=== PATIENT | male | born 1945 | race Caucasian/White ===

== ENCOUNTER 2021-09-01 23:45 | Inpatient (IN) | payer MEDICARE, OTHER ==
--- NOTE | 2021-09-01 23:53 | ED ---
Chest Pain HPI - General Stated Complaint: Chest Pain Time Seen by Provider: 09/01/21 23:47 Source: RN notes reviewed, old records reviewed Mode of arrival: EMS Limitations: no limitations - History of Present Illness Initial Comments: This is a 76-year-old male who is accepted as a transfer patient to hospital. Patient presents to outside facility for shortness of breath chest pain. Patient has no other significant current complaints. Symptoms of chest pain shortness of breath or improving. Patient denying any recent fever cough or congestion without any other new complaints MD Complaint: chest pain -: hour(s) Onset: during rest, during exertion Pain Location: substernal, left chest Pain Radiation: LUE Severity: moderate Severity scale (1-10): 4 Quality: tightness Consistency: intermittent Improves With: nitroglycerin Worsens With: nothing Context: new medications Anginal Symptoms: dyspnea Other Symptoms: palpitations Treatments Prior to Arrival: aspirin, nitroglycerin, oxygen - Related Data Allergies Allergy/AdvReac Type Severity Reaction Status Date / Time No Known Allergies Allergy Verified 09/02/21 00:13 Review of Systems ROS Statement: Those systems with pertinent positive or pertinent negative responses have been documented in the HPI. ROS Other: All systems not noted in ROS Statement are negative. EKG Findings - EKG Comments: EKG Findings:: EKG shows sinus rhythm 80 ID 186 QRS 150 QTC 493 General Exam General appearance: alert, in no apparent distress, anxious Head exam: Present: atraumatic, normocephalic, normal inspection Eye exam: Present: normal appearance, PERRL, EOMI. Absent: scleral icterus, conjunctival injection, periorbital swelling ENT exam: Present: normal exam, mucous membranes moist Neck exam: Present: normal inspection. Absent: tenderness, meningismus, lymphadenopathy Respiratory exam: Present: normal lung sounds bilaterally. Absent: respiratory distress, wheezes, rales, rhonchi, stridor Cardiovascular Exam: Present: regular rate, normal rhythm, normal heart sounds. Absent: systolic murmur, diastolic murmur, rubs, gallop, clicks GI/Abdominal exam: Present: soft, normal bowel sounds. Absent: distended, tenderness, guarding, rebound, rigid Extremities exam: Present: normal inspection, full ROM, normal capillary refill. Absent: tenderness, pedal edema, joint swelling, calf tenderness Back exam: Present: normal inspection Neurological exam: Present: alert, oriented X3, CN II-XII intact Psychiatric exam: Present: normal affect, normal mood Skin exam: Present: warm, dry, intact, normal color. Absent: rash Course Vital Signs 09/01/21 23:48 Pulse Rate 81 Respiratory 18 Rate Blood Pressure 146/83 O2 Sat by Pulse 95 Oximetry - Reevaluation(s) Reevaluation #1: 09/02/21 02:00 Medical record is reviewed Reevaluation #2: 09/02/21 02:00 Transfer paperwork is also been reviewed Reevaluation #3: 09/02/21 02:00 Patient informed results and questions answered Chest Pain MDM - MDM 86 male presenting from outside facility for chest pain with elevated troponin, acute non-ST elevated FL. Patient be admitted for cardiac evaluation and treatment Disposition Clinical Impression: Chest pain, Acute non-ST elevation myocardial infarction (NSTEMI) Disposition: ADMITTED IP TO THIS [facility] Condition: Serious Is patient prescribed a controlled substance at d/c from ED?: No Referrals: Fernando Baker MD [Primary Care Provider] - 1-2 days
[2021-09-02 00:24] LABS: Basophils % (A) 0 %; Eosinophils # (A) 0.1 k/uL (0-0.7); Eosinophils % (A) 0 %; HCT 42.9 % (39.0-53.0); HGB 13.1 gm/dL (13.0-17.5); Lymphocytes % (A) 8 %; MCH 29.7 pg (25.0-35.0); MCHC 30.7 g/dL (31.0-37.0); MCV 96.8 fL (80.0-100.0); Monocytes # (A) 0.3 k/uL (0-1.0); Monocytes % (A) 3 %; Neutrophils # (A) 11.6 k/uL (1.3-7.7); Neutrophils % (A) 89 %; Platelet Count 216 k/uL (150-450); RBC 4.43 m/uL (4.30-5.90); WBC 13.1 k/uL (3.8-10.6)
[2021-09-02 00:41] LABS: INR 1.3 (<1.2); Partial Thromboplastin Time 24.8 sec (22.0-30.0); Prothrombin Time 13.6 sec (9.0-12.0)
--- NOTE | 2021-09-02 00:41 | XR ---
EXAMINATION TYPE: XR chest 2V DATE OF EXAM: 09/02/2021 COMPARISON: NONE HISTORY: Chest pain TECHNIQUE: 2 views FINDINGS: There is some blunting of the left costophrenic angle. Heart size is normal. There are no h ilar masses. There are chest leads. Thoracic aorta is atheromatous. IMPRESSION: There is small left pleural effusion. No heart failure.
[2021-09-02 01:04] LABS: Calcium 9.8 mg/dL (8.4-10.2); Total Bilirubin 1.5 mg/dL (0.2-1.3)
[2021-09-02 01:56] LABS: Magnesium 1.4 mg/dL (1.6-2.3); Potassium 4.7 mmol/L (3.5-5.1)
[2021-09-02 01:57] LABS: Total Protein 6.9 g/dL (6.3-8.2)
[2021-09-02] MEDS ORDERED: HEPARIN SODIUM 1,000 UN/ML (10ML VL) IV ONE (01:58)
[2021-09-02] MEDS ORDERED: MORPHINE SULFATE 4 MG/ML SYRINGE IV PRN (01:58)
[2021-09-02] MEDS ORDERED: NITROGLYCERIN SL TABS 0.4 MG TAB SUBLINGUAL PRN (01:58)
[2021-09-02] MEDS: HEPARIN SOD,PORK IN 0.45% NACL 25,000 UNIT in 0.45% NACL 1 250ML.BAG IV SCH (02:19)
[2021-09-02] MEDS: METOPROLOL TARTRATE 25 MG TAB PO SCH ×2 (08:49→21:43)
--- NOTE | 2021-09-02 09:18 | P.CRDCN ---
History of Present Illness Consult date: 09/02/21 Consult reason: non-Q-wave MO Chief complaint: Chest pain History of present illness: 76-year-old gentleman with history of diabetes coronary artery disease status post prior angioplasty who lives in [facility] and had a kier hand in [place] but had myocardial infarction and angioplasty of either circumflex coronary artery and LAD in November of last year He comes in complaining of chest pain. He describes it as a pressure in the middle of his chest as a burning discomfort moderate to severe intensity at rest unrelated to exertion and not associated with diaphoresis. He had mild shortness of breath associated with it There is no history of leg edema PND or orthopnea There is no history of focal neurological deficits EKG shows sinus rhythm with nonspecific ST-T wave changes 2 sets of troponins are slightly elevated Patient is currently in IV heparin beta blockers and aspirin I advised the patient to undergo cardiac catheterization for further evaluation he had been explained of risk benefits and alternatives understood and accepted I will add a statin to what he is on I will obtain a 2-D echo to evaluate his LV function Review of Systems Constitutional: Denies chills. Denies fever. Eyes: Denies blurred vision. Denies pain. Ears, nose, mouth and throat: Denies headache. Denies sore throat. Cardiovascular: Significant for chest pain and mild shortness of breath Respiratory: Denies cough. Gastrointestinal: Denies abdominal pain. Denies diarrhea. Denies nausea. Denies vomiting. Musculoskeletal: Denies myalgias. Integumentary: Denies pruritus. Denies rash. Neurological: Denies numbness. Denies weakness. Psychiatric: Denies anxiety. Denies depression. Endocrine: Denies fatigue. Denies weight change. Genitourinary: Denies burning, hematuria, frequency of urination. Hematological: No anemia or excess bleeding. Past Medical History Past Medical History: Atrial Fibrillation, Asthma, Coronary Artery Disease (CAD), CVA/TIA, Diabetes Mellitus, Hypertension Additional Past Medical History / Comment(s): type 2 diabetes controlled History of Any Multi-Drug Resistant Organisms: None Reported Past Surgical History: Heart Catheterization With Stent, Orthopedic Surgery Additional Past Surgical History / Comment(s): stent placed november 2020 Past Anesthesia/Blood Transfusion Reactions: No Reported Reaction Date of Last Stent Placement:: 11/2020 Past Psychological History: Anxiety, Depression Smoking Status: Never smoker Past Alcohol Use History: Occasional - Past Family History Mother Family Medical History: Dementia Additional Family Medical History / Comment(s): mother at 58 years old of alzhimar disease Brother(s) Family Medical History: CVA/TIA, Dementia Father Family Medical History: Diabetes Mellitus Additional Family Medical History / Comment(s): of old age at 92 years old Sister(s) Family Medical History: Cancer, Coronary Artery Disease (CAD) Additional Family Medical History / Comment(s): Sister of lung cancer Medications and Allergies Allergies Allergy/AdvReac Type Severity Reaction Status Date / Time No Known Allergies Allergy Verified 09/02/21 09:11 Physical Exam Vitals: Vital Signs Temp Pulse Pulse Resp BP BP Pulse Ox 09/02/21 08:00 98.4 F 69 16 148/79 09/02/21 04:15 97.9 F 73 18 154/84 97 09/02/21 02:16 62 18 130/69 95 09/01/21 23:48 81 18 146/83 95 Intake and Output 09/01/21 09/02/21 09/02/21 22:59 06:59 14:59 Other: # Voids 1 Weight 97.522 kg General: The patient is awake and alert, in no distress, and does not appear acutely ill. Skin: Skin is warm and dry and no rashes or lesions are noted. Eye: Pupils are equal, round and reactive to light, extra-ocular movements are intact; there is normal conjunctiva bilaterally. Ears, nose, mouth and throat: There are moist mucous membranes and no oral lesions. Neck: The neck is supple, there is no tenderness or JVD. Cardiovascular: There is a regular rate and rhythm. No murmur, rub or gallop is appreciated. Respiratory: Lungs show mild bilateral wheezes Gastrointestinal: Soft, non-distended, non-tender abdomen without masses or organomegaly noted. There is no rebound or guarding present. Bowel sounds are unremarkable. Back: There is no tenderness to palpation in the midline. There is no obvious deformity. Musculoskeletal: Normal ROM, no tenderness, There is no pedal edema. There is no calf tenderness or swelling. Extremities: No edema. Vascular: Femoral pulse is normal. Posterior tibial pulses are normal .Dorsalis pedis is palpable. Neurological: CN II-XII intact. There are no obvious motor or sensory deficits. Speech is normal. Psychiatric: Cooperative, appropriate mood & affect, normal judgment. Results 09/02/21 00:09 09/02/21 00:09 Cardiac Enzymes 09/02/21 09/02/21 09/02/21 Range/Units 00:09 00:09 04:46 AST 41 (17-59) U/L Troponin I 0.161 H* 0.203 H* (0.000-0.034) ng/mL Coagulation 09/02/21 Range/Units 00:09 PT 13.6 H (9.0-12.0) sec APTT 24.8 (22.0-30.0) sec CBC 09/02/21 Range/Units 00:09 WBC 13.1 H (3.8-10.6) k/uL RBC 4.43 (4.30-5.90) m/uL Hgb 13.1 (13.0-17.5) gm/dL Hct 42.9 (39.0-53.0) % Plt Count 216 (150-450) k/uL Comprehensive Metabolic Panel 09/02/21 Range/Units 00:09 Sodium 139 (137-145) mmol/L Potassium 4.7 (3.5-5.1) mmol/L Chloride 107 (98-107) mmol/L Carbon Dioxide 21 L (22-30) mmol/L BUN 26 H (9-20) mg/dL Creatinine 1.59 H (0.66-1.25) mg/dL Glucose 125 H (74-99) mg/dL Calcium 9.8 (8.4-10.2) mg/dL AST 41 (17-59) U/L ALT 18 (4-49) U/L Alkaline Phosphatase 69 (38-126) U/L Total Protein 6.9 (6.3-8.2) g/dL Albumin 4.0 (3.5-5.0) g/dL Current Medications Generic Name Dose Route Start Last Admin Trade Name Freq PRN Reason Stop Dose Admin Aspirin 325 mg 09/03/21 09:00 Aspirin 325 Mg Tab PO DAILY ALLYSON Heparin Sodium/Sodium Chloride 250 mls @ 10 mls/hr 09/02/21 02:00 09/02/21 02:19 25,000 unit/ Sodium Chloride IV 10.254 units/kg/hr .Q24H ALLYSON 10 mls/hr Administration Protocol 10.254 UNITS/KG/HR Metoprolol Tartrate 25 mg 09/02/21 09:00 09/02/21 08:49 Metoprolol Tartrate 25 Mg Tab PO 25 mg BID ALLYSON Administration Morphine Sulfate 4 mg 09/02/21 01:58 Morphine Sulfate 4 Mg/Ml Syringe IV Q4HR PRN Chest Pain Nitroglycerin 0.4 mg 09/02/21 01:58 Nitroglycerin Sl Tabs 0.4 Mg Tab SUBLINGUAL Q5M PRN Chest Pain Intake and Output 09/01/21 09/02/21 09/02/21 22:59 06:59 14:59 Other: # Voids 1 Weight 97.522 kg 09/02/21 00:09 09/02/21 00:09 EKG Interpretations (text) Normal sinus rhythm right bundle branch block nonspecific ST-T wave changes Assessment and Plan Assessment: Acute non-ST segment elevation MO Known CAD status post prior angioplasty Acute renal insufficiency Bronchospasm [id number] diabetes Plan: I advised the patient to undergo cardiac catheterization I will hydrate him and possible cath tomorrow I will treat the patient with aspirin nitrates beta blockers intravenous heparin Check an echocardiogram Check lipid profile Start lipid-lowering agents I will start albuterol and Atrovent
[2021-09-02] MEDS ORDERED: ASPIRIN 325 MG TAB PO STA (09:39)
[2021-09-02] MEDS ORDERED: IPRATROPIUM 0.5 MG/2.5 ML NEBU INHALATION PRN (09:40)
[2021-09-02] MEDS: NITROGLYCERIN OINT 1 INCH/GM PACKET TOPICAL SCH ×2 (12:02→17:23)
[2021-09-02] MEDS: ALBUTEROL HFA INHALER INHALATION SCH ×3 (12:04→20:01)
[2021-09-02] MEDS: IPRATROPIUM 0.5 MG/2.5 ML NEBU INHALATION SCH ×3 (12:06→20:01)
[2021-09-02] MEDS ORDERED: ALBUTEROL HFA INHALER INHALATION PRN (13:12)
--- NOTE | 2021-09-02 14:00 | ECHOF ---
Referral Reason:nstemi MEASUREMENTS -------- HEIGHT: 152.4 cm WEIGHT: 97.1 kg BP: RVIDd: 3.6 cm (< 3.3) IVSd: 1.3 cm (0.6 - 1.1) LVIDd: 4.8 cm (3.9 - 5.3) LVPWd: 1.5 cm (0.6 - 1.1) IVSs: 2.0 cm LVIDs: 3.9 cm LVPWs: 1.5 cm LA Diam: 4.9 cm (2.7 - 3.8) LAESV Index (A-L): 52.67 ml/m Ao Diam: 2.5 cm (2.0 - 3.7) AV Cusp: 1.4 cm (1.5 - 2.6) LA Diam: 5.2 cm (2.7 - 3.8) MV EXCURSION: 20.304 mm (> 18.000) MV EF SLOPE: 85 mm/s (70 - 150) EPSS: 1.0 cm MV E Ralph: 0.99 m/s MV DecT: 126 ms MV A Ralph: 0.38 m/s MV E/A Ratio: 2.64 AV maxP.22 mmHg AV meanP.25 mmHg RAP: 5.00 mmHg RVSP: 42.90 mmHg FINDINGS -------- Sinus rhythm. This was a technically adequate study. The left ventricular size is normal. There is mild concentric left ventricular hypertrophy. Overa ll left ventricular systolic function is mildly impaired with, an EF between 45 - 50 %. The right ventricle is normal in size. LA is severely dilated >40 ml/m2 The right atrial size is normal. There is mild aortic regurgitation. There is mild aortic stenosis present. Peak/mean gradient acr oss the Aortic Valve is 19.22mmHg / 12.25mmHg. Can't exclude Bicuspid valve vs fused cusp. Moderate mitral regurgitation is present. No regurgitation noted There is mild pulmonary hypertension. The right ventricular systolic press ure, as measured by Doppler, is 42.90mmHg. Trace/mild (physiologic) pulmonic regurgitation. There is no pericardial effusion. CONCLUSIONS -------- 1. The left ventricular size is normal. 2. There is mild concentric left ventricular hypertrophy. 3. Overall left ventricular systolic function is mildly impaired with, an EF between 45 - 50 %. 4. The right ventricle is normal in size. 5. LA is severely dilated >40 ml/m2 6. The right atrial size is normal. 7. There is mild aortic regurgitation. 8. There is mild aortic stenosis present. 9. Peak/mean gradient across the Aortic Valve is 19.22mmHg / 12.25mmHg. 10. Can't exclude Bicuspid valve vs fused cusp. 11. Moderate mitral regurgitation is present. 12. No regurgitation noted 13. There is mild pulmonary hypertension. 14. The right ventricular systolic pressure, as measured by Doppler, is 42.90mmHg. 15. Trace/mild (physiologic) pulmonic regurgitation. 16. There is no pericardial effusion. CASE PACKER AND SEALER: Clarissa Rashid RDCS
[2021-09-02] MEDS: MAGNESIUM OXIDE 400 MG TAB PO SCH (17:22)
[2021-09-02] MEDS: busPIRone HCl 10 MG TAB PO SCH ×2 (17:22→21:43)
[2021-09-02] MEDS: CITALOPRAM HYDROBROMIDE 20 MG TAB PO SCH (17:22)
[2021-09-02] MEDS: PANTOPRAZOLE 40 MG TABLET PO SCH (17:23)
[2021-09-02] MEDS: TIMOLOL 0.5% OPHTH DROPS 5 ML BTL BOTH EYES SCH ×2 (17:23→21:44)
[2021-09-02] MEDS: CLOPIDOGREL 75 MG TAB PO SCH (17:23)
[2021-09-02] MEDS: FENOFIBRATE 54 MG TAB PO SCH (17:27)
[2021-09-02] MEDS: BRIMONIDINE TARTRATE 0.2% DROPS 5 ML BTL BOTH EYES SCH ×2 (17:27→21:44)
[2021-09-02] MEDS: lisinopriL 20 MG TAB PO SCH ×2 (17:28→21:43)
[2021-09-02] MEDS: ATORVASTATIN 80 MG TAB PO SCH (17:29)
[2021-09-02] MEDS: allopurinoL 100 MG TAB PO SCH (17:29)
[2021-09-02] MEDS ORDERED: NALOXONE 0.4 MG/ML 1 ML VIAL IV PRN (19:07)
[2021-09-02] MEDS ORDERED: ONDANSETRON 4 MG/2 ML VIAL IVP PRN (19:08)
[2021-09-02] MEDS ORDERED: LACTULOSE 20 GM/30 ML CUP PO PRN (19:08)
[2021-09-02] MEDS ORDERED: MELATONIN 3 MG TABLET PO PRN (19:08)
[2021-09-02] MEDS ORDERED: ALPRAZolam 0.25 MG TAB PO PRN (19:08)
[2021-09-02] MEDS ORDERED: CALCIUM CARBONATE 500 MG CHEWABLE PO PRN (19:08)
[2021-09-02] MEDS ORDERED: ACETAMINOPHEN TAB 325 MG TAB PO PRN (19:08)
--- NOTE | 2021-09-02 19:09 | P.HPIM ---
History of Present Illness H&P Date: 09/02/21 Chief Complaint: Chest pressure This is a pleasant 76-year-old patient, follows with Dr. Baker. Chronic stable medical conditions include atrial fibrillation, asthma, diabetes, hypertension, CAD with stent placed in November 2020. 2 days ago patient felt like a heaviness in the chest that started the evening and progressive the whole night. He started feeling like a burning sensation in the chest progressed to go to his throat. Relevant elephants sitting. There was no dizziness or lightheadedness. Patient felt short of breath. No perspiration. Finding decided to come in. Worse with activity. Some relief with rest. No radiation to the throat. Admitted with unstable angina. 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 . Denies any history of smoking or alcohol. Family history: Mother from Alzheimer's disease age of 58. Physical examination: VITAL SIGNS: Afebrile, 81, 18, 1 46 x 83, 95% room air upon presentation GENERAL: BMI 30.8, laying in bed, awake, not in distress. EYES: Pupils equal. Conjunctiva normal. HEENT: External appearance of nose and ears normal, oral cavity grossly normal. NECK: JVD not raised; masses not palpable. HEART: First and second heart sounds are normal; no edema. LUNGS: Respiratory rate normal; clear to auscultation. ABDOMEN: Soft, nontender, liver spleen not palpable, no masses palpable. PSYCH: Alert and oriented x3; mood and affect normal. MUSCULOSKELETAL:No Clubbing/cyanosis;muscles-grossly intact NEUROLOGICAL: Cranial nerves grossly intact; no facial asymmetry, power and sensation grossly intact. LYMPHATICS: No lymph nodes palpable in the axilla and neck INVESTIGATIONS, reviewed in the clinical context: White count 13.1 hemoglobin 13.1 platelets 216 sodium 139 potassium 4.726 creatinine 1.59 Troponin I 0.161, 0.203, 0.215 Lipase 209 Coronavirus [PCR]: Not detected EKG tracing personally reviewed by me-sinus rhythm, right bundle-branch block, ST segment depression in leads V2 through V5 Chest x-ray film personally reviewed by me-cardiomegaly. Some left pleural effusion 2-D echocardiogram: EF 45-50% moderate mitral regurgitation. Assessment and plan: -Acute non-Q wave myocardial infarction. Patient's symptoms are present for over 48 hours. IV heparin. Aspirin. Beta jairo. Nitropaste. 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 Follow renal function. -Intermittent asthma Albuterol HFA 2 puffs every 4 when necessary -Paroxysmal atrial fibrillation currently in sinus rhythm Hold eliquis. Patient on IV heparin -IV heparin monitoring Follow PTT -Hyperlipidemia Lipitor 80 mg a day -Anxiety depression Celexa 20 mg a day -GERD Omeprazole 20 mg a day -Essential hypertension Zestril 20 mg twice a day, Lopressor 25 mg twice a day -Obesity BMI 30.8 Weight loss measures Home medications resumed. Lopressor. Hold atenolol. On eliquis. IV heparin. Hold Glucophage. Accu-Cheks. We do not have a baseline creatinine. Follow BMP. Consult nephrology. Consult cardiology. Care was discussed with the patient. Given the complexity and severity of patient's condition expect the patient to be in the hospital at least for 2 overnights Past Medical History Past Medical History: Atrial Fibrillation, Asthma, Coronary Artery Disease (CAD), CVA/TIA, Diabetes Mellitus, Hypertension Additional Past Medical History / Comment(s): type 2 diabetes controlled History of Any Multi-Drug Resistant Organisms: None Reported Past Surgical History: Heart Catheterization With Stent, Orthopedic Surgery Additional Past Surgical History / Comment(s): stent placed november 2020 Past Anesthesia/Blood Transfusion Reactions: No Reported Reaction Date of Last Stent Placement:: 11/2020 Past Psychological History: Anxiety, Depression Smoking Status: Never smoker Past Alcohol Use History: Occasional - Past Family History Mother Family Medical History: Dementia Additional Family Medical History / Comment(s): mother at 58 years old of alzhimar disease Brother(s) Family Medical History: CVA/TIA, Dementia Father Family Medical History: Diabetes Mellitus Additional Family Medical History / Comment(s): of old age at 92 years old Sister(s) Family Medical History: Cancer, Coronary Artery Disease (CAD) Additional Family Medical History / Comment(s): Sister of lung cancer Medications and Allergies Home Medications Medication Instructions Recorded Confirmed Type Albuterol Sulfate [Albuterol 2 puff INHALATION RT-Q4H PRN 09/02/21 09/02/21 History Sulfate Hfa] Allopurinol [Zyloprim] 100 mg PO DAILY 09/02/21 09/02/21 History Apixaban [Eliquis] 5 mg PO BID 09/02/21 09/02/21 History Atenolol/Chlorthalidone 1 tab PO DAILY 09/02/21 09/02/21 History [Atenolol/Chlorthalidone 50-25] Atorvastatin [Lipitor] 80 mg PO DAILY 09/02/21 09/02/21 History Bimatoprost [Lumigan .01% Ophth 1 drop BOTH EYES HS 09/02/21 09/02/21 History Soln] Brimonidine Tartrate/Timolol 1 drop BOTH EYES BID 09/02/21 09/02/21 History [Combigan 0.2%-0.5% Eye Drops] Citalopram Hydrobromide [CeleXA] 20 mg PO DAILY 09/02/21 09/02/21 History Clopidogrel [Plavix] 75 mg PO DAILY 09/02/21 09/02/21 History Fenofibrate,Micronized 67 mg PO DAILY 09/02/21 09/02/21 History [Fenofibrate] Magnesium Oxide [Mag-Ox] 1,600 mg PO DAILY 09/02/21 09/02/21 History Multivitamins, Thera [Multivitamin 1 tab PO DAILY 09/02/21 09/02/21 History (formulary)] Omeprazole 20 mg PO DAILY 09/02/21 09/02/21 History busPIRone HCL 10 mg PO BID 09/02/21 09/02/21 History lisinopriL [Zestril] 20 mg PO BID 09/02/21 09/02/21 History metFORMIN HCL ER [Glucophage XR] 500 mg PO DAILY 09/02/21 09/02/21 History Allergies Allergy/AdvReac Type Severity Reaction Status Date / Time No Known Allergies Allergy Verified 09/02/21 09:11 Physical Exam Vitals: Vital Signs Temp Pulse Pulse Resp BP BP Pulse Ox 09/02/21 12:00 103 H 16 144/91 94 L 09/02/21 08:00 98.4 F 69 16 148/79 09/02/21 04:15 97.9 F 73 18 154/84 97 09/02/21 02:16 62 18 130/69 95 09/01/21 23:48 81 18 146/83 95 Intake and Output 09/01/21 09/02/21 09/02/21 22:59 06:59 14:59 Intake Total 86.333 Balance 86.333 Intake: Intake, IV Titration 86.333 Amount Heparin Sod,Pork in 0.45% 86.333 NaCl 25,000 unit In 0.45 % NaCl 1 250ml.bag @ 10. 254 UNITS/KG/HR 10 mls/hr IV .Q24H [facility] Rx#: [id number] Other: # Voids 1 Weight 97.522 kg Results CBC & Chem 7: 09/02/21 00:09 09/02/21 00:09 Labs: Abnormal Lab Results - Last 24 Hours (Table) 09/02/21 09/02/21 09/02/21 Range/Units 00:09 00:09 00:09 WBC 13.1 H (3.8-10.6) k/uL MCHC 30.7 L (31.0-37.0) g/dL Neutrophils # 11.6 H (1.3-7.7) k/uL PT 13.6 H (9.0-12.0) sec INR 1.3 H (<1.2) APTT (22.0-30.0) sec Carbon Dioxide 21 L (22-30) mmol/L BUN 26 H (9-20) mg/dL Creatinine 1.59 H (0.66-1.25) mg/dL Glucose 125 H (74-99) mg/dL Magnesium 1.4 L (1.6-2.3) mg/dL Total Bilirubin 1.5 H (0.2-1.3) mg/dL Troponin I (0.000-0.034) ng/mL 09/02/21 09/02/21 09/02/21 Range/Units 00:09 04:46 08:53 WBC (3.8-10.6) k/uL MCHC (31.0-37.0) g/dL Neutrophils # (1.3-7.7) k/uL PT (9.0-12.0) sec INR (<1.2) APTT (22.0-30.0) sec Carbon Dioxide (22-30) mmol/L BUN (9-20) mg/dL Creatinine (0.66-1.25) mg/dL Glucose (74-99) mg/dL Magnesium (1.6-2.3) mg/dL Total Bilirubin (0.2-1.3) mg/dL Troponin I 0.161 H* 0.203 H* 0.215 H* (0.000-0.034) ng/mL 09/02/21 Range/Units 08:53 WBC (3.8-10.6) k/uL MCHC (31.0-37.0) g/dL Neutrophils # (1.3-7.7) k/uL PT (9.0-12.0) sec INR (<1.2) APTT 115.4 H* (22.0-30.0) sec Carbon Dioxide (22-30) mmol/L BUN (9-20) mg/dL Creatinine (0.66-1.25) mg/dL Glucose (74-99) mg/dL Magnesium (1.6-2.3) mg/dL Total Bilirubin (0.2-1.3) mg/dL Troponin I (0.000-0.034) ng/mL Thrombosis Risk Factor Assmnt - Choose All That Apply Each Risk Factor Represents 3 Points: Age 75 years or older Thrombosis Risk Factor Assessment Total Risk Factor Score: 3 Thrombosis Risk Factor Assessment Level: Moderate Risk
[2021-09-02] MEDS ORDERED: ATORVASTATIN 40 MG TAB PO SCH (21:00)
[2021-09-02] MEDS: LATANOPROST 0.005% OPHTH DROPS 2.5 ML BTL BOTH EYES SCH (21:43)
[2021-09-02] MEDS: INSULIN ASPART (NovoLOG) 100 UNIT/ML VIAL SQ SCH (21:43)
[2021-09-02 22:05] LABS: Glucose,Whole Blood 176 mg/dL (75-99)
[2021-09-03] MEDS: NITROGLYCERIN OINT 1 INCH/GM PACKET TOPICAL SCH ×5 (00:21→23:58)
[2021-09-03] MEDS: SODIUM CHLORIDE 0.9% 1,000 ML IV SCH ×3 (03:58→12:01)
[2021-09-03 04:29] LABS: ALT 13 U/L (4-49); AST 23 U/L (17-59); African American GFR (CKD) 44 (>60 ml/min/1.73 sqM); Albumin 2.9 g/dL (3.5-5.0); Alkaline Phosphatase 51 U/L (38-126); Anion Gap 7 mmol/L; Blood Urea Nitrogen 45 mg/dL (9-20); Calcium 8.4 mg/dL (8.4-10.2); Carbon Dioxide 24 mmol/L (22-30); Chloride 106 mmol/L (98-107); Glucose 157 mg/dL (74-99); Non-African American GFR(CKD) 38 (>60 ml/min/1.73 sqM); Potassium 4.1 mmol/L (3.5-5.1); Sodium 137 mmol/L (137-145); Total Bilirubin 0.9 mg/dL (0.2-1.3); Total Protein 5.4 g/dL (6.3-8.2)
[2021-09-03] MEDS: HEPARIN SOD,PORK IN 0.45% NACL 25,000 UNIT in 0.45% NACL 1 250ML.BAG IV SCH (05:59)
[2021-09-03] MEDS: INSULIN ASPART (NovoLOG) 100 UNIT/ML VIAL SQ SCH ×4 (06:14→20:48)
[2021-09-03] MEDS: PANTOPRAZOLE 40 MG TABLET PO SCH (06:15)
[2021-09-03 06:20] LABS: Glucose,Whole Blood 147 mg/dL (75-99)
[2021-09-03] MEDS: MAGNESIUM OXIDE 400 MG TAB PO SCH (08:23)
[2021-09-03] MEDS: CLOPIDOGREL 75 MG TAB PO SCH (08:23)
[2021-09-03] MEDS: METOPROLOL TARTRATE 25 MG TAB PO SCH ×2 (08:24→20:54)
[2021-09-03] MEDS: ATORVASTATIN 80 MG TAB PO SCH (08:24)
[2021-09-03] MEDS: FENOFIBRATE 54 MG TAB PO SCH (08:24)
[2021-09-03] MEDS: CITALOPRAM HYDROBROMIDE 20 MG TAB PO SCH (08:24)
[2021-09-03] MEDS: allopurinoL 100 MG TAB PO SCH (08:24)
[2021-09-03] MEDS: lisinopriL 20 MG TAB PO SCH (08:24)
[2021-09-03] MEDS: busPIRone HCl 10 MG TAB PO SCH ×2 (08:24→20:54)
[2021-09-03] MEDS: TIMOLOL 0.5% OPHTH DROPS 5 ML BTL BOTH EYES SCH ×2 (08:25→20:55)
[2021-09-03] MEDS: BRIMONIDINE TARTRATE 0.2% DROPS 5 ML BTL BOTH EYES SCH ×2 (08:25→20:55)
[2021-09-03] MEDS: IPRATROPIUM 0.5 MG/2.5 ML NEBU INHALATION SCH ×4 (08:48→20:46)
[2021-09-03] MEDS: ALBUTEROL HFA INHALER INHALATION SCH ×4 (08:48→20:46)
[2021-09-03] MEDS ORDERED: ATORVASTATIN 80 MG TAB PO SCH (09:00)
[2021-09-03] MEDS ORDERED: ASPIRIN 325 MG TAB PO SCH (09:00)
--- NOTE | 2021-09-03 09:28 | P.PN ---
Progress Note - Text Patient is chest pain-free this morning hemodynamically stable and in no apparent distress and a fairly uneventful night His BUN/creatinine have worsened since yesterday I'm going to hold off on the cardiac cath today continue to hydrate him obtain input from nephrology and possible cath tomorrow An echocardiogram showed an ejection fraction of 45-50% On exam: Patient is comfortable at rest vital signs are stable there is a jugular venous distention carotid upstroke is normal there is no bruit chest exam reveals diminished air entry at the bases heart exam reveals first and second heart sounds no gallop exam Extremities did not reveal any edema is an ejection systolic murmur in the aortic area Labs show that the creatinine is 1.7 worst and baby were yesterday Assessment and plan: Acute non-ST segment elevation [place] Known CAD status post prior angioplasty Renal insufficiency Continue medical therapy Consult nephrology Cardiac cath once the renal functions are stable
[2021-09-03 11:41] LABS: Chol/HDL Ratio 2.38 Ratio; LDL Cholesterol,Calculated 43.8 mg/dL (0.0-131.0); VLDL Calculation 15.32 mg/dL (5.00-40.00)
--- NOTE | 2021-09-03 14:03 | P.NPCON ---
History of Present Illness - Reason for Consult Consult date: 09/03/21 acute renal failure - Chief Complaint Chest pain - History of Present Illness 76-year-old gentleman coming to the hospital with chest pain. History of diabetes for more than 20 years and CAD requiring multiple coronary stents in the past. As per him he has mild kidney disease, never seen a manager transfer in the past. No previous creatinines to compare. Denies retinopathy, CVA. But does have neuropathy. Home medication includes atenolol/hydrochlorothiazide, metformin and lisinopril. No recent NSAID use or contrast studies. Denies any nausea vomiting or diarrhea. No documented hypotensive episodes. Review of Systems Constitutional: Reports as per HPI Past Medical History Past Medical History: Atrial Fibrillation, Asthma, Coronary Artery Disease (CAD), CVA/TIA, Diabetes Mellitus, Hypertension Additional Past Medical History / Comment(s): type 2 diabetes controlled History of Any Multi-Drug Resistant Organisms: None Reported Past Surgical History: Heart Catheterization With Stent, Orthopedic Surgery Additional Past Surgical History / Comment(s): stent placed november 2020 Past Anesthesia/Blood Transfusion Reactions: No Reported Reaction Date of Last Stent Placement:: 11/2020 Past Psychological History: Anxiety, Depression Smoking Status: Never smoker Past Alcohol Use History: Occasional - Past Family History Mother Family Medical History: Dementia Additional Family Medical History / Comment(s): mother at 58 years old of alzhimar disease Brother(s) Family Medical History: CVA/TIA, Dementia Father Family Medical History: Diabetes Mellitus Additional Family Medical History / Comment(s): of old age at 92 years old Sister(s) Family Medical History: Cancer, Coronary Artery Disease (CAD) Additional Family Medical History / Comment(s): Sister of lung cancer Medications and Allergies Home Medications Medication Instructions Recorded Confirmed Type Albuterol Sulfate [Albuterol 2 puff INHALATION RT-Q4H PRN 09/02/21 09/02/21 History Sulfate Hfa] Allopurinol [Zyloprim] 100 mg PO DAILY 09/02/21 09/02/21 History Apixaban [Eliquis] 5 mg PO BID 09/02/21 09/02/21 History Atenolol/Chlorthalidone 1 tab PO DAILY 09/02/21 09/02/21 History [Atenolol/Chlorthalidone 50-25] Atorvastatin [Lipitor] 80 mg PO DAILY 09/02/21 09/02/21 History Bimatoprost [Lumigan .01% Ophth 1 drop BOTH EYES HS 09/02/21 09/02/21 History Soln] Brimonidine Tartrate/Timolol 1 drop BOTH EYES BID 09/02/21 09/02/21 History [Combigan 0.2%-0.5% Eye Drops] Citalopram Hydrobromide [CeleXA] 20 mg PO DAILY 09/02/21 09/02/21 History Clopidogrel [Plavix] 75 mg PO DAILY 09/02/21 09/02/21 History Fenofibrate,Micronized 67 mg PO DAILY 09/02/21 09/02/21 History [Fenofibrate] Magnesium Oxide [Mag-Ox] 1,600 mg PO DAILY 09/02/21 09/02/21 History Multivitamins, Thera [Multivitamin 1 tab PO DAILY 09/02/21 09/02/21 History (formulary)] Omeprazole 20 mg PO DAILY 09/02/21 09/02/21 History busPIRone HCL 10 mg PO BID 09/02/21 09/02/21 History lisinopriL [Zestril] 20 mg PO BID 09/02/21 09/02/21 History metFORMIN HCL ER [Glucophage XR] 500 mg PO DAILY 09/02/21 09/02/21 History Allergies Allergy/AdvReac Type Severity Reaction Status Date / Time No Known Allergies Allergy Verified 09/02/21 09:11 Physical Exam Vitals: Vital Signs Temp Pulse Resp BP Pulse Ox 09/03/21 12:00 50 L 16 127/65 97 09/03/21 08:00 63 16 130/60 96 09/03/21 04:00 97.1 F L 48 L 16 114/63 95 09/03/21 02:00 57 L 18 09/03/21 00:00 96.6 F L 57 L 18 96 09/02/21 20:00 97.6 F 57 L 18 124/77 96 09/02/21 16:00 62 16 108/57 Intake and Output 09/02/21 09/03/21 09/03/21 22:59 06:59 14:59 Intake Total 74.866 76.261 180 Balance 74.866 76.261 180 Intake: Intake, IV Titration 74.866 76.261 Amount Heparin Sod,Pork in 0.45% 74.866 76.261 NaCl 25,000 unit In 0.45 % NaCl 1 250ml.bag @ 10. 254 UNITS/KG/HR 10 mls/hr IV .Q24H [facility] Rx#: [id number] Oral 180 Other: Voiding Method Toilet Toilet Toilet Urinal Urinal Urinal # Voids 2 No acute distress S1-S2 heard Diminished breath sounds Abdomen soft Trace edema Results - Lab Results Most recent lab results Calcium 8.4 mg/dL (8.4-10.2) 09/03/21 03:32 Magnesium 1.4 mg/dL (1.6-2.3) L 09/02/21 00:09 09/02/21 00:09 09/03/21 03:32 Assessment and Plan Assessment: #1 acute kidney injury suspect hemodynamics. -Baseline creatinine unknown. Admission creatinine 1.5 MG per DL ---> 1.8 today. #2 CAD with multiple coronary stents. #3 diabetes on metformin at home. #4 suspected CKD3 history of diabetes Plan: #1 discussed with the patient, risks and benefits with contrast. Patient agreeable for dialysis if need arises from contrast associated nephropathy. #2 discontinue lisinopril for now can be restarted once renal function stable post cardiac cath. #3 agree with holding chlorthalidone for now. #4 IV fluids normal saline at 100 ML's thorough #5 avoid nephrotoxic agents and hypotensive episodes. #6 repeat labs in the morning
--- NOTE | 2021-09-03 16:14 | US ---
EXAMINATION TYPE: US kidneys/renal and bladder DATE OF EXAM: 09/03/2021 COMPARISON: NONE CLINICAL HISTORY: micky. EXAM MEASUREMENTS: Right Kidney: 10.0 x 5.9 x 5.3 cm Left Kidney: 9.8 x 5.2 x 4.9 cm Right Kidney: No hydronephrosis or masses seen Left Kidney: No hydronephrosis or masses seen Bladder: wnl There is no evidence for hydronephrosis at this point in time. No nephrolithiasis is seen. No marsha s are identified. The urinary bladder is anechoic. IMPRESSION: Negative retroperitoneal sonogram exam. No evidence of renal mass or obstruction.
--- NOTE | 2021-09-03 16:28 | P.PN ---
Progress Note - Text Progress Note Date: 09/03/21 Chief Complaint: Chest pressure This is a pleasant 76-year-old patient, follows with Dr. Baker. Chronic stable medical conditions include atrial fibrillation, asthma, diabetes, hypertension, CAD with stent placed in November 2020. 2 days ago patient felt like a heaviness in the chest that started the evening and progressive the whole night. He started feeling like a burning sensation in the chest progressed to go to his throat. Relevant elephants sitting. There was no dizziness or lightheadedness. Patient felt short of breath. No perspiration. Finding decided to come in. Worse with activity. Some relief with rest. No radiation to the throat. Admitted with unstable angina. IV heparin. September 03:. IV heparin. No chest pain. Cardiac catheterization held for now because of renal function. IV fluids. Review of systems: Was done for constitutional, cardiovascular, GI, pulmonary. relevant finding as above Active Medications Acetaminophen (Acetaminophen Tab 325 Mg Tab) 650 mg PO Q6HR PRN PRN Reason: Mild Pain or Fever > 100.5 Albuterol Sulfate (Albuterol Hfa Inhaler) 2 puff INHALATION RT-QID [facility] Last Admin: 09/03/21 16:14 Dose: 2 puff Documented by: Albuterol Sulfate (Albuterol Hfa Inhaler) 2 puff INHALATION RT-Q4H PRN PRN Reason: Shortness Of Breath Allopurinol (Allopurinol 100 Mg Tab) 100 mg PO DAILY [facility] Last Admin: 09/03/21 08:24 Dose: 100 mg Documented by: Alprazolam (Alprazolam 0.25 Mg Tab) 0.25 mg PO Q6HR PRN PRN Reason: Anxiety Aspirin (Aspirin 325 Mg Tab) 325 mg PO DAILY [facility] Last Admin: 09/03/21 08:24 Dose: 325 mg Documented by: Atorvastatin Calcium (Atorvastatin 80 Mg Tab) 80 mg PO DAILY [facility] Last Admin: 09/03/21 08:24 Dose: 80 mg Documented by: Brimonidine Tartrate (Brimonidine Tartrate 0.2% Drops 5 Ml Btl) 1 drops BOTH EYES BID [facility] Last Admin: 09/03/21 08:25 Dose: 1 drops Documented by: Buspirone HCl (Buspirone Hcl 10 Mg Tab) 10 mg PO BID [facility] Last Admin: 09/03/21 08:24 Dose: 10 mg Documented by: Calcium Carbonate/Glycine (Calcium Carbonate 500 Mg Chewable) 1,000 mg PO Q4HR PRN PRN Reason: Dyspepsia Citalopram Hydrobromide (Citalopram Hydrobromide 20 Mg Tab) 20 mg PO DAILY [facility] Last Admin: 09/03/21 08:24 Dose: 20 mg Documented by: Clopidogrel Bisulfate (Clopidogrel 75 Mg Tab) 75 mg PO DAILY [facility] Last Admin: 09/03/21 08:23 Dose: 75 mg Documented by: Fenofibrate (Fenofibrate 54 Mg Tab) 54 mg PO DAILY [facility] Last Admin: 09/03/21 08:24 Dose: 54 mg Documented by: Heparin Sodium/Sodium Chloride (25,000 unit/ Sodium Chloride) 250 mls @ 10 mls/hr IV .Q24H [facility]; Protocol Last Admin: 09/03/21 05:59 Dose: 9.254 units/kg/hr, 9.025 mls/hr Documented by: Sodium Chloride (Saline 0.9%) 1,000 mls @ 100 mls/hr IV .Q10H [facility] Last Admin: 09/03/21 12:01 Dose: 100 mls/hr Documented by: Insulin Aspart (Insulin Aspart (Novolog) 100 Unit/Ml Vial) 0 unit SQ ACHS [facility]; Protocol Last Admin: 09/03/21 11:57 Dose: Not Given Documented by: Ipratropium Paicines (Ipratropium 0.5 Mg/2.5 Ml Nebu) 0.5 mg INHALATION RT-QID PRN PRN Reason: Shortness Of Breath Or Wheezing Ipratropium Paicines (Ipratropium 0.5 Mg/2.5 Ml Nebu) 0.5 mg INHALATION RT-QID [facility] Last Admin: 09/03/21 16:15 Dose: Not Given Documented by: Lactulose (Lactulose 20 Gm/30 Ml Cup) 20 gm PO DAILY PRN PRN Reason: Constipation Latanoprost (Latanoprost 0.005% Ophth Drops 2.5 Ml Btl) 1 drops BOTH EYES [facility] Last Admin: 09/02/21 21:43 Dose: 1 drops Documented by: Magnesium Oxide (Magnesium Oxide 400 Mg Tab) 1,600 mg PO DAILY [facility] Last Admin: 09/03/21 08:23 Dose: 1,600 mg Documented by: Melatonin (Melatonin 3 Mg Tablet) 3 mg PO HS PRN PRN Reason: Insomnia Metoprolol Tartrate (Metoprolol Tartrate 25 Mg Tab) 25 mg PO BID [facility] Last Admin: 09/03/21 08:24 Dose: 25 mg Documented by: Morphine Sulfate (Morphine Sulfate 4 Mg/Ml Syringe) 4 mg IV Q4HR PRN PRN Reason: Chest Pain Naloxone HCl (Naloxone 0.4 Mg/Ml 1 Ml Vial) 0.2 mg IV Q2M PRN PRN Reason: Opioid Reversal Nitroglycerin (Nitroglycerin Sl Tabs 0.4 Mg Tab) 0.4 mg SUBLINGUAL Q5M PRN PRN Reason: Chest Pain Nitroglycerin (Nitroglycerin Oint 1 Inch/Gm Packet) 1 inch TOPICAL Q6HR [facility] Last Admin: 09/03/21 12:00 Dose: 1 inch Documented by: Ondansetron HCl (Ondansetron 4 Mg/2 Ml Vial) 4 mg IVP Q8HR PRN PRN Reason: Nausea And Vomiting Pantoprazole Sodium (Pantoprazole 40 Mg Tablet) 40 mg PO DAILY@0730 [facility] Last Admin: 09/03/21 06:15 Dose: 40 mg Documented by: Timolol Maleate (Timolol 0.5% Ophth Drops 5 Ml Btl) 1 drops BOTH EYES BID [facility] Last Admin: 09/03/21 08:25 Dose: 1 drops Documented by: Past medical history to include: Atrial fibrillation, asthma, CAD with stent in November 2020, diabetes, hypertension, TIA/stroke, anxiety depression Social history: 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 . Denies any history of smoking or alcohol. Family history: Mother from Alzheimer's disease age of 58. Physical examination: VITAL SIGNS: 50, 16, 127/65, 97% room air GENERAL: laying in bed, awake, comfortable EYES: Pupils equal. Conjunctiva normal. HEENT: External appearance of nose and ears normal, oral cavity grossly normal. NECK: JVD not raised; masses not palpable. HEART: First and second heart sounds are normal; no edema. LUNGS: Respiratory rate normal; clear to auscultation. ABDOMEN: Soft, nontender, liver spleen not palpable, no masses palpable. PSYCH: Alert and oriented x3; mood and affect normal. MUSCULOSKELETAL:No Clubbing/cyanosis;muscles-grossly intact NEUROLOGICAL: Cranial nerves grossly intact; no facial asymmetry, power and sensation grossly intact. INVESTIGATIONS, reviewed in the clinical context: September 03: Potassium 4.1 BUN 45 creatinine 1.73 LDL 43 Renal ultrasound: Unremarkable White count 13.1 hemoglobin 13.1 platelets 216 sodium 139 potassium 4.726 creatinine 1.59 Troponin I 0.161, 0.203, 0.215 Lipase 209 Coronavirus [PCR]: Not detected EKG tracing personally reviewed by me-sinus rhythm, right bundle-branch block, ST segment depression in leads V2 through V5 Chest x-ray film personally reviewed by me-cardiomegaly. Some left pleural effusion 2-D echocardiogram: EF 45-50% moderate mitral regurgitation. Assessment and plan: -Acute non-Q wave myocardial infarction. Patient's symptoms are present for over 48 hours. IV heparin. Aspirin. Beta jairo. Nitropaste. 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 Follow renal function. Follow nephrology -Intermittent asthma Albuterol HFA 2 puffs every 4 when necessary -Paroxysmal atrial fibrillation currently in sinus rhythm Hold eliquis. Patient on IV heparin -IV heparin monitoring Follow PTT -Hyperlipidemia Lipitor 80 mg a day -Anxiety depression Celexa 20 mg a day -GERD Omeprazole 20 mg a day -Essential hypertension Zestril 20 mg twice a day, Lopressor 25 mg twice a day -Obesity BMI 30.8 Weight loss measures Continue hydration. Other medications to continue. Repeat renal function. Fol low with cardiac surgery. Discussed with patient. IV heparin.
[2021-09-03 17:40] LABS: Glucose,Whole Blood 146 mg/dL (75-99)
[2021-09-03] MEDS: LATANOPROST 0.005% OPHTH DROPS 2.5 ML BTL BOTH EYES SCH (20:55)
[2021-09-03 23:15] LABS: Appearance,Urine Clear (Clear); Bilirubin,Urine Negative (Negative); Blood,Urine Negative (Negative); Color,Urine Light Yellow; Glucose,Urine (UA) Negative (Negative); Ketones,Urine Negative (Negative); Leukocyte Esterase,Urine Negative (Negative); Nitrite,Urine Negative (Negative); Protein,Urine Negative (Negative); Specific Gravity,Urine 1.017 (1.001-1.035); Urobilinogen,Urine <2.0 mg/dL (<2.0)
[2021-09-04] MEDS: SODIUM CHLORIDE 0.9% 1,000 ML IV SCH ×2 (03:00→17:45)
[2021-09-04] MEDS: INSULIN ASPART (NovoLOG) 100 UNIT/ML VIAL SQ SCH ×4 (05:39→21:19)
[2021-09-04] MEDS: PANTOPRAZOLE 40 MG TABLET PO SCH (05:42)
[2021-09-04] MEDS: NITROGLYCERIN OINT 1 INCH/GM PACKET TOPICAL SCH ×4 (05:53→23:58)
[2021-09-04 06:13] LABS: Glucose,Whole Blood 152 mg/dL (75-99)
[2021-09-04] MEDS ORDERED: HEPARIN SODIUM,PORCINE 2,500 UNIT in SODIUM CHLORIDE 0.9% 250 ML IRRIGATION PRN (07:00)
[2021-09-04] MEDS ORDERED: HEPARIN SODIUM,PORCINE 10,000 UNIT in SODIUM CHLORIDE 0.9% 1,000 ML IRRIGATION PRN (07:00)
[2021-09-04 07:16] LABS: Albumin 2.9 g/dL (3.5-5.0); Calcium 8.7 mg/dL (8.4-10.2); Magnesium 1.6 mg/dL (1.6-2.3); Potassium 4.4 mmol/L (3.5-5.1); Total Bilirubin 0.6 mg/dL (0.2-1.3); Total Protein 5.6 g/dL (6.3-8.2)
[2021-09-04] MEDS: ALBUTEROL HFA INHALER INHALATION SCH ×4 (08:46→20:25)
[2021-09-04] MEDS: IPRATROPIUM 0.5 MG/2.5 ML NEBU INHALATION SCH ×4 (08:50→20:20)
[2021-09-04] MEDS ORDERED: NITROGLYCERIN SL TABS 0.4 MG TAB SUBLINGUAL PRN (09:17)
[2021-09-04] MEDS ORDERED: ALPRAZolam 0.25 MG TAB PO PRN (09:17)
[2021-09-04] MEDS ORDERED: ALPRAZolam 0.5 MG TAB PO PRN (09:17)
[2021-09-04] MEDS ORDERED: ATORVASTATIN 80 MG TAB PO STA (09:17)
[2021-09-04] MEDS ORDERED: ASPIRIN 325 MG TAB PO STA (09:17)
[2021-09-04] MEDS: HEPARIN SOD,PORK IN 0.45% NACL 25,000 UNIT in 0.45% NACL 1 250ML.BAG IV SCH (09:26)
[2021-09-04] MEDS: allopurinoL 100 MG TAB PO SCH (09:29)
[2021-09-04] MEDS: METOPROLOL TARTRATE 25 MG TAB PO SCH ×2 (09:29→21:19)
[2021-09-04] MEDS: CLOPIDOGREL 75 MG TAB PO SCH (09:29)
[2021-09-04] MEDS: busPIRone HCl 10 MG TAB PO SCH ×2 (09:29→21:19)
[2021-09-04] MEDS: FENOFIBRATE 54 MG TAB PO SCH (09:29)
[2021-09-04] MEDS: MAGNESIUM OXIDE 400 MG TAB PO SCH (09:30)
[2021-09-04] MEDS: CITALOPRAM HYDROBROMIDE 20 MG TAB PO SCH (09:30)
[2021-09-04] MEDS: TIMOLOL 0.5% OPHTH DROPS 5 ML BTL BOTH EYES SCH ×2 (09:31→21:20)
[2021-09-04] MEDS: BRIMONIDINE TARTRATE 0.2% DROPS 5 ML BTL BOTH EYES SCH ×2 (09:31→21:20)
[2021-09-04 09:59] LABS: Urine Creatinine 73.5 mg/dL (39.0-259.0)
--- NOTE | 2021-09-04 11:01 | P.PN ---
Subjective Principal diagnosis: Patient is seen for follow-up for acute kidney injury. Serum creatinine was 1.59 on admission and increased to 1.73 yesterday. Today it is down to 1.5 again. Patient has had good urine output. Blood pressure had been low with systolic around 10 8 mmHg for lowest. Patient was maintained on RADHA inhibitor as prior to admission this is currently on hold. Patient was admitted with chest pain. Currently he is maintained on IV fluids at 100 mL an hour. Objective - Vital Signs Vital signs: Vital Signs Temp 97.8 F 09/04/21 04:00 Pulse 50 L 09/04/21 04:00 Resp 18 09/04/21 04:00 BP 113/64 09/04/21 04:00 Pulse Ox 96 09/04/21 04:00 Intake & Output 09/03/21 09/04/21 09/04/21 18:59 06:59 18:59 Intake Total 180 247.736 Output Total 300 Balance 180 -300 247.736 Intake: Intake, IV Titration 247.736 Amount Heparin Sod,Pork in 0.45% 247.736 NaCl 25,000 unit In 0.45 % NaCl 1 250ml.bag @ 10. 254 UNITS/KG/HR 10 mls/hr IV .Q24H [facility] Rx#: [id number] Oral 180 Output: Urine 300 Other: Voiding Method Toilet Toilet Urinal Urinal # Voids 2 1 - Exam On examination patient is comfortable awake alert oriented 3 not in any acute distress. Examination of the heart S1 and S2 Examination lungs bilateral breath sounds are heard Examination of the abdomen reveals it to be soft nontender Examination of lower extremity shows trace edema bilaterally BUILD[employer]RAF[employer] exam is grossly intact - Labs CBC & Chem 7: 09/02/21 00:09 09/04/21 05:50 Labs: Abnormal Lab Results - Last 24 Hours (Table) 09/03/21 09/04/21 09/04/21 Range/Units 17:36 05:10 05:50 APTT (22.0-30.0) sec Chloride 110 H (98-107) mmol/L BUN 40 H (9-20) mg/dL Creatinine 1.54 H (0.66-1.25) mg/dL Glucose 136 H (74-99) mg/dL POC Glucose (mg/dL) 146 H 152 H (75-99) mg/dL Total Protein 5.6 L (6.3-8.2) g/dL Albumin 2.9 L (3.5-5.0) g/dL 09/04/21 Range/Units 05:50 APTT 51.0 H (22.0-30.0) sec Chloride (98-107) mmol/L BUN (9-20) mg/dL Creatinine (0.66-1.25) mg/dL Glucose (74-99) mg/dL POC Glucose (mg/dL) (75-99) mg/dL Total Protein (6.3-8.2) g/dL Albumin (3.5-5.0) g/dL Assessment and Plan Assessment: 1. Acute kidney injury appears to be mostly prerenal. Continue with IV fluids. UA is completely benign. Ultrasound shows no major abnormalities. No obstruction noted. 2. Coronary artery disease with history of multiple coronary stents, admitted with chest pain being followed by cardiology 3. Type 2 diabetes maintained on metformin at home 4. CK D most likely stage III a. However previous labs not available for comparison. UA shows no evidence of proteinuria Plan: Continue to hold diuretics. Repeat labs in a.m. Continue with IV fluids. Avoid nephrotoxic agents. Patient will need follow-up as outpatient for CK D
[2021-09-04] MEDS ORDERED: IV FLUID CONTINUATION 1,000 ML IV ONE (12:15)
[2021-09-04] MEDS ORDERED: LIDOCAINE 1% INJ 10MG/ML (20 ML MDV) ONE (13:21)
[2021-09-04] MEDS ORDERED: fentaNYL (PF) 50 MCG/ML 2 ML AMP ONE (13:21)
[2021-09-04] MEDS ORDERED: VERAPAMIL 2.5 MG/ML 2 ML AMP ONE (13:21)
[2021-09-04] MEDS ORDERED: HEPARIN SODIUM 1,000 UN/ML (10ML VL) ONE (13:21)
[2021-09-04] MEDS ORDERED: fentaNYL (PF) 50 MCG/ML 2 ML AMP IV ONE (13:30)
[2021-09-04] MEDS ORDERED: MIDAZOLAM 2 MG/2 ML VIAL IV ONE (13:30)
[2021-09-04] MEDS ORDERED: LIDOCAINE 1% INJ 10MG/ML (20 ML MDV) SQ ONE (13:31)
[2021-09-04] MEDS ORDERED: VERAPAMIL SYRINGE (5 MG/10 ML) INTRAARTER ONE (13:35)
[2021-09-04] MEDS ORDERED: HEPARIN SODIUM 1,000 UN/ML (10ML VL) IV ONE (14:00)
[2021-09-04] MEDS ORDERED: IOPAMIDOL-370 125ML BTL INJ ONE (14:18)
[2021-09-04] MEDS ORDERED: ADENOSINE 90 MG in SODIUM CHLORIDE 0.9% 60 ML IVP ONE (14:19)
[2021-09-04] MEDS ORDERED: RX INFO: IV CONTRAST WAS GIVEN 1 EACH MISC MISCELLANE PRN (14:26)
[2021-09-04] MEDS ORDERED: SODIUM CHLORIDE 0.9% 1,000 ML IV SCH (14:30)
--- NOTE | 2021-09-04 14:39 | P.PCN ---
Date of Procedure: 09/04/21 Operative Findings: Fractional flow reserve of the right coronary artery Performing physician Ad Roberts M.D. Procedure Performed: 1. Fractional flow reserve of the right coronary artery was performed and came in to be nonischemic at 0.88 Indication: This is a 76-year-old gentleman was admitted to the hospital with chest discomfort and ruled in for acute coronary event. He underwent a heart catheterization by Dr. Wellington and that revealed intermediate lesion involving the mid right coronary artery. The decision was made toward fractional flow reserve (FFR) Approach: Right radial artery Complications: None Level of Sedation: Moderate with a sedation length of 20 minutes Procedure Discussion: Please refer to diagnosed sick heart catheterization was performed by Dr. Quintana earlier today. Anticoagulation was initiated and completed using heparin with continuous ACT monitoring. Subsequently and after zeroing the Doppler wire and equalizing between the Doppler wire and the guiding catheter I did insert the wire to the right coronary artery and then I did an FFR per her IV adenosine infusion and FFR came in to be 0.88. The procedure was completed without any complications Postprocedure Management: 1. Medical treatment 2. Follow-up with the patient
[2021-09-04 15:05] LABS: Glucose,Whole Blood 101 mg/dL (75-99)
[2021-09-04 16:46] LABS: Glucose,Whole Blood 96 mg/dL (75-99)
--- NOTE | 2021-09-04 18:37 | P.PN ---
Progress Note - Text Progress Note Date: 09/04/21 Chief Complaint: Chest pressure This is a pleasant 76-year-old patient, follows with Dr. Baker. Chronic stable medical conditions include atrial fibrillation, asthma, diabetes, hypertension, CAD with stent placed in November 2020. 2 days ago patient felt like a heaviness in the chest that started the evening and progressive the whole night. He started feeling like a burning sensation in the chest progressed to go to his throat. Winston like a elephants sitting. There was no dizziness or lightheadedness. Patient felt short of breath. No perspiration. Finding decided to come in. Worse with activity. Some relief with rest. No radiation to the throat. Admitted with unstable angina. IV heparin. September 03:. IV heparin. No chest pain. Cardiac catheterization held for now because of renal function. IV fluids. September 04: Patient today went cardiac catheterization by Dr. Quintana. Intermediate lesion involving the mid RCA. FFR came back at 0.88. Plan for medical management. Currently no chest pain or shortness of breath. Review of systems: Was done for constitutional, cardiovascular, GI, pulmonary. relevant finding as above Active Medications Acetaminophen (Acetaminophen Tab 325 Mg Tab) 650 mg PO Q6HR PRN PRN Reason: Mild Pain or Fever > 100.5 Albuterol Sulfate (Albuterol Hfa Inhaler) 2 puff INHALATION RT-QID [facility] Last Admin: 09/04/21 16:55 Dose: 2 puff Documented by: Albuterol Sulfate (Albuterol Hfa Inhaler) 2 puff INHALATION RT-Q4H PRN PRN Reason: Shortness Of Breath Allopurinol (Allopurinol 100 Mg Tab) 100 mg PO DAILY [facility] Last Admin: 09/04/21 09:29 Dose: 100 mg Documented by: Alprazolam (Alprazolam 0.25 Mg Tab) 0.25 mg PO Q6HR PRN PRN Reason: Mild Anxiety Alprazolam (Alprazolam 0.5 Mg Tab) 0.5 mg PO Q6HR PRN PRN Reason: Moderate Anxiety Aspirin (Aspirin 325 Mg Tab) 325 mg PO DAILY [facility] Atorvastatin Calcium (Atorvastatin 80 Mg Tab) 80 mg PO DAILY [facility] Brimonidine Tartrate (Brimonidine Tartrate 0.2% Drops 5 Ml Btl) 1 drops BOTH EYES BID [facility] Last Admin: 09/04/21 09:31 Dose: 1 drops Documented by: Buspirone HCl (Buspirone Hcl 10 Mg Tab) 10 mg PO BID [facility] Last Admin: 09/04/21 09:29 Dose: 10 mg Documented by: Calcium Carbonate/Glycine (Calcium Carbonate 500 Mg Chewable) 1,000 mg PO Q4HR PRN PRN Reason: Dyspepsia Citalopram Hydrobromide (Citalopram Hydrobromide 20 Mg Tab) 20 mg PO DAILY [facility] Last Admin: 09/04/21 09:30 Dose: 20 mg Documented by: Clopidogrel Bisulfate (Clopidogrel 75 Mg Tab) 75 mg PO DAILY [facility] Last Admin: 09/04/21 09:29 Dose: 75 mg Documented by: Fenofibrate (Fenofibrate 54 Mg Tab) 54 mg PO DAILY [facility] Last Admin: 09/04/21 09:29 Dose: 54 mg Documented by: Heparin Sodium/Sodium Chloride (25,000 unit/ Sodium Chloride) 250 mls @ 10 mls/hr IV .Q24H [facility]; Protocol Last Admin: 09/04/21 09:26 Dose: 9.254 units/kg/hr, 9.025 mls/hr Documented by: Sodium Chloride (Saline 0.9%) 1,000 mls @ 100 mls/hr IV .Q10H [facility] Last Admin: 09/04/21 17:45 Dose: Not Given Documented by: Heparin Sodium (Porcine) 10, (000 unit/ Sodium Chloride) 1,001 mls @ 999 mls/hr IRRIGATION ONCE PRN PRN Reason: INTRA-OP Stop: 09/04/21 23:00 Heparin Sodium (Porcine) 2,500 (unit/ Sodium Chloride) 250.5 mls @ 250 mls/hr IRRIGATION ONCE PRN PRN Reason: INTRA-OP Stop: 09/04/21 23:00 Sodium Chloride (Saline 0.9%) 1,000 mls @ 75 mls/hr IV .[id number] [facility] Stop: 09/04/21 19:31 Last Admin: 09/04/21 17:44 Dose: 75 mls/hr Documented by: Insulin Aspart (Insulin Aspart (Novolog) 100 Unit/Ml Vial) 0 unit SQ ACHS [facility]; Protocol Last Admin: 09/04/21 17:45 Dose: Not Given Documented by: Ipratropium [place] (Ipratropium 0.5 Mg/2.5 Ml Nebu) 0.5 mg INHALATION RT-QID PRN PRN Reason: Shortness Of Breath Or Wheezing Ipratropium [place] (Ipratropium 0.5 Mg/2.5 Ml Nebu) 0.5 mg INHALATION RT-QID [facility] Last Admin: 09/04/21 16:55 Dose: 0.5 mg Documented by: Lactulose (Lactulose 20 Gm/30 Ml Cup) 20 gm PO DAILY PRN PRN Reason: Constipation Latanoprost (Latanoprost 0.005% Ophth Drops 2.5 Ml Btl) 1 drops BOTH EYES HS [facility] Last Admin: 09/03/21 20:55 Dose: 1 drops Documented by: Magnesium Oxide (Magnesium Oxide 400 Mg Tab) 1,600 mg PO DAILY [facility] Last Admin: 09/04/21 09:30 Dose: 1,600 mg Documented by: Melatonin (Melatonin 3 Mg Tablet) 3 mg PO HS PRN PRN Reason: Insomnia Metoprolol Tartrate (Metoprolol Tartrate 25 Mg Tab) 25 mg PO BID [facility] Last Admin: 09/04/21 09:29 Dose: 25 mg Documented by: Miscellaneous Information (Rx Info: Iv Contrast Was Given 1 Each Misc) 1 each MISCELLANE DAILY PRN PRN Reason: Per Protocol Stop: 09/06/21 14:26 Morphine Sulfate (Morphine Sulfate 4 Mg/Ml Syringe) 4 mg IV Q4HR PRN PRN Reason: Chest Pain Naloxone HCl (Naloxone 0.4 Mg/Ml 1 Ml Vial) 0.2 mg IV Q2M PRN PRN Reason: Opioid Reversal Nitroglycerin (Nitroglycerin Oint 1 Inch/Gm Packet) 1 inch TOPICAL Q6HR [facility] Last Admin: 09/04/21 17:45 Dose: Not Given Documented by: Nitroglycerin (Nitroglycerin Sl Tabs 0.4 Mg Tab) 0.4 mg SUBLINGUAL Q5M PRN PRN Reason: Chest Pain Ondansetron HCl (Ondansetron 4 Mg/2 Ml Vial) 4 mg IVP Q8HR PRN PRN Reason: Nausea And Vomiting Pantoprazole Sodium (Pantoprazole 40 Mg Tablet) 40 mg PO DAILY@0730 [facility] Last Admin: 09/04/21 05:42 Dose: Not Given Documented by: Timolol Maleate (Timolol 0.5% Ophth Drops 5 Ml Btl) 1 drops BOTH EYES BID [facility] Last Admin: 09/04/21 09:31 Dose: 1 drops Documented by: Past medical history to include: Atrial fibrillation, asthma, CAD with stent in November 2020, diabetes, hy pertension, TIA/stroke, anxiety depression Social history: 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 . Denies any history of smoking or alcohol. Family history: Mother from Alzheimer's disease age of 58. Physical examination: VITAL SIGNS: 97.7, 55, 16, 115/72, 96% on 2 L GENERAL: laying in bed, awake, comfortable EYES: Pupils equal. Conjunctiva normal. HEENT: External appearance of nose and ears normal, oral cavity grossly normal. NECK: JVD not raised; masses not palpable. HEART: First and second heart sounds are normal; no edema. LUNGS: Respiratory rate normal; clear to auscultation. ABDOMEN: Soft, nontender, liver spleen not palpable, no masses palpable. PSYCH: Alert and oriented x3; mood and affect normal. MUSCULOSKELETAL:No Clubbing/cyanosis;muscles-grossly intact NEUROLOGICAL: Cranial nerves grossly intact; no facial asymmetry, power and sensation grossly intact. INVESTIGATIONS, reviewed in the clinical context: September 04: Potassium 4.4 BUN 40 creatinine 1.5 for. Cardiac catheterization: Intermediate lesion mid RCA. For medical management FFR 0.88 September 03: Potassium 4.1 BUN 45 creatinine 1.73 LDL 43 Renal ultrasound: Unremarkable White count 13.1 hemoglobin 13.1 platelets 216 sodium 139 potassium 4.726 creatinine 1.59 Troponin I 0.161, 0.203, 0.215 Lipase 209 Coronavirus [PCR]: Not detected EKG tracing personally reviewed by me-sinus rhythm, right bundle-branch block, ST segment depression in leads V2 through V5 Chest x-ray film personally reviewed by me-cardiomegaly. Some left pleural effusion 2-D echocardiogram: EF 45-50% moderate mitral regurgitation. Assessment and plan: -Acute non-Q wave myocardial infarction. Patient's symptoms are present for over 48 hours. IV heparin. Aspirin. Beta jairo. Nitropaste. -Cardiac catheterization showing a mid RCA lesion intermediate obstruction. FFR 0.88. Cardiology decision to manage medically. 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 Follow renal function. Follow nephrology -Intermittent asthma Albuterol HFA 2 puffs every 4 when necessary -Paroxysmal atrial fibrillation currently in sinus rhythm Hold eliquis. Patient on IV heparin -IV heparin monitoring Follow PTT -Hyperlipidemia Lipitor 80 mg a day -Anxiety depression Celexa 20 mg a day -GERD Omeprazole 20 mg a day -Essential hypertension Zestril 20 mg twice a day, Lopressor 25 mg twice a day -Obesity BMI 30.8 Weight loss measures Intermediate lesion in the RCA. As per FFR decision made by [facility] not for further intervention. IV fluids. Repeat renal function the morning. Increase activity when okay with cardiology. Discussed with patient. For medical management.
[2021-09-04 20:14] LABS: Glucose,Whole Blood 177 mg/dL (75-99)
[2021-09-04] MEDS: LATANOPROST 0.005% OPHTH DROPS 2.5 ML BTL BOTH EYES SCH (21:20)
[2021-09-05] MEDS: HEPARIN SOD,PORK IN 0.45% NACL 25,000 UNIT in 0.45% NACL 1 250ML.BAG IV SCH (03:02)
[2021-09-05 04:32] VITALS: RESP 18; TEMP 97.6
[2021-09-05 06:06] LABS: Glucose,Whole Blood 96 mg/dL (75-99)
[2021-09-05] MEDS: INSULIN ASPART (NovoLOG) 100 UNIT/ML VIAL SQ SCH (06:06)
[2021-09-05] MEDS: PANTOPRAZOLE 40 MG TABLET PO SCH (06:26)
[2021-09-05] MEDS: NITROGLYCERIN OINT 1 INCH/GM PACKET TOPICAL SCH (06:26)
[2021-09-05 07:54] LABS: Basophils % (A) 0 %; Eosinophils # (A) 0.2 k/uL (0-0.7); Eosinophils % (A) 2 %; HCT 41.2 % (39.0-53.0); HGB 12.3 gm/dL (13.0-17.5); Hypochromasia Marked; Lymphocytes # (A) 1.8 k/uL (1.0-4.8); Lymphocytes % (A) 24 %; MCH 30.1 pg (25.0-35.0); MCHC 29.9 g/dL (31.0-37.0); MCV 100.7 fL (80.0-100.0); Macrocytosis Slight; Mean Platelet Volume 7.9; Monocytes # (A) 0.3 k/uL (0-1.0); Monocytes % (A) 4 %; Neutrophils # (A) 5.1 k/uL (1.3-7.7); Neutrophils % (A) 68 %; Platelet Count 202 k/uL (150-450); RBC 4.09 m/uL (4.30-5.90); RDW 13.8 % (11.5-15.5); WBC 7.6 k/uL (3.8-10.6)
[2021-09-05 08:07] LABS: Calcium 9.4 mg/dL (8.4-10.2); Potassium 4.1 mmol/L (3.5-5.1)
[2021-09-05] MEDS: MAGNESIUM OXIDE 400 MG TAB PO SCH (08:14)
[2021-09-05] MEDS: CITALOPRAM HYDROBROMIDE 20 MG TAB PO SCH (08:14)
[2021-09-05] MEDS: allopurinoL 100 MG TAB PO SCH (08:14)
[2021-09-05] MEDS: BRIMONIDINE TARTRATE 0.2% DROPS 5 ML BTL BOTH EYES SCH (08:15)
[2021-09-05] MEDS: METOPROLOL TARTRATE 25 MG TAB PO SCH (08:15)
[2021-09-05] MEDS: CLOPIDOGREL 75 MG TAB PO SCH (08:15)
[2021-09-05] MEDS: FENOFIBRATE 54 MG TAB PO SCH (08:15)
[2021-09-05] MEDS: busPIRone HCl 10 MG TAB PO SCH (08:15)
[2021-09-05] MEDS: TIMOLOL 0.5% OPHTH DROPS 5 ML BTL BOTH EYES SCH (08:16)
[2021-09-05] MEDS ORDERED: ATORVASTATIN 80 MG TAB PO SCH (09:00)
[2021-09-05] MEDS ORDERED: ASPIRIN 325 MG TAB PO SCH ×2 (09:00)
[2021-09-05] MEDS ORDERED: APIXABAN 5 MG TAB PO SCH (09:00)
[2021-09-05] MEDS: IPRATROPIUM 0.5 MG/2.5 ML NEBU INHALATION SCH ×2 (09:05→12:37)
[2021-09-05] MEDS: ALBUTEROL HFA INHALER INHALATION SCH ×2 (09:05→12:38)
[2021-09-05 12:01] LABS: Glucose,Whole Blood 124 mg/dL (75-99)
--- NOTE | 2021-09-05 12:02 | P.PN ---
Subjective Progress Note Date: 09/05/21 HISTORY OF PRESENT ILLNESS: Patient is s/p cardiac cath with Dr. Wellington. Patient underwent fractional flow reserve with Dr. Roberts of the RCA which was found to be nonischemic. Patient e xamined this morning at the bedside. He denies chest pain or pressure. Denies SOB. Vital signs are stable. PHYSICAL EXAM: VITAL SIGNS: Reviewed. GENERAL: Well-developed in no acute distress. NECK: Supple. No JVD or thyromegaly LUNGS: Respirations even and unlabored. Lungs essentially clear to auscultation bilaterally. HEART: Regular rate and rhythm. S1 and S2 heard. EXTREMITIES: Normal range of motion. No clubbing or cyanosis. Peripheral pulses intact. No lower extremity edema ASSESSMENT: Non-STEMI Coronary artery disease with previous PCI History of DVT Chronic kidney disease PLAN: Discontinue aspirin Continue Plavix Resume Eliquis Continue additional cardiac medications Patient is currently stable from a cardiac standpoint Nurse practitioner note has been reviewed by physician. Signing provider agrees with the documented findings, assessment, and plan of care. Objective - Vital Signs Vital signs: Vital Signs Temp 97.6 F 09/05/21 08:19 Pulse 64 09/05/21 08:19 Resp 18 09/05/21 08:19 BP 149/75 09/05/21 08:19 Pulse Ox 95 09/05/21 08:19 Intake & Output 09/04/21 09/05/21 09/05/21 18:59 06:59 18:59 Intake Total 577.736 180 Output Total 0 Balance 577.736 180 Weight 101.9 kg Intake: IV 210 Intake, IV Titration 247.736 Amount Heparin Sod,Pork in 0.45% 247.736 NaCl 25,000 unit In 0.45 % NaCl 1 250ml.bag @ 10. 254 UNITS/KG/HR 10 mls/hr IV .Q24H [facility] Rx#: [id number] Oral 120 180 Output: Urine 0 Other: Voiding Method Toilet Toilet Toilet Urinal Urinal Urinal # Voids 2 - Labs CBC & Chem 7: 09/05/21 07:10 09/05/21 07:10 Labs: Abnormal Lab Results - Last 24 Hours (Table) 09/04/21 09/04/21 09/05/21 Range/Units 15:04 20:12 07:10 RBC 4.09 L (4.30-5.90) m/uL Hgb 12.3 L (13.0-17.5) gm/dL MCV 100.7 H (80.0-100.0) fL MCHC 29.9 L (31.0-37.0) g/dL Chloride (98-107) mmol/L BUN (9-20) mg/dL Creatinine (0.66-1.25) mg/dL POC Glucose (mg/dL) 101 H 177 H (75-99) mg/dL 09/05/21 Range/Units 07:10 RBC (4.30-5.90) m/uL Hgb (13.0-17.5) gm/dL MCV (80.0-100.0) fL MCHC (31.0-37.0) g/dL Chloride 110 H (98-107) mmol/L BUN 28 H (9-20) mg/dL Creatinine 1.42 H (0.66-1.25) mg/dL POC Glucose (mg/dL) (75-99) mg/dL
[2021-09-05 12:24] VITALS: BP 158/87; PULSE 59
--- NOTE | 2021-09-05 17:56 | P.PN ---
Subjective Principal diagnosis: Patient is seen for follow-up for acute kidney injury. Serum creatinine was 1.59 on admission and increased to 1.73 yesterday. Today it is down to 1.5 again. Patient has had good urine output. Blood pressure had been low with systolic around 10 8 mmHg for lowest. Patient was maintained on RADHA inhibitor as prior to admission this is currently on hold. Patient was admitted with chest pain. Currently he is maintained on IV fluids , doing well ,for possible discharge today Objective - Vital Signs Vital signs: Vital Signs Temp 97.6 F 09/05/21 08:19 Pulse 59 L 09/05/21 12:00 Resp 18 09/05/21 12:00 BP 158/87 09/05/21 12:00 Pulse Ox 97 09/05/21 12:00 Intake & Output 09/04/21 09/05/21 09/05/21 18:59 06:59 18:59 Intake Total 577.736 180 Output Total 0 Balance 577.736 180 Weight 101.9 kg Intake: IV 210 Intake, IV Titration 247.736 Amount Heparin Sod,Pork in 0.45% 247.736 NaCl 25,000 unit In 0.45 % NaCl 1 250ml.bag @ 10. 254 UNITS/KG/HR 10 mls/hr IV .Q24H [facility] Rx#: [id number] Oral 120 180 Output: Urine 0 Other: Voiding Method Toilet Toilet Toilet Urinal Urinal Urinal # Voids 2 - Exam On examination patient is comfortable awake alert oriented 3 not in any acute distress. Examination of the heart S1 and S2 Examination lungs bilateral breath sounds are heard Examination of the abdomen reveals it to be soft nontender Examination of lower extremity shows trace edema bilaterally [employer]OR OF PHYSICAL THER[employer] exam is grossly intact - Labs CBC & Chem 7: 09/05/21 07:10 09/05/21 07:10 Labs: Abnormal Lab Results - Last 24 Hours (Table) 09/04/21 09/05/21 09/05/21 Range/Units 20:12 07:10 07:10 RBC 4.09 L (4.30-5.90) m/uL Hgb 12.3 L (13.0-17.5) gm/dL MCV 100.7 H (80.0-100.0) fL MCHC 29.9 L (31.0-37.0) g/dL Chloride 110 H (98-107) mmol/L BUN 28 H (9-20) mg/dL Creatinine 1.42 H (0.66-1.25) mg/dL POC Glucose (mg/dL) 177 H (75-99) mg/dL 09/05/21 Range/Units 12:00 RBC (4.30-5.90) m/uL Hgb (13.0-17.5) gm/dL MCV (80.0-100.0) fL MCHC (31.0-37.0) g/dL Chloride (98-107) mmol/L BUN (9-20) mg/dL Creatinine (0.66-1.25) mg/dL POC Glucose (mg/dL) 124 H (75-99) mg/dL Assessment and Plan Assessment: 1. Acute kidney injury appears to be mostly prerenal. Continue with IV fluids. UA is completely benign. Ultrasound shows no major abnormalities. No obstruct ion noted. 2. Coronary artery disease with history of multiple coronary stents, admitted with chest pain being followed by cardiology 3. Type 2 diabetes maintained on metformin at home 4. CK D most likely stage III a. However previous labs not available for comparison. UA shows no evidence of proteinuria Plan: Continue to hold diuretics. Avoid nephrotoxic agents. Patient will need follow-up as outpatient for CK D
--- NOTE | 2021-09-05 18:56 | P.DS ---
Providers Date of admission: 09/02/21 01:58 Expected date of discharge: 09/05/21 Attending physician: Vidal Dominguez Consults: 09/02/21 01:58 Consult Physician Urgent Consulting Provider: Reilly Ochoa Consult Reason/Comments: NSTEMI Do you want consulting provider notified?: Yes 09/02/21 19:06 Consult Physician Routine Consulting Provider: Fred De La Vega Consult Reason/Comments: CK D. Possible cardiac catheterization Do you want consulting provider notified?: Yes Primary care physician: [facility] Course: Chief Complaint: Chest pressure This is a pleasant 76-year-old patient, follows with Dr. Baker. Chronic stable medical conditions include atrial fibrillation, asthma, diabetes, hypertension, CAD with stent placed in November 2020. 2 days ago patient felt like a heaviness in the chest that started the evening and progressive the whole night. He started feeling like a burning sensation in the chest progressed to go to his throat. Horace like a elephants sitting. There was no dizziness or lightheadedness. Patient felt short of breath. No perspiration. Finding decided to come in. Worse with activity. Some relief with rest. No radiation to the throat. Admitted with unstable angina. IV heparin. cardiac catheterization by Dr. Quintana. Intermediate lesion involving the mid RCA. FFR came back at 0.88. Plan for medical management. September 05. Up and about. No cardiac symptoms. Cleared by cardiology.Imdur 15 mg daily-added. Discussed with patient. Patient will follow-up with cardiology and nephrology. . Consultation: Dr. 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 . Denies any history of smoking or alcohol. Family history: Mother from Alzheimer's disease age of 58. Physical examination: VITAL SIGNS: 97.6, 64, 18, 149/75, 95% room air GENERAL: Sitting up, comfortable EYES: Pupils equal. Conjunctiva normal. HEENT: External appearance of nose and ears normal, oral cavity grossly normal. NECK: JVD not raised; masses not palpable. HEART: First and second heart sounds are normal; no edema. LUNGS: Respiratory rate normal; clear to auscultation. ABDOMEN: Soft, nontender, liver spleen not palpable, no masses palpable. PSYCH: Alert and oriented x3; mood and affect normal. INVESTIGATIONS, reviewed in the clinical context: September 05: White count 7.6 platelets 202 potassium 4.1 BUN 28 creatinine 1.4 to September 04: Potassium 4.4 BUN 40 creatinine 1.5 for. Cardiac catheterization: Intermediate lesion mid RCA. For medical management FFR 0.88 September 03: Potassium 4.1 BUN 45 creatinine 1.73 LDL 43 Renal ultrasound: Unremarkable White count 13.1 hemoglobin 13.1 platelets 216 sodium 139 potassium 4.726 creatinine 1.59 Troponin I 0.161, 0.203, 0.215 Lipase 209 Coronavirus [PCR]: Not detected EKG tracing personally reviewed by me-sinus rhythm, right bundle-branch block, ST segment depression in leads V2 through V5 Chest x-ray film personally reviewed by me-cardiomegaly. Some left pleural effusion 2-D echocardiogram: EF 45-50% moderate mitral regurgitation. Assessment and plan: -Acute non-Q wave myocardial infarction. IV heparin. Aspirin. Beta jairo. Nitropaste. -Cardiac catheterization showing a mid RCA lesion intermediate obstruction. FFR 0.88. Cardiology decision to manage medically. -CAD with a prior history of stent in November 2020 -Chronic kidney disease stage III from diabetic nephropathy and hypertensive nephrosclerosis Follow nephrology -Intermittent asthma Albuterol HFA 2 puffs every 4 when necessary -Moderate mitral regurgitation Follow clinically -Paroxysmal atrial fibrillation currently in sinus rhythm Resume eliquis -IV heparin monitoring: Discontinued Follow PTT -Hyperlipidemia Lipitor 80 mg a day -Anxiety depression Celexa 20 mg a day -GERD Omeprazole 20 mg a day -Essential hypertension Zestril 20 mg a day, Lopressor 25 mg twice a day -Obesity BMI 30.8 Weight loss measures Disposition: Home Plan - Discharge Summary New Discharge Prescriptions: New Isosorbide Mononitrate ER [Imdur] 15 mg PO DAILY #30 tab Metoprolol Tartrate [Lopressor] 25 mg PO BID #60 tab Nitroglycerin Sl Tabs [Nitrostat] 0.4 mg SUBLINGUAL Q5M PRN #30 tab PRN Reason: Chest Pain Continue Multivitamins, Thera [Multivitamin (formulary)] 1 tab PO DAILY Magnesium Oxide [Mag-Ox] 1,600 mg PO DAILY Allopurinol [Zyloprim] 100 mg PO DAILY metFORMIN HCL ER [Glucophage XR] 500 mg PO DAILY Bimatoprost [Lumigan .01% Ophth Soln] 1 drop BOTH EYES HS Fenofibrate,Micronized [Fenofibrate] 67 mg PO DAILY Brimonidine Tartrate/Timolol [Combigan 0.2%-0.5% Eye Drops] 1 drop BOTH EYES BID Apixaban [Eliquis] 5 mg PO BID busPIRone HCL 10 mg PO BID Clopidogrel [Plavix] 75 mg PO DAILY Citalopram Hydrobromide [CeleXA] 20 mg PO DAILY Atorvastatin [Lipitor] 80 mg PO DAILY Albuterol Sulfate [Albuterol Sulfate Hfa] 2 puff INHALATION RT-Q4H PRN PRN Reason: Shortness Of Breath Omeprazole 20 mg PO DAILY Changed lisinopriL [Zestril] 20 mg PO HS #0 Discontinued Atenolol/Chlorthalidone [Atenolol/Chlorthalidone 50-25] 1 tab PO DAILY Discharge Medication List Albuterol Sulfate [Albuterol Sulfate Hfa] 2 puff INHALATION RT-Q4H PRN 09/02/21 [History] Allopurinol [Zyloprim] 100 mg PO DAILY 09/02/21 [History] Apixaban [Eliquis] 5 mg PO BID 09/02/21 [History] Atorvastatin [Lipitor] 80 mg PO DAILY 09/02/21 [History] Bimatoprost [Lumigan .01% Ophth Soln] 1 drop BOTH EYES HS 09/02/21 [History] Brimonidine Tartrate/Timolol [Combigan 0.2%-0.5% Eye Drops] 1 drop BOTH EYES BID 09/02/21 [History] Citalopram Hydrobromide [CeleXA] 20 mg PO DAILY 09/02/21 [History] Clopidogrel [Plavix] 75 mg PO DAILY 09/02/21 [History] Fenofibrate,Micronized [Fenofibrate] 67 mg PO DAILY 09/02/21 [History] Magnesium Oxide [Mag-Ox] 1,600 mg PO DAILY 09/02/21 [History] Multivitamins, Thera [Multivitamin (formulary)] 1 tab PO DAILY 09/02/21 [History] Omeprazole 20 mg PO DAILY 09/02/21 [History] busPIRone HCL 10 mg PO BID 09/02/21 [History] metFORMIN HCL ER [Glucophage XR] 500 mg PO DAILY 09/02/21 [History] Isosorbide Mononitrate ER [Imdur] 15 mg PO DAILY #30 tab 09/05/21 [Rx] Metoprolol Tartrate [Lopressor] 25 mg PO BID #60 tab 09/05/21 [Rx] Nitroglycerin Sl Tabs [Nitrostat] 0.4 mg SUBLINGUAL Q5M PRN #30 tab 09/05/21 [Rx] lisinopriL [Zestril] 20 mg PO HS #0 09/05/21 [Rx] Follow up Appointment(s)/Referral(s): Fernando Baker MD [Primary Care Provider] - 09/06/21 5:15 pm Andrey Wellington MD [STAFF PHYSICIAN] - 1 Week (Office staff will call you to make this appointment in the [place] office) Patient Instructions/Handouts: Heart Attack (DC) Discharge Disposition: HOME SELF-CARE
== END 2021-09-05 14:30 | disposition home or self-care (01) | DRG 281 ==
LOC: EC 23:45 → 3SCARD 09-02 01:58
PROVIDERS: ADMIT Hospitalist; ATTEND Hospitalist
PROC: B2111ZZ Fluoroscopy of Multiple Coronary Arteries using Low Osmolar Contrast (ICD-10-PCS; 2021-09-04)
PROC: 4A033BC Measurement of Arterial Pressure, Coronary, Percutaneous Approach (ICD-10-PCS; principal; 2021-09-04 18:15)
PROC: 4A023N7 Measurement of Cardiac Sampling and Pressure, Left Heart, Percutaneous Approach (ICD-10-PCS; 2021-09-04 18:15)
DX: I21.4 Non-ST elevation (NSTEMI) myocardial infarction (principal); N17.9 Acute kidney failure, unspecified; N18.30 Chronic kidney disease, stage 3 unspecified; E11.22 Type 2 diabetes mellitus with diabetic chronic kidney disease; E66.9 Obesity, unspecified; Z68.30 Body mass index [BMI] 30.0-30.9, adult; E78.5 Hyperlipidemia, unspecified; F41.8 Other specified anxiety disorders; G62.9 Polyneuropathy, unspecified; I12.9 Hypertensive chronic kidney disease with stage 1 through stage 4 chronic kidney disease, or unspecified chronic kidney disease; I25.110 Atherosclerotic heart disease of native coronary artery with unstable angina pectoris; I25.2 Old myocardial infarction; I34.0 Nonrheumatic mitral (valve) insufficiency; I48.0 Paroxysmal atrial fibrillation; J45.20 Mild intermittent asthma, uncomplicated; K21.9 Gastro-esophageal reflux disease without esophagitis; Z79.01 Long term (current) use of anticoagulants; Z79.02 Long term (current) use of antithrombotics/antiplatelets; Z79.84 Long term (current) use of oral hypoglycemic drugs; Z79.899 Other long term (current) drug therapy; Z80.1 Family history of malignant neoplasm of trachea, bronchus and lung; Z20.822 Contact with and (suspected) exposure to COVID-19; Z82.0 Family history of epilepsy and other diseases of the nervous system; Z82.3 Family history of stroke; Z82.49 Family history of ischemic heart disease and other diseases of the circulatory system; Z83.3 Family history of diabetes mellitus; Z86.718 Personal history of other venous thrombosis and embolism; Z86.73 Personal history of transient ischemic attack (TIA), and cerebral infarction without residual deficits; Z95.5 Presence of coronary angioplasty implant and graft
CPT/HCPCS: 36415; 71046; 76770; 80048; 80053; 80061; 81003; 82043; 82570; 83690; 83735; 83880; 84484; 85025; 85379; 85610; 85730; 87635; 93005; 93306; 93458; 93571; 94640; 96365; 96366; 99285

== ENCOUNTER 2021-10-02 10:59 | Observation (INO) | payer MEDICARE ==
--- NOTE | 2021-10-02 11:59 | XR ---
EXAMINATION TYPE: XR chest 2V DATE OF EXAM: 10/02/2021 COMPARISON: 09/02/2021 TECHNIQUE: PA and lateral views submitted. HISTORY: Shortness of breath FINDINGS: Atherosclerotic change aorta. Arthropathy of the shoulders. There is left lower lobe infiltrate and s mall effusion. No overt failure or pneumothorax. Hypertrophic and degenerative change of the spine. IMPRESSION: 1. Left lower lobe infiltrate and small effusion stable.
[2021-10-02 12:25] LABS: INR 1.1 (<1.2); Partial Thromboplastin Time 24.7 sec (22.0-30.0); Prothrombin Time 11.9 sec (9.0-12.0)
[2021-10-02 12:32] LABS: Albumin 3.8 g/dL (3.5-5.0); Basophils % (A) 0 %; Calcium 9.8 mg/dL (8.4-10.2); Eosinophils # (A) 0.3 k/uL (0-0.7); Eosinophils % (A) 3 %; HCT 43.8 % (39.0-53.0); HGB 13.9 gm/dL (13.0-17.5); Lymphocytes # (A) 2.1 k/uL (1.0-4.8); Lymphocytes % (A) 21 %; MCH 29.9 pg (25.0-35.0); MCHC 31.7 g/dL (31.0-37.0); MCV 94.2 fL (80.0-100.0); Magnesium 1.2 mg/dL (1.6-2.3); Mean Platelet Volume 7.7; Monocytes # (A) 0.4 k/uL (0-1.0); Monocytes % (A) 4 %; Neutrophils # (A) 6.7 k/uL (1.3-7.7); Neutrophils % (A) 70 %; Platelet Count 266 k/uL (150-450); Potassium 4.3 mmol/L (3.5-5.1); RBC 4.65 m/uL (4.30-5.90); RDW 13.7 % (11.5-15.5); Total Bilirubin 0.8 mg/dL (0.2-1.3); Total Protein 6.8 g/dL (6.3-8.2); WBC 9.6 k/uL (3.8-10.6)
[2021-10-02] MEDS ORDERED: NITROGLYCERIN SL TABS 0.4 MG TAB SUBLINGUAL PRN ×2 (13:53→18:10)
--- NOTE | 2021-10-02 13:53 | ED ---
Arrhythmia/Palpitations HPI - General Chief Complaint: Arrhythmia/Palpitations Stated Complaint: Afib, Chest Pain, DR referral Time Seen by Provider: 10/02/21 11:22 Source: patient, RN notes reviewed Mode of arrival: ambulatory Limitations: no limitations - History of Present Illness Initial Comments: 76-year-old male presents emergency Department chief complaint chest pain, states he was last month and states that he had a heart attack. Patient states started having worsening chest pain, increasing shortness breath and problems with his A. fib. Patient states that his A. fib as worsening symptoms and palpitations. Patient states he does not feel well. Patient did follow-up with cardiology. Patient is currently anticoagulated. - Related Data Home Medications Medication Instructions Recorded Confirmed Albuterol Sulfate [Albuterol 2 puff INHALATION RT-Q4H PRN 09/02/21 09/02/21 Sulfate Hfa] Allopurinol [Zyloprim] 100 mg PO DAILY 09/02/21 09/02/21 Apixaban [Eliquis] 5 mg PO BID 09/02/21 09/02/21 Atorvastatin [Lipitor] 80 mg PO DAILY 09/02/21 09/02/21 Bimatoprost [Lumigan .01% Ophth 1 drop BOTH EYES HS 09/02/21 09/02/21 Soln] Brimonidine Tartrate/Timolol 1 drop BOTH EYES BID 09/02/21 09/02/21 [Combigan 0.2%-0.5% Eye Drops] Citalopram Hydrobromide [CeleXA] 20 mg PO DAILY 09/02/21 09/02/21 Clopidogrel [Plavix] 75 mg PO DAILY 09/02/21 09/02/21 Fenofibrate,Micronized 67 mg PO DAILY 09/02/21 09/02/21 Magnesium Oxide [Mag-Ox] 1,600 mg PO DAILY 09/02/21 09/02/21 Multivitamins, Thera [Multivitamin 1 tab PO DAILY 09/02/21 09/02/21 (formulary)] Omeprazole 20 mg PO DAILY 09/02/21 09/02/21 busPIRone HCL 10 mg PO BID 09/02/21 09/02/21 metFORMIN HCL ER [Glucophage XR] 500 mg PO DAILY 09/02/21 09/02/21 Previous Rx's Medication Instructions Recorded Isosorbide Mononitrate ER [Imdur] 15 mg PO DAILY #30 tab 09/05/21 Metoprolol Tartrate [Lopressor] 25 mg PO BID #60 tab 09/05/21 Nitroglycerin Sl Tabs [Nitrostat] 0.4 mg SUBLINGUAL Q5M PRN #30 tab 09/05/21 lisinopriL [Zestril] 20 mg PO HS #0 09/05/21 Allergies Allergy/AdvReac Type Severity Reaction Status Date / Time No Known Allergies Allergy Verified 10/02/21 11:06 Review of Systems ROS Statement: Those systems with pertinent positive or pertinent negative responses have been documented in the HPI. ROS Other: All systems not noted in ROS Statement are negative. Past Medical History Past Medical History: Atrial Fibrillation, Asthma, Coronary Artery Disease (CAD), CVA/TIA, Diabetes Mellitus, Hypertension Additional Past Medical History / Comment(s): type 2 diabetes controlled History of Any Multi-Drug Resistant Organisms: None Reported Past Surgical History: Heart Catheterization With Stent, Orthopedic Surgery Additional Past Surgical History / Comment(s): stent placed november 2020 Past Anesthesia/Blood Transfusion Reactions: No Reported Reaction Date of Last Stent Placement:: 11/2020 Past Psychological History: Anxiety, Depression Smoking Status: Never smoker Past Alcohol Use History: Occasional Past Drug Use History: None Reported - Past Family History Mother Family Medical History: Dementia Additional Family Medical History / Comment(s): mother at 58 years old of alzhimar disease Brother(s) Family Medical History: CVA/TIA, Dementia Father Family Medical History: Diabetes Mellitus Additional Family Medical History / Comment(s): of old age at 92 years old Sister(s) Family Medical History: Cancer, Coronary Artery Disease (CAD) Additional Family Medical History / Comment(s): Sister of lung cancer General Exam Limitations: no limitations General appearance: alert, in no apparent distress Head exam: Present: atraumatic, normocephalic, normal inspection Neck exam: Present: normal inspection, full ROM. Absent: tenderness, meningismus, lymphadenopathy Respiratory exam: Present: normal lung sounds bilaterally. Absent: respiratory distress, wheezes, rales, rhonchi, stridor Cardiovascular Exam: Present: tachycardia, irregular rhythm, normal heart sounds. Absent: regular rate, normal rhythm, systolic murmur, diastolic murmur, rubs, gallop, clicks GI/Abdominal exam: Present: soft, normal bowel sounds. Absent: distended, tenderness, guarding, rebound, rigid Course Vital Signs 10/02/21 10/02/21 11:02 11:36 Temperature 98.5 F Pulse Rate 87 Pulse Rate [ 78 Chemical Librarian ] Respiratory 22 Rate Blood Pressure 163/99 O2 Sat by Pulse 96 Oximetry Medical Decision Making - Medical Decision Making Patient's been having persistent issues with his A. fib, worsening chest pain. Patient's cardiac enzymes are elevated 0.1. Patient will be admitted with from radiology evaluation. - Lab Data Result diagrams: 10/02/21 11:10 10/02/21 11:10 Lab Results 10/02/21 10/02/21 10/02/21 Range/Units 11:10 11:10 11:10 WBC 9.6 (3.8-10.6) k/uL RBC 4.65 (4.30-5.90) m/uL Hgb 13.9 (13.0-17.5) gm/dL Hct 43.8 (39.0-53.0) % MCV 94.2 D (80.0-100.0) fL MCH 29.9 (25.0-35.0) pg MCHC 31.7 (31.0-37.0) g/dL RDW 13.7 (11.5-15.5) % Plt Count 266 (150-450) k/uL MPV 7.7 Neutrophils % 70 % Lymphocytes % 21 % Monocytes % 4 % Eosinophils % 3 % Basophils % 0 % Neutrophils # 6.7 (1.3-7.7) k/uL Lymphocytes # 2.1 (1.0-4.8) k/uL Monocytes # 0.4 (0-1.0) k/uL Eosinophils # 0.3 (0-0.7) k/uL Basophils # 0.0 (0-0.2) k/uL PT 11.9 (9.0-12.0) sec INR 1.1 (<1.2) APTT 24.7 (22.0-30.0) sec Sodium 139 (137-145) mmol/L Potassium 4.3 (3.5-5.1) mmol/L Chloride 108 H (98-107) mmol/L Carbon Dioxide 24 (22-30) mmol/L Anion Gap 7 mmol/L BUN 32 H (9-20) mg/dL Creatinine 1.59 H (0.66-1.25) mg/dL Est GFR (CKD-EPI)AfAm 49 (>60 ml/min/1.73 sqM) Est GFR (CKD-EPI)NonAf 42 (>60 ml/min/1.73 sqM) Glucose 169 H (74-99) mg/dL Calcium 9.8 (8.4-10.2) mg/dL Magnesium 1.2 L (1.6-2.3) mg/dL Total Bilirubin 0.8 (0.2-1.3) mg/dL AST 30 (17-59) U/L ALT 18 (4-49) U/L Alkaline Phosphatase 82 (38-126) U/L Troponin I (0.000-0.034) ng/mL NT-Pro-B Natriuret Pep pg/mL Total Protein 6.8 (6.3-8.2) g/dL Albumin 3.8 (3.5-5.0) g/dL 10/02/21 10/02/21 Range/Units 11:10 11:10 WBC (3.8-10.6) k/uL RBC (4.30-5.90) m/uL Hgb (13.0-17.5) gm/dL Hct (39.0-53.0) % MCV (80.0-100.0) fL MCH (25.0-35.0) pg MCHC (31.0-37.0) g/dL RDW (11.5-15.5) % Plt Count (150-450) k/uL MPV Neutrophils % % Lymphocytes % % Monocytes % % Eosinophils % % Basophils % % Neutrophils # (1.3-7.7) k/uL Lymphocytes # (1.0-4.8) k/uL Monocytes # (0-1.0) k/uL Eosinophils # (0-0.7) k/uL Basophils # (0-0.2) k/uL PT (9.0-12.0) sec INR (<1.2) APTT (22.0-30.0) sec Sodium (137-145) mmol/L Potassium (3.5-5.1) mmol/L Chloride (98-107) mmol/L Carbon Dioxide (22-30) mmol/L Anion Gap mmol/L BUN (9-20) mg/dL Creatinine (0.66-1.25) mg/dL Est GFR (CKD-EPI)AfAm (>60 ml/min/1.73 sqM) Est GFR (CKD-EPI)NonAf (>60 ml/min/1.73 sqM) Glucose (74-99) mg/dL Calcium (8.4-10.2) mg/dL Magnesium (1.6-2.3) mg/dL Total Bilirubin (0.2-1.3) mg/dL AST (17-59) U/L ALT (4-49) U/L Alkaline Phosphatase (38-126) U/L Troponin I 0.110 H* (0.000-0.034) ng/mL NT-Pro-B Natriuret Pep 4700 pg/mL Total Protein (6.3-8.2) g/dL Albumin (3.5-5.0) g/dL Disposition Clinical Impression: Chest pain, Atrial fibrillation Disposition: ADMITTED IP TO THIS HOSP Condition: Fair Referrals: Fernando Baker MD [Primary Care Provider] - 1-2 days
--- NOTE | 2021-10-02 18:40 | HP ---
HISTORY AND PHYSICAL DATE OF SERVICE: 10/02/2021 CHIEF COMPLAINTS: Chest pain and palpitations. HISTORY OF PRESENT ILLNESS: This 76-year-old gentleman with a past medical history atrial fibrillation, history of myocardial infarction and history of stents about 2 years ago was having chest pain in the anterior part of the chest and severe palpitations. Patient came to [facility]. Troponin was found to be 0.110 and he was in atrial fibrillation. The patient was admitted for further evaluation and treatment. There is no history of any fever, rigors or chills. No history of headache, loss of consciousness, seizures at this time. COVID-19 is negative. PAST MEDICAL HISTORY: Atrial fibrillation, myocardial infarction, stents. MEDICATIONS: Home medications are reviewed and include Glucophage, Zestril, Nitrostat. Doses and other medications are reviewed. ALLERGIES: NONE. FAMILY HISTORY: History of dementia. SOCIAL HISTORY: No history of smoking. Occasional alcohol intake. REVIEW OF SYSTEMS: Fourteen-point review of systems negative except as mentioned above. PHYSICAL EXAMINATION: Pulse is 97, blood pressure 150/105, respiration 18. NECK: No jugular venous distention. CARDIOVASCULAR: S1, S2 muffled. RESPIRATION: Breath sounds diminished at the bases. A few scattered rhonchi. No crackles. ABDOMEN: Soft, nontender. LEGS: No edema. No swelling. NERVOUS SYSTEM: Higher functions as mentioned earlier. No focal deficit. LYMPHATICS: No lymph node palpable in neck, axillae or groin. SKIN: No ulcer, rash, bleeding. JOINTS: No active deforming arthropathy. LABS: CBC within normal limits. Creatinine 1.59. Troponin noted. ASSESSMENT: 1. Chest pain; possible acute [id number]-elevation myocardial infarction. Troponin 0.110. 2. Atrial fibrillation with fast ventricular rate. 3. Elevated creatinine, chronic kidney disease, stage 3. 4. Hypomagnesemia. 5. History of myocardial infarction and stents. RECOMMENDATIONS AND DISCUSSION: In this 76-year-old gentleman who presented with multiple complex medical issues, we will monitor the patient closely, continue the current medications, continue with symptomatic treatment. Resume the home medications. Cardiology consultation. Possible cardiac catheterization. Otherwise, we will continue to monitor. Monitor blood sugars closely. See orders for further details. MMODL / IJN: [id number] /
[2021-10-02 20:51] LABS: Glucose,Whole Blood 152 mg/dL (75-99)
[2021-10-02] MEDS: INSULIN ASPART (NovoLOG) 100 UNIT/ML VIAL SQ SCH (20:51)
[2021-10-02] MEDS: lisinopriL 20 MG TAB PO SCH (22:15)
[2021-10-02] MEDS: METOPROLOL TARTRATE 25 MG TAB PO SCH (22:16)
[2021-10-02] MEDS: APIXABAN 5 MG TAB PO SCH (22:16)
[2021-10-02] MEDS: busPIRone HCl 10 MG TAB PO SCH (22:16)
[2021-10-02] MEDS: TIMOLOL 0.5% OPHTH DROPS 5 ML BTL BOTH EYES SCH (22:18)
[2021-10-02] MEDS: BRIMONIDINE TARTRATE 0.2% DROPS 5 ML BTL BOTH EYES SCH (22:18)
[2021-10-02] MEDS: LATANOPROST 0.005% OPHTH DROPS 2.5 ML BTL BOTH EYES SCH (22:18)
[2021-10-03 06:20] LABS: Glucose,Whole Blood 107 mg/dL (75-99)
[2021-10-03] MEDS: INSULIN ASPART (NovoLOG) 100 UNIT/ML VIAL SQ SCH ×4 (06:28→20:22)
[2021-10-03] MEDS: PANTOPRAZOLE 40 MG TABLET PO SCH (06:28)
[2021-10-03] MEDS ORDERED: metFORMIN 500 MG TAB PO SCH (07:30)
[2021-10-03 08:10] LABS: Basophils # (A) 0.1 k/uL (0-0.2); Basophils % (A) 1 %; Eosinophils # (A) 0.3 k/uL (0-0.7); Eosinophils % (A) 3 %; HCT 42.3 % (39.0-53.0); HGB 13.6 gm/dL (13.0-17.5); Hypochromasia Slight; Lymphocytes # (A) 2.2 k/uL (1.0-4.8); Lymphocytes % (A) 24 %; MCH 30.6 pg (25.0-35.0); MCHC 32.1 g/dL (31.0-37.0); MCV 95.4 fL (80.0-100.0); Mean Platelet Volume 7.8; Monocytes # (A) 0.5 k/uL (0-1.0); Monocytes % (A) 5 %; Neutrophils # (A) 5.9 k/uL (1.3-7.7); Neutrophils % (A) 66 %; Platelet Count 230 k/uL (150-450); RBC 4.44 m/uL (4.30-5.90); RDW 13.2 % (11.5-15.5)
[2021-10-03 08:16] LABS: African American GFR (CKD) 53 (>60 ml/min/1.73 sqM); Anion Gap 6 mmol/L; Blood Urea Nitrogen 27 mg/dL (9-20); Calcium 9.5 mg/dL (8.4-10.2); Carbon Dioxide 28 mmol/L (22-30); Chloride 106 mmol/L (98-107); Glucose 104 mg/dL (74-99); Non-African American GFR(CKD) 46 (>60 ml/min/1.73 sqM); Potassium 4.3 mmol/L (3.5-5.1); Sodium 140 mmol/L (137-145)
[2021-10-03] MEDS: MULTIVITAMINS, THERA 1 EACH TAB PO SCH (08:52)
[2021-10-03] MEDS: MAGNESIUM OXIDE 400 MG TAB PO SCH (08:52)
[2021-10-03] MEDS: busPIRone HCl 10 MG TAB PO SCH ×2 (08:52→20:26)
[2021-10-03] MEDS: FENOFIBRATE 54 MG TAB PO SCH (08:52)
[2021-10-03] MEDS: CLOPIDOGREL 75 MG TAB PO SCH (08:52)
[2021-10-03] MEDS: ISOSORBIDE MONONITRATE ER 15 MG TAB PO SCH (08:52)
[2021-10-03] MEDS: TIMOLOL 0.5% OPHTH DROPS 5 ML BTL BOTH EYES SCH ×2 (08:53→20:28)
[2021-10-03] MEDS: allopurinoL 100 MG TAB PO SCH (08:53)
[2021-10-03] MEDS: ATORVASTATIN 80 MG TAB PO SCH (08:53)
[2021-10-03] MEDS: CITALOPRAM HYDROBROMIDE 20 MG TAB PO SCH (08:53)
[2021-10-03] MEDS: APIXABAN 5 MG TAB PO SCH ×2 (08:53→20:26)
[2021-10-03] MEDS: METOPROLOL TARTRATE 25 MG TAB PO SCH (08:53)
[2021-10-03] MEDS: BRIMONIDINE TARTRATE 0.2% DROPS 5 ML BTL BOTH EYES SCH ×2 (08:53→20:28)
[2021-10-03] MEDS ORDERED: ASPIRIN 325 MG TAB PO SCH (09:00)
[2021-10-03] MEDS ORDERED: METOPROLOL TARTRATE 25 MG TAB PO STA (09:06)
--- NOTE | 2021-10-03 11:12 | P.CRDCN ---
History of Present Illness Consult date: 10/03/21 History of present illness: HISTORY OF PRESENT ILLNESS: This is a 76-year-old male with a past medical history significant for paroxysmal atrial fibrillation, coronary artery disease with previous angioplasty, hypertension, hyperlipidemia, diabetes, and TIA. Patient follows in the office with Dr. Wellington. We have been asked to see the patient in consultation for chest pain. Patient examined at the bedside. Patient presented to the hospital with a chief complaint of nausea, back pain, and shortness of breath. He denied having any chest pain. The patient states he has been "having issues with atrial fibrillation". He states he can tell when he goes into atrial fibrillation. He monitors his heart rate at home and states with minimal activ ity such as walking from the chair to the bathroom his heart rate will go into the 130s to 140s. He is currently taking metoprolol 25 mg twice a day at home. The patient just saw Dr. Quintana an office on 09/18/2021. No changes are made to his medications at that time. The patient states he has not been evaluated previously by an pouch maker for possible ablation. * EKG reveals atrial flutter with heart rate of 101 * Chest xray left lower lobe infiltrate and small effusion stable. * Laboratory data: WBC 9.0. Hemoglobin 13.6. Platelet count 230. Sodium 140. Potassium 4.3. BUN 27. Creatinine 1.47. Troponin 0.110. 0.138. 0.158. * Current home cardiac medications include lisinopril 20 mg at night, metoprolol tartrate 25 mg twice a day, Imdur 15 mg daily, Plavix 75 mg daily, atorv astatin 80 mg daily, Eliquis 5 mg twice a day * Most recent echocardiogram obtained in August 2021 revealed ejection fraction 45-50%, severely dilated LA, mild aortic regurgitation, mild aortic stenosis, cannot exclude bicuspid valve, moderate mitral regurgitation, mild pulmonary hypertension * Cardiac catheterization history: August 2021 revealing intermediate lesion of the mid RCA. FFR was performed and came back at 0.8. Medical management was recommended. REVIEW OF SYSTEMS: At the time of my exam: CONSTITUTIONAL: Denies fever or chills. HEENT: Denies blurred vision, vision changes, or eye pain. Denies hemoptysis CARDIOVASCULAR: Denies chest pain. Denies orthopnea. Denies PND. Denies palpitations RESPIRATORY: Denies shortness of breath. GASTROINTESTINAL: Denies abdominal pain. Denies nausea or vomiting. HEMATOLOGIC: Denies bleeding disorders. GENITOURINARY: Denies any blood in urine. SKIN: Denies pruitis. Denies rash. PHYSICAL EXAM: VITAL SIGNS: Reviewed. GENERAL: Well-developed in no acute distress. HEENT: Head is normocephalic. Pupils are equal, round. Sclerae anicteric. Mucous membranes of the mouth are moist. Neck supple. No JVD or thyromegaly LUNGS: Respirations even and unlabored. Lungs essentially clear to auscultation bilaterally. HEART: Irregular rate and rhythm. S1 and S2 heard. Systolic murmur noted. ABDOMEN: Soft. Nondistended. Nontender. EXTREMITIES: Normal range of motion. No clubbing or cyanosis. Peripheral pulses intact. No lower extremity edema NEUROLOGIC: Awake and alert. Oriented x 3. ASSESSMENT: Chest pain, ruled out, patient denied having chest pain Paroxysmal atrial fibrillation/typical atrial flutter, symptomatic with suspected RVR at home Abnormal troponins, flat, no evidence of ACS Coronary artery disease Chronic kidney disease Hypertension Hyperlipidemia Diabetes History of TIA PLAN: Resume home cardiac medications Increase metoprolol to 50mg BID Consult Dr. Vizcarra for EP evaluation for possible ablation Further recommendations pending patient course Nurse practitioner note has been reviewed by physician. Signing provider agrees with the documented findings, assessment, and plan of care. Past Medical History Past Medical History: Atrial Fibrillation, Asthma, Coronary Artery Disease (CAD), CVA/TIA, Diabetes Mellitus, Hypertension, Myocardial Infarction ([place]) Additional Past Medical History / Comment(s): type 2 diabetes controlled, [place] 09/02, Stroke Last Myocardial Infarction Date:: 09/02 History of Any Multi-Drug Resistant Organisms: None Reported Past Surgical History: Heart Catheterization With Stent, Orthopedic Surgery Additional Past Surgical History / Comment(s): stent placed november 2020, left knee TKA, Right should shoulder, Bilateral cataract sx Past Anesthesia/Blood Transfusion Reactions: No Reported Reaction Date of Last Stent Placement:: 11/2020 Past Psychological History: Anxiety, Depression Smoking Status: Never smoker Past Alcohol Use History: Occasional Past Drug Use History: None Reported - Past Family History Mother Family Medical History: Dementia Additional Family Medical History / Comment(s): mother at 58 years old of alzhimar disease Brother(s) Family Medical History: CVA/TIA, Dementia Father Family Medical History: Diabetes Mellitus Additional Family Medical History / Comment(s): of old age at 92 years old Sister(s) Family Medical History: Cancer, Coronary Artery Disease (CAD) Additional Family Medical History / Comment(s): Sister of lung cancer Medications and Allergies Home Medications Medication Instructions Recorded Confirmed Type Albuterol Sulfate [Albuterol 2 puff INHALATION RT-Q4H PRN 09/02/21 10/02/21 History Sulfate Hfa] Allopurinol [Zyloprim] 100 mg PO DAILY 09/02/21 10/02/21 History Apixaban [Eliquis] 5 mg PO BID 09/02/21 10/02/21 History Atorvastatin [Lipitor] 80 mg PO DAILY 09/02/21 10/02/21 History Bimatoprost [Lumigan .01% Ophth 1 drop BOTH EYES HS 09/02/21 10/02/21 History Soln] Brimonidine Tartrate/Timolol 1 drop BOTH EYES BID 09/02/21 10/02/21 History [Combigan 0.2%-0.5% Eye Drops] Citalopram Hydrobromide [CeleXA] 20 mg PO DAILY 09/02/21 10/02/21 History Clopidogrel [Plavix] 75 mg PO DAILY 09/02/21 10/02/21 History Fenofibrate,Micronized 67 mg PO DAILY 09/02/21 10/02/21 History Magnesium Oxide [Mag-Ox] 1,600 mg PO DAILY 09/02/21 10/02/21 History Multivitamins, Thera [Multivitamin 1 tab PO DAILY 09/02/21 10/02/21 History (formulary)] Omeprazole 20 mg PO DAILY 09/02/21 10/02/21 History busPIRone HCL 10 mg PO BID 09/02/21 10/02/21 History metFORMIN HCL ER [Glucophage XR] 500 mg PO HS 09/02/21 10/02/21 History Isosorbide Mononitrate ER [Imdur] 15 mg PO DAILY #30 tab 09/05/21 10/02/21 Rx Metoprolol Tartrate [Lopressor] 25 mg PO BID #60 tab 09/05/21 10/02/21 Rx Nitroglycerin Sl Tabs [Nitrostat] 0.4 mg SUBLINGUAL Q5M PRN #30 tab 09/05/21 10/02/21 Rx lisinopriL [Zestril] 20 mg PO HS #0 09/05/21 10/02/21 Rx Allergies Allergy/AdvReac Type Severity Reaction Status Date / Time No Known Allergies Allergy Verified 10/02/21 14:09 Physical Exam Vitals: Vital Signs Temp Pulse Pulse Resp BP BP Pulse Ox 10/03/21 08:00 60 16 141/82 95 10/03/21 04:00 63 20 138/78 96 10/03/21 02:00 74 18 10/03/21 00:00 74 18 124/78 98 10/02/21 20:57 98.2 F 65 18 129/86 97 10/02/21 14:48 97 18 155/105 98 10/02/21 11:36 78 Intake and Output 10/02/21 10/03/21 10/03/21 22:59 06:59 14:59 Output Total 400 Balance -400 Output: Urine 400 Results 10/03/21 07:21 10/03/21 07:21 Cardiac Enzymes 10/02/21 10/02/21 10/02/21 Range/Units 11:10 11:10 15:21 AST 30 (17-59) U/L Troponin I 0.110 H* 0.138 H* (0.000-0.034) ng/mL 10/02/21 Range/Units 18:05 AST (17-59) U/L Troponin I 0.158 H* (0.000-0.034) ng/mL Coagulation 10/02/21 Range/Units 11:10 PT 11.9 (9.0-12.0) sec APTT 24.7 (22.0-30.0) sec CBC 10/02/21 10/03/21 Range/Units 11:10 07:21 WBC 9.6 9.0 (3.8-10.6) k/uL RBC 4.65 4.44 (4.30-5.90) m/uL Hgb 13.9 13.6 (13.0-17.5) gm/dL Hct 43.8 42.3 (39.0-53.0) % Plt Count 266 230 (150-450) k/uL Comprehensive Metabolic Panel 10/02/21 10/03/21 Range/Units 11:10 07:21 Sodium 139 140 (137-145) mmol/L Potassium 4.3 4.3 (3.5-5.1) mmol/L Chloride 108 H 106 (98-107) mmol/L Carbon Dioxide 24 28 (22-30) mmol/L BUN 32 H 27 H (9-20) mg/dL Creatinine 1.59 H 1.47 H (0.66-1.25) mg/dL Glucose 169 H 104 H (74-99) mg/dL Calcium 9.8 9.5 (8.4-10.2) mg/dL AST 30 (17-59) U/L ALT 18 (4-49) U/L Alkaline Phosphatase 82 (38-126) U/L Total Protein 6.8 (6.3-8.2) g/dL Albumin 3.8 (3.5-5.0) g/dL Current Medications Generic Name Dose Route Start Last Admin Trade Name Freq PRN Reason Stop Dose Admin Albuterol Sulfate 2 puff 10/02/21 18:10 Albuterol Hfa Inhaler INHALATION RT-Q4H PRN Shortness Of Breath Allopurinol 100 mg 10/03/21 09:00 10/03/21 08:53 Allopurinol 100 Mg Tab PO 100 mg DAILY [facility] Administration Apixaban 5 mg 10/02/21 21:00 10/03/21 08:53 Apixaban 5 Mg Tab PO 5 mg BID [facility] Administration Protocol Atorvastatin Calcium 80 mg 10/03/21 09:00 10/03/21 08:53 Atorvastatin 80 Mg Tab PO 80 mg DAILY [facility] Administration Brimonidine Tartrate 1 drops 10/02/21 21:00 10/03/21 08:53 Brimonidine Tartrate 0.2% Drops 5 Ml Btl BOTH EYES 1 drops BID [facility] Administration Buspirone HCl 10 mg 10/02/21 21:00 10/03/21 08:52 Buspirone Hcl 10 Mg Tab PO 10 mg BID [facility] Administration Citalopram Hydrobromide 20 mg 10/03/21 09:00 10/03/21 08:53 Citalopram Hydrobromide 20 Mg Tab PO 20 mg DAILY [facility] Administration Clopidogrel Bisulfate 75 mg 10/03/21 09:00 10/03/21 08:52 Clopidogrel 75 Mg Tab PO 75 mg DAILY [facility] Administration Fenofibrate 54 mg 10/03/21 09:00 10/03/21 08:52 Fenofibrate 54 Mg Tab PO 54 mg DAILY [facility] Administration Insulin Aspart 0 unit 10/02/21 21:00 10/03/21 06:28 Insulin Aspart (Novolog) 100 Unit/Ml Vial SQ Not Given ACHS [facility] Protocol Isosorbide Mononitrate 15 mg 10/03/21 09:00 10/03/21 08:52 Isosorbide Mononitrate Er 15 Mg Tab PO 15 mg DAILY [facility] Administration Latanoprost 1 drops 10/02/21 21:00 10/02/21 22:18 Latanoprost 0.005% Ophth Drops 2.5 Ml Btl BOTH EYES 1 drops HS [facility] Administration Lisinopril 20 mg 10/02/21 21:00 10/02/21 22:15 Lisinopril 20 Mg Tab PO 20 mg HS [facility] Administration Magnesium Oxide 1,600 mg 10/03/21 09:00 10/03/21 08:52 Magnesium Oxide 400 Mg Tab PO 1,600 mg DAILY [facility] Administration Metoprolol Tartrate 50 mg 10/03/21 21:00 Metoprolol Tartrate 50 Mg Tab PO BID [facility] Multivitamins 1 each 10/03/21 09:00 10/03/21 08:52 Multivitamins, Thera 1 Each Tab PO 1 each DAILY [facility] Administration Nitroglycerin 0.4 mg 10/02/21 18:10 Nitroglycerin Sl Tabs 0.4 Mg Tab SUBLINGUAL Q5M PRN Chest Pain Pantoprazole Sodium 40 mg 10/03/21 07:30 10/03/21 06:28 Pantoprazole 40 Mg Tablet PO Not Given AC-[id number] [facility] Timolol Maleate 1 drops 10/02/21 21:00 10/03/21 08:53 Timolol 0.5% Ophth Drops 5 Ml Btl BOTH EYES 1 drops BID [facility] Administration Intake and Output 10/02/21 10/03/21 10/03/21 22:59 06:59 14:59 Output Total 400 Balance -400 Output: Urine 400 10/03/21 07:21 10/03/21 07:21
[2021-10-03 12:02] LABS: Glucose,Whole Blood 140 mg/dL (75-99)
[2021-10-03 13:00] LABS: LDL Cholesterol,Calculated 59.7 mg/dL (0.0-131.0)
[2021-10-03 16:36] LABS: Glucose,Whole Blood 175 mg/dL (75-99)
[2021-10-03 20:22] LABS: Glucose,Whole Blood 132 mg/dL (75-99)
[2021-10-03] MEDS: lisinopriL 20 MG TAB PO SCH (20:26)
[2021-10-03] MEDS: METOPROLOL TARTRATE 50 MG TAB PO SCH (20:26)
[2021-10-03] MEDS: LATANOPROST 0.005% OPHTH DROPS 2.5 ML BTL BOTH EYES SCH (20:28)
--- NOTE | 2021-10-04 00:16 | P.PN ---
Subjective Progress Note Date: 10/03/21 This is a pleasant 76year old male who was admitted with severe chest pain and palpitations. Patient was found to be in atrial fibrillation with RVR. Patient has been followed by cardiology and recommending evaluation by Dr. Vizcarra for possible ablation. Consult pending. Patient denies chest pain currently as he states the pain is usually with exertion. Denies shortness of breath, Patient is afebrile. Currently rate controlled. Review of systems: Constitutional: No reports of fatigue, fever, or chills Cardiovascular: No reports of chest pain or palpitations Respiratory: No reports of shortness of breath or cough GI: No reports of nausea, no reports of of vomiting : No reports of dysuria or retention Neurovascular: No reports of generalized weakness All medications have been reviewed Active Medications Albuterol Sulfate (Albuterol Hfa Inhaler) 2 puff INHALATION RT-Q4H PRN PRN Reason: Shortness Of Breath Allopurinol (Allopurinol 100 Mg Tab) 100 mg PO DAILY [facility] Last Admin: 10/03/21 08:53 Dose: 100 mg Documented by: Apixaban (Apixaban 5 Mg Tab) 5 mg PO BID [facility]; Protocol Last Admin: 10/03/21 20:26 Dose: 5 mg Documented by: Atorvastatin Calcium (Atorvastatin 80 Mg Tab) 80 mg PO DAILY [facility] Last Admin: 10/03/21 08:53 Dose: 80 mg Documented by: Brimonidine Tartrate (Brimonidine Tartrate 0.2% Drops 5 Ml Btl) 1 drops BOTH EYES BID [facility] Last Admin: 10/03/21 20:28 Dose: 1 drops Documented by: Buspirone HCl (Buspirone Hcl 10 Mg Tab) 10 mg PO BID [facility] Last Admin: 10/03/21 20:26 Dose: 10 mg Documented by: Citalopram Hydrobromide (Citalopram Hydrobromide 20 Mg Tab) 20 mg PO DAILY [facility] Last Admin: 10/03/21 08:53 Dose: 20 mg Documented by: Clopidogrel Bisulfate (Clopidogrel 75 Mg Tab) 75 mg PO DAILY [facility] Last Admin: 10/03/21 08:52 Dose: 75 mg Documented by: Fenofibrate (Fenofibrate 54 Mg Tab) 54 mg PO DAILY [facility] Last Admin: 10/03/21 08:52 Dose: 54 mg Documented by: Insulin Aspart (Insulin Aspart (Novolog) 100 Unit/Ml Vial) 0 unit SQ ACHS [facility]; Protocol Last Admin: 10/03/21 20:22 Dose: Not Given Documented by: Isosorbide Mononitrate (Isosorbide Mononitrate Er 15 Mg Tab) 15 mg PO DAILY [facility] Last Admin: 10/03/21 08:52 Dose: 15 mg Documented by: Latanoprost (Latanoprost 0.005% Ophth Drops 2.5 Ml Btl) 1 drops BOTH EYES [facility] Last Admin: 10/03/21 20:28 Dose: 1 drops Documented by: Lisinopril (Lisinopril 20 Mg Tab) 20 mg PO HS [facility] Last Admin: 10/03/21 20:26 Dose: 20 mg Documented by: Magnesium Oxide (Magnesium Oxide 400 Mg Tab) 1,600 mg PO DAILY [facility] Last Admin: 10/03/21 08:52 Dose: 1,600 mg Documented by: Metoprolol Tartrate (Metoprolol Tartrate 50 Mg Tab) 50 mg PO BID [facility] Last Admin: 10/03/21 20:26 Dose: 50 mg Documented by: Multivitamins (Multivitamins, Thera 1 Each Tab) 1 each PO DAILY [facility] Last Admin: 10/03/21 08:52 Dose: 1 each Documented by: Nitroglycerin (Nitroglycerin Sl Tabs 0.4 Mg Tab) 0.4 mg SUBLINGUAL Q5M PRN PRN Reason: Chest Pain Pantoprazole Sodium (Pantoprazole 40 Mg Tablet) 40 mg PO AC-BRKFST [facility] Last Admin: 10/03/21 06:28 Dose: Not Given Documented by: Timolol Maleate (Timolol 0.5% Ophth Drops 5 Ml Btl) 1 drops BOTH EYES BID [facility] Last Admin: 10/03/21 20:28 Dose: 1 drops Documented by: PHYSICAL EXAMINATION: GENERAL: The patient is alert and oriented x4, Well developed, well nourished. HEENT: Pupils are round and equally reacting to light. EOMI. does have scleral icterus. No conjunctival pallor. Normocephalic, atraumatic. No pharyngeal erythema. No thyromegaly. CARDIOVASCULAR: S1 and S2 muffled PULMONARY: diminished breath sounds bilaterally with no wheezing or rhonchi noted. ABDOMEN: soft. Nontender on exam. non-distended, normoactive bowel sounds. No palpable organomegaly. MUSCULOSKELETAL: No joint swelling or deformity. EXTREMITIES: No cyanosis, clubbing, or pedal edema. NEUROLOGICAL: Gross neurological examination did not reveal any focal deficits. SKIN: No rashes. Assessment: Chest pain, possible acute NSTEMI, troponin 0.110 Atrial fibrillation with RVR Elevated creatinine, chronic kidney disease stage 3 Hypomagnesemia History of ND with stents GI prophylaxis DVT prophylaxis Full code Plan: Recommend to continue with current medications and managements. Cardiology has evaluated the patient and recommending maximizing medical management and evaluation by Dr. Vizcarra for possible ablation. Creatinine mildly elevated and recommend outpatient follow up labs in the next few days. Patient will likely follow up with Dr. Vizcarra in the outpatient setting. Prognosis is guarded. Possible discharge 24 hours. The impression and plan of care has been dictated by nurse michael Chong as directed. MD Parker I have performed a history and examination and MDM of this patient, discussed the same with the dictator, and agree with the dictator's assessment and plan as written ,documented as a scribe. Based on total visit time, I have performed more than 50% of the visit. Any additional findings or plans will be noted. Objective - Vital Signs Vital signs: Vital Signs Temp 98.2 F 10/02/21 20:57 Pulse 64 10/03/21 16:00 Resp 16 10/03/21 16:00 BP 115/62 10/03/21 16:00 Pulse Ox 97 10/03/21 16:00 Intake & Output 10/03/21 10/03/21 10/04/21 06:59 18:59 06:59 Intake Total 240 Output Total 400 550 Balance -400 -310 Intake: Oral 240 Output: Urine 400 550 Uretheral (Lindo) 550 Stool 0 Urine/Stool Mix 0 Other: # Voids 0 # Bowel Movements 0 - Labs CBC & Chem 7: 10/03/21 07:21 10/03/21 07:21 Labs: Abnormal Lab Results - Last 24 Hours (Table) 10/03/21 10/03/21 10/03/21 Range/Units 06:13 07:21 11:51 BUN 27 H (9-20) mg/dL Creatinine 1.47 H (0.66-1.25) mg/dL Glucose 104 H (74-99) mg/dL POC Glucose (mg/dL) 107 H 140 H (75-99) mg/dL Triglycerides 150.00 H (0.00-149.00) mg/dL HDL Cholesterol 37.30 L (40.00-60.00) mg/dL 10/03/21 10/03/21 Range/Units 16:34 20:13 BUN (9-20) mg/dL Creatinine (0.66-1.25) mg/dL Glucose (74-99) mg/dL POC Glucose (mg/dL) 175 H 132 H (75-99) mg/dL Triglycerides (0.00-149.00) mg/dL HDL Cholesterol (40.00-60.00) mg/dL
[2021-10-04 06:13] LABS: Glucose,Whole Blood 104 mg/dL (75-99)
[2021-10-04] MEDS: INSULIN ASPART (NovoLOG) 100 UNIT/ML VIAL SQ SCH ×2 (06:25→12:37)
[2021-10-04] MEDS: PANTOPRAZOLE 40 MG TABLET PO SCH (06:25)
[2021-10-04] MEDS: ALBUTEROL HFA INHALER INHALATION PRN ×2 (08:10→12:02)
[2021-10-04 09:37] VITALS: RESP 17
[2021-10-04] MEDS: APIXABAN 5 MG TAB PO SCH (09:38)
[2021-10-04] MEDS: CITALOPRAM HYDROBROMIDE 20 MG TAB PO SCH (09:38)
[2021-10-04] MEDS: allopurinoL 100 MG TAB PO SCH (09:38)
[2021-10-04] MEDS: ATORVASTATIN 80 MG TAB PO SCH (09:38)
[2021-10-04] MEDS: busPIRone HCl 10 MG TAB PO SCH (09:38)
[2021-10-04] MEDS: MAGNESIUM OXIDE 400 MG TAB PO SCH (09:39)
[2021-10-04] MEDS: MULTIVITAMINS, THERA 1 EACH TAB PO SCH (09:39)
[2021-10-04] MEDS: CLOPIDOGREL 75 MG TAB PO SCH (09:39)
[2021-10-04] MEDS: METOPROLOL TARTRATE 50 MG TAB PO SCH (09:39)
[2021-10-04] MEDS: TIMOLOL 0.5% OPHTH DROPS 5 ML BTL BOTH EYES SCH (09:40)
[2021-10-04] MEDS: BRIMONIDINE TARTRATE 0.2% DROPS 5 ML BTL BOTH EYES SCH (09:40)
[2021-10-04] MEDS: ISOSORBIDE MONONITRATE ER 15 MG TAB PO SCH (09:40)
[2021-10-04] MEDS: FENOFIBRATE 54 MG TAB PO SCH (09:41)
[2021-10-04 11:58] LABS: Glucose,Whole Blood 141 mg/dL (75-99)
[2021-10-04 12:02] VITALS: BP 124/76; PULSE 60; TEMP 98.1
--- NOTE | 2021-10-04 12:03 | P.PN ---
Subjective Progress Note Date: 10/04/21 HISTORY OF PRESENT ILLNESS: This is a 76-year-old male with a past medical history significant for paroxysmal atrial fibrillation, coronary artery disease with previous angioplasty, hypertension, hyperlipidemia, diabetes, and TIA. Patient follows in the office with Dr. Wellington. We have been asked to see the patient in consultation for chest pain. Patient examined at the bedside. Patient presented to the hospital with a chief complaint of nausea, back pain, and shortness of breath. He denied having any chest pain. The patient states he has been "having issues with atrial fibrillation". He states he can tell when he goes into atrial fibrillation. He monitors his heart rate at home and states with minimal activity such as walking from the chair to the bathroom his heart rate will go into the 130s to 140s. He is currently taking metoprolol 25 mg twice a day at home. The patient just saw Dr. Quintana an office on 09/18/2021. No changes are made to his medications at that time. The patient states he has not been evaluated previously by an gm for possible ablation. * EKG reveals atrial flutter with heart rate of 101 * Chest xray left lower lobe infiltrate and small effusion stable. * Laboratory data: WBC 9.0. Hemoglobin 13.6. Platelet count 230. Sodium 140. Potassium 4.3. BUN 27. Creatinine 1.47. Troponin 0.110. 0.138. 0.158. * Current home cardiac medications include lisinopril 20 mg at night, metoprolol tartrate 25 mg twice a day, Imdur 15 mg daily, Plavix 75 mg daily, atorvastatin 80 mg daily, Eliquis 5 mg twice a day * Most recent echocardiogram obtained in August 2021 revealed ejection fraction 45-50%, severely dilated LA, mild aortic regurgitation, mild aortic stenosis, cannot exclude bicuspid valve, moderate mitral regurgitation, mild pulmonary hypertension * Cardiac catheterization history: August 2021 revealing intermediate lesion of the mid RCA. FFR was performed and came back at 0.8. Medical management was recommended. 10/04/2021 Patient examined this morning at the bedside. Patient denies chest pain or pressure. Denies shortness of breath. Telemetry reveals atrial fibrillation with controlled ventricular rate. Patient denies having any palpitations. Vital signs are stable. PHYSICAL EXAM: VITAL SIGNS: Reviewed. GENERAL: Well-developed in no acute distress. HEENT: Head is normocephalic. Pupils are equal, round. Sclerae anicteric. Mucous membranes of the mouth are moist. Neck supple. No JVD or thyromegaly LUNGS: Respirations even and unlabored. Lungs essentially clear to auscultation bilaterally. HEART: Irregular rate and rhythm. S1 and S2 heard. Systolic murmur noted. ABDOMEN: Soft. Nondistended. Nontender. EXTREMITIES: Normal range of motion. No clubbing or cyanosis. Peripheral pulses intact. No lower extremity edema NEUROLOGIC: Awake and alert. Oriented x 3. ASSESSMENT: Chest pain, ruled out, patient denied having chest pain Paroxysmal atrial fibrillation/typical atrial flutter, symptomatic with suspected RVR at home Abnormal troponins, flat, no evidence of ACS Coronary artery disease Chronic kidney disease Hypertension Hyperlipidemia Diabetes History of TIA PLAN: Continue current cardiac medications Patient was supposed to be evaluated yesterday by Dr. Vizcarra. However, Dr. Vizcarra has not see the patient yet He is stable for discharge home today We will make the patient an appointment in the office to see Dr. Wellington and also Dr. Vizcarra Nurse practitioner note has been reviewed by physician. Signing provider agrees with the documented findings, assessment, and plan of care. Objective - Vital Signs Vital signs: Vital Signs Temp 97.5 F L 10/04/21 08:00 Pulse 66 10/04/21 08:00 Resp 17 10/04/21 08:00 BP 135/63 10/04/21 08:00 Pulse Ox 96 10/04/21 08:10 Intake & Output 10/03/21 10/04/21 10/04/21 18:59 06:59 18:59 Intake Total 240 480 Output Total 550 200 0 Balance -310 280 0 Intake: Oral 240 480 Output: Urine 550 200 Uretheral (Lindo) 550 Stool 0 0 0 Urine/Stool Mix 0 Other: Voiding Method Toilet # Voids 0 # Bowel Movements 0 - Labs CBC & Chem 7: 10/03/21 07:21 10/03/21 07:21 Labs: Abnormal Lab Results - Last 24 Hours (Table) 10/03/21 10/03/21 10/03/21 Range/Units 07:21 11:51 16:34 POC Glucose (mg/dL) 140 H 175 H (75-99) mg/dL Triglycerides 150.00 H (0.00-149.00) mg/dL HDL Cholesterol 37.30 L (40.00-60.00) mg/dL 10/03/21 10/04/21 10/04/21 Range/Units 20:13 06:09 11:56 POC Glucose (mg/dL) 132 H 104 H 141 H (75-99) mg/dL Triglycerides (0.00-149.00) mg/dL HDL Cholesterol (40.00-60.00) mg/dL
--- NOTE | 2021-10-05 17:35 | P.DS ---
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 Maninder Quintana. Chronic stable medical conditions include atrial fibrillation, asthma, diabetes, hypertension, CAD with stent placed in November 2020. One month ago, Admitted with unstable angina. cardiac catheterization by Dr. Quinatna. Intermediate lesion involving the mid RCA. FFR came back at 0.88. Plan for medical management. Patient on this occasion presented with chest pressure and shortness of breath with walking short distances. Also feeling his heart rate going up. Up to 130s to 140s. Patient's Lopressor was increased to 50 mg twice a day. Cleared by cardiology to be discharged. Patient will see Dr. Eduar Vizcarra as outpatient. Symptoms much better. 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 . Denies any history of smoking or alcohol. Family history: Mother from Alzheimer's disease age of 58. Physical examination: VITAL SIGNS: 98.1, 60, 17, 124/76, 99% room air GENERAL: He planning in bed,, comfortable EYES: Pupils equal. Conjunctiva normal. HEENT: External appearance of nose and ears normal, oral cavity grossly normal. NECK: JVD not raised; masses not palpable. HEART: Heart sounds irregular; no edema. LUNGS: Respiratory rate normal; clear to auscultation. ABDOMEN: Soft, nontender, liver spleen not palpable, no masses palpable. PSYCH: Alert and oriented x3; mood and affect normal. INVESTIGATIONS, reviewed in the clinical context: White count 9 hemoglobin 13.6 platelets 2:30 potassium 4.3. 27 creatinine 1.47 Troponin I 0.138, 0.158 Assessment and plan: -Paroxysmal atrial fibrillation with rapid ventricular rate Lopressor increased to 50 mg twice a day. Follow with Dr. Eduar Vizcarar outpatient. Eliquis -Nonobstructive CAD with recent Cardiac catheterization showing a mid RCA lesion intermediate obstruction. FFR 0.88. Medical management -CAD with a prior history of stent in November 2020 -Chronic kidney disease stage III from diabetic nephropathy and hypertensive nephrosclerosis Follow nephrology -Intermittent asthma Albuterol HFA 2 puffs every 4 when necessary -Moderate mitral regurgitation Follow clinically -IV heparin monitoring: Discontinued Follow PTT -Hyperlipidemia Lipitor 80 mg a day -Anxiety depression Celexa 20 mg a day -GERD Omeprazole 20 mg a day -Essential hypertension Zestril 20 mg a day, Lopressor 50 mg twice a day -Obesity BMI 30.8 Weight loss measures Disposition: Home Plan - Discharge Summary New Discharge Prescriptions: New Metoprolol Tartrate [Lopressor] 50 mg PO BID 30 Days #60 tab Continue Multivitamins, Thera [Multivitamin (formulary)] 1 tab PO DAILY Magnesium Oxide [Mag-Ox] 1,600 mg PO DAILY Allopurinol [Zyloprim] 100 mg PO DAILY Isosorbide Mononitrate ER [Imdur] 15 mg PO DAILY #30 tab Nitroglycerin Sl Tabs [Nitrostat] 0.4 mg SUBLINGUAL Q5M PRN #30 tab PRN Reason: Chest Pain lisinopriL [Zestril] 20 mg PO HS #0 metFORMIN HCL ER [Glucophage XR] 500 mg PO HS Bimatoprost [Lumigan .01% Ophth Soln] 1 drop BOTH EYES HS Fenofibrate,Micronized 67 mg PO DAILY Brimonidine Tartrate/Timolol [Combigan 0.2%-0.5% Eye Drops] 1 drop BOTH EYES BID Apixaban [Eliquis] 5 mg PO BID busPIRone HCL 10 mg PO BID Clopidogrel [Plavix] 75 mg PO DAILY Citalopram Hydrobromide [CeleXA] 20 mg PO DAILY Atorvastatin [Lipitor] 80 mg PO DAILY Albuterol Sulfate [Albuterol Sulfate Hfa] 2 puff INHALATION RT-Q4H PRN PRN Reason: Shortness Of Breath Omeprazole 20 mg PO DAILY Discontinued Metoprolol Tartrate [Lopressor] 25 mg PO BID #60 tab Discharge Medication List Albuterol Sulfate [Albuterol Sulfate Hfa] 2 puff INHALATION RT-Q4H PRN 09/02/21 [History] Allopurinol [Zyloprim] 100 mg PO DAILY 09/02/21 [History] Apixaban [Eliquis] 5 mg PO BID 09/02/21 [History] Atorvastatin [Lipitor] 80 mg PO DAILY 09/02/21 [History] Bimatoprost [Lumigan .01% Ophth Soln] 1 drop BOTH EYES HS 09/02/21 [History] Brimonidine Tartrate/Timolol [Combigan 0.2%-0.5% Eye Drops] 1 drop BOTH EYES BID 09/02/21 [History] Citalopram Hydrobromide [CeleXA] 20 mg PO DAILY 09/02/21 [History] Clopidogrel [Plavix] 75 mg PO DAILY 09/02/21 [History] Fenofibrate,Micronized 67 mg PO DAILY 09/02/21 [History] Magnesium Oxide [Mag-Ox] 1,600 mg PO DAILY 09/02/21 [History] Multivitamins, Thera [Multivitamin (formulary)] 1 tab PO DAILY 09/02/21 [History] Omeprazole 20 mg PO DAILY 09/02/21 [History] busPIRone HCL 10 mg PO BID 09/02/21 [History] metFORMIN HCL ER [Glucophage XR] 500 mg PO HS 09/02/21 [History] Isosorbide Mononitrate ER [Imdur] 15 mg PO DAILY #30 tab 09/05/21 [Rx] Nitroglycerin Sl Tabs [Nitrostat] 0.4 mg SUBLINGUAL Q5M PRN #30 tab 09/05/21 [Rx] lisinopriL [Zestril] 20 mg PO HS #0 09/05/21 [Rx] Metoprolol Tartrate [Lopressor] 50 mg PO BID 30 Days #60 tab 10/03/21 [Rx] Follow up Appointment(s)/Referral(s): Ponce Vizcarra MD [STAFF PHYSICIAN] - 1 Week (office will call you with appt. time) Fernando Baker MD [Primary Care Provider] - 1-2 days (SATURDAY, October 2:00) Andrey Wellington MD [STAFF PHYSICIAN] - 1 Week (October 9:45) Ambulatory/Diagnostic Orders: Basic Metabolic Panel [LAB.AMB] Time Frame: 3 Days, Location: None Selected Patient Instructions/Handouts: Chest Pain (DC), Ablacin cardaca (PRE) Activity/Diet/Wound Care/Special Instructions: Activity Limited until follow-up Follow-up with cardiology as discussed Follow-up with outpatient Recommend repeat labs in 2-3 days follow up with primary care provider on discharge Continue heart healthy diabetic diet Discharge Disposition: HOME SELF-CARE
== END 2021-10-04 15:24 | disposition home or self-care (01) ==
LOC: EC 10:59 → 3SCARD 13:52
PROVIDERS: ADMIT Hospitalist; ATTEND Hospitalist
DX: R07.89 Other chest pain (principal); I48.0 Paroxysmal atrial fibrillation; I25.10 Atherosclerotic heart disease of native coronary artery without angina pectoris; E11.22 Type 2 diabetes mellitus with diabetic chronic kidney disease; I12.9 Hypertensive chronic kidney disease with stage 1 through stage 4 chronic kidney disease, or unspecified chronic kidney disease; N18.30 Chronic kidney disease, stage 3 unspecified; J45.20 Mild intermittent asthma, uncomplicated; I48.92 Unspecified atrial flutter; R91.8 Other nonspecific abnormal finding of lung field; E83.42 Hypomagnesemia; R79.89 Other specified abnormal findings of blood chemistry; I08.3 Combined rheumatic disorders of mitral, aortic and tricuspid valves; I27.20 Pulmonary hypertension, unspecified; K21.9 Gastro-esophageal reflux disease without esophagitis; E78.5 Hyperlipidemia, unspecified; R11.0 Nausea; M54.9 Dorsalgia, unspecified; E66.9 Obesity, unspecified; Z68.30 Body mass index [BMI] 30.0-30.9, adult; I25.2 Old myocardial infarction; F32.A Depression, unspecified; F41.9 Anxiety disorder, unspecified; Z20.822 Contact with and (suspected) exposure to COVID-19; Z79.01 Long term (current) use of anticoagulants; Z79.02 Long term (current) use of antithrombotics/antiplatelets; Z79.84 Long term (current) use of oral hypoglycemic drugs; Z79.899 Other long term (current) drug therapy; Z95.5 Presence of coronary angioplasty implant and graft; Z98.890 Other specified postprocedural states; Z86.73 Personal history of transient ischemic attack (TIA), and cerebral infarction without residual deficits; Z98.42 Cataract extraction status, left eye; Z98.41 Cataract extraction status, right eye; Z96.652 Presence of left artificial knee joint; Z82.49 Family history of ischemic heart disease and other diseases of the circulatory system; Z83.3 Family history of diabetes mellitus; Z82.3 Family history of stroke; Z80.1 Family history of malignant neoplasm of trachea, bronchus and lung; Z82.0 Family history of epilepsy and other diseases of the nervous system; Z71.3 Dietary counseling and surveillance
CPT/HCPCS: 99285; 36415; 94640 ×2; 94760; 93005; 83880; 80061; 80053; 80048; 83735; 84484; 85025 ×2; 85610; 85730; 87635; 71046; G0378 ×3

== ENCOUNTER 2021-10-19 09:23 | Day surgery (SDC) | payer MEDICARE ==
[2021-10-18 09:10] VITALS: BMI 30.8
[~2021-10-19 09:23] MED LIST: SODIUM CHLORIDE 0.9% 1,000 ML IV SCH
[2021-10-19] MEDS ORDERED: SODIUM CHLORIDE 0.9% 500 ML 500 ML IV ONE (09:35)
[2021-10-19 10:03] LABS: Glucose,Whole Blood 133 mg/dL (75-99)
[2021-10-19] MEDS ORDERED: PROPOFOL 10 MG/ML 20 ML VIAL IV ONE (10:15)
[2021-10-19] MEDS ORDERED: ePHEDrine 50 MG/ML 1 ML VIAL ONE (10:15)
[2021-10-19] MEDS ORDERED: BENZOCAINE SPRAY 1 CAN MUCOUS MEM ONE (10:30)
[2021-10-19 11:15] VITALS: TEMP 97
[2021-10-19] MEDS ORDERED: SODIUM CHLORIDE 0.9% 1,000 ML IV SCH (11:15)
--- NOTE | 2021-10-19 11:47 | ECHOT ---
TRANSESOPHAGEAL ECHOCARDIOGRAM INDICATION: Persistent atrial fibrillation to rule out intracardiac thrombus prior to cardioversion. PROCEDURE NOTE: After obtaining informed consent, transesophageal echocardiogram is performed in left lateral position using an Omni plane probe. Local and IV sedation were obtained by the operation shift supervisor. The patient tolerated the procedure well without any obvious immediate complications. 2D, M-mode, color Doppler and spectral analysis has been performed. FINDINGS: 1. There is no intracardiac thrombus within the left atrial appendage, left atrium, right atrium, right ventricle or left ventricle. 2. Left atrium appears enlarged. 3. Right atrium, right ventricle appears within normal limits. 4. Left ventricle has normal size shows mild LV systolic dysfunction with an ejection fraction of 45-50 percent. Mitral valve is anatomically normal. There is moderate central mitral regurgitation noted. 5. Aortic valve is a 3-leaflet valve. There is mild aortic regurgitation noted. There is no evidence of [id number]-[id number] shunt by color-flow Doppler or shnft-bu-pmro shunt by agitated saline contrast study across the interatrial septum. Aortic root measures within normal limits. There is [id number]-ib-[id number] atherosclerotic block noted. CONCLUSIONS: 1. No intracardiac thrombus. 2. Mild LV systolic dysfunction. 3. Moderate mitral regurgitation. PLAN: The patient will undergo cardioversion. MMODL / IJN: [id number] /
[2021-10-19 12:16] VITALS: RESP 16
--- NOTE | 2021-10-19 12:26 | PCN ---
PROCEDURE NOTE CARDIOVERSION: INDICATION: Persistent atrial fibrillation. After obtaining informed consent, patient underwent electrical cardioversion using 150 joules of synchronized DC current. It showed the patient does not have intracardiac thrombus on transesophageal echo and is adequately anticoagulated with Eliquis. The patient converted to normal sinus rhythm after a second shock and stayed in sinus rhythm. He will be discharged home on Eliquis 5 b.i.d. and decrease his Lopressor to 25 b.i.d. on discharge. He will be followed up in my office in a week's time. MARLEY / VIVIANN: [id number] /
[2021-10-19 12:59] VITALS: BP 136/82; PULSE 72
== END 2021-10-19 13:23 | disposition home or self-care (01) ==
LOC: CATHCVL 09:23
PROVIDERS: ATTEND Internal Medicine Cardiovascular Disease
DX: I48.19 Other persistent atrial fibrillation (principal); I34.0 Nonrheumatic mitral (valve) insufficiency; I25.2 Old myocardial infarction; I25.10 Atherosclerotic heart disease of native coronary artery without angina pectoris; E11.9 Type 2 diabetes mellitus without complications; J45.909 Unspecified asthma, uncomplicated; I12.9 Hypertensive chronic kidney disease with stage 1 through stage 4 chronic kidney disease, or unspecified chronic kidney disease; N18.9 Chronic kidney disease, unspecified; Z86.73 Personal history of transient ischemic attack (TIA), and cerebral infarction without residual deficits; F41.9 Anxiety disorder, unspecified; F32.A Depression, unspecified
CPT/HCPCS: 93312; 93320; 93325; 92960; J2704

== ENCOUNTER 2022-06-19 07:01 | Day surgery (SDC) | payer MEDICARE ==
[2022-06-13 10:26] VITALS: BMI 31.5
[~2022-06-19 07:01] MED LIST changes: +ACETAMINOPHEN TAB 500 MG TAB PO PRN; +GABAPENTIN 300 MG CAP PO PRN; +MELOXICAM 7.5 MG TAB PO PRN; -SODIUM CHLORIDE 0.9% 1,000 ML IV SCH; +TRANEXAMIC ACID IN NACL,ISO-OS 1,000 MG in SALINE 1 100ML.BAG IVPB PRN
[2022-06-19] MEDS ORDERED: LACTATED RINGERS 1,000 ML IV SCH (07:25)
[2022-06-19] MEDS ORDERED: LIDOCAINE 1% (10MG/ML) FOR IV START INTRADERMA PRN (07:25)
[2022-06-19] MEDS ORDERED: HYDROmorphone 0.5 MG/0.5 ML SYRINGE IVP PRN ×4 (07:25→09:11)
[2022-06-19] MEDS ORDERED: ONDANSETRON 4 MG/2 ML VIAL IVP ONE ×2 (07:25→08:29)
[2022-06-19] MEDS ORDERED: LACTATED RINGERS 1,000 ML IV ONE ×2 (07:30→10:30)
[2022-06-19 08:14] LABS: Glucose,Whole Blood 132 mg/dL (70-110)
[2022-06-19] MEDS ORDERED: DEXAMETHASONE SOD PHOSPHATE 4 MG/ML 1 ML VIAL IVP ONE (08:29)
[2022-06-19] MEDS ORDERED: MIDAZOLAM 2 MG/2 ML VIAL IVP ONE (08:33)
[2022-06-19] MEDS ORDERED: ONDANSETRON 4 MG/2 ML VIAL IVP PRN (09:11)
[2022-06-19] MEDS ORDERED: NALOXONE 0.4 MG/ML 1 ML VIAL IV PRN (09:11)
[2022-06-19] MEDS ORDERED: HYDROcodone/APAP 7.5-325MG 1 EACH TAB PO PRN ×2 (09:12)
[2022-06-19] MEDS ORDERED: SODIUM CHLORIDE 0.9% 1,000 ML IV SCH (09:15)
[2022-06-19] MEDS ORDERED: ROPIVACAINE 0.2%-NS ON-Q PUMP 1,090 MG, EMPTY PAIN BALL 1 EACH MISCELLANE PRN (09:16)
--- NOTE | 2022-06-19 09:16 | P.ANPRN ---
Procedure Note - Anesthesia - Nerve Block Performed Left Adductor Canal Infusion Time Out Performed: Yes ([id number]) Date of Procedure: 06/19/22 Procedure Start Time: :32 Procedure Stop Time: : Location of Patient: PreOp Indication: Acute Post-Operative Pain, Dx/Pain Location (Left knee), Requested by Surgeon Specifically requested for management of pain by : Simón Serna Sedation Type: Sedate with meaningful contact maintained Preparation: Sterile Prep, Sterile Dressing Position: Supine Catheter: Indwelling Needle Types: Pajunk Needle Gauge: 18 Ultrasound used to visualize needle placement: Yes Ultrasound used to observe medication spread: Yes Injectate: 0.5% Ropivacaine (see comment for volume) (20 cc) Blood Aspirated: No Pain Paresthesia on Injection Noted: No Resistance on Injection: Normal Image Stored and Saved: Yes Events: Uneventful and Well Tolerated Left iPack Infusion Time Out Performed: Yes Date of Procedure: 06/19/22 Location of Patient: PreOp Indication: Acute Post-Operative Pain, Dx/Pain Location (left knee) Specifically requested for management of pain by Dr.: Simón Serna Sedation Type: Sedate with meaningful contact maintained Preparation: Sterile Prep Position: Right Lateral Catheter: None Needle Gauge: 21 Ultrasound used to visualize needle placement: Yes Ultrasound used to observe medication spread: Yes Injectate: 0.5% Ropivacaine (see comment for volume) (20 cc) Blood Aspirated: No Pain Paresthesia on Injection Noted: No Resistance on Injection: Normal Image Stored and Saved: Yes Events: Uneventful and Well Tolerated
[2022-06-19] MEDS ORDERED: SUCCINYLCHOLINE CHLORIDE 200 MG/10 ML VIAL IV ONE (09:22)
[2022-06-19] MEDS ORDERED: fentaNYL (PF) 50 MCG/ML 2 ML AMP ONE (09:22)
[2022-06-19] MEDS ORDERED: ROCURONIUM 10 MG/ML (5 ML VIAL) IV ONE (09:22)
[2022-06-19] MEDS ORDERED: GLYCOPYRROLATE 0.2 MG/ML 2 ML VIAL ONE (09:22)
[2022-06-19] MEDS ORDERED: LIDOCAINE 2% INJ 20 MG/ML (2 ML VIAL) ONE (09:22)
[2022-06-19] MEDS ORDERED: ROPIVACAINE 5 MG/ML 30 ML VIAL ONE (09:22)
[2022-06-19] MEDS ORDERED: TRANEXAMIC ACID IN NACL,ISO-OS 1,000 MG/100 ML BAG ONE (09:22)
[2022-06-19] MEDS ORDERED: NEOSTIGMINE 1 MG/ML 10 ML VIAL ONE (09:22)
[2022-06-19] MEDS ORDERED: HYDROmorphone (PF) 1 MG/ML ONE (09:22)
[2022-06-19] MEDS ORDERED: PROPOFOL 10 MG/ML 20 ML VIAL IV ONE (09:22)
[2022-06-19] MEDS ORDERED: ePHEDrine 50 MG/ML 1 ML VIAL ONE (09:22)
[2022-06-19] MEDS ORDERED: ceFAZolin 1,000 MG in SODIUM CHLORIDE 0.9% 1,000 ML IRRIGATION ONE (09:26)
--- NOTE | 2022-06-19 10:41 | P.OP ---
Date of Procedure: 06/19/22 Preoperative Diagnosis: Severe osteoarthritis left knee Postoperative Diagnosis: Severe osteoarthritis left knee Procedure(s) Performed: Left total knee arthroplasty Implants: [employer] Journey II CR Oxinium cruciate retaining femoral component size 7, left [employer] nonporous tibial baseplate size 5, left [employer] II, XLPE Deep Dished articular insert, size 9 mm, Size 5- 6, left [employer] Beba II resurfacing patellar component, oval, 35 mm All components were cemented using Palacos R bone cement The articulation is Oxinium on polyethylene Anesthesia: RASHAD Surgeon: Simón Serna Editor Index #1: Diane Jalloh Estimated Blood Loss (ml): 50 Pathology: other (Bone and cartilage) Condition: stable Disposition: PACU Indications for Procedure: After failure of conservative treatment we discussed the surgical and nonsurgical treatment options at length. Patient wishes to proceed with a total knee arthroplasty. Complications specific to this procedure were discussed at length, including but not limited to infection, bleeding, stiffness, and nerve injury. Covid-19 was also discussed at length with the patient, and they are aware of the current policies and procedures. The patient was given the option of delaying surgery, but they elect to proceed knowing these risks. Patient is aware of all these complications and informed consent was obtained Operative Findings: The operative findings are consistent with severe osteoarthritis of the left knee Description of Procedure: Patient was seen in the preoperative area and the consent was reviewed and the operative site was marked with a skin marker. The patient verified the procedure and the operative site. An adductor canal pain catheter and an iPACK block was placed by anesthesia in the preoperative area. The patient was then brought to the operating room and given preoperative antibiotics intravenously. A gram of transexamic acid was given intravenously. A general anesthetic was administered by the anesthesia department. A tourniquet was placed on the upper thigh and the lower extremity was prepped with chlorhexidine and draped in usual sterile fashion. A universal timeout was then performed which confirmed the patient's name, surgical site, ALLERGIES, and consent. The lower extremity was then exsanguinated and tourniquet was inflated to 250 mmHg. A standard anterior midline approach to the knee was performed. The skin and subcutaneous tissue were sharply dissected down to the patellar tendon. A medial parapatellar arthrotomy was then performed. The knee was then extended, the patellar was everted, and the knee was again flexed. The infra-patellar fat pad was removed in order to enhance exposure. The anterior horns of both menisci were excised, and a release was performed to the posterior medial aspect of the knee. On gross visual inspection, there was complete loss of articular cartilage in the medial and patellofemoral joint spaces. There was also significant cartilage damage in the lateral compartment. There were multiple periarticular osteophytes globally about the knee which were then removed with a Ronguer. The femoral canal was then opened with the 9.5 mm intramedullary drill. The 8 mm intramedullary mike was then inserted into the femoral canal with the distal femoral cutting guide set for 5 of valgus. The distal femoral cutting block was then pinned in place. The intramedullary mike was then removed, and the distal femur was then cut. The cutting block was then removed and the cut was checked for symmetry. The resected bone was then measured to confirm the appropriate distal femoral resection. Next, the sizing guide was then placed and set for 3 external rotation based off of the epicondylar axis and Whitesides line. Pins were then placed and the drill holes, and the femur was sized with the sizing stylus. The pins were then removed, and the sizing guide was then removed. The spikes of the femoral block was then placed into the predrilled holes, and malleted into place. Two 45 mm pins were then placed into the fixation holes on the cutting block. An tri wing was then used to ensure there would be no notching with the anterior cut. The anterior condyles were cut without notching. The anterior chord cut was then performed, followed by the posterior cut, posterior chamfer cut, and the anterior chamfer cut. The collateral ligaments were protected during the entire process. The cutting block was then removed. Any remaining bone and osteophytes were removed from the femur with a Ronguer. The femoral canal was plugged with autologous bone. Attention was then directed to the tibia. The remaining ACL was removed with a Ronguer, and the tibia was then gently subluxed forward with a large bent knee retractor. Any remaining menisci were excised. The posterior lateral corner was cauterized in order to coagulate the lateral geniculate artery. The extra medullary tibial cutting guide was then placed, set for the appropriate rotation, slope, and depth of resection. The proximal tibia cutting guide was then pinned in place. Proximal tibia was then cut and sized. The femoral trial was placed. A narrow saw blade was then used to remove the anterior intracondylar femoral bone. The CR notch trial was then placed. The tibial trial was placed with the appropriate-sized insert. The knee was able to fully extend and flex to 130 and was stable throughout all range of motion. The knee was then extended and the patella was everted. Patella was then measured, and then using an osteotomy guide, the patella was cut at the appropriate level. The patella was then measured and drilled and the patella trial was then placed. The knee was then taken through range of motion with the patella trial and the patella tracked normally using the no thumbs technique. The knee was then extended patella trial was then removed and the patella was everted. Knee was then flexed and lug holes were drilled through the femoral trial and the femoral trial was then removed. The tibial was then re-exposed, and the tibial broach guide was then pinned in place after it was set for the appropriate rotation to allow for the most coverage without overhang. The tibia was then reamed and broached. The cut surfaces of bone were then irrigated with pulsatile lavage. The knee was also irrigated with Irrisept solution. The components were then opened, the cement was mixed, and the components were then cemented in place. The cement was allowed to harden with the knee in full extension. After the cemented hardened, the tourniquet was released and hemostasis was obtained. A second gram of transexamic acid was given intravenously. The knee was again irrigated. The knee was again taken through range of motion and found to be stable throughout all range of motion of 0-130, and the patella tracked normally. The fascia was then closed with 0 Vicryl followed by #2 strata fix suture. The subcutaneous tissue was closed with 3-0 Vicryl and 3-0 strata fix. Exofin glue was used for the skin and placed with the knee in flexion. After the glue had dried, and Optafoam silver impregnated dressing was applied. The patient was then transferred to recovery room in stable condition. The project assistant TIM Puri was required due the complexity surgery and the need for a skilled rn medical surgical. She assisted in positioning, draping, retraction, and closure of the wound.
[2022-06-19 11:21] VITALS: TEMP 97
[2022-06-19] MEDS ORDERED: ALBUTEROL NEBULIZED 2.5 MG/3 ML INHALATION ONE (11:31)
--- NOTE | 2022-06-19 12:02 | XR ---
EXAMINATION TYPE: XR knee limited LT DATE OF EXAM: 06/19/2022 COMPARISON: NONE TECHNIQUE: Two views submitted HISTORY: Post op FINDINGS: There is a prosthetic knee in near anatomic alignment. There is soft tissue edema and emphysema. IMPRESSION: 1. Postoperative change. Appears in near-anatomic alignment
[2022-06-19 12:43] LABS: Glucose,Whole Blood 205 mg/dL (70-110)
[2022-06-19 13:27] VITALS: RESP 16
[2022-06-19 15:38] VITALS: BP 145/66; PULSE 74
== END 2022-06-19 15:40 | disposition home health service (06) ==
LOC: OR 07:01
PROVIDERS: ATTEND Orthopaedic Surgery
DX: M17.12 Unilateral primary osteoarthritis, left knee (principal); G89.18 Other acute postprocedural pain; E78.5 Hyperlipidemia, unspecified; I10 Essential (primary) hypertension; E11.9 Type 2 diabetes mellitus without complications; H91.90 Unspecified hearing loss, unspecified ear; R00.2 Palpitations; F10.90 Alcohol use, unspecified, uncomplicated; I25.2 Old myocardial infarction; I25.10 Atherosclerotic heart disease of native coronary artery without angina pectoris; J45.909 Unspecified asthma, uncomplicated; F41.8 Other specified anxiety disorders; N28.9 Disorder of kidney and ureter, unspecified; Z86.718 Personal history of other venous thrombosis and embolism; Z86.73 Personal history of transient ischemic attack (TIA), and cerebral infarction without residual deficits; Z79.82 Long term (current) use of aspirin; Z79.01 Long term (current) use of anticoagulants; Z79.899 Other long term (current) drug therapy; Z79.51 Long term (current) use of inhaled steroids; Z79.1 Long term (current) use of non-steroidal anti-inflammatories (NSAID); Z98.890 Other specified postprocedural states
CPT/HCPCS: 97110; 97161; 64999; 64448; 76942; 73560; 27447; C1713; C1776; C1751; J2250; J0330; J1100; J2710; J0690 ×2; J2405; J3010; J1170; J2795 ×2; J2704; J2001; 88300

== ENCOUNTER → 2023-05-23 | Outpatient (CLI) | payer MEDICARE ==
[2023-05-23 16:56] LABS: ALT 26 U/L (10-49); AST 31 U/L (14-35); Albumin 4.1 d/dL (3.8-4.9); Albumin/Globulin Ratio 1.78 Ratio (1.60-3.17); Alkaline Phosphatase 94 U/L (41-126); BUN/Creat Ratio 17.61 Ratio (12.00-20.00); Blood Urea Nitrogen 40.5 mg/dL (9.0-27.0); Calcium 10.2 mg/dL (8.7-10.3); Carbon Dioxide 27.7 mmol/L (21.6-31.8); Chloride 104 mmol/L (96-109); Globulin 2.3 d/dL (1.6-3.3); Glucose 164 mg/dL (70-110); Immunoglobulin M 79.7 mg/dL (40.0-280.0); Potassium 4.5 mmol/L (3.5-5.5); Sodium 144 mmol/L (135-145); Total Bilirubin 0.5 mg/dL (0.3-1.2); Total Protein 6.4 d/dL (6.2-8.2)
[2023-05-23 17:01] LABS: Hepatitis A Antibody IgM Nonreactive; Hepatitis B Core IgM Nonreactive; Hepatitis B Surface Antigen Nonreactive; Hepatitis C IgG Antibody Nonreactive
[2023-05-23 19:56] LABS: Anti-DNA, DS unit <1.0 IU/mL; DNA Double-Stranded Negative (Negative)
[2023-05-23 19:57] LABS: HIV 2 AB Non-Reactive (Non-Reactive); HIV AB P24 Non-Reactive (Non-Reactive); HIV P24 AG Non-Reactive (Non-Reactive)
[2023-05-24 13:46] LABS: C-ANCA <1:20 Titer (<1:20)
[2023-05-24 15:02] LABS: Anti-Glomerular Basement Memb <1.5 U/mL (<7.0)
== END | disposition home or self-care (01) ==
LOC: LABWHC1 11:55
PROVIDERS: ATTEND Internal Medicine Nephrology
DX: N18.32 Chronic kidney disease, stage 3b (principal); R53.83 Other fatigue
CPT/HCPCS: 36415; 80053; 80074; 83516; 83883; 86038; 86160; 86162; 86225; 86255; 86334; 87390

== ENCOUNTER 2023-06-16 11:59 | Observation (INO) | payer MEDICARE, OTHER ==
[2023-06-16] MEDS: LIDOCAINE 5% PATCH TOPICAL SCH (12:32)
[2023-06-16 12:53] LABS: Basophils % (A) 0 %; Eosinophils # (A) 0.1 k/uL (0-0.7); Eosinophils % (A) 1 %; HCT 38.6 % (39.0-53.0); Lymphocytes # (A) 1.3 k/uL (1.0-4.8); Lymphocytes % (A) 12 %; MCH 30.5 pg (25.0-35.0); MCHC 33.8 g/dL (31.0-37.0); MCV 90.4 fL (80.0-100.0); Mean Platelet Volume 8.3; Monocytes # (A) 0.5 k/uL (0-1.0); Monocytes % (A) 5 %; Neutrophils # (A) 8.7 k/uL (1.3-7.7); Neutrophils % (A) 81 %; Platelet Count 233 k/uL (150-450); RBC 4.27 m/uL (4.30-5.90); RDW 14.6 % (11.5-15.5); WBC 10.8 k/uL (3.8-10.6)
--- NOTE | 2023-06-16 13:10 | CT ---
EXAMINATION TYPE: CT thor lumbar spine wo con CT DLP: 1532.5 mGycm, Automated exposure control for dose reduction was used. DATE OF EXAM: 06/16/2023 12:57 PM COMPARISON: None. CLINICAL INDICATION:Male, 77 years old with history of pain; PHH, fall, right sided back pain TECHNIQUE: Axial images of the thoracolumbar spine were obtained without contrast. Coronal and sagitt al reformats were performed. FINDINGS: No spondylolisthesis. Acute mildly displaced fracture involving the superior and anterior endplates with extension to the inferior endplate of the T12 vertebral body. No vertebral body height loss at this time. No retropulsion. Surrounding paraspinal edema. Age-indeterminate central compress ion deformity of the L1 vertebral body . Approximately 10% height loss centrally. No retropulsion. Mu ltilevel disc space narrowing with endplate sclerosis and anterior osteophytosis. Posterior disc oste ophyte complex at T11-T12 without significant central canal stenosis. Broad-based disc bulge at L1-L2 with mild canal stenosis. Broad-based disc bulge at L3-L4 with mild central canal stenosis obvious d isc bulge at L4-L5 and L5-S1 with mild central canal stenosis. Bilateral facet arthropathy extending from L1 through S1 with bilateral mild neural foraminal stenosis at these levels. Degenerative changes of the right SI joint. Atherosclerotic calcification of the aorta and its branch es. Calcified granulomas within the lungs. IMPRESSION: 1. Acute mildly displaced fracture of the T12 vertebral body involving the superior, anterior, and i nferior endplates. No vertebral body height loss at this time. No retropulsion. 2. Age-indeterminate central compression deformity the L1 vertebral body with approximately 10% heig ht loss and no retropulsion. Lack of paraspinal edema suggests more remote process. 3. Mild multilevel degenerative disease and facet arthropathy as described above.
--- NOTE | 2023-06-16 13:12 | XR ---
EXAMINATION TYPE: XR Hip RT and AP Pelvis DATE OF EXAM: 06/16/2023 1:01 PM INDICATION: Patient age:Male; 77 years old; Reason for study: pain; PHH. COMPARISON: None. TECHNIQUE: The right hip was examined in the frontal and lateral projections and a AP pelvis. FINDINGS: No evidence of any acute osseous pathology, joint dislocation, or soft tissue swelling. Mil d osteoarthritic changes of both hips with medial joint space narrowing and acetabular sclerosis with marginal osteophytosis. Degenerative changes of the visualized lumbar spine IMPRESSION: 1. No acute osseous pathology. 2. Mild osteoarthritic changes of both hips.
--- NOTE | 2023-06-16 13:18 | ED ---
General Adult HPI - General Chief complaint: Fall Stated complaint: back pain Time Seen by Provider: 06/16/23 12:18 Source: patient, EMS, RN notes reviewed, old records reviewed Mode of arrival: EMS Limitations: no limitations - History of Present Illness Initial comments: Patient is a 77-year-old male with past medical history remarkable for prior blood clots on anticoagulation, atrial fibrillation, asthma, CAD, chronic bilateral knee pain, presents to the Emergency department 3 days after a fall at home. His is disabled and is helping her get the shower on Saturday morning. He stepped backwards when his bad knee gave out on him and he fell down hitting his right lower back on the toilet handlebar. He has been having pain since with decreased movement because of the pain. He is still able to ambulate with his walker however. Denies any urinary or bowel incontinence. Denies any lower extremity paralysis. Denies any saddle anesthesias. Presents for further evaluation at this time. States he doesn't have a history of a lumbar com pression fracture in the past. Pain is primarily in the mid distal thoracic spine and proximal lumbar spine with some radiation to the paraspinal muscles on the right.Patient is on blood thinners but denies hitting his head or loss of consciousness at the time of the fall. - Related Data Home Medications Medication Instructions Recorded Confirmed Albuterol Sulfate [Albuterol 2 puff INHALATION RT-Q4H PRN 09/02/21 06/16/23 Sulfate Hfa] Apixaban [Eliquis] 5 mg PO BID 09/02/21 06/16/23 Atorvastatin [Lipitor] 80 mg PO DAILY 09/02/21 06/16/23 Citalopram Hydrobromide [CeleXA] 20 mg PO HS 09/02/21 06/16/23 Fenofibrate,Micronized 67 mg PO DAILY 09/02/21 06/16/23 [Fenofibrate] Magnesium Oxide [Mag-Ox] 800 mg PO BID 09/02/21 06/16/23 Multivitamins, Thera [Multivitamin 1 tab PO HS 09/02/21 06/16/23 (formulary)] Omeprazole 20 mg PO DAILY 09/02/21 06/16/23 allopurinoL [Zyloprim] 100 mg PO DAILY 09/02/21 06/16/23 busPIRone HCL 10 mg PO BID 09/02/21 06/16/23 metFORMIN HCL ER [Glucophage XR] 500 mg PO HS 09/02/21 06/16/23 Aspirin [Children's Aspirin] 81 mg PO HS 06/13/22 06/16/23 ALPRAZolam [Xanax] 0.25 mg PO BID PRN 06/16/23 06/16/23 Dulaglutide [Trulicity] 0.75 mg SQ BANEGAS 06/16/23 06/16/23 Furosemide [Lasix] 40 mg PO DAILY 06/16/23 06/16/23 Isosorbide Mononitrate ER [Imdur] 30 mg PO DAILY 06/16/23 06/16/23 Prednisolone Acetate/Pf 1 drop BOTH EYES DAILY PRN 06/16/23 06/16/23 [Prednisolone Acet 1% Eye Drop] Previous Rx's Medication Instructions Recorded Nitroglycerin Sl Tabs [Nitrostat] 0.4 mg SUBLINGUAL Q5M PRN #30 tab 09/05/21 lisinopriL [Zestril] 20 mg PO HS #0 09/05/21 Metoprolol Tartrate [Lopressor] 25 mg PO BID 30 Days #60 tablet 10/19/21 Allergies Allergy/AdvReac Type Severity Reaction Status Date / Time No Known Allergies Allergy Verified 06/16/23 14:24 Review of Systems ROS Statement: Those systems with pertinent positive or pertinent negative responses have been documented in the HPI. Review of Systems: CONST: Denies fever EYES: Denies blurry vision ENT: Denies nasal congestion C/V: Denies Chest pain RESP: Denies shortness of breath GI: Denies abdominal pain : Denies dysuria SKIN: Denies rash. MSK: Endorses back pain NEURO: Denies headache ROS Other: All systems not noted in ROS Statement are negative. Past Medical History Past Medical History: Atrial Fibrillation, Asthma, Coronary Artery Disease (CAD), Chest Pain / Angina, CVA/TIA, Diabetes Mellitus, Deep Vein Thrombosis (DVT), GERD/Reflux, Hyperlipidemia, Hypertension, Myocardial Infarction (NC), Osteoarthritis (OA), Renal Disease, Skin Disorder Additional Past Medical History / Comment(s): Hx CVA 11/30, had stent placed. Some trouble remembering things since. Hx left DVT. 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 Current vision problems and headaches. Psorasis. Gout. Last Myocardial Infarction Date:: 09/02 History of Any Multi-Drug Resistant Organisms: None Reported Past Surgical History: Heart Catheterization With Stent, Orthopedic Surgery Additional Past Surgical History / Comment(s): Left knee surgery, right shoulder surgery, bilateral cataract surgery. Past Anesthesia/Blood Transfusion Reactions: No Reported Reaction, Motion Sickness Date of Last Stent Placement:: 11/2020 Past Psychological History: Anxiety, Depression Smoking Status: Never smoker Past Alcohol Use History: Occasional Past Drug Use History: None Reported - Past Family History Mother Family Medical History: Dementia Additional Family Medical History / Comment(s): at 58 years old of Al zheimer disease. Brother(s) Family Medical History: CVA/TIA, Dementia Father Family Medical History: Diabetes Mellitus Additional Family Medical History / Comment(s): of old age at 92 years old. Sister(s) Family Medical History: Cancer, Coronary Artery Disease (CAD) Additional Family Medical History / Comment(s): of lung cancer. General Exam - General Exam Comments Initial Comments: General: Appears in mild distress. HEAD: Normal with no signs of head trauma. EYES: PERRLA, EOMI, conjunctiva normal, no discharge. Pupils are 3 mm and equal bilaterally. ENT: Hearing grossly intact, normal oropharynx. RESPIRATORY: Clear breath sounds bilaterally. No wheezes, rales, or rhonchi. C/V: Regular rate and rhythm. S1 and S2 auscultated, peripheral pulses 2+ and intact throughout ABD: Abd is soft, nontender, nondistended EXT: Normal range of motion, no obvious deformity. Midline distal thoracic and proximal lumbar spine tenderness to palpation without any step-offs or deformities. Radiation to the paraspinal muscles on the right. No cervical spine tenderness to palpation. SKIN: No rashes or lesions observed on exposed skin. NEURO: Alert and oriented x 4. Cranial nerves II-XII intact. No focal acute sensory or strength deficits. No saddle anesthesias. Limitations: no limitations Course Vital Signs 06/16/23 06/16/23 06/16/23 12:04 14:31 15:18 Temperature 97.6 F 97.9 F Pulse Rate 64 73 Pulse Rate [ 76 Pulse Oximetery ] Respiratory 18 18 18 Rate Blood Pressure 113/59 137/75 Blood Pressure 138/76 [Left Arm] O2 Sat by Pulse 95 96 94 L Oximetry Medical Decision Making - Medical Decision Making Was pt. sent in by a medical professional or institution (, TIM, ADMINISTRATIVE ASSISTANT RECEPTIONIST, urgent care, hospital, or detention...) When possible be specific @ -No Did you speak to anyone other than the patient for history (EMS, parent, family, police, friend...)? What history was obtained from this source @ -No Did you review nursing and triage notes (agree or disagree)? Why? @ -I reviewed and agree with nursing and triage notes Were old charts reviewed (outside hosp., previous admission, EMS record, old EKG, old radiological studies, urgent care reports/EKG's, detention records)? Report findings @ -Old charts reviewed Differential Diagnosis (chest pain, altered mental status, abdominal pain women, abdominal pain men, vaginal bleeding, weakness, fever, dyspnea, syncope, headache, dizziness, GI bleed, back pain, seizure, CVA, palpatations, mental health, musculoskeletal)? @ -Differential Musculoskeletal Muscular strain, contusion, ligament sprain, fracture, arthritis, septic arthritis, bursitis, cellulitis, muscle spasm, nerve compression, DVT, arterial occlusion, herpes zoster, electrolyte abnormality, tumor.... This is not meant to be in all inclusive listDifferential Back Pain: Strain, zoster, cauda equina syndrome, epidural abscess, vertebral osteomyelitis, discitis, fracture, subluxation, disc herniation, DJD, spinal stenosis, dissection, AAA, pancreatitis, peptic ulcer disease, pyelonephritis, kidney stone, this is not meant to be an all-inclusive list. EKG interpreted by me (3pts min.). @ -None done X-rays interpreted by me (1pt min.). @ -Hip and pelvis x-ray negative for any obvious traumatic injury. CT interpreted by me (1pt min.). @ -CT reveals T12 mildly displaced fracture of the vertebral body. Chronic lumbar compression deformity present at L1. U/S interpreted by me (1pt. min.). @ -None done What testing was considered but not performed or refused? (CT, X-rays, U/S, labs)? Why? @ -None What meds were considered but not given or refused? Why? @ -None Did you discuss the management of the patient with other professionals (professionals i.e. Dr., PA, ADMINISTRATIVE ASSISTANT RECEPTIONIST, lab, RT, psych nurse, psychiatric social worker, customer advisor, teacher, technology officer, case checker)? Give summary @ -Discussed the case with Dr. Zapata who accepted the patient onto her service. I also discussed the case of Dr. Meléndez who accepted the consult. Was smoking cessation discussed for >3mins.? @ -No Was critical care preformed (if so, how long)? @ -No Were there social determinants of health that impacted care today? How? (Homelessness, low income, unemployed, alcoholism, drug addiction, transportation, low edu. Level, literacy, decrease access to med. care, long-term, rehab)? @ -No Was there de-escalation of care discussed even if they declined (Discuss DNR or withdrawal of care, Hospice)? DNR status @ -No What co-morbidities impacted this encounter? (DM, HTN, Smoking, COPD, CAD, Cancer, CVA, ARF, Chemo, Hep., AIDS, mental health diagnosis, sleep apnea, mo rbid obesity)? @ -None Was patient admitted / discharged? Hospital course, mention meds given and route, prescriptions, significant lab abnormalities, going to OR and other pertinent info. @ -Based on the patient's presentation and physical exam, I'm concerned for musculoskeletal injury secondary to fall. Patient received fentanyl the way here and states his pain is somewhat improved. He'll be given a lidocaine patch. We will obtain CT imaging of the thoracic and lumbar spines as well as basic labs. He was in agreement with this plan. Vital signs are within acceptable limits. Rhythm localized pain, no significant findings on exam secondary to the patient's fall. Patient's laboratory studies are within acceptable limits. Patient is a history of CK D and is at his baseline. Patient's imaging remarkable for an acute T12 fracture as well as the chronic L1 compression fracture. I discussed results with the patient. As he is somewhat debilitated, has been unable to adequately move around at home, I did recommend admission and he was in agreement this plan. I spoke with orthopedic on-call Dr. Dominguez who accepted the admission. Medicine consulted for medical management, and I spoke with Dr. Meléndez who accepted consult. Undiagnosed new problem with uncertain prognosis? @ -No Drug Therapy requiring intensive monitoring for toxicity (Heparin, Nitro, Insulin, Cardizem)? @ -No Were any procedures done? @ -No Diagnosis/symptom? @ -Fall, T12 vertebral body fracture Acute, or Chronic, or Acute on Chronic? @ -Acute Uncomplicated (without systemic symptoms) or Complicated (systemic symptoms)? @ -Complicated Side effects of treatment? @ -none Exacerbation, Progression, or Severe Exacerbation] @ -no Poses a threat to life or bodily function? @ -no - Lab Data Result diagrams: 06/16/23 12:28 06/16/23 12:28 Lab Results 06/16/23 06/16/23 06/16/23 Range/Units 12:28 12:28 12:28 WBC 10.8 H (3.8-10.6) k/uL RBC 4.27 L (4.30-5.90) m/uL Hgb 13.0 (13.0-17.5) gm/dL Hct 38.6 L (39.0-53.0) % MCV 90.4 (80.0-100.0) fL MCH 30.5 (25.0-35.0) pg MCHC 33.8 (31.0-37.0) g/dL RDW 14.6 (11.5-15.5) % Plt Count 233 (150-450) k/uL MPV 8.3 Neutrophils % 81 % Lymphocytes % 12 % Monocytes % 5 % Eosinophils % 1 % Basophils % 0 % Neutrophils # 8.7 H (1.3-7.7) k/uL Lymphocytes # 1.3 (1.0-4.8) k/uL Monocytes # 0.5 (0-1.0) k/uL Eosinophils # 0.1 (0-0.7) k/uL Basophils # 0.0 (0-0.2) k/uL Sodium 141 (137-145) mmol/L Potassium 3.8 (3.5-5.1) mmol/L Chloride 105 (98-107) mmol/L Carbon Dioxide 25 (22-30) mmol/L Anion Gap 11 mmol/L BUN 44 H (9-20) mg/dL Creatinine 1.84 H (0.66-1.25) mg/dL Est GFR (CKD-EPI)AfAm 40 (>60 ml/min/1.73 sqM) Est GFR (CKD-EPI)NonAf 35 (>60 ml/min/1.73 sqM) Glucose 149 H (74-99) mg/dL Calcium 9.9 (8.4-10.2) mg/dL Urine Color Colorless Urine Appearance Clear (Clear) Urine pH 7.0 (5.0-8.0) Ur Specific Mobile 1.010 (1.001-1.035) Urine Protein Negative (Negative) Urine Glucose (UA) Negative (Negative) Urine Ketones Negative (Negative) Urine Blood Negative (Negative) Urine Nitrite Negative (Negative) Urine Bilirubin Negative (Negative) Urine Urobilinogen <2.0 (<2.0) mg/dL Ur Leukocyte Esterase Negative (Negative) Disposition Clinical Impression: T12 vertebral fracture Disposition: ADMITTED IP TO THIS HOSP Condition: Stable Time of Disposition: 14:00
[2023-06-16 13:29] LABS: Appearance,Urine Clear (Clear); Bilirubin,Urine Negative (Negative); Blood,Urine Negative (Negative); Color,Urine Colorless; Glucose,Urine (UA) Negative (Negative); Ketones,Urine Negative (Negative); Leukocyte Esterase,Urine Negative (Negative); Nitrite,Urine Negative (Negative); Protein,Urine Negative (Negative); Urobilinogen,Urine <2.0 mg/dL (<2.0)
[2023-06-16 13:30] LABS: African American GFR (CKD) 40 (>60 ml/min/1.73 sqM); Anion Gap 11 mmol/L; Blood Urea Nitrogen 44 mg/dL (9-20); Calcium 9.9 mg/dL (8.4-10.2); Carbon Dioxide 25 mmol/L (22-30); Chloride 105 mmol/L (98-107); Glucose 149 mg/dL (74-99); Non-African American GFR(CKD) 35 (>60 ml/min/1.73 sqM); Potassium 3.8 mmol/L (3.5-5.1); Sodium 141 mmol/L (137-145)
[2023-06-16] MEDS ORDERED: IBUPROFEN 400 MG TAB PO PRN (14:11)
[2023-06-16] MEDS ORDERED: NALOXONE 0.4 MG/ML 1 ML VIAL IV PRN (14:11)
[2023-06-16] MEDS: MORPHINE SULFATE 4 MG/ML SYRINGE IV PRN ×2 (18:14→22:54)
[2023-06-16 20:19] LABS: Glucose,Whole Blood 176 mg/dL (70-110)
[2023-06-16] MEDS ORDERED: ALBUTEROL NEBULIZED 2.5 MG/3 ML INHALATION PRN (20:55)
[2023-06-16] MEDS ORDERED: prednisoLONE ACETATE 1% OPHTH DROPS 5 ML BTL BOTH EYES PRN (20:55)
[2023-06-16] MEDS ORDERED: ALPRAZolam 0.25 MG TAB PO PRN (20:55)
[2023-06-16] MEDS ORDERED: DEXTROSE 50% SYRINGE 50 ML IVP PRN ×2 (20:56)
[2023-06-16] MEDS: lisinopriL 20 MG TAB PO SCH (22:48)
[2023-06-16] MEDS: CITALOPRAM HYDROBROMIDE 20 MG TAB PO SCH (22:48)
[2023-06-16] MEDS: busPIRone HCl 10 MG TAB PO SCH (22:48)
[2023-06-16] MEDS: INSULIN ASPART (NovoLOG) 100 UNIT/ML VIAL SQ SCH (22:48)
--- NOTE | 2023-06-17 00:57 | P.CONS ---
History of Present Illness - Reason for Consult Consult date: 06/16/23 Medical management - Chief Complaint status post fall - History of Present Illness Patient is a 77-year-old male with a past medical history of atrial fibrillation on anticoagulation with Eliquis, coronary disease stent replacement, hypertension, hyperlipidemia, diabetes type 2 [id number], CKD and prior history of CVAstatus post stent trouble remembering things and prior history of left lower extremity DVT, anxiety/depression presents to ER s/p fall. Patient fell at home about 3 days ago. Patient states that his is disabled due to her recent fall and is helping her to get into the bathtub. While he was putting her in the bathtub is bad knee gave way and fell on his back hitting the top of the tub. Denies any hitting her head. Ever since he has been having lower back pain. Was able to walk with a walker. Denies any tingling sensation numbness down the legs. No bladder or bowel incontinence. Denies any saddle anesthesia. Patient is currently on Eliquis for atrial fibrillation. No complaints of chest pain or shortness of breath. No dizziness or lightheadedness. On admission CT thoracic and lumbar spine was done showed acute mildly displaced fracture of the T12 vertebral body involving the superior, anterior and inferior endplates. No vertebral body height loss at this time. No retropulsion. Age-indeterminate central compression deformity of the L1 vertebral body with approximately 10% height loss and no retropulsion. Lack of paraspinal edema suggest more remote process. Mild multilevel degenerative disease and facet arthropathy. Hip/pelvic x-ray showed no acute osseous pathology. Mild osteoarthritic changes of both hips. Laboratory data showed WBC 10.8 hemoglobin 13.0 and platelets 233 BUN 44 and creatinine 88 and GFR 35. Review of Systems Constitutional: Patient denies any fever or chills . Generalized weakness. Abdomen: Patient denied any nausea or vomiting or abd. pain Cardiovascular: Patient denies any chest pain or short of breath no palpitations. Respiratory: patient denied any cough . no sputum production. No shortness of breath Neurologic: Patient denied any numbness or tingling or headache. Musculoskeletal: Patient denies any complaints of joint swelling or deformity. Mid back pain. Skin: Negative Psychiatric: Negative Endocrine: No heat or cold intolerance. No recent weight gain. Genitourinary: No dysuria or hematuria. All other 14 point ROS negative except the above Past Medical History Past Medical History: Atrial Fibrillation, Asthma, Coronary Artery Disease (CAD), Chest Pain / Angina, CVA/TIA, Diabetes Mellitus, Deep Vein Thrombosis (DV T), GERD/Reflux, Hyperlipidemia, Hypertension, Myocardial Infarction (ME), Osteoarthritis (OA), Renal Disease, Skin Disorder Additional Past Medical History / Comment(s): Hx CVA 11/30, had stent placed. Some trouble remembering things since. Hx left DVT. 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 Current vision problems and headaches. Psorasis. Gout. Last Myocardial Infarction Date:: 09/02 History of Any Multi-Drug Resistant Organisms: None Reported Past Surgical History: Heart Catheterization With Stent, Orthopedic Surgery Additional Past Surgical History / Comment(s): Left knee surgery, right shoulder surgery, bilateral cataract surgery. Past Anesthesia/Blood Transfusion Reactions: No Reported Reaction, Motion Sickness Date of Last Stent Placement:: 11/2020 Past Psychological History: Anxiety, Depression Smoking Status: Never smoker Past Alcohol Use History: Occasional Past Drug Use History: None Reported - Past Family History Mother Family Medical History: Dementia Additional Family Medical History / Comment(s): at 58 years old of Alzhe den disease. Brother(s) Family Medical History: CVA/TIA, Dementia Father Family Medical History: Diabetes Mellitus Additional Family Medical History / Comment(s): of old age at 92 years old. Sister(s) Family Medical History: Cancer, Coronary Artery Disease (CAD) Additional Family Medical History / Comment(s): of lung cancer. Medications and Allergies Home Medications Medication Instructions Recorded Confirmed Type Albuterol Sulfate [Albuterol 2 puff INHALATION RT-Q4H PRN 09/02/21 06/16/23 H istory Sulfate Hfa] Apixaban [Eliquis] 5 mg PO BID 09/02/21 06/16/23 History Atorvastatin [Lipitor] 80 mg PO DAILY 09/02/21 06/16/23 History Citalopram Hydrobromide [CeleXA] 20 mg PO HS 09/02/21 06/16/23 History Fenofibrate,Micronized 67 mg PO DAILY 09/02/21 06/16/23 History [Fenofibrate] Magnesium Oxide [Mag-Ox] 800 mg PO BID 09/02/21 06/16/23 History Multivitamins, Thera [Multivitamin 1 tab PO HS 09/02/21 06/16/23 History (formulary)] Omeprazole 20 mg PO DAILY 09/02/21 06/16/23 History allopurinoL [Zyloprim] 100 mg PO DAILY 09/02/21 06/16/23 History busPIRone HCL 10 mg PO BID 09/02/21 06/16/23 History metFORMIN HCL ER [Glucophage XR] 500 mg PO HS 09/02/21 06/16/23 History Nitroglycerin Sl Tabs [Nitrostat] 0.4 mg SUBLINGUAL Q5M PRN #30 tab 09/05/2101/01 Rx lisinopriL [Zestril] 20 mg PO HS #0 09/05/21 06/16/23 Rx Metoprolol Tartrate [Lopressor] 25 mg PO BID 30 Days #60 tablet 10/19/21 06/16/23 Rx Aspirin [Children's Aspirin] 81 mg PO HS 06/13/22 06/16/23 History ALPRAZolam [Xanax] 0.25 mg PO BID PRN 06/16/23 06/16/23 History Dulaglutide [Trulicity] 0.75 mg SQ BANEGAS 06/16/23 06/16/23 History Furosemide [Lasix] 40 mg PO DAILY 06/16/23 06/16/23 History Isosorbide Mononitrate ER [Imdur] 30 mg PO DAILY 06/16/23 06/16/23 History Prednisolone Acetate/Pf 1 drop BOTH EYES DAILY PRN 06/16/23 06/16/23 History [Prednisolone Acet 1% Eye Drop] Allergies Allergy/AdvReac Type Severity Reaction Status Date / Time No Known Allergies Allergy Verified 06/16/23 14:24 Physical Exam Vitals: Vital Signs Temp Pulse Pulse Resp BP BP Pulse Ox 06/16/23 19:48 98.0 F 65 18 118/62 92 L 06/16/23 15:18 97.9 F 76 18 138/76 94 L 06/16/23 14:31 73 18 137/75 96 06/16/23 12:04 97.6 F 64 18 113/59 95 Intake and Output 06/16/23 06/16/23 06/16/23 06:59 14:59 22:59 Intake Total 118 Balance 118 Intake: Oral 118 Other: Weight 97.522 kg 97.522 kg PHYSICAL EXAMINATION: Patient is lying in the bed comfortably, no acute distress, awake alert and oriented.. HEENT: Normocephalic. Neck is supple. Pupils reactive. Nostrils clear. Oral cavity is moist. Neck reveals no JVD, carotid bruits, or thyromegaly. CHEST EXAMINATION: Trachea is central. Symmetrical expansion. Lung cornejo clear to auscultation and percussion. CARDIAC: Normal S1, S2 with no gallops. No murmurs ABDOMEN: Soft. Bowel sounds present. Nontender. No organomegaly. No abdominal bruits. Extremities: reveal no edema. No clubbing or cyanosis Neurologically awake, alert, oriented x3 with well-coordinated movements. No focal deficits noted Skin: No rash or skin lesions. Psychiatric: Coperative. Nonsuicidal, Musculoskeletal: No joint swelling or deformity. Mid distal thoracic spine tenderness with paraspinal muscle spasm. Results CBC & Chem 7: 06/16/23 12:28 06/16/23 12:28 Labs: Abnormal Lab Results - Last 24 Hours (Table) 06/16/23 06/16/23 06/16/23 Range/Units 12:28 12:28 20:18 WBC 10.8 H (3.8-10.6) k/uL RBC 4.27 L (4.30-5.90) m/uL Hct 38.6 L (39.0-53.0) % Neutrophils # 8.7 H (1.3-7.7) k/uL BUN 44 H (9-20) mg/dL Creatinine 1.84 H (0.66-1.25) mg/dL Glucose 149 H (74-99) mg/dL POC Glucose (mg/dL) 176 H (70-110) mg/dL Assessment and Plan Assessment: Acute mildly displaced fracture of T12 vertebral body. Status post fall 3 days prior to admission. Currently disease stage III baseline creatinine level around 1.8. Paroxysmal atrial fibrillation/atrial flutter on anticoagulation with Eliquis. Coronary artery history of stent placement History of CVA/TIA with mild memory loss Hypertension Diabetes type 2 [id number] Hyperlipidemia DVT prophylaxis with SCDs currently. Plan: Patient will be continued on pain management with morphine, Motrin and lidocaine patches. Orthopedic surgery evaluation of the T12 vertebral body fractures. Eliquis and aspirin is on hold for possible surgical intervention. Continue with home blood pressure medications including metoprolol. We will continue to follow and further recommendations based on clinical course. Thank you kindly for your consult..
[2023-06-17 05:45] LABS: Glucose,Whole Blood 134 mg/dL (70-110)
[2023-06-17] MEDS: INSULIN ASPART (NovoLOG) 100 UNIT/ML VIAL SQ SCH ×4 (05:46→20:41)
[2023-06-17] MEDS: PANTOPRAZOLE 40 MG TABLET PO SCH (05:50)
[2023-06-17 08:22] LABS: Basophils # (A) 0.02 X 10*3/uL (0.00-0.10); Basophils % (A) 0.2 %; Eosinophils # (A) 0.09 X 10*3/uL (0.04-0.35); Eosinophils % (A) 1.1 %; HCT 38.4 % (39.6-50.0); HGB 12.1 d/dL (13.0-17.0); Lymphocytes # (A) 1.46 X 10*3/uL (0.90-5.00); Lymphocytes % (A) 17.5 %; MCH 29.3 pg (27.0-32.0); MCHC 31.5 d/dL (32.0-37.0); Mean Platelet Volume 10.9 FL (9.5-12.2); Monocytes # (A) 0.72 X 10*3/uL (0.20-1.00); Monocytes % (A) 8.7 %; NRBC Per 100 WBC 0 X 10*3/uL (0.00-0.01); Neutrophils # (A) 6.01 X 10*3/uL (1.80-7.70); Neutrophils % (A) 72.3 %; Platelet Count 211 X 10*3/uL (140-440); RBC 4.13 X 10*6/uL (4.40-5.60); RDW 14.4 % (11.5-14.5); WBC 8.32 X 10*3/uL (4.50-10.00)
[2023-06-17 08:44] LABS: BUN/Creat Ratio 21.84 Ratio (12.00-20.00); Blood Urea Nitrogen 41.5 mg/dL (9.0-27.0); Calcium 9.6 mg/dL (8.7-10.3); Carbon Dioxide 28.7 mmol/L (21.6-31.8); Chloride 103 mmol/L (96-109); Glucose 125 mg/dL (70-110); Potassium 3.9 mmol/L (3.5-5.5); Sodium 142 mmol/L (135-145)
[2023-06-17] MEDS: LIDOCAINE 5% PATCH TOPICAL SCH (09:26)
[2023-06-17] MEDS: FENOFIBRATE 54 MG TAB PO SCH (09:27)
[2023-06-17] MEDS: ISOSORBIDE MONONITRATE ER 30 MG TAB.ER.24H PO SCH (09:27)
[2023-06-17] MEDS: FUROSEMIDE 40 MG TAB PO SCH (09:27)
[2023-06-17] MEDS: ATORVASTATIN 80 MG TAB PO SCH (09:27)
[2023-06-17] MEDS: allopurinoL 100 MG TAB PO SCH (09:27)
[2023-06-17] MEDS: busPIRone HCl 10 MG TAB PO SCH ×2 (09:27→20:16)
[2023-06-17] MEDS: METOPROLOL TARTRATE 25 MG TAB PO SCH ×2 (09:27→20:16)
[2023-06-17] MEDS ORDERED: BACLOFEN 10 MG TAB PO PRN (09:38)
--- NOTE | 2023-06-17 09:42 | P.HPOR ---
History of Present Illness H&P Date: 06/17/23 Chief Complaint: Lower thoracic pain status post fall Patient is a very pleasant 77-year-old male who is seen and examined the bedside for further evaluation of his thoracic and lumbar spines. A fall in his bathroom 5 days ago when he stepped backwards in his right knee gave out on him. He fell hitting his back onto the toilet. He has a significant bruise across the midline at his thoracolumbar junction. He states he was able to mobilize at home for a couple days but his pain became persistent difficult to manage. He presented to [facility] for further evaluation. His pain is better controlled while lying at rest. He does have difficulty with rolling over in bed. His pain is most significant along the midline. He states he has a history of previous L1 compression fracture deformity status post injury years ago. That healed without significant difficulty. He does not have a known T12 compression fracture deformity. He is not having left total knee arthroplasty with benefit. He states he was playing to proceed forward with scheduling a right total knee arthroplasty with Dr. Simón Serna. He has had difficulty with his right knee and has osteoarthritis. His schedule plan was for 06/26/2023. He states he fell due to his knee. He does have a significant medical history which includes history of blood clots with coronary artery disease and atrial fibrillation. He is on anticoagulation with Eliquis and ASA. Denies any other injuries at the time of the fall. He is admitted to our service. He has been seen and examined by medicine for his other medical diagnoses including atrial fibrillation, coronary artery disease, diabetes mellitus, history of DVT, history of CVA/TIA, hyperlipidemia, hypertension, renal disease, and history of myocardial infarction. Past Medical History Past Medical History: Atrial Fibrillation, Asthma, Coronary Artery Disease (C AD), Chest Pain / Angina, CVA/TIA, Diabetes Mellitus, Deep Vein Thrombosis (DVT), GERD/Reflux, Hyperlipidemia, Hypertension, Myocardial Infarction ([place]), Osteoarthritis (OA), Renal Disease, Skin Disorder Additional Past Medical History / Comment(s): Hx CVA 11/30, had stent placed. Some trouble remembering things since. Hx left DVT. 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 Current vision problems and headaches. Psorasis. Gout. Last Myocardial Infarction Date:: 09/02 History of Any Multi-Drug Resistant Organisms: None Reported Past Surgical History: Heart Catheterization With Stent, Orthopedic Surgery Additional Past Surgical History / Comment(s): Left knee surgery, right shoulder surgery, bilateral cataract surgery. Past Anesthesia/Blood Transfusion Reactions: No Reported Reaction, Motion Sickness Date of Last Stent Placement:: 11/2020 Past Psychological History: Anxiety, Depression Smoking Status: Never smoker Past Alcohol Use History: Occasional Past Drug Use History: None Reported - Past Family History Mother Family Medical History: Dementia Additional Family Medical History / Comment(s): at 58 years old of Alzheimer disease. Brother(s) Family Medical History: CVA/TIA, Dementia Father Family Medical History: Diabetes Mellitus Additional Family Medical History / Comment(s): of old age at 92 years old. Sister(s) Family Medical History: Cancer, Coronary Artery Disease (CAD) Additional Family Medical History / Comment(s): of lung cancer. Medications and Allergies Home Medications Medication Instructions Recorded Confirmed Type Albuterol Sulfate [Albuterol 2 puff INHALATION RT-Q4H PRN 09/02/21 06/16/23 History Sulfate Hfa] Apixaban [Eliquis] 5 mg PO BID 09/02/21 06/16/23 History Atorvastatin [Lipitor] 80 mg PO DAILY 09/02/21 06/16/23 History Citalopram Hydrobromide [CeleXA] 20 mg PO HS 09/02/21 06/16/23 History Fenofibrate,Micronized 67 mg PO DAILY 09/02/21 06/16/23 History [Fenofibrate] Magnesium Oxide [Mag-Ox] 800 mg PO BID 09/02/21 06/16/23 History Multivitamins, Thera [Multivitamin 1 tab PO HS 09/02/21 06/16/23 History (formulary)] Omeprazole 20 mg PO DAILY 09/02/21 06/16/23 History allopurinoL [Zyloprim] 100 mg PO DAILY 09/02/21 06/16/23 History busPIRone HCL 10 mg PO BID 09/02/21 06/16/23 History metFORMIN HCL ER [Glucophage XR] 500 mg PO HS 09/02/21 06/16/23 History Nitroglycerin Sl Tabs [Nitrostat] 0.4 mg SUBLINGUAL Q5M PRN #30 tab 09/05/21 06/16/23 Rx lisinopriL [Zestril] 20 mg PO HS #0 09/05/21 06/16/23 Rx Metoprolol Tartrate [Lopressor] 25 mg PO BID 30 Days #60 tablet 10/19/21 06/16/23 Rx Aspirin [Children's Aspirin] 81 mg PO HS 06/13/22 06/16/23 History ALPRAZolam [Xanax] 0.25 mg PO BID PRN 06/16/23 06/16/23 History Dulaglutide [Trulicity] 0.75 mg SQ BANEGAS 06/16/23 06/16/23 History Furosemide [Lasix] 40 mg PO DAILY 06/16/23 06/16/23 History Isosorbide Mononitrate ER [Imdur] 30 mg PO DAILY 06/16/23 06/16/23 History Prednisolone Acetate/Pf 1 drop BOTH EYES DAILY PRN 06/16/23 06/16/23 History [Prednisolone Acet 1% Eye Drop] Allergies Allergy/AdvReac Type Severity Reaction Status Date / Time No Known Allergies Allergy Verified 06/16/23 14:24 Physical Examination Physical exam: Patient is awake, alert, and oriented 3 Vital signs stable Good chest excursion with deep inspiration and expiration Abdomen soft nontender Examination of her acid and lumbar spine reveals skin is intact with no abrasions or lacerations; no erythema, purulence or signs of infection Evidence of of a large bruise extending across the midline over the paraspinals bilaterally at the thoracolumbar junction Significant pain with palpation along the thoracolumbar junction Dorsiflexion, plantarflexion, and extensor hallucis longus positive sustained bilaterally Patient is able to perform hip flexion and knee extension bilaterally independently Some slowness with active range of motion of his right knee No signs or symptoms of DVT; no calf pain No pain with internal and external rotation of the hips bilaterally Neurovascularly intact Results Pertinent studies: CT of the thoracic and lumbar spine taken on 06/16/2023: Evidence of acute T12 compression fracture with mild displacement at the superiorly and anteriorly extending to the inferior endplate without significant height loss without evidence of retropulsion; L1 compression fracture deformity of approximately 10% height loss age-indeterminate with no retropulsion; L2-3, L3-4, L4-5, and L5-S1 mild central canal stenosis; facet arthropathy throughout the lumbar spine with neural foraminal stenosis at these levels X-rays of the right hip and pelvis taken on 12/12/2022: Mild osteoarthritis of bilateral hip joint spacing; no fracture dislocation within the pelvis - Labs Labs: Abnormal Lab Results - Last 24 Hours (Table) 06/16/23 06/16/23 06/16/23 Range/Units 12:28 12:28 20:18 WBC 10.8 H (3.8-10.6) k/uL RBC 4.27 L (4.30-5.90) m/uL Hgb (13.0-17.0) d/dL Hct 38.6 L (39.0-53.0) % MCHC (32.0-37.0) d/dL Neutrophils # 8.7 H (1.3-7.7) k/uL BUN 44 H (9-20) mg/dL Creatinine 1.84 H (0.66-1.25) mg/dL Est GFR (CKD-EPI) (>=60) BUN/Creatinine Ratio (12.00-20.00) Ratio Glucose 149 H (74-99) mg/dL POC Glucose (mg/dL) 176 H (70-110) mg/dL Hemoglobin A1c (<=6.0) % 06/17/23 06/17/23 06/17/23 Range/Units 05:41 05:41 05:41 WBC (3.8-10.6) k/uL RBC 4.13 L (4.30-5.90) m/uL Hgb 12.1 L (13.0-17.0) d/dL Hct 38.4 L (39.0-53.0) % MCHC 31.5 L (32.0-37.0) d/dL Neutrophils # (1.3-7.7) k/uL BUN 41.5 H (9-20) mg/dL Creatinine 1.9 H (0.66-1.25) mg/dL Est GFR (CKD-EPI) 36 L (>=60) BUN/Creatinine Ratio 21.84 H (12.00-20.00) Ratio Glucose 125 H (74-99) mg/dL POC Glucose (mg/dL) (70-110) mg/dL Hemoglobin A1c 7.8 H (<=6.0) % 06/17/23 Range/Units 05:44 WBC (3.8-10.6) k/uL RBC (4.30-5.90) m/uL Hgb (13.0-17.0) d/dL Hct (39.0-53.0) % MCHC (32.0-37.0) d/dL Neutrophils # (1.3-7.7) k/uL BUN (9-20) mg/dL Creatinine (0.66-1.25) mg/dL Est GFR (CKD-EPI) (>=60) BUN/Creatinine Ratio (12.00-20.00) Ratio Glucose (74-99) mg/dL POC Glucose (mg/dL) 134 H (70-110) mg/dL Hemoglobin A1c (<=6.0) % H & H 06/16/23 06/17/23 Range/Units 12:28 05:41 Hgb 13.0 12.1 L (13.0-17.5) gm/dL Hct 38.6 L 38.4 L (39.0-53.0) % Result Diagrams: 06/17/23 05:41 06/17/23 05:41 Assessment and Plan Assessment: Assessment: Acute lower thoracic pain status post fall Acute traumatic T12 compression fracture 4 weeks status post fall Chronic L1 compression fracture deformity L2-3, L3-4, L4-5, and L5-S1 mild central canal stenosis Lumbar facet arthropathy Lumbar foraminal stenosis Osteoarthritis of the right knee Right knee lower extremity pain, chronic History left total knee arthroplasty Atrial fibrillation Coronary artery disease Diabetes mellitus History DVT History CVA/TIA Hypertension Hyperlipidemia Renal disease History myocardial infarction (1) Compression fracture of L1 lumbar vertebra Current Visit: Yes Status: Acute Code(s): S32.010A - [place]GE COMPRESSION FRACTURE OF FIRST LUMBAR VERTEBRA, INIT SNOMED Code(s): 292510045 (2) Status post fall Current Visit: Yes Status: Acute Code(s): Z91.81 - HISTORY OF FALLING SNOMED Code(s): 170960790 (3) Acute thoracic back pain Current Visit: Yes Status: Acute Code(s): M54.6 - PAIN IN THORACIC SPINE SNOMED Code(s): 246352249 (4) Lumbar spinal stenosis Current Visit: Yes Status: Acute Code(s): M48.061 - SPINAL STENOSIS, LUMBAR REGION WITHOUT NEUROGENIC BRE SNOMED Code(s): 21393725 (5) Neural foraminal stenosis of lumbar spine Current Visit: Yes Status: Acute Code(s): M48.061 - SPINAL STENOSIS, LUMBAR REGION WITHOUT NEUROGENIC BRE SNOMED Code(s): 453514273 (6) Lumbar facet arthropathy Current Visit: Yes Status: Acute Code(s): M47.816 - SPONDYLOSIS W/O MYELOPATHY OR RADICULOPATHY, LUMBAR REGION SNOMED Code(s): 172607437 (7) Osteoarthritis of right knee Current Visit: Yes Status: Acute Code(s): M17.11 - UNILATERAL PRIMARY OSTEOARTHRITIS, RIGHT KNEE SNOMED Code(s): 172986889088377 (8) History of compression fracture of spine Current Visit: Yes Status: Acute Code(s): Z87.81 - PERSONAL HISTORY OF (HEALED) TRAUMATIC FRACTURE SNOMED Code(s): 921381665 (9) History of total left knee replacement Current Visit: Yes Status: Acute Code(s): Z96.652 - PRESENCE OF LEFT ARTIFICIAL KNEE JOINT SNOMED Code(s): 7824651475278 (10) Coronary artery disease Current Visit: Yes Status: Acute Code(s): I25.10 - ATHSCL HEART DISEASE OF [place] CORONARY ARTERY W/O ANG PCTRS SNOMED Code(s): 01378724 (11) Diabetes mellitus Current Visit: Yes Status: Acute Code(s): E11.9 - TYPE 2 DIABETES MELLITUS WITHOUT COMPLICATIONS SNOMED Code(s): 57522556 (12) History of DVT (deep vein thrombosis) Current Visit: Yes Status: Acute Code(s): Z86.718 - PERSONAL HISTORY OF OTHER VENOUS THROMBOSIS AND EMBOLISM SNOMED Code(s): 394841544 (13) Hypertension Current Visit: Yes Status: Acute Code(s): I10 - ESSENTIAL (PRIMARY) HYPERTENSION SNOMED Code(s): 94856299 (14) Hyperlipidemia Current Visit: Yes Status: Acute Code(s): E78.5 - HYPERLIPIDEMIA, UNSPECIFIED SNOMED Code(s): 67687152 (15) Renal disease Current Visit: Yes Status: Acute Code(s): N28.9 - DISORDER OF KIDNEY AND URETER, UNSPECIFIED SNOMED Code(s): 70932586 (16) History of myocardial infarction Current Visit: Yes Status: Acute Code(s): I25.2 - OLD MYOCARDIAL INFARCTION SNOMED Code(s): 463372930 (17) History of TIA (transient ischemic attack) Current Visit: Yes Status: Acute Code(s): Z86.73 - PRSNL HX OF TIA (TIA), AND CEREB INFRC W/O RESID DEFICITS SNOMED Code(s): 506511401 (18) T12 vertebral fracture Current Visit: Yes Status: Acute Code(s): S22.089A - UNSP FRACTURE OF T11-T12 VERTEBRA, INIT FOR CLOS FX SNOMED Code(s): 833757038 (19) Atrial fibrillation Current Visit: No Status: Acute Code(s): I48.91 - UNSPECIFIED ATRIAL FIBRILLATION SNOMED Code(s): 77046402 Plan: Plan: 1. Patient sustained a fall 5 days ago resulting in increased lower thoracic pain. He's had increased difficulty mobilization at home and presented to the emergency department for further evaluation. Imaging showed evidence of T12 and L1 compression fracture deformities. He has a history of chronic L1 compression fracture deformity status post injury years ago. After reviewing of imaging, p hysical examination the patient, and further discussion with the patient, will currently planned to continue with conservative treatment at this time. At this time we'll plan for bracing. A prescription has been written and provided to case management for a [place] TLSO brace. Once this brace is d elivered and fitted appropriately, patient should wear this brace while sitting upright at greater than 45, during increase activities, during ambulation. Brace does not have to or while lying in bed or while bathing. We will plan for patient to work through treatment with physical therapy once brace has been delivered and fitted appropriately. He should not work with physical therapy until his brace is delivered and fitted properly. He may ambulate to the restroom but should avoid any excessive activities with his thoracolumbar spine. No bending, twisting, or lifting activities. No lifting greater than 10 pounds. Brace is delivered and fitted appropriately, he is able to work with physical therapy to increase his mobility and ambulation, and his pain is better controlled, we will plan for discharge home tomorrow. Following discharge, patient may follow-up with Reymundo Hope PA-C or Dr. Tor Zapata at [facility] in 2-3 weeks following discharge. We will also plan to add baclofen 10 mg, 1, 3 times a day, as needed for muscle spasm and hydrocodone 5 mg/325 mg, 1 tab every 6 hours as needed for acute pain. Patient may take his medication as prescribed as needed for pain control. 2. Patient will continue be seen examined by medicine for his multiple her medical diagnoses. Time with Patient: Greater than 30 (Including obtaining history, physical examination, reviewing of imaging, and dictation.)
[2023-06-17] MEDS: HYDROcodone/APAP 5-325MG 1 EACH TAB PO PRN (11:02)
[2023-06-17 12:16] LABS: Glucose,Whole Blood 179 mg/dL (70-110)
[2023-06-17 17:51] LABS: Glucose,Whole Blood 135 mg/dL (70-110)
[2023-06-17] MEDS: APIXABAN 5 MG TAB PO SCH (20:16)
[2023-06-17] MEDS: lisinopriL 20 MG TAB PO SCH (20:16)
[2023-06-17] MEDS: CITALOPRAM HYDROBROMIDE 20 MG TAB PO SCH (20:16)
[2023-06-17 20:21] LABS: Glucose,Whole Blood 222 mg/dL (70-110)
--- NOTE | 2023-06-18 00:28 | P.PN ---
Subjective Progress Note Date: 06/17/23 Patient is a 77-year-old male with a past medical history of atrial fibrillation on anticoagulation with Eliquis, coronary disease stent replacement, hypertension, hyperlipidemia, diabetes type 2 [id number], CKD and prior history of CVAstatus post stent trouble remembering things and prior hist ory of left lower extremity DVT, anxiety/depression presents to ER s/p fall. Patient fell at home about 3 days ago. Patient states that his is disabled due to her recent fall and is helping her to get into the bathtub. While he was putting her in the bathtub is bad knee gave way and fell on his back hitting the top of the tub. Denies any hitting her head. Ever since he has been having low er back pain. Was able to walk with a walker. Denies any tingling sensation numbness down the legs. No bladder or bowel incontinence. Denies any saddle anesthesia. Patient is currently on Eliquis for atrial fibrillation. No complaints of chest pain or shortness of breath. No dizziness or lighthe adedness. On admission CT thoracic and lumbar spine was done showed acute mildly displaced fracture of the T12 vertebral body involving the superior, anterior and inferior endplates. No vertebral body height loss at this time. No retropulsion. Age-indeterminate central compression deformity of the L1 vertebral body with approximately 10% height loss and no retropulsion. Lack of paraspinal edema suggest more remote process. Mild multilevel degenerative disease and facet arthropathy. Hip/pelvic x-ray showed no acute osseous pathology. Mild osteoarthritic changes of both hips. Laboratory data showed WBC 10.8 hemoglobin 13.0 and platelets 233 BUN 44 and creatinine 88 and GFR 35. 06/17/2023 Patient is currently resting in bed. Awake alert and oriented x3. No complaints of chest pain or shortness of breath. Lower back pain is better. Currently on pain management with [place] 5 and ibuprofen. Patient was seen by orthopedic surgery and is recommending back brace.. Also started on baclofen TLSO brace and PT OT after brace has been delivered and fitted appropriately. Patient denies any complaints of chest pain or shortness of breath. No headache or dizziness or lightheadedness. No cough or sputum production. Laboratory data showed BUN 40.1 and creatinine 1.9, WBC 8.3 hemoglobin 12.1 and platelets 211. Patient is tolerating oral diet. Current medications reviewed. Objective - Vital Signs Vital signs: Vital Signs Temp 98.2 F 06/17/23 15:00 Pulse 83 06/17/23 15:00 Resp 17 06/17/23 15:00 BP 94/54 06/17/23 15:00 Pulse Ox 84 L 06/17/23 15:00 FiO2 Intake & Output 06/17/23 06/17/23 06/18/23 06:59 18:59 06:59 Intake Total 118 Output Total 300 300 Balance -300 -182 Intake: Oral 118 Output: Urine 300 300 Other: Voiding Method Toilet # Voids 1 1 # Bowel Movements 1 - Exam PHYSICAL EXAMINATION: Patient is lying in the bed comfortably, no acute distress, awake alert and oriented.. HEENT: Normocephalic. Neck is supple. Pupils reactive. Nostrils clear. Oral cavity is moist. Neck reveals no JVD, carotid bruits, or thyromegaly. CHEST EXAMINATION: Trachea is central. Symmetrical expansion. Lung cornejo clear to auscultation and percussion. CARDIAC: Normal S1, S2 with no gallops. No murmurs ABDOMEN: Soft. Bowel sounds present. Nontender. No organomegaly. No abdominal bruits. Extremities: reveal no edema. No clubbing or cyanosis Neurologically awake, alert, oriented x3 with well-coordinated movements. No focal deficits noted Skin: No rash or skin lesions. Psychiatric: Coperative. Nonsuicidal, Musculoskeletal: No joint swelling or deformity. Mid distal thoracic spine tenderness with paraspinal muscle spasm. - Labs CBC & Chem 7: 06/17/23 05:41 06/17/23 05:41 Labs: Abnormal Lab Results - Last 24 Hours (Table) 06/16/23 06/17/23 06/17/23 Range/Units 20:18 05:41 05:41 RBC 4.13 L (4.40-5.60) X 10*6/uL Hgb 12.1 L (13.0-17.0) d/dL Hct 38.4 L (39.6-50.0) % MCHC 31.5 L (32.0-37.0) d/dL BUN (9.0-27.0) mg/dL Creatinine (0.6-1.5) mg/dL Est GFR (CKD-EPI) (>=60) BUN/Creatinine Ratio (12.00-20.00) Ratio Glucose (70-110) mg/dL POC Glucose (mg/dL) 176 H (70-110) mg/dL Hemoglobin A1c 7.8 H (<=6.0) % 06/17/23 06/17/23 06/17/23 Range/Units 05:41 05:44 12:15 RBC (4.40-5.60) X 10*6/uL Hgb (13.0-17.0) d/dL Hct (39.6-50.0) % MCHC (32.0-37.0) d/dL BUN 41.5 H (9.0-27.0) mg/dL Creatinine 1.9 H (0.6-1.5) mg/dL Est GFR (CKD-EPI) 36 L (>=60) BUN/Creatinine Ratio 21.84 H (12.00-20.00) Ratio Glucose 125 H (70-110) mg/dL POC Glucose (mg/dL) 134 H 179 H (70-110) mg/dL Hemoglobin A1c (<=6.0) % 06/17/23 Range/Units 17:49 RBC (4.40-5.60) X 10*6/uL Hgb (13.0-17.0) d/dL Hct (39.6-50.0) % MCHC (32.0-37.0) d/dL BUN (9.0-27.0) mg/dL Creatinine (0.6-1.5) mg/dL Est GFR (CKD-EPI) (>=60) BUN/Creatinine Ratio (12.00-20.00) Ratio Glucose (70-110) mg/dL POC Glucose (mg/dL) 135 H (70-110) mg/dL Hemoglobin A1c (<=6.0) % Assessment and Plan Assessment: Acute mildly displaced fracture of T12 vertebral body. Status post fall 3 days prior to admission. Currently disease stage III baseline creatinine level around 1.8. Paroxysmal atrial fibrillation/atrial flutter on anticoagulation with Eliquis. Coronary artery history of stent placement History of CVA/TIA with mild memory loss Hypertension Diabetes type 2 [id number] Hyperlipidemia DVT prophylaxis with SCDs currently. Plan: Patient will be continued on pain management with norco, Motrin and lidocaine patches. added baclofen Orthopedic surgery evaluation of the T12 vertebral body fractures.Ordered aspenA LSO brace.No surgical torsion at this time. Start back on home dose of Eliquis and aspirin. Continue with home blood pressure medications including metoprolol. We will continue to follow and further recommendations based on clinical course.
[2023-06-18 06:21] LABS: Glucose,Whole Blood 99 mg/dL (70-110)
[2023-06-18] MEDS: INSULIN ASPART (NovoLOG) 100 UNIT/ML VIAL SQ SCH (06:22)
[2023-06-18] MEDS: PANTOPRAZOLE 40 MG TABLET PO SCH (06:30)
[2023-06-18 07:22] VITALS: BP 106/70; PULSE 55; RESP 17; TEMP 98
--- NOTE | 2023-06-18 08:59 | P.DS ---
Providers Date of admission: 06/16/23 14:13 Expected date of discharge: 06/18/23 Attending physician: Genoveva Zapata Consults: 06/16/23 14:11 Consult Physician Routine Consulting Provider: Vidal Dominguez Consult Reason/Comments: medical management Do you want consulting provider notified?: Yes Primary care physician: Fernando Baker - Discharge Diagnosis(es) (1) Compression fracture of L1 lumbar vertebra Current Visit: Yes Status: Acute (2) Status post fall Current Visit: Yes Status: Acute (3) Acute thoracic back pain Current Visit: Yes Status: Acute (4) Lumbar spinal stenosis Current Visit: Yes Status: Acute (5) Neural foraminal stenosis of lumbar spine Current Visit: Yes Status: Acute (6) Lumbar facet arthropathy Current Visit: Yes Status: Acute (7) Osteoarthritis of right knee Current Visit: Yes Status: Acute (8) History of compression fracture of spine Current Visit: Yes Status: Acute (9) History of total left knee replacement Current Visit: Yes Status: Acute (10) Coronary artery disease Current Visit: Yes Status: Acute (11) Diabetes mellitus Current Visit: Yes Status: Acute (12) History of DVT (deep vein thrombosis) Current Visit: Yes Status: Acute (13) Hypertension Current Visit: Yes Status: Acute (14) Hyperlipidemia Current Visit: Yes Status: Acute (15) Renal disease Current Visit: Yes Status: Acute (16) History of myocardial infarction Current Visit: Yes Status: Acute (17) History of TIA (transient ischemic attack) Current Visit: Yes Status: Acute (18) T12 vertebral fracture Current Visit: Yes Status: Acute (19) Atrial fibrillation Current Visit: No Status: Acute Hospital Course: This is a pleasant 77-year-old male who presented with acute T12 compression fracture deformity with chronic L1 compression fracture deformity status post fall with acute thoracic back pain who is having difficulty with pain control an outpatient setting. He was admitted for further evaluation and treatment. He underwent further imaging modalities which showed evidence of acute T12 compression fracture deformity. A prescription was written prescribed provided to case management to obtain a TLSO brace. This was delivered and fitted appropriately yesterday. I was able to help the patient stand at the bedside and fit his TLSO brace appropriate. He is standing upright with better support of his thoracic spine. He feels the brace is already beneficial in this helped control his pain better. He is able to ambulate to the restroom. Physical therapy is planned to work with the patient today prior to discharge home. Patient feels his pain is adequate controlled with medication and bracing would would like to be discharged home today. Patient does have a walker at home and does not need a walker at discharge. He has been seen by case management who is planning for discharge with home health services. Patient is being discharged home. Patient currently denies any nausea, vomiting, fever, or chills. Patient is eating and voiding freely without difficulty. Patient should wear this TLSO brace brace while sitting upright at greater than 45, during increase activities, during ambulation. Brace does not have to or while lying in bed or while bathing. Patient should avoid excessive bending, lifting, and twisting; no lifting greater than 10 pounds. MAPS has been reviewed today, 06/18/2023, with an Overall Overdose Risk Score of 90. An "Opiod Start Talking" Form has been signed and placed in the patient's chart. A prescription has been written for hydrocodone 5 mg/325 mg, 1 tab, every 6 hours as needed for acute pain, dispensed #28. Prescription was also written for baclofen 10 mg, 1 tab 3 times a day, as needed for muscle spasm, dispensed #90. Medications are sent to the [facility] pharmacy located within the [facility] per request of the patient. Patient's other medical diagnoses includeatrial fibrillation, coronary artery disease, diabetes mellitus, history of DVT, history of CVA/TIA, hyperlipidemia, hypertension, renal disease, and history of myocardial infarction. He will need clearance by medicine prior to discharge home. Physical exam: Patient is awake, alert, and oriented 3 Vital signs stable Good chest excursion with deep inspiration and expiration Examination of the thoracic and lumbar spine reveals skin is intact with no abrasions or lacerations; no erythema, purulence or signs of infection Evidence of of a large bruise extending across the midline over the paraspinals bilaterally at the thoracolumbar junction Significant pain with palpation along the thoracolumbar junction Dorsiflexion, plantarflexion, and extensor hallucis longus positive sustained bilaterally Patient is able to perform hip flexion and knee extension bilaterally independently Some slowness with active range of motion of his right knee No signs or symptoms of DVT; no calf pain No pain with internal and external rotation of the hips bilaterally Patient is able to stand at the bedside TLSO brace is fitted at the bedside Neurovascularly intact Patient Condition at Discharge: Stable Plan - Discharge Summary Discharge Rx Participant: No New Discharge Prescriptions: New HYDROcodone/APAP 5-325MG [[place] 5] 1 each PO Q6HR PRN #28 tab PRN Reason: Pain Baclofen 10 mg PO TID PRN #90 tab PRN Reason: Spasms No Action Multivitamins, Thera [Multivitamin (formulary)] 1 tab PO HS Magnesium Oxide [Mag-Ox] 800 mg PO BID allopurinoL [Zyloprim] 100 mg PO DAILY Nitroglycerin Sl Tabs [Nitrostat] 0.4 mg SUBLINGUAL Q5M PRN #30 tab PRN Reason: Chest Pain lisinopriL [Zestril] 20 mg PO HS #0 Metoprolol Tartrate [Lopressor] 25 mg PO BID 30 Days #60 tablet Prednisolone Acetate/Pf [Prednisolone Acet 1% Eye Drop] 1 drop BOTH EYES DAILY PRN PRN Reason: Inflammation Isosorbide Mononitrate ER [Imdur] 30 mg PO DAILY Furosemide [Lasix] 40 mg PO DAILY metFORMIN HCL ER [Glucophage XR] 500 mg PO HS Fenofibrate,Micronized [Fenofibrate] 67 mg PO DAILY Apixaban [Eliquis] 5 mg PO BID busPIRone HCL 10 mg PO BID Citalopram Hydrobromide [CeleXA] 20 mg PO HS Atorvastatin [Lipitor] 80 mg PO DAILY Albuterol Sulfate [Albuterol Sulfate Hfa] 2 puff INHALATION RT-Q4H PRN PRN Reason: Shortness Of Breath Omeprazole 20 mg PO DAILY Aspirin [Children's Aspirin] 81 mg PO HS ALPRAZolam [Xanax] 0.25 mg PO BID PRN PRN Reason: Anxiety Dulaglutide [Trulicity] 0.75 mg SQ BANEGAS Discharge Medication List Albuterol Sulfate [Albuterol Sulfate Hfa] 2 puff INHALATION RT-Q4H PRN 09/02/21 [History] Apixaban [Eliquis] 5 mg PO BID 09/02/21 [History] Atorvastatin [Lipitor] 80 mg PO DAILY 09/02/21 [History] Citalopram Hydrobromide [CeleXA] 20 mg PO HS 09/02/21 [History] Fenofibrate,Micronized [Fenofibrate] 67 mg PO DAILY 09/02/21 [History] Magnesium Oxide [Mag-Ox] 800 mg PO BID 09/02/21 [History] Multivitamins, Thera [Multivitamin (formulary)] 1 tab PO HS 09/02/21 [History] Omeprazole 20 mg PO DAILY 09/02/21 [History] allopurinoL [Zyloprim] 100 mg PO DAILY 09/02/21 [History] busPIRone HCL 10 mg PO BID 09/02/21 [History] metFORMIN HCL ER [Glucophage XR] 500 mg PO HS 09/02/21 [History] Nitroglycerin Sl Tabs [Nitrostat] 0.4 mg SUBLINGUAL Q5M PRN #30 tab 09/05/21 [Rx] lisinopriL [Zestril] 20 mg PO HS #0 09/05/21 [Rx] Metoprolol Tartrate [Lopressor] 25 mg PO BID 30 Days #60 tablet 10/19/21 [Rx] Aspirin [Children's Aspirin] 81 mg PO HS 06/13/22 [History] ALPRAZolam [Xanax] 0.25 mg PO BID PRN 06/16/23 [History] Dulaglutide [Trulicity] 0.75 mg SQ BANEGAS 06/16/23 [History] Furosemide [Lasix] 40 mg PO DAILY 06/16/23 [History] Isosorbide Mononitrate ER [Imdur] 30 mg PO DAILY 06/16/23 [History] Prednisolone Acetate/Pf [Prednisolone Acet 1% Eye Drop] 1 drop BOTH EYES DAILY PRN 06/16/23 [History] Baclofen 10 mg PO TID PRN #90 tab 06/18/23 [Rx] HYDROcodone/APAP 5-325MG [[place] 5] 1 each PO Q6HR PRN #28 tab 06/18/23 [Rx] Follow up Appointment(s)/Referral(s): Reymundo Hope PAC [PHYSICIAN COMMERCIAL CREDIT OFFICER] - 2 Weeks (Patient may follow-up with Reymundo Hope PA-C or Dr. Tor Zapata at [facility] in 2-3 weeks following discharge. ) Fernando Baker MD [Primary Care Provider] - 1-2 days [facility], [NON-STAFF] - As Needed Jania Woodard [NON-STAFF] - As Needed (TLSO brace) Activity/Diet/Wound Care/Special Instructions: 1. Patient may wear TLSO brace for comfort and support while sitting upright at greater than 45, while working with therapy, and while ambulating 2. Brace does not have to wear the brace while lying in bed or bathing 3. Patient should avoid excessive bending, twisting, and lifting; no lifting greater than 10 pounds Discharge Disposition: HOME WITH HOME HEALTH SERVICES
[2023-06-18] MEDS: FUROSEMIDE 40 MG TAB PO SCH (09:12)
[2023-06-18] MEDS: ATORVASTATIN 80 MG TAB PO SCH (09:12)
[2023-06-18] MEDS: allopurinoL 100 MG TAB PO SCH (09:12)
[2023-06-18] MEDS: LIDOCAINE 5% PATCH TOPICAL SCH (09:12)
[2023-06-18] MEDS: METOPROLOL TARTRATE 25 MG TAB PO SCH (09:12)
[2023-06-18] MEDS: APIXABAN 5 MG TAB PO SCH (09:12)
[2023-06-18] MEDS: busPIRone HCl 10 MG TAB PO SCH (09:13)
[2023-06-18] MEDS: ISOSORBIDE MONONITRATE ER 30 MG TAB.ER.24H PO SCH (09:13)
[2023-06-18] MEDS: FENOFIBRATE 54 MG TAB PO SCH (09:13)
[2023-06-18] MEDS: HYDROcodone/APAP 5-325MG 1 EACH TAB PO PRN (09:47)
[2023-06-18 11:31] LABS: BUN/Creat Ratio 23.67 Ratio (12.00-20.00); Blood Urea Nitrogen 49.7 mg/dL (9.0-27.0); Calcium 9.4 mg/dL (8.7-10.3); Carbon Dioxide 28.1 mmol/L (21.6-31.8); Chloride 103 mmol/L (96-109); Glucose 102 mg/dL (70-110); Potassium 3.7 mmol/L (3.5-5.5); Sodium 143 mmol/L (135-145)
[2023-06-18 11:57] LABS: Glucose,Whole Blood 156 mg/dL (70-110)
--- NOTE | 2023-06-18 21:56 | P.PN ---
Progress Note - Text Progress Note Date: 06/18/23 Patient is a 77-year-old male with a past medical history of atrial fibrillation on anticoagulation with Eliquis, coronary disease stent replacement, hypertension, hyperlipidemia, diabetes type 2 [id number], CKD and prior history of CVAstatus post stent trouble remembering things and prior history of left lower extremity DVT, anxiety/depression presents to ER s/p fall. Patient fell at home about 3 days ago. Patient states that his is disabled due to her recent fall and is helping her to get into the bathtub. While he was putting her in the bathtub is bad knee gave way and fell on his back hitting the top of the tub. Denies any hitting her head. Ever since he has been having lower back pain. Was able to walk with a walker. Denies any tingling sensation numbness down the legs. No bladder or bowel incontinence. Denies any saddle anesthesia. Patient is currently on Eliquis for atrial fibrillation. No complaints of chest pain or shortness of breath. No dizziness or lightheadedness. On admission CT thoracic and lumbar spine was done showed acute mildly displaced fracture of the T12 vertebral body involving the superior, anterior and inferior endplates. No vertebral body height loss at this time. No retropulsion. Age-indeterminate central compression deformity of the L1 vertebral body with approximately 10% height loss and no retropulsion. Lack of paraspinal edema suggest more remote process. Mild multilevel degenerative disease and facet arthropathy. Hip/pelvic x-ray showed no acute osseous pathology. Mild osteoarthritic changes of both hips. Laboratory data showed WBC 10.8 hemoglobin 13.0 and platelets 233 BUN 44 and creatinine 88 and GFR 35. 06/17/2023 Patient is currently resting in bed. Awake alert and oriented x3. No complaints of chest pain or shortness of breath. Lower back pain is better. Currently on pain management with [place] 5 and ibuprofen. Patient was seen by orthopedic surgery and is recommending back brace.. Also started on baclofen TLSO brace and PT OT after brace has been delivered and fitted appropriately. Patient denies any complaints of chest pain or shortness of breath. No headache or dizziness or lightheadedness. No cough or sputum production. Laboratory data showed BUN 40.1 and creatinine 1.9, WBC 8.3 hemoglobin 12.1 and platelets 211. Patient is tolerating oral diet. June 18: Patient feeling well. Pain in the lower back and reported to position. Discussed. Questions answered. Patient being discharged by orthopedics. Patient to follow with PCP. Current medications reviewed. On examination: VITAL SIGNS: [98, 55, 17, 106/70, 94% room air] GENERAL APPEARANCE: Laying in bed, comfortable HEENT: Normal external appearance of nose and ear. Oral cavity normal EYES: Pupils equal. Conjunctiva normal. NECK: JVD not raised. Mass not palpable. RESPIRATORY: Respiratory effort normal. Lungs clear to auscultation. CARDIOVASCULAR: First and second sounds normal. No edema. ABDOMEN: Soft. Liver and spleen not palpable. No tenderness. No mass palpable. PSYCHIATRY: Alert and oriented x3. Mood and affect normal. - Labs CBC & Chem 7: 06/17/23 05:41 06/17/23 05:41 Labs: Abnormal Lab Results - Last 24 Hours (Table) 06/16/23 06/17/23 06/17/23 Range/Units 20:18 05:41 05:41 RBC 4.13 L (4.40-5.60) X 10*6/uL Hgb 12.1 L (13.0-17.0) d/dL Hct 38.4 L (39.6-50.0) % MCHC 31.5 L (32.0-37.0) d/dL BUN (9.0-27.0) mg/dL Creatinine (0.6-1.5) mg/dL Est GFR (CKD-EPI) (>=60) BUN/Creatinine Ratio (12.00-20.00) Ratio Glucose (70-110) mg/dL POC Glucose (mg/dL) 176 H (70-110) mg/dL Hemoglobin A1c 7.8 H (<=6.0) % 06/17/23 06/17/23 06/17/23 Range/Units 05:41 05:44 12:15 RBC (4.40-5.60) X 10*6/uL Hgb (13.0-17.0) d/dL Hct (39.6-50.0) % MCHC (32.0-37.0) d/dL BUN 41.5 H (9.0-27.0) mg/dL Creatinine 1.9 H (0.6-1.5) mg/dL Est GFR (CKD-EPI) 36 L (>=60) BUN/Creatinine Ratio 21.84 H (12.00-20.00) Ratio Glucose 125 H (70-110) mg/dL POC Glucose (mg/dL) 134 H 179 H (70-110) mg/dL Hemoglobin A1c (<=6.0) % 06/17/23 Range/Units 17:49 RBC (4.40-5.60) X 10*6/uL Hgb (13.0-17.0) d/dL Hct (39.6-50.0) % MCHC (32.0-37.0) d/dL BUN (9.0-27.0) mg/dL Creatinine (0.6-1.5) mg/dL Est GFR (CKD-EPI) (>=60) BUN/Creatinine Ratio (12.00-20.00) Ratio Glucose (70-110) mg/dL POC Glucose (mg/dL) 135 H (70-110) mg/dL Hemoglobin A1c (<=6.0) % Assessment and Plan Assessment: Acute mildly displaced fracture of T12 vertebral body. Status post fall 3 days prior to admission. Chronic kidney disease stage III baseline creatinine level around 1.8. Paroxysmal atrial fibrillation/atrial flutter on anticoagulation with Eliquis. Coronary artery history of stent placement History of CVA/TIA with mild memory loss Hypertension Diabetes type 2 [id number] Hyperlipidemia DVT prophylaxis with SCDs currently. Discussed patient. Questions answered. Follow-up with PCP. Thank you
== END 2023-06-18 12:28 | disposition home health service (06) ==
LOC: EC 11:59 → 6NMEDSUR 14:13
PROVIDERS: ADMIT Orthopaedic Surgery Orthopaedic Surgery of the Spine; ATTEND Orthopaedic Surgery Orthopaedic Surgery of the Spine
DX: S32.010A Wedge compression fracture of first lumbar vertebra, initial encounter for closed fracture (principal); S22.089A Unspecified fracture of T11-T12 vertebra, initial encounter for closed fracture; W19.XXXA Unspecified fall, initial encounter; M48.061 Spinal stenosis, lumbar region without neurogenic claudication; I48.0 Paroxysmal atrial fibrillation; J45.909 Unspecified asthma, uncomplicated; I25.10 Atherosclerotic heart disease of native coronary artery without angina pectoris; M25.561 Pain in right knee; M25.562 Pain in left knee; G89.29 Other chronic pain; K21.9 Gastro-esophageal reflux disease without esophagitis; E78.5 Hyperlipidemia, unspecified; F32.A Depression, unspecified; F41.9 Anxiety disorder, unspecified; E11.22 Type 2 diabetes mellitus with diabetic chronic kidney disease; I12.9 Hypertensive chronic kidney disease with stage 1 through stage 4 chronic kidney disease, or unspecified chronic kidney disease; N18.30 Chronic kidney disease, stage 3 unspecified; E11.41 Type 2 diabetes mellitus with diabetic mononeuropathy; I25.2 Old myocardial infarction; M17.11 Unilateral primary osteoarthritis, right knee; Z96.653 Presence of artificial knee joint, bilateral; Z86.73 Personal history of transient ischemic attack (TIA), and cerebral infarction without residual deficits; Z86.718 Personal history of other venous thrombosis and embolism; Z95.5 Presence of coronary angioplasty implant and graft; Z79.01 Long term (current) use of anticoagulants; Z79.899 Other long term (current) drug therapy; Z79.84 Long term (current) use of oral hypoglycemic drugs; Z79.82 Long term (current) use of aspirin
CPT/HCPCS: 96376; 96372 ×2; 96374; 99285; 36415; 97162; 80048 ×3; 85025 ×2; 81003; 83036; 73502; 72128; 72131; G0378 ×3; J2270

== ENCOUNTER 2023-12-04 19:46 | Observation (INO) | payer MEDICARE, OTHER ==
[2023-12-04 20:21] LABS: Basophils # (A) 0.1 k/uL (0-0.2); Basophils % (A) 1 %; Eosinophils # (A) 0.2 k/uL (0-0.7); Eosinophils % (A) 2 %; HCT 48.2 % (39.0-53.0); HGB 14.9 gm/dL (13.0-17.5); Lymphocytes # (A) 1.7 k/uL (1.0-4.8); Lymphocytes % (A) 18 %; MCH 28.5 pg (25.0-35.0); Mean Platelet Volume 8.4; Monocytes # (A) 0.5 k/uL (0-1.0); Monocytes % (A) 5 %; Neutrophils % (A) 73 %; Platelet Count 239 k/uL (150-450); RBC 5.23 m/uL (4.30-5.90); RDW 14.8 % (11.5-15.5); WBC 9.5 k/uL (3.8-10.6)
--- NOTE | 2023-12-04 20:27 | ED ---
SOB HPI - General Source: patient, RN notes reviewed Mode of arrival: wheelchair Limitations: no limitations <Ángela Hirsch - Last Filed: 12/04/23 20:28> <Osito Tovar - Last Filed: 12/16/23 07:02> - General Chief Complaint: Shortness of Breath Stated Complaint: chest pain low heart rate Time Seen by Provider: 12/04/23 20:06 - History of Present Illness Initial Comments: Quick [id number] male presenting with shortness of breath for 1 day. Admits chest discomfort when taking a deep breath. Also noted heart rate was in the 40s today. (Ángela Hirsch) - Related Data Home Medications Medication Instructions Recorded Confirmed Albuterol Sulfate [Albuterol 2 puff INHALATION RT-Q4H PRN 09/02/21 12/05/23 Sulfate Hfa] Apixaban [Eliquis] 5 mg PO BID 09/02/21 12/05/23 Atorvastatin [Lipitor] 80 mg PO DAILY 09/02/21 12/05/23 Citalopram Hydrobromide [CeleXA] 20 mg PO HS 09/02/21 12/05/23 Fenofibrate,Micronized 67 mg PO DAILY 09/02/21 12/05/23 [Fenofibrate] Multivitamins, Thera [Multivitamin 1 tab PO HS 09/02/21 12/05/23 (formulary)] Omeprazole 20 mg PO W/SUPPER 09/02/21 12/05/23 allopurinoL [Zyloprim] 100 mg PO DAILY 09/02/21 12/05/23 busPIRone HCL 10 mg PO BID 09/02/21 12/05/23 metFORMIN HCL ER [Glucophage XR] 500 mg PO HS 09/02/21 12/05/23 Aspirin [Children's Aspirin] 81 mg PO HS 06/13/22 12/05/23 Isosorbide Mononitrate ER [Imdur] 30 mg PO DAILY 06/16/23 12/05/23 Dapagliflozin Propanediol [Farxiga] 5 mg PO DAILY 12/05/23 12/05/23 Previous Rx's Medication Instructions Recorded Nitroglycerin Sl Tabs [Nitrostat] 0.4 mg SUBLINGUAL Q5M PRN #30 tab 09/05/21 amLODIPine [Norvasc] 5 mg PO DAILY #30 tab 12/06/23 lisinopriL [Zestril] 10 mg PO HS #30 tab 12/06/23 Allergies Allergy/AdvReac Type Severity Reaction Status Date / Time No Known Allergies Allergy Verified 12/05/23 07:49 Review of Systems ROS Other: All systems not noted in ROS Statement are negative. <Ángela Hirsch - Last Filed: 12/04/23 20:28> ROS Other: All systems not noted in ROS Statement are negative. <Osito Tovar - Last Filed: 12/16/23 07:02> ROS Statement: Those systems with pertinent positive or pertinent negative responses have been documented in the HPI. Past Medical History Past Medical History: Atrial Fibrillation, Asthma, Coronary Artery Disease (CAD), Chest Pain / Angina, CVA/TIA, Diabetes Mellitus, Deep Vein Thrombosis (DVT), GERD/Reflux, Hyperlipidemia, Hypertension, Myocardial Infarction (VT), Osteoarthritis (OA), Renal Disease, Skin Disorder Additional Past Medical History / Comment(s): Hx CVA 11/30, had stent placed. Some trouble remembering things since. Hx left DVT. 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 Current vision problems and headaches. Psorasis. Gout. Last Myocardial Infarction Date:: 09/02 History of Any Multi-Drug Resistant Organisms: None Reported Past Surgical History: Heart Catheterization With Stent, Orthopedic Surgery Additional Past Surgical History / Comment(s): Left knee surgery, right shoulder surgery, bilateral cataract surgery. eye inplants Past Anesthesia/Blood Transfusion Reactions: No Reported Reaction, Motion Sickness Date of Last Stent Placement:: 11/2020 Past Psychological History: Anxiety, Depression Smoking Status: Never smoker Past Alcohol Use History: Occasional Past Drug Use History: None Reported - Past Family History Mother Family Medical History: Dementia Additional Family Medical History / Comment(s): at 58 years old of Alzheimer disease. Brother(s) Family Medical History: CVA/TIA, Dementia Father Family Medical History: Diabetes Mellitus Additional Family Medical History / Comment(s): of old age at 92 years old. Sister(s) Family Medical History: Cancer, Coronary Artery Disease (CAD) Additional Family Medical History / Comment(s): of lung cancer. <Ángela Hirsch - Last Filed: 12/04/23 20:28> General Exam Limitations: no limitations <Ángela Hirsch - Last Filed: 12/04/23 20:28> Limitations: no limitations General appearance: alert, in no apparent distress Head exam: Present: atraumatic, normocephalic Eye exam: Present: normal appearance. Absent: scleral icterus, conjunctival injection ENT exam: Present: mucous membranes dry Neck exam: Present: normal inspection Respiratory exam: Present: normal lung sounds bilaterally. Absent: respiratory distress, wheezes, rales, rhonchi, stridor, accessory muscle use Cardiovascular Exam: Present: regular rate, normal rhythm, normal heart sounds. Absent: systolic murmur, diastolic murmur, rubs, gallop GI/Abdominal exam: Present: soft. Absent: distended, tenderness, guarding, rebound, rigid, mass Extremities exam: Present: normal inspection, normal capillary refill. Absent: pedal edema, calf tenderness Back exam: Present: normal inspection. Absent: CVA tenderness (R), CVA tenderness (L) Neurological exam: Present: alert Skin exam: Present: warm, dry, intact, normal color. Absent: rash <Osito Tovar - Last Filed: 12/16/23 07:02> - General Exam Comments Initial Comments: Visual Physical Exam Vital signs reviewed General: Well-appearing, nontoxic, no acute distress. Head: Normocephalic, atraumatic Eyes: PERRLA, EOMI ENT: Airway patent Chest: Nonlabored breathing Skin: No visual rash, normal skin tone Neuro: Alert and oriented 3 Musculoskeletal: No gross abnormalities (Ángela Hirsch) Course Vital Signs 12/04/23 12/04/23 12/04/23 19:52 21:04 21:26 Temperature 98.0 F 97.9 F Pulse Rate 80 69 Pulse Rate [ 71 Attendance Secretary ] Pulse Rate [ Sitting] Pulse Rate [ Standing] Respiratory 20 22 Rate Blood Pressure 132/74 132/79 Blood Pressure [Right Arm Sitting] Blood Pressure [Right Arm Standing] Blood Pressure [Right Arm Supine] O2 Sat by Pulse 97 95 Oximetry 12/04/23 12/05/23 12/05/23 23:15 02:00 06:00 Temperature Pulse Rate 60 51 L 57 L Pulse Rate [ Attendance Secretary ] Pulse Rate [ Sitting] Pulse Rate [ Standing] Respiratory 18 18 18 Rate Blood Pressure 132/77 138/73 125/75 Blood Pressure [Right Arm Sitting] Blood Pressure [Right Arm Standing] Blood Pressure [Right Arm Supine] O2 Sat by Pulse 94 L 96 95 Oximetry 12/05/23 12/05/23 12/05/23 07:43 09:59 10:00 Temperature Pulse Rate 60 66 Pulse Rate [ 66 Attendance Secretary ] Pulse Rate [ 68 Sitting] Pulse Rate [ 72 Standing] Respiratory 16 16 16 Rate Blood Pressure 107/60 146/83 Blood Pressure 141/76 [Right Arm Sitting] Blood Pressure 148/76 [Right Arm Standing] Blood Pressure 146/83 [Right Arm Supine] O2 Sat by Pulse 95 98 Oximetry 12/05/23 12/05/23 14:27 16:12 Temperature Pulse Rate 63 90 Pulse Rate [ Attendance Secretary ] Pulse Rate [ Sitting] Pulse Rate [ Standing] Respiratory 18 18 Rate Blood Pressure 123/68 141/79 Blood Pressure [Right Arm Sitting] Blood Pressure [Right Arm Standing] Blood Pressure [Right Arm Supine] O2 Sat by Pulse 96 96 Oximetry Medical Decision Making - Lab Data Result diagrams: 12/04/23 20:13 <Ángela Hirsch - Last Filed: 12/04/23 20:28> - Lab Data Result diagrams: 12/04/23 20:13 12/04/23 20:13 - EKG Data EKG shows normal: sinus rhythm, intervals (Prolonged QRS duration at 182 ms.), QRS complexes (Intraventricular conduction delay) Rate: normal (Rate 74 bpm) <Osito Tovar - Last Filed: 12/16/23 07:02> - Medical Decision Making I completed the quick note portion of this chart signed Ángela Hirsch PA-C (Ángela Hirsch) The patient had chest x-ray that I interpreted as negative for acute infiltrate, pneumothorax, congestive heart failure Patient is 78-year-old man here with chest pain whose initial workup is negative, will admit for serial cardiac enzymes, telemetry monitoring. Was pt. sent in by a medical professional or institution (, PA, UPHOLSTERY MECHANIC, urgent care, hospital, or halfway...) When possible be specific @ -[No] Did you speak to anyone other than the patient for history (EMS, parent, family, police, friend...)? What history was obtained from this source @ -[No] Did you review nursing and triage notes (agree or disagree)? Why? @ -[I reviewed and agree with nursing and triage notes] Were old charts reviewed (outside hosp., previous admission, EMS record, old EKG, old radiological studies, urgent care reports/EKG's, halfway records)? Report findings @ -[Yes, old charts were reviewed] Differential Diagnosis (chest pain, altered mental status, abdominal pain women, abdominal pain men, vaginal bleeding, weakness, fever, dyspnea, syncope, headache, dizziness, GI bleed, back pain, seizure, CVA, palpatations, mental he alth, musculoskeletal)? @ -[Differential Chest Pain: Stable Angina, Unstable Angina, STEMI, NSTEMI Aortic Dissection, Pneumothorax, Musculoskeletal, Esophageal Spasm GERD, Cholecystitis, Pancreatitis, Zoster, this is not meant to be an all-inclusive list. EKG interpreted by me (3pts min.). @ -[I interpreted as above] X-rays interpreted by me (1pt min.). @ -[I interpreted as above CT interpreted by me (1pt min.). @ -[None done] U/S interpreted by me (1pt. min.). @ -[None done] What testing was considered but not performed or refused? (CT, X-rays, U/S, labs)? Why? @ -[None] What meds were considered but not given or refused? Why? @ -[None] Did you discuss the management of the patient with other professionals (professionals i.e. , PA, UPHOLSTERY MECHANIC, lab, RT, psych nurse, psychiatric social worker, dining room attendant cafeteria, teacher, general service officer, dependency case manager)? Give summary @ -[Case discussed with admitting physician and treatment recommendations incorporated Was smoking cessation discussed for >3mins.? @ -[No] Was critical care preformed (if so, how long)? @ -[No] Were there social determinants of health that impacted care today? How? (Homelessness, low income, unemployed, alcoholism, drug addiction, trans portation, low edu. Level, literacy, decrease access to med. care, fci, rehab)? @ -[No] Was there de-escalation of care discussed even if they declined (Discuss DNR or withdrawal of care, Hospice)? DNR status @ -[No] What co-morbidities impacted this encounter? (DM, HTN, Smoking, COPD, CAD, Cance r, CVA, ARF, Chemo, Hep., AIDS, mental health diagnosis, sleep apnea, morbid obesity)? @ -[Diabetes, hypertension, chronic kidney disease, history of atrial fibrillation Was patient admitted / discharged? Hospital course, mention meds given and route, prescriptions, significant lab abnormalities, going to OR and other pertinent info. @ -[As above Undiagnosed new problem with uncertain prognosis? @ -[No] Drug Therapy requiring intensive monitoring for toxicity (Heparin, Nitro, Insulin, Cardizem)? @ -[No] Were any procedures done? @ -[No] Diagnosis/symptom? @ -[Chest pain, acute Elevated troponin, chronic Acute, or Chronic, or Acute on Chronic? @ -[Acute Uncomplicated (without systemic symptoms) or Complicated (systemic symptoms)? @ -[Uncomplicated Side effects of treatment? @ -[No] Exacerbation, Progression, or Severe Exacerbation? @ -[No] Poses a threat to life or bodily function? How? (Chest pain, USA, VT, pneumonia, PE, COPD, DKA, ARF, appy, cholecystitis, CVA, Diverticulitis, Homicidal, Suicidal, threat to staff... and all critical care pts) @ -[Requires further evaluation (Osito Tovar) - Lab Data Lab Results 12/04/23 12/04/23 12/04/23 Range/Units 20:13 20:13 20:13 WBC 9.5 (3.8-10.6) k/uL RBC 5.23 (4.30-5.90) m/uL Hgb 14.9 (13.0-17.5) gm/dL Hct 48.2 (39.0-53.0) % MCV 92.0 (80.0-100.0) fL MCH 28.5 (25.0-35.0) pg MCHC 31.0 (31.0-37.0) g/dL RDW 14.8 (11.5-15.5) % Plt Count 239 (150-450) k/uL MPV 8.4 Neutrophils % 73 % Lymphocytes % 18 % Monocytes % 5 % Eosinophils % 2 % Basophils % 1 % Neutrophils # 7.0 (1.3-7.7) k/uL Lymphocytes # 1.7 (1.0-4.8) k/uL Monocytes # 0.5 (0-1.0) k/uL Eosinophils # 0.2 (0-0.7) k/uL Basophils # 0.1 (0-0.2) k/uL PT 12.0 (10.0-12.5) sec INR 1.1 (<1.2) APTT 25.4 (22.0-30.0) sec Sodium 139 (137-145) mmol/L Potassium 4.4 (3.5-5.1) mmol/L Chloride 103 (98-107) mmol/L Carbon Dioxide 25 (22-30) mmol/L Anion Gap 11 mmol/L BUN 34 H (9-20) mg/dL Creatinine 1.89 H (0.66-1.25) mg/dL Est GFR (CKD-EPI)AfAm 39 (>60 ml/min/1.73 sqM) Est GFR (CKD-EPI)NonAf 33 (>60 ml/min/1.73 sqM) Glucose 261 H (74-99) mg/dL Calcium 9.6 (8.4-10.2) mg/dL Total Bilirubin 0.8 (0.2-1.3) mg/dL AST 26 (17-59) U/L ALT 19 (4-49) U/L Alkaline Phosphatase 88 (38-126) U/L Troponin I (0.000-0.034) ng/mL Total Protein 6.6 (6.3-8.2) g/dL Albumin 3.9 (3.5-5.0) g/dL Influenza Type A (PCR) (Not Detectd) Influenza Type B (PCR) (Not Detectd) RSV (PCR) (Not Detectd) SARS-CoV-2 (PCR) (Not Detectd) 12/04/23 12/04/23 Range/Units 20:13 21:28 WBC (3.8-10.6) k/uL RBC (4.30-5.90) m/uL Hgb (13.0-17.5) gm/dL Hct (39.0-53.0) % MCV (80.0-100.0) fL MCH (25.0-35.0) pg MCHC (31.0-37.0) g/dL RDW (11.5-15.5) % Plt Count (150-450) k/uL MPV Neutrophils % % Lymphocytes % % Monocytes % % Eosinophils % % Basophils % % Neutrophils # (1.3-7.7) k/uL Lymphocytes # (1.0-4.8) k/uL Monocytes # (0-1.0) k/uL Eosinophils # (0-0.7) k/uL Basophils # (0-0.2) k/uL PT (10.0-12.5) sec INR (<1.2) APTT (22.0-30.0) sec Sodium (137-145) mmol/L Potassium (3.5-5.1) mmol/L Chloride (98-107) mmol/L Carbon Dioxide (22-30) mmol/L Anion Gap mmol/L BUN (9-20) mg/dL Creatinine (0.66-1.25) mg/dL Est GFR (CKD-EPI)AfAm (>60 ml/min/1.73 sqM) Est GFR (CKD-EPI)NonAf (>60 ml/min/1.73 sqM) Glucose (74-99) mg/dL Calcium (8.4-10.2) mg/dL Total Bilirubin (0.2-1.3) mg/dL AST (17-59) U/L ALT (4-49) U/L Alkaline Phosphatase (38-126) U/L Troponin I 0.134 H* (0.000-0.034) ng/mL Total Protein (6.3-8.2) g/dL Albumin (3.5-5.0) g/dL Influenza Type A (PCR) Not Detected (Not Detectd) Influenza Type B (PCR) Not Detected (Not Detectd) RSV (PCR) Not Detected (Not Detectd) SARS-CoV-2 (PCR) Not Detected (Not Detectd) Disposition <Ángela Hirsch - Last Filed: 12/04/23 20:28> Is patient prescribed a controlled substance at d/c from ED?: No <Osito Tovar - Last Filed: 12/16/23 07:02> Clinical Impression: Chest pain Disposition: ADMITTED IP TO THIS HOSP Condition: Good
[2023-12-04 20:30] LABS: ALT 19 U/L (4-49); AST 26 U/L (17-59); African American GFR (CKD) 39 (>60 ml/min/1.73 sqM); Albumin 3.9 g/dL (3.5-5.0); Alkaline Phosphatase 88 U/L (38-126); Anion Gap 11 mmol/L; Blood Urea Nitrogen 34 mg/dL (9-20); Calcium 9.6 mg/dL (8.4-10.2); Carbon Dioxide 25 mmol/L (22-30); Chloride 103 mmol/L (98-107); Glucose 261 mg/dL (74-99); Non-African American GFR(CKD) 33 (>60 ml/min/1.73 sqM); Potassium 4.4 mmol/L (3.5-5.1); Sodium 139 mmol/L (137-145); Total Bilirubin 0.8 mg/dL (0.2-1.3); Total Protein 6.6 g/dL (6.3-8.2)
[2023-12-04 20:40] LABS: INR 1.1 (<1.2); Partial Thromboplastin Time 25.4 sec (22.0-30.0)
[2023-12-04] MEDS ORDERED: NITROGLYCERIN SL TABS 0.4 MG TAB SUBLINGUAL PRN (23:03)
[2023-12-04] MEDS ORDERED: ALPRAZolam 0.25 MG TAB PO PRN (23:06)
[2023-12-04] MEDS ORDERED: ALBUTEROL NEBULIZED 2.5 MG/3 ML INHALATION PRN (23:06)
[2023-12-04] MEDS ORDERED: DEXTROSE 50% SYRINGE 50 ML IVP PRN ×2 (23:10)
[2023-12-04] MEDS: SODIUM CHLORIDE 0.9% 1,000 ML IV SCH (23:10)
[2023-12-04 23:24] LABS: Glucose,Whole Blood 122 mg/dL (70-110)
--- NOTE | 2023-12-05 00:21 | XR ---
EXAMINATION TYPE: XR chest 2V DATE OF EXAM: 12/04/2023 9:09 PM CLINICAL INDICATION:Male, 78 years old with history of difficulty breathing; [facility] COMPARISON: Chest x-ray 10/02/2021 TECHNIQUE: XR chest 2V. Frontal and lateral views of the chest.. FINDINGS: Lines/Tubes/Devices: EKG leads overlie the chest. No indwelling lines are seen. Heart/mediastinum: Heart appears mildly enlarged, likely also exaggerated by the low lung volumes. M ediastinum appears stable. Aortic atherosclerotic calcifications. Pulmonary vascularity: Not increased, Lungs/Pleura: Lung volumes are low with crowding of the lung markings and minor bibasilar opacities l ikely on the basis of atelectasis. Mildly blunted appearance of the left costophrenic angle is simila r to before, may reflect pleural reactive changes versus small effusion, and adjacent atelectasis, sc arring, or infiltrate. Otherwise no evidence of lung consolidation or pneumothorax. Small calcified nodular densities suggesting sequela of granulomatous disease. Musculoskeletal: No acute osseous abnormality demonstrated in the limits of the exam. Degenerative c hanges of the spine and shoulders. Other findings: None. IMPRESSION: 1. Stable small left basilar pleural/parenchymal opacity since 09/2021. 2. Low lung volumes, with no acute cardiopulmonary abnormality.
[2023-12-05] MEDS: INSULIN ASPART (NovoLOG) 100 UNIT/ML VIAL SQ SCH (08:04)
[2023-12-05 08:05] LABS: Glucose,Whole Blood 91 mg/dL (70-110)
[2023-12-05] MEDS: FENOFIBRATE 54 MG TAB PO SCH (08:14)
[2023-12-05] MEDS: ISOSORBIDE MONONITRATE ER 30 MG TAB.ER.24H PO SCH (08:14)
[2023-12-05] MEDS: ASPIRIN 325 MG TAB PO SCH (08:15)
[2023-12-05] MEDS: APIXABAN 5 MG TAB PO SCH (08:15)
[2023-12-05] MEDS: allopurinoL 100 MG TAB PO SCH (08:15)
[2023-12-05] MEDS ORDERED: FUROSEMIDE 40 MG TAB PO SCH (09:00)
[2023-12-05 09:10] LABS: Chol/HDL Ratio 3.26 Ratio; LDL Cholesterol,Calculated 62.2 mg/dL (0.0-131.0)
[2023-12-05] MEDS: METOPROLOL TARTRATE 25 MG TAB PO SCH (09:46)
--- NOTE | 2023-12-05 09:52 | P.CRDCN ---
History of Present Illness History of present illness: HISTORY OF PRESENTING ILLNESS Patient is pleasant 78-year-old male with history of paroxysmal atrial fibrillation, asthma, coronary artery disease with 50% RCA disease, FFR normal from 2021 as well as prior history of stenting even before that from 2019, diabetes mellitus type 2, DVT, chronic kidney disease, chronically elevated troponins who presents secondary to lightheaded episodes. Patient follows with Dr. Wellington. He has had a number of issues over the last 2 months including some syncopal episodes. He has been having episodes where he will be standing just looking out a window and then suddenly lost consciousness and therefore underwent workup in the office within echo, stress test and monitor. Apparently this was unrevealing. He did have more significant episode yesterday where he was feeling off, feeling somewhat lightheaded and didn't have any energy. He does have episodes where he will feel like he cannot walk across the room without becoming short of breath and lightheaded. He does have a home monitor and when he checks the monitor that showed heart rates in the 40s and appeared to be atrial fibrillation without obvious P waves however somewhat unclear with home monitoring device. He is taking metoprolol 25 mg twice a day. His blood pressures have been borderline in the 100-120 range. He denies any actual typical chest pain however does have some chest tightness which is not associated with any exertion. By the time he gets the ER he was feeling mildly improved and does have sinus rhythm with right bundle branch block and nonspecific ST changes. His prior echoes have been in the 40-50% range and does have mild aortic stenosis by prior echo from 2021. Most recent workup from office not currently available. Blood work rhythm white blood cell count 9.5, hemoglobin 14.9, creatinine 1.8, troponin 0.13, 0.12, 0.13. REVIEW OF SYSTEMS At the time of my exam: CONSTITUTIONAL: Denies fever or chills. CARDIOVASCULAR: Denies chest pain, +shortness of breath, no orthopnea, PND or palpitations. RESPIRATORY: Denies cough. GASTROINTESTINAL: Denies abdominal pain, diarrhea, constipation, nausea or vomiting. MUSCULOSKELETAL: Denies myalgias. NEUROLOGIC: Denies numbness, tingling or weakness. ENDOCRINE: Denies fatigue, weight change, polydipsia or polyurina. GENITOURINARY: Denies burning, hematuria or urgency with micturation. HEMATOLOGIC: Denies history of anemia or bleeding. PHYSICAL EXAMINATION Vital signs reviewed. CONSTITUTIONAL: No apparent distress. HEENT: Head is normocephalic. Pupils are equal, round. Sclerae anicteric. Mucous membranes of the mouth are moist. No JVD. No carotid bruit. CHEST EXAMINATION: Lungs are clear to auscultation. No chest wall tenderness is noted on palpation or with deep breathing. HEART EXAMINATION: Regular rate and rhythm. S1, S2 heard. No murmurs, gallops or rub. ABDOMEN: Soft, nontender. Positive bowel sounds. EXTREMITIES: 2+ peripheral pulses, no lower extremity edema and no calf tendern ess. NEUROLOGIC EXAMINATION: Patient is awake, alert and oriented x3. ASSESSMENT Lightheaded episodes with bradycardia heart rate in the 40s noted on home monitoring device, likely symptomatic bradycardia exacerbated by metoprolol Recent episodes of syncope Paroxysmal atrial fibrillation, may be symptomatic with intermittent episodes of dyspnea and fatigue and on home monitor appears to have A. fib with slow ventricular rate. currently sinus rhythm Right bundle branch block Atypical chest pain Chronically elevated troponins Chronic kidney disease Coronary artery disease with remote stenting as well as most recent catheterization 2021 with moderate RCA disease, FFR normal Diabetes mellitus type 2 Hypertension, borderline PLAN patient reports has been having more lightheaded episodes and most of his presentation concerning for lightheaded episodes. Most likely symptomatic bradycardia with home monitor showing lower heart rates in the 40s and appears to be A. fib during these episodes. Therefore we will discontinue his metoprolol and if he continues to be symptomatic with bradycardia patient would warrant a permanent pacemaker. Obtain results from most recent workup including echo, stress test and monitor. If no indications for a permanent pacemaker, likely a loop recorder would be recommended. monitor for 24 hours and if no further significant episodes off of metoprolol likely loop recorder tomorrow and discharge tomorrow. Past Medical History Past Medical History: Atrial Fibrillation, Asthma, Coronary Artery Disease (CAD), Chest Pain / Angina, CVA/TIA, Diabetes Mellitus, Deep Vein Thrombosis (DVT), GERD/Reflux, Hyperlipidemia, Hypertension, Myocardial Infarction ([place]), Osteoarthritis (OA), Renal Disease, Skin Disorder Additional Past Medical History / Comment(s): Hx CVA 11/30, had stent placed. Some trouble remembering things since. Hx left DVT. 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 Current vision problems and headaches. Psorasis. Gout. Last Myocardial Infarction Date:: 09/02 History of Any Multi-Drug Resistant Organisms: None Reported Past Surgical History: Heart Catheterization With Stent, Orthopedic Surgery Additional Past Surgical History / Comment(s): Left knee surgery, right shoulder surgery, bilateral cataract surgery. eye inplants Past Anesthesia/Blood Transfusion Reactions: No Reported Reaction, Motion Sickness Date of Last Stent Placement:: 11/2020 Past Psychological History: Anxiety, Depression Smoking Status: Never smoker Past Alcohol Use History: Occasional Past Drug Use History: None Reported - Past Family History Mother Family Medical History: Dementia Additional Family Medical History / Comment(s): at 58 years old of Alzheimer disease. Brother(s) Family Medical History: CVA/TIA, Dementia Father Family Medical History: Diabetes Mellitus Additional Family Medical History / Comment(s): of old age at 92 years old. Sister(s) Family Medical History: Cancer, Coronary Artery Disease (CAD) Additional Family Medical History / Comment(s): of lung cancer. Medications and Allergies Home Medications Medication Instructions Recorded Confirmed Type Albuterol Sulfate [Albuterol 2 puff INHALATION RT-Q4H PRN 09/02/21 12/05/23 History Sulfate Hfa] Apixaban [Eliquis] 5 mg PO BID 09/02/21 12/05/23 History Atorvastatin [Lipitor] 80 mg PO DAILY 09/02/21 12/05/23 History Citalopram Hydrobromide [CeleXA] 20 mg PO HS 09/02/21 12/05/23 History Fenofibrate,Micronized 67 mg PO DAILY 09/02/21 12/05/23 History [Fenofibrate] Multivitamins, Thera [Multivitamin 1 tab PO HS 09/02/21 12/05/23 History (formulary)] Omeprazole 20 mg PO W/SUPPER 09/02/21 12/05/23 History allopurinoL [Zyloprim] 100 mg PO DAILY 09/02/21 12/05/23 History busPIRone HCL 10 mg PO BID 09/02/21 12/05/23 History metFORMIN HCL ER [Glucophage XR] 500 mg PO HS 09/02/21 12/05/23 History Nitroglycerin Sl Tabs [Nitrostat] 0.4 mg SUBLINGUAL Q5M PRN #30 tab 09/05/21 12/05/23 Rx Metoprolol Tartrate [Lopressor] 25 mg PO BID 30 Days #60 tablet 10/19/21 12/05/23 Rx Aspirin [Children's Aspirin] 81 mg PO HS 06/13/22 12/05/23 History Isosorbide Mononitrate ER [Imdur] 30 mg PO DAILY 06/16/23 12/05/23 History Dapagliflozin Propanediol [Farxiga] 5 mg PO DAILY 12/05/23 12/05/23 History lisinopriL [Zestril] 5 mg PO HS 12/05/23 12/05/23 History Allergies Allergy/AdvReac Type Severity Reaction Status Date / Time No Known Allergies Allergy Verified 12/05/23 07:49 Physical Exam Vitals: Vital Signs Temp Pulse Pulse Resp BP Pulse Ox 12/05/23 07:43 60 16 107/60 95 12/05/23 06:00 57 L 18 125/75 95 12/05/23 02:00 51 L 18 138/73 96 12/04/23 23:15 60 18 132/77 94 L 12/04/23 21:26 71 12/04/23 21:04 97.9 F 69 22 132/79 95 12/04/23 19:52 98.0 F 80 20 132/74 97 Intake and Output 12/04/23 12/05/23 12/05/23 22:59 06:59 14:59 Other: Weight 95.254 kg Results 12/04/23 20:13 12/04/23 20:13 Cardiac Enzymes 12/04/23 12/04/23 12/04/23 Range/Units 20:13 20:13 20:13 WBC 9.5 (3.8-10.6) k/uL RBC 5.23 (4.30-5.90) m/uL Hgb 14.9 (13.0-17.5) gm/dL Hct 48.2 (39.0-53.0) % MCV 92.0 (80.0-100.0) fL MCH 28.5 (25.0-35.0) pg MCHC 31.0 (31.0-37.0) g/dL RDW 14.8 (11.5-15.5) % Plt Count 239 (150-450) k/uL MPV 8.4 Neutrophils % 73 % Lymphocytes % 18 % Monocytes % 5 % Eosinophils % 2 % Basophils % 1 % Neutrophils # 7.0 (1.3-7.7) k/uL Lymphocytes # 1.7 (1.0-4.8) k/uL Monocytes # 0.5 (0-1.0) k/uL Eosinophils # 0.2 (0-0.7) k/uL Basophils # 0.1 (0-0.2) k/uL PT 12.0 (10.0-12.5) sec INR 1.1 (<1.2) APTT 25.4 (22.0-30.0) sec Sodium 139 (137-145) mmol/L Potassium 4.4 (3.5-5.1) mmol/L Chloride 103 (98-107) mmol/L Carbon Dioxide 25 (22-30) mmol/L Anion Gap 11 mmol/L BUN 34 H (9-20) mg/dL Creatinine 1.89 H (0.66-1.25) mg/dL Est GFR (CKD-EPI)AfAm 39 (>60 ml/min/1.73 sqM) Est GFR (CKD-EPI)NonAf 33 (>60 ml/min/1.73 sqM) Glucose 261 H (74-99) mg/dL POC Glucose (mg/dL) (70-110) mg/dL POC Glu Emergency Medical Tech ID Estimated Ave Glu mg/dL mg/dL Hemoglobin A1c (<=6.0) % Calcium 9.6 (8.4-10.2) mg/dL Total Bilirubin 0.8 (0.2-1.3) mg/dL AST 26 (17-59) U/L ALT 19 (4-49) U/L Alkaline Phosphatase 88 (38-126) U/L Troponin I (0.000-0.034) ng/mL Total Protein 6.6 (6.3-8.2) g/dL Albumin 3.9 (3.5-5.0) g/dL Triglycerides (0.00-149.00) mg/dL Cholesterol (0.00-200.00) mg/dL LDL Cholesterol, Calc (0.0-131.0) mg/dL VLDL Cholesterol, Calc (5.00-40.00) mg/dL HDL Cholesterol (40.00-60.00) mg/dL Cholesterol/HDL Ratio Ratio Influenza Type A (PCR) (Not Detectd) Influenza Type B (PCR) (Not Detectd) RSV (PCR) (Not Detectd) SARS-CoV-2 (PCR) (Not Detectd) 12/04/23 12/04/23 12/04/23 Range/Units 20:13 21:28 23:15 WBC (3.8-10.6) k/uL RBC (4.30-5.90) m/uL Hgb (13.0-17.5) gm/dL Hct (39.0-53.0) % MCV (80.0-100.0) fL MCH (25.0-35.0) pg MCHC (31.0-37.0) g/dL RDW (11.5-15.5) % Plt Count (150-450) k/uL MPV Neutrophils % % Lymphocytes % % Monocytes % % Eosinophils % % Basophils % % Neutrophils # (1.3-7.7) k/uL Lymphocytes # (1.0-4.8) k/uL Monocytes # (0-1.0) k/uL Eosinophils # (0-0.7) k/uL Basophils # (0-0.2) k/uL PT (10.0-12.5) sec INR (<1.2) APTT (22.0-30.0) sec Sodium (137-145) mmol/L Potassium (3.5-5.1) mmol/L Chloride (98-107) mmol/L Carbon Dioxide (22-30) mmol/L Anion Gap mmol/L BUN (9-20) mg/dL Creatinine (0.66-1.25) mg/dL Est GFR (CKD-EPI)AfAm (>60 ml/min/1.73 sqM) Est GFR (CKD-EPI)NonAf (>60 ml/min/1.73 sqM) Glucose (74-99) mg/dL POC Glucose (mg/dL) (70-110) mg/dL POC Glu Emergency Medical Tech ID Estimated Ave Glu mg/dL mg/dL Hemoglobin A1c (<=6.0) % Calcium (8.4-10.2) mg/dL Total Bilirubin (0.2-1.3) mg/dL AST (17-59) U/L ALT (4-49) U/L Alkaline Phosphatase (38-126) U/L Troponin I 0.134 H* 0.125 H* (0.000-0.034) ng/mL Total Protein (6.3-8.2) g/dL Albumin (3.5-5.0) g/dL Triglycerides (0.00-149.00) mg/dL Cholesterol (0.00-200.00) mg/dL LDL Cholesterol, Calc (0.0-131.0) mg/dL VLDL Cholesterol, Calc (5.00-40.00) mg/dL HDL Cholesterol (40.00-60.00) mg/dL Cholesterol/HDL Ratio Ratio Influenza Type A (PCR) Not Detected (Not Detectd) Influenza Type B (PCR) Not Detected (Not Detectd) RSV (PCR) Not Detected (Not Detectd) SARS-CoV-2 (PCR) Not Detected (Not Detectd) 12/04/23 12/05/23 12/05/23 Range/Units 23:22 03:33 03:33 WBC (3.8-10.6) k/uL RBC (4.30-5.90) m/uL Hgb (13.0-17.5) gm/dL Hct (39.0-53.0) % MCV (80.0-100.0) fL MCH (25.0-35.0) pg MCHC (31.0-37.0) g/dL RDW (11.5-15.5) % Plt Count (150-450) k/uL MPV Neutrophils % % Lymphocytes % % Monocytes % % Eosinophils % % Basophils % % Neutrophils # (1.3-7.7) k/uL Lymphocytes # (1.0-4.8) k/uL Monocytes # (0-1.0) k/uL Eosinophils # (0-0.7) k/uL Basophils # (0-0.2) k/uL PT (10.0-12.5) sec INR (<1.2) APTT (22.0-30.0) sec Sodium (137-145) mmol/L Potassium (3.5-5.1) mmol/L Chloride (98-107) mmol/L Carbon Dioxide (22-30) mmol/L Anion Gap mmol/L BUN (9-20) mg/dL Creatinine (0.66-1.25) mg/dL Est GFR (CKD-EPI)AfAm (>60 ml/min/1.73 sqM) Est GFR (CKD-EPI)NonAf (>60 ml/min/1.73 sqM) Glucose (74-99) mg/dL POC Glucose (mg/dL) 122 H (70-110) mg/dL POC Glu Emergency Medical Tech ID [place] [address] Glu mg/dL mg/dL Hemoglobin A1c (<=6.0) % Calcium (8.4-10.2) mg/dL Total Bilirubin (0.2-1.3) mg/dL AST (17-59) U/L ALT (4-49) U/L Alkaline Phosphatase (38-126) U/L Troponin I 0.138 H* (0.000-0.034) ng/mL Total Protein (6.3-8.2) g/dL Albumin (3.5-5.0) g/dL Triglycerides 119.00 (0.00-149.00) mg/dL Cholesterol 124.00 (0.00-200.00) mg/dL LDL Cholesterol, Calc 62.2 (0.0-131.0) mg/dL VLDL Cholesterol, Calc 23.80 (5.00-40.00) mg/dL HDL Cholesterol 38.00 L (40.00-60.00) mg/dL Cholesterol/HDL Ratio 3.26 Ratio Influenza Type A (PCR) (Not Detectd) Influenza Type B (PCR) (Not Detectd) RSV (PCR) (Not Detectd) SARS-CoV-2 (PCR) (Not Detectd) 12/05/23 12/05/23 Range/Units 03:33 08:03 WBC (3.8-10.6) k/uL RBC (4.30-5.90) m/uL Hgb (13.0-17.5) gm/dL Hct (39.0-53.0) % MCV (80.0-100.0) fL MCH (25.0-35.0) pg MCHC (31.0-37.0) g/dL RDW (11.5-15.5) % Plt Count (150-450) k/uL MPV Neutrophils % % Lymphocytes % % Monocytes % % Eosinophils % % Basophils % % Neutrophils # (1.3-7.7) k/uL Lymphocytes # (1.0-4.8) k/uL Monocytes # (0-1.0) k/uL Eosinophils # (0-0.7) k/uL Basophils # (0-0.2) k/uL PT (10.0-12.5) sec INR (<1.2) APTT (22.0-30.0) sec Sodium (137-145) mmol/L Potassium (3.5-5.1) mmol/L Chloride (98-107) mmol/L Carbon Dioxide (22-30) mmol/L Anion Gap mmol/L BUN (9-20) mg/dL Creatinine (0.66-1.25) mg/dL Est GFR (CKD-EPI)AfAm (>60 ml/min/1.73 sqM) Est GFR (CKD-EPI)NonAf (>60 ml/min/1.73 sqM) Glucose (74-99) mg/dL POC Glucose (mg/dL) 91 (70-110) mg/dL POC Glu Emergency Medical Tech Ra Hernandez [address]imated [address] Glu mg/dL 174 mg/dL Hemoglobin A1c 7.7 H (<=6.0) % Calcium (8.4-10.2) mg/dL Total Bilirubin (0.2-1.3) mg/dL AST (17-59) U/L ALT (4-49) U/L Alkaline Phosphatase (38-126) U/L Troponin I (0.000-0.034) ng/mL Total Protein (6.3-8.2) g/dL Albumin (3.5-5.0) g/dL Triglycerides (0.00-149.00) mg/dL Cholesterol (0.00-200.00) mg/dL LDL Cholesterol, Calc (0.0-131.0) mg/dL VLDL Cholesterol, Calc (5.00-40.00) mg/dL HDL Cholesterol (40.00-60.00) mg/dL Cholesterol/HDL Ratio Ratio Influenza Type A (PCR) (Not Detectd) Influenza Type B (PCR) (Not Detectd) RSV (PCR) (Not Detectd) SARS-CoV-2 (PCR) (Not Detectd) Coagulation 12/04/23 Range/Units 20:13 PT 12.0 (10.0-12.5) sec APTT 25.4 (22.0-30.0) sec Lipids 12/05/23 Range/Units 03:33 Triglycerides 119.00 (0.00-149.00) mg/dL Cholesterol 124.00 (0.00-200.00) mg/dL HDL Cholesterol 38.00 L (40.00-60.00) mg/dL Cholesterol/HDL Ratio 3.26 Ratio CBC 12/04/23 Range/Units 20:13 WBC 9.5 (3.8-10.6) k/uL RBC 5.23 (4.30-5.90) m/uL Hgb 14.9 (13.0-17.5) gm/dL Hct 48.2 (39.0-53.0) % Plt Count 239 (150-450) k/uL Comprehensive Metabolic Panel 12/04/23 Range/Units 20:13 Sodium 139 (137-145) mmol/L Potassium 4.4 (3.5-5.1) mmol/L Chloride 103 (98-107) mmol/L Carbon Dioxide 25 (22-30) mmol/L BUN 34 H (9-20) mg/dL Creatinine 1.89 H (0.66-1.25) mg/dL Glucose 261 H (74-99) mg/dL Calcium 9.6 (8.4-10.2) mg/dL AST 26 (17-59) U/L ALT 19 (4-49) U/L Alkaline Phosphatase 88 (38-126) U/L Total Protein 6.6 (6.3-8.2) g/dL Albumin 3.9 (3.5-5.0) g/dL Current Medications Generic Name Dose Route Start Last Admin Trade Name Freq PRN Reason Stop Dose Admin Albuterol Sulfate 2.5 mg 12/04/23 23:06 Albuterol Nebulized 2.5 Mg/3 Ml INHALATION RT-Q4H PRN Shortness Of Breath Allopurinol 100 mg 12/05/23 09:00 12/05/23 08:15 Allopurinol 100 Mg Tab PO 100 mg DAILY [facility] Administration Apixaban 5 mg 12/05/23 09:00 12/05/23 08:15 Apixaban 5 Mg Tab PO 5 mg BID [facility] Administration Protocol Aspirin 325 mg 12/05/23 09:00 12/05/23 08:15 Aspirin 325 Mg Tab PO 325 mg DAILY [facility] Administration Dextrose/Water 25 ml 12/04/23 23:10 Dextrose 50% Syringe 50 Ml IVP PER PROTOCOL PRN Hypoglycemia Protocol Dextrose/Water 50 ml 12/04/23 23:10 Dextrose 50% Syringe 50 Ml IVP PER PROTOCOL PRN Hypoglycemia Protocol Fenofibrate 54 mg 12/05/23 09:00 12/05/23 08:14 Fenofibrate 54 Mg Tab PO 54 mg DAILY [facility] Administration Sodium Chloride 1,000 mls @ 20 mls/hr 12/04/23 23:15 12/04/23 23:10 Saline 0.9% IV 20 mls/hr .Q24H [facility] Administration Insulin Aspart 0 unit 12/05/23 07:30 12/05/23 08:04 Insulin Aspart (Novolog) 100 Unit/Ml Vial SQ Not Given ACHS [facility] Protocol Isosorbide Mononitrate 30 mg 12/05/23 09:00 12/05/23 08:14 Isosorbide Mononitrate Er 30 Mg Tab.Er.24h PO 30 mg DAILY [facility] Administration Lisinopril 5 mg 12/05/23 21:00 Lisinopril 5 Mg Tab PO HS [facility] Metformin HCl 500 mg 12/05/23 21:00 Metformin 500 Mg Tab PO HS [facility] Metoprolol Tartrate 25 mg 12/05/23 09:00 12/05/23 09:46 Metoprolol Tartrate 25 Mg Tab PO Not Given BID [facility] Nitroglycerin 0.4 mg 12/04/23 23:03 Nitroglycerin Sl Tabs 0.4 Mg Tab SUBLINGUAL Q5M PRN Chest Pain Pantoprazole Sodium 40 mg 12/05/23 17:30 Pantoprazole 40 Mg Tablet PO W/SUPPER [facility] Intake and Output 12/04/23 12/05/23 12/05/23 22:59 06:59 14:59 Other: Weight 95.254 kg 12/04/23 20:13 12/04/23 20:13
[2023-12-05 11:45] LABS: Glucose,Whole Blood 87 mg/dL (70-110)
--- NOTE | 2023-12-05 14:26 | P.HPIM ---
History of Present Illness H&P Date: 12/05/23 Chief Complaint: Tired Patient is a 78-year-old male, follows with PCP Dr. Baker with a past medical history of atrial fibrillation on anticoagulation with Eliquis, coronary disease stent replacement, hypertension, hyperlipidemia, diabetes type 2 [id number], CKD and prior history of CVAstatus post stent trouble remembering things and prior history of left lower extremity DVT, anxiety/depression Patient presents with 2 days of feeling lethargic. Tired. Weak in the legs. Some shortness of breath. No fever or chills. No cough. No chest pain. Home heart monitor showing heart rate in the 40s. 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 . Denies any history of smoking or alcohol. Physical examination: VITAL SIGNS: 97.9, 51, 18, 138 x 73, 94% room air GENERAL: Reclining in bed awake a bit tired appearing. EYES: Pupils equal. Conjunctiva normal. HEENT: External appearance of nose and ears normal, oral cavity grossly normal. NECK: JVD not raised; masses not palpable. HEART: First and second heart sounds are normal; no edema. LUNGS: Respiratory rate normal; clear to auscultation. ABDOMEN: Soft, nontender, liver spleen not palpable, no masses palpable. PSYCH: Alert and oriented x3; mood and affect normal. MUSCULOSKELETAL:No Clubbing/cyanosis;muscles-grossly intact NEUROLOGICAL: Cranial nerves grossly intact; no facial asymmetry, power and sensation grossly intact. LYMPHATICS: No lymph nodes palpable in the axilla and neck INVESTIGATIONS, reviewed in the clinical context: December 04, 2023: White count 9.5 hemoglobin 14.9 platelets 239 sodium 139 potassium 4.4 BUN 34 creatinine 1.89 Troponin I 0.134, 0.125, 0.138 LDL 62.2 EKG tracing personally reviewed by me-possible atrial fibrillation. Intraventricular block. Chest x-ray film personally reviewed by me-cardiomegaly. Mild venous prominence Previous labs: Creatinine 2.1 in June 2023 Assessment and plan: -Symptomatic bradycardia from Lopressor. Lopressor has been held. Telemetry. May need a pacemaker. Cardiology consulted -Troponin leak from underlying chronic kidney disease. No ACS -Chronic kidney disease stage IIIb likely nephrosclerosis -Persistent atrial fibrillation Lopressor held. Eliquis. -CAD with prior history of stent in November 2020 Aspirin. -Intermittent asthma Albuterol as needed -Depression Celexa 20 mg nightly BuSpar 10 mg twice daily -Essential hypertension Lisinopril. Lopressor held. Hyperlipidemia Lipitor 80 mg -Full code Past Medical History Past Medical History: Atrial Fibrillation, Asthma, Coronary Artery Disease (CAD), Chest Pain / Angina, CVA/TIA, Diabetes Mellitus, Deep Vein Thrombosis (DVT), GERD/Reflux, Hyperlipidemia, Hypertension, Myocardial Infarction ([place]), Osteoarthritis (OA), Renal Disease, Skin Disorder Additional Past Medical History / Comment(s): Hx CVA 11/30, had stent placed. Some trouble remembering things since. Hx left DVT. 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 Current vision problems and headaches. Psorasis. Gout. Last Myocardial Infarction Date:: 09/02 History of Any Multi-Drug Resistant Organisms: None Reported Past Surgical History: Heart Catheterization With Stent, Orthopedic Surgery Additional Past Surgical History / Comment(s): Left knee surgery, right shoulder surgery, bilateral cataract surgery. eye inplants Past Anesthesia/Blood Transfusion Reactions: No Reported Reaction, Motion Sic kness Date of Last Stent Placement:: 11/2020 Past Psychological History: Anxiety, Depression Smoking Status: Never smoker Past Alcohol Use History: Occasional Past Drug Use History: None Reported - Past Family History Mother Family Medical History: Dementia Additional Family Medical History / Comment(s): at 58 years old of Alzheimer disease. Brother(s) Family Medical History: CVA/TIA, Dementia Father Family Medical History: Diabetes Mellitus Additional Family Medical History / Comment(s): of old age at 92 years old. Sister(s) Family Medical History: Cancer, Coronary Artery Disease (CAD) Additional Family Medical History / Comment(s): of lung cancer. Medications and Allergies Home Medications Medication Instructions Recorded Confirmed Type Albuterol Sulfate [Albuterol 2 puff INHALATION RT-Q4H PRN 09/02/21 12/05/23 History Sulfate Hfa] Apixaban [Eliquis] 5 mg PO BID 09/02/21 12/05/23 History Atorvastatin [Lipitor] 80 mg PO DAILY 09/02/21 12/05/23 History Citalopram Hydrobromide [CeleXA] 20 mg PO HS 09/02/21 12/05/23 History Fenofibrate,Micronized 67 mg PO DAILY 09/02/21 12/05/23 History [Fenofibrate] Multivitamins, Thera [Multivitamin 1 tab PO HS 09/02/21 12/05/23 History (formulary)] Omeprazole 20 mg PO W/SUPPER 09/02/21 12/05/23 History allopurinoL [Zyloprim] 100 mg PO DAILY 09/02/21 12/05/23 History busPIRone HCL 10 mg PO BID 09/02/21 12/05/23 History metFORMIN HCL ER [Glucophage XR] 500 mg PO HS 09/02/21 12/05/23 History Nitroglycerin Sl Tabs [Nitrostat] 0.4 mg SUBLINGUAL Q5M PRN #30 tab 09/05/21 12/05/23 Rx Metoprolol Tartrate [Lopressor] 25 mg PO BID 30 Days #60 tablet 10/19/21 12/05/23 Rx Aspirin [Children's Aspirin] 81 mg PO HS 06/13/22 12/05/23 History Isosorbide Mononitrate ER [Imdur] 30 mg PO DAILY 06/16/23 12/05/23 History Dapagliflozin Propanediol [Farxiga] 5 mg PO DAILY 12/05/23 12/05/23 History lisinopriL [Zestril] 5 mg PO HS 12/05/23 12/05/23 History Allergies Allergy/AdvReac Type Severity Reaction Status Date / Time No Known Allergies Allergy Verified 12/05/23 07:49 Physical Exam Vitals: Vital Signs Temp Pulse Pulse Pulse Pulse Resp BP 12/05/23 10:00 66 16 146/83 12/05/23 09:59 66 68 72 16 12/05/23 07:43 60 16 107/60 12/05/23 06:00 57 L 18 125/75 12/05/23 02:00 51 L 18 138/73 12/04/23 23:15 60 18 132/77 12/04/23 21:26 71 12/04/23 21:04 97.9 F 69 22 132/79 12/04/23 19:52 98.0 F 80 20 132/74 BP BP BP Pulse Ox 12/05/23 10:00 98 12/05/23 09:59 141/76 148/76 146/83 12/05/23 07:43 95 12/05/23 06:00 95 12/05/23 02:00 96 12/04/23 23:15 94 L 12/04/23 21:26 12/04/23 21:04 95 12/04/23 19:52 97 Intake and Output 12/04/23 12/05/23 12/05/23 22:59 06:59 14:59 Other: Weight 95.254 kg Results CBC & Chem 7: 12/04/23 20:13 12/04/23 20:13 Labs: Abnormal Lab Results - Last 24 Hours (Table) 12/04/23 12/04/23 12/04/23 Range/Units 20:13 20:13 23:15 BUN 34 H (9-20) mg/dL Creatinine 1.89 H (0.66-1.25) mg/dL Glucose 261 H (74-99) mg/dL POC Glucose (mg/dL) (70-110) mg/dL Hemoglobin A1c (<=6.0) % Troponin I 0.134 H* 0.125 H* (0.000-0.034) ng/mL HDL Cholesterol (40.00-60.00) mg/dL 12/04/23 12/05/23 12/05/23 Range/Units 23:22 03:33 03:33 BUN (9-20) mg/dL Creatinine (0.66-1.25) mg/dL Glucose (74-99) mg/dL POC Glucose (mg/dL) 122 H (70-110) mg/dL Hemoglobin A1c (<=6.0) % Troponin I 0.138 H* (0.000-0.034) ng/mL HDL Cholesterol 38.00 L (40.00-60.00) mg/dL 12/05/23 Range/Units 03:33 BUN (9-20) mg/dL Creatinine (0.66-1.25) mg/dL Glucose (74-99) mg/dL POC Glucose (mg/dL) (70-110) mg/dL Hemoglobin A1c 7.7 H (<=6.0) % Troponin I (0.000-0.034) ng/mL HDL Cholesterol (40.00-60.00) mg/dL
[2023-12-05 16:43] LABS: Glucose,Whole Blood 113 mg/dL (70-110)
[2023-12-05] MEDS: PANTOPRAZOLE 40 MG TABLET PO SCH (17:10)
[2023-12-05 20:12] LABS: Glucose,Whole Blood 208 mg/dL (70-110)
[2023-12-05] MEDS ORDERED: lisinopriL 20 MG TAB PO SCH (21:00)
[2023-12-05] MEDS: lisinopriL 5 MG TAB PO SCH (21:31)
[2023-12-05] MEDS: metFORMIN 500 MG TAB PO SCH (21:31)
[2023-12-06 06:29] LABS: Glucose,Whole Blood 116 mg/dL (70-110)
[2023-12-06] MEDS: amLODIPine 5 MG TAB PO SCH (09:49)
[2023-12-06 11:22] LABS: Glucose,Whole Blood 151 mg/dL (70-110)
[2023-12-06 13:29] VITALS: BP 133/62; PULSE 84; RESP 14; TEMP 98.4
[2023-12-06] MEDS ORDERED: lisinopriL 10 MG TAB PO SCH (21:00)
--- NOTE | 2023-12-06 21:26 | P.DS ---
Providers Date of admission: 12/04/23 23:04 Expected date of discharge: 12/06/23 Attending physician: Vidal Dominguez Consults: 12/04/23 23:04 Consult Physician Routine Consulting Provider: Ad Roberts Consult Reason/Comments: chest pain Do you want consulting provider notified?: Yes Primary care physician: Fernando Baker Procedures: Chief Complaint: Tired Patient is a 78-year-old male, follows with PCP Dr. Baker with a past medical history of atrial fibrillation on anticoagulation with Eliquis, coronary disease stent replacement, hypertension, hyperlipidemia, diabetes type 2 [id number], CKD and prior history of CVAstatus post stent trouble remembering things and prior history of left lower extremity DVT, anxiety/depression Patient presents with 2 days of feeling lethargic. Tired. Weak in the legs. Some shortness of breath. No fever or chills. No cough. No chest pain. Home heart monitor showing heart rate in the 40s. December 06, 2023: Bradycardia resolved. Blood pressure running high this morning. Amlodipine 5 mg was added and Zestril increased to 10 mg nightly. Manual blood pressure was better. Patient to follow-up with Dr. Maninder Wellington outpatient. 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 . Denies any history of smoking or alcohol. Physical examination: VITAL SIGNS: 98.4, 84, 14, 135/62, 95% room air GENERAL: Sitting up comfortable EYES: Pupils equal. Conjunctiva normal. HEENT: External appearance of nose and ears normal, oral cavity grossly normal. NECK: JVD not raised; masses not palpable. HEART: First and second heart sounds are normal; no edema. LUNGS: Respiratory rate normal; clear to auscultation. ABDOMEN: Soft, nontender, liver spleen not palpable, no masses palpable. PSYCH: Alert and oriented x3; mood and affect normal. MUSCULOSKELETAL:No Clubbing/cyanosis;muscles-grossly intact INVESTIGATIONS, reviewed in the clinical context: December 04, 2023: White count 9.5 hemoglobin 14.9 platelets 239 sodium 139 potassium 4.4 BUN 34 creatinine 1.89 Troponin I 0.134, 0.125, 0.138 LDL 62.2 EKG tracing personally reviewed by me-possible atrial fibrillation. Intraventricular block. Chest x-ray film personally reviewed by me-cardiomegaly. Mild venous prominence Previous labs: Creatinine 2.1 in June 2023 Assessment and plan: -Symptomatic bradycardia from Lopressor. Lopressor discontinued. Cardiology saw the patient -Troponin leak from underlying chronic kidney disease. No ACS -Chronic kidney disease stage IIIb likely nephrosclerosis -Persistent atrial fibrillation Lopressor stopped. Eliquis. -CAD with prior history of stent in November 2020 Aspirin. -Intermittent asthma Albuterol as needed -Depression Celexa 20 mg nightly BuSpar 10 mg twice daily -Essential hypertension Increased to 10 mg nightly. Amlodipine 5 mg restarted. . Lopressor discontinued Hyperlipidemia Lipitor 80 mg -Full code Disposition: Home Past Medical History Past Medical History: Atrial Fibrillation, Asthma, Coronary Artery Disease (CAD), Chest Pain / Angina, CVA/TIA, Diabetes Mellitus, Deep Vein Thrombosis (DVT), GERD/Reflux, Hyperlipidemia, Hypertension, Myocardial Infarction (NM), Osteoarthritis (OA), Renal Disease, Skin Disorder Additional Past Medical History / Comment(s): Hx CVA 11/30, had stent placed. Some trouble remembering things since. Hx left DVT. 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 Current vision problems and headaches. Psorasis. Gout. Last Myocardial Infarction Date:: 09/02 History of Any Multi-Drug Resistant Organisms: None Reported Past Surgical History: Heart Catheterization With Stent, Orthopedic Surgery Additional Past Surgical History / Comment(s): Left knee surgery, right shoulder surgery, bilateral cataract surgery. eye inplants Past Anesthesia/Blood Transfusion Reactions: No Reported Reaction, Motion Sick ness Date of Last Stent Placement:: 11/2020 Past Psychological History: Anxiety, Depression Smoking Status: Never smoker Past Alcohol Use History: Occasional Past Drug Use History: None Reported Patient Condition at Discharge: Good Plan - Discharge Summary Discharge Rx Participant: Yes New Discharge Prescriptions: New amLODIPine [Norvasc] 5 mg PO DAILY #30 tab lisinopriL [Zestril] 10 mg PO HS #30 tab Continue Multivitamins, Thera [Multivitamin (formulary)] 1 tab PO HS allopurinoL [Zyloprim] 100 mg PO DAILY Nitroglycerin Sl Tabs [Nitrostat] 0.4 mg SUBLINGUAL Q5M PRN #30 tab PRN Reason: Chest Pain Isosorbide Mononitrate ER [Imdur] 30 mg PO DAILY metFORMIN HCL ER [Glucophage XR] 500 mg PO HS Fenofibrate,Micronized [Fenofibrate] 67 mg PO DAILY Apixaban [Eliquis] 5 mg PO BID busPIRone HCL 10 mg PO BID Citalopram Hydrobromide [CeleXA] 20 mg PO HS Atorvastatin [Lipitor] 80 mg PO DAILY Albuterol Sulfate [Albuterol Sulfate Hfa] 2 puff INHALATION RT-Q4H PRN PRN Reason: Shortness Of Breath Omeprazole 20 mg PO W/SUPPER Aspirin [Children's Aspirin] 81 mg PO HS Dapagliflozin Propanediol [Farxiga] 5 mg PO DAILY Discontinued Metoprolol Tartrate [Lopressor] 25 mg PO BID 30 Days #60 tablet lisinopriL [Zestril] 5 mg PO HS Discharge Medication List Albuterol Sulfate [Albuterol Sulfate Hfa] 2 puff INHALATION RT-Q4H PRN 09/02/21 [History] Apixaban [Eliquis] 5 mg PO BID 09/02/21 [History] Atorvastatin [Lipitor] 80 mg PO DAILY 09/02/21 [History] Citalopram Hydrobromide [CeleXA] 20 mg PO HS 09/02/21 [History] Fenofibrate,Micronized [Fenofibrate] 67 mg PO DAILY 09/02/21 [History] Multivitamins, Thera [Multivitamin (formulary)] 1 tab PO HS 09/02/21 [History] Omeprazole 20 mg PO W/SUPPER 09/02/21 [History] allopurinoL [Zyloprim] 100 mg PO DAILY 09/02/21 [History] busPIRone HCL 10 mg PO BID 09/02/21 [History] metFORMIN HCL ER [Glucophage XR] 500 mg PO HS 09/02/21 [History] Nitroglycerin Sl Tabs [Nitrostat] 0.4 mg SUBLINGUAL Q5M PRN #30 tab 09/05/21 [Rx] Aspirin [Children's Aspirin] 81 mg PO HS 06/13/22 [History] Isosorbide Mononitrate ER [Imdur] 30 mg PO DAILY 06/16/23 [History] Dapagliflozin Propanediol [Farxiga] 5 mg PO DAILY 12/05/23 [History] amLODIPine [Norvasc] 5 mg PO DAILY #30 tab 12/06/23 [Rx] lisinopriL [Zestril] 10 mg PO HS #30 tab 12/06/23 [Rx] Follow up Appointment(s)/Referral(s): Fernando Baker MD [Primary Care Provider] - 1-2 days Andrey Wellington MD [STAFF PHYSICIAN] - 6 Weeks Patient Instructions/Handouts: Angina (DC), Syncope (DC) Discharge Disposition: HOME SELF-CARE
--- NOTE | 2023-12-06 21:49 | PN ---
PROGRESS NOTE SUBJECTIVE: Zacarias is a 78-year-old gentleman with history of paroxysmal atrial fibrillation who is admitted to hospital with symptomatic bradycardia. He was evaluated by my associate, Dr. Gore. He has known CAD and prior stenting. Also has history of renal insufficiency. His echocardiogram revealed an ejection fraction of 45% to 50% with mild aortic stenosis. Since being admitted, he is doing well. He had bradycardia, however, his heart rate had improved after stopping the beta-jairo that he was on. This morning his blood pressure is poorly controlled and I am adding amlodipine and increasing the dose of lisinopril. He is also on Eliquis b.i.d. and Imdur along with insulin and Lofibra. PHYSICAL EXAMINATION: VITAL SIGNS: Heart rate is 70 beats per minute, blood pressure is 160/74, respiratory rate is 18, O2 saturation is 96% on room air. NECK: There is no jugular venous distention. CHEST: Reveals good air entry bilaterally. HEART: Reveals first and second heart sounds, an ejection systolic murmur in the aortic area. ABDOMEN: Soft. EXTREMITIES: Did not reveal any edema. Peripheral pulses are felt. ASSESSMENT AND PLAN: 1. Symptomatic bradycardia probably secondary to the beta blockers that the patient is on. 2. Paroxysmal atrial fibrillation. 3. Coronary artery disease, status post angioplasty. PLAN: I am going to hold off on beta blockers. Discharge the patient home with 4 weeks of event monitor and follow up with me in 6 weeks. If the patient has symptomatic bradycardia or if he behaves like tachy-suzanne syndrome in the absence of beta blockers, he will need and would benefit from a permanent pacemaker. MMODL / IJN: [id number] /
== END 2023-12-06 14:07 | disposition home or self-care (01) ==
LOC: EC 19:46 → OBSVTOIN 23:04 → INTOOBSV 23:04 → 3SCARD 23:04 → UNDODISIN 12-06 14:07
PROVIDERS: ADMIT Hospitalist; ATTEND Hospitalist
DX: R00.1 Bradycardia, unspecified (principal); I48.19 Other persistent atrial fibrillation; R07.89 Other chest pain; R79.89 Other specified abnormal findings of blood chemistry; I45.10 Unspecified right bundle-branch block; J45.20 Mild intermittent asthma, uncomplicated; I25.10 Atherosclerotic heart disease of native coronary artery without angina pectoris; K21.9 Gastro-esophageal reflux disease without esophagitis; E78.5 Hyperlipidemia, unspecified; F41.9 Anxiety disorder, unspecified; F32.A Depression, unspecified; I12.9 Hypertensive chronic kidney disease with stage 1 through stage 4 chronic kidney disease, or unspecified chronic kidney disease; N18.32 Chronic kidney disease, stage 3b; E11.22 Type 2 diabetes mellitus with diabetic chronic kidney disease; I25.2 Old myocardial infarction; Z86.718 Personal history of other venous thrombosis and embolism; Z86.73 Personal history of transient ischemic attack (TIA), and cerebral infarction without residual deficits; Z95.5 Presence of coronary angioplasty implant and graft; Z79.01 Long term (current) use of anticoagulants; Z79.899 Other long term (current) drug therapy; Z79.84 Long term (current) use of oral hypoglycemic drugs; Z79.82 Long term (current) use of aspirin
CPT/HCPCS: 99285; 36415; 93005 ×2; 93270; 80061; 80053; 84484 ×2; 85025; 85610; 85730; 83036; 87636; 71046; G0378 ×3

== ENCOUNTER 2024-06-03 17:42 | Inpatient (IN) | payer MEDICARE, OTHER ==
--- NOTE | 2024-06-03 17:47 | ED ---
Chest Pain HPI - General Stated Complaint: chest pain Time Seen by Provider: 06/03/24 17:47 Source: RN notes reviewed, old records reviewed Mode of arrival: ambulatory Limitations: no limitations - History of Present Illness Initial Comments: This is a 78-year-old male to the ER for evaluation today. Patient [facility] evaluation of chest pain chest pain shortness of breath chest tightness history of asthma. Persistent chest pain here in the emergency room and especially to take a deep breath patient is a long and complicated medical history with significant heart history MD Complaint: chest pain -: hour(s) Onset: during rest, during exertion Pain Location: substernal, left chest Pain Radiation: none Severity: moderate Severity scale (1-10): 4 Quality: tightness, sharp Consistency: constant Improves With: nothing Worsens With: nothing Other Symptoms: palpitations Treatments Prior to Arrival: none - Related Data Home Medications Medication Instructions Recorded Confirmed Albuterol Sulfate [Albuterol 2 puff INHALATION RT-Q4H PRN 09/02/21 06/03/24 Sulfate Hfa] Apixaban [Eliquis] 5 mg PO BID 09/02/21 06/03/24 Atorvastatin [Lipitor] 80 mg PO DAILY 09/02/21 06/03/24 Citalopram Hydrobromide [CeleXA] 20 mg PO HS 09/02/21 06/03/24 Fenofibrate,Micronized 67 mg PO DAILY 09/02/21 06/03/24 [Fenofibrate] Omeprazole 20 mg PO HS 09/02/21 06/03/24 allopurinoL [Zyloprim] 100 mg PO DAILY 09/02/21 06/03/24 busPIRone HCL 10 mg PO BID 09/02/21 06/03/24 metFORMIN HCL ER [Glucophage XR] 500 mg PO HS 09/02/21 06/03/24 Aspirin [Children's Aspirin] 81 mg PO HS 06/13/22 06/03/24 Isosorbide Mononitrate ER [Imdur] 30 mg PO DAILY 06/16/23 06/03/24 Dapagliflozin Propanediol [Farxiga] 5 mg PO DAILY 12/05/23 06/03/24 Amiodarone [Cordarone] 200 mg PO BID 06/03/24 06/03/24 Clotrimazole Cream [Lotrimin Cream] 1 applic TOPICAL BID PRN 06/03/24 06/03/24 Furosemide [Lasix] 20 mg PO DAILY 06/03/24 06/03/24 Magnesium Oxide [Mag-Ox] 800 mg PO BID 06/03/24 06/03/24 Previous Rx's Medication Instructions Recorded amLODIPine [Norvasc] 5 mg PO DAILY #30 tab 12/06/23 lisinopriL [Zestril] 10 mg PO HS #30 tab 12/06/23 Allergies Allergy/AdvReac Type Severity Reaction Status Date / Time No Known Allergies Allergy Verified 06/03/24 20:51 Review of Systems ROS Statement: Those systems with pertinent positive or pertinent negative responses have been documented in the HPI. ROS Other: All systems not noted in ROS Statement are negative. EKG Findings - EKG Comments: EKG Findings:: EKG is A-fib 90 QRS 184 QTc 474 - EKG Results: EKG: interpreted by [facility]ON[facility] Past Medical History Past Medical History: Atrial Fibrillation, Asthma, Coronary Artery Disease (CAD), Chest Pain / Angina, CVA/TIA, Diabetes Mellitus, Deep Vein Thrombosis (DVT), GERD/Reflux, Hyperlipidemia, Hypertension, Myocardial Infarction (RI), Osteoarthritis (OA), Renal Disease, Skin Disorder Additional Past Medical History / Comment(s): Hx CVA 11/30, had stent placed. Some trouble remembering things since. Hx left DVT. 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 Current vision problems and headaches. Psorasis. Gout. Last Myocardial Infarction Date:: 09/02 History of Any Multi-Drug Resistant Organisms: None Reported Past Surgical History: Heart Catheterization With Stent, Orthopedic Surgery Additional Past Surgical History / Comment(s): Left knee surgery, right shoulder surgery, bilateral cataract surgery. eye inplants Past Anesthesia/Blood Transfusion Reactions: No Reported Reaction, Motion Sickness Date of Last Stent Placement:: 11/2020 Past Psychological History: Anxiety, Depression Smoking Status: Never smoker Past Alcohol Use History: None Reported Past Drug Use History: None Reported - Past Family History Mother Family Medical History: Dementia Additional Family Medical History / Comment(s): at 58 years old of Alzheimer disease. Brother(s) Family Medical History: CVA/TIA, Dementia Father Family Medical History: Diabetes Mellitus Additional Family Medical History / Comment(s): of old age at 92 years old. Sister(s) Family Medical History: Cancer, Coronary Artery Disease (CAD) Additional Family Medical History / Comment(s): of lung cancer. General Exam General appearance: alert, in no apparent distress, anxious Head exam: Present: atraumatic, normocephalic, normal inspection Eye exam: Present: normal appearance, PERRL, EOMI. Absent: scleral icterus, conjunctival injection, periorbital swelling ENT exam: Present: normal exam, mucous membranes moist Neck exam: Present: normal inspection. Absent: tenderness, meningismus, lymphadenopathy Respiratory exam: Present: normal lung sounds bilaterally. Absent: respiratory distress, wheezes, rales, rhonchi, stridor Cardiovascular Exam: Present: normal rhythm, tachycardia, normal heart sounds. Absent: systolic murmur, diastolic murmur, rubs, gallop, clicks GI/Abdominal exam: Present: soft, normal bowel sounds. Absent: distended, tenderness, guarding, rebound, rigid Extremities exam: Present: normal inspection, full ROM, normal capillary refill. Absent: tenderness, pedal edema, joint swelling, calf tenderness Back exam: Present: normal inspection Neurological exam: Present: alert, oriented X3, CN II-XII intact Psychiatric exam: Present: normal affect, normal mood Skin exam: Present: warm, dry, intact, normal color. Absent: rash Course Vital Signs 06/03/24 06/03/24 06/03/24 17:50 18:55 21:02 Temperature 98.3 F Pulse Rate 114 H 86 89 Respiratory 20 21 18 Rate Blood Pressure 103/70 100/72 97/72 O2 Sat by Pulse 96 96 96 Oximetry 06/03/24 06/03/24 06/03/24 21:33 21:39 23:47 Temperature Pulse Rate 78 80 79 Respiratory 20 Rate Blood Pressure 109/67 O2 Sat by Pulse 94 L Oximetry 06/04/24 06/04/24 06/04/24 03:51 06:31 07:30 Temperature 97.4 F L Pulse Rate 88 86 Respiratory 18 20 Rate Blood Pressure 91/71 96/61 O2 Sat by Pulse 96 96 Oximetry 06/04/24 06/04/24 06/04/24 08:25 08:27 08:34 Temperature Pulse Rate 92 90 Respiratory Rate Blood Pressure O2 Sat by Pulse 97 Oximetry 06/04/24 06/04/24 06/04/24 09:13 12:01 12:11 Temperature Pulse Rate 98 82 90 Respiratory 20 Rate Blood Pressure 107/74 O2 Sat by Pulse 96 Oximetry 06/04/24 06/04/24 06/04/24 13:28 15:37 18:12 Temperature Pulse Rate 82 75 86 Respiratory 20 18 16 Rate Blood Pressure 95/65 87/71 91/60 O2 Sat by Pulse 92 L 95 97 Oximetry 06/04/24 06/04/24 06/05/24 20:00 22:07 00:10 Temperature Pulse Rate 77 71 76 Respiratory 20 18 18 Rate Blood Pressure 88/64 88/73 90/64 O2 Sat by Pulse 97 94 L Oximetry 06/05/24 06/05/24 06/05/24 02:08 06:59 08:00 Temperature Pulse Rate 103 H 101 H 112 H Respiratory 18 18 18 Rate Blood Pressure 101/78 113/75 109/81 O2 Sat by Pulse 95 98 Oximetry 06/05/24 06/05/24 06/05/24 09:49 10:00 12:00 Temperature Pulse Rate 94 98 98 Respiratory 18 Rate Blood Pressure 106/86 O2 Sat by Pulse 97 Oximetry - Reevaluation(s) Reevaluation #1: 06/03/24 20:40 Medical records reviewed Reevaluation #2: 06/03/24 20:40 Patient symptoms unchanged Reevaluation #3: 06/03/24 20:40 Patient informed of results and questions answered Reevaluation #4: Was pt. sent in by a medical professional or institution (, PA, CREDIT ADMINISTRATION SPECIALIST, urgent care, hospital, or skilled nursing...) When possible be specific @ -no Did you speak to anyone other than the patient for history (EMS, parent, family, police, friend...)? What history was obtained from this source @ -no Did you review nursing and triage notes (agree or disagree)? Why? @ -agree Are old charts reviewed (outside hosp., previous admission, EMS record, old EKG, old radiological studies, urgent care reports/EKG's, skilled nursing records)? Report findings @ -yes Differential Diagnosis (chest pain, altered mental status, abdominal pain women, abdominal pain men, vaginal bleeding, weakness, fever, dyspnea, syncope, headache, dizziness, GI bleed, back pain, seizure, CVA, palpatations, mental health, musculoskeletal)? @ -prior EKG interpreted by me (3pts min.). @ -yes X-rays interpreted by me (1pt min.). @ -yes negative for acute disease CT interpreted by me (1pt min.). @ -no U/S interpreted by me (1pt. min.). @ -no What testing was considered but not performed or refused? (CT, X-rays, U/S, labs)? Why? @ -none What meds were considered but not given or refused? Why? @ -none Did you discuss the management of the patient with other professionals (professionals i.e. , PA, CREDIT ADMINISTRATION SPECIALIST, lab, RT, psych nurse, criminal justice social worker, extrusion press adjuster, teacher, chief human resources officer, caser up)? Give summary @ -no Was smoking cessation discussed for >3mins.? @ -no Was critical care preformed (if so, how long)? @ -yes31 Were there social determinants of health that impacted care today? How? (Homelessness, low income, unemployed, alcoholism, drug addiction, transportation, low edu. Level, literacy, decrease access to med. care, long-term, rehab)? @ -none Was there de-escalation of care discussed even if they declined (Discuss DNR or withdrawal of care, Hospice)? DNR status @ -no What co-morbidities impacted this encounter? (DM, HTN, Smoking, COPD, CAD, Cancer, CVA, ARF, Chemo, Hep., AIDS, mental health diagnosis, sleep apnea, morbid obesity)? @ -none Was patient admitted / discharged? Hospital course, mention meds given and route, prescriptions, significant lab abnormalities, going to OR and other pertinent info. @ - 78 male to the ER for evaluation patient presents to the ER today for evaluation of chest pain patient has significant chest pain here in the ER as well as shortness of breath patient will be admitted for further evaluation management Admitted Undiagnosed new problem with uncertain prognosis? @ -no Drug Therapy requiring intensive monitoring for toxicity (Heparin, Nitro, Insulin, Cardizem)? @ -no Were any procedures done? @ -no Diagnosis/symptom? @ -Chest pain with ACS Acute, or Chronic, or Acute on Chronic? @ -Acute Uncomplicated (without systemic symptoms) or Complicated (systemic symptoms)? @ -Complicated Side effects of treatment? @ -no Exacerbation, Progression, or Severe Exacerbation? @ -exacerbation Poses a threat to life or bodily function? How? (Chest pain, [place], RI, pneumonia, PE, COPD, DKA, ARF, appy, cholecystitis, CVA, Diverticulitis, Homicidal, Suicidal, threat to staff... and all critical care pts) @ -yes with chest pain Reevaluation #5: Differential Chest Pain: Stable Angina, Unstable Angina, STEMI, NSTEMI Aortic Dissection, Pneumothorax, Musculoskeletal, Esophageal Spasm GERD, Cholecystitis, Pancreatitis, Zoster, this is not meant to be an all-inclusive list. - Consultations Consultation #1: Spoke with admitting physicians who agreed to admit this patient Chest Pain MDM - MDM 78 male to the ER for evaluation patient presents to the ER today for evaluation of chest pain patient has significant chest pain here in the ER as well as shortness of breath patient will be admitted for further evaluation management Critical Care Time Critical Care Time: Yes Total Critical Care Time: 31 Disposition Clinical Impression: Chest pain, Coronary artery disease, History of myocardial infarction, Acute non-ST elevation myocardial infarction (NSTEMI), Renal disease Disposition: ADMITTED IP TO THIS HOSP Condition: Serious Is patient prescribed a controlled substance at d/c from ED?: No Time of Disposition: 20:40
[2024-06-03 18:29] LABS: Anisocytosis Slight; Basophils % (A) 0 %; Eosinophils # (A) 0.1 k/uL (0-0.7); Eosinophils % (A) 1 %; HCT 42.8 % (39.0-53.0); HGB 13.5 gm/dL (13.0-17.5); Lymphocytes # (A) 1.8 k/uL (1.0-4.8); Lymphocytes % (A) 18 %; MCH 27.9 pg (25.0-35.0); MCHC 31.7 g/dL (31.0-37.0); MCV 88.1 fL (80.0-100.0); Mean Platelet Volume 8.7; Monocytes # (A) 0.5 k/uL (0-1.0); Monocytes % (A) 5 %; Neutrophils # (A) 7.4 k/uL (1.3-7.7); Neutrophils % (A) 74 %; Platelet Count 219 k/uL (150-450); RBC 4.86 m/uL (4.30-5.90); RDW 16.6 % (11.5-15.5)
[2024-06-03 18:35] LABS: ALT 32 U/L (4-49); AST 39 U/L (17-59); African American GFR (CKD) 27 (>60 ml/min/1.73 sqM); Albumin 3.8 g/dL (3.5-5.0); Alkaline Phosphatase 119 U/L (38-126); Anion Gap 11 mmol/L; Blood Urea Nitrogen 62 mg/dL (9-20); Calcium 9.6 mg/dL (8.4-10.2); Carbon Dioxide 23 mmol/L (22-30); Chloride 102 mmol/L (98-107); Glucose 196 mg/dL (74-99); Lipase 543 U/L (23-300); Magnesium 1.8 mg/dL (1.6-2.3); Non-African American GFR(CKD) 23 (>60 ml/min/1.73 sqM); Potassium 4.6 mmol/L (3.5-5.1); Sodium 136 mmol/L (137-145); Total Protein 6.3 g/dL (6.3-8.2)
[2024-06-03 18:37] LABS: INR 1.4 (<1.2); Partial Thromboplastin Time 27.2 sec (22.0-30.0); Prothrombin Time 14.3 sec (10.0-12.5)
[2024-06-03 18:42] LABS: NT-Pro-B-Type Natriuretic Pept 5500 pg/mL
--- NOTE | 2024-06-03 19:14 | XR ---
EXAMINATION TYPE: XR chest 2V DATE OF EXAM: 06/03/2024 6:46 PM CLINICAL INDICATION: Male, 78 years old with history of Chest Pain; H COMPARISON: Chest radiographs from 12/04/2023 TECHNIQUE: XR chest 2V Frontal and lateral views of the chest. FINDINGS: Lungs/Pleura: No evidence of focal consolidation or pneumothorax. Blunting of the costophrenic angles is present. Pulmonary vascularity: Unremarkable. Heart/mediastinum: Cardiomediastinal silhouette is unremarkable. Musculoskeletal: No acute osseous pathology. IMPRESSION: Bilateral pleural effusions with cardiomegaly correlate with serum may be due to [facility], , 06/03/2024 7:12 PM
[2024-06-03] MEDS ORDERED: NALOXONE 0.4 MG/ML 1 ML VIAL IV PRN (20:37)
[2024-06-03] MEDS ORDERED: HYDROmorphone 1 MG/ML 1 ML SYRINGE IVP PRN (20:37)
[2024-06-03] MEDS: SODIUM CHLORIDE 0.9% 1,000 ML IV SCH (21:27)
[2024-06-03] MEDS: IPRATROPIUM-ALBUTEROL 3 ML NEB INHALATION STA (21:32)
[2024-06-04] MEDS: busPIRone HCl 10 MG TAB PO SCH (08:19)
[2024-06-04] MEDS: PANTOPRAZOLE 40 MG/10 ML VIAL IV SCH (08:19)
[2024-06-04] MEDS: FENOFIBRATE 54 MG TAB PO SCH (08:19)
[2024-06-04] MEDS: DAPAGLIFLOZIN PROPANEDIOL 5 MG TABLET PO SCH (08:19)
[2024-06-04] MEDS: ISOSORBIDE MONONITRATE ER 30 MG TAB.ER.24H PO SCH (08:19)
[2024-06-04] MEDS: APIXABAN 5 MG TAB PO SCH (08:19)
[2024-06-04] MEDS: ATORVASTATIN 80 MG TAB PO SCH (08:19)
[2024-06-04] MEDS: MAGNESIUM OXIDE 400 MG TAB PO SCH (08:19)
[2024-06-04] MEDS: IPRATROPIUM-ALBUTEROL 3 ML NEB INHALATION SCH (08:25)
[2024-06-04 10:03] LABS: Anisocytosis Slight; Basophils % (A) 0 %; Eosinophils # (A) 0.2 k/uL (0-0.7); Eosinophils % (A) 2 %; HCT 41.9 % (39.0-53.0); HGB 12.9 gm/dL (13.0-17.5); Hypochromasia Slight; Lymphocytes # (A) 1.8 k/uL (1.0-4.8); Lymphocytes % (A) 22 %; MCH 27.9 pg (25.0-35.0); MCHC 30.8 g/dL (31.0-37.0); MCV 90.5 fL (80.0-100.0); Mean Platelet Volume 8.6; Monocytes # (A) 0.4 k/uL (0-1.0); Monocytes % (A) 5 %; Neutrophils # (A) 5.8 k/uL (1.3-7.7); Neutrophils % (A) 69 %; Platelet Count 180 k/uL (150-450); RBC 4.64 m/uL (4.30-5.90); RDW 16.4 % (11.5-15.5); WBC 8.4 k/uL (3.8-10.6)
[2024-06-04] MEDS: METOPROLOL TARTRATE 25 MG TAB PO SCH (10:17)
[2024-06-04 10:53] LABS: ALT 28 U/L (4-49); AST 34 U/L (17-59); African American GFR (CKD) 29 (>60 ml/min/1.73 sqM); Albumin 3.4 g/dL (3.5-5.0); Alkaline Phosphatase 115 U/L (38-126); Anion Gap 9 mmol/L; Blood Urea Nitrogen 56 mg/dL (9-20); Calcium 9.3 mg/dL (8.4-10.2); Carbon Dioxide 23 mmol/L (22-30); Chloride 106 mmol/L (98-107); Glucose 117 mg/dL (74-99); Magnesium 1.8 mg/dL (1.6-2.3); Non-African American GFR(CKD) 25 (>60 ml/min/1.73 sqM); Potassium 4.3 mmol/L (3.5-5.1); Sodium 138 mmol/L (137-145); Total Bilirubin 1.1 mg/dL (0.2-1.3); Total Protein 5.9 g/dL (6.3-8.2)
[2024-06-04 11:50] LABS: Glucose,Whole Blood 133 mg/dL (70-110)
[2024-06-04] MEDS: INSULIN ASPART (NovoLOG) 100 UNIT/ML VIAL SQ SCH (11:50)
--- NOTE | 2024-06-04 12:00 | P.CRDCN ---
History of Present Illness Consult date: 06/04/24 Consult reason: chest pain History of present illness: This is a 78-year-old male patient of Dr. Juan Wellington with past medical history of paroxysmal atrial fibrillation, coronary artery disease on medical therapy, hypertension, hyperlipidemia, diabetes mellitus type 2, family history of premature coronary artery disease. Patient had a cardioversion done October 2021 and patient states that he has been maintained in a sinus rhythm until recently. Patient had an office visit on 05/19/2024 as he was complaining at that time of intermittent episodes of palpitations for a few days. He was found to be in atrial fibrillation with a right bundle branch block with a controlled ventricular rate at that time. It was recommended the patient's start iron amiodarone which he states he has been taking for the past 2 to 3 weeks. He states that he was very concerned regarding the side effects of amiodarone. Patient states he developed difficulty breathing, feet were swelling and he knew he was in atrial fibrillation. He presented to the hospital with A-fib with controlled ventricular rate. Patient has a history of sinus bradycardia when he is out of atrial fibrillation. Blood pressure 107/74, heart rate 98, pulse ox 96% on 2 L nasal cannula. EKG: Atrial fibrillation with right bundle branch block Chest x-ray: Bilateral pleural effusions with cardiomegaly. Laboratory studies: WBC 8.4, hemoglobin 12.9. Sodium 138, potassium 4.3, BUN 56 and creatinine 2.38. Troponin 0.212, 0.199, 0.207. proBNP 5500. Lipase 543. Home cardiac medications: Amiodarone 200 mg twice daily, amlodipine 5 mg daily, Eliquis 5 mg twice daily, aspirin 81 mg daily, atorvastatin 80 mg daily, Farxiga 5 mg daily, Lasix 20 mg daily, Imdur 30 mg daily, lisinopril 10 mg at bedtime, magnesium oxide 800 mg twice daily. Lexiscan Cardiolite stress test performed 10/04/2023 in the office revealed negative stress test by EKG criteria. Abnormal nuclear scan showing evidence of inferior lateral myocardial infarction with LV systolic dysfunction and EF 40% without evidence of ischemia. Cardiac catheterization performed 09/02/2021 revealed moderate stenosis involving the right coronary artery. Echocardiogram performed in the office on 09/16/2023 revealed EF 45%. Mild aortic regurgitation and moderate aortic stenosis, mild to moderate mitral regurgitation, mild tricuspid regurgitation. PASP 43 mmHg. Review Of Systems: At the time of my exam: CONSTITUTIONAL: Denies fever or chills. HEENT: Denies blurred vision, vision changes, or eye pain. Denies hemoptysis CARDIOVASCULAR: Denies chest pain. Denies orthopnea. Denies PND. Denies palpitations RESPIRATORY: Denies shortness of breath. GASTROINTESTINAL: Denies abdominal pain. Denies nausea or vomiting. HEMATOLOGIC: Denies bleeding disorders. GENITOURINARY: Denies any blood in urine. SKIN: Denies puritis. Denies rash. Physical examination: Gen: This is a 78-year-old male in no acute distress VS: reviewed HEENT: Head is atraumatic, normocephalic. Pupils equal, round. Sclerae is anicteric. NECK: Supple. No JVD. LUNGS: Clear to auscultation. No wheezes or rhonchi. No intercostal retractions. HEART: Irregular rate and rhythm. No murmur. ABDOMEN: Soft No tenderness. EXTREMITIES: No pedal edema. No calf tenderness. NEUROLOGICAL: Patient is awake, alert and oriented x3. Assessment: Permanent atrial fibrillation Coronary artery disease on medical therapy Hypertension Hyperlipidemia Diabetes mellitus type 2 Family history of premature coronary artery disease Plan: Resume patient's home cardiac medications with the following changes Discontinue amiodarone Hold lisinopril Start patient on metoprolol tartrate 25 mg twice daily and keep at a low dose due to bradycardia in sinus rhythm Obtain 2-D echocardiogram and Doppler study to assess cardiac structure and function Further recommendations to follow based upon clinical course Thank you kindly for this consultation. Nurse practitioner note has been reviewed, I agree with documented findings and plan of care. Patient was seen and examined. Past Medical History Past Medical History: Atrial Fibrillation, Asthma, Coronary Artery Disease (CAD), Chest Pain / Angina, CVA/TIA, Diabetes Mellitus, Deep Vein Thrombosis (DVT), GERD/Reflux, Hyperlipidemia, Hypertension, Myocardial Infarction (HI), Osteoarthritis (OA), Renal Disease, Skin Disorder Additional Past Medical History / Comment(s): Hx CVA 11/30, had stent placed. Some trouble remembering things since. Hx left DVT. 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 Current vision problems and headaches. Psorasis. Gout. Last Myocardial Infarction Date:: 09/02 History of Any Multi-Drug Resistant Organisms: None Reported Past Surgical History: Heart Catheterization With Stent, Orthopedic Surgery Additional Past Surgical History / Comment(s): Left knee surgery, right shoulder surgery, bilateral cataract surgery. eye inplants Past Anesthesia/Blood Transfusion Reactions: No Reported Reaction, Karen Chen ss Date of Last Stent Placement:: 11/2020 Past Psychological History: Anxiety, Depression Smoking Status: Never smoker Past Alcohol Use History: None Reported Past Drug Use History: None Reported - Past Family History Mother Family Medical History: Dementia Additional Family Medical History / Comment(s): at 58 years old of Alzheimer disease. Brother(s) Family Medical History: CVA/TIA, Dementia Father Family Medical History: Diabetes Mellitus Additional Family Medical History / Comment(s): of old age at 92 years old. Sister(s) Family Medical History: Cancer, Coronary Artery Disease (CAD) Additional Family Medical History / Comment(s): of lung cancer. Medications and Allergies Home Medications Medication Instructions Recorded Confirmed Type Albuterol Sulfate [Albuterol 2 puff INHALATION RT-Q4H PRN 09/02/21 06/03/24 History Sulfate Hfa] Apixaban [Eliquis] 5 mg PO BID 09/02/21 06/03/24 History Atorvastatin [Lipitor] 80 mg PO DAILY 09/02/21 06/03/24 History Citalopram Hydrobromide [CeleXA] 20 mg PO HS 09/02/21 06/03/24 History Fenofibrate,Micronized 67 mg PO DAILY 09/02/21 06/03/24 History [Fenofibrate] Omeprazole 20 mg PO HS 09/02/21 06/03/24 History allopurinoL [Zyloprim] 100 mg PO DAILY 09/02/21 06/03/24 History busPIRone HCL 10 mg PO BID 09/02/21 06/03/24 History metFORMIN HCL ER [Glucophage XR] 500 mg PO HS 09/02/21 06/03/24 History Aspirin [Children's Aspirin] 81 mg PO HS 06/13/22 06/03/24 History Isosorbide Mononitrate ER [Imdur] 30 mg PO DAILY 06/16/23 06/03/24 History Dapagliflozin Propanediol [Farxiga] 5 mg PO DAILY 12/05/23 06/03/24 History amLODIPine [Norvasc] 5 mg PO DAILY #30 tab 12/06/23 06/03/24 Rx lisinopriL [Zestril] 10 mg PO HS #30 tab 12/06/23 06/03/24 Rx Amiodarone [Cordarone] 200 mg PO BID 06/03/24 06/03/24 History Clotrimazole Cream [Lotrimin Cream] 1 applic TOPICAL BID PRN 06/03/24 06/03/24 History Furosemide [Lasix] 20 mg PO DAILY 06/03/24 06/03/24 History Magnesium Oxide [Mag-Ox] 800 mg PO BID 06/03/24 06/03/24 History Allergies Allergy/AdvReac Type Severity Reaction Status Date / Time No Known Allergies Allergy Verified 06/03/24 20:51 Physical Exam Vitals: Vital Signs Temp Pulse Resp BP Pulse Ox 06/04/24 09:13 98 20 107/74 96 06/04/24 08:34 90 06/04/24 08:27 97 06/04/24 08:25 92 06/04/24 07:30 97.4 F L 06/04/24 06:31 86 20 96/61 96 06/04/24 03:51 88 18 91/71 96 06/03/24 23:47 79 20 109/67 94 L 06/03/24 21:39 80 06/03/24 21:33 78 06/03/24 21:02 89 18 97/72 96 06/03/24 18:55 86 21 100/72 96 06/03/24 17:50 98.3 F 114 H 20 103/70 96 Intake and Output 06/03/24 06/04/24 06/04/24 22:59 06:59 14:59 Other: Weight 92.986 kg Results 06/04/24 09:01 06/04/24 09:01 Cardiac Enzymes 06/03/24 06/03/24 06/03/24 Range/Units 18:10 18:10 21:24 AST 39 (17-59) U/L Troponin I 0.212 H* 0.199 H* (0.000-0.034) ng/mL 06/04/24 Range/Units 00:16 AST (17-59) U/L Troponin I 0.207 H* (0.000-0.034) ng/mL Coagulation 06/03/24 Range/Units 18:10 PT 14.3 H (10.0-12.5) sec APTT 27.2 (22.0-30.0) sec CBC 06/03/24 Range/Units 18:10 WBC 10.0 (3.8-10.6) k/uL RBC 4.86 (4.30-5.90) m/uL Hgb 13.5 (13.0-17.5) gm/dL Hct 42.8 (39.0-53.0) % Plt Count 219 (150-450) k/uL Comprehensive Metabolic Panel 06/03/24 Range/Units 18:10 Sodium 136 L (137-145) mmol/L Potassium 4.6 (3.5-5.1) mmol/L Chloride 102 (98-107) mmol/L Carbon Dioxide 23 (22-30) mmol/L BUN 62 H (9-20) mg/dL Creatinine 2.57 H (0.66-1.25) mg/dL Glucose 196 H (74-99) mg/dL Calcium 9.6 (8.4-10.2) mg/dL AST 39 (17-59) U/L ALT 32 (4-49) U/L Alkaline Phosphatase 119 (38-126) U/L Total Protein 6.3 (6.3-8.2) g/dL Albumin 3.8 (3.5-5.0) g/dL Current Medications Generic Name Dose Route Start Last Admin Trade Name Freq PRN Reason Stop Dose Admin Albuterol/Ipratropium 3 ml 06/04/24 08:00 06/04/24 08:25 Ipratropium-Albuterol 3 Ml Neb INHALATION 3 ml RT-TID [facility] Administration Apixaban 5 mg 06/04/24 09:00 06/04/24 08:19 Apixaban 5 Mg Tab PO 5 mg BID [facility] Administration Protocol Aspirin 81 mg 06/04/24 21:00 Aspirin 81 Mg PO HS [facility] Atorvastatin Calcium 80 mg 06/04/24 09:00 06/04/24 08:19 Atorvastatin 80 Mg Tab PO 80 mg DAILY [facility] Administration Buspirone HCl 10 mg 06/04/24 09:00 06/04/24 08:19 Buspirone Hcl 10 Mg Tab PO 10 mg BID [facility] Administration Citalopram Hydrobromide 20 mg 06/04/24 21:00 Citalopram Hydrobromide 20 Mg Tab PO HS [facility] Dapagliflozin 5 mg 06/04/24 09:00 06/04/24 08:19 Dapagliflozin Propanediol 5 Mg Tablet PO 5 mg DAILY [facility] Administration Fenofibrate 54 mg 06/04/24 09:00 06/04/24 08:19 Fenofibrate 54 Mg Tab PO 54 mg DAILY [facility] Administration Hydromorphone HCl 1 mg 06/03/24 20:37 Hydromorphone 1 Mg/Ml 1 Ml Syringe IVP Q3HR PRN Severe Pain (Scale 7 to 10) Sodium Chloride 1,000 mls @ 75 mls/hr 06/03/24 20:45 06/04/24 09:12 Saline 0.9% IV 75 mls/hr .[id number] [facility] Administration Insulin Aspart 0 unit 06/04/24 12:30 Insulin Aspart (Novolog) 100 Unit/Ml Vial SQ ACHS [facility] Protocol Isosorbide Mononitrate 30 mg 06/04/24 09:00 06/04/24 08:19 Isosorbide Mononitrate Er 30 Mg Tab.Er.24h PO 30 mg DAILY [facility] Administration Lisinopril 10 mg 06/04/24 21:00 Lisinopril 10 Mg Tab PO HS [facility] Magnesium Oxide 800 mg 06/04/24 09:00 06/04/24 08:19 Magnesium Oxide 400 Mg Tab PO 800 mg BID [facility] Administration Naloxone HCl 0.2 mg 06/03/24 20:37 Naloxone 0.4 Mg/Ml 1 Ml Vial IV Q2M PRN Opioid Reversal Pantoprazole Sodium 40 mg 06/04/24 09:00 06/04/24 08:19 Pantoprazole 40 Mg/10 Ml Vial IV 40 mg DAILY [facility] Administration Intake and Output 06/03/24 06/04/24 06/04/24 22:59 06:59 14:59 Other: Weight 92.986 kg 06/03/24 18:10 06/03/24 18:10
[2024-06-04] MEDS ORDERED: HYDROmorphone 2 MG/ML 1 ML SYRINGE IVP PRN (12:20)
--- NOTE | 2024-06-04 15:30 | P.HPIM ---
History of Present Illness History of present illness; 78-year-old male with a past medical history of A- fib (on Eliquis at home), asthma, CAD, diabetes mellitus, history of DVT, history of CVA/TIA, GERD, hyperlipidemia, hypertension, history of OH, OA presents with complaints of chest pain and shortness of breath. Patient characterizes the chest pain as tightness and sharpness, occurring during rest and on exertion, located in the left substernal chest with no radiation, moderate severity (4 out of 10), and constant. Patient also admits to palpitations. Patient reports 2 weeks ago he started taking amiodarone for his atrial fibrillation, and reports he is very concerned with the effects that he had from the amiodarone. Patient reports has had increased shortness of breath and headaches since starting this new medication. Patient reports once the shortness of breath became so severe he decided come to the emergency department to be checked out. Patient also admits to swelling of the lower extremities. Initial lab work from the ER was significant for WBC 10, hemoglobin 13.5, MCV 88.1, sodium 136, creatinine 2.57, glucose 196, troponin 0.199--> 0.207, and lipase 543 EKG done in the ER showed heart rate of 90 bpm, no ST segment elevation or depression seen, no T-wave inversions seen. Atrial fibrillation, interventricular conduction delay, QTc 474. ER CXR: Bilateral pleural effusions cardiomegaly Patient admitted to internal medicine service REVIEW OF SYSTEMS: CONSTITUTIONAL: No fever, no malaise, no fatigue. HEENT: No recent visual problems or hearing problems. Denied any sore throat. CARDIOVASCULAR: Admits to chest pain and palpitations, no syncope. PULMONARY: Admits to shortness of breath, no cough, no hemoptysis. GASTROINTESTINAL: No diarrhea, no nausea, no vomiting, no abdominal pain. NEUROLOGICAL: No headaches, no weakness, no numbness. HEMATOLOGICAL: Denies any bleeding or petechiae. GENITOURINARY: Denies any burning micturition, frequency, or urgency. MUSCULOSKELETAL/RHEUMATOLOGICAL: Denies any joint pain, swelling, or any muscle pain. ENDOCRINE: Denies any polyuria or polydipsia. The rest of the 14-point review of systems is negative. PHYSICAL EXAMINATION: GENERAL: The patient is alert and oriented x3, not in any acute distress. Well developed, well nourished. HEENT: Pupils are round and equally reacting to light. EOMI. No scleral icterus. No conjunctival pallor. Normocephalic, atraumatic. No pharyngeal erythema. No thyromegaly. CARDIOVASCULAR: Irregularly irregular heart rate auscultated PULMONARY: Chest is clear to auscultation b/l, no wheezing or crackles. ABDOMEN: Soft, nontender, nondistended, normoactive bowel sounds. No palpable organomegaly. MUSCULOSKELETAL: No joint swelling or deformity. EXTREMITIES: No cyanosis, clubbing, edema noted from the mid calf down NEUROLOGICAL: Gross neurological examination did not reveal any focal deficits. SKIN: No rashes. Assessment & Plan: Acute: #Atypical chest pain/rule out ACS: Troponin elevation potentially secondary to CKD Cardiology on consult, appreciate further recommendations Continued home Imdur and lisinopril #CKD stage IIIb: Likely nephrosclerosis Baseline creatinine 1.84-2.1, 2.57 on admission Continue IV fluids Continue to monitor #Persistent atrial fibrillation: Continue home Eliquis Discontinue home amiodarone and start metoprolol tartrate 25 mg twice daily, will be kept at a low dose due to patient previously having bradycardia while on metoprolol Echocardiogram and Doppler study ordered to assess cardiac structure and function Continue to monitor Chronic: #CAD with prior history of stent in November 2020: Continue home aspirin #Intermittent asthma: Continue albuterol as needed #Depression: Continue Celexa 20 mg nightly and BuSpar 10 mg twice daily #Essential hypertension: Continue home medications #Hyperlipidemia: Continue home Lipitor 80 mg and fenofibrate 54 mg p.o. daily #Asthma: Changed breathing treatments to as needed F: 75 cc/h E: None N: Heart healthy diet A: Normally ambulates unassisted at home DVT ppx: Eliquis 5 mg p.o. twice daily GI ppx: Protonix 40 mg IV daily CODE STATUS: Full code Dispo: Pending clinical course Burton Abrams MD PGY-1 FM Dictation was produced using [employer] dictation software. please excuse any grammatical, word or spelling errors. Past Medical History Past Medical History: Atrial Fibrillation, Asthma, Coronary Artery Disease (CAD), Chest Pain / Angina, CVA/TIA, Diabetes Mellitus, Deep Vein Thrombosis (DVT), GERD/Reflux, Hyperlipidemia, Hypertension, Myocardial Infarction (OH), Osteoarthritis (OA), Renal Disease, Skin Disorder Additional Past Medical History / Comment(s): Hx CVA 11/30, had stent placed. Some trouble remembering things since. Hx left DVT. 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 Current vision problems and headaches. Psorasis. Gout. Last Myocardial Infarction Date:: 09/02 History of Any Multi-Drug Resistant Organisms: None Reported Past Surgical History: Heart Catheterization With Stent, Orthopedic Surgery Additional Past Surgical History / Comment(s): Left knee surgery, right shoulder surgery, bilateral cataract surgery. eye inplants Past Anesthesia/Blood Transfusion Reactions: No Reported Reaction, Motion Sickness Date of Last Stent Placement:: 11/2020 Past Psychological History: Anxiety, Depression Smoking Status: Never smoker Past Alcohol Use History: None Reported Past Drug Use History: None Reported - Past Family History Mother Family Medical History: Dementia Additional Family Medical History / Comment(s): at 58 years old of Alzheimer disease. Brother(s) Family Medical History: CVA/TIA, Dementia Father Family Medical History: Diabetes Mellitus Additional Family Medical History / Comment(s): of old age at 92 years old. Sister(s) Family Medical History: Cancer, Coronary Artery Disease (CAD) Additional Family Medical History / Comment(s): of lung cancer. Medications and Allergies Home Medications Medication Instructions Recorded Confirmed Type Albuterol Sulfate [Albuterol 2 puff INHALATION RT-Q4H PRN 09/02/21 06/03/24 History Sulfate Hfa] Apixaban [Eliquis] 5 mg PO BID 09/02/21 06/03/24 History Atorvastatin [Lipitor] 80 mg PO DAILY 09/02/21 06/03/24 History Citalopram Hydrobromide [CeleXA] 20 mg PO HS 09/02/21 06/03/24 History Fenofibrate,Micronized 67 mg PO DAILY 09/02/21 06/03/24 History [Fenofibrate] Omeprazole 20 mg PO HS 09/02/21 06/03/24 History allopurinoL [Zyloprim] 100 mg PO DAILY 09/02/21 06/03/24 History busPIRone HCL 10 mg PO BID 09/02/21 06/03/24 History metFORMIN HCL ER [Glucophage XR] 500 mg PO HS 09/02/21 06/03/24 History Aspirin [Children's Aspirin] 81 mg PO HS 06/13/22 06/03/24 History Isosorbide Mononitrate ER [Imdur] 30 mg PO DAILY 06/16/23 06/03/24 History Dapagliflozin Propanediol [Farxiga] 5 mg PO DAILY 12/05/23 06/03/24 History amLODIPine [Norvasc] 5 mg PO DAILY #30 tab 12/06/23 06/03/24 Rx lisinopriL [Zestril] 10 mg PO HS #30 tab 12/06/23 06/03/24 Rx Amiodarone [Cordarone] 200 mg PO BID 06/03/24 06/03/24 History Clotrimazole Cream [Lotrimin Cream] 1 applic TOPICAL BID PRN 06/03/24 06/03/24 History Furosemide [Lasix] 20 mg PO DAILY 06/03/24 06/03/24 History Magnesium Oxide [Mag-Ox] 800 mg PO BID 06/03/24 06/03/24 History Allergies Allergy/AdvReac Type Severity Reaction Status Date / Time No Known Allergies Allergy Verified 06/03/24 20:51 Physical Exam Vitals: Vital Signs Temp Pulse Resp BP Pulse Ox 06/04/24 08:34 90 06/04/24 08:27 97 06/04/24 08:25 92 06/04/24 07:30 97.4 F L 06/04/24 06:31 86 20 96/61 96 06/04/24 03:51 88 18 91/71 96 06/03/24 23:47 79 20 109/67 94 L 06/03/24 21:39 80 06/03/24 21:33 78 06/03/24 21:02 89 18 97/72 96 06/03/24 18:55 86 21 100/72 96 06/03/24 17:50 98.3 F 114 H 20 103/70 96 Intake and Output 06/03/24 06/04/24 06/04/24 22:59 06:59 14:59 Other: Weight 92.986 kg Results CBC & Chem 7: 06/04/24 09:01 06/04/24 09:01 Labs: Abnormal Lab Results - Last 24 Hours (Table) 06/03/24 06/03/24 06/03/24 Range/Units 18:10 18:10 18:10 RDW 16.6 H (11.5-15.5) % PT 14.3 H (10.0-12.5) sec INR 1.4 H (<1.2) Sodium 136 L (137-145) mmol/L BUN 62 H (9-20) mg/dL Creatinine 2.57 H (0.66-1.25) mg/dL Glucose 196 H (74-99) mg/dL Troponin I (0.000-0.034) ng/mL Lipase 543 H (23-300) U/L 06/03/24 06/03/24 06/04/24 Range/Units 18:10 21:24 00:16 RDW (11.5-15.5) % PT (10.0-12.5) sec INR (<1.2) Sodium (137-145) mmol/L BUN (9-20) mg/dL Creatinine (0.66-1.25) mg/dL Glucose (74-99) mg/dL Troponin I 0.212 H* 0.199 H* 0.207 H* (0.000-0.034) ng/mL Lipase (23-300) U/L
[2024-06-04 17:07] LABS: Glucose,Whole Blood 186 mg/dL (70-110)
[2024-06-04] MEDS: ASPIRIN 81 MG PO SCH (20:12)
[2024-06-04] MEDS: CITALOPRAM HYDROBROMIDE 20 MG TAB PO SCH (20:13)
[2024-06-04 20:21] LABS: Glucose,Whole Blood 243 mg/dL (70-110)
[2024-06-04] MEDS ORDERED: metFORMIN 500 MG TAB PO SCH (21:00)
[2024-06-04] MEDS ORDERED: lisinopriL 10 MG TAB PO SCH (21:00)
[2024-06-04] MEDS ORDERED: NON FORMULARY DRUG (Omeprazole [Omeprazole] 20 MG Capsule) PO SCH (21:00)
[2024-06-05 07:47] LABS: Anisocytosis Slight; HCT 39.2 % (39.0-53.0); HGB 12.9 gm/dL (13.0-17.5); MCH 29.3 pg (25.0-35.0); MCHC 32.9 g/dL (31.0-37.0); Mean Platelet Volume 8.5; Platelet Count 205 k/uL (150-450); RDW 16.4 % (11.5-15.5); WBC 9.2 k/uL (3.8-10.6)
[2024-06-05 08:29] LABS: African American GFR (CKD) 29 (>60 ml/min/1.73 sqM); Anion Gap 9 mmol/L; Blood Urea Nitrogen 52 mg/dL (9-20); Calcium 9.1 mg/dL (8.4-10.2); Carbon Dioxide 23 mmol/L (22-30); Chloride 105 mmol/L (98-107); Glucose 103 mg/dL (74-99); Non-African American GFR(CKD) 25 (>60 ml/min/1.73 sqM); Potassium 4.5 mmol/L (3.5-5.1); Sodium 137 mmol/L (137-145)
[2024-06-05] MEDS: PANTOPRAZOLE 40 MG TABLET PO SCH (08:37)
[2024-06-05 08:40] LABS: Glucose,Whole Blood 100 mg/dL (70-110)
--- NOTE | 2024-06-05 09:48 | CA ---
Transthoracic Echo Report Name: Zacarias Nogueira Age: 78 Gender: M : 1945 Exam Date: 06/04/2024 15:57 Exam Location: [facility] Ht (in): 70 Wt (lb): 205 Ordering Physician: Jeanne Roberts Attending/Referring Phys: [id number], Alejandra Customer Contact Representative Mami Edmondson RDCS Procedure CPT: Indications: LVF Cardiac Hx: Technical Quality: Technically difficult study Contrast 1: Definity Total Dose (mL): 2 Contrast 2: Total Dose (mL): MEASUREMENTS (Male / Female) Normal Values 2D ECHO LV Diastolic Diameter PLAX 6.2 cm 4.2 - 5.9 / 3.9 - 5.3 cm LV Systolic Diameter PLAX 5.6 cm IVS Diastolic Thickness 0.9 cm 0.6 - 1.0 / 0.6 - 0.9 cm LVPW Diastolic Thickness 1.1 cm 0.6 - 1.0 / 0.6 - 0.9 cm LV Relative Wall Thickness 0.3 LVOT Diameter 2.0 cm LV Diastolic Volume MOD BP 192.8 cm??? 67 - 155 / 56 - 104 cm??? LV Systolic Volume MOD BP 151.6 cm??? 22 - 58 / 19 - 49 cm??? LV Ejection Fraction MOD BP 21.4 % >= 55 % LV Cardiac Index MOD BP 1312.3 cm???/min???m??? LV Diastolic Volume MOD 4C 198.4 cm??? LV Systolic Volume MOD 4C 172.5 cm??? LV Ejection Fraction MOD 4C 13.1 % LV Cardiac Index MOD 4C 825.5 cm???/min???m??? LV Diastolic Length 4C 9.0 cm LV Systolic Length 4C 8.6 cm LV Diastolic Volume MOD 2C 187.3 cm??? LV Systolic Volume MOD 2C 115.7 cm??? LV Ejection Fraction MOD 2C 38.2 % LV Cardiac Index MOD 2C 2283.1 cm???/min???m??? LV Diastolic Length 2C 9.0 cm LV Systolic Length 2C 7.4 cm LA Volume 162.8 cm??? 18 - 58 / 22 - 52 cm??? LA Volume Index 75.2 cm???/m??? 16 - 28 cm???/m??? Ascending Aorta Diameter 2.9 cm DOPPLER AV Peak Velocity 154.3 cm/s AV Peak Gradient 9.5 mmHg AV Mean Velocity 113.1 cm/s AV Mean Gradient 5.8 mmHg AV Velocity Time Integral 29.3 cm LVOT Peak Velocity 75.1 cm/s LVOT Peak Gradient 2.3 mmHg LVOT Velocity Time Integral 12.7 cm LVOT Stroke Volume 40.6 cm??? LVOT Stroke Volume Index 19.2 ml/m??? LVOT Cardiac Index 1293.5 cm???/min???m??? AV Area Cont Eq vti 1.4 cm??? AV Area Cont Eq pk 1.6 cm??? MR Peak Velocity 384.9 cm/s MR Peak Gradient 59.3 mmHg TR Peak Velocity 247.9 cm/s TR Peak Gradient 24.6 mmHg Right Atrial Pressure 15.0 mmHg Pulmonary Artery Systolic Pressu 39.6 mmHg Right Ventricular Systolic Press 39.6 mmHg PV Peak Velocity 43.5 cm/s PV Peak Gradient 0.8 mmHg FINDINGS Left Ventricle Left ventricular ejection fraction is estimated at 20 %. Mildly increased left ventricular diastolic diameter. Moderately increased left ventricular diastolic volume. Severely increased left ventricular systolic volume. Severely decreased left ventricular ejection fraction. Right Ventricle Severe right ventricular dilatation with severely reduced function. Mild pulmonary hypertension. Right Atrium Severe right atrial dilatation. Left Atrium Severely increased left atrial volume. Moderately increased left atrial area. Mitral Valve Structurally normal mitral valve. No evidence for mitral valve prolapse. No mitral stenosis. Mild mitral regurgitation. Aortic Valve Trileaflet aortic valve. Focal thickening of the aortic valve cusps. No aortic stenosis. Trace aortic regurgitation. Tricuspid Valve Structurally normal tricuspid valve. No tricuspid stenosis. [id number] tricuspid regurgitation. Pulmonic Valve Pulmonic valve not well visualized. No pulmonic stenosis. Trace pulmonic regurgitation. Pericardium No pericardial effusion. Prominent epicardial fat. Aorta Normal size aortic root and proximal ascending aorta. CONCLUSIONS Enlarged left ventricle with the global decrease in contractility and estimated ejection fraction of less than 25%. It is actually four-chamber enlargement. Structurally normal-appearing mitral valve with mild regurgitation. Mild to moderate tricuspid regurgitation. Right-sided pressures are mildly elevated. No pericardial effusion. Aortic valve sclerosis and mitral valve calcification noted. No significant gradient across aortic Previewed by: Dr. Keely Richter MD (Electronically Signed) Final Date: 05 June 2024 09:47
[2024-06-05] MEDS: IPRATROPIUM-ALBUTEROL 3 ML NEB INHALATION PRN (09:49)
--- NOTE | 2024-06-05 10:35 | P.PN ---
Subjective Progress Note Date: 06/05/24 Consult reason: chest pain History of present illness: This is a 78-year-old male patient of Dr. Juan Wellington with past medical history of paroxysmal atrial fibrillation, coronary artery disease on medical therapy, hypertension, hyperlipidemia, diabetes mellitus type 2, family history of premature coronary artery disease. Patient had a cardioversion done October 2021 and patient states that he has been maintained in a sinus rhythm until recently. Patient had an office visit on 05/19/2024 as he was complaining at that time of intermittent episodes of palpitations for a few days. He was found to be in atrial fibrillation with a right bundle branch block with a controlled ventricular rate at that time. It was recommended the patient's start iron amio darone which he states he has been taking for the past 2 to 3 weeks. He states that he was very concerned regarding the side effects of amiodarone. Patient states he developed difficulty breathing, feet were swelling and he knew he was in atrial fibrillation. He presented to the hospital with A-fib with controlled ventricular rate. Patient has a history of sinus bradycardia when he is out of atrial fibrillation. Blood pressure 107/74, heart rate 98, pulse ox 96% on 2 L nasal cannula. EKG: Atrial fibrillation with right bundle branch block Chest x-ray: Bilateral pleural effusions with cardiomegaly. Laboratory studies: WBC 8.4, hemoglobin 12.9. Sodium 138, potassium 4.3, BUN 56 and creatinine 2.38. Troponin 0.212, 0.199, 0.207. proBNP 5500. Lipase 543. Home cardiac medications: Amiodarone 200 mg twice daily, amlodipine 5 mg daily, Eliquis 5 mg twice daily, aspirin 81 mg daily, atorvastatin 80 mg daily, Farxiga 5 mg daily, Lasix 20 mg daily, Imdur 30 mg daily, lisinopril 10 mg at bedtime, magnesium oxide 800 mg twice daily. Lexiscan Cardiolite stress test performed 10/04/2023 in the office revealed negative stress test by EKG criteria. Abnormal nuclear scan showing evidence of inferior lateral myocardial infarction with LV systolic dysfunction and EF 40% without evidence of ischemia. Cardiac catheterization performed 09/02/2021 revealed moderate stenosis involving the right coronary artery. Echocardiogram performed in the office on 09/16/2023 revealed EF 45%. Mild aortic regurgitation and moderate aortic stenosis, mild to moderate mitral regurgitation, mild tricuspid regurgitation. PASP 43 mmHg. 06/05 Patient is seen and examined in the emergency center waiting for a bed on the cardiac stepdown unit. Yesterday, amiodarone was discontinued and lisinopril placed on hold. This morning blood pressure 113/75, heart rate is in the 100, pulse ox 95% on room air. Telemetry is atrial fibrillation. Patient is complaining of wheezing today. No chest pain no palpitations. Echocardiogram reveals EF of less than 25%. Four-chamber enlargement. Mild mild atrial regurgitation. Mild to moderate tricuspid regurgitation, right- sided pressures are mildly elevated. No pericardial effusion. Aortic valve sclerosis with mitral valve calcification. No significant gradient across the aorta. Physical examination: Gen: This is a 78-year-old male in no acute distress VS: reviewed HEENT: Head is atraumatic, normocephalic. Pupils equal, round. Sclerae is anicteric. NECK: Supple. No JVD. LUNGS: Bilateral rhonchi. No intercostal retractions. HEART: Irregular rhythm ABDOMEN: Soft No tenderness. EXTREMITIES: No pedal edema. No calf tenderness. NEUROLOGICAL: Patient is awake, alert and oriented x3. Assessment: Permanent atrial fibrillation, rate controlled therapy Flat troponin elevation most likely secondary to hypoperfusion Cardiomyopathy Coronary artery disease on medical therapy Hypertension Hyperlipidemia Diabetes mellitus type 2 Family history of premature coronary artery disease Plan: Continue current cardiac medications: Aspirin 81 mg daily, Eliquis 5 mg twice daily, atorvastatin 80 mg at bedtime, fenofibrate Discontinue amiodarone--discontinue at discharge Hold lisinopril and Imdur--discontinue at discharge Discontinue IV fluids Transition metoprolol tartrate to metoprolol succinate 25 mg daily Further recommendations to follow based upon clinical course Nurse practitioner note has been reviewed, I agree with documented findings and plan of care. Patient was seen and examined. Objective - Vital Signs Vital signs: Vital Signs Temp 97.4 F L 06/04/24 07:30 Pulse 101 H 06/05/24 06:59 Resp 18 06/05/24 06:59 BP 113/75 06/05/24 06:59 Pulse Ox 95 06/05/24 02:08 FiO2 - Labs CBC & Chem 7: 06/05/24 07:35 06/05/24 07:35 Labs: Abnormal Lab Results - Last 24 Hours (Table) 06/04/24 06/04/24 06/04/24 Range/Units 09:01 09:01 11:49 Hgb 12.9 L (13.0-17.5) gm/dL MCHC 30.8 L (31.0-37.0) g/dL RDW 16.4 H (11.5-15.5) % BUN 56 H (9-20) mg/dL Creatinine 2.38 H (0.66-1.25) mg/dL Glucose 117 H (74-99) mg/dL POC Glucose (mg/dL) 133 H (70-110) mg/dL Total Protein 5.9 L (6.3-8.2) g/dL Albumin 3.4 L (3.5-5.0) g/dL 06/04/24 06/04/24 Range/Units 17:06 20:19 Hgb (13.0-17.5) gm/dL MCHC (31.0-37.0) g/dL RDW (11.5-15.5) % BUN (9-20) mg/dL Creatinine (0.66-1.25) mg/dL Glucose (74-99) mg/dL POC Glucose (mg/dL) 186 H 243 H (70-110) mg/dL Total Protein (6.3-8.2) g/dL Albumin (3.5-5.0) g/dL
[2024-06-05 12:02] LABS: Glucose,Whole Blood 163 mg/dL (70-110)
--- NOTE | 2024-06-05 14:38 | P.PN ---
Subjective History of present illness; 78-year-old male with a past medical history of A- fib (on Eliquis at home), asthma, CAD, diabetes mellitus, history of DVT, history of CVA/TIA, GERD, hyperlipidemia, hypertension, history of OK, OA presents with complaints of chest pain and shortness of breath. Patient characterizes the chest pain as tightness and sharpness, occurring during rest and on exertion, located in the left substernal chest with no radiation, moderate severity (4 out of 10), and constant. Patient also admits to palpitations. Patient reports 2 weeks ago he started taking amiodarone for his atrial fibrillation, and reports he is very concerned with the effects that he had from the amiodarone. Patient reports has had increased shortness of breath and headaches since starting this new medication. Patient reports once the shortness of breath became so severe he decided come to the emergency department to be checked out. Patient also admits to swelling of the lower extremities. Initial lab work from the ER was significant for WBC 10, hemoglobin 13.5, MCV 88.1, sodium 136, creatinine 2.57, glucose 196, troponin 0.199--> 0.207, and lipase 543 EKG done in the ER showed heart rate of 90 bpm, no ST segment elevation or depre ssion seen, no T-wave inversions seen. Atrial fibrillation, interventricular conduction delay, QTc 474. ER CXR: Bilateral pleural effusions cardiomegaly Subjective: 06/05/2024: Patient seen at bedside. No significant overnight events. Patient reports he is breathing slightly better, no longer having chest pain, and no other complaints at this time. Pertinent positives and negatives discussed above, a complete review of systems was preformed and all the other sytems were negative. Vitals Signs Reveiwed. GENERAL: The patient is alert and oriented x3, not in any acute distress. Well developed, well nourished. HEENT: Pupils are round and equally reacting to light. EOMI. No scleral icterus. No conjunctival pallor. Normocephalic, atraumatic. No pharyngeal erythema. No thyromegaly. CARDIOVASCULAR: Irregularly irregular heart rate auscultated PULMONARY: Chest is clear to auscultation b/l, no wheezing or crackles. ABDOMEN: Soft, nontender, nondistended, normoactive bowel sounds. No palpable organomegaly. MUSCULOSKELETAL: No joint swelling or deformity. EXTREMITIES: No cyanosis, clubbing, edema noted from the mid calf down NEUROLOGICAL: Gross neurological examination did not reveal any focal deficits. SKIN: No rashes. Data Reveiwed Today: Patient Labs: WBC 9.2, hemoglobin 12.9, MCV 89, sodium 137, potassium 4.5, bicarb 23, creatinine 2.42, glucose 103, and TSH 2.81. Imaging: Echo showed EF of 25%, enlarged left ventricle with the global decrease in contractility. Four-chamber enlargement. Structurally normal-appearing mitral valve with mitral regurgitation. Mild to moderate tricuspid regurgitation. Right-sided pressures are mildly elevated. #Atypical chest pain/rule out ACS: Troponin elevation potentially secondary to CKD Cardiology on consult, appreciate further recommendations Discontinue amiodarone, lisinopril, and Imdur. Discontinue IV fluids Will transition with Toprol tartrate to metoprolol succinate 25 mg daily #CKD stage IIIb: Likely nephrosclerosis Baseline creatinine 1.84-2.1, 2.57 on admission Continue IV fluids Continue to monitor #Persistent atrial fibrillation: Continue home Eliquis Discontinue home amiodarone and start metoprolol tartrate 25 mg twice daily which will be transition to metoprolol succinate 25 mg daily Echo showed EF of 25% with global decrease in contractility Continue to monitor Chronic: #CAD with prior history of stent in November 2020: Continue home aspirin #Intermittent asthma: Change DuoNeb from as needed to scheduled 3 times daily #Depression: Continue Celexa 20 mg nightly and BuSpar 10 mg twice daily #Essential hypertension: Continue home medications #Hyperlipidemia: Continue home Lipitor 80 mg and fenofibrate 54 mg p.o. daily #Asthma: Changed breathing treatments to as needed F: 75 cc/h E: None N: Heart healthy diet A: Normally ambulates unassisted at home DVT ppx: Eliquis 5 mg p.o. twice daily GI ppx: Protonix 40 mg IV daily CODE STATUS: Full code Dispo: Pending clinical course Burton Abrams MD PGY-1 FM Objective - Vital Signs Vital signs: Vital Signs Temp 97.4 F L 06/04/24 07:30 Pulse 98 06/05/24 12:00 Resp 18 06/05/24 12:00 BP 106/86 06/05/24 12:00 Pulse Ox 97 06/05/24 12:00 FiO2 - Labs CBC & Chem 7: 06/05/24 07:35 06/05/24 07:35 Labs: Abnormal Lab Results - Last 24 Hours (Table) 06/04/24 06/04/24 06/05/24 Range/Units 17:06 20:19 07:35 Hgb 12.9 L (13.0-17.5) gm/dL RDW 16.4 H (11.5-15.5) % BUN (9-20) mg/dL Creatinine (0.66-1.25) mg/dL Glucose (74-99) mg/dL POC Glucose (mg/dL) 186 H 243 H (70-110) mg/dL 06/05/24 06/05/24 Range/Units 07:35 12:00 Hgb (13.0-17.5) gm/dL RDW (11.5-15.5) % BUN 52 H (9-20) mg/dL Creatinine 2.42 H (0.66-1.25) mg/dL Glucose 103 H (74-99) mg/dL POC Glucose (mg/dL) 163 H (70-110) mg/dL
[2024-06-05] MEDS: IPRATROPIUM-ALBUTEROL 3 ML NEB INHALATION SCH (15:38)
[2024-06-05 16:32] LABS: Glucose,Whole Blood 207 mg/dL (70-110)
[2024-06-05 19:54] LABS: Glucose,Whole Blood 188 mg/dL (70-110)
[2024-06-06 05:42] LABS: Glucose,Whole Blood 110 mg/dL (70-110)
[2024-06-06 06:56] LABS: African American GFR (CKD) 27 (>60 ml/min/1.73 sqM); Anion Gap 6 mmol/L; Blood Urea Nitrogen 60 mg/dL (9-20); Calcium 9.1 mg/dL (8.4-10.2); Carbon Dioxide 22 mmol/L (22-30); Chloride 105 mmol/L (98-107); Glucose 105 mg/dL (74-99); Non-African American GFR(CKD) 23 (>60 ml/min/1.73 sqM); Sodium 133 mmol/L (137-145)
[2024-06-06] MEDS: METOPROLOL SUCCINATE (ER) 25 MG TAB.ER.24H PO SCH (09:11)
--- NOTE | 2024-06-06 10:19 | P.PN ---
Subjective Progress Note Date: 06/06/24 This is Brennan Silva NP, I'm dictating on behalf of Dr. Vizcarra's H&P and A&P. Patient was interviewed and examined. Patient is a pleasant 78-year-old male who presented to the hospital with chest pain and breathing issues likely secondary to amiodarone therapy. Patient reports that he is feeling a little bit better today. He still complaining of issues after walking to the bathroom. He states after standing up from the toilet he gets lightheaded, and has to take his time before coming back to the bed. He also reports that he gets short of breath and his respirations increased. Patient is in permanent atrial fibrillation, however his rate is currently controlled on the metoprolol succinate that was changed yesterday. Patient does appreciate a modicum of anxiety that is likely contributing to his symptoms. 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 This morning the patient is denying chest pain, dizziness, lightheadedness, near syncope. He does still appreciate some palpitations and shortness of breath with exertion. GENERAL: Well-appearing, well-nourished and in no acute distress. NECK: Supple without JVD or thyromegaly. LUNGS: Breath sounds clear to auscultation bilaterally. Respiration equal and unlabored. No wheezes, rales or rhonchi. HEART: Regular rate and rhythm without murmurs, rubs or gallops. S1 and S2 heard. EXTREMITIES: Normal range of motion, no edema. No clubbing or cyanosis. Peripheral pulses intact and strong. VITALS: Temp 97.8, pulse 98, respirations 20, blood pressure 113/81, O2 saturation 97% on 2 L TELEMETRY: Atrial fibrillation with controlled ventricular response LABS: Sodium 133, potassium 5, chloride 105, BUN 60, creatinine 2.56, calcium 9.1 IMPRESSION: 1. Persistent atrial fibrillation, currently rate controlled 2. Flat troponin elevation secondary to hypoperfusion 3. Cardiomyopathy 4. Coronary artery disease on medical therapy 5. Hypertension 6. Hyperlipidemia 7. Diabetes mellitus type 2 PLAN: Increase metoprolol succinate to 50 mg daily. Give an extra 25 mg of metoprolol succinate today. Continue to monitor heart rate and blood pressure. Further recommendations based on patient's clinical course. Objective - Vital Signs Vital signs: Vital Signs Temp 97.8 F 06/06/24 03:55 Pulse 60 06/06/24 08:09 Resp 20 06/06/24 03:55 BP 113/81 06/06/24 03:55 Pulse Ox 97 06/06/24 03:55 FiO2 Intake & Output 06/05/24 06/06/24 06/06/24 18:59 06:59 18:59 Intake Total 118 0 118 Balance 118 0 118 Weight 92.986 kg 102.5 kg Intake: Oral 118 0 118 Other: Voiding Method Urinal Urinal # Voids 2 - Labs CBC & Chem 7: 06/05/24 07:35 06/06/24 06:04 Labs: Abnormal Lab Results - Last 24 Hours (Table) 06/05/24 06/05/24 06/05/24 Range/Units 12:00 16:30 19:52 Sodium (137-145) mmol/L BUN (9-20) mg/dL Creatinine (0.66-1.25) mg/dL Glucose (74-99) mg/dL POC Glucose (mg/dL) 163 H 207 H 188 H (70-110) mg/dL 06/06/24 Range/Units 06:04 Sodium 133 L (137-145) mmol/L BUN 60 H (9-20) mg/dL Creatinine 2.56 H (0.66-1.25) mg/dL Glucose 105 H (74-99) mg/dL POC Glucose (mg/dL) (70-110) mg/dL
[2024-06-06 12:53] LABS: Glucose,Whole Blood 180 mg/dL (70-110)
[2024-06-06] MEDS: METOPROLOL SUCCINATE (ER) 25 MG TAB.ER.24H PO STA (12:58)
[2024-06-06 16:07] LABS: Glucose,Whole Blood 145 mg/dL (70-110)
[2024-06-06 17:23] LABS: Glucose,Whole Blood 165 mg/dL (70-110)
[2024-06-06 20:15] LABS: Glucose,Whole Blood 147 mg/dL (70-110)
[2024-06-07 06:39] LABS: Glucose,Whole Blood 130 mg/dL (70-110)
[2024-06-07] MEDS: METOPROLOL SUCCINATE (ER) 50 MG TAB.ER.24H PO SCH (09:07)
--- NOTE | 2024-06-07 11:16 | P.PN ---
Subjective Progress Note Date: 06/07/24 This is Brennan Silva NP, I'm dictating on behalf of Dr. Vizcarra's H&P and A&P. Patient was interviewed and examined. Patient is a pleasant 78-year-old male who presented to the hospital with chest pain and breathing issues likely COPD related. Patient reports that he is still experiencing lightheadedness with standing, but is otherwise denying chest pain, heart palpitations. He still experiencing some shortness of breath and wheezing. Patient's heart rate is better today, and his blood pressure is good. We increased the patient's metoprolol yesterday, and he appears to be tolerating this well. We asked nursing staff to complete orthostatic vital signs, these came back negative, so the etiology of the patient's lightheadedness is not cardiac in nature. GENERAL: Well-appearing, well-nourished and in no acute distress. NECK: Supple without JVD or thyromegaly. LUNGS: Breath sounds demonstrate expiratory wheezing bilaterally. Respiration equal and unlabored. No rales or rhonchi. HEART: Regular rate and irregular rhythm without murmurs, rubs or gallops. S1 and S2 heard. EXTREMITIES: Normal range of motion, no edema. No clubbing or cyanosis. Peripheral pulses intact and strong. VITALS: Temp 97.6, heart rate 75, respirations 18, blood pressure 134/83, O2 saturation 97% on 3 L TELEMETRY: Atrial fibrillation with controlled ventricular response LABS: Sodium 133, potassium 5, BUN 60, creatinine 2.56, calcium 9.1 IMPRESSION: 1. Persistent atrial fibrillation, currently rate controlled 2. Flat troponin elevation secondary to hypoperfusion 3. Cardiomyopathy 4. Coronary artery disease on medical therapy 5. Hypertension 6. Hyperlipidemia 7. Diabetes mellitus type 2 PLAN: Continue metoprolol succinate 50 mg daily. Orthostatic vital signs negative, lightheadedness does not appear to be cardiac related. No further recommendations from a cardiology standpoint. Thank you for allowing us to participate in the care of this patient. Objective - Vital Signs Vital signs: Vital Signs Temp 97.6 F 06/07/24 03:30 Pulse 75 06/07/24 08:08 Resp 18 06/07/24 03:30 BP 134/83 06/07/24 03:30 Pulse Ox 97 10/27/24 03:30 FiO2 Intake & Output 06/06/24 06/07/24 06/07/24 18:59 06:59 18:59 Intake Total 236 0 Balance 236 0 Weight 102.6 kg Intake: Oral 236 0 Other: Voiding Method Urinal Urinal # Voids 2 1 # Bowel Movements 1 - Labs CBC & Chem 7: 06/05/24 07:35 06/06/24 06:04 Labs: Abnormal Lab Results - Last 24 Hours (Table) 06/06/24 06/06/24 06/06/24 Range/Units 12:52 16:05 17:21 POC Glucose (mg/dL) 180 H 145 H 165 H (70-110) mg/dL 06/06/24 06/07/24 Range/Units 20:13 06:38 POC Glucose (mg/dL) 147 H 130 H (70-110) mg/dL
[2024-06-07 11:30] LABS: Glucose,Whole Blood 188 mg/dL (70-110)
[2024-06-07] MEDS: FUROSEMIDE 10 MG/ML 2 ML VIAL IV ONE (11:51)
[2024-06-07 12:45] LABS: Anisocytosis Slight; Basophils # (A) 0.1 k/uL (0-0.2); Basophils % (A) 1 %; Eosinophils # (A) 0.1 k/uL (0-0.7); Eosinophils % (A) 1 %; HCT 44.7 % (39.0-53.0); HGB 14.1 gm/dL (13.0-17.5); Hypochromasia Slight; Lymphocytes # (A) 1.7 k/uL (1.0-4.8); Lymphocytes % (A) 17 %; MCH 28.6 pg (25.0-35.0); MCHC 31.6 g/dL (31.0-37.0); MCV 90.6 fL (80.0-100.0); Mean Platelet Volume 8.1; Monocytes # (A) 0.6 k/uL (0-1.0); Monocytes % (A) 6 %; Neutrophils # (A) 7.2 k/uL (1.3-7.7); Neutrophils % (A) 73 %; Platelet Count 238 k/uL (150-450); RBC 4.94 m/uL (4.30-5.90); WBC 9.8 k/uL (3.8-10.6)
[2024-06-07 13:00] LABS: African American GFR (CKD) 25 (>60 ml/min/1.73 sqM); Anion Gap 7 mmol/L; Blood Urea Nitrogen 66 mg/dL (9-20); Calcium 9.4 mg/dL (8.4-10.2); Carbon Dioxide 22 mmol/L (22-30); Chloride 104 mmol/L (98-107); Glucose 177 mg/dL (74-99); Non-African American GFR(CKD) 22 (>60 ml/min/1.73 sqM); Potassium 4.9 mmol/L (3.5-5.1); Sodium 133 mmol/L (137-145)
[2024-06-07 13:06] LABS: NT-Pro-B-Type Natriuretic Pept 7680 pg/mL
--- NOTE | 2024-06-07 14:54 | P.PN ---
Subjective Progress Note Date: 06/06/24 78-year-old male, past medical history of paroxysmal atrial fibrillation, coronary artery disease on medical therapy, hypertension, hyperlipidemia, diabetes mellitus type 2, family history of premature coronary artery disease. Patient had a cardioversion done October 2021 and patient states that he has been maintained in a sinus rhythm until recently. Patient had an office visit on 05/19/2024 as he was complaining at that time of intermittent episodes of palpitations for a few days. He was found to be in atrial fibrillation with a right bundle branch block with a controlled ventricular rate at that time. It was recommended the patient's start iron amiodarone which he states he has been taking for the past 2 to 3 weeks. He states that he was very concerned regarding the side effects of amiodarone. Patient states he developed difficulty breathing, feet were swelling and he knew he was in atrial fibrillation. He presented to the hospital with A-fib with controlled ventricular rate. Patient has a history of sinus bradycardia when he is out of atrial fibrillation. Blood pressure 107/74, heart rate 98, pulse ox 96% on 2 L nasal cannula. Objective - Vital Signs Vital signs: Vital Signs Temp 97.8 F 06/06/24 03:55 Pulse 60 06/06/24 08:09 Resp 20 06/06/24 03:55 BP 113/81 06/06/24 03:55 Pulse Ox 97 06/06/24 03:55 FiO2 Intake & Output 06/05/24 06/06/24 06/06/24 18:59 06:59 18:59 Intake Total 118 0 118 Balance 118 0 118 Weight 92.986 kg 102.5 kg Intake: Oral 118 0 118 Other: Voiding Method Urinal Urinal # Voids 2 - Exam Gen: This is a 78-year-old male in no acute distress VS: reviewed HEENT: Head is atraumatic, normocephalic. Pupils equal, round. Sclerae is anicteric. NECK: Supple. No JVD. LUNGS: Bilateral rhonchi. No intercostal retractions. HEART: Irregular rhythm ABDOMEN: Soft No tenderness. EXTREMITIES: No pedal edema. No calf tenderness. NEUROLOGICAL: Patient is awake, alert and oriented x3. - Labs CBC & Chem 7: 06/07/24 12:17 06/07/24 12:17 Labs: Abnormal Lab Results - Last 24 Hours (Table) 06/05/24 06/05/24 06/05/24 Range/Units 12:00 16:30 19:52 Sodium (137-145) mmol/L BUN (9-20) mg/dL Creatinine (0.66-1.25) mg/dL Glucose (74-99) mg/dL POC Glucose (mg/dL) 163 H 207 H 188 H (70-110) mg/dL 06/06/24 Range/Units 06:04 Sodium 133 L (137-145) mmol/L BUN 60 H (9-20) mg/dL Creatinine 2.56 H (0.66-1.25) mg/dL Glucose 105 H (74-99) mg/dL POC Glucose (mg/dL) (70-110) mg/dL Assessment and Plan Assessment: #Atypical chest pain/rule out ACS: Troponin elevation potentially secondary to CKD Cardiology on consult, appreciate further recommendations Discontinue amiodarone, lisinopril, and Imdur. Discontinue IV fluids Will transition with Toprol tartrate to metoprolol succinate 25 mg daily #CKD stage IIIb: Likely nephrosclerosis Baseline creatinine 1.84-2.1, 2.57 on admission Continue IV fluids Continue to monitor #Persistent atrial fibrillation: Continue home Eliquis Discontinue home amiodarone and start metoprolol tartrate 25 mg twice daily which will be transition to metoprolol succinate 25 mg daily Echo showed EF of 25% with global decrease in contractility Continue to monitor Chronic: #CAD with prior history of stent in November 2020: Continue home aspirin #Intermittent asthma: Change DuoNeb from as needed to scheduled 3 times daily #Depression: Continue Celexa 20 mg nightly and BuSpar 10 mg twice daily #Essential hypertension: Continue home medications #Hyperlipidemia: Continue home Lipitor 80 mg and fenofibrate 54 mg p.o. daily #Asthma: Changed breathing treatments to as needed
--- NOTE | 2024-06-07 14:57 | P.PN ---
Subjective Progress Note Date: 06/07/24 78-year-old male, past medical history of paroxysmal atrial fibrillation, coronary artery disease on medical therapy, hypertension, hyperlipidemia, diabetes mellitus type 2, family history of premature coronary artery disease. Patient had a cardioversion done October 2021 and patient states that he has been maintained in a sinus rhythm until recently. Patient had an office visit on 05/19/2024 as he was complaining at that time of intermittent episodes of palpitations for a few days. He was found to be in atrial fibrillation with a right bundle branch block with a controlled ventricular rate at that time. It was recommended the patient's start iron amiodarone which he states he has been taking for the past 2 to 3 weeks. He states that he was very concerned regarding the side effects of amiodarone. Patient states he developed difficulty breathing, feet were swelling and he knew he was in atrial fibrillation. He presented to the hospital with A-fib with controlled ventricular rate. Patient has a history of sinus bradycardia when he is out of atrial fibrillation. Blood pressure 107/74, heart rate 98, pulse ox 96% on 2 L nasal cannula. 06/07/2024 Patient is seen and evaluated in room at bedside; reports some lightheadedness when gets up from bed and with ambulation; remains weak and reporting difficulty ambulating due to weakness Vital signs are reviewed temperature 97.6, pulse 75, respiration 18 and blood pressure 134/83 with O2 saturation 97% on 3 L; orthostatic vital signs are added Patient remains on metoprolol succinate 50 mg daily for atrial fibrillation; cardiology recommending to continue with current medications at this time --PT/OT consulted for evaluation and recommendations for discharge planning Objective - Vital Signs Vital signs: Vital Signs Temp 97.6 F 06/07/24 03:30 Pulse 75 06/07/24 08:08 Resp 18 06/07/24 03:30 BP 134/83 06/07/24 03:30 Pulse Ox 97 06/07/24 03:30 FiO2 Intake & Output 06/06/24 06/07/24 06/07/24 18:59 06:59 18:59 Intake Total 236 0 Balance 236 0 Weight 102.6 kg Intake: Oral 236 0 Other: Voiding Method Urinal Urinal # Voids 2 1 # Bowel Movements 1 - Exam Gen: This is a 78-year-old male in no acute distress VS: reviewed HEENT: Head is atraumatic, normocephalic. Pupils equal, round. Sclerae is anicteric. NECK: Supple. No JVD. LUNGS: Bilateral rhonchi. No intercostal retractions. HEART: Irregular rhythm ABDOMEN: Soft No tenderness. EXTREMITIES: No pedal edema. No calf tenderness. NEUROLOGICAL: Patient is awake, alert and oriented x3. - Labs CBC & Chem 7: 06/07/24 12:17 06/07/24 12:17 Labs: Abnormal Lab Results - Last 24 Hours (Table) 06/06/24 06/06/24 06/06/24 Range/Units 12:52 16:05 17:21 POC Glucose (mg/dL) 180 H 145 H 165 H (70-110) mg/dL 06/06/24 06/07/24 Range/Units 20:13 06:38 POC Glucose (mg/dL) 147 H 130 H (70-110) mg/dL Assessment and Plan Assessment: #Atypical chest pain/rule out ACS: Troponin elevation potentially secondary to CKD Cardiology on consult, appreciate further recommendations Discontinue amiodarone, lisinopril, and Imdur. Discontinue IV fluids Will transition with Toprol tartrate to metoprolol succinate 25 mg daily #CKD stage IIIb: Likely nephrosclerosis Baseline creatinine 1.84-2.1, 2.57 on admission Continue IV fluids Continue to monitor #Persistent atrial fibrillation: Continue home Eliquis Discontinue home amiodarone and start metoprolol tartrate 25 mg twice daily which will be transition to metoprolol succinate 25 mg daily Echo showed EF of 25% with global decrease in contractility Continue to monitor Chronic: #CAD with prior history of stent in November 2020: Continue home aspirin #Intermittent asthma: Change DuoNeb from as needed to scheduled 3 times daily #Depression: Continue Celexa 20 mg nightly and BuSpar 10 mg twice daily #Essential hypertension: Continue home medications #Hyperlipidemia: Continue home Lipitor 80 mg and fenofibrate 54 mg p.o. daily #Asthma: Changed breathing treatments to as needed
[2024-06-07 16:27] LABS: Glucose,Whole Blood 128 mg/dL (70-110)
[2024-06-07 20:16] LABS: Glucose,Whole Blood 252 mg/dL (70-110)
[2024-06-08 06:24] LABS: Glucose,Whole Blood 101 mg/dL (70-110)
[2024-06-08 08:41] LABS: African American GFR (CKD) 27 (>60 ml/min/1.73 sqM); Anion Gap 10 mmol/L; Blood Urea Nitrogen 67 mg/dL (9-20); Calcium 9.3 mg/dL (8.4-10.2); Carbon Dioxide 23 mmol/L (22-30); Chloride 101 mmol/L (98-107); Glucose 142 mg/dL (74-99); Non-African American GFR(CKD) 23 (>60 ml/min/1.73 sqM); Potassium 4.4 mmol/L (3.5-5.1); Sodium 134 mmol/L (137-145)
--- NOTE | 2024-06-08 11:20 | XR ---
EXAMINATION TYPE: XR chest 1V DATE OF EXAM: 06/08/2024 10:25 AM COMPARISON: None CLINICAL INDICATION: Male, 78 years old with history of CHF; TECHNIQUE: XR chest 1V Frontal view of the chest. FINDINGS: Lungs/Pleura: No evidence of focal consolidation or pneumothorax. Blunting of the costophrenic angles is present. Pulmonary vascularity: Unremarkable. Heart/mediastinum: Cardiomediastinal silhouette is unremarkable. Musculoskeletal: No acute osseous pathology. Other findings: None IMPRESSION: Cardiomegaly, pulmonary vascular congestion and bilateral pleural effusions. Correlate with BNP for c ongestive heart failure. [facility], , 06/08/2024 11:17 AM
[2024-06-08 11:42] LABS: Glucose,Whole Blood 164 mg/dL (70-110)
[2024-06-08] MEDS: methylPREDNISolone SOD SUCCI 40 MG/ML 1 ML VIAL IV STA (12:37)
--- NOTE | 2024-06-08 14:46 | P.PN ---
Subjective 78-year-old male, past medical history of paroxysmal atrial fibrillation, coronary artery disease on medical therapy, hypertension, hyperlipidemia, d iabetes mellitus type 2, family history of premature coronary artery disease. Patient had a cardioversion done October 2021 and patient states that he has been maintained in a sinus rhythm until recently. Patient had an office visit on 05/19/2024 as he was complaining at that time of intermittent episodes of palpitations for a few days. He was found to be in atrial fibrillation with a right bundle branch block with a controlled ventricular rate at that time. It was recommended the patient's start iron amiodarone which he states he has been taking for the past 2 to 3 weeks. He states that he was very concerned regarding the side effects of amiodarone. Patient states he developed difficulty breathing, feet were swelling and he knew he was in atrial fibrillation. He presented to the hospital with A-fib with controlled ventricular rate. Patient has a history of sinus bradycardia when he is out of atrial fibrillation. Blood pressure 107/74, heart rate 98, pulse ox 96% on 2 L nasal cannula. 06/07/2024 Patient is seen and evaluated in room at bedside; reports some lightheadedness when gets up from bed and with ambulation; remains weak and reporting difficulty ambulating due to weakness Vital signs are reviewed temperature 97.6, pulse 75, respiration 18 and blood pressure 134/83 with O2 saturation 97% on 3 L; orthostatic vital signs are added Patient remains on metoprolol succinate 50 mg daily for atrial fibrillation; cardiology recommending to continue with current medications at this time --PT/OT consulted for evaluation and recommendations for discharge planning 06/08/2024 Patient is seen at bedside, no significant overnight events. Patient reports his difficulty breathing remains significant especially when he tries to walk around his room. Vital signs are reviewed temperature 97.4, pulse 69, respiration 20, blood pressure 104/67, and O2 saturation 97% on 2 L Patient was given one-time dose of Solu-Medrol 40 mg IV once and will start prednisone 40 mg p.o. daily tomorrow for continued shortness of breath and con tinued need for oxygen which the patient normally does not need at home. Patient has also been having dark urine with what appears to be sediment within so a urinalysis was ordered. Gen: This is a 78-year-old male in no acute distress VS: reviewed HEENT: Head is atraumatic, normocephalic. Pupils equal, round. Sclerae is anicteric. NECK: Supple. No JVD. LUNGS: Bilateral rhonchi. No intercostal retractions. HEART: Irregular rhythm ABDOMEN: Soft No tenderness. EXTREMITIES: No pedal edema. No calf tenderness. NEUROLOGICAL: Patient is awake, alert and oriented x3. New imaging: Chest x-ray showed cardiomegaly, pulmonary vascular congestion and bilateral pleural effusion. Assessment: #Atypical chest pain/rule out ACS: Troponin elevation potentially secondary to CKD Cardiology on consult, appreciate further recommendations Discontinue amiodarone, lisinopril, and Imdur. Discontinue IV fluids Will transition with Toprol tartrate to metoprolol succinate 25 mg daily Ordered stat chest x-ray #CKD stage IIIb: Likely nephrosclerosis Baseline creatinine 1.84-2.1, 2.57 on admission Continue IV fluids Continue to monitor #Persistent atrial fibrillation: Continue home Eliquis Continue metoprolol succinate 50 mg daily Echo showed EF of 25% with global decrease in contractility Continue to monitor Chronic: #CAD with prior history of stent in November 2020: Continue home aspirin #Intermittent asthma: Change DuoNeb from as needed to scheduled 3 times daily #Depression: Continue Celexa 20 mg nightly and BuSpar 10 mg twice daily #Essential hypertension: Continue home medications #Hyperlipidemia: Continue home Lipitor 80 mg and fenofibrate 54 mg p.o. daily #Asthma: One-time dose of IV Solu-Medrol 40 mg Started on prednisone 40 mg daily tomorrow Objective - Vital Signs Vital signs: Vital Signs Temp 97.4 F L 06/08/24 08:00 Pulse 76 06/08/24 08:05 Resp 20 06/08/24 08:00 BP 105/71 06/08/24 08:00 Pulse Ox 98 06/08/24 08:00 FiO2 Intake & Output 06/07/24 06/08/24 06/08/24 18:59 06:59 18:59 Intake Total 480 20 118 Output Total 300 635 75 Balance 180 -615 43 Weight 101.4 kg Intake: IV 20 Invasive Line 2 20 Oral 480 118 Output: Urine 300 635 75 Other: Voiding Method Urinal Urinal Urinal # Voids 2 # Bowel Movements 2 1 - Labs CBC & Chem 7: 06/07/24 12:17 06/08/24 08:03 Labs: Abnormal Lab Results - Last 24 Hours (Table) 06/07/24 06/07/24 06/07/24 Range/Units 12:17 12:17 16:26 RDW 16.0 H (11.5-15.5) % Sodium 133 L (137-145) mmol/L BUN 66 H (9-20) mg/dL Creatinine 2.68 H (0.66-1.25) mg/dL Glucose 177 H (74-99) mg/dL POC Glucose (mg/dL) 128 H (70-110) mg/dL 06/07/24 06/08/24 06/08/24 Range/Units 20:15 08:03 11:40 RDW (11.5-15.5) % Sodium 134 L (137-145) mmol/L BUN 67 H (9-20) mg/dL Creatinine 2.58 H (0.66-1.25) mg/dL Glucose 142 H (74-99) mg/dL POC Glucose (mg/dL) 252 H 164 H (70-110) mg/dL
[2024-06-08 15:18] LABS: Appearance,Urine Cloudy (Clear); Bilirubin,Urine Negative (Negative); Blood,Urine Large (Negative); Color,Urine Light Yellow; Glucose,Urine (UA) 4+ (Negative); Ketones,Urine Negative (Negative); Leukocyte Esterase,Urine Negative (Negative); Mucus,Urine Few /hpf; Nitrite,Urine Negative (Negative); Protein,Urine Negative (Negative); RBC,Urine 83 /hpf (0-5); Specific Gravity,Urine 1.015 (1.001-1.035); Urobilinogen,Urine <2.0 mg/dL (<2.0); WBC,Urine 2 /hpf (0-5)
[2024-06-08 16:09] LABS: Creatinine,Urine Random 92.3 mg/dL
--- NOTE | 2024-06-08 16:31 | US ---
EXAMINATION TYPE: US kidneys/renal and bladder DATE OF EXAM: 06/08/2024 COMPARISON: US 09/03/2021 CLINICAL INDICATION: Male, 78 years old with history of Lauren; LAUREN TECHNIQUE: Grayscale and color Doppler imaging of the bilateral kidneys and urinary bladder: FINDINGS: EXAM MEASUREMENTS: Right Kidney: 10.2 x 6.0 x 5.5 cm Left Kidney: 9.8 x 5.1 x 5.0 cm Right Kidney: No hydronephrosis or masses seen Left Kidney: No hydronephrosis or masses seen Bladder: Appears anechoic, slightly limited evaluation- not fully distended. Bilateral Jets seen: Yes IMPRESSION: No evidence for obstructive uropathy or renal calculus. [facility], , 06/08/2024 4:29 PM
[2024-06-08 16:59] LABS: Glucose,Whole Blood 237 mg/dL (70-110)
[2024-06-08 20:16] LABS: Glucose,Whole Blood 280 mg/dL (70-110)
[2024-06-09 06:13] LABS: Glucose,Whole Blood 218 mg/dL (70-110)
[2024-06-09 07:49] LABS: ALT 81 U/L (4-49); AST 70 U/L (17-59); African American GFR (CKD) 29 (>60 ml/min/1.73 sqM); Albumin 3.5 g/dL (3.5-5.0); Alkaline Phosphatase 130 U/L (38-126); Anion Gap 9 mmol/L; Blood Urea Nitrogen 64 mg/dL (9-20); Calcium 9.3 mg/dL (8.4-10.2); Carbon Dioxide 22 mmol/L (22-30); Chloride 104 mmol/L (98-107); Glucose 183 mg/dL (74-99); Non-African American GFR(CKD) 25 (>60 ml/min/1.73 sqM); Potassium 4.8 mmol/L (3.5-5.1); Sodium 135 mmol/L (137-145)
[2024-06-09] MEDS: predniSONE 20 MG TAB PO SCH (08:55)
--- NOTE | 2024-06-09 09:02 | CDI ---
Documentation Clarification Form Date: 06/09/2024 From: Kaye Alexis RN CCDS Phone: [phone] Admit Date: 06/03/2024 08:39:00 PM Patient Name: Zacarias Nogueira Visit Number: [id number] Discharge Date: ATTENTION: The Clinical Documentation Specialists (CDI) and [facility] Coding Staff appreciate your assistance in clarifying documentation. Please respond to the clarification below the line at the bottom and electronically sign. The CDI & [facility] Coding staff will review the response and follow-up if needed. Please note: Queries are made part of the Legal Health Record. If you have any questions, please contact the author of this message via ITS. Doctor/Provider: Ponce Vizcarra MD: There is documentation of NSTEMI in the ED note 06/03. Additional clarification is requested. History/Risk Factors: 78-year-old male with a history of AFib, asthma, CVA, DM2, DVT and CKD3b who presents with chest pain and SOB Clinical Indicators: 06/03 Triage VS: 103/70, 98.3, 114, 20, 96% 2liters nasal cannula 06/03 ED note, Clinical Impression: "Chest pain, Coronary artery disease, history of myocardial infarction, Acute non-ST elevation myocardial infarction (NSTEMI), Renal disease" 06/04 H&P, Assessment and Plan: " #Atypical chest pain/rule out ACS: Troponin elevation potentially secondary to CKD" 06/06 Cardiology PN, Impression: "2. Flat troponin elevation secondary to hypoperfusion." 06/03x2, 06/04 Troponin: 0.212, 0.199, 0.207 06/03, 06/07 Pro-BNP: 5500, 7680 Treatment: Monitor troponin and Pro-BNP Eliquis 5mg oral BID start 06/04 Lipitor 80mg oral daily start 06/04 Aspirin 81mg oral at HS start 06/04 Toprol XL 25mg oral daily start 06/06 then 50mg oral daily start 06/07 Can you please clarify the NSTEMI? [ ] NSTEMI type 2 CA [ ] Non-ischemic with acute myocardial injury [ xx ] Elevated troponins clinically insignificant [ ] Other, please specify [ ] Unable to determine MTDD
[2024-06-09 11:04] LABS: Glucose,Whole Blood 204 mg/dL (70-110)
--- NOTE | 2024-06-09 12:28 | P.NPCON ---
History of Present Illness - Reason for Consult acute renal failure - History of Present Illness Patient is a 78-year-old male with history of chronic kidney disease NKF stage IIIB with baseline creatinine about 1.8-1.9 mg/dL.underlying history of hypertension, coronary artery disease, A. fib and CVA and type 2 diabetes. Patient is admitted to the hospital with complaints of chest pain and shortness of breath. He also noticed worsening lower extremity swelling. Patient was last seen at our office about a year ago. Serum creatinine was 2.5 on admission and is currently at 2.43. Status post IV Lasix 20 mg yesterday. Blood pressure has been on the lower side with systolic in the 90s. No history of fever chills nausea vomiting abdominal pain or diarrhea. Patient has been voiding and 24 hour urine output documented at 1.4 L. Patient also has underlying COPD and is being treated for acute exacerbation of COPD. Review of Systems as per HPI Past Medical History Past Medical History: Atrial Fibrillation, Asthma, Coronary Artery Disease (CAD), Chest Pain / Angina, CVA/TIA, Diabetes Mellitus, Deep Vein Thrombosis (DVT), GERD/Reflux, Hyperlipidemia, Hypertension, Myocardial Infarction (TN), Osteoarthritis (OA), Renal Disease, Skin Disorder Additional Past Medical History / Comment(s): Hx CVA 11/30, had stent placed. Some trouble remembering things since. Hx left DVT. 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 Current vision problems and headaches. Psorasis. Gout. Last Myocardial Infarction Date:: 09/02 History of Any Multi-Drug Resistant Organisms: None Reported Past Surgical History: Heart Catheterization With Stent, Orthopedic Surgery Additional Past Surgical History / Comment(s): Left knee surgery, right shoulder surgery, bilateral cataract surgery. eye inplants, broken back Past Anesthesia/Blood Transfusion Reactions: No Reported Reaction, Motion Sickness Date of Last Stent Placement:: 11/2020 Past Psychological History: Anxiety, Depression Smoking Status: Never smoker Past Alcohol Use History: None Reported Past Drug Use History: None Reported - Past Family History Mother Family Medical History: Dementia Additional Family Medical History / Comment(s): at 58 years old of Alzheimer disease. Brother(s) Family Medical History: CVA/TIA, Dementia Father Family Medical History: Diabetes Mellitus Additional Family Medical History / Comment(s): of old age at 92 years old. Sister(s) Family Medical History: Cancer, Coronary Artery Disease (CAD) Additional Family Medical History / Comment(s): of lung cancer. Medications and Allergies Home Medications Medication Instructions Recorded Confirmed Type Albuterol Sulfate [Albuterol 2 puff INHALATION RT-Q4H PRN 09/02/21 06/03/24 History Sulfate Hfa] Apixaban [Eliquis] 5 mg PO BID 09/02/21 06/03/24 History Atorvastatin [Lipitor] 80 mg PO DAILY 09/02/21 06/03/24 History Citalopram Hydrobromide [CeleXA] 20 mg PO HS 09/02/21 06/03/24 History Fenofibrate,Micronized 67 mg PO DAILY 09/02/21 06/03/24 History [Fenofibrate] Omeprazole 20 mg PO HS 09/02/21 06/03/24 History allopurinoL [Zyloprim] 100 mg PO DAILY 09/02/21 06/03/24 History busPIRone HCL 10 mg PO BID 09/02/21 06/03/24 History metFORMIN HCL ER [Glucophage XR] 500 mg PO HS 09/02/21 06/03/24 History Aspirin [Children's Aspirin] 81 mg PO HS 06/13/22 06/03/24 History Isosorbide Mononitrate ER [Imdur] 30 mg PO DAILY 06/16/23 06/03/24 History Dapagliflozin Propanediol [Farxiga] 5 mg PO DAILY 12/05/23 06/03/24 History amLODIPine [Norvasc] 5 mg PO DAILY #30 tab 12/06/23 06/03/24 Rx lisinopriL [Zestril] 10 mg PO HS #30 tab 12/06/23 06/03/24 Rx Amiodarone [Cordarone] 200 mg PO BID 06/03/24 06/03/24 History Clotrimazole Cream [Lotrimin Cream] 1 applic TOPICAL BID PRN 06/03/24 06/03/24 History Furosemide [Lasix] 20 mg PO DAILY 06/03/24 06/03/24 History Magnesium Oxide [Mag-Ox] 800 mg PO BID 06/03/24 06/03/24 History Allergies Allergy/AdvReac Type Severity Reaction Status Date / Time No Known Allergies Allergy Verified 06/03/24 20:51 Physical Exam Vitals: Vital Signs Temp Pulse Pulse Pulse Resp BP BP 06/09/24 11:55 57 L 06/09/24 11:45 60 06/09/24 10:53 97.5 F L 61 100/80 06/09/24 08:48 70 06/09/24 08:39 06/09/24 08:36 68 06/09/24 07:48 97.5 F L 69 100/57 06/09/24 04:00 97.9 F 67 20 123/88 06/09/24 02:00 73 20 06/09/24 00:00 97.7 F 78 20 108/83 06/08/24 21:06 70 06/08/24 20:56 68 06/08/24 20:00 97.6 F 58 L 58 L 20 131/71 06/08/24 16:00 55 L 103/65 06/08/24 15:46 72 06/08/24 15:41 69 06/08/24 14:00 60 69 20 Pulse Ox 06/09/24 11:55 06/09/24 11:45 06/09/24 10:53 97 06/09/24 08:48 06/09/24 08:39 96 06/09/24 08:36 06/09/24 07:48 96 06/09/24 04:00 97 06/09/24 02:00 06/09/24 00:00 98 06/08/24 21:06 06/08/24 20:56 06/08/24 20:00 97 06/08/24 16:00 96 06/08/24 15:46 06/08/24 15:41 06/08/24 14:00 Intake and Output 06/08/24 06/09/24 06/09/24 22:59 06:59 14:59 Intake Total 128 10 118 Output Total 250 500 Balance -122 -490 118 Intake: IV 10 10 Invasive Line 2 10 10 Oral 118 118 Output: Urine 250 500 Other: Voiding Method Urinal # Bowel Movements 1 Weight 102.2 kg patient is awake, comfortable, no acute distress, mildly short of breath Alert oriented 3 Examination of the heart S1 and S2 Examination of the lungs bilateral breath sounds are heard Abdomen is soft nontender obese Examination of lower extremities shows edema 2+ bilaterally [employer]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 Acute kidney injury ATN secondary to hypotension and cardiorenal syndrome. No evidence of obstructive uropathy on ultrasound of the kidneys. UA shows no protein and large blood and WBCs 2. 2. Chronic kidney disease stage IIIB with baseline creatinine 1.8-2 mg/dL secondary to nephrosclerosis. 3. Acute CHF with decreased ejection fraction of 20% 4. Coronary artery disease with history of coronary stents 5. Chronic A. fib 6. History of asthma/COPD being treated for acute exacerbation 7. Volume overload Plan: add diuretics Continue with farxiga. Consider decreasing dose of metoprolol as blood pressure is low and heart rate is in the 50s. Repeat labs in a.m. Accurate I's and O's Thank you for the consultation. We will continue to follow the patient with you during his hospitalization.
[2024-06-09] MEDS: ZINC OXIDE PASTE (Z-GUARD) 1 APPLIC TOPICAL PRN (13:05)
--- NOTE | 2024-06-09 16:38 | P.PN ---
Progress Note - Text Progress Note Date: 06/09/24 Subjective 78-year-old male, past medical history of paroxysmal atrial fibrillation, coronary artery disease on medical therapy, hypertension, hyperlipidemia, diabetes mellitus type 2, family history of premature coronary artery disease. Patient had a cardioversion done October 2021 and patient states that he has been maintained in a sinus rhythm until recently. Patient had an office visit on 05/19/2024 as he was complaining at that time of intermittent episodes of p alpitations for a few days. He was found to be in atrial fibrillation with a right bundle branch block with a controlled ventricular rate at that time. It was recommended the patient's start iron amiodarone which he states he has been taking for the past 2 to 3 weeks. He states that he was very concerned regarding the side effects of amiodarone. Patient states he developed difficulty breathing, feet were swelling and he knew he was in atrial fibrillation. He presented to the hospital with A-fib with controlled ventricular rate. Patient has a history of sinus bradycardia when he is out of atrial fibrillation. Blood pressure 107/74, heart rate 98, pulse ox 96% on 2 L nasal cannula. 06/07/2024 Patient is seen and evaluated in room at bedside; reports some lightheadedness when gets up from bed and with ambulation; remains weak and reporting difficulty ambulating due to weakness Vital signs are reviewed temperature 97.6, pulse 75, respiration 18 and blood pressure 134/83 with O2 saturation 97% on 3 L; orthostatic vital signs are added Patient remains on metoprolol succinate 50 mg daily for atrial fibrillation; cardiology recommending to continue with current medications at this time --PT/OT consulted for evaluation and recommendations for discharge planning 06/08/2024 Patient is seen at bedside, no significant overnight events. Patient reports his difficulty breathing remains significant especially when he tries to walk around his room. Vital signs are reviewed temperature 97.4, pulse 69, respiration 20, blood pressure 104/67, and O2 saturation 97% on 2 L Patient was given one-time dose of Solu-Medrol 40 mg IV once and will start prednisone 40 mg p.o. daily tomorrow for continued shortness of breath and continued need for oxygen which the patient normally does not need at home. Patient has also been having dark urine with what appears to be sediment within so a urinalysis was ordered. June 09, 2024: 78-year-old male, follows with PCP Dr. Baker with a past medical history of atrial fibrillation on anticoagulation with Eliquis, coronary disease stent replacement, hypertension, hyperlipidemia, diabetes type 2 aal-eyuidug-ikisrhoqu, CKD and prior history of CVAstatus post stent trouble remembering things and prior history of left lower extremity DVT, anxiety/depression Sitting at the edge of the bed. Has a cough. Some shortness of breath. Bringing up some yellow sputum. Eating fair. Patient has chronic back pain is requested family to bring in the brace. DuoNeb. 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 . Denies any history of smoking or alcohol. Physical examination: VITAL SIGNS: 97.5, 60, 20, 100/80, 97% room air GENERAL: Sitting at the edge of the bed, some coughing EYES: Pupils equal. Conjunctiva normal. HEENT: External appearance of nose and ears normal, oral cavity grossly normal. NECK: JVD not raised; masses not palpable. HEART: First and second heart sounds are normal; edema present LUNGS: Respiratory rate increased, decreased breath sounds Tory wheezing. ABDOMEN: Soft, nontender, liver spleen not palpable, no masses palpable. PSYCH: Alert and oriented x3; mood and affect normal. MUSCULOSKELETAL:No Clubbing/cyanosis;muscles-grossly intact Investigation: June 09: Sodium 135 BUN 64 creatinine 2.43 AST 70, ALT 81 Renal ultrasound: No evidence of obstructive uropathy or renal calculi Chest x-ray: Some vascular congestion bilateral pleural effusion cardiomegaly. 2D echocardiogram: EF 20%Mild to moderate TR. Troponin I 0.207 Assessment and plan: -Acute on chronic congestive heart failure from systolic dysfunction EF 20%. Ischemic cardiomyopathy: Slow to respond IV Lasix 40 mg every 12. Add fluid restriction 1500 cc a day. Emery wrap lower extremity Chest x-ray in the morning # Acute kidney injury ATN secondary to hypotension and cardiorenal syndrome. No obstructive uropathy. Troponinemia is likely secondary to chronic kidney disease. No ACS #CKD stage IIIb:Likely nephrosclerosis, baseline creatinine 1.8-2 mg/dL. Follow creatinine #Persistent atrial fibrillation: Eliquis, metoprolol Cardiology following #CAD with prior history of stent in November 2020: Beta-jairo, aspirin #Intermittent asthma: Slow to respond DuoNeb. Add nebulized Pulmicort #Depression: Celexa 20 mg nightly and BuSpar 10 mg twice daily #Essential hypertension: Beta-jairo #Hyperlipidemia: e Lipitor 80 mg and fenofibrate 54 mg p.o. daily # Intermittent asthma: Prednisone.
[2024-06-09 16:47] LABS: Glucose,Whole Blood 179 mg/dL (70-110)
[2024-06-09 20:02] LABS: Glucose,Whole Blood 192 mg/dL (70-110)
[2024-06-09] MEDS: FUROSEMIDE 10 MG/ML 4 ML VIAL IV SCH (21:19)
[2024-06-09] MEDS: BUDESONIDE 1 MG/2 ML NEBU INHALATION SCH (22:05)
[2024-06-10 06:05] LABS: Glucose,Whole Blood 142 mg/dL (70-110)
[2024-06-10 07:46] LABS: African American GFR (CKD) 27 (>60 ml/min/1.73 sqM); Anion Gap 10 mmol/L; Blood Urea Nitrogen 73 mg/dL (9-20); Calcium 9.4 mg/dL (8.4-10.2); Carbon Dioxide 26 mmol/L (22-30); Chloride 99 mmol/L (98-107); Glucose 132 mg/dL (74-99); Non-African American GFR(CKD) 24 (>60 ml/min/1.73 sqM); Potassium 4.6 mmol/L (3.5-5.1); Sodium 135 mmol/L (137-145)
--- NOTE | 2024-06-10 08:20 | XR ---
EXAMINATION TYPE: XR chest 2V DATE OF EXAM: 06/10/2024 6:21 AM COMPARISON: 05/31/2024 CLINICAL INDICATION: Male, 78 years old with history of Follow-up CHF; [facility] TECHNIQUE: XR chest 2V Frontal and lateral views of the chest. FINDINGS: Lungs/Pleura: Small bilateral pleural effusions. No evidence of focal consolidation or pneumothorax. Blunting of the costophrenic angles is present. Pulmonary vascularity: Unremarkable. Heart/mediastinum: Cardiomediastinal silhouette is enlarged and stable. Musculoskeletal: No acute osseous pathology. Other findings: None IMPRESSION: 1. No acute cardiopulmonary disease/process. 2. Small bilateral pleural effusion. [facility], , 06/10/2024 8:18 AM
[2024-06-10 08:50] VITALS: BMI 32.5
[2024-06-10 11:06] LABS: Glucose,Whole Blood 228 mg/dL (70-110)
--- NOTE | 2024-06-10 12:07 | P.PN ---
Subjective patient is seen for follow-up for acute kidney injury and chronic kidney disease. Overall feels better. Shortness of breath has improved. Serum creatinine at 2.5 today Objective - Vital Signs Vital signs: Vital Signs Temp 96.7 F L 06/10/24 10:54 Pulse 60 06/10/24 12:02 Resp 19 06/10/24 08:00 BP 143/82 06/10/24 10:54 Pulse Ox 97 06/10/24 10:54 FiO2 Intake & Output 06/09/24 06/10/24 06/10/24 18:59 06:59 18:59 Intake Total 598 560 180 Output Total 640 Balance 598 -80 180 Weight 102.7 kg 102.7 kg Intake: IV 20 Invasive Line 3 20 Oral 598 540 180 Output: Urine 640 Other: Voiding Method Urinal Urinal Urinal # Voids 1 # Bowel Movements 1 - Exam patient is awake, comfortable, no acute distress, mildly short of breath Alert oriented 3 Examination of lower extremities shows edema 2+ bilaterally ACID CORRECTION HAND exam grossly intact - Labs CBC & Chem 7: 06/07/24 12:17 06/10/24 06:44 Labs: Abnormal Lab Results - Last 24 Hours (Table) 06/09/24 06/09/24 06/10/24 Range/Units 16:39 20:00 06:03 Sodium (137-145) mmol/L BUN (9-20) mg/dL Creatinine (0.66-1.25) mg/dL Glucose (74-99) mg/dL POC Glucose (mg/dL) 179 H 192 H 142 H (70-110) mg/dL 06/10/24 06/10/24 Range/Units 06:44 10:59 Sodium 135 L (137-145) mmol/L BUN 73 H (9-20) mg/dL Creatinine 2.53 H (0.66-1.25) mg/dL Glucose 132 H (74-99) mg/dL POC Glucose (mg/dL) 228 H (70-110) mg/dL Assessment and Plan Assessment: 1. Acute kidney injury ATN secondary to hypotension and cardiorenal syndrome. No evidence of obstructive uropathy on ultrasound of the kidneys. UA shows no protein and large blood and WBCs 2. 2. Chronic kidney disease stage IIIB with baseline creatinine 1.8-2 mg/dL secondary to nephrosclerosis. 3. Acute CHF with decreased ejection fraction of 20% 4. Coronary artery disease with history of coronary stents 5. Chronic A. fib 6. History of asthma/COPD being treated for acute exacerbation 7. Volume overload Plan: continue with IV Lasix Continue with farxiga. Repeat labs in a.m. Accurate I's and O's
--- NOTE | 2024-06-10 16:01 | P.PN ---
Progress Note - Text Progress Note Date: 06/10/24 Subjective 78-year-old male, past medical history of paroxysmal atrial fibrillation, coronary artery disease on medical therapy, hypertension, hyperlipidemia, diabetes mellitus type 2, family history of premature coronary artery disease. Patient had a cardioversion done October 2021 and patient states that he has been maintained in a sinus rhythm until recently. Patient had an office visit on 05/19/2024 as he was complaining at that time of intermittent episodes of p alpitations for a few days. He was found to be in atrial fibrillation with a right bundle branch block with a controlled ventricular rate at that time. It was recommended the patient's start iron amiodarone which he states he has been taking for the past 2 to 3 weeks. He states that he was very concerned regarding the side effects of amiodarone. Patient states he developed difficulty breathing, feet were swelling and he knew he was in atrial fibrillation. He presented to the hospital with A-fib with controlled ventricular rate. Patient has a history of sinus bradycardia when he is out of atrial fibrillation. Blood pressure 107/74, heart rate 98, pulse ox 96% on 2 L nasal cannula. 06/07/2024 Patient is seen and evaluated in room at bedside; reports some lightheadedness when gets up from bed and with ambulation; remains weak and reporting difficulty ambulating due to weakness Vital signs are reviewed temperature 97.6, pulse 75, respiration 18 and blood pressure 134/83 with O2 saturation 97% on 3 L; orthostatic vital signs are added Patient remains on metoprolol succinate 50 mg daily for atrial fibrillation; cardiology recommending to continue with current medications at this time --PT/OT consulted for evaluation and recommendations for discharge planning 06/08/2024 Patient is seen at bedside, no significant overnight events. Patient reports his difficulty breathing remains significant especially when he tries to walk around his room. Vital signs are reviewed temperature 97.4, pulse 69, respiration 20, blood pressure 104/67, and O2 saturation 97% on 2 L Patient was given one-time dose of Solu-Medrol 40 mg IV once and will start prednisone 40 mg p.o. daily tomorrow for continued shortness of breath and continued need for oxygen which the patient normally does not need at home. Patient has also been having dark urine with what appears to be sediment within so a urinalysis was ordered. June 09, 2024: 78-year-old male, follows with PCP Dr. Baker with a past medical history of atrial fibrillation on anticoagulation with Eliquis, coronary disease stent replacement, hypertension, hyperlipidemia, diabetes type 2 [id number], CKD and prior history of CVAstatus post stent trouble remembering things and prior history of left lower extremity DVT, anxiety/depression Sitting at the edge of the bed. Has a cough. Some shortness of breath. Bringing up some yellow sputum. Eating fair. Patient has chronic back pain is requested family to bring in the brace. DuoNeb. June 10, 2024: Sitting at the edge of the bed. Having a lot of bronchospasm and coughing. Lower extremity edema. He has tried. Remains on IV Lasix. Fluid restriction. Active Medications Albuterol/Ipratropium (Ipratropium-Albuterol 3 Ml Neb) 3 ml INHALATION RT-TID [facility] Last Admin: 06/10/24 11:52 Dose: 3 ml Apixaban (Apixaban 5 Mg Tab) 5 mg PO BID [facility]; Protocol Last Admin: 06/10/24 09:27 Dose: 5 mg Aspirin (Aspirin 81 Mg) 81 mg PO HS [facility] Last Admin: 06/09/24 21:19 Dose: 81 mg Atorvastatin Calcium (Atorvastatin 80 Mg Tab) 80 mg PO DAILY [facility] Last Admin: 06/10/24 09:27 Dose: 80 mg Budesonide (Budesonide 1 Mg/2 Ml Nebu) 1 mg INHALATION RT-BID [facility] Last Admin: 06/10/24 08:31 Dose: 1 mg Buspirone HCl (Buspirone Hcl 10 Mg Tab) 10 mg PO BID [facility] Last Admin: 06/10/24 09:27 Dose: 10 mg Citalopram Hydrobromide (Citalopram Hydrobromide 20 Mg Tab) 20 mg PO HS [facility] Last Admin: 06/09/24 21:19 Dose: 20 mg Dapagliflozin (Dapagliflozin Propanediol 5 Mg Tablet) 5 mg PO DAILY [facility] Last Admin: 06/10/24 09:27 Dose: 5 mg Fenofibrate (Fenofibrate 54 Mg Tab) 54 mg PO DAILY [facility] Last Admin: 06/10/24 09:27 Dose: 54 mg Furosemide (Furosemide 10 Mg/Ml 4 Ml Vial) 40 mg IV Q12HR [facility] Last Admin: 06/10/24 09:27 Dose: 40 mg Hydromorphone HCl (Hydromorphone 2 Mg/Ml 1 Ml Syringe) 1 mg IVP Q3HR PRN PRN Reason: Severe Pain (Scale 7 to 10) Insulin Aspart (Insulin Aspart (Novolog) 100 Unit/Ml Vial) 0 unit SQ ACHS [facility]; Protocol Last Admin: 06/10/24 13:31 Dose: 4 unit Magnesium Oxide (Magnesium Oxide 400 Mg Tab) 800 mg PO BID [facility] Last Admin: 06/10/24 09:27 Dose: 800 mg Metoprolol Succinate (Metoprolol Succinate (Er) 50 Mg Tab.Er.24h) 50 mg PO DAILY [facility] Last Admin: 06/10/24 09:27 Dose: 50 mg Naloxone HCl (Naloxone 0.4 Mg/Ml 1 Ml Vial) 0.2 mg IV Q2M PRN PRN Reason: Opioid Reversal Pantoprazole Sodium (Pantoprazole 40 Mg Tablet) 40 mg PO AC-BRKFST [facility] Last Admin: 06/10/24 06:35 Dose: 40 mg Petrolatum (Zinc Oxide Paste (Z-Guard) 1 Applic) 1 applic TOPICAL BID PRN; Protocol PRN Reason: Wound Healing Last Admin: 06/09/24 13:05 Dose: 1 applic Prednisone (Prednisone 20 Mg Tab) 40 mg PO DAILY [facility] Last Admin: 06/10/24 09:27 Dose: 40 mg Social history: 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 . Denies any history of smoking or alcohol. Physical examination: VITAL SIGNS: 96.7, 56, 18, 107 x 83, 98% on 2 L GENERAL: Sitting at the edge of the bed, some coughing EYES: Pupils equal. Conjunctiva normal. HEENT: External appearance of nose and ears normal, oral cavity grossly normal. NECK: JVD not raised; masses not palpable. HEART: First and second heart sounds are normal; edema present LUNGS: Respiratory rate increased, decreased breath sounds, some wheezing. ABDOMEN: Soft, nontender, liver spleen not palpable, no masses palpable. PSYCH: Alert and oriented x3; mood and affect normal. MUSCULOSKELETAL:No Clubbing/cyanosis;muscles-grossly intact Investigation: June 10: Sodium 135 potassium 4.6 BUN 73 creatinine 2.53 June 09: Sodium 135 BUN 64 creatinine 2.43 AST 70, ALT 81 Renal ultrasound: No evidence of obstructive uropathy or renal calculi Chest x-ray: Some vascular congestion bilateral pleural effusion cardiomegaly. 2D echocardiogram: EF 20%Mild to moderate TR. Troponin I 0.207 Assessment and plan: -Acute on chronic congestive heart failure from systolic dysfunction EF 20%. Ischemic cardiomyopathy: Slow to respond IV Lasix 40 mg every 12. fluid restriction 1500 cc a day. Emery wrap lower extremity # Acute kidney injury ATN secondary to hypotension and cardiorenal syndrome. No obstructive uropathy. Troponinemia is likely secondary to chronic kidney disease. No ACS #CKD stage IIIb:Likely nephrosclerosis, baseline creatinine 1.8-2 mg/dL. Follow creatinine #Persistent atrial fibrillation: Eliquis, metoprolol Cardiology following #CAD with prior history of stent in November 2020: Beta-jairo, aspirin #Intermittent asthma: DuoNeb. nebulized Pulmicort, prednisone #Depression: Celexa 20 mg nightly and BuSpar 10 mg twice daily #Essential hypertension: Beta-jairo #Hyperlipidemia: e Lipitor 80 mg and fenofibrate 54 mg p.o. daily Discussed with patient. Continue IV Lasix today. Repeat labs tomorrow.
[2024-06-10 16:37] LABS: Glucose,Whole Blood 230 mg/dL (70-110)
[2024-06-10 20:01] LABS: Glucose,Whole Blood 212 mg/dL (70-110)
[2024-06-11 06:08] LABS: Glucose,Whole Blood 243 mg/dL (70-110)
[2024-06-11 06:25] LABS: Anion Gap 12 mmol/L; Blood Urea Nitrogen 81 mg/dL (9-20); Carbon Dioxide 29 mmol/L (22-30); Chloride 96 mmol/L (98-107); Glucose 167 mg/dL (74-99); Potassium 4.2 mmol/L (3.5-5.1); Sodium 137 mmol/L (137-145)
[2024-06-11 06:26] LABS: African American GFR (CKD) 27 (>60 ml/min/1.73 sqM); Calcium 9.4 mg/dL (8.4-10.2); Non-African American GFR(CKD) 24 (>60 ml/min/1.73 sqM)
[2024-06-11 11:44] LABS: Glucose,Whole Blood 214 mg/dL (70-110)
--- NOTE | 2024-06-11 11:53 | P.PN ---
Subjective Patient is seen for follow-up for acute kidney injury and chronic kidney disease. Overall feels better. Shortness of breath has improved. Serum creatinine staying at 2.5 Maintained on IV Lasix Weight is down Objective - Vital Signs Vital signs: Vital Signs Temp 96.3 F L 06/11/24 10:57 Pulse 72 06/11/24 11:15 Resp 19 06/11/24 10:57 BP 127/74 06/11/24 10:57 Pulse Ox 97 06/11/24 07:53 FiO2 21 06/11/24 07:53 Intake & Output 06/10/24 06/11/24 06/11/24 18:59 06:59 18:59 Intake Total 540 540 Balance 540 540 Weight 102.7 kg 101.1 kg Intake: Oral 540 540 Other: Voiding Method Urinal Urinal Urinal - Exam patient is awake, comfortable, no acute distress, mildly short of breath Alert oriented 3 Examination of the heart S1 and S2 Examination of the lungs bilateral breath sounds are heard Abdomen is soft obese nontender Examination of lower extremities shows edema 2+ bilaterally, legs are wrapped [employer] exam grossly intact - Labs CBC & Chem 7: 06/07/24 12:17 06/11/24 05:46 Labs: Abnormal Lab Results - Last 24 Hours (Table) 06/10/24 06/10/24 06/11/24 Range/Units 16:35 20:00 05:46 Chloride 96 L (98-107) mmol/L BUN 81 H (9-20) mg/dL Creatinine 2.52 H (0.66-1.25) mg/dL Glucose 167 H (74-99) mg/dL POC Glucose (mg/dL) 230 H 212 H (70-110) mg/dL 06/11/24 06/11/24 Range/Units 06:07 11:43 Chloride (98-107) mmol/L BUN (9-20) mg/dL Creatinine (0.66-1.25) mg/dL Glucose (74-99) mg/dL POC Glucose (mg/dL) 243 H 214 H (70-110) mg/dL Assessment and Plan Assessment: 1. Acute kidney injury ATN secondary to hypotension and cardiorenal syndrome. No evidence of obstructive uropathy on ultrasound of the kidneys. UA shows no protein and large blood and WBCs 2. 2. Chronic kidney disease stage IIIB with baseline creatinine 1.8-2 mg/dL secondary to nephrosclerosis. 3. Acute CHF with decreased ejection fraction of 20% 4. Coronary artery disease with history of coronary stents 5. Chronic A. fib 6. History of asthma/COPD being treated for acute exacerbation 7. Volume overload, slowly improving Plan: continue with IV Lasix Continue with farxiga. Repeat labs in a.m. Accurate I's and O's
--- NOTE | 2024-06-11 15:22 | P.PN ---
Progress Note - Text Progress Note Date: 06/11/24 Subjective 78-year-old male, past medical history of paroxysmal atrial fibrillation, coronary artery disease on medical therapy, hypertension, hyperlipidemia, diabetes mellitus type 2, family history of premature coronary artery disease. Patient had a cardioversion done October 2021 and patient states that he has been maintained in a sinus rhythm until recently. Patient had an office visit on 05/19/2024 as he was complaining at that time of intermittent episodes of p alpitations for a few days. He was found to be in atrial fibrillation with a right bundle branch block with a controlled ventricular rate at that time. It was recommended the patient's start iron amiodarone which he states he has been taking for the past 2 to 3 weeks. He states that he was very concerned regarding the side effects of amiodarone. Patient states he developed difficulty breathing, feet were swelling and he knew he was in atrial fibrillation. He presented to the hospital with A-fib with controlled ventricular rate. Patient has a history of sinus bradycardia when he is out of atrial fibrillation. Blood pressure 107/74, heart rate 98, pulse ox 96% on 2 L nasal cannula. 06/07/2024 Patient is seen and evaluated in room at bedside; reports some lightheadedness when gets up from bed and with ambulation; remains weak and reporting difficulty ambulating due to weakness Vital signs are reviewed temperature 97.6, pulse 75, respiration 18 and blood pressure 134/83 with O2 saturation 97% on 3 L; orthostatic vital signs are added Patient remains on metoprolol succinate 50 mg daily for atrial fibrillation; cardiology recommending to continue with current medications at this time --PT/OT consulted for evaluation and recommendations for discharge planning 06/08/2024 Patient is seen at bedside, no significant overnight events. Patient reports his difficulty breathing remains significant especially when he tries to walk around his room. Vital signs are reviewed temperature 97.4, pulse 69, respiration 20, blood pressure 104/67, and O2 saturation 97% on 2 L Patient was given one-time dose of Solu-Medrol 40 mg IV once and will start prednisone 40 mg p.o. daily tomorrow for continued shortness of breath and continued need for oxygen which the patient normally does not need at home. Patient has also been having dark urine with what appears to be sediment within so a urinalysis was ordered. June 09, 2024: 78-year-old male, follows with PCP Dr. Baker with a past medical history of atrial fibrillation on anticoagulation with Eliquis, coronary disease stent replacement, hypertension, hyperlipidemia, diabetes type 2 [id number], CKD and prior history of CVAstatus post stent trouble remembering things and prior history of left lower extremity DVT, anxiety/depression Sitting at the edge of the bed. Has a cough. Some shortness of breath. Bringing up some yellow sputum. Eating fair. Patient has chronic back pain is requested family to bring in the brace. DuoNeb. June 10, 2024: Sitting at the edge of the bed. Having a lot of bronchospasm and coughing. Lower extremity edema. He has tried. Remains on IV Lasix. Fluid restriction. June 11, 2024: Up in a recliner. Some wheezing present but better. Some improvement lower extremity edema. Oral intake good. Remains on IV Lasix. Increase activity. Hold prednisone and nebulized Pulmicort. Active Medications Albuterol/Ipratropium (Ipratropium-Albuterol 3 Ml Neb) 3 ml INHALATION RT-TID [facility] Last Admin: 06/11/24 11:04 Dose: 3 ml Apixaban (Apixaban 5 Mg Tab) 5 mg PO BID [facility]; Protocol Last Admin: 06/11/24 09:23 Dose: 5 mg Aspirin (Aspirin 81 Mg) 81 mg PO HS [facility] Last Admin: 06/10/24 20:52 Dose: 81 mg Atorvastatin Calcium (Atorvastatin 80 Mg Tab) 80 mg PO DAILY [facility] Last Admin: 06/11/24 09:23 Dose: 80 mg Budesonide (Budesonide 1 Mg/2 Ml Nebu) 1 mg INHALATION RT-BID [facility] Last Admin: 06/11/24 07:50 Dose: 1 mg Buspirone HCl (Buspirone Hcl 10 Mg Tab) 10 mg PO BID [facility] Last Admin: 06/11/24 09:24 Dose: 10 mg Citalopram Hydrobromide (Citalopram Hydrobromide 20 Mg Tab) 20 mg PO HS [facility] Last Admin: 06/10/24 20:52 Dose: 20 mg Dapagliflozin (Dapagliflozin Propanediol 5 Mg Tablet) 5 mg PO DAILY [facility] Last Admin: 06/11/24 09:24 Dose: 5 mg Fenofibrate (Fenofibrate 54 Mg Tab) 54 mg PO DAILY [facility] Last Admin: 06/11/24 09:36 Dose: 54 mg Furosemide (Furosemide 10 Mg/Ml 4 Ml Vial) 40 mg IV Q12HR [facility] Last Admin: 06/11/24 09:24 Dose: 40 mg Hydromorphone HCl (Hydromorphone 2 Mg/Ml 1 Ml Syringe) 1 mg IVP Q3HR PRN PRN Reason: Severe Pain (Scale 7 to 10) Insulin Aspart (Insulin Aspart (Novolog) 100 Unit/Ml Vial) 0 unit SQ ACHS [facility]; Protocol Last Admin: 06/11/24 11:47 Dose: 4 unit Magnesium Oxide (Magnesium Oxide 400 Mg Tab) 800 mg PO BID [facility] Last Admin: 06/11/24 09:23 Dose: 800 mg Metoprolol Succinate (Metoprolol Succinate (Er) 50 Mg Tab.Er.24h) 50 mg PO DAILY [facility] Last Admin: 06/11/24 09:24 Dose: 50 mg Naloxone HCl (Naloxone 0.4 Mg/Ml 1 Ml Vial) 0.2 mg IV Q2M PRN PRN Reason: Opioid Reversal Pantoprazole Sodium (Pantoprazole 40 Mg Tablet) 40 mg PO AC-BRKFST [facility] Last Admin: 06/11/24 06:45 Dose: 40 mg Petrolatum (Zinc Oxide Paste (Z-Guard) 1 Applic) 1 applic TOPICAL BID PRN; Protocol PRN Reason: Wound Healing Last Admin: 06/09/24 13:05 Dose: 1 applic Prednisone (Prednisone 20 Mg Tab) 40 mg PO DAILY [facility] Last Admin: 06/11/24 09:23 Dose: 40 mg Social history: 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 . Denies any history of smoking or alcohol. Physical examination: VITAL SIGNS: 97.5, 67, 24, 100 1785, 94% room air GENERAL: Up in recliner, breathing better g EYES: Pupils equal. Conjunctiva normal. HEENT: External appearance of nose and ears normal, oral cavity grossly normal. NECK: JVD not raised; masses not palpable. HEART: First and second heart sounds are normal; edema present LUNGS: Respiratory rate increased, decreased breath sounds, some wheezing. ABDOMEN: Soft, nontender, liver spleen not palpable, no masses palpable. PSYCH: Alert and oriented x3; mood and affect normal. MUSCULOSKELETAL:No Clubbing/cyanosis;muscles-grossly intact Investigation: June 11: Potassium 4.2 BUN 81 creatinine 2.52 June 10: Sodium 135 potassium 4.6 BUN 73 creatinine 2.53 June 09: Sodium 135 BUN 64 creatinine 2.43 AST 70, ALT 81 Renal ultrasound: No evidence of obstructive uropathy or renal calculi Chest x-ray: Some vascular congestion bilateral pleural effusion cardiomegaly. 2D echocardiogram: EF 20%Mild to moderate TR. Troponin I 0.207 Assessment and plan: -Acute on chronic congestive heart failure from systolic dysfunction EF 20%. Ischemic cardiomyopathy: Improving IV Lasix 40 mg every 12. fluid restriction 1500 cc a day. Emery wrap lower extremity # Acute kidney injury ATN secondary to hypotension and cardiorenal syndrome. No obstructive uropathy. Troponinemia is likely secondary to chronic kidney disease. No ACS #CKD stage IIIb:Likely nephrosclerosis, baseline creatinine 1.8-2 mg/dL. Follow creatinine #Persistent atrial fibrillation: Eliquis, metoprolol Cardiology following #CAD with prior history of stent in November 2020: Beta-jairo, aspirin #Intermittent asthma: DuoNeb. nebulized Pulmicort, prednisone #Depression: Celexa 20 mg nightly and BuSpar 10 mg twice daily #Essential hypertension: Beta-jairo #Hyperlipidemia: e Lipitor 80 mg and fenofibrate 54 mg p.o. daily Increase activity. Continue with IV Lasix. Clinically improving
[2024-06-11 17:01] LABS: Glucose,Whole Blood 195 mg/dL (70-110)
[2024-06-11] MEDS: INSULIN ASPART (NovoLOG) 100 UNIT/ML VIAL SQ SCH (17:02)
[2024-06-11 20:06] LABS: Glucose,Whole Blood 190 mg/dL (70-110)
[2024-06-11 20:32] VITALS: RESP 18
[2024-06-12 04:57] VITALS: BP 109/73
[2024-06-12 06:06] LABS: Glucose,Whole Blood 177 mg/dL (70-110)
[2024-06-12 08:37] LABS: African American GFR (CKD) 30 (>60 ml/min/1.73 sqM); Anion Gap 11 mmol/L; Blood Urea Nitrogen 85 mg/dL (9-20); Calcium 9.3 mg/dL (8.4-10.2); Carbon Dioxide 30 mmol/L (22-30); Chloride 93 mmol/L (98-107); Glucose 238 mg/dL (74-99); Non-African American GFR(CKD) 26 (>60 ml/min/1.73 sqM); Potassium 4.2 mmol/L (3.5-5.1); Sodium 134 mmol/L (137-145)
--- NOTE | 2024-06-12 11:10 | P.PN ---
Subjective Patient is seen for follow-up for acute kidney injury and chronic kidney disease. Overall feels better. Shortness of breath has improved. Serum creatinine at 2.36 today Maintained on IV Lasix Weight is down Objective - Vital Signs Vital signs: Vital Signs Temp 98.0 F 06/12/24 04:00 Pulse 76 06/12/24 08:45 Resp 18 06/12/24 04:00 BP 109/73 06/12/24 04:00 Pulse Ox 97 06/12/24 04:00 FiO2 21 06/11/24 07:53 Intake & Output 06/11/24 06/12/24 06/12/24 18:59 06:59 18:59 Intake Total 918 Balance 918 Weight 101.2 kg Intake: Oral 918 Other: Voiding Method Urinal Urinal - Exam patient is awake, comfortable, no acute distress, mildly short of breath Alert oriented 3 Examination of the heart S1 and S2 Examination of the lungs bilateral breath sounds are heard Abdomen is soft obese nontender Examination of lower extremities shows edema trace bilaterally, improved [employer]MENT [employer] exam grossly intact - Labs CBC & Chem 7: 06/07/24 12:17 06/12/24 07:49 Labs: Abnormal Lab Results - Last 24 Hours (Table) 06/11/24 06/11/24 06/11/24 Range/Units 11:43 17:00 20:05 Sodium (137-145) mmol/L Chloride (98-107) mmol/L BUN (9-20) mg/dL Creatinine (0.66-1.25) mg/dL Glucose (74-99) mg/dL POC Glucose (mg/dL) 214 H 195 H 190 H (70-110) mg/dL 06/12/24 06/12/24 Range/Units 06:05 07:49 Sodium 134 L (137-145) mmol/L Chloride 93 L (98-107) mmol/L BUN 85 H (9-20) mg/dL Creatinine 2.36 H (0.66-1.25) mg/dL Glucose 238 H (74-99) mg/dL POC Glucose (mg/dL) 177 H (70-110) mg/dL Assessment and Plan Assessment: 1. Acute kidney injury ATN secondary to hypotension and cardiorenal syndrome. No evidence of obstructive uropathy on ultrasound of the kidneys. UA shows no protein and large blood and WBCs 2. 2. Chronic kidney disease stage IIIB with baseline creatinine 1.8-2 mg/dL secondary to nephrosclerosis. 3. Acute CHF with decreased ejection fraction of 20% 4. Coronary artery disease with history of coronary stents 5. Chronic A. fib 6. History of asthma/COPD being treated for acute exacerbation 7. Volume overload, improved Plan: okay to discharge patient on oral Lasix 40 mg twice a day Continue with farxiga. follow-up in the office in 1-2 weeks
[2024-06-12 12:02] LABS: Glucose,Whole Blood 251 mg/dL (70-110)
[2024-06-12] MEDS: LACTULOSE 20 GM/30 ML CUP PO ONE (12:18)
[2024-06-12 12:58] VITALS: PULSE 52
[2024-06-12 13:00] VITALS: TEMP 97.8
--- NOTE | 2024-06-12 15:22 | P.DS ---
Providers Date of admission: 06/03/24 20:39 Expected date of discharge: 06/12/24 Attending physician: Vidal Dominguez Consults: 06/08/24 15:37 Consult Physician Routine Consulting Provider: Eileen Crespo Consult Reason/Comments: REMI GREENE Do you want consulting provider notified?: Yes Primary care physician: [facility] Course: 78-year-old male, past medical history of paroxysmal atrial fibrillation, coronary artery disease on medical therapy, hypertension, hyperlipidemia, diabetes mellitus type 2, family history of premature coronary artery disease. Patient had a cardioversion done October 2021 and patient states that he has been maintained in a sinus rhythm until recently. Patient had an office visit on 05/19/2024 as he was complaining at that time of intermittent episodes of palpitations for a few days. He was found to be in atrial fibrillation with a right bundle branch block with a controlled ventricular rate at that time. It was recommended the patient's start iron amiodarone which he states he has been taking for the past 2 to 3 weeks. He states that he was very concerned regarding the side effects of amiodarone. Patient states he developed diffi culty breathing, feet were swelling and he knew he was in atrial fibrillation. He presented to the hospital with A-fib with controlled ventricular rate. Patient has a history of sinus bradycardia when he is out of atrial fibrillation. Blood pressure 107/74, heart rate 98, pulse ox 96% on 2 L nasal cannula. 06/07/2024 Patient is seen and evaluated in room at bedside; reports some lightheadedness when gets up from bed and with ambulation; remains weak and reporting difficulty ambulating due to weakness Vital signs are reviewed temperature 97.6, pulse 75, respiration 18 and blood pressure 134/83 with O2 saturation 97% on 3 L; orthostatic vital signs are added Patient remains on metoprolol succinate 50 mg daily for atrial fibrillation; cardiology recommending to continue with current medications at this time --PT/OT consulted for evaluation and recommendations for discharge planning 06/08/2024 Patient is seen at bedside, no significant overnight events. Patient reports his difficulty breathing remains significant especially when he tries to walk around his room. Vital signs are reviewed temperature 97.4, pulse 69, respiration 20, blood pressure 104/67, and O2 saturation 97% on 2 L Patient was given one-time dose of Solu-Medrol 40 mg IV once and will start prednisone 40 mg p.o. daily tomorrow for continued shortness of breath and continued need for oxygen which the patient normally does not need at home. Patient has also been having dark urine with what appears to be sediment within so a urinalysis was ordered. June 09, 2024: 78-year-old male, follows with PCP Dr. Baker with a past medical history of atrial fibrillation on anticoagulation with Eliquis, coronary disease stent replacement, hypertension, hyperlipidemia, diabetes type 2 [id number], CKD and prior history of CVAstatus post stent trouble remembering things and prior history of left lower extremity DVT, anxiety/depression Sitting at the edge of the bed. Has a cough. Some shortness of breath. Bringing up some yellow sputum. Eating fair. Patient has chronic back pain is requested family to bring in the brace. DuoNeb. June 10, 2024: Sitting at the edge of the bed. Having a lot of bronchospasm and coughing. Lower extremity edema. He has tried. Remains on IV Lasix. Fluid restriction. June 11, 2024: Up in a recliner. Some wheezing present but better. Some improvement lower extremity edema. Oral intake good. Remains on IV Lasix. Increase activity. Hold prednisone and nebulized Pulmicort. June 12, 2024: Doing much better. Edema better. Will be discharged on nebulizer, Symbicort, prednisone taper. Discussed. 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 . Denies any history of smoking or alcohol. Physical examination: VITAL SIGNS: 97.8, 52, 18, 109 x 73, 99% room air GENERAL: Sitting up, breathing much improved EYES: Pupils equal. Conjunctiva normal. HEENT: External appearance of nose and ears normal, oral cavity grossly normal. NECK: JVD not raised; masses not palpable. HEART: First and second heart sounds are normal; edema present LUNGS: Respiratory rate normal, decreased breath sounds, ABDOMEN: Soft, nontender, liver spleen not palpable, no masses palpable. PSYCH: Alert and oriented x3; mood and affect normal. MUSCULOSKELETAL:No Clubbing/cyanosis;muscles-grossly intact Investigation: June 12: Potassium 4.2 BUN 85 creatinine 2.36 June 11: Potassium 4.2 BUN 81 creatinine 2.52 June 10: Sodium 135 potassium 4.6 BUN 73 creatinine 2.53 June 09: Sodium 135 BUN 64 creatinine 2.43 AST 70, ALT 81 Renal ultrasound: No evidence of obstructive uropathy or renal calculi Chest x-ray: Some vascular congestion bilateral pleural effusion cardiomegaly. 2D echocardiogram: EF 20%Mild to moderate TR. Troponin I 0.207 Assessment and plan: -Acute on chronic congestive heart failure from systolic dysfunction EF 20%. Ischemic cardiomyopathy: Much improved IV Lasix now switched over to oral Lasix 40 mg twice daily.. fluid restriction 2000 cc a day. Emery wrap lower extremity # Acute kidney injury ATN secondary to hypotension and cardiorenal syndrome. No obstructive uropathy. Troponinemia is likely secondary to chronic kidney disease. No ACS #CKD stage IIIb:Likely nephrosclerosis, baseline creatinine 1.8-2 mg/dL. Follow creatinine #Persistent atrial fibrillation: Eliquis, metoprolol Cardiology following #CAD with prior history of stent in November 2020: Beta-jairo, aspirin #Intermittent asthma: DuoNeb. Prednisone taper #Depression: Celexa 20 mg nightly and BuSpar 10 mg twice daily #Essential hypertension: Beta-jairo #Hyperlipidemia: e Lipitor 80 mg and fenofibrate 54 mg p.o. daily Disposition: Home Plan - Discharge Summary Discharge Rx Participant: No New Discharge Prescriptions: New Ipratropium-Albuterol Nebulize [Duoneb 0.5 mg-3 mg/3 ml Soln] 3 ml INHALATION RT-TID #90 each predniSONE 10 mg PO DAILY #30 tab Budesonide/Formoterol Fumarate [Symbicort 160-4.5 Mcg Inhaler] 1 puff INHALATION BID #10.2 gm Metoprolol Succinate (ER) [Toprol XL] 50 mg PO DAILY #30 tab Continue allopurinoL [Zyloprim] 100 mg PO DAILY Isosorbide Mononitrate ER [Imdur] 30 mg PO DAILY Clotrimazole Cream [Lotrimin Cream] 1 applic TOPICAL BID PRN PRN Reason: Skin Irritation metFORMIN HCL ER [Glucophage XR] 500 mg PO HS Fenofibrate,Micronized [Fenofibrate] 67 mg PO DAILY Apixaban [Eliquis] 5 mg PO BID busPIRone HCL 10 mg PO BID Citalopram Hydrobromide [CeleXA] 20 mg PO HS Atorvastatin [Lipitor] 80 mg PO DAILY Albuterol Sulfate [Albuterol Sulfate Hfa] 2 puff INHALATION RT-Q4H PRN PRN Reason: Shortness Of Breath Omeprazole 20 mg PO HS Aspirin [Children's Aspirin] 81 mg PO HS Dapagliflozin Propanediol [Farxiga] 5 mg PO DAILY Changed Furosemide [Lasix] 40 mg PO BID #60 Magnesium Oxide [Mag-Ox] 400 mg PO BID #0 Discontinued Amiodarone [Cordarone] 200 mg PO BID amLODIPine [Norvasc] 5 mg PO DAILY #30 tab lisinopriL [Zestril] 10 mg PO HS #30 tab Discharge Medication List Albuterol Sulfate [Albuterol Sulfate Hfa] 2 puff INHALATION RT-Q4H PRN 09/02/21 [History] Apixaban [Eliquis] 5 mg PO BID 09/02/21 [History] Atorvastatin [Lipitor] 80 mg PO DAILY 09/02/21 [History] Citalopram Hydrobromide [CeleXA] 20 mg PO HS 09/02/21 [History] Fenofibrate,Micronized [Fenofibrate] 67 mg PO DAILY 09/02/21 [History] Omeprazole 20 mg PO HS 09/02/21 [History] allopurinoL [Zyloprim] 100 mg PO DAILY 09/02/21 [History] busPIRone HCL 10 mg PO BID 09/02/21 [History] metFORMIN HCL ER [Glucophage XR] 500 mg PO HS 09/02/21 [History] Aspirin [Children's Aspirin] 81 mg PO HS 06/13/22 [History] Isosorbide Mononitrate ER [Imdur] 30 mg PO DAILY 06/16/23 [History] Dapagliflozin Propanediol [Farxiga] 5 mg PO DAILY 12/05/23 [History] Clotrimazole Cream [Lotrimin Cream] 1 applic TOPICAL BID PRN 06/03/24 [History] Budesonide/Formoterol Fumarate [Symbicort 160-4.5 Mcg Inhaler] 1 puff INHALATION BID #10.2 gm 06/12/24 [Rx] Furosemide [Lasix] 40 mg PO BID #60 06/12/24 [Rx] Ipratropium-Albuterol Nebulize [Duoneb 0.5 mg-3 mg/3 ml Soln] 3 ml INHALATION RT-TID #90 each 06/12/24 [Rx] Magnesium Oxide [Mag-Ox] 400 mg PO BID #0 06/12/24 [Rx] Metoprolol Succinate (ER) [Toprol XL] 50 mg PO DAILY #30 tab 06/12/24 [Rx] predniSONE 10 mg PO DAILY #30 tab 06/12/24 [Rx] Follow up Appointment(s)/Referral(s): Eileen Crespo MD [STAFF PHYSICIAN] - 2 Weeks (Office will call you with appointment date and time ) Fernando Baker MD [Primary Care Provider] - 1-2 days (Office closed please call on Saturday and set up appointment to be seen ) Rosemary [facility], [NON-STAFF] - (Homecare will reach out and set up appointment time to come out to your home) Andrey Wellington MD [STAFF PHYSICIAN] - 06/19/24 4:15 pm Patient Instructions/Handouts: Heart Failure (DC), COPD (Chronic Obstructive Pulmonary Disease) (DC) Activity/Diet/Wound Care/Special Instructions: fluid restrict - 2000 cc/day
== END 2024-06-12 16:06 | disposition home or self-care (01) | DRG 308 ==
LOC: EC 17:42 → 3SCARD 20:38 → OBSVTOIN 20:39 → 3SCARD 06-04 08:28
PROVIDERS: ADMIT Hospitalist; ATTEND Hospitalist
DX: I48.21 Permanent atrial fibrillation (principal); I50.23 Acute on chronic systolic (congestive) heart failure; N17.0 Acute kidney failure with tubular necrosis; J44.1 Chronic obstructive pulmonary disease with (acute) exacerbation; I13.0 Hypertensive heart and chronic kidney disease with heart failure and stage 1 through stage 4 chronic kidney disease, or unspecified chronic kidney disease; N18.32 Chronic kidney disease, stage 3b; E11.22 Type 2 diabetes mellitus with diabetic chronic kidney disease; I08.1 Rheumatic disorders of both mitral and tricuspid valves; J45.20 Mild intermittent asthma, uncomplicated; F32.A Depression, unspecified; I25.5 Ischemic cardiomyopathy; I25.10 Atherosclerotic heart disease of native coronary artery without angina pectoris; E78.5 Hyperlipidemia, unspecified; I45.10 Unspecified right bundle-branch block; F41.9 Anxiety disorder, unspecified; G89.29 Other chronic pain; I95.9 Hypotension, unspecified; Z79.01 Long term (current) use of anticoagulants; T46.2X5A Adverse effect of other antidysrhythmic drugs, initial encounter; Z79.84 Long term (current) use of oral hypoglycemic drugs; Z79.82 Long term (current) use of aspirin; Z79.899 Other long term (current) drug therapy; I25.2 Old myocardial infarction; Z95.5 Presence of coronary angioplasty implant and graft; Z86.718 Personal history of other venous thrombosis and embolism; Z86.73 Personal history of transient ischemic attack (TIA), and cerebral infarction without residual deficits; M54.9 Dorsalgia, unspecified
CPT/HCPCS: 36415; 71045; 71046; 76770; 80048; 80053; 81001; 82570; 83690; 83735; 83880; 83935; 84100; 84300; 84443; 84484; 84540; 85025; 85027; 85610; 85730; 93005; 93306; 94640; 94760; 96361; 96374; 99291

== ENCOUNTER 2024-06-18 12:34 | Inpatient (IN) | payer MEDICARE, OTHER ==
[2024-06-18 12:43] LABS: Glucose,Whole Blood 451 mg/dL (70-110)
--- NOTE | 2024-06-18 12:52 | ED ---
General Adult HPI - General Chief complaint: Weakness Stated complaint: thrush/weakness/hyperglycemia Time Seen by Provider: 06/18/24 12:35 Source: patient, EMS, RN notes reviewed, old records reviewed Mode of arrival: EMS - History of Present Illness Initial comments: This 78-year-old male who presents to the emergency department with a past medical history significant for excessive heart failure. Patient states he comes in today because he had difficulty breathing weakness in his legs and swelling is increased in his legs. Patient denies any chest pain or palpitations. Patient has a headache patient has numbness weakness. Patient has abdominal pain patient has any nausea vomiting diarrhea. Patient states he was recently in the hospital. - Related Data Home Medications Medication Instructions Recorded Confirmed Albuterol Sulfate [Albuterol 2 puff INHALATION RT-Q4H PRN 09/02/21 06/03/24 Sulfate Hfa] Apixaban [Eliquis] 5 mg PO BID 09/02/21 06/03/24 Atorvastatin [Lipitor] 80 mg PO DAILY 09/02/21 06/03/24 Citalopram Hydrobromide [CeleXA] 20 mg PO HS 09/02/21 06/03/24 Fenofibrate,Micronized 67 mg PO DAILY 09/02/21 06/03/24 [Fenofibrate] Omeprazole 20 mg PO HS 09/02/21 06/03/24 allopurinoL [Zyloprim] 100 mg PO DAILY 09/02/21 06/03/24 busPIRone HCL 10 mg PO BID 09/02/21 06/03/24 metFORMIN HCL ER [Glucophage XR] 500 mg PO HS 09/02/21 06/03/24 Aspirin [Children's Aspirin] 81 mg PO HS 06/13/22 06/03/24 Isosorbide Mononitrate ER [Imdur] 30 mg PO DAILY 06/16/23 06/03/24 Dapagliflozin Propanediol [Farxiga] 5 mg PO DAILY 12/05/23 06/03/24 Clotrimazole Cream [Lotrimin Cream] 1 applic TOPICAL BID PRN 06/03/24 06/03/24 Previous Rx's Medication Instructions Recorded Budesonide/Formoterol Fumarate 1 puff INHALATION BID #10.2 gm 06/12/24 [Symbicort 160-4.5 Mcg Inhaler] Furosemide [Lasix] 40 mg PO BID #60 06/12/24 Ipratropium-Albuterol Nebulize 3 ml INHALATION RT-TID #90 each 06/12/24 [Duoneb 0.5 mg-3 mg/3 ml Soln] Magnesium Oxide [Mag-Ox] 400 mg PO BID #0 06/12/24 Metoprolol Succinate (ER) [Toprol 50 mg PO DAILY #30 tab 06/12/24 XL] predniSONE 10 mg PO DAILY #30 tab 06/12/24 Allergies Allergy/AdvReac Type Severity Reaction Status Date / Time No Known Allergies Allergy Verified 06/03/24 20:51 Review of Systems ROS Statement: Those systems with pertinent positive or pertinent negative responses have been documented in the HPI. ROS Other: All systems not noted in ROS Statement are negative. Past Medical History Past Medical History: Atrial Fibrillation, Asthma, Coronary Artery Disease (CAD), Chest Pain / Angina, CVA/TIA, Diabetes Mellitus, Deep Vein Thrombosis (DVT), GERD/Reflux, Hyperlipidemia, Hypertension, Myocardial Infarction ([place]), Osteoarthritis (OA), Renal Disease, Skin Disorder Additional Past Medical History / Comment(s): Hx CVA 11/30, had stent placed. Some trouble remembering things since. Hx left DVT. 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 Current vision problems and headaches. Psorasis. Gout. Last Myocardial Infarction Date:: 09/02 History of Any Multi-Drug Resistant Organisms: None Reported Past Surgical History: Heart Catheterization With Stent, Orthopedic Surgery Additional Past Surgical History / Comment(s): Left knee surgery, right shoulder surgery, bilateral cataract surgery. eye inplants Past Anesthesia/Blood Transfusion Reactions: No Reported Reaction, Motion Sickness Date of Last Stent Placement:: 11/2020 Past Psychological History: Anxiety, Depression Smoking Status: Never smoker Past Alcohol Use History: None Reported Past Drug Use History: None Reported - Past Family History Mother Family Medical History: Dementia Additional Family Medical History / Comment(s): at 58 years old of Alzhe den disease. Brother(s) Family Medical History: CVA/TIA, Dementia Father Family Medical History: Diabetes Mellitus Additional Family Medical History / Comment(s): of old age at 92 years old. Sister(s) Family Medical History: Cancer, Coronary Artery Disease (CAD) Additional Family Medical History / Comment(s): of lung cancer. General Exam - General Exam Comments Initial Comments: GENERAL: Patient is well-developed and well-nourished. Patient is nontoxic and well- hydrated and is in mild distress. ENT: Neck is soft and supple. No significant lymphadenopathy is noted. Oropharynx is clear. Moist mucous membranes. Neck has full range of motion without eliciting any pain. EYES: The sclera were anicteric and conjunctiva were pink and moist. Extraocular movements were intact and pupils were equal round and reactive to light. Eyelids were unremarkable. PULMONARY: Unlabored respirations. Good breath sounds bilaterally. No audible rales rhonchi or wheezing was noted. CARDIOVASCULAR: There is a regular rate and rhythm without any murmurs gallops or rubs. ABDOMEN: Soft and nontender with normal bowel sounds. SKIN: Skin is clear with no lesions or rashes and otherwise unremarkable. NEUROLOGIC: Patient is alert and oriented x3. Cranial nerves II through XII are grossly intact. Motor and sensory are also intact. Normal speech, volume and content. Symmetrical smile. MUSCULOSKELETAL: Normal extremities with adequate strength and full range of motion. 2+ edema bilaterally LYMPHATICS: No significant lymphadenopathy is noted PSYCHIATRIC: Normal psychiatric evaluation. Course Vital Signs 06/18/24 06/18/24 06/18/24 12:35 13:27 14:03 Temperature 97.7 F Pulse Rate 81 Respiratory 20 Rate Blood Pressure 112/79 O2 Sat by Pulse 97 97 93 L Oximetry 06/18/24 14:32 Temperature Pulse Rate 72 Respiratory 16 Rate Blood Pressure 114/71 O2 Sat by Pulse 97 Oximetry Medical Decision Making - Medical Decision Making EKG is interpreted by myself EKG shows atrial fibrillation at 67 bpm QRS is 196 QT interval is 496 QTc is 511. Patient's EKG shows a right bundle branch block. Was pt. sent in by a medical professional or institution (, PA, DENITRATOR, urgent care, hospital, or custodial...) When possible be specific @ -No Did you speak to anyone other than the patient for history (EMS, parent, last week while you are down there just checking out med make make sure everything is okay, police, friend...)? What history was obtained from this source @ -No Did you review nursing and triage notes (agree or disagree)? Why? @ -I reviewed and agree with nursing and triage notes Were old charts reviewed (outside hosp., previous admission, EMS record, old EKG, old radiological studies, urgent care reports/EKG's, custodial records)? Report findings @ -No old charts were reviewed Differential Diagnosis? @ -Differential dyspnea EKG interpreted by me (3pts min.). @ -As above X-rays interpreted by me (1pt min.). @ -Chest x-ray shows pleural effusions CT interpreted by me (1pt min.). @ -None done U/S interpreted by me (1pt. min.). @ -None done What testing was considered but not performed or refused? (CT, X-rays, U/S, labs)? Why? @ -None What meds were considered but not given or refused? Why? @ -None Did you discuss the management of the patient with other professionals (professionals i.e. , PA, DENITRATOR, lab, RT, psych nurse, social media campaign manager, copper plater, teacher, police liaison officer, shoe parts caser)? Give summary @ -I spoke with Dr. Dominguez and he agreed to admit the patient Was smoking cessation discussed for >3mins.? @ -No Was critical care preformed (if so, how long)? @ -No Were there social determinants of health that impacted care today? How? (Homelessness, low income, unemployed, alcoholism, drug addiction, transportation, low edu. Level, literacy, decrease access to med. care, senior living, rehab)? @ -No Was there de-escalation of care discussed even if they declined (Discuss DNR or withdrawal of care, Hospice)? DNR status @ -No What co-morbidities impacted this encounter? (DM, HTN, Smoking, COPD, CAD, Cancer, CVA, ARF, Chemo, Hep., AIDS, mental health diagnosis, sleep apnea, morbid obesity)? @ -None Was patient admitted / discharged? Hospital course, mention meds given and route, prescriptions, significant lab abnormalities, going to OR and other pertinent info. @ -Patient's troponin was elevated and it was slightly more elevated than it has been on his previous visits. Patient also had a significantly elevated BUN again higher than his previous visits. Patient has an elevated white count with elevated lactic acid. Patient's liver enzymes are also diffusely elevated. Dr. Dominguez with the patient Undiagnosed new problem with uncertain prognosis? @ -No Drug Therapy requiring intensive monitoring for toxicity (Heparin, Nitro, Insulin, Cardizem)? @ -No Were any procedures done? @ -No Diagnosis/symptom? @ -Dyspnea Acute, or Chronic, or Acute on Chronic? @ -Acute on chronic Uncomplicated (without systemic symptoms) or Complicated (systemic symptoms)? @ -Complicated Side effects of treatment? @ -No Exacerbation, Progression, or Severe Exacerbation? @ -No Poses a threat to life or bodily function? How? (Chest pain, [place], [place], pneumonia, PE, COPD, DKA, ARF, appy, cholecystitis, CVA, Diverticulitis, Homicidal, Suicidal, threat to staff... and all critical care pts) @ -Yes this can lead to hypoxia and endorgan dysfunction Diagnosis/symptom? @ -Liver enzymes elevation Acute, or Chronic, or Acute on Chronic? @ -Acute Uncomplicated (without systemic symptoms) or Complicated (systemic symptoms)? @ -Complicated Side effects of treatment? @ -None Exacerbation, Progression, or Severe Exacerbation] @ -No Poses a threat to life or bodily function? @ -No Diagnosis/symptom? @ -NSTEMI Acute, or Chronic, or Acute on Chronic? @ -Acute Uncomplicated (without systemic symptoms) or Complicated (systemic symptoms)? @ -Complicated Side effects of treatment? @ -None Exacerbation, Progression, or Severe Exacerbation] @ -No Poses a threat to life or bodily function? @ -Yes this could lead to endorgan dysfunction - Lab Data Result diagrams: 06/18/24 12:58 06/18/24 12:58 Lab Results 06/18/24 06/18/24 06/18/24 Range/Units 12:42 12:58 12:58 WBC 17.0 H (3.8-10.6) k/uL RBC 5.42 (4.30-5.90) m/uL Hgb 15.1 (13.0-17.5) gm/dL Hct 48.5 (39.0-53.0) % MCV 89.5 (80.0-100.0) fL MCH 27.8 (25.0-35.0) pg MCHC 31.1 (31.0-37.0) g/dL RDW 15.7 H (11.5-15.5) % Plt Count 197 (150-450) k/uL MPV 8.7 Neutrophils % 90 % Lymphocytes % 4 % Monocytes % 4 % Eosinophils % 1 % Basophils % 0 % Neutrophils # 15.3 H (1.3-7.7) k/uL Lymphocytes # 0.7 L (1.0-4.8) k/uL Monocytes # 0.8 (0-1.0) k/uL Eosinophils # 0.1 (0-0.7) k/uL Basophils # 0.0 (0-0.2) k/uL Hypochromasia Slight PT 15.7 H (10.0-12.5) sec INR 1.5 H (<1.2) APTT 24.5 (22.0-30.0) sec Sodium (137-145) mmol/L Potassium (3.5-5.1) mmol/L Chloride (98-107) mmol/L Carbon Dioxide (22-30) mmol/L Anion Gap mmol/L BUN (9-20) mg/dL Creatinine (0.66-1.25) mg/dL Est GFR (CKD-EPI)AfAm (>60 ml/min/1.73 sqM) Est GFR (CKD-EPI)NonAf (>60 ml/min/1.73 sqM) Glucose (74-99) mg/dL POC Glucose (mg/dL) 451 H (70-110) mg/dL POC Glu Mock Up Maker ID [place] Plasma Lactic Acid Ron (0.7-2.0) mmol/L Calcium (8.4-10.2) mg/dL Magnesium (1.6-2.3) mg/dL Total Bilirubin (0.2-1.3) mg/dL AST (17-59) U/L ALT (4-49) U/L Alkaline Phosphatase (38-126) U/L Troponin I (0.000-0.034) ng/mL NT-Pro-B Natriuret Pep pg/mL Total Protein (6.3-8.2) g/dL Albumin (3.5-5.0) g/dL Urine Color Urine Appearance (Clear) Urine pH (5.0-8.0) Ur Specific [place] (1.001-1.035) Urine Protein (Negative) Urine Glucose (UA) (Negative) Urine Ketones (Negative) Urine Blood (Negative) Urine Nitrite (Negative) Urine Bilirubin (Negative) Urine Urobilinogen (<2.0) mg/dL Ur Leukocyte Esterase (Negative) Urine RBC (0-5) /hpf Urine WBC (0-5) /hpf Urine WBC Clumps (None) /hpf Hyaline Casts (0-2) /lpf Urine Mucus (None) /hpf 06/18/24 06/18/24 06/18/24 Range/Units 12:58 12:58 12:58 WBC (3.8-10.6) k/uL RBC (4.30-5.90) m/uL Hgb (13.0-17.5) gm/dL Hct (39.0-53.0) % MCV (80.0-100.0) fL MCH (25.0-35.0) pg MCHC (31.0-37.0) g/dL RDW (11.5-15.5) % Plt Count (150-450) k/uL MPV Neutrophils % % Lymphocytes % % Monocytes % % Eosinophils % % Basophils % % Neutrophils # (1.3-7.7) k/uL Lymphocytes # (1.0-4.8) k/uL Monocytes # (0-1.0) k/uL Eosinophils # (0-0.7) k/uL Basophils # (0-0.2) k/uL Hypochromasia PT (10.0-12.5) sec INR (<1.2) APTT (22.0-30.0) sec Sodium 132 L (137-145) mmol/L Potassium 4.3 (3.5-5.1) mmol/L Chloride 97 L (98-107) mmol/L Carbon Dioxide 30 (22-30) mmol/L Anion Gap 5 mmol/L BUN 102 H* (9-20) mg/dL Creatinine 2.30 H (0.66-1.25) mg/dL Est GFR (CKD-EPI)AfAm 31 (>60 ml/min/1.73 sqM) Est GFR (CKD-EPI)NonAf 26 (>60 ml/min/1.73 sqM) Glucose 348 H (74-99) mg/dL POC Glucose (mg/dL) (70-110) mg/dL POC Glu Mock Up Maker ID Plasma Lactic Acid Ron 2.9 H* (0.7-2.0) mmol/L Calcium 8.5 (8.4-10.2) mg/dL Magnesium 2.6 H (1.6-2.3) mg/dL Total Bilirubin 2.7 H (0.2-1.3) mg/dL AST 149 H (17-59) U/L ALT 187 H (4-49) U/L Alkaline Phosphatase 297 H (38-126) U/L Troponin I 0.470 H* (0.000-0.034) ng/mL NT-Pro-B Natriuret Pep 78849 pg/mL Total Protein 5.7 L (6.3-8.2) g/dL Albumin 3.4 L (3.5-5.0) g/dL Urine Color Urine Appearance (Clear) Urine pH (5.0-8.0) Ur Specific [place] (1.001-1.035) Urine Protein (Negative) Urine Glucose (UA) (Negative) Urine Ketones (Negative) Urine Blood (Negative) Urine Nitrite (Negative) Urine Bilirubin (Negative) Urine Urobilinogen (<2.0) mg/dL Ur Leukocyte Esterase (Negative) Urine RBC (0-5) /hpf Urine WBC (0-5) /hpf Urine WBC Clumps (None) /hpf Hyaline Casts (0-2) /lpf Urine Mucus (None) /hpf 06/18/24 Range/Units 13:19 WBC (3.8-10.6) k/uL RBC (4.30-5.90) m/uL Hgb (13.0-17.5) gm/dL Hct (39.0-53.0) % MCV (80.0-100.0) fL MCH (25.0-35.0) pg MCHC (31.0-37.0) g/dL RDW (11.5-15.5) % Plt Count (150-450) k/uL MPV Neutrophils % % Lymphocytes % % Monocytes % % Eosinophils % % Basophils % % Neutrophils # (1.3-7.7) k/uL Lymphocytes # (1.0-4.8) k/uL Monocytes # (0-1.0) k/uL Eosinophils # (0-0.7) k/uL Basophils # (0-0.2) k/uL Hypochromasia PT (10.0-12.5) sec INR (<1.2) APTT (22.0-30.0) sec Sodium (137-145) mmol/L Potassium (3.5-5.1) mmol/L Chloride (98-107) mmol/L Carbon Dioxide (22-30) mmol/L Anion Gap mmol/L BUN (9-20) mg/dL Creatinine (0.66-1.25) mg/dL Est GFR (CKD-EPI)AfAm (>60 ml/min/1.73 sqM) Est GFR (CKD-EPI)NonAf (>60 ml/min/1.73 sqM) Glucose (74-99) mg/dL POC Glucose (mg/dL) (70-110) mg/dL POC Glu Mock Up Maker ID Plasma Lactic Acid Ron (0.7-2.0) mmol/L Calcium (8.4-10.2) mg/dL Magnesium (1.6-2.3) mg/dL Total Bilirubin (0.2-1.3) mg/dL AST (17-59) U/L ALT (4-49) U/L Alkaline Phosphatase (38-126) U/L Troponin I (0.000-0.034) ng/mL NT-Pro-B Natriuret Pep pg/mL Total Protein (6.3-8.2) g/dL Albumin (3.5-5.0) g/dL Urine Color Colorless Urine Appearance Clear (Clear) Urine pH 5.5 (5.0-8.0) Ur Specific [place] 1.014 (1.001-1.035) Urine Protein Negative (Negative) Urine Glucose (UA) 4+ H (Negative) Urine Ketones Negative (Negative) Urine Blood Large H (Negative) Urine Nitrite Negative (Negative) Urine Bilirubin Negative (Negative) Urine Urobilinogen <2.0 (<2.0) mg/dL Ur Leukocyte Esterase Negative (Negative) Urine RBC 115 H (0-5) /hpf Urine WBC 1 (0-5) /hpf Urine WBC Clumps Rare H (None) /hpf Hyaline Casts 1 (0-2) /lpf Urine Mucus Rare H (None) /hpf Disposition Clinical Impression: NSTEMI (non-ST elevated myocardial infarction), Elevated liver enzymes, Uremia Disposition: ADMITTED IP TO THIS HOSP Referrals: Fernando Baker MD [Primary Care Provider] - 1-2 days Time of Disposition: 15:46
[2024-06-18 13:32] LABS: Basophils % (A) 0 %; Eosinophils # (A) 0.1 k/uL (0-0.7); Eosinophils % (A) 1 %; HCT 48.5 % (39.0-53.0); HGB 15.1 gm/dL (13.0-17.5); Hypochromasia Slight; Lymphocytes # (A) 0.7 k/uL (1.0-4.8); Lymphocytes % (A) 4 %; MCH 27.8 pg (25.0-35.0); MCHC 31.1 g/dL (31.0-37.0); MCV 89.5 fL (80.0-100.0); Mean Platelet Volume 8.7; Monocytes # (A) 0.8 k/uL (0-1.0); Monocytes % (A) 4 %; Neutrophils # (A) 15.3 k/uL (1.3-7.7); Neutrophils % (A) 90 %; Platelet Count 197 k/uL (150-450); RBC 5.42 m/uL (4.30-5.90); RDW 15.7 % (11.5-15.5)
[2024-06-18 13:40] LABS: Appearance,Urine Clear (Clear); Bilirubin,Urine Negative (Negative); Blood,Urine Large (Negative); Color,Urine Colorless; Glucose,Urine (UA) 4+ (Negative); Hyaline Casts,Urine 1 /lpf (0-2); Ketones,Urine Negative (Negative); Leukocyte Esterase,Urine Negative (Negative); Mucus,Urine Rare /hpf; Nitrite,Urine Negative (Negative); PH, Urine 5.5 (5.0-8.0); Protein,Urine Negative (Negative); RBC,Urine 115 /hpf (0-5); Specific Gravity,Urine 1.014 (1.001-1.035); Urobilinogen,Urine <2.0 mg/dL (<2.0); WBC,Urine 1 /hpf (0-5)
[2024-06-18 13:43] LABS: INR 1.5 (<1.2); Partial Thromboplastin Time 24.5 sec (22.0-30.0); Prothrombin Time 15.7 sec (10.0-12.5)
[2024-06-18 14:04] LABS: ALT 187 U/L (4-49); AST 149 U/L (17-59); African American GFR (CKD) 31 (>60 ml/min/1.73 sqM); Albumin 3.4 g/dL (3.5-5.0); Alkaline Phosphatase 297 U/L (38-126); Anion Gap 5 mmol/L; Calcium 8.5 mg/dL (8.4-10.2); Carbon Dioxide 30 mmol/L (22-30); Chloride 97 mmol/L (98-107); Glucose 348 mg/dL (74-99); Magnesium 2.6 mg/dL (1.6-2.3); Non-African American GFR(CKD) 26 (>60 ml/min/1.73 sqM); Potassium 4.3 mmol/L (3.5-5.1); Sodium 132 mmol/L (137-145); Total Bilirubin 2.7 mg/dL (0.2-1.3); Total Protein 5.7 g/dL (6.3-8.2)
[2024-06-18 14:06] LABS: NT-Pro-B-Type Natriuretic Pept 16700 pg/mL
[2024-06-18 14:13] LABS: Blood Urea Nitrogen 102 mg/dL (9-20)
--- NOTE | 2024-06-18 14:36 | XR ---
EXAMINATION TYPE: XR chest 2V DATE OF EXAM: 06/18/2024 COMPARISON: NONE CLINICAL INDICATION: Male, 78 years old with history of Weakness; , TECHNIQUE: XR chest 2V views of the chest. FINDINGS: Bilateral consolidation and small effusion. Heart is enlarged. There is no pneumothorax. Arthropathy of the shoulders and degenerative change of the spine. IMPRESSION: 1. Stable bilateral lower lobe infiltrate and small pleural effusion.. [facility], , 06/18/2024 2:34 PM
[2024-06-18] MEDS ORDERED: NITROGLYCERIN SL TABS 0.4 MG TAB SUBLINGUAL PRN (15:50)
[2024-06-18] MEDS: NITROGLYCERIN OINT 1 INCH/GM PACKET TOPICAL SCH (17:15)
--- NOTE | 2024-06-18 19:39 | P.HPIM ---
History of Present Illness H&P Date: 06/18/24 Chief Complaint: Increased swelling, decreased activity 78-year-old male, follows with PCP Dr. Baker with a past medical history of atrial fibrillation on anticoagulation with Eliquis, coronary disease stent replacement, hypertension, hyperlipidemia, diabetes type 2 non-insulin- dependent, CKD and prior history of CVAstatus post stent trouble remembering things and prior history of left lower extremity DVT, anxiety/depression. Chronic back pain does use a brace Patient presents with increasing swelling of the legs. Finding it difficult to walk. Decreased appetite. Recently diagnosed with UTI was given antibiotic. Does use a walker. Just weak and tired. Also short of breath. Some orthopnea. Review of systems: GEN.: Decreased appetite tired EYES: None HEENT: None NECK: None RESPIRATORY: Short of breath. 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 . Denies any history of smoking or alcohol. Physical examination: VITAL SIGNS: 87.7, 72, 16, 114/71, 97% room air GENERAL: BMI 32, reclining bed awake tired EYES: Pupils equal. Conjunctiva normal. HEENT: External appearance of nose and ears normal, oral cavity grossly normal. NECK: JVD not raised; masses not palpable. HEART: First and second heart sounds are normal; significant edema LUNGS: Respiratory rate increased, decreased breath sounds, ABDOMEN: Soft, nontender, liver spleen not palpable, no masses palpable. PSYCH: Alert and oriented x3; mood and affect with anxious MUSCULOSKELETAL:No Clubbing/cyanosis;muscles-grossly intact Investigation: June 18: White count 17 hemoglobin 15.1 platelets 197 sodium 132 potassium 4.3 BUN 102 creatinine 2.3 AST 149 ALT 187 Troponin I 0.4, 0.4 proBNP 69900 EKG tracing personally reviewed by me-atrial fibrillation. Right bundle dannielle block pattern. ST-T wave changes. Chest x-ray film personally reviewed by me-cardiomegaly. Pulm edema. Pleural effusion Recent labs June 12: Potassium 4.2 BUN 85 creatinine 2.36 Renal ultrasound: No evidence of obstructive uropathy or renal calculi 2D echocardiogram: EF 20%: Mild to moderate TR. Assessment and plan: -Acute on chronic congestive heart failure from systolic dysfunction EF 20%. Ischemic cardiomyopathy: Lasix drip 10 mg an hour. Strict I's and O's. Fluid restriction. Follow labs closely # Acute kidney injury ATN secondary to hypotension and cardiorenal syndrome. No obstructive uropathy. Troponinemia is likely secondary to chronic kidney disease. No ACS #CKD stage IIIb:Likely nephrosclerosis, baseline creatinine 1.8-2 mg/dL. Follow creatinine #Persistent atrial fibrillation: Eliquis, metoprolol Cardiology following -Hepatitis picture with intrahepatic cholestasis. Possibly with from CHF Hold Lipitor -Chronic kidney disease stage III nephrosclerosis -Type II lactic acidosis. No evidence of infection #CAD with prior history of stent in November 2020: Beta-jairo, aspirin #Intermittent asthma: DuoNeb. Prednisone taper #Depression: Celexa 20 mg nightly and BuSpar 10 mg twice daily #Essential hypertension: Beta-jairo #Hyperlipidemia: e Lipitor 80 mg and fenofibrate 54 mg p.o. daily -Full code Care was discussed with the patient daughter at the bedside. Hold Lipitor. Follow labs closely. Past Medical History Past Medical History: Atrial Fibrillation, Asthma, Coronary Artery Disease (CAD), Chest Pain / Angina, CVA/TIA, Diabetes Mellitus, Deep Vein Thrombosis (DVT), GERD/Reflux, Hyperlipidemia, Hypertension, Myocardial Infarction ([place]), Osteoarthritis (OA), Renal Disease, Skin Disorder Additional Past Medical History / Comment(s): Hx CVA 11/30, had stent placed. Some trouble remembering things since. Hx left DVT. 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 Current vision problems and headaches. Psorasis. Gout. Last Myocardial Infarction Date:: 09/02 History of Any Multi-Drug Resistant Organisms: None Reported Past Surgical History: Heart Catheterization With Stent, Orthopedic Surgery Additional Past Surgical History / Comment(s): Left knee surgery, right shoulder surgery, bilateral cataract surgery. eye inplants Past Anesthesia/Blood Transfusion Reactions: No Reported Reaction, Motion Sickness Date of Last Stent Placement:: 11/2020 Past Psychological History: Anxiety, Depression Smoking Status: Never smoker Past Alcohol Use History: None Reported Past Drug Use History: None Reported - Past Family History Mother Family Medical History: Dementia Additional Family Medical History / Comment(s): at 58 years old of Alzheimer disease. Brother(s) Family Medical History: CVA/TIA, Dementia Father Family Medical History: Diabetes Mellitus Additional Family Medical History / Comment(s): of old age at 92 years old. Sister(s) Family Medical History: Cancer, Coronary Artery Disease (CAD) Additional Family Medical History / Comment(s): of lung cancer. Medications and Allergies Home Medications Medication Instructions Recorded Confirmed Type Albuterol Sulfate [Albuterol 2 puff INHALATION RT-Q4H PRN 09/02/21 06/18/24 History Sulfate Hfa] Apixaban [Eliquis] 5 mg PO BID 09/02/21 06/18/24 History Atorvastatin [Lipitor] 80 mg PO DAILY 09/02/21 06/18/24 History Citalopram Hydrobromide [CeleXA] 20 mg PO HS 09/02/21 06/18/24 History Fenofibrate,Micronized 67 mg PO DAILY 09/02/21 06/18/24 History [Fenofibrate] Omeprazole 20 mg PO HS 09/02/21 06/18/24 History allopurinoL [Zyloprim] 100 mg PO DAILY 09/02/21 06/18/24 History busPIRone HCL 10 mg PO BID 09/02/21 06/18/24 History metFORMIN HCL ER [Glucophage XR] 500 mg PO HS 09/02/21 06/18/24 History Aspirin [Children's Aspirin] 81 mg PO HS 06/13/22 06/18/24 History Isosorbide Mononitrate ER [Imdur] 30 mg PO DAILY 06/16/23 06/18/24 History Dapagliflozin Propanediol [Farxiga] 5 mg PO DAILY 12/05/23 06/18/24 History Clotrimazole Cream [Lotrimin Cream] 1 applic TOPICAL BID PRN 06/03/24 06/18/24 History Furosemide [Lasix] 40 mg PO BID #60 06/12/24 06/18/24 Rx Ipratropium-Albuterol Nebulize 3 ml INHALATION RT-TID #90 each 06/12/24 06/18/24 Rx [Duoneb 0.5 mg-3 mg/3 ml Soln] Magnesium Oxide [Mag-Ox] 400 mg PO BID #0 06/12/24 06/18/24 Rx Metoprolol Succinate (ER) [Toprol 50 mg PO DAILY #30 tab 06/12/24 06/18/24 Rx XL] Budesonide/Formoterol Fumarate 1 puff INHALATION RT-BID 06/18/24 06/18/24 History [Symbicort 160-4.5 Mcg Inhaler] predniSONE See Taper PO DIRECTED 06/18/24 06/18/24 History Allergies Allergy/AdvReac Type Severity Reaction Status Date / Time No Known Allergies Allergy Verified 06/18/24 16:30 Physical Exam Vitals: Vital Signs Temp Pulse Resp BP Pulse Ox 06/18/24 17:14 62 18 117/76 95 06/18/24 14:32 72 16 114/71 97 06/18/24 14:03 93 L 06/18/24 13:27 97 06/18/24 12:35 97.7 F 81 20 112/79 97 Intake and Output 06/18/24 06/18/24 06/18/24 06:59 14:59 22:59 Other: Weight 101.151 kg Results CBC & Chem 7: 06/18/24 12:58 06/18/24 12:58 Labs: Abnormal Lab Results - Last 24 Hours (Table) 06/18/24 06/18/24 06/18/24 Range/Units 12:42 12:58 12:58 WBC 17.0 H (3.8-10.6) k/uL RDW 15.7 H (11.5-15.5) % Neutrophils # 15.3 H (1.3-7.7) k/uL Lymphocytes # 0.7 L (1.0-4.8) k/uL PT 15.7 H (10.0-12.5) sec INR 1.5 H (<1.2) Sodium (137-145) mmol/L Chloride (98-107) mmol/L BUN (9-20) mg/dL Creatinine (0.66-1.25) mg/dL Glucose (74-99) mg/dL POC Glucose (mg/dL) 451 H (70-110) mg/dL Plasma Lactic Acid Ron (0.7-2.0) mmol/L Magnesium (1.6-2.3) mg/dL Total Bilirubin (0.2-1.3) mg/dL AST (17-59) U/L ALT (4-49) U/L Alkaline Phosphatase (38-126) U/L Troponin I (0.000-0.034) ng/mL Total Protein (6.3-8.2) g/dL Albumin (3.5-5.0) g/dL Urine Glucose (UA) (Negative) Urine Blood (Negative) Urine RBC (0-5) /hpf Urine WBC Clumps (None) /hpf Urine Mucus (None) /hpf 06/18/24 06/18/24 06/18/24 Range/Units 12:58 12:58 12:58 WBC (3.8-10.6) k/uL RDW (11.5-15.5) % Neutrophils # (1.3-7.7) k/uL Lymphocytes # (1.0-4.8) k/uL PT (10.0-12.5) sec INR (<1.2) Sodium 132 L (137-145) mmol/L Chloride 97 L (98-107) mmol/L BUN 102 H* (9-20) mg/dL Creatinine 2.30 H (0.66-1.25) mg/dL Glucose 348 H (74-99) mg/dL POC Glucose (mg/dL) (70-110) mg/dL Plasma Lactic Acid Ron 2.9 H* (0.7-2.0) mmol/L Magnesium 2.6 H (1.6-2.3) mg/dL Total Bilirubin 2.7 H (0.2-1.3) mg/dL AST 149 H (17-59) U/L ALT 187 H (4-49) U/L Alkaline Phosphatase 297 H (38-126) U/L Troponin I 0.470 H* (0.000-0.034) ng/mL Total Protein 5.7 L (6.3-8.2) g/dL Albumin 3.4 L (3.5-5.0) g/dL Urine Glucose (UA) (Negative) Urine Blood (Negative) Urine RBC (0-5) /hpf Urine WBC Clumps (None) /hpf Urine Mucus (None) /hpf 06/18/24 06/18/24 06/18/24 Range/Units 13:19 16:13 16:25 WBC (3.8-10.6) k/uL RDW (11.5-15.5) % Neutrophils # (1.3-7.7) k/uL Lymphocytes # (1.0-4.8) k/uL PT (10.0-12.5) sec INR (<1.2) Sodium (137-145) mmol/L Chloride (98-107) mmol/L BUN (9-20) mg/dL Creatinine (0.66-1.25) mg/dL Glucose (74-99) mg/dL POC Glucose (mg/dL) (70-110) mg/dL Plasma Lactic Acid Ron 2.2 H* (0.7-2.0) mmol/L Magnesium (1.6-2.3) mg/dL Total Bilirubin (0.2-1.3) mg/dL AST (17-59) U/L ALT (4-49) U/L Alkaline Phosphatase (38-126) U/L Troponin I 0.473 H* (0.000-0.034) ng/mL Total Protein (6.3-8.2) g/dL Albumin (3.5-5.0) g/dL Urine Glucose (UA) 4+ H (Negative) Urine Blood Large H (Negative) Urine RBC 115 H (0-5) /hpf Urine WBC Clumps Rare H (None) /hpf Urine Mucus Rare H (None) /hpf
[2024-06-18] MEDS: ASPIRIN 81 MG PO SCH (20:54)
[2024-06-18] MEDS: CITALOPRAM HYDROBROMIDE 20 MG TAB PO SCH (20:54)
[2024-06-18] MEDS: metFORMIN 500 MG TAB PO SCH (20:55)
[2024-06-18] MEDS: PANTOPRAZOLE 40 MG TABLET PO SCH (20:55)
[2024-06-18] MEDS: APIXABAN 2.5 MG TABLET PO SCH (20:55)
[2024-06-18] MEDS: busPIRone HCl 10 MG TAB PO SCH (20:56)
[2024-06-18] MEDS: MAGNESIUM OXIDE 400 MG TAB PO SCH (20:56)
[2024-06-18] MEDS: IPRATROPIUM-ALBUTEROL 3 ML NEB INHALATION SCH (21:11)
[2024-06-18] MEDS: SYMBICORT 160-4.5 MCG INHALER INHALATION SCH (21:11)
[2024-06-18] MEDS: FUROSEMIDE 100 MG in SODIUM CHLORIDE 0.9% 90 ML IV SCH (21:38)
[2024-06-19] MEDS: ALBUTEROL NEBULIZED 2.5 MG/3 ML INHALATION PRN (02:01)
[2024-06-19 04:05] LABS: African American GFR (CKD) 32 (>60 ml/min/1.73 sqM); Anion Gap 6 mmol/L; Calcium 8.9 mg/dL (8.4-10.2); Carbon Dioxide 33 mmol/L (22-30); Chloride 92 mmol/L (98-107); Glucose 325 mg/dL (74-99); Non-African American GFR(CKD) 28 (>60 ml/min/1.73 sqM); Potassium 3.9 mmol/L (3.5-5.1); Sodium 131 mmol/L (137-145)
[2024-06-19 04:14] LABS: Blood Urea Nitrogen 102 mg/dL (9-20)
[2024-06-19] MEDS ORDERED: ASPIRIN 325 MG TAB PO SCH (09:00)
[2024-06-19] MEDS: allopurinoL 100 MG TAB PO SCH (09:14)
[2024-06-19] MEDS: METOPROLOL SUCCINATE (ER) 50 MG TAB.ER.24H PO SCH (09:14)
[2024-06-19] MEDS: FENOFIBRATE 54 MG TAB PO SCH (09:14)
[2024-06-19] MEDS: ISOSORBIDE MONONITRATE ER 30 MG TAB.ER.24H PO SCH (09:14)
[2024-06-19] MEDS: DAPAGLIFLOZIN PROPANEDIOL 5 MG TABLET PO SCH (09:30)
--- NOTE | 2024-06-19 10:03 | P.NPCON ---
History of Present Illness - Reason for Consult chronic renal failure - History of Present Illness Reason for consultation: Chronic kidney disease History of present illness: Patient is a 78-year-old male seen in renal consultation for chronic kidney disease. Patient has chronic kidney disease stage IIIb with baseline creatinine in the range of 2-2.3 secondary to diabetic kidney disease. Patient came to the hospital due to worsening shortness of breath over the last 1 week. Patient states he was taking oral diuretics at home but still noticed worsening swelling. He denies chest pain. Recent ultrasound showed no hydronephrosis. Patient does have history of coronary disease with cardiac stenting. Also has longstanding history of diabetes. Recent echocardiogram showed ejection fraction of 20% and mild to moderate tricuspid regurgitation. He is currently maintained on Lasix drip and is also on Farxiga. Urine output documented as 750 cc overnight. He has an external catheter. No vomiting or diarrhea. No fever. Hemodynamically stable. Vital signs are stable. General: No acute distress. HEENT: Head exam is unremarkable. On nasal cannula. LUNGS: Scattered rhonchi. HEART: Rate and Rhythm are regular. ABDOMEN: Nontender. EXTREMITITES: 2+ edema. Past Medical History Past Medical History: Atrial Fibrillation, Asthma, Coronary Artery Disease (CAD), Chest Pain / Angina, CVA/TIA, Diabetes Mellitus, Deep Vein Thrombosis (DVT), GERD/Reflux, Hyperlipidemia, Hypertension, Myocardial Infarction ([place]), Osteoarthritis (OA), Renal Disease, Skin Disorder Additional Past Medical History / Comment(s): Hx CVA 11/30, had stent placed. Some trouble remembering things since. Hx left DVT. 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 Current vision problems and headaches. Psorasis. Gout. Last Myocardial Infarction Date:: 09/02 History of Any Multi-Drug Resistant Organisms: None Reported Past Surgical History: Heart Catheterization With Stent, Orthopedic Surgery Additional Past Surgical History / Comment(s): Left knee surgery, right shoulder surgery, bilateral cataract surgery. eye inplants Past Anesthesia/Blood Transfusion Reactions: No Reported Reaction, Motion Sickness Date of Last Stent Placement:: 11/2020 Past Psychological History: Anxiety, Depression Smoking Status: Never smoker Past Alcohol Use History: None Reported Past Drug Use History: None Reported - Past Family History Mother Family Medical History: Dementia Additional Family Medical History / Comment(s): at 58 years old of Alzheim er disease. Brother(s) Family Medical History: CVA/TIA, Dementia Father Family Medical History: Diabetes Mellitus Additional Family Medical History / Comment(s): of old age at 92 years old. Sister(s) Family Medical History: Cancer, Coronary Artery Disease (CAD) Additional Family Medical History / Comment(s): of lung cancer. Medications and Allergies Home Medications Medication Instructions Recorded Confirmed Type Albuterol Sulfate [Albuterol 2 puff INHALATION RT-Q4H PRN 09/02/21 06/18/24 His tory Sulfate Hfa] Apixaban [Eliquis] 5 mg PO BID 09/02/21 06/18/24 History Atorvastatin [Lipitor] 80 mg PO DAILY 09/02/21 06/18/24 History Citalopram Hydrobromide [CeleXA] 20 mg PO HS 09/02/21 06/18/24 History Fenofibrate,Micronized 67 mg PO DAILY 09/02/21 06/18/24 History [Fenofibrate] Omeprazole 20 mg PO HS 09/02/21 06/18/24 History allopurinoL [Zyloprim] 100 mg PO DAILY 09/02/21 06/18/24 History busPIRone HCL 10 mg PO BID 09/02/21 06/18/24 History metFORMIN HCL ER [Glucophage XR] 500 mg PO HS 09/02/21 06/18/24 History Aspirin [Children's Aspirin] 81 mg PO HS 06/13/22 06/18/24 History Isosorbide Mononitrate ER [Imdur] 30 mg PO DAILY 06/16/23 06/18/24 History Dapagliflozin Propanediol [Farxiga] 5 mg PO DAILY 12/05/23 06/18/24 History Clotrimazole Cream [Lotrimin Cream] 1 applic TOPICAL BID PRN 06/03/24 06/18/24 History Furosemide [Lasix] 40 mg PO BID #60 06/12/24 06/18/24 Rx Ipratropium-Albuterol Nebulize 3 ml INHALATION RT-TID #90 each 06/12/24 06/18/24 Rx [Duoneb 0.5 mg-3 mg/3 ml Soln] Magnesium Oxide [Mag-Ox] 400 mg PO BID #0 06/12/24 06/18/24 Rx Metoprolol Succinate (ER) [Toprol 50 mg PO DAILY #30 tab 06/12/24 06/18/24 Rx XL] Budesonide/Formoterol Fumarate 1 puff INHALATION RT-BID 06/18/24 06/18/24 History [Symbicort 160-4.5 Mcg Inhaler] predniSONE See Taper PO DIRECTED 06/18/24 06/18/24 History Allergies Allergy/AdvReac Type Severity Reaction Status Date / Time No Known Allergies Allergy Verified 06/18/24 16:30 Physical Exam Vitals: Vital Signs Temp Pulse Resp BP Pulse Ox 06/19/24 09:05 87 19 117/67 97 06/19/24 08:55 72 06/19/24 08:30 70 06/19/24 08:09 97.7 F 70 18 134/74 99 06/19/24 06:00 66 12 112/51 06/19/24 02:07 77 20 06/19/24 02:01 70 20 06/19/24 02:00 68 13 97/55 99 06/19/24 00:00 67 10 L 110/84 100 06/18/24 22:00 63 11 L 125/70 97 06/18/24 21:18 70 18 06/18/24 21:12 73 18 06/18/24 21:00 66 12 105/70 98 06/18/24 19:10 70 12 115/92 96 06/18/24 17:14 62 18 117/76 95 06/18/24 14:32 72 16 114/71 97 06/18/24 14:03 93 L 06/18/24 13:27 97 06/18/24 12:35 97.7 F 81 20 112/79 97 Intake and Output 06/18/24 06/19/24 06/19/24 22:59 06:59 14:59 Intake Total 236 320.5 Output Total 750 Balance 236 -429.5 Intake: Intake, IV Titration 84.5 Amount Furosemide 100 mg In 84.5 Sodium Chloride 0.9% 90 ml @ 10 MG/HR 10 mls/hr IV .Q10H [facility] Rx#: [id number] Oral 236 236 Output: Urine 750 Results - Lab Results Most recent lab results Calcium 8.9 mg/dL (8.4-10.2) 06/19/24 03:39 Magnesium 2.6 mg/dL (1.6-2.3) H 06/18/24 12:58 06/18/24 12:58 06/19/24 03:39 Assessment and Plan Plan: Assessment: 1. Chronic kidney disease stage IIIb secondary to diabetic kidney disease and cardiorenal syndrome. Baseline creatinine 2-2.3. GFR near baseline. Recent UA showed no proteinuria. Ultrasound from last month showed no hydronephrosis. 2. Acute on chronic systolic CHF ejection fraction of 20% with mild to moderate tricuspid regurgitation. 3. Volume overload. 4. Coronary artery disease. 5. Diabetes mellitus. 6. Hypervolemic hyponatremia. Also component of hypertonicity from hyperglycemia. 7. Hypertension with chronic kidney disease. Stable. Plan: Maintain Lasix drip. Maintain Farxiga. Metolazone 5 mg once daily. Strict I's and O's. Low-salt diet and 1500 cc fluid restriction. Blood glucose control. Continue to monitor renal function and urine output. Thank you for the consultation. I will continue to follow the patient with you during his hospital stay.
[2024-06-19 10:26] LABS: Chol/HDL Ratio 2.18 Ratio; LDL Cholesterol,Calculated 15.5 mg/dL (0.0-131.0)
--- NOTE | 2024-06-19 10:58 | P.CRDCN ---
History of Present Illness Consult date: 06/19/24 Reason for Consult (text): NSTEMI History of present illness: This is a 78-year-old male patient of Dr. Juan Wellington with past medical history of paroxysmal atrial fibrillation, coronary artery disease on medical therapy, hypertension, hyperlipidemia, diabetes mellitus type 2, chronic kidney disease stage IIIb, family history of premature coronary artery disease. We have been asked to evaluate the patient for NSTEMI. Patient had a recent hospitalization 06/03 - 06/12 at which time he was seen by cardiology for persistent atrial fibrillation flat troponin secondary to hypoperfusion. Patient presented to the emergency center due to shortness of breath along with leg swelling. Symptoms have been going on for the past week. He has been taking his medications as directed at home. Blood pressure 107/74, heart rate 98, pulse ox 96% on 2 L nasal cannula. Patient has been started on Lasix drip and he is followed by nephrology. EKG: Atrial fibrillation with right bundle branch block Chest x-ray: Stable bilateral lower lobe infiltrate and small pleural effusion. Laboratory studies: WBC 17, hemoglobin 15.1. INR 1.5. Sodium 131, CO2 33, BUN 102, creatinine 2.21. Lactic acid 2.7. Troponin 0.47, 0.473, 0.468. proBNP 16,700. Home cardiac medications: Eliquis 5 mg twice daily, aspirin 81 mg daily, atorvastatin 80 mg daily, Farxiga 5 mg daily, fenofibrate 67 mg daily, Lasix 40 mg twice daily, Imdur 30 mg daily, lisinopril 10 mg at bedtime, magnesium oxide 800 mg twice daily, metoprolol succinate 50 mg daily. Lexiscan Cardiolite stress test performed 10/04/2023 in the office revealed negative stress test by EKG criteria. Abnormal nuclear scan showing evidence of inferior lateral myocardial infarction with LV systolic dysfunction and EF 40% without evidence of ischemia. Cardiac catheterization performed 09/02/2021 revealed moderate stenosis involving the right coronary artery. Echocardiogram performed 06/04/2024 revealed EF 25 %. Four-chamber enlargement. Mild mitral regurgitation. Mild to moderate tricuspid regurgitation, aortic valve sclerosis with calcification Review Of Systems: At the time of my exam: CONSTITUTIONAL: Denies fever or chills. HEENT: Denies blurred vision, vision changes, or eye pain. Denies hemoptysis CARDIOVASCULAR: Denies chest pain. Denies orthopnea. Denies PND. Denies palpitations RESPIRATORY: Denies shortness of breath. GASTROINTESTINAL: Denies abdominal pain. Denies nausea or vomiting. HEMATOLOGIC: Denies bleeding disorders. GENITOURINARY: Denies any blood in urine. SKIN: Denies puritis. Denies rash. Physical examination: Gen: This is a 78-year-old male in no acute distress VS: reviewed HEENT: Head is atraumatic, normocephalic. Pupils equal, round. Sclerae is anicteric. NECK: Supple. No JVD. LUNGS: Diminished breath sounds. No intercostal retractions. HEART: Irregular rate and rhythm. No murmur. ABDOMEN: Soft No tenderness. EXTREMITIES: 2+ lower extremity edema. No calf tenderness. NEUROLOGICAL: Patient is awake, alert and oriented x3. Assessment: Chronically elevated troponin due to poor renal clearance, less likely ACS Acute on chronic systolic heart failure Cardiomyopathy with EF of 25% Permanent atrial fibrillation Coronary artery disease on medical therapy Hypertension Hyperlipidemia Diabetes mellitus type 2 Family history of premature coronary artery disease Plan: Resume patient's home cardiac medications Continue Lasix drip No medication changes made No need to repeat echocardiogram as it was completed in May Further recommendations to follow based upon clinical course Thank you kindly for this consultation. Nurse practitioner note has been reviewed, I agree with documented findings and plan of care. Patient was seen and examined. Past Medical History Past Medical History: Atrial Fibrillation, Asthma, Coronary Artery Disease (CAD), Chest Pain / Angina, CVA/TIA, Diabetes Mellitus, Deep Vein Thrombosis (DVT), GERD/Reflux, Hyperlipidemia, Hypertension, Myocardial Infarction ([place]), Osteoarthritis (OA), Renal Disease, Skin Disorder Additional Past Medical History / Comment(s): Hx CVA 11/30, had stent placed. Some trouble remembering things since. Hx left DVT. 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 Current vision problems and headaches. Psorasis. Gout. Last Myocardial Infarction Date:: 09/02 History of Any Multi-Drug Resistant Organisms: None Reported Past Surgical History: Heart Catheterization With Stent, Orthopedic Surgery Additional Past Surgical History / Comment(s): Left knee surgery, right shoulder surgery, bilateral cataract surgery. eye inplants Past Anesthesia/Blood Transfusion Reactions: No Reported Reaction, Motion Sickness Date of Last Stent Placement:: 11/2020 Past Psychological History: Anxiety, Depression Smoking Status: Never smoker Past Alcohol Use History: None Reported Past Drug Use History: None Reported - Past Family History Mother Family Medical History: Dementia Additional Family Medical History / Comment(s): at 58 years old of Alzheimer disease. Brother(s) Family Medical History: CVA/TIA, Dementia Father Family Medical History: Diabetes Mellitus Additional Family Medical History / Comment(s): of old age at 92 years old. Sister(s) Family Medical History: Cancer, Coronary Artery Disease (CAD) Additional Family Medical History / Comment(s): of lung cancer. Medications and Allergies Home Medications Medication Instructions Recorded Confirmed Type Albuterol Sulfate [Albuterol 2 puff INHALATION RT-Q4H PRN 09/02/21 06/18/24 History Sulfate Hfa] Apixaban [Eliquis] 5 mg PO BID 09/02/21 06/18/24 History Atorvastatin [Lipitor] 80 mg PO DAILY 09/02/21 06/18/24 History Citalopram Hydrobromide [CeleXA] 20 mg PO HS 09/02/21 06/18/24 History Fenofibrate,Micronized 67 mg PO DAILY 09/02/21 06/18/24 History [Fenofibrate] Omeprazole 20 mg PO HS 09/02/21 06/18/24 History allopurinoL [Zyloprim] 100 mg PO DAILY 09/02/21 06/18/24 History busPIRone HCL 10 mg PO BID 09/02/21 06/18/24 History metFORMIN HCL ER [Glucophage XR] 500 mg PO HS 09/02/21 06/18/24 History Aspirin [Children's Aspirin] 81 mg PO HS 06/13/22 06/18/24 History Isosorbide Mononitrate ER [Imdur] 30 mg PO DAILY 06/16/23 06/18/24 History Dapagliflozin Propanediol [Farxiga] 5 mg PO DAILY 12/05/23 06/18/24 History Clotrimazole Cream [Lotrimin Cream] 1 applic TOPICAL BID PRN 06/03/24 06/18/24 History Furosemide [Lasix] 40 mg PO BID #60 06/12/24 06/18/24 Rx Ipratropium-Albuterol Nebulize 3 ml INHALATION RT-TID #90 each 06/12/24 06/18/24 Rx [Duoneb 0.5 mg-3 mg/3 ml Soln] Magnesium Oxide [Mag-Ox] 400 mg PO BID #0 06/12/24 06/18/24 Rx Metoprolol Succinate (ER) [Toprol 50 mg PO DAILY #30 tab 06/12/24 06/18/24 Rx XL] Budesonide/Formoterol Fumarate 1 puff INHALATION RT-BID 06/18/24 06/18/24 History [Symbicort 160-4.5 Mcg Inhaler] predniSONE See Taper PO DIRECTED 06/18/24 06/18/24 History Allergies Allergy/AdvReac Type Severity Reaction Status Date / Time No Known Allergies Allergy Verified 06/18/24 16:30 Physical Exam Vitals: Vital Signs Temp Pulse Resp BP Pulse Ox 06/19/24 06:00 66 12 112/51 06/19/24 02:07 77 20 06/19/24 02:01 70 20 06/19/24 02:00 68 13 97/55 99 06/19/24 00:00 67 10 L 110/84 100 06/18/24 22:00 63 11 L 125/70 97 06/18/24 21:18 70 18 06/18/24 21:12 73 18 06/18/24 21:00 66 12 105/70 98 06/18/24 19:10 70 12 115/92 96 06/18/24 17:14 62 18 117/76 95 06/18/24 14:32 72 16 114/71 97 06/18/24 14:03 93 L 06/18/24 13:27 97 06/18/24 12:35 97.7 F 81 20 112/79 97 Intake and Output 06/18/24 06/19/24 06/19/24 22:59 06:59 14:59 Intake Total 236 320.5 Output Total 750 Balance 236 -429.5 Intake: Intake, IV Titration 84.5 Amount Furosemide 100 mg In 84.5 Sodium Chloride 0.9% 90 ml @ 10 MG/HR 10 mls/hr IV .Q10H [facility] Rx#: [id number] Oral 236 236 Output: Urine 750 Results 06/18/24 12:58 06/19/24 03:39 Cardiac Enzymes 06/18/24 06/18/24 06/18/24 Range/Units 12:58 12:58 16:13 AST 149 H (17-59) U/L Troponin I 0.470 H* 0.473 H* (0.000-0.034) ng/mL 06/18/24 Range/Units 19:23 AST (17-59) U/L Troponin I 0.468 H* (0.000-0.034) ng/mL Coagulation 06/18/24 Range/Units 12:58 PT 15.7 H (10.0-12.5) sec APTT 24.5 (22.0-30.0) sec CBC 06/18/24 Range/Units 12:58 WBC 17.0 H (3.8-10.6) k/uL RBC 5.42 (4.30-5.90) m/uL Hgb 15.1 (13.0-17.5) gm/dL Hct 48.5 (39.0-53.0) % Plt Count 197 (150-450) k/uL Comprehensive Metabolic Panel 06/18/24 06/19/24 Range/Units 12:58 03:39 Sodium 132 L 131 L (137-145) mmol/L Potassium 4.3 3.9 (3.5-5.1) mmol/L Chloride 97 L 92 L (98-107) mmol/L Carbon Dioxide 30 33 H (22-30) mmol/L BUN 102 H* 102 H* (9-20) mg/dL Creatinine 2.30 H 2.21 H (0.66-1.25) mg/dL Glucose 348 H 325 H (74-99) mg/dL Calcium 8.5 8.9 (8.4-10.2) mg/dL AST 149 H (17-59) U/L ALT 187 H (4-49) U/L Alkaline Phosphatase 297 H (38-126) U/L Total Protein 5.7 L (6.3-8.2) g/dL Albumin 3.4 L (3.5-5.0) g/dL Current Medications Generic Name Dose Route Start Last Admin Trade Name Freq PRN Reason Stop Dose Admin Albuterol Sulfate 2.5 mg 06/18/24 19:35 06/19/24 02:01 Albuterol Nebulized 2.5 Mg/3 Ml INHALATION 2.5 mg RT-Q4H PRN Administration Shortness Of Breath Albuterol/Ipratropium 3 ml 06/18/24 20:00 06/18/24 21:11 Ipratropium-Albuterol 3 Ml Neb INHALATION 3 ml RT-TID [facility] Administration Allopurinol 100 mg 06/19/24 09:00 Allopurinol 100 Mg Tab PO DAILY [facility] Apixaban 2.5 mg 06/18/24 21:00 06/18/24 20:55 Apixaban 2.5 Mg Tablet PO 2.5 mg BID [facility] Administration Protocol Aspirin 81 mg 06/18/24 21:00 06/18/24 20:54 Aspirin 81 Mg PO 81 mg HS [facility] Administration Budesonide/Formoterol Fumarate 1 puff 06/18/24 20:00 06/18/24 21:11 Symbicort 160-4.5 Mcg Inhaler INHALATION 1 puff RT-BID [facility] Administration Buspirone HCl 10 mg 06/18/24 21:00 06/18/24 20:56 Buspirone Hcl 10 Mg Tab PO 10 mg BID [facility] Administration Citalopram Hydrobromide 20 mg 06/18/24 21:00 06/18/24 20:54 Citalopram Hydrobromide 20 Mg Tab PO 20 mg HS [facility] Administration Clotrimazole 1 applic 06/18/24 19:35 Clotrimazole 1% Cream 30 Gm Tube TOPICAL BID PRN Skin Irritation Protocol Dapagliflozin 5 mg 06/19/24 09:00 Dapagliflozin Propanediol 5 Mg Tablet PO DAILY [facility] Fenofibrate 54 mg 06/19/24 09:00 Fenofibrate 54 Mg Tab PO DAILY [facility] Furosemide 100 mg/ Sodium 100 mls @ 10 mls/hr 06/18/24 20:00 06/19/24 06:05 Chloride IV 10 mg/hr .Q10H [facility] 10 mls/hr Administration 10 MG/HR Isosorbide Mononitrate 30 mg 06/19/24 09:00 Isosorbide Mononitrate Er 30 Mg Tab.Er.24h PO DAILY [facility] Magnesium Oxide 400 mg 06/18/24 21:00 06/18/24 20:56 Magnesium Oxide 400 Mg Tab PO 400 mg BID [facility] Administration Metformin HCl 500 mg 06/18/24 21:00 06/18/24 20:55 Metformin 500 Mg Tab PO 500 mg HS [facility] Administration Metoprolol Succinate 50 mg 06/19/24 09:00 Metoprolol Succinate (Er) 50 Mg Tab.Er.24h PO DAILY [facility] Nitroglycerin 0.4 mg 06/18/24 15:50 Nitroglycerin Sl Tabs 0.4 Mg Tab SUBLINGUAL Q5M PRN Chest Pain Pantoprazole Sodium 40 mg 06/18/24 21:00 06/18/24 20:55 Pantoprazole 40 Mg Tablet PO 40 mg HS [facility] Administration Intake and Output 06/18/24 06/19/24 06/19/24 22:59 06:59 14:59 Intake Total 236 320.5 Output Total 750 Balance 236 -429.5 Intake: Intake, IV Titration 84.5 Amount Furosemide 100 mg In 84.5 Sodium Chloride 0.9% 90 ml @ 10 MG/HR 10 mls/hr IV .Q10H [facility] Rx#: [id number] Oral 236 236 Output: Urine 750 06/18/24 12:58 06/19/24 03:39
[2024-06-19] MEDS: metOLazone 5 MG TAB PO SCH (12:48)
[2024-06-19] MEDS ORDERED: DEXTROSE 50% SYRINGE 50 ML IVP PRN (16:56)
[2024-06-19 16:57] LABS: Glucose,Whole Blood 381 mg/dL (70-110)
[2024-06-19] MEDS: INSULIN ASPART (NovoLOG) 100 UNIT/ML VIAL SQ SCH (17:26)
[2024-06-19] MEDS: FLUCONAZOLE 100 MG TAB PO SCH (17:36)
--- NOTE | 2024-06-19 18:24 | P.PN ---
Progress Note - Text Progress Note Date: 06/19/24 Chief Complaint: Increased swelling, decreased activity 78-year-old male, follows with PCP Dr. Baker with a past medical history of atrial fibrillation on anticoagulation with Eliquis, coronary disease stent replacement, hypertension, hyperlipidemia, diabetes type 2 non -insulin-dependent, CKD and prior history of CVAstatus post stent trouble remembering things and prior history of left lower extremity DVT, anxiety/depression. Chronic back pain does use a brace Patient presents with increasing swelling of the legs. Finding it difficult to walk. Decreased appetite. Recently diagnosed with UTI was given antibiotic. Does use a walker. Just weak and tired. Also short of breath. Some orthopnea. June 19: Patient seen this afternoon overflowing the ER. Remains on IV Lasix drip 10 mg an hour. Making good urine output. Some improvement in breathing. Eating some. Active Medications Albuterol Sulfate (Albuterol Nebulized 2.5 Mg/3 Ml) 2.5 mg INHALATION RT-Q4H PRN PRN Reason: Shortness Of Breath Last Admin: 06/19/24 02:01 Dose: 2.5 mg Albuterol/Ipratropium (Ipratropium-Albuterol 3 Ml Neb) 3 ml INHALATION RT-TID [facility] Last Admin: 06/19/24 13:11 Dose: 3 ml Allopurinol (Allopurinol 100 Mg Tab) 100 mg PO DAILY [facility] Last Admin: 06/19/24 09:14 Dose: 100 mg Apixaban (Apixaban 2.5 Mg Tablet) 2.5 mg PO BID [facility]; Protocol Last Admin: 06/19/24 09:13 Dose: 2.5 mg Aspirin (Aspirin 81 Mg) 81 mg PO [facility] Last Admin: 06/18/24 20:54 Dose: 81 mg Budesonide/Formoterol Fumarate (Symbicort 160-4.5 Mcg Inhaler) 1 puff INHALATION RT-BID [facility] Last Admin: 06/19/24 08:29 Dose: 1 puff Buspirone HCl (Buspirone Hcl 10 Mg Tab) 10 mg PO BID [facility] Last Admin: 06/19/24 09:14 Dose: 10 mg Citalopram Hydrobromide (Citalopram Hydrobromide 20 Mg Tab) 20 mg PO [facility] Last Admin: 06/18/24 20:54 Dose: 20 mg Clotrimazole (Clotrimazole 1% Cream 30 Gm Tube) 1 applic TOPICAL BID PRN; Protocol PRN Reason: Skin Irritation Dapagliflozin (Dapagliflozin Propanediol 5 Mg Tablet) 5 mg PO DAILY [facility] Last Admin: 06/19/24 09:30 Dose: 5 mg Dextrose/Water (Dextrose 50% Syringe 50 Ml) 25 ml IVP PER PROTOCOL PRN; Protocol PRN Reason: Hypoglycemia Dextrose/Water (Dextrose 50% Syringe 50 Ml) 50 ml IVP PER PROTOCOL PRN; Protocol PRN Reason: Hypoglycemia Fenofibrate (Fenofibrate 54 Mg Tab) 54 mg PO DAILY [facility] Last Admin: 06/19/24 09:14 Dose: 54 mg Fluconazole (Fluconazole 100 Mg Tab) 100 mg PO DAILY [facility]; Protocol Last Admin: 06/19/24 17:36 Dose: 100 mg Furosemide 100 mg/ Sodium (Chloride) 100 mls @ 10 mls/hr IV .Q10H [facility] Last Admin: 06/19/24 15:33 Dose: 10 mg/hr, 10 mls/hr Insulin Aspart (Insulin Aspart (Novolog) 100 Unit/Ml Vial) 0 unit SQ ACHS [facility]; Protocol Last Admin: 06/19/24 17:26 Dose: 5 unit Isosorbide Mononitrate (Isosorbide Mononitrate Er 30 Mg Tab.Er.24h) 30 mg PO DAILY [facility] Last Admin: 06/19/24 09:14 Dose: 30 mg Magnesium Oxide (Magnesium Oxide 400 Mg Tab) 400 mg PO BID [facility] Last Admin: 06/19/24 09:14 Dose: 400 mg Metformin HCl (Metformin 500 Mg Tab) 500 mg PO HS [facility] Last Admin: 06/18/24 20:55 Dose: 500 mg Metolazone (Metolazone 5 Mg Tab) 5 mg PO DAILY [facility] Last Admin: 06/19/24 12:48 Dose: 5 mg Metoprolol Succinate (Metoprolol Succinate (Er) 50 Mg Tab.Er.24h) 50 mg PO DAILY [facility] Last Admin: 06/19/24 09:14 Dose: 50 mg Nitroglycerin (Nitroglycerin Sl Tabs 0.4 Mg Tab) 0.4 mg SUBLINGUAL Q5M PRN PRN Reason: Chest Pain Pantoprazole Sodium (Pantoprazole 40 Mg Tablet) 40 mg PO [facility] Last Admin: 06/18/24 20:55 Dose: 40 mg 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 . Denies any history of smoking or alcohol. Physical examination: VITAL SIGNS: 97.7, 70, 18, 134 x 74, 99% on 2 L GENERAL: BMI 32, reclining bed awake tired EYES: Pupils equal. Conjunctiva normal. HEENT: External appearance of nose and ears normal, oral cavity grossly normal. NECK: JVD not raised; masses not palpable. HEART: First and second heart sounds are normal; significant edema LUNGS: Respiratory rate increased, decreased breath sounds, ABDOMEN: Soft, nontender, liver spleen not palpable, no masses palpable. PSYCH: Alert and oriented x3; mood and affect with anxious MUSCULOSKELETAL:No Clubbing/cyanosis;muscles-grossly intact Investigation: June 18: White count 17 hemoglobin 15.1 platelets 197 sodium 132 potassium 4.3 BUN 102 creatinine 2.3 AST 149 ALT 187 Troponin I 0.4, 0.4 proBNP 75209 EKG tracing personally reviewed by me-atrial fibrillation. Right bundle dannielle block pattern. ST-T wave changes. Chest x-ray film personally reviewed by me-cardiomegaly. Pulm edema. Pleural effusion Recent labs June 12: Potassium 4.2 BUN 85 creatinine 2.36 Renal ultrasound: No evidence of obstructive uropathy or renal calculi 2D echocardiogram: EF 20%: Mild to moderate TR. Assessment and plan: -Acute on chronic congestive heart failure from systolic dysfunction EF 20%. Ischemic cardiomyopathy: Slow to respond Lasix drip 10 mg an hour. Strict I's and O's. Fluid restriction. Follow labs closely Cardiology following # Acute kidney injury ATN secondary to hypotension-cardiorenal syndrome. No obstructive uropathy. Nephrology following -Troponinemia is likely secondary to chronic kidney disease. No ACS #CKD stage IIIb:Likely nephrosclerosis, baseline creatinine 1.8-2 mg/dL. Follow creatinine #Persistent atrial fibrillation: Eliquis, Toprol-XL 50 mg a day Cardiology following -Hepatitis picture with intrahepatic cholestasis. Possibly with from CHF Hold Lipitor -Type II lactic acidosis. No evidence of infection -Troponinemia: From underlying CKD. No ACS #CAD with prior stent in November 2020: Beta-jairo, aspirin #Intermittent asthma: DuoNeb. #Depression: Celexa 20 mg nightly and BuSpar 10 mg twice daily #Essential hypertension: Beta-jairo #Hyperlipidemia: Lipitor 80 mg and fenofibrate 54 mg p.o. daily-held currently because of elevated liver enzymes -Full code Discussed with patient. Follow-up with nephrology cardiology Past Medical History Past Medical History: Atrial Fibrillation, Asthma, Coronary Artery Disease (CAD), Chest Pain / Angina, CVA/TIA, Diabetes Mellitus, Deep Vein Thrombosis (DVT), GERD/Reflux, Hyperlipidemia, Hypertension, Myocardial Infarction ([place]), Osteoarthritis (OA), Renal Disease, Skin Disorder Additional Past Medical History / Comment(s): Hx CVA 11/30, had stent placed. Some trouble remembering things since. Hx left DVT. 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 Current vision problems and headaches. Psorasis. Gout. Last Myocardial Infarction Date:: 09/02 History of Any Multi-Drug Resistant Organisms: None Reported Past Surgical History: Heart Catheterization With Stent, Orthopedic Surgery Additional Past Surgical History / Comment(s): Left knee surgery, right shoulder surgery, bilateral cataract surgery. eye inplants Past Anesthesia/Blood Transfusion Reactions: No Reported Reaction, Motion Sickness Date of Last Stent Placement:: 11/2020 Past Psychological History: Anxiety, Depression Smoking Status: Never smoker Past Alcohol Use History: None Reported Past Drug Use History: None Reported
[2024-06-19 20:21] LABS: Glucose,Whole Blood 477 mg/dL (70-110)
[2024-06-20 05:33] LABS: Glucose,Whole Blood 177 mg/dL (70-110)
[2024-06-20 08:01] LABS: African American GFR (CKD) 32 (>60 ml/min/1.73 sqM); Blood Urea Nitrogen 100 mg/dL (9-20); Calcium 9.4 mg/dL (8.4-10.2); Chloride 84 mmol/L (98-107); Glucose 204 mg/dL (74-99); Magnesium 2.4 mg/dL (1.6-2.3); Non-African American GFR(CKD) 28 (>60 ml/min/1.73 sqM); Potassium 3.3 mmol/L (3.5-5.1); Sodium 135 mmol/L (137-145)
[2024-06-20 08:07] LABS: Anion Gap 12 mmol/L
[2024-06-20 08:09] LABS: Carbon Dioxide 39 mmol/L (22-30)
--- NOTE | 2024-06-20 08:58 | P.PN ---
Subjective Patient is seen in follow-up for chronic kidney disease. Renal function stable. Nonoliguric. Edema improved. Currently on room air. Vital signs are stable. General: No acute distress. HEENT: Head exam is unremarkable. LUNGS: Scattered rhonchi. HEART: Rate and Rhythm are regular. ABDOMEN: Nontender. EXTREMITITES: 2+ edema. Objective - Vital Signs Vital signs: Vital Signs Temp 97.1 F L 06/20/24 08:11 Pulse 84 06/20/24 08:11 Resp 18 06/20/24 08:11 BP 111/61 06/20/24 08:11 Pulse Ox 95 06/20/24 08:11 FiO2 Intake & Output 06/19/24 06/20/24 06/20/24 18:59 06:59 18:59 Intake Total 404.667 148.167 600 Output Total 3300 Balance 404.667 -3151.833 600 Weight 95.254 kg Intake: IV 10 Invasive Line 1 10 Intake, IV Titration 94.667 148.167 Amount Furosemide 100 mg In 94.667 148.167 Sodium Chloride 0.9% 90 ml @ 10 MG/HR 10 mls/hr IV .Q10H [facility] Rx#: [id number] Oral 300 600 Output: Urine 3300 Other: Voiding Method External Catheter External Catheter External Catheter - Labs CBC & Chem 7: 06/18/24 12:58 06/20/24 07:17 Labs: Abnormal Lab Results - Last 24 Hours (Table) 06/19/24 06/19/24 06/19/24 Range/Units 03:39 09:51 13:11 Sodium (137-145) mmol/L Potassium (3.5-5.1) mmol/L Chloride (98-107) mmol/L Carbon Dioxide (22-30) mmol/L BUN (9-20) mg/dL Creatinine (0.66-1.25) mg/dL Glucose (74-99) mg/dL POC Glucose (mg/dL) (70-110) mg/dL Plasma Lactic Acid Ron 3.8 H* 3.3 H* (0.7-2.0) mmol/L Magnesium (1.6-2.3) mg/dL Triglycerides 174.00 H (0.00-149.00) mg/dL 06/19/24 06/19/24 06/19/24 Range/Units 15:56 16:56 20:00 Sodium (137-145) mmol/L Potassium (3.5-5.1) mmol/L Chloride (98-107) mmol/L Carbon Dioxide (22-30) mmol/L BUN (9-20) mg/dL Creatinine (0.66-1.25) mg/dL Glucose (74-99) mg/dL POC Glucose (mg/dL) 381 H 477 H (70-110) mg/dL Plasma Lactic Acid Ron 3.0 H* (0.7-2.0) mmol/L Magnesium (1.6-2.3) mg/dL Triglycerides (0.00-149.00) mg/dL 06/20/24 06/20/24 Range/Units 05:22 07:17 Sodium 135 L (137-145) mmol/L Potassium 3.3 L (3.5-5.1) mmol/L Chloride 84 L (98-107) mmol/L Carbon Dioxide 39 H (22-30) mmol/L BUN 100 H (9-20) mg/dL Creatinine 2.21 H (0.66-1.25) mg/dL Glucose 204 H (74-99) mg/dL POC Glucose (mg/dL) 177 H (70-110) mg/dL Plasma Lactic Acid Ron (0.7-2.0) mmol/L Magnesium 2.4 H (1.6-2.3) mg/dL Triglycerides (0.00-149.00) mg/dL Assessment and Plan Plan: Assessment: 1. Chronic kidney disease stage IIIb secondary to diabetic kidney disease and cardiorenal syndrome. Baseline creatinine 2-2.3. GFR near baseline. Recent UA showed no proteinuria. Ultrasound from last month showed no hydronephrosis. 2. Acute on chronic systolic CHF ejection fraction of 20% with mild to moderate tricuspid regurgitation. 3. Volume overload. Improving with diuresis. 4. Coronary artery disease. 5. Diabetes mellitus. 6. Hypervolemic hyponatremia. Also component of hypertonicity from hyperglycemia. Improved. 7. Hypertension with chronic kidney disease. Stable. 8. Hypokalemia from diuresis. Magnesium normal. Plan: Maintain Lasix drip. Maintain Farxiga. Metolazone 5 mg once daily. Strict I's and O's. Low-salt diet and 1500 cc fluid restriction. Blood glucose control. Continue to monitor renal function and urine output. Replace potassium.
[2024-06-20] MEDS: POTASSIUM CHLORIDE ER 20 MEQ TAB.ER PO ONE ×2 (09:50→18:12)
[2024-06-20 11:29] LABS: Glucose,Whole Blood 316 mg/dL (70-110)
--- NOTE | 2024-06-20 11:53 | P.PN ---
Progress Note - Text Progress Note Date: 06/20/24 Chief Complaint: Increased swelling, decreased activity 78-year-old male, follows with PCP Dr. Baker with a past medical history of atrial fibrillation on anticoagulation with Eliquis, coronary disease stent replacement, hypertension, hyperlipidemia, diabetes type 2 non -insulin-dependent, CKD and prior history of CVAstatus post stent trouble remembering things and prior history of left lower extremity DVT, anxiety/depression. Chronic back pain does use a brace Patient presents with increasing swelling of the legs. Finding it difficult to walk. Decreased appetite. Recently diagnosed with UTI was given antibiotic. Does use a walker. Just weak and tired. Also short of breath. Some orthopnea. June 19: Patient seen this afternoon overflowing the ER. Remains on IV Lasix drip 10 mg an hour. Making good urine output. Some improvement in breathing. Eating some. June 20: Patient remains on IV Lasix drip. Urine output. Swelling and breathing better. Did tolerate some diet. Active Medications Albuterol Sulfate (Albuterol Nebulized 2.5 Mg/3 Ml) 2.5 mg INHALATION RT-Q4H PRN PRN Reason: Shortness Of Breath Last Admin: 06/19/24 02:01 Dose: 2.5 mg Albuterol/Ipratropium (Ipratropium-Albuterol 3 Ml Neb) 3 ml INHALATION RT-TID [facility] Last Admin: 06/20/24 07:36 Dose: 3 ml Allopurinol (Allopurinol 100 Mg Tab) 100 mg PO DAILY [facility] Last Admin: 06/20/24 08:06 Dose: 100 mg Apixaban (Apixaban 2.5 Mg Tablet) 2.5 mg PO BID [facility]; Protocol Last Admin: 06/20/24 08:06 Dose: 2.5 mg Aspirin (Aspirin 81 Mg) 81 mg PO HS [facility] Last Admin: 06/19/24 20:31 Dose: 81 mg Budesonide/Formoterol Fumarate (Symbicort 160-4.5 Mcg Inhaler) 1 puff INHALATION RT-BID [facility] Last Admin: 06/20/24 07:36 Dose: 1 puff Buspirone HCl (Buspirone Hcl 10 Mg Tab) 10 mg PO BID [facility] Last Admin: 06/20/24 08:06 Dose: 10 mg Citalopram Hydrobromide (Citalopram Hydrobromide 20 Mg Tab) 20 mg PO HS [facility] Last Admin: 06/19/24 20:31 Dose: 20 mg Clotrimazole (Clotrimazole 1% Cream 30 Gm Tube) 1 applic TOPICAL BID PRN; Protocol PRN Reason: Skin Irritation Dapagliflozin (Dapagliflozin Propanediol 5 Mg Tablet) 5 mg PO DAILY [facility] Last Admin: 06/20/24 08:06 Dose: 5 mg Dextrose/Water (Dextrose 50% Syringe 50 Ml) 25 ml IVP PER PROTOCOL PRN; Protocol PRN Reason: Hypoglycemia Dextrose/Water (Dextrose 50% Syringe 50 Ml) 50 ml IVP PER PROTOCOL PRN; Protocol PRN Reason: Hypoglycemia Fenofibrate (Fenofibrate 54 Mg Tab) 54 mg PO DAILY [facility] Last Admin: 06/20/24 08:06 Dose: 54 mg Fluconazole (Fluconazole 100 Mg Tab) 100 mg PO DAILY [facility]; Protocol Last Admin: 06/20/24 08:05 Dose: 100 mg Furosemide 100 mg/ Sodium (Chloride) 100 mls @ 10 mls/hr IV .Q10H [facility] Last Admin: 06/20/24 06:22 Dose: 10 mg/hr, 10 mls/hr Insulin Aspart (Insulin Aspart (Novolog) 100 Unit/Ml Vial) 0 unit SQ ACHS [facility]; Protocol Last Admin: 06/20/24 06:25 Dose: 1 unit Isosorbide Mononitrate (Isosorbide Mononitrate Er 30 Mg Tab.Er.24h) 30 mg PO DAILY [facility] Last Admin: 06/19/24 09:14 Dose: 30 mg Magnesium Oxide (Magnesium Oxide 400 Mg Tab) 400 mg PO BID [facility] Last Admin: 06/20/24 08:06 Dose: 400 mg Metformin HCl (Metformin 500 Mg Tab) 500 mg PO HS [facility] Last Admin: 06/18/24 20:55 Dose: 500 mg Metolazone (Metolazone 5 Mg Tab) 5 mg PO DAILY [facility] Last Admin: 06/19/24 12:48 Dose: 5 mg Metoprolol Succinate (Metoprolol Succinate (Er) 50 Mg Tab.Er.24h) 50 mg PO DAILY [facility] Last Admin: 06/20/24 08:06 Dose: 50 mg Nitroglycerin (Nitroglycerin Sl Tabs 0.4 Mg Tab) 0.4 mg SUBLINGUAL Q5M PRN PRN Reason: Chest Pain Pantoprazole Sodium (Pantoprazole 40 Mg Tablet) 40 mg PO HS [facility] Last Admin: 06/19/24 20:31 Dose: 40 mg 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 . Denies any history of smoking or alcohol. Physical examination: VITAL SIGNS: 97.1, 84, 18, 111/61, 95% room GENERAL: BMI 32, reclining bed awake EYES: Pupils equal. Conjunctiva normal. HEENT: External appearance of nose and ears normal, oral cavity-white spots NECK: JVD not raised; masses not palpable. HEART: First and second heart sounds are normal; some decrease in edema LUNGS: Respiratory rate increased, decreased breath sounds, ABDOMEN: Soft, nontender, liver spleen not palpable, no masses palpable. PSYCH: Alert and oriented x3; mood and affect with anxious MUSCULOSKELETAL:No Clubbing/cyanosis;muscles-grossly intact Investigation: June 20: Potassium 3.3 BUN 100 creatinine 2.21 June 18: White count 17 hemoglobin 15.1 platelets 197 sodium 132 potassium 4.3 BUN 102 creatinine 2.3 AST 149 ALT 187 Troponin I 0.4, 0.4 proBNP [id number] EKG tracing personally reviewed by me-atrial fibrillation. Right bundle dannielle block pattern. ST-T wave changes. Chest x-ray film personally reviewed by me-cardiomegaly. Pulm edema. Pleural effusion Recent labs June 12: Potassium 4.2 BUN 85 creatinine 2.36 Renal ultrasound: No evidence of obstructive uropathy or renal calculi 2D echocardiogram: EF 20%: Mild to moderate TR. Assessment and plan: -Acute on chronic congestive heart failure from systolic dysfunction EF 20%. Ischemic cardiomyopathy: Slow to respond Lasix drip 10 mg an hour. Strict I's and O's. Fluid restriction. Follow labs closely Cardiology following -Oral candidiasis Diflucan # Acute kidney injury ATN secondary to hypotension-cardiorenal syndrome. No obstructive uropathy. Nephrology following -Troponinemia is likely secondary to chronic kidney disease. No ACS #CKD stage IIIb:Likely nephrosclerosis, baseline creatinine 1.8-2 mg/dL. Follow creatinine #Persistent atrial fibrillation: Eliquis, Toprol-XL 50 mg a day Cardiology following -Hepatitis picture with intrahepatic cholestasis. Possibly with from CHF Hold Lipitor -Type II lactic acidosis. No evidence of infection -Troponinemia: From underlying CKD. No ACS #CAD with prior stent in November 2020: Beta-jairo, aspirin #Intermittent asthma: DuoNeb. #Depression: Celexa 20 mg nightly and BuSpar 10 mg twice daily #Essential hypertension: Beta-jairo #Hyperlipidemia: Lipitor 80 mg and fenofibrate 54 mg p.o. daily-held currently because of elevated liver enzymes -Full code Has the patient up in a chair. Continue Lasix drip follow labs. Past Medical History Past Medical History: Atrial Fibrillation, Asthma, Coronary Artery Disease (CAD), Chest Pain / Angina, CVA/TIA, Diabetes Mellitus, Deep Vein Thrombosis (DVT), GERD/Reflux, Hyperlipidemia, Hypertension, Myocardial Infarction (MA), Osteoarthritis (OA), Renal Disease, Skin Disorder Additional Past Medical History / Comment(s): Hx CVA 11/30, had stent placed. Some trouble remembering things since. Hx left DVT. 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 Current vision problems and headaches. Psorasis. Gout. Last Myocardial Infarction Date:: 09/02 History of Any Multi-Drug Resistant Organisms: None Reported Past Surgical History: Heart Catheterization With Stent, Orthopedic Surgery Additional Past Surgical History / Comment(s): Left knee surgery, right shoulder surgery, bilateral cataract surgery. eye inplants Past Anesthesia/Blood Transfusion Reactions: No Reported Reaction, Motion Sickness Date of Last Stent Placement:: 11/2020 Past Psychological History: Anxiety, Depression Smoking Status: Never smoker Past Alcohol Use History: None Reported Past Drug Use History: None Reported
[2024-06-20 16:35] LABS: Glucose,Whole Blood 283 mg/dL (70-110)
[2024-06-20] MEDS: BENZOCAINE/MENTHOL LOZENG 1 EACH LOZENGE MUCOUS MEM PRN (16:40)
[2024-06-20 20:12] LABS: Glucose,Whole Blood 321 mg/dL (70-110)
[2024-06-21] MEDS: CLOTRIMAZOLE 1% CREAM 30 GM TUBE TOPICAL PRN (02:05)
[2024-06-21 06:05] LABS: Glucose,Whole Blood 186 mg/dL (70-110)
[2024-06-21 07:38] LABS: African American GFR (CKD) 31 (>60 ml/min/1.73 sqM); Blood Urea Nitrogen 100 mg/dL (9-20); Calcium 9.8 mg/dL (8.4-10.2); Chloride 82 mmol/L (98-107); Glucose 158 mg/dL (74-99); Magnesium 2.2 mg/dL (1.6-2.3); Non-African American GFR(CKD) 27 (>60 ml/min/1.73 sqM); Potassium 3.9 mmol/L (3.5-5.1); Sodium 133 mmol/L (137-145)
[2024-06-21 07:45] LABS: Anion Gap 10 mmol/L
[2024-06-21 07:52] LABS: Carbon Dioxide 41 mmol/L (22-30)
[2024-06-21 09:16] LABS: ABG HCO3 39 mmol/L (21-25); ABG Oxygen Saturation 90.7 % (94-97); ABG PCO2 49 mmHg (35-45); ABG PH 7.52 (7.35-7.45); ABG PO2 61 mmHg (83-108); ABG TCO2 41 mmol/L (19-24); Allen Test Performed? Yes
--- NOTE | 2024-06-21 09:27 | P.PN ---
Subjective Patient is seen in follow-up for chronic kidney disease. Renal function stable. Nonoliguric. Now on room air. Denies chest pain or shortness of breath. Vital signs are stable. General: No acute distress. HEENT: Head exam is unremarkable. LUNGS: Scattered rhonchi. HEART: Rate and Rhythm are regular. ABDOMEN: Nontender. EXTREMITITES: 1+ edema. Objective - Vital Signs Vital signs: Vital Signs Temp 97.5 F L 06/21/24 08:11 Pulse 97 06/21/24 08:11 Resp 18 06/21/24 08:11 BP 103/55 06/21/24 08:11 Pulse Ox 94 L 06/21/24 08:11 FiO2 Intake & Output 06/20/24 06/21/24 06/21/24 18:59 06:59 18:59 Intake Total 933.167 76.5 311.333 Output Total 2500 2200 Balance -1566.833 -2123.5 311.333 Weight 93.4 kg Intake: Intake, IV Titration 93.167 76.5 89.333 Amount Furosemide 100 mg In 93.167 76.5 89.333 Sodium Chloride 0.9% 90 ml @ 10 MG/HR 10 mls/hr IV .Q10H [facility] Rx#: [id number] Oral 840 222 Output: Urine 2500 2200 Other: Voiding Method External Catheter External Catheter External Catheter - Labs CBC & Chem 7: 06/18/24 12:58 06/21/24 06:48 Labs: Abnormal Lab Results - Last 24 Hours (Table) 06/20/24 06/20/24 06/20/24 Range/Units 07:17 11:28 16:33 ABG pH (7.35-7.45) ABG pCO2 (35-45) mmHg ABG pO2 (83-108) mmHg ABG HCO3 (21-25) mmol/L ABG Total CO2 (19-24) mmol/L ABG O2 Saturation (94-97) % Sodium (137-145) mmol/L Potassium (3.5-5.1) mmol/L Chloride (98-107) mmol/L Carbon Dioxide (22-30) mmol/L BUN (9-20) mg/dL Creatinine (0.66-1.25) mg/dL Glucose (74-99) mg/dL POC Glucose (mg/dL) 316 H 283 H (70-110) mg/dL Hemoglobin A1c 9.5 H (<=6.0) % 06/20/24 06/20/24 06/21/24 Range/Units 17:00 20:08 05:55 ABG pH (7.35-7.45) ABG pCO2 (35-45) mmHg ABG pO2 (83-108) mmHg ABG HCO3 (21-25) mmol/L ABG Total CO2 (19-24) mmol/L ABG O2 Saturation (94-97) % Sodium (137-145) mmol/L Potassium 3.3 L (3.5-5.1) mmol/L Chloride (98-107) mmol/L Carbon Dioxide (22-30) mmol/L BUN (9-20) mg/dL Creatinine (0.66-1.25) mg/dL Glucose (74-99) mg/dL POC Glucose (mg/dL) 321 H 186 H (70-110) mg/dL Hemoglobin A1c (<=6.0) % 06/21/24 06/21/24 Range/Units 06:48 09:13 ABG pH 7.52 H (7.35-7.45) ABG pCO2 49 H (35-45) mmHg ABG pO2 61 L (83-108) mmHg ABG HCO3 39 H (21-25) mmol/L ABG Total CO2 41 H (19-24) mmol/L ABG O2 Saturation 90.7 L (94-97) % Sodium 133 L (137-145) mmol/L Potassium (3.5-5.1) mmol/L Chloride 82 L (98-107) mmol/L Carbon Dioxide 41 H* (22-30) mmol/L BUN 100 H (9-20) mg/dL Creatinine 2.27 H (0.66-1.25) mg/dL Glucose 158 H (74-99) mg/dL POC Glucose (mg/dL) (70-110) mg/dL Hemoglobin A1c (<=6.0) % Assessment and Plan Plan: Assessment: 1. Chronic kidney disease stage IIIb secondary to diabetic kidney disease and cardiorenal syndrome. Baseline creatinine 2-2.3. GFR near baseline. Recent UA showed no proteinuria. Ultrasound from last month showed no hydronephrosis. 2. Acute on chronic systolic CHF ejection fraction of 20% with mild to moderate tricuspid regurgitation. 3. Volume overload. Improving with diuresis. 4. Coronary artery disease. 5. Diabetes mellitus. 6. Hypervolemic hyponatremia. Also component of hypertonicity from hyperglycemia. 7. Hypertension with chronic kidney disease. Stable. 8. Hypokalemia from diuresis. Magnesium normal. Replaced. Improved. 9. Metabolic alkalosis with respiratory compensation. Plan: Stop Lasix drip. Add IV Lasix 40 mg twice daily. Stop metolazone. Add Diamox. Maintain Farxiga. Strict I's and O's. Low-salt diet and 1500 cc fluid restriction. Blood glucose control. Continue to monitor renal function and urine output. Replace potassium.
[2024-06-21] MEDS: FUROSEMIDE 10 MG/ML 4 ML VIAL IV SCH (09:49)
[2024-06-21] MEDS: POTASSIUM CHLORIDE ER 20 MEQ TAB.ER PO STA (10:02)
[2024-06-21 11:38] LABS: Glucose,Whole Blood 390 mg/dL (70-110)
--- NOTE | 2024-06-21 12:17 | P.PN ---
Subjective Progress Note Date: 06/21/24 This is a 78-year-old male patient of Dr. Juan Wellington with past medical history of paroxysmal atrial fibrillation, coronary artery disease on medical therapy, hypertension, hyperlipidemia, diabetes mellitus type 2, chronic kidney disease stage IIIb, family history of premature coronary artery disease. We have been asked to evaluate the patient for NSTEMI. Patient had a recent hospitalization 06/03 - 06/12 at which time he was seen by cardiology for persistent atrial fibrillation flat troponin secondary to hypoperfusion. Patient presented to the emergency center due to shortness of breath along with leg swelling. Symptoms have been going on for the past week. He has been taking his medications as directed at home. Blood pressure 107/74, heart rate 98, pulse ox 96% on 2 L nasal cannula. Patient has been started on Lasix drip and he is followed by nephrology. EKG: Atrial fibrillation with right bundle branch block Chest x-ray: Stable bilateral lower lobe infiltrate and small pleural effusion. Laboratory studies: WBC 17, hemoglobin 15.1. INR 1.5. Sodium 131, CO2 33, BUN 102, creatinine 2.21. Lactic acid 2.7. Troponin 0.47, 0.473, 0.468. proBNP 16,700. Home cardiac medications: Eliquis 5 mg twice daily, aspirin 81 mg daily, atorvastatin 80 mg daily, Farxiga 5 mg daily, fenofibrate 67 mg daily, Lasix 40 mg twice daily, Imdur 30 mg daily, lisinopril 10 mg at bedtime, magnesium oxide 800 mg twice daily, metoprolol succinate 50 mg daily. Lexiscan Cardiolite stress test performed 10/04/2023 in the office revealed negative stress test by EKG criteria. Abnormal nuclear scan showing evidence of inferior lateral myocardial infarction with LV systolic dysfunction and EF 40% without evidence of ischemia. Cardiac catheterization performed 09/02/2021 revealed moderate stenosis involving the right coronary artery. Echocardiogram performed 06/04/2024 revealed EF 25 %. Four-chamber enlargement. Mild mitral regurgitation. Mild to moderate tricuspid regurgitation, aortic valve sclerosis with calcification June 20, 2024 Patient seen and examined at bedside this a.m. Still continues to be on IV Lasix drip with good urine output. Still appears volume overloaded. June 21, 2024 Renal function has been stable. Appropriately urine output. IV Lasix drip. By the nephrology team. Physical examination: Gen: This is a 78-year-old male in no acute distress VS: reviewed HEENT: Head is atraumatic, normocephalic. Pupils equal, round. Sclerae is anicteric. NECK: Supple. No JVD. LUNGS: Diminished breath sounds. No intercostal retractions. HEART: Irregular rate and rhythm. No murmur. ABDOMEN: Soft No tenderness. EXTREMITIES: 2+ lower extremity edema. No calf tenderness. NEUROLOGICAL: Patient is awake, alert and oriented x3. Assessment: Chronically elevated troponin due to poor renal clearance, less likely ACS Acute on chronic systolic heart failure Cardiomyopathy with EF of 25% Permanent atrial fibrillation Coronary artery disease on medical therapy Hypertension Hyperlipidemia Diabetes mellitus type 2 Family history of premature coronary artery disease Plan: Continue home cardiac medications Agree with discontinuing IV Lasix drips and starting IV pushes Stopped metolazone and Diamox. Objective - Vital Signs Vital signs: Vital Signs Temp 97.5 F L 06/21/24 08:11 Pulse 70 06/21/24 11:15 Resp 18 06/21/24 11:15 BP 92/61 06/21/24 11:15 Pulse Ox 97 06/21/24 11:15 FiO2 Intake & Output 06/20/24 06/21/24 06/21/24 18:59 06:59 18:59 Intake Total 933.167 76.5 327.000 Output Total 2500 2200 350 Balance -1566.833 -2123.5 -23.000 Weight 93.4 kg Intake: Intake, IV Titration 93.167 76.5 105.000 Amount Furosemide 100 mg In 93.167 76.5 105.000 Sodium Chloride 0.9% 90 ml @ 10 MG/HR 10 mls/hr IV .Q10H [facility] Rx#: [id number] Oral 840 222 Output: Urine 2500 2200 350 Other: Voiding Method External Catheter External Catheter External Catheter - Labs CBC & Chem 7: 06/18/24 12:58 06/21/24 06:48 Labs: Abnormal Lab Results - Last 24 Hours (Table) 06/20/24 06/20/24 06/20/24 Range/Units 07:17 16:33 17:00 ABG pH (7.35-7.45) ABG pCO2 (35-45) mmHg ABG pO2 (83-108) mmHg ABG HCO3 (21-25) mmol/L ABG Total CO2 (19-24) mmol/L ABG O2 Saturation (94-97) % Sodium (137-145) mmol/L Potassium 3.3 L (3.5-5.1) mmol/L Chloride (98-107) mmol/L Carbon Dioxide (22-30) mmol/L BUN (9-20) mg/dL Creatinine (0.66-1.25) mg/dL Glucose (74-99) mg/dL POC Glucose (mg/dL) 283 H (70-110) mg/dL Hemoglobin A1c 9.5 H (<=6.0) % 06/20/24 06/21/24 06/21/24 Range/Units 20:08 05:55 06:48 ABG pH (7.35-7.45) ABG pCO2 (35-45) mmHg ABG pO2 (83-108) mmHg ABG HCO3 (21-25) mmol/L ABG Total CO2 (19-24) mmol/L ABG O2 Saturation (94-97) % Sodium 133 L (137-145) mmol/L Potassium (3.5-5.1) mmol/L Chloride 82 L (98-107) mmol/L Carbon Dioxide 41 H* (22-30) mmol/L BUN 100 H (9-20) mg/dL Creatinine 2.27 H (0.66-1.25) mg/dL Glucose 158 H (74-99) mg/dL POC Glucose (mg/dL) 321 H 186 H (70-110) mg/dL Hemoglobin A1c (<=6.0) % 06/21/24 06/21/24 Range/Units 09:13 11:36 ABG pH 7.52 H (7.35-7.45) ABG pCO2 49 H (35-45) mmHg ABG pO2 61 L (83-108) mmHg ABG HCO3 39 H (21-25) mmol/L ABG Total CO2 41 H (19-24) mmol/L ABG O2 Saturation 90.7 L (94-97) % Sodium (137-145) mmol/L Potassium (3.5-5.1) mmol/L Chloride (98-107) mmol/L Carbon Dioxide (22-30) mmol/L BUN (9-20) mg/dL Creatinine (0.66-1.25) mg/dL Glucose (74-99) mg/dL POC Glucose (mg/dL) 390 H (70-110) mg/dL Hemoglobin A1c (<=6.0) %
[2024-06-21 16:28] LABS: Glucose,Whole Blood 258 mg/dL (70-110)
--- NOTE | 2024-06-21 19:53 | P.PN ---
Progress Note - Text Progress Note Date: 06/21/24 Chief Complaint: Increased swelling, decreased activity 78-year-old male, follows with PCP Dr. Baker with a past medical history of atrial fibrillation on anticoagulation with Eliquis, coronary disease stent replacement, hypertension, hyperlipidemia, diabetes type 2 non -insulin-dependent, CKD and prior history of CVAstatus post stent trouble remembering things and prior history of left lower extremity DVT, anxiety/depression. Chronic back pain does use a brace Patient presents with increasing swelling of the legs. Finding it difficult to walk. Decreased appetite. Recently diagnosed with UTI was given antibiotic. Does use a walker. Just weak and tired. Also short of breath. Some orthopnea. June 19: Patient seen this afternoon overflowing the ER. Remains on IV Lasix drip 10 mg an hour. Making good urine output. Some improvement in breathing. Eating some. June 20: Patient remains on IV Lasix drip. Urine output. Swelling and breathing better. Did tolerate some diet. June 21: Seen by cardiology earlier today. Switched over to IV bolus Lasix 40 every 12. About 6 L negative fluid balance. Still has significant edema. Up in recliner. Eating about 50%. Active Medications Acetazolamide Sodium (Acetazolamide Sodium 500 Mg Vial) 250 mg IV Q12HR [facility] Last Admin: 06/21/24 09:49 Dose: 250 mg Albuterol Sulfate (Albuterol Nebulized 2.5 Mg/3 Ml) 2.5 mg INHALATION RT-Q4H PRN PRN Reason: Shortness Of Breath Last Admin: 06/19/24 02:01 Dose: 2.5 mg Albuterol/Ipratropium (Ipratropium-Albuterol 3 Ml Neb) 3 ml INHALATION RT-TID [facility] Last Admin: 06/21/24 15:08 Dose: 3 ml Allopurinol (Allopurinol 100 Mg Tab) 100 mg PO DAILY [facility] Last Admin: 06/21/24 08:17 Dose: 100 mg Apixaban (Apixaban 2.5 Mg Tablet) 2.5 mg PO BID [facility]; Protocol Last Admin: 06/21/24 08:17 Dose: 2.5 mg Aspirin (Aspirin 81 Mg) 81 mg PO HS [facility] Last Admin: 06/20/24 20:18 Dose: 81 mg Benzocaine/Menthol (Benzocaine/Menthol Lozeng 1 Each Lozenge) 1 each MUCOUS MEM Q6HR PRN PRN Reason: Sore Throat Last Admin: 06/20/24 16:40 Dose: 1 each Budesonide/Formoterol Fumarate (Symbicort 160-4.5 Mcg Inhaler) 1 puff INHALATION RT-BID [facility] Last Admin: 06/21/24 07:46 Dose: 1 puff Buspirone HCl (Buspirone Hcl 10 Mg Tab) 10 mg PO BID [facility] Last Admin: 06/21/24 08:17 Dose: 10 mg Citalopram Hydrobromide (Citalopram Hydrobromide 20 Mg Tab) 20 mg PO [facility] Last Admin: 06/20/24 20:18 Dose: 20 mg Clotrimazole (Clotrimazole 1% Cream 30 Gm Tube) 1 applic TOPICAL BID PRN; Protocol PRN Reason: Skin Irritation Last Admin: 06/21/24 02:05 Dose: 1 applic Dapagliflozin (Dapagliflozin Propanediol 5 Mg Tablet) 5 mg PO DAILY [facility] Last Admin: 06/21/24 08:17 Dose: 5 mg Dextrose/Water (Dextrose 50% Syringe 50 Ml) 25 ml IVP PER PROTOCOL PRN; Protocol PRN Reason: Hypoglycemia Dextrose/Water (Dextrose 50% Syringe 50 Ml) 50 ml IVP PER PROTOCOL PRN; Protocol PRN Reason: Hypoglycemia Fenofibrate (Fenofibrate 54 Mg Tab) 54 mg PO DAILY [facility] Last Admin: 06/21/24 08:17 Dose: 54 mg Fluconazole (Fluconazole 100 Mg Tab) 100 mg PO DAILY [facility]; Protocol Last Admin: 06/21/24 08:17 Dose: 100 mg Furosemide (Furosemide 10 Mg/Ml 4 Ml Vial) 40 mg IV Q12HR [facility] Last Admin: 06/21/24 09:49 Dose: 40 mg Insulin Aspart (Insulin Aspart (Novolog) 100 Unit/Ml Vial) 0 unit SQ ACHS [facility]; Protocol Last Admin: 06/21/24 16:33 Dose: 3 unit Isosorbide Mononitrate (Isosorbide Mononitrate Er 30 Mg Tab.Er.24h) 30 mg PO DAILY [facility] Last Admin: 06/21/24 11:28 Dose: Not Given Magnesium Oxide (Magnesium Oxide 400 Mg Tab) 400 mg PO BID [facility] Last Admin: 06/21/24 08:17 Dose: 400 mg Metformin HCl (Metformin 500 Mg Tab) 500 mg PO HS [facility] Last Admin: 06/18/24 20:55 Dose: 500 mg Metoprolol Succinate (Metoprolol Succinate (Er) 50 Mg Tab.Er.24h) 50 mg PO DAILY [facility] Last Admin: 06/21/24 08:17 Dose: 50 mg Nitroglycerin (Nitroglycerin Sl Tabs 0.4 Mg Tab) 0.4 mg SUBLINGUAL Q5M PRN PRN Reason: Chest Pain Pantoprazole Sodium (Pantoprazole 40 Mg Tablet) 40 mg PO [facility] Last Admin: 06/20/24 20:18 Dose: 40 mg Senna (Sennosides 8.6 Mg Tab) 8.6 mg PO BID [facility] 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 . Denies any history of smoking or alcohol. Physical examination: VITAL SIGNS: 97, 62, 18, 109 x 62, 39% on 2 L GENERAL: In a recliner EYES: Pupils equal. Conjunctiva normal. HEENT: External appearance of nose and ears normal, oral cavity-white spots NECK: JVD not raised; masses not palpable. HEART: First and second heart sounds are normal; edema present LUNGS: Respiratory rate increased, decreased breath sounds, ABDOMEN: Soft, nontender, liver spleen not palpable, no masses palpable. PSYCH: Alert and oriented x3; mood and affect a bit tired MUSCULOSKELETAL:No Clubbing/cyanosis;muscles-grossly intact Investigation: June 21: Sodium 133 potassium 3.9 bicarb 41 BUN 100 creatinine 2.27 June 20: Potassium 3.3 BUN 100 creatinine 2.21 June 18: White count 17 hemoglobin 15.1 platelets 197 sodium 132 potassium 4.3 BUN 102 creatinine 2.3 AST 149 ALT 187 Troponin I 0.4, 0.4 proBNP [id number] EKG tracing personally reviewed by me-atrial fibrillation. Right bundle dannielle block pattern. ST-T wave changes. Chest x-ray film personally reviewed by me-cardiomegaly. Pulm edema. Pleural effusion Recent labs June 12: Potassium 4.2 BUN 85 creatinine 2.36 Renal ultrasound: No evidence of obstructive uropathy or renal calculi 2D echocardiogram: EF 20%: Mild to moderate TR. Assessment and plan: -Acute on chronic congestive heart failure from systolic dysfunction EF 20%. Ischemic cardiomyopathy: Slow to respond Lasix drip 10 mg an hour.-Switched over to Lasix 40 mg twice daily. Diamox added Strict I's and O's. Fluid restriction. Follow labs closely Cardiology following -Metabolic alkalosis from volume contraction from diuresis Diamox added -Oral candidiasis Diflucan # Acute kidney injury ATN secondary to hypotension-cardiorenal syndrome. No obstructive uropathy. Nephrology following -Troponinemia is likely secondary to chronic kidney disease. No ACS #CKD stage IIIb:Likely nephrosclerosis, baseline creatinine 1.8-2 mg/dL. Follow creatinine #Persistent atrial fibrillation: Eliquis, Toprol-XL 50 mg a day Cardiology following -Hepatitis picture with intrahepatic cholestasis. Possibly with from CHF Hold Lipitor -Type II lactic acidosis. No evidence of infection -Troponinemia: From underlying CKD. No ACS #CAD with prior stent in November 2020: Beta-jairo, aspirin #Intermittent asthma: DuoNeb. #Depression: Celexa 20 mg nightly and BuSpar 10 mg twice daily #Essential hypertension: Beta-jairo #Hyperlipidemia: Lipitor 80 mg and fenofibrate 54 mg p.o. daily-held currently because of elevated liver enzymes -Full code IV Lasix bolus twice daily. Repeat labs tomorrow. Emery wrap's Past Medical History Past Medical History: Atrial Fibrillation, Asthma, Coronary Artery Disease (CAD), Chest Pain / Angina, CVA/TIA, Diabetes Mellitus, Deep Vein Thrombosis (DVT), GERD/Reflux, Hyperlipidemia, Hypertension, Myocardial Infarction ([place]), Osteoarthritis (OA), Renal Disease, Skin Disorder Additional Past Medical History / Comment(s): Hx CVA 11/30, had stent placed. Some trouble remembering things since. Hx left DVT. 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 Current vision problems and headaches. Psorasis. Gout. Last Myocardial Infarction Date:: 09/02 History of Any Multi-Drug Resistant Organisms: None Reported Past Surgical History: Heart Catheterization With Stent, Orthopedic Surgery Additional Past Surgical History / Comment(s): Left knee surgery, right shoulder surgery, bilateral cataract surgery. eye inplants Past Anesthesia/Blood Transfusion Reactions: No Reported Reaction, Motion Sickness Date of Last Stent Placement:: 11/2020 Past Psychological History: Anxiety, Depression Smoking Status: Never smoker Past Alcohol Use History: None Reported Past Drug Use History: None Reported
[2024-06-21 20:09] LABS: Glucose,Whole Blood 345 mg/dL (70-110)
[2024-06-21] MEDS: SENNOSIDES 8.6 MG TAB PO SCH (21:26)
[2024-06-22 06:05] LABS: Glucose,Whole Blood 235 mg/dL (70-110)
[2024-06-22 07:09] LABS: ALT 127 U/L (4-49); AST 86 U/L (17-59); African American GFR (CKD) 27 (>60 ml/min/1.73 sqM); Albumin 3.2 g/dL (3.5-5.0); Alkaline Phosphatase 180 U/L (38-126); Anion Gap 9 mmol/L; Blood Urea Nitrogen 99 mg/dL (9-20); Calcium 9.4 mg/dL (8.4-10.2); Chloride 82 mmol/L (98-107); Glucose 223 mg/dL (74-99); Magnesium 2.2 mg/dL (1.6-2.3); Non-African American GFR(CKD) 23 (>60 ml/min/1.73 sqM); Potassium 3.4 mmol/L (3.5-5.1); Sodium 131 mmol/L (137-145); Total Bilirubin 2.3 mg/dL (0.2-1.3); Total Protein 5.6 g/dL (6.3-8.2)
[2024-06-22 08:08] LABS: Carbon Dioxide 40 mmol/L (22-30)
[2024-06-22 11:33] LABS: Glucose,Whole Blood 393 mg/dL (70-110)
--- NOTE | 2024-06-22 11:40 | P.PN ---
Subjective patient is seen for follow-up for chronic kidney disease. No significant complaints today. Blood pressure was low with systolic in the 90s and high 80s. Currently sitting on a bedside chair. Serum creatinine increase to 2.5 mg/dL today. Lasix drip was discontinued yesterday and metolazone was also held. Objective - Vital Signs Vital signs: Vital Signs Temp 98.1 F 06/22/24 08:23 Pulse 69 06/22/24 08:23 Resp 18 06/22/24 08:24 BP 89/55 06/22/24 08:23 Pulse Ox 99 06/22/24 08:23 FiO2 Intake & Output 06/21/24 06/22/24 06/22/24 18:59 06:59 18:59 Intake Total 457.000 240 190 Output Total 1350 1100 Balance -893.000 -860 190 Weight 65 kg Intake: IV 10 10 Invasive Line 2 10 10 Intake, IV Titration 105.000 Amount Furosemide 100 mg In 105.000 Sodium Chloride 0.9% 90 ml @ 10 MG/HR 10 mls/hr IV .Q10H [facility] Rx#: [id number] Oral 342 240 180 Output: Urine 1350 1100 Other: Voiding Method External Catheter External Catheter External Catheter - Exam patient is awake, comfortable, no acute distress. Examination of the heart S1 and S2 Examination of the lungs bilateral breath sounds are heard. Decreased breath sounds at the bases Abdomen is soft nontender Examination lower extremity shows edema 1+ bilaterally - Labs CBC & Chem 7: 06/18/24 12:58 06/22/24 06:14 Labs: Abnormal Lab Results - Last 24 Hours (Table) 06/21/24 06/21/24 06/21/24 Range/Units 11:36 16:26 20:08 Sodium (137-145) mmol/L Potassium (3.5-5.1) mmol/L Chloride (98-107) mmol/L Carbon Dioxide (22-30) mmol/L BUN (9-20) mg/dL Creatinine (0.66-1.25) mg/dL Glucose (74-99) mg/dL POC Glucose (mg/dL) 390 H 258 H 345 H (70-110) mg/dL Total Bilirubin (0.2-1.3) mg/dL AST (17-59) U/L ALT (4-49) U/L Alkaline Phosphatase (38-126) U/L Total Protein (6.3-8.2) g/dL Albumin (3.5-5.0) g/dL 06/22/24 06/22/24 06/22/24 Range/Units 06:04 06:14 11:32 Sodium 131 L (137-145) mmol/L Potassium 3.4 L (3.5-5.1) mmol/L Chloride 82 L (98-107) mmol/L Carbon Dioxide 40 H (22-30) mmol/L BUN 99 H (9-20) mg/dL Creatinine 2.55 H (0.66-1.25) mg/dL Glucose 223 H (74-99) mg/dL POC Glucose (mg/dL) 235 H 393 H (70-110) mg/dL Total Bilirubin 2.3 H (0.2-1.3) mg/dL AST 86 H (17-59) U/L ALT 127 H (4-49) U/L Alkaline Phosphatase 180 H (38-126) U/L Total Protein 5.6 L (6.3-8.2) g/dL Albumin 3.2 L (3.5-5.0) g/dL Assessment and Plan Assessment: 1. Chronic kidney disease stage IIIb secondary to diabetic kidney disease and cardiorenal syndrome. Baseline creatinine 2-2.3. GFR near baseline. Recent UA showed no proteinuria. Ultrasound from last month showed no hydronephrosis. 2. Acute on chronic systolic CHF ejection fraction of 20% with mild to moderate tricuspid regurgitation. 3. Volume overload. Improving with diuresis. 4. Coronary artery disease. 5. Diabetes mellitus. 6. Hypervolemic hyponatremia. Also component of hypertonicity from hyperglycemia. 7. Hypertension with chronic kidney disease. Stable. 8. Hypokalemia from diuresis. Magnesium normal. Replaced. Improved. 9. Metabolic alkalosis with respiratory compensation. 10. Acute kidney injury, mostly cardiorenal. Diuretics have been decreased. Blood pressure is on the lower side. Metoprolol will be decreased. Plan: decrease metoprolol. Decrease Lasix further Repeat labs in a.m.
[2024-06-22] MEDS: POTASSIUM CHLORIDE ER 20 MEQ TAB.ER PO SCH (11:48)
--- NOTE | 2024-06-22 12:30 | P.PN ---
Progress Note - Text Progress Note Date: 06/22/24 Chief Complaint: Increased swelling, decreased activity 78-year-old male, follows with PCP Dr. Baker with a past medical history of atrial fibrillation on anticoagulation with Eliquis, coronary disease stent replacement, hypertension, hyperlipidemia, diabetes type 2 non -insulin-dependent, CKD and prior history of CVAstatus post stent trouble remembering things and prior history of left lower extremity DVT, anxiety/depression. Chronic back pain does use a brace Patient presents with increasing swelling of the legs. Finding it difficult to walk. Decreased appetite. Recently diagnosed with UTI was given antibiotic. Does use a walker. Just weak and tired. Also short of breath. Some orthopnea. June 19: Patient seen this afternoon overflowing the ER. Remains on IV Lasix drip 10 mg an hour. Making good urine output. Some improvement in breathing. Eating some. June 20: Patient remains on IV Lasix drip. Urine output. Swelling and breathing better. Did tolerate some diet. June 21: Seen by cardiology earlier today. Switched over to IV bolus Lasix 40 every 12. About 6 L negative fluid balance. Still has significant edema. Up in recliner. Eating about 50%. June 22: Patient remains on IV Lasix 40 mg every 12. IV Diamox. Negative fluid balance. Still has significant lower extremity edema. Had BREAKFAST. Up in recliner. Tired. Daily that Active Medications Acetazolamide Sodium (Acetazolamide Sodium 500 Mg Vial) 250 mg IV Q12HR [facility] Last Admin: 06/22/24 12:08 Dose: 250 mg Albuterol Sulfate (Albuterol Nebulized 2.5 Mg/3 Ml) 2.5 mg INHALATION RT-Q4H PRN PRN Reason: Shortness Of Breath Last Admin: 06/19/24 02:01 Dose: 2.5 mg Albuterol/Ipratropium (Ipratropium-Albuterol 3 Ml Neb) 3 ml INHALATION RT-TID [facility] Last Admin: 06/22/24 12:23 Dose: 3 ml Allopurinol (Allopurinol 100 Mg Tab) 100 mg PO DAILY [facility] Last Admin: 06/22/24 08:35 Dose: 100 mg Apixaban (Apixaban 2.5 Mg Tablet) 2.5 mg PO BID [facility]; Protocol Last Admin: 06/22/24 08:34 Dose: 2.5 mg Aspirin (Aspirin 81 Mg) 81 mg PO HS [facility] Last Admin: 06/21/24 21:26 Dose: 81 mg Atorvastatin Calcium (Atorvastatin 40 Mg Tab) 40 mg PO HS [facility] Benzocaine/Menthol (Benzocaine/Menthol Lozeng 1 Each Lozenge) 1 each MUCOUS MEM Q6HR PRN PRN Reason: Sore Throat Last Admin: 06/20/24 16:40 Dose: 1 each Budesonide/Formoterol Fumarate (Symbicort 160-4.5 Mcg Inhaler) 1 puff INHALATION RT-BID [facility] Last Admin: 06/22/24 07:39 Dose: 1 puff Buspirone HCl (Buspirone Hcl 10 Mg Tab) 10 mg PO BID [facility] Last Admin: 06/22/24 08:34 Dose: 10 mg Citalopram Hydrobromide (Citalopram Hydrobromide 20 Mg Tab) 20 mg PO HS [facility] Last Admin: 06/21/24 21:26 Dose: 20 mg Clotrimazole (Clotrimazole 1% Cream 30 Gm Tube) 1 applic TOPICAL BID PRN; Protocol PRN Reason: Skin Irritation Last Admin: 06/21/24 02:05 Dose: 1 applic Dapagliflozin (Dapagliflozin Propanediol 5 Mg Tablet) 5 mg PO DAILY [facility] Last Admin: 06/22/24 08:35 Dose: 5 mg Dextrose/Water (Dextrose 50% Syringe 50 Ml) 25 ml IVP PER PROTOCOL PRN; Protocol PRN Reason: Hypoglycemia Dextrose/Water (Dextrose 50% Syringe 50 Ml) 50 ml IVP PER PROTOCOL PRN; Protocol PRN Reason: Hypoglycemia Fluconazole (Fluconazole 100 Mg Tab) 100 mg PO DAILY [facility]; Protocol Last Admin: 06/22/24 08:34 Dose: 100 mg Furosemide (Furosemide 10 Mg/Ml 4 Ml Vial) 40 mg IV Q12HR [facility] Last Admin: 06/22/24 12:08 Dose: 40 mg Insulin Aspart (Insulin Aspart (Novolog) 100 Unit/Ml Vial) 0 unit SQ ACHS [facility]; Protocol Last Admin: 06/22/24 11:48 Dose: 5 unit Isosorbide Mononitrate (Isosorbide Mononitrate Er 30 Mg Tab.Er.24h) 30 mg PO DAILY [facility] Last Admin: 06/22/24 08:35 Dose: 30 mg Magnesium Oxide (Magnesium Oxide 400 Mg Tab) 400 mg PO BID [facility] Last Admin: 06/22/24 08:35 Dose: 400 mg Metformin HCl (Metformin 500 Mg Tab) 500 mg PO [facility] Last Admin: 06/18/24 20:55 Dose: 500 mg Metoprolol Succinate (Metoprolol Succinate (Er) 25 Mg Tab.Er.24h) 25 mg PO DAILY [facility] Nitroglycerin (Nitroglycerin Sl Tabs 0.4 Mg Tab) 0.4 mg SUBLINGUAL Q5M PRN PRN Reason: Chest Pain Pantoprazole Sodium (Pantoprazole 40 Mg Tablet) 40 mg PO [facility] Last Admin: 06/21/24 21:26 Dose: 40 mg Senna (Sennosides 8.6 Mg Tab) 8.6 mg PO BID [facility] Last Admin: 06/22/24 08:35 Dose: 8.6 mg 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 . Denies any history of smoking or alcohol. Physical examination: VITAL SIGNS: 97.8, 73, 18, 100/63, 97% room air GENERAL: In a recliner, tired EYES: Pupils equal. Conjunctiva normal. HEENT: External appearance of nose and ears normal, oral cavity-white spots NECK: JVD not raised; masses not palpable. HEART: First and second heart sounds are normal; edema present LUNGS: Respiratory rate increased, decreased breath sounds, ABDOMEN: Soft, nontender, liver spleen not palpable, no masses palpable. PSYCH: Alert and oriented x3; mood and affect a bit tired MUSCULOSKELETAL:No Clubbing/cyanosis;muscles-grossly intact Investigation: June 22: Sodium 131 potassium 3.4 BUN 99 creatinine 2.55 bicarb 40 AST 86 ALT 127 June 21: Sodium 133 potassium 3.9 bicarb 41 BUN 100 creatinine 2.27 June 20: Potassium 3.3 BUN 100 creatinine 2.21 June 18: White count 17 hemoglobin 15.1 platelets 197 sodium 132 potassium 4.3 BUN 102 creatinine 2.3 AST 149 ALT 187 Troponin I 0.4, 0.4 proBNP [id number] EKG tracing personally reviewed by me-atrial fibrillation. Right bundle dannielle block pattern. ST-T wave changes. Chest x-ray film personally reviewed by me-cardiomegaly. Pulm edema. Pleural effusion Recent labs June 12: Potassium 4.2 BUN 85 creatinine 2.36 Renal ultrasound: No evidence of obstructive uropathy or renal calculi 2D echocardiogram: EF 20%: Mild to moderate TR. Assessment and plan: -Acute on chronic congestive heart failure from systolic dysfunction EF 20%. Ischemic cardiomyopathy: Slow to respond Initially Lasix drip 10 mg an hour.-Switched over to Lasix 40 mg twice daily. Diamox IV Strict I's and O's. Fluid restriction. Follow labs closely Cardiology following -Metabolic alkalosis from volume contraction from diuresis Diamox IV -Oral candidiasis Diflucan # Acute kidney injury ATN secondary to hypotension-cardiorenal syndrome.: Slow worsening No obstructive uropathy. Nephrology following -Troponinemia is likely secondary to chronic kidney disease. No ACS #CKD stage IIIb:Likely nephrosclerosis, baseline creatinine 1.8-2 mg/dL. Follow creatinine #Persistent atrial fibrillation: Eliquis, Toprol-XL 50 mg a day Cardiology following -Hepatitis picture with intrahepatic cholestasis. Possibly with from CHF Hold Lipitor -Type II lactic acidosis. No evidence of infection -Troponinemia: From underlying CKD. No ACS #CAD with prior stent in November 2020: Beta-jairo, aspirin #Intermittent asthma: DuoNeb. #Depression: Celexa 20 mg nightly and BuSpar 10 mg twice daily #Essential hypertension: Beta-jairo #Hyperlipidemia: Lipitor 80 mg and fenofibrate 54 mg p.o. daily-held currently because of elevated liver enzymes -Full code Continue IV Lasix. IV Diamox. Follow closely Past Medical History Past Medical History: Atrial Fibrillation, Asthma, Coronary Artery Disease (CAD), Chest Pain / Angina, CVA/TIA, Diabetes Mellitus, Deep Vein Thrombosis (DVT), GERD/Reflux, Hyperlipidemia, Hypertension, Myocardial Infarction ([place]), [place] teoarthritis (OA), Renal Disease, Skin Disorder Additional Past Medical History / Comment(s): Hx CVA 11/30, had stent placed. Some trouble remembering things since. Hx left DVT. 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 Current vision problems and headaches. Psorasis. Gout. Last Myocardial Infarction Date:: 09/02 History of Any Multi-Drug Resistant Organisms: None Reported Past Surgical History: Heart Catheterization With Stent, Orthopedic Surgery Additional Past Surgical History / Comment(s): Left knee surgery, right shoulder surgery, bilateral cataract surgery. eye inplants Past Anesthesia/Blood Transfusion Reactions: No Reported Reaction, Motion Sickness Date of Last Stent Placement:: 11/2020 Past Psychological History: Anxiety, Depression Smoking Status: Never smoker Past Alcohol Use History: None Reported Past Drug Use History: None Reported
--- NOTE | 2024-06-22 14:13 | P.PN ---
Subjective HISTORY OF PRESENT ILLNESS: This is a 78-year-old male patient of Dr. Juan Wellington with past medical history of paroxysmal atrial fibrillation, coronary artery disease on medical therapy, hypertension, hyperlipidemia, diabetes mellitus type 2, chronic kidney disease stage IIIb, family history of premature coronary artery disease. We have been asked to evaluate the patient for NSTEMI. Patient had a recent hospitalization 06/03 - 06/12 at which time he was seen by cardiology for persistent atrial fibrillation flat troponin secondary to hypoperfusion. Patient presented to the emergency center due to shortness of breath along with leg swelling. Symptoms have been going on for the past week. He has been taking his medications as directed at home. Blood pressure 107/74, heart rate 98, pulse ox 96% on 2 L nasal cannula. Patient has been started on Lasix drip and he is followed by nephrology. EKG: Atrial fibrillation with right bundle branch block Chest x-ray: Stable bilateral lower lobe infiltrate and small pleural effusion. Laboratory studies: WBC 17, hemoglobin 15.1. INR 1.5. Sodium 131, CO2 33, BUN 102, creatinine 2.21. Lactic acid 2.7. Troponin 0.47, 0.473, 0.468. proBNP 16,700. Home cardiac medications: Eliquis 5 mg twice daily, aspirin 81 mg daily, atorvastatin 80 mg daily, Farxiga 5 mg daily, fenofibrate 67 mg daily, Lasix 40 mg twice daily, Imdur 30 mg daily, lisinopril 10 mg at bedtime, magnesium oxide 800 mg twice daily, metoprolol succinate 50 mg daily. Lexiscan Cardiolite stress test performed 10/04/2023 in the office revealed negative stress test by EKG criteria. Abnormal nuclear scan showing evidence of inferior lateral myocardial infarction with LV systolic dysfunction and EF 40% without evidence of ischemia. Cardiac catheterization performed 09/02/2021 revealed moderate stenosis involving the right coronary artery. Echocardiogram performed 06/04/2024 revealed EF 25 %. Four-chamber enlargement. Mild mitral regurgitation. Mild to moderate tricuspid regurgitation, aortic valve sclerosis with calcification 06/22/2024 Patient examined this morning. Patient is sitting up in the chair. Patient c urrently denies chest pain or pressure. Reports shortness of breath is improving. He remains on IV Lasix and IV Diamox. Creatinine today 2.5. Patient's blood pressures have been low with a systolic in the 80s90s. PHYSICAL EXAM: VITAL SIGNS: Reviewed. GENERAL: Well-developed in no acute distress. NECK: Supple. No JVD or thyromegaly LUNGS: Respirations even and unlabored. Lungs essentially clear to auscultation bilaterally. HEART: Irregular rate and rhythm. S1 and S2 heard. EXTREMITIES: Normal range of motion. No clubbing or cyanosis. Peripheral pulses intact. Bilateral lower extremity edema noted. ASSESSMENT: Chronically elevated troponin due to poor renal clearance, less likely ACS Acute on chronic heart failure with reduced EF Acute on chronic kidney disease Hypotension Ischemic cardiomyopathy, EF 25% Permanent atrial fibrillation Coronary artery disease Hypertension Hyperlipidemia Diabetes mellitus type 2 Family history of premature coronary artery disease PLAN: Continue current cardiac medications Continue diuresis per nephrology. Continue to monitor kidney function Continue to monitor blood pressure Further recommendations pending patient course Nurse practitioner note has been reviewed by physician. Signing provider agrees with the documented findings, assessment, and plan of care documented by FARM TRACTOR OPERATOR as a scribe. Objective - Vital Signs Vital signs: Vital Signs Temp 97.8 F 06/22/24 11:40 Pulse 64 06/22/24 12:35 Resp 18 06/22/24 11:40 BP 100/63 06/22/24 11:40 Pulse Ox 97 06/22/24 11:40 FiO2 Intake & Output 06/21/24 06/22/24 06/22/24 18:59 06:59 18:59 Intake Total 457.000 240 190 Output Total 1350 1100 Balance -893.000 -860 190 Weight 65 kg Intake: IV 10 10 Invasive Line 2 10 10 Intake, IV Titration 105.000 Amount Furosemide 100 mg In 105.000 Sodium Chloride 0.9% 90 ml @ 10 MG/HR 10 mls/hr IV .Q10H [facility] Rx#: [id number] Oral 342 240 180 Output: Urine 1350 1100 Other: Voiding Method External Catheter External Catheter External Catheter - Labs CBC & Chem 7: 06/18/24 12:58 06/22/24 06:14 Labs: Abnormal Lab Results - Last 24 Hours (Table) 06/21/24 06/21/24 06/22/24 Range/Units 16:26 20:08 06:04 Sodium (137-145) mmol/L Potassium (3.5-5.1) mmol/L Chloride (98-107) mmol/L Carbon Dioxide (22-30) mmol/L BUN (9-20) mg/dL Creatinine (0.66-1.25) mg/dL Glucose (74-99) mg/dL POC Glucose (mg/dL) 258 H 345 H 235 H (70-110) mg/dL Total Bilirubin (0.2-1.3) mg/dL AST (17-59) U/L ALT (4-49) U/L Alkaline Phosphatase (38-126) U/L Total Protein (6.3-8.2) g/dL Albumin (3.5-5.0) g/dL 06/22/24 06/22/24 Range/Units 06:14 11:32 Sodium 131 L (137-145) mmol/L Potassium 3.4 L (3.5-5.1) mmol/L Chloride 82 L (98-107) mmol/L Carbon Dioxide 40 H (22-30) mmol/L BUN 99 H (9-20) mg/dL Creatinine 2.55 H (0.66-1.25) mg/dL Glucose 223 H (74-99) mg/dL POC Glucose (mg/dL) 393 H (70-110) mg/dL Total Bilirubin 2.3 H (0.2-1.3) mg/dL AST 86 H (17-59) U/L ALT 127 H (4-49) U/L Alkaline Phosphatase 180 H (38-126) U/L Total Protein 5.6 L (6.3-8.2) g/dL Albumin 3.2 L (3.5-5.0) g/dL
[2024-06-22 16:51] LABS: Glucose,Whole Blood 292 mg/dL (70-110)
[2024-06-22 20:15] LABS: Glucose,Whole Blood 217 mg/dL (70-110)
[2024-06-22] MEDS: ATORVASTATIN 40 MG TAB PO SCH (20:39)
[2024-06-23 05:58] LABS: Glucose,Whole Blood 242 mg/dL (70-110)
[2024-06-23 08:04] LABS: African American GFR (CKD) 23 (>60 ml/min/1.73 sqM); Chloride 81 mmol/L (98-107); Glucose 257 mg/dL (74-99); Non-African American GFR(CKD) 20 (>60 ml/min/1.73 sqM); Potassium 4.1 mmol/L (3.5-5.1); Sodium 134 mmol/L (137-145)
[2024-06-23 08:11] LABS: Anion Gap 12 mmol/L
[2024-06-23 08:53] LABS: Blood Urea Nitrogen 102 mg/dL (9-20)
[2024-06-23 08:54] LABS: Carbon Dioxide 41 mmol/L (22-30)
[2024-06-23] MEDS: METOPROLOL SUCCINATE (ER) 25 MG TAB.ER.24H PO SCH (09:34)
[2024-06-23 11:02] LABS: Glucose,Whole Blood 344 mg/dL (70-110)
[2024-06-23] MEDS: METOPROLOL SUCCINATE (ER) 25 MG TAB.ER.24H PO STA (11:52)
[2024-06-23] MEDS: AMIODARONE 200 MG TAB PO SCH (11:52)
--- NOTE | 2024-06-23 12:15 | P.PN ---
Subjective HISTORY OF PRESENT ILLNESS: This is a 78-year-old male patient of Dr. Juan Wellington with past medical history of paroxysmal atrial fibrillation, coronary artery disease on medical therapy, hypertension, hyperlipidemia, diabetes mellitus type 2, chronic kidney disease stage IIIb, family history of premature coronary artery disease. We have been asked to evaluate the patient for NSTEMI. Patient had a recent hospitalization 06/03 - 06/12 at which time he was seen by cardiology for persistent atrial fibrillation flat troponin secondary to hypoperfusion. Patient presented to the emergency center due to shortness of breath along with leg swelling. Symptoms have been going on for the past week. He has been taking his medications as directed at home. Blood pressure 107/74, heart rate 98, pulse ox 96% on 2 L nasal cannula. Patient has been started on Lasix drip and he is followed by nephrology. EKG: Atrial fibrillation with right bundle branch block Chest x-ray: Stable bilateral lower lobe infiltrate and small pleural effusion. Laboratory studies: WBC 17, hemoglobin 15.1. INR 1.5. Sodium 131, CO2 33, BUN 102, creatinine 2.21. Lactic acid 2.7. Troponin 0.47, 0.473, 0.468. proBNP 16,700. Home cardiac medications: Eliquis 5 mg twice daily, aspirin 81 mg daily, atorvastatin 80 mg daily, Farxiga 5 mg daily, fenofibrate 67 mg daily, Lasix 40 mg twice daily, Imdur 30 mg daily, lisinopril 10 mg at bedtime, magnesium oxide 800 mg twice daily, metoprolol succinate 50 mg daily. Lexiscan Cardiolite stress test performed 10/04/2023 in the office revealed negative stress test by EKG criteria. Abnormal nuclear scan showing evidence of inferior lateral myocardial infarction with LV systolic dysfunction and EF 40% without evidence of ischemia. Cardiac catheterization performed 09/02/2021 revealed moderate stenosis involving the right coronary artery. Echocardiogram performed 06/04/2024 revealed EF 25 %. Four-chamber enlargement. Mild mitral regurgitation. Mild to moderate tricuspid regurgitation, aortic valve sclerosis with calcification 06/22/2024 Patient examined this morning. Patient is sitting up in the chair. Patient c urrently denies chest pain or pressure. Reports shortness of breath is improving. He remains on IV Lasix and IV Diamox. Creatinine today 2.5. Patient's blood pressures have been low with a systolic in the 80s90s. 06/23/2024 Patient examined this morning at the bedside. Patient currently denies chest pain or pressure. He reports mild shortness of breath. He is maintained on IV diuretics per nephrology. Creatinine today 2.85. Patient is having runs of nonsustained ventricular tachycardia. Patient is asymptomatic with these episodes. Blood pressure is stable. Most recent reading 107/72. PHYSICAL EXAM: VITAL SIGNS: Reviewed. GENERAL: Well-developed in no acute distress. NECK: Supple. No JVD or thyromegaly LUNGS: Respirations even and unlabored. Lungs with expiratory wheezing noted throughout HEART: Irregular rate and rhythm. S1 and S2 heard. EXTREMITIES: Normal range of motion. No clubbing or cyanosis. Peripheral pulses intact. Bilateral lower extremity edema noted. ASSESSMENT: Chronically elevated troponin due to poor renal clearance, less likely ACS Acute on chronic heart failure with reduced EF Acute on chronic kidney disease Hypotension, improving Ischemic cardiomyopathy, EF 25% Nonsustained ventricular tachycardia Permanent atrial fibrillation Coronary artery disease Hypertension Hyperlipidemia Diabetes mellitus type 2 Family history of premature coronary artery disease PLAN: Continue current cardiac medications Continue diuresis per nephrology. Continue to monitor kidney function Continue to monitor blood pressure Increase metoprolol succinate to 50 mg daily Add oral amiodarone 400 mg twice a day Check magnesium level Continue telemetry monitoring Recommend eventual AICD implantation Further recommendations pending patient course Nurse practitioner note has been reviewed by physician. Signing provider agrees with the documented findings, assessment, and plan of care documented by CAMPGROUND CARETAKER as a scribe. Objective - Vital Signs Vital signs: Vital Signs Temp 98 F 06/23/24 10:52 Pulse 51 L 06/23/24 10:52 Resp 18 06/23/24 10:31 BP 107/72 06/23/24 10:52 Pulse Ox 98 06/23/24 10:52 FiO2 Intake & Output 06/22/24 06/23/24 06/23/24 18:59 06:59 18:59 Intake Total 678 10 Output Total 1400 1200 Balance -722 -1200 10 Weight 89.3 kg Intake: IV 20 10 Invasive Line 2 20 10 Oral 658 Output: Urine 1400 1200 Other: Voiding Method External Catheter External Catheter External Catheter - Labs CBC & Chem 7: 06/18/24 12:58 06/23/24 07:06 Labs: Abnormal Lab Results - Last 24 Hours (Table) 06/22/24 06/22/24 06/23/24 Range/Units 16:50 20:13 05:57 Sodium (137-145) mmol/L Chloride (98-107) mmol/L Carbon Dioxide (22-30) mmol/L BUN (9-20) mg/dL Creatinine (0.66-1.25) mg/dL Glucose (74-99) mg/dL POC Glucose (mg/dL) 292 H 217 H 242 H (70-110) mg/dL 06/23/24 06/23/24 Range/Units 07:06 10:59 Sodium 134 L (137-145) mmol/L Chloride 81 L (98-107) mmol/L Carbon Dioxide 41 H* (22-30) mmol/L BUN 102 H* (9-20) mg/dL Creatinine 2.85 H (0.66-1.25) mg/dL Glucose 257 H (74-99) mg/dL POC Glucose (mg/dL) 344 H (70-110) mg/dL
--- NOTE | 2024-06-23 12:41 | P.PN ---
Subjective patient is seen for follow-up for chronic kidney disease. No significant complaints today. Serum creatinine increase to 2.8 mg/dL today. BUN at 102. repeat chest x-ray from today is pending. No increase in shortness of breath Objective - Vital Signs Vital signs: Vital Signs Temp 98 F 06/23/24 10:52 Pulse 51 L 06/23/24 10:52 Resp 18 06/23/24 10:31 BP 107/72 06/23/24 10:52 Pulse Ox 98 06/23/24 10:52 FiO2 Intake & Output 06/22/24 06/23/24 06/23/24 18:59 06:59 18:59 Intake Total 678 10 Output Total 1400 1200 500 Balance -722 1200 490 Weight 89.3 kg 89.3 kg Intake: IV 20 10 Invasive Line 2 20 10 Oral 658 Output: Urine 1400 1200 500 Other: Voiding Method External Catheter External Catheter External Catheter - Exam patient is awake, comfortable, no acute distress. Examination of the heart S1 and S2 Examination of the lungs bilateral breath sounds are heard. Decreased breath sounds at the bases Abdomen is soft nontender Examination lower extremity shows edema 1+ bilaterally - Labs CBC & Chem 7: 06/18/24 12:58 06/23/24 07:06 Labs: Abnormal Lab Results - Last 24 Hours (Table) 06/22/24 06/22/24 06/23/24 Range/Units 16:50 20:13 05:57 Sodium (137-145) mmol/L Chloride (98-107) mmol/L Carbon Dioxide (22-30) mmol/L BUN (9-20) mg/dL Creatinine (0.66-1.25) mg/dL Glucose (74-99) mg/dL POC Glucose (mg/dL) 292 H 217 H 242 H (70-110) mg/dL 06/23/24 06/23/24 Range/Units 07:06 10:59 Sodium 134 L (137-145) mmol/L Chloride 81 L (98-107) mmol/L Carbon Dioxide 41 H* (22-30) mmol/L BUN 102 H* (9-20) mg/dL Creatinine 2.85 H (0.66-1.25) mg/dL Glucose 257 H (74-99) mg/dL POC Glucose (mg/dL) 344 H (70-110) mg/dL Assessment and Plan Assessment: 1. Chronic kidney disease stage IIIb secondary to diabetic kidney disease and cardiorenal syndrome. Baseline creatinine 2-2.3. GFR near baseline. Recent UA showed no proteinuria. Ultrasound from last month showed no hydronephrosis. 2. Acute on chronic systolic CHF ejection fraction of 20% with mild to moderate tricuspid regurgitation. 3. Volume overload. Improving with diuresis. 4. Coronary artery disease. 5. Diabetes mellitus. 6. Hypervolemic hyponatremia. Also component of hypertonicity from hyperglycemia. 7. Hypertension with chronic kidney disease. Stable. 8. Hypokalemia from diuresis. Magnesium normal. Replaced. Improved. 9. Metabolic alkalosis with respiratory compensation. 10. Acute kidney injury, mostly cardiorenal. Diuretics have been decreased. Blood pressure is on the lower side. Metoprolol will be decreased. Plan: decreased metoprolol due to low blood pressure and borderline heart rate. Decrease diuretics Repeat labs in a.m.
--- NOTE | 2024-06-23 14:04 | XR ---
EXAMINATION TYPE: XR chest 1V DATE OF EXAM: 06/23/2024 1:01 PM COMPARISON: Chest radiographs from 06/18/2024 CLINICAL INDICATION: Male, 79 years old with history of f/u chf; [facility] TECHNIQUE: XR chest 1V Frontal view of the chest. FINDINGS: Lungs/Pleura: No evidence of focal consolidation or pneumothorax. Blunting of the costophrenic angles is present. Pulmonary vascularity: Unremarkable. Heart/mediastinum: Cardiomediastinal silhouette is prominent in size. Musculoskeletal: No acute osseous pathology. IMPRESSION: Bilateral pleural effusions No evidence for acute heart failure. [facility], , 06/23/2024 2:01 PM
[2024-06-23] MEDS: ACETAMINOPHEN TAB 500 MG TAB PO PRN (14:27)
--- NOTE | 2024-06-23 14:55 | P.PN ---
Progress Note - Text Progress Note Date: 06/23/24 Chief Complaint: Increased swelling, decreased activity 78-year-old male, follows with PCP Dr. Baker with a past medical history of atrial fibrillation on anticoagulation with Eliquis, coronary disease stent replacement, hypertension, hyperlipidemia, diabetes type 2 non -insulin-dependent, CKD and prior history of CVAstatus post stent trouble remembering things and prior history of left lower extremity DVT, anxiety/depression. Chronic back pain does use a brace Patient presents with increasing swelling of the legs. Finding it difficult to walk. Decreased appetite. Recently diagnosed with UTI was given antibiotic. Does use a walker. Just weak and tired. Also short of breath. Some orthopnea. June 19: Patient seen this afternoon overflowing the ER. Remains on IV Lasix drip 10 mg an hour. Making good urine output. Some improvement in breathing. Eating some. June 20: Patient remains on IV Lasix drip. Urine output. Swelling and breathing better. Did tolerate some diet. June 21: Seen by cardiology earlier today. Switched over to IV bolus Lasix 40 every 12. About 6 L negative fluid balance. Still has significant edema. Up in recliner. Eating about 50%. June 22: Patient remains on IV Lasix 40 mg every 12. IV Diamox. Negative fluid balance. Still has significant lower extremity edema. Had BREAKFAST. Up in recliner. Tired. June 23: Up in a recliner. Edema slowly coming down. About 10 L negative fluid balance. IV Lasix discontinued per nephrology. Remains on IV Diamox. Chest x-ray done today shows improved aeration. Emery wrap lower extremity. Oral intake 25 to 50%.. Patient walked about 76 feet with a rolling walker. Active Medications Acetaminophen (Acetaminophen Tab 500 Mg Tab) 500 mg PO Q6HR PRN PRN Reason: Fever and/ or Pain Last Admin: 06/23/24 14:27 Dose: 500 mg Acetazolamide Sodium (Acetazolamide Sodium 500 Mg Vial) 250 mg IV Q12HR [facility] Last Admin: 06/23/24 09:35 Dose: 250 mg Albuterol Sulfate (Albuterol Nebulized 2.5 Mg/3 Ml) 2.5 mg INHALATION RT-Q4H PRN PRN Reason: Shortness Of Breath Last Admin: 06/19/24 02:01 Dose: 2.5 mg Albuterol/Ipratropium (Ipratropium-Albuterol 3 Ml Neb) 3 ml INHALATION RT-TID [facility] Last Admin: 06/23/24 13:02 Dose: Not Given Allopurinol (Allopurinol 100 Mg Tab) 100 mg PO DAILY [facility] Last Admin: 06/23/24 09:34 Dose: 100 mg Apixaban (Apixaban 2.5 Mg Tablet) 2.5 mg PO BID [facility]; Protocol Last Admin: 06/23/24 09:34 Dose: 2.5 mg Aspirin (Aspirin 81 Mg) 81 mg PO HS [facility] Last Admin: 06/22/24 20:39 Dose: 81 mg Atorvastatin Calcium (Atorvastatin 40 Mg Tab) 40 mg PO HS [facility] Last Admin: 06/22/24 20:39 Dose: 40 mg Benzocaine/Menthol (Benzocaine/Menthol Lozeng 1 Each Lozenge) 1 each MUCOUS MEM Q6HR PRN PRN Reason: Sore Throat Last Admin: 06/20/24 16:40 Dose: 1 each Budesonide/Formoterol Fumarate (Symbicort 160-4.5 Mcg Inhaler) 1 puff INHALATION RT-BID [facility] Last Admin: 06/23/24 07:42 Dose: 1 puff Buspirone HCl (Buspirone Hcl 10 Mg Tab) 10 mg PO BID [facility] Last Admin: 06/23/24 09:34 Dose: 10 mg Citalopram Hydrobromide (Citalopram Hydrobromide 20 Mg Tab) 20 mg PO [facility] Last Admin: 06/22/24 20:40 Dose: 20 mg Clotrimazole (Clotrimazole 1% Cream 30 Gm Tube) 1 applic TOPICAL BID PRN; Protocol PRN Reason: Skin Irritation Last Admin: 06/21/24 02:05 Dose: 1 applic Dapagliflozin (Dapagliflozin Propanediol 5 Mg Tablet) 5 mg PO DAILY [facility] Last Admin: 06/23/24 09:34 Dose: 5 mg Dextrose/Water (Dextrose 50% Syringe 50 Ml) 25 ml IVP PER PROTOCOL PRN; Protocol PRN Reason: Hypoglycemia Dextrose/Water (Dextrose 50% Syringe 50 Ml) 50 ml IVP PER PROTOCOL PRN; Protocol PRN Reason: Hypoglycemia Fluconazole (Fluconazole 100 Mg Tab) 100 mg PO DAILY [facility]; Protocol Last Admin: 06/23/24 09:34 Dose: 100 mg Insulin Aspart (Insulin Aspart (Novolog) 100 Unit/Ml Vial) 0 unit SQ ACHS [facility]; Protocol Last Admin: 06/23/24 11:52 Dose: 4 unit Isosorbide Mononitrate (Isosorbide Mononitrate Er 30 Mg Tab.Er.24h) 30 mg PO DAILY [facility] Last Admin: 06/23/24 09:34 Dose: 30 mg Magnesium Oxide (Magnesium Oxide 400 Mg Tab) 400 mg PO BID [facility] Last Admin: 06/23/24 09:33 Dose: 400 mg Metformin HCl (Metformin 500 Mg Tab) 500 mg PO [facility] Last Admin: 06/18/24 20:55 Dose: 500 mg Metoprolol Succinate (Metoprolol Succinate (Er) 50 Mg Tab.Er.24h) 50 mg PO DAILY [facility] Nitroglycerin (Nitroglycerin Sl Tabs 0.4 Mg Tab) 0.4 mg SUBLINGUAL Q5M PRN PRN Reason: Chest Pain Pantoprazole Sodium (Pantoprazole 40 Mg Tablet) 40 mg PO [facility] Last Admin: 06/22/24 20:39 Dose: 40 mg Senna (Sennosides 8.6 Mg Tab) 8.6 mg PO BID [facility] Last Admin: 06/23/24 09:34 Dose: 8.6 mg 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 . Denies any history of smoking or alcohol. Physical examination: VITAL SIGNS: 97.4, 58, 18, 102 x 79, 95% room air GENERAL: In a recliner, resting EYES: Pupils equal. Conjunctiva normal. HEENT: External appearance of nose and ears normal, oral cavity-white spots NECK: JVD not raised; masses not palpable. HEART: First and second heart sounds are normal; edema present LUNGS: Respiratory rate increased, decreased breath sounds, ABDOMEN: Soft, nontender, liver spleen not palpable, no masses palpable. PSYCH: Alert and oriented x3; mood and affect a bit tired MUSCULOSKELETAL:No Clubbing/cyanosis;muscles-grossly intact Investigation: June 23: Sodium 134 potassium 4.1 BUN 102 creatinine 2.85 June 22: Sodium 131 potassium 3.4 BUN 99 creatinine 2.55 bicarb 40 AST 86 ALT 127 June 21: Sodium 133 potassium 3.9 bicarb 41 BUN 100 creatinine 2.27 June 20: Potassium 3.3 BUN 100 creatinine 2.21 June 18: White count 17 hemoglobin 15.1 platelets 197 sodium 132 potassium 4.3 BUN 102 creatinine 2.3 AST 149 ALT 187 Troponin I 0.4, 0.4 proBNP [id number] EKG tracing personally reviewed by me-atrial fibrillation. Right bundle dannielle block pattern. ST-T wave changes. Chest x-ray film personally reviewed by me-cardiomegaly. Pulm edema. Pleural effusion Recent labs June 12: Potassium 4.2 BUN 85 creatinine 2.36 Renal ultrasound: No evidence of obstructive uropathy or renal calculi 2D echocardiogram: EF 20%: Mild to moderate TR. Assessment and plan: -Acute on chronic congestive heart failure from systolic dysfunction EF 20%. Ischemic cardiomyopathy: Improving Initially Lasix drip followed by bolus Lasix, now discontinued. Diamox IV Strict I's and O's. Fluid restriction. About 10 L negative fluid balance Follow labs closely Cardiology following -Metabolic alkalosis from volume contraction from diuresis Diamox IV -Oral candidiasis Diflucan # Acute kidney injury ATN secondary to hypotension-cardiorenal syndrome.: Slow worsening No obstructive uropathy. Nephrology following -Troponinemia is likely secondary to chronic kidney disease. No ACS #CKD stage IIIb:Likely nephrosclerosis, baseline creatinine 1.8-2 mg/dL. Follow creatinine #Persistent atrial fibrillation: Eliquis, Toprol-XL 50 mg a day Cardiology following -Hepatitis picture with intrahepatic cholestasis. Possibly with from CHF Hold Lipitor -Type II lactic acidosis. No evidence of infection -Troponinemia: From underlying CKD. No ACS #CAD with prior stent in November 2020: Beta-jairo, aspirin #Intermittent asthma: DuoNeb. #Depression: Celexa 20 mg nightly and BuSpar 10 mg twice daily #Essential hypertension: Beta-jairo #Hyperlipidemia: Lipitor 80 mg and fenofibrate 54 mg p.o. daily-held currently because of elevated liver enzymes -Full code IV Lasix discontinued. IV Diamox. Other medications to continue. Patient down over 70 feet and walking with walker. See orders in next 24 to 48 hours. Past Medical History Past Medical History: Atrial Fibrillation, Asthma, Coronary Artery Disease (CAD), Chest Pain / Angina, CVA/TIA, Diabetes Mellitus, Deep Vein Thrombosis (DVT), GERD/Reflux, Hyperlipidemia, Hypertension, Myocardial Infarction (CO), Osteoarthritis (OA), Renal Disease, Skin Disorder Additional Past Medical History / Comment(s): Hx CVA 4/21, had stent placed. Some trouble remembering things since. Hx left DVT. 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 Current vision problems and headaches. Psorasis. Gout. Last Myocardial Infarction Date:: 09/02 History of Any Multi-Drug Resistant Organisms: None Reported Past Surgical History: Heart Catheterization With Stent, Orthopedic Surgery Additional Past Surgical History / Comment(s): Left knee surgery, right shoulder surgery, bilateral cataract surgery. eye inplants Past Anesthesia/Blood Transfusion Reactions: No Reported Reaction, Motion Sickness Date of Last Stent Placement:: 11/2020 Past Psychological History: Anxiety, Depression Smoking Status: Never smoker Past Alcohol Use History: None Reported Past Drug Use History: None Reported
[2024-06-23 17:03] LABS: Glucose,Whole Blood 275 mg/dL (70-110)
[2024-06-23 20:21] LABS: Glucose,Whole Blood 328 mg/dL (70-110)
[2024-06-24 06:24] LABS: Glucose,Whole Blood 299 mg/dL (70-110)
[2024-06-24] MEDS: METOPROLOL SUCCINATE (ER) 50 MG TAB.ER.24H PO SCH (09:31)
[2024-06-24 10:55] LABS: African American GFR (CKD) 23 (>60 ml/min/1.73 sqM); Chloride 79 mmol/L (98-107); Glucose 477 mg/dL (74-99); Non-African American GFR(CKD) 20 (>60 ml/min/1.73 sqM); Potassium 3.6 mmol/L (3.5-5.1); Sodium 128 mmol/L (137-145)
[2024-06-24 11:01] LABS: Glucose,Whole Blood 486 mg/dL (70-110)
[2024-06-24 11:01] LABS: Anion Gap 11 mmol/L
[2024-06-24 11:14] LABS: Glucose,Whole Blood 448 mg/dL (70-110)
[2024-06-24 11:22] LABS: Blood Urea Nitrogen 102 mg/dL (9-20); Carbon Dioxide 38 mmol/L (22-30)
--- NOTE | 2024-06-24 11:50 | P.PN ---
Progress Note - Text Progress Note Date: 06/24/24 Chief Complaint: Increased swelling, decreased activity 78-year-old male, follows with PCP Dr. Baker with a past medical history of atrial fibrillation on anticoagulation with Eliquis, coronary disease stent replacement, hypertension, hyperlipidemia, diabetes type 2 non -insulin-dependent, CKD and prior history of CVAstatus post stent trouble remembering things and prior history of left lower extremity DVT, anxiety/depression. Chronic back pain does use a brace Patient presents with increasing swelling of the legs. Finding it difficult to walk. Decreased appetite. Recently diagnosed with UTI was given antibiotic. Does use a walker. Just weak and tired. Also short of breath. Some orthopnea. June 19: Patient seen this afternoon overflowing the ER. Remains on IV Lasix drip 10 mg an hour. Making good urine output. Some improvement in breathing. Eating some. June 20: Patient remains on IV Lasix drip. Urine output. Swelling and breathing better. Did tolerate some diet. June 21: Seen by cardiology earlier today. Switched over to IV bolus Lasix 40 every 12. About 6 L negative fluid balance. Still has significant edema. Up in recliner. Eating about 50%. June 22: Patient remains on IV Lasix 40 mg every 12. IV Diamox. Negative fluid balance. Still has significant lower extremity edema. Had BREAKFAST. Up in recliner. Tired. June 23: Up in a recliner. Edema slowly coming down. About 10 L negative fluid balance. IV Lasix discontinued per nephrology. Remains on IV Diamox. Chest x-ray done today shows improved aeration. Emery wrap lower extremity. Oral intake 25 to 50%.. Patient walked about 76 feet with a rolling walker. June 24: Up in recliner. Appetite much better-eating 100%. Remains in negative fluid balance. On IV Diamox. Accu-Cheks running high. Add Levemir 16 units daily Active Medications Acetaminophen (Acetaminophen Tab 500 Mg Tab) 500 mg PO Q6HR PRN PRN Reason: Fever and/ or Pain Last Admin: 06/23/24 14:27 Dose: 500 mg Acetazolamide Sodium (Acetazolamide Sodium 500 Mg Vial) 250 mg IV Q12HR [place] Last Admin: 06/24/24 09:31 Dose: 250 mg Albuterol Sulfate (Albuterol Nebulized 2.5 Mg/3 Ml) 2.5 mg INHALATION RT-Q4H PRN PRN Reason: Shortness Of Breath Last Admin: 06/24/24 04:58 Dose: 2.5 mg Albuterol/Ipratropium (Ipratropium-Albuterol 3 Ml Neb) 3 ml INHALATION RT-TID [facility] Last Admin: 06/24/24 08:50 Dose: Not Given Allopurinol (Allopurinol 100 Mg Tab) 100 mg PO DAILY [facility] Last Admin: 06/24/24 09:30 Dose: 100 mg Apixaban (Apixaban 2.5 Mg Tablet) 2.5 mg PO BID [facility]; Protocol Last Admin: 06/24/24 09:30 Dose: 2.5 mg Aspirin (Aspirin 81 Mg) 81 mg PO [facility] Last Admin: 06/23/24 20:46 Dose: 81 mg Atorvastatin Calcium (Atorvastatin 40 Mg Tab) 40 mg PO HS [facility] Last Admin: 06/23/24 20:46 Dose: 40 mg Benzocaine/Menthol (Benzocaine/Menthol Lozeng 1 Each Lozenge) 1 each MUCOUS MEM Q6HR PRN PRN Reason: Sore Throat Last Admin: 06/20/24 16:40 Dose: 1 each Budesonide/Formoterol Fumarate (Symbicort 160-4.5 Mcg Inhaler) 1 puff INHALATION RT-BID [facility] Last Admin: 06/24/24 08:50 Dose: Not Given Buspirone HCl (Buspirone Hcl 10 Mg Tab) 10 mg PO BID [facility] Last Admin: 06/24/24 09:30 Dose: 10 mg Citalopram Hydrobromide (Citalopram Hydrobromide 20 Mg Tab) 20 mg PO [facility] Last Admin: 06/23/24 20:46 Dose: 20 mg Clotrimazole (Clotrimazole 1% Cream 30 Gm Tube) 1 applic TOPICAL BID PRN; Protocol PRN Reason: Skin Irritation Last Admin: 06/21/24 02:05 Dose: 1 applic Dapagliflozin (Dapagliflozin Propanediol 5 Mg Tablet) 5 mg PO DAILY [facility] Last Admin: 06/24/24 09:30 Dose: 5 mg Dextrose/Water (Dextrose 50% Syringe 50 Ml) 25 ml IVP PER PROTOCOL PRN; Protocol PRN Reason: Hypoglycemia Dextrose/Water (Dextrose 50% Syringe 50 Ml) 50 ml IVP PER PROTOCOL PRN; Protocol PRN Reason: Hypoglycemia Fluconazole (Fluconazole 100 Mg Tab) 100 mg PO DAILY [facility]; Protocol Last Admin: 06/24/24 09:31 Dose: 100 mg Insulin Aspart (Insulin Aspart (Novolog) 100 Unit/Ml Vial) 0 unit SQ ACHS [facility]; Protocol Last Admin: 06/24/24 06:47 Dose: 3 unit Isosorbide Mononitrate (Isosorbide Mononitrate Er 30 Mg Tab.Er.24h) 30 mg PO DAILY [facility] Last Admin: 06/24/24 09:30 Dose: 30 mg Magnesium Oxide (Magnesium Oxide 400 Mg Tab) 400 mg PO BID [facility] Last Admin: 06/24/24 09:30 Dose: 400 mg Metformin HCl (Metformin 500 Mg Tab) 500 mg PO HS [facility] Last Admin: 06/18/24 20:55 Dose: 500 mg Metoprolol Succinate (Metoprolol Succinate (Er) 50 Mg Tab.Er.24h) 50 mg PO DAILY [facility] Last Admin: 06/24/24 09:31 Dose: 50 mg Nitroglycerin (Nitroglycerin Sl Tabs 0.4 Mg Tab) 0.4 mg SUBLINGUAL Q5M PRN PRN Reason: Chest Pain Pantoprazole Sodium (Pantoprazole 40 Mg Tablet) 40 mg PO [facility] Last Admin: 06/23/24 20:45 Dose: 40 mg Senna (Sennosides 8.6 Mg Tab) 8.6 mg PO BID [facility] Last Admin: 06/24/24 09:30 Dose: 8.6 mg 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 . Denies any history of smoking or alcohol. Physical examination: VITAL SIGNS: 97.6, 55, 18, 95/60, 97% room air GENERAL: In a recliner, resting EYES: Pupils equal. Conjunctiva normal. HEENT: External appearance of nose and ears normal, oral cavity-white spots NECK: JVD not raised; masses not palpable. HEART: First and second heart sounds are normal; edema coming down LUNGS: Respiratory rate normal decreased breath sounds, ABDOMEN: Soft, nontender, liver spleen not palpable, no masses palpable. PSYCH: Alert and oriented x3; mood and affect a bit tired MUSCULOSKELETAL:No Clubbing/cyanosis;muscles-grossly intact Investigation: June 24: Sodium 128 potassium 3.6 bicarb 38 BUN 102 creatinine 2.86 June 23: Sodium 134 potassium 4.1 BUN 102 creatinine 2.85 June 22: Sodium 131 potassium 3.4 BUN 99 creatinine 2.55 bicarb 40 AST 86 ALT 127 June 21: Sodium 133 potassium 3.9 bicarb 41 BUN 100 creatinine 2.27 June 20: Potassium 3.3 BUN 100 creatinine 2.21 June 18: White count 17 hemoglobin 15.1 platelets 197 sodium 132 potassium 4.3 BUN 102 creatinine 2.3 AST 149 ALT 187 Troponin I 0.4, 0.4 proBNP [id number] EKG tracing personally reviewed by me-atrial fibrillation. Right bundle dannielle block pattern. ST-T wave changes. Chest x-ray film personally reviewed by me-cardiomegaly. Pulm edema. Pleural effusion Recent labs June 12: Potassium 4.2 BUN 85 creatinine 2.36 Renal ultrasound: No evidence of obstructive uropathy or renal calculi 2D echocardiogram: EF 20%: Mild to moderate TR. Assessment and plan: -Acute on chronic congestive heart failure from systolic dysfunction EF 20%. Ischemic cardiomyopathy: Improving Initially Lasix drip followed by bolus Lasix, now discontinued. Diamox IV Strict I's and O's. Fluid restriction. About 10 L negative fluid balance Follow labs closely Cardiology following -Metabolic alkalosis from volume contraction from diuresis Diamox IV -Oral candidiasis Diflucan # Acute kidney injury ATN secondary to hypotension-cardiorenal syndrome.: Slow worsening No obstructive uropathy. Nephrology following -Troponinemia is likely secondary to chronic kidney disease. No ACS #CKD stage IIIb:Likely nephrosclerosis, baseline creatinine 1.8-2 mg/dL. Follow creatinine #Persistent atrial fibrillation: Eliquis, Toprol-XL 50 mg a day Cardiology following -Hepatitis picture with intrahepatic cholestasis. Possibly with from CHF Hold Lipitor -Diabetes mellitus type 2, uncontrolled with hyperglycemia On Farxiga. Metformin. Add Levemir 16 units daily. -Type II lactic acidosis. No evidence of infection -Troponinemia: From underlying CKD. No ACS #CAD with prior stent in November 2020: Beta-jairo, aspirin #Intermittent asthma: DuoNeb. #Depression: Celexa 20 mg nightly and BuSpar 10 mg twice daily #Essential hypertension: Beta-jairo #Hyperlipidemia: Lipitor 80 mg and fenofibrate 54 mg p.o. daily-held currently because of elevated liver enzymes -Full code Remains on IV Diamox. Add Levemir 16 units daily. Metformin 500 mg twice daily. Needs further diuresis. Past Medical History Past Medical History: Atrial Fibrillation, Asthma, Coronary Artery Disease (CAD), Chest Pain / Angina, CVA/TIA, Diabetes Mellitus, Deep Vein Thrombosis (DVT), GERD/Reflux, Hyperlipidemia, Hypertension, Myocardial Infarction ([place]), Osteoarthritis (OA), Renal Disease, Skin Disorder Additional Past Medical History / Comment(s): Hx CVA 11/30, had stent placed. Some trouble remembering things since. Hx left DVT. 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 Current vision problems and headaches. Psorasis. Gout. Last Myocardial Infarction Date:: 09/02 History of Any Multi-Drug Resistant Organisms: None Reported Past Surgical History: Heart Catheterization With Stent, Orthopedic Surgery Additional Past Surgical History / Comment(s): Left knee surgery, right shoulder surgery, bilateral cataract surgery. eye inplants Past Anesthesia/Blood Transfusion Reactions: No Reported Reaction, Motion Sickness Date of Last Stent Placement:: 11/2020 Past Psychological History: Anxiety, Depression Smoking Status: Never smoker Past Alcohol Use History: None Reported Past Drug Use History: None Reported
[2024-06-24] MEDS ORDERED: metFORMIN 500 MG TAB PO SCH ×2 (12:00→17:30)
--- NOTE | 2024-06-24 12:23 | P.PN ---
Subjective patient is seen for follow-up for chronic kidney disease. No significant complaints today. Serum creatinine staying at 2.8 mg/dL today. BUN at 102. Diuretics were discontinued yesterday. Urine output 1900 ML for 24 hours. No increase in shortness of breath Objective - Vital Signs Vital signs: Vital Signs Temp 97.6 F 06/24/24 10:55 Pulse 68 06/24/24 11:58 Resp 18 06/24/24 08:00 BP 95/60 06/24/24 10:55 Pulse Ox 97 06/24/24 10:55 FiO2 Intake & Output 06/23/24 06/24/24 06/24/24 18:59 06:59 18:59 Intake Total 1768 540 0 Output Total 1500 400 450 Balance 268 140 -450 Weight 89.3 kg 89.8 kg Intake: IV 20 Invasive Line 2 20 Oral 1748 540 0 Output: Urine 1500 400 450 Other: Voiding Method External Catheter External Catheter External Catheter - Exam patient is awake, comfortable, no acute distress. Examination of the heart S1 and S2 Examination of the lungs bilateral breath sounds are heard. Decreased breath sounds at the bases Abdomen is soft nontender Examination lower extremity shows edema 1+ bilaterally - Labs CBC & Chem 7: 06/18/24 12:58 06/24/24 11:17 Labs: Abnormal Lab Results - Last 24 Hours (Table) 06/23/24 06/23/24 06/24/24 Range/Units 17:02 20:19 06:23 Sodium (137-145) mmol/L Chloride (98-107) mmol/L Carbon Dioxide (22-30) mmol/L BUN (9-20) mg/dL Creatinine (0.66-1.25) mg/dL Glucose (74-99) mg/dL POC Glucose (mg/dL) 275 H 328 H 299 H (70-110) mg/dL 06/24/24 06/24/24 06/24/24 Range/Units 10:25 10:59 11:10 Sodium 128 L (137-145) mmol/L Chloride 79 L (98-107) mmol/L Carbon Dioxide 38 H (22-30) mmol/L BUN 102 H* (9-20) mg/dL Creatinine 2.86 H (0.66-1.25) mg/dL Glucose 477 H (74-99) mg/dL POC Glucose (mg/dL) 486 H 448 H (70-110) mg/dL 06/24/24 Range/Units 11:17 Sodium (137-145) mmol/L Chloride (98-107) mmol/L Carbon Dioxide (22-30) mmol/L BUN (9-20) mg/dL Creatinine (0.66-1.25) mg/dL Glucose 484 H (74-99) mg/dL POC Glucose (mg/dL) (70-110) mg/dL Assessment and Plan Assessment: 1. Chronic kidney disease stage IIIb secondary to diabetic kidney disease and cardiorenal syndrome. Baseline creatinine 2-2.3. GFR near baseline. Recent UA showed no proteinuria. Ultrasound from last month showed no hydronephrosis. 2. Acute on chronic systolic CHF ejection fraction of 20% with mild to moderate tricuspid regurgitation. 3. Volume overload. Improving with diuresis. 4. Coronary artery disease. 5. Diabetes mellitus. 6. Hypervolemic hyponatremia. Also component of hypertonicity from hyperglycemia. 7. Hypertension with chronic kidney disease. Stable. 8. Hypokalemia from diuresis. Magnesium normal. Replaced. Improved. 9. Metabolic alkalosis with respiratory compensation. 10. Acute kidney injury, mostly cardiorenal. Diuretics have been decreased. Blood pressure is on the lower side. Metoprolol will be decreased. Plan: decreased metoprolol due to low blood pressure and borderline heart rate. reevaluate for restarting diuretics in a.m. Repeat labs in a.m.
--- NOTE | 2024-06-24 12:55 | P.PN ---
Subjective HISTORY OF PRESENT ILLNESS: This is a 78-year-old male patient of Dr. Juan Wellington with past medical history of paroxysmal atrial fibrillation, coronary artery disease on medical therapy, hypertension, hyperlipidemia, diabetes mellitus type 2, chronic kidney disease stage IIIb, family history of premature coronary artery disease. We have been asked to evaluate the patient for NSTEMI. Patient had a recent hospitalization 06/03 - 06/12 at which time he was seen by cardiology for persistent atrial fibrillation flat troponin secondary to hypoperfusion. Patient presented to the emergency center due to shortness of breath along with leg swelling. Symptoms have been going on for the past week. He has been taking his medications as directed at home. Blood pressure 107/74, heart rate 98, pulse ox 96% on 2 L nasal cannula. Patient has been started on Lasix drip and he is followed by nephrology. EKG: Atrial fibrillation with right bundle branch block Chest x-ray: Stable bilateral lower lobe infiltrate and small pleural effusion. Laboratory studies: WBC 17, hemoglobin 15.1. INR 1.5. Sodium 131, CO2 33, BUN 102, creatinine 2.21. Lactic acid 2.7. Troponin 0.47, 0.473, 0.468. proBNP 16,700. Home cardiac medications: Eliquis 5 mg twice daily, aspirin 81 mg daily, atorvastatin 80 mg daily, Farxiga 5 mg daily, fenofibrate 67 mg daily, Lasix 40 mg twice daily, Imdur 30 mg daily, lisinopril 10 mg at bedtime, magnesium oxide 800 mg twice daily, metoprolol succinate 50 mg daily. Lexiscan Cardiolite stress test performed 10/04/2023 in the office revealed negative stress test by EKG criteria. Abnormal nuclear scan showing evidence of inferior lateral myocardial infarction with LV systolic dysfunction and EF 40% without evidence of ischemia. Cardiac catheterization performed 09/02/2021 revealed moderate stenosis involving the right coronary artery. Echocardiogram performed 06/04/2024 revealed EF 25 %. Four-chamber enlargement. Mild mitral regurgitation. Mild to moderate tricuspid regurgitation, aortic valve sclerosis with calcification 06/22/2024 Patient examined this morning. Patient is sitting up in the chair. Patient c urrently denies chest pain or pressure. Reports shortness of breath is improving. He remains on IV Lasix and IV Diamox. Creatinine today 2.5. Patient's blood pressures have been low with a systolic in the 80s90s. 06/23/2024 Patient examined this morning at the bedside. Patient currently denies chest pain or pressure. He reports mild shortness of breath. He is maintained on IV diuretics per nephrology. Creatinine today 2.85. Patient is having runs of nonsustained ventricular tachycardia. Patient is asymptomatic with these episodes. Blood pressure is stable. Most recent reading 107/72. Addendum entered and electronically signed by Sobia Yeager NP-C 06/23/24 14:16: Notified by patients nurse that family arrived and stated patient is unable to take amio. Apparently, he was placed on this recently for afib rvr and had multiple adverse effects. However, this was never documented in the EMR as an allergy. Patients nurse states that patient is now lethargic and has a headache. Will DC amio. 06/24/2024 Patient examined this morning the bedside. He is sitting in the chair. Patient currently denies chest pain or pressure. He continues to report shortness of breath. No further episodes of ventricular tachycardia. His beta-jairo was increased yesterday. Blood pressure stable. Most recent reading 95/60. PHYSICAL EXAM: VITAL SIGNS: Reviewed. GENERAL: Well-developed in no acute distress. NECK: Supple. No JVD or thyromegaly LUNGS: Respirations even and unlabored. Lungs diminished bilaterally. HEART: Irregular rate and rhythm. S1 and S2 heard. EXTREMITIES: Normal range of motion. No clubbing or cyanosis. Peripheral pulses intact. Bilateral lower extremity edema noted. ASSESSMENT: Chronically elevated troponin due to poor renal clearance, less likely ACS Acute on chronic heart failure with reduced EF Acute on chronic kidney disease Hypotension, improving Ischemic cardiomyopathy, EF 25% Nonsustained ventricular tachycardia Permanent atrial fibrillation Coronary artery disease Hypertension Hyperlipidemia Diabetes mellitus type 2 Family history of premature coronary artery disease PLAN: Continue current cardiac medications Continue to monitor kidney function Continue telemetry monitoring Continue current dose of metoprolol succinate 50 mg daily. Do not decrease dose due to patient having runs of ventricular tachycardia yesterday. Patient unable to tolerate amiodarone Recommend eventual AICD implantation Further recommendations pending patient course Nurse practitioner note has been reviewed by physician. Signing provider agrees with the documented findings, assessment, and plan of care documented by TEACHER as a scribe. Objective - Vital Signs Vital signs: Vital Signs Temp 97.6 F 06/24/24 10:55 Pulse 68 06/24/24 11:58 Resp 18 06/24/24 08:00 BP 95/60 06/24/24 10:55 Pulse Ox 97 06/24/24 10:55 FiO2 Intake & Output 06/23/24 06/24/24 06/24/24 18:59 06:59 18:59 Intake Total 1768 540 0 Output Total 1500 400 450 Balance 268 140 -450 Weight 89.3 kg 89.8 kg Intake: IV 20 Invasive Line 2 20 Oral 1748 540 0 Output: Urine 1500 400 450 Other: Voiding Method External Catheter External Catheter External Catheter - Labs CBC & Chem 7: 06/18/24 12:58 06/24/24 11:17 Labs: Abnormal Lab Results - Last 24 Hours (Table) 06/23/24 06/23/24 06/24/24 Range/Units 17:02 20:19 06:23 Sodium (137-145) mmol/L Chloride (98-107) mmol/L Carbon Dioxide (22-30) mmol/L BUN (9-20) mg/dL Creatinine (0.66-1.25) mg/dL Glucose (74-99) mg/dL POC Glucose (mg/dL) 275 H 328 H 299 H (70-110) mg/dL 06/24/24 06/24/24 06/24/24 Range/Units 10:25 10:59 11:10 Sodium 128 L (137-145) mmol/L Chloride 79 L (98-107) mmol/L Carbon Dioxide 38 H (22-30) mmol/L BUN 102 H* (9-20) mg/dL Creatinine 2.86 H (0.66-1.25) mg/dL Glucose 477 H (74-99) mg/dL POC Glucose (mg/dL) 486 H 448 H (70-110) mg/dL 06/24/24 Range/Units 11:17 Sodium (137-145) mmol/L Chloride (98-107) mmol/L Carbon Dioxide (22-30) mmol/L BUN (9-20) mg/dL Creatinine (0.66-1.25) mg/dL Glucose 484 H (74-99) mg/dL POC Glucose (mg/dL) (70-110) mg/dL
[2024-06-24] MEDS: glipiZIDE 10 MG TAB PO SCH (13:02)
[2024-06-24] MEDS: INSULIN DETEMIR (LEVEMIR) 100 UNIT/ML SYR SQ SCH (13:11)
[2024-06-24] MEDS: INSULIN ASPART (NovoLOG) 100 UNIT/ML VIAL SQ SCH (13:12)
[2024-06-24] MEDS ORDERED: ARTIFICIAL TEARS-HYPROMELLOSE DROPS 15 ML BTL BOTH EYES PRN (14:17)
[2024-06-24 16:09] LABS: Glucose,Whole Blood 282 mg/dL (70-110)
[2024-06-24 19:57] LABS: Glucose,Whole Blood 105 mg/dL (70-110)
[2024-06-25 06:18] LABS: Glucose,Whole Blood 78 mg/dL (70-110)
[2024-06-25 08:36] LABS: African American GFR (CKD) 21 (>60 ml/min/1.73 sqM); Calcium 9.3 mg/dL (8.4-10.2); Chloride 83 mmol/L (98-107); Glucose 83 mg/dL (74-99); Non-African American GFR(CKD) 18 (>60 ml/min/1.73 sqM); Potassium 3.7 mmol/L (3.5-5.1); Sodium 133 mmol/L (137-145)
[2024-06-25 08:43] LABS: Anion Gap 15 mmol/L; Carbon Dioxide 35 mmol/L (22-30)
[2024-06-25 08:46] LABS: Blood Urea Nitrogen 109 mg/dL (9-20)
--- NOTE | 2024-06-25 09:41 | XR ---
EXAMINATION TYPE: XR abdomen 2V DATE OF EXAM: 06/25/2024 8:58 AM COMPARISON: None CLINICAL INDICATION: Male, 79 years old with history of back/abdominal pain; [facility] TECHNIQUE: Two views of the abdomen were obtained. FINDINGS: Moderate amount stool throughout the colon. The bowel gas pattern is nonspecific without di lated loops of small or large bowel. There is no evidence for organomegaly or pneumoperitoneum. The osseous structures are intact. No abnormal calcifications are present. Fecal material and gas are de monstrated throughout the colon and rectum. IMPRESSION: Nonspecific bowel gas pattern without radiographic evidence for acute process. [facility], , 06/25/2024 9:38 AM
[2024-06-25 11:19] LABS: Basophils % (A) 0 %; Eosinophils # (A) 0.1 k/uL (0-0.7); Eosinophils % (A) 0 %; HCT 51.2 % (39.0-53.0); HGB 15.8 gm/dL (13.0-17.5); Hypochromasia Moderate; Lymphocytes % (A) 6 %; MCH 27.6 pg (25.0-35.0); MCHC 30.9 g/dL (31.0-37.0); MCV 89.3 fL (80.0-100.0); Mean Platelet Volume 8.6; Monocytes # (A) 0.7 k/uL (0-1.0); Monocytes % (A) 4 %; Neutrophils # (A) 14.8 k/uL (1.3-7.7); Neutrophils % (A) 88 %; Platelet Count 180 k/uL (150-450); RBC 5.74 m/uL (4.30-5.90); RDW 15.7 % (11.5-15.5); WBC 16.9 k/uL (3.8-10.6)
--- NOTE | 2024-06-25 11:49 | US ---
EXAMINATION TYPE: US kidneys/renal and bladder DATE OF EXAM: 06/25/2024 COMPARISON: US (06/08/24) CLINICAL INDICATION: Male, 79 years old with history of Back pain, kidney disease; pain TECHNIQUE: Grayscale imaging of the bilateral kidneys and urinary bladder: FINDINGS: EXAM MEASUREMENTS: Right Kidney: 9.9x5.4x5.8 cm Left Kidney: 9.8x5.8x5.5 cm Right Kidney: Dilation of the collecting system with cortical thinning. Left Kidney: Dilation of the collecting system with cortical thinning. Bladder: wnl Bilateral Jets seen: right only IMPRESSION: Mild bilateral hydronephrosis correlate for obstructive uropathy. Apical renal disease. [facility], , 06/25/2024 11:47 AM
[2024-06-25 11:52] LABS: Glucose,Whole Blood 155 mg/dL (70-110)
--- NOTE | 2024-06-25 12:15 | P.PN ---
Subjective patient is seen for follow-up for chronic kidney disease. No significant complaints today. Serum creatinine at 3.1 today. He has been off of diuretics for 2 days. Blood pressure remains on the lower side with occasional systolic in the 80s. Metoprolol was adjusted by cardiology due to runs of V. tach and patient is not able to tolerate amiodarone. Urine output 1250 ML for 24 hours. No increase in shortness of breath Objective - Vital Signs Vital signs: Vital Signs Temp 98.2 F 06/25/24 11:24 Pulse 66 06/25/24 12:07 Resp 18 06/25/24 11:24 BP 98/63 06/25/24 11:24 Pulse Ox 98 06/25/24 07:55 FiO2 Intake & Output 06/24/24 06/25/24 06/25/24 18:59 06:59 18:59 Intake Total 240 260 10 Output Total 950 300 Balance -710 -40 10 Weight 89.1 kg Intake: IV 20 10 Invasive Line 3 20 10 Oral 240 240 Output: Urine 950 300 Other: Voiding Method External Catheter External Catheter External Catheter - Exam patient is awake, comfortable, no acute distress. Examination of the heart S1 and S2 Examination of the lungs bilateral breath sounds are heard. Decreased breath sounds at the bases Abdomen is soft nontender Examination lower extremity shows edema 1+ bilaterally, stable - Labs CBC & Chem 7: 06/25/24 07:30 06/25/24 07:30 Labs: Abnormal Lab Results - Last 24 Hours (Table) 06/24/24 06/25/24 06/25/24 Range/Units 16:08 07:30 07:30 WBC 16.9 H (3.8-10.6) k/uL MCHC 30.9 L (31.0-37.0) g/dL RDW 15.7 H (11.5-15.5) % Neutrophils # 14.8 H (1.3-7.7) k/uL Sodium 133 L (137-145) mmol/L Chloride 83 L (98-107) mmol/L Carbon Dioxide 35 H (22-30) mmol/L BUN 109 H* (9-20) mg/dL Creatinine 3.13 H (0.66-1.25) mg/dL POC Glucose (mg/dL) 282 H (70-110) mg/dL 11/14/24 Range/Units 11:50 WBC (3.8-10.6) k/uL MCHC (31.0-37.0) g/dL RDW (11.5-15.5) % Neutrophils # (1.3-7.7) k/uL Sodium (137-145) mmol/L Chloride (98-107) mmol/L Carbon Dioxide (22-30) mmol/L BUN (9-20) mg/dL Creatinine (0.66-1.25) mg/dL POC Glucose (mg/dL) 155 H (70-110) mg/dL Assessment and Plan Assessment: 1. Chronic kidney disease stage IIIb secondary to diabetic kidney disease and cardiorenal syndrome. Baseline creatinine 2-2.3. GFR near baseline. Recent UA showed no proteinuria. Ultrasound from last month showed no hydronephrosis. 2. Acute on chronic systolic CHF ejection fraction of 20% with mild to moderate tricuspid regurgitation. 3. Volume overload. Improving with diuresis. 4. Coronary artery disease. 5. Diabetes mellitus. 6. Hypervolemic hyponatremia. Also component of hypertonicity from hyperglycemia. 7. Hypertension with chronic kidney disease. Stable. 8. Hypokalemia from diuresis. Magnesium normal. Replaced. Improved. 9. Metabolic alkalosis with respiratory compensation. 10. Acute kidney injury, mostly cardiorenal. Diuretics are on hold. Blood pressure is on the lower side. Plan: continue off of diuretics. Check ultrasound of the kidneys as patient states that he feels like he has a kidney stone Repeat labs in a.m. May need to hold farxiga.
--- NOTE | 2024-06-25 12:51 | P.PN ---
Subjective HISTORY OF PRESENT ILLNESS: This is a 78-year-old male patient of Dr. Juan Wellington with past medical history of paroxysmal atrial fibrillation, coronary artery disease on medical therapy, hypertension, hyperlipidemia, diabetes mellitus type 2, chronic kidney disease stage IIIb, family history of premature coronary artery disease. We have been asked to evaluate the patient for NSTEMI. Patient had a recent hospitalization 06/03 - 06/12 at which time he was seen by cardiology for persistent atrial fibrillation flat troponin secondary to hypoperfusion. Patient presented to the emergency center due to shortness of breath along with leg swelling. Symptoms have been going on for the past week. He has been taking his medications as directed at home. Blood pressure 107/74, heart rate 98, pulse ox 96% on 2 L nasal cannula. Patient has been started on Lasix drip and he is followed by nephrology. EKG: Atrial fibrillation with right bundle branch block Chest x-ray: Stable bilateral lower lobe infiltrate and small pleural effusion. Laboratory studies: WBC 17, hemoglobin 15.1. INR 1.5. Sodium 131, CO2 33, BUN 102, creatinine 2.21. Lactic acid 2.7. Troponin 0.47, 0.473, 0.468. proBNP 16,700. Home cardiac medications: Eliquis 5 mg twice daily, aspirin 81 mg daily, atorvastatin 80 mg daily, Farxiga 5 mg daily, fenofibrate 67 mg daily, Lasix 40 mg twice daily, Imdur 30 mg daily, lisinopril 10 mg at bedtime, magnesium oxide 800 mg twice daily, metoprolol succinate 50 mg daily. Lexiscan Cardiolite stress test performed 10/04/2023 in the office revealed negative stress test by EKG criteria. Abnormal nuclear scan showing evidence of inferior lateral myocardial infarction with LV systolic dysfunction and EF 40% without evidence of ischemia. Cardiac catheterization performed 09/02/2021 revealed moderate stenosis involving the right coronary artery. Echocardiogram performed 06/04/2024 revealed EF 25 %. Four-chamber enlargement. Mild mitral regurgitation. Mild to moderate tricuspid regurgitation, aortic valve sclerosis with calcification 06/22/2024 Patient examined this morning. Patient is sitting up in the chair. Patient c urrently denies chest pain or pressure. Reports shortness of breath is improving. He remains on IV Lasix and IV Diamox. Creatinine today 2.5. Patient's blood pressures have been low with a systolic in the 80s90s. 06/23/2024 Patient examined this morning at the bedside. Patient currently denies chest pain or pressure. He reports mild shortness of breath. He is maintained on IV diuretics per nephrology. Creatinine today 2.85. Patient is having runs of nonsustained ventricular tachycardia. Patient is asymptomatic with these episodes. Blood pressure is stable. Most recent reading 107/72. Addendum entered and electronically signed by Sobia Yeager NP-C 06/23/24 14:16: Notified by patients nurse that family arrived and stated patient is unable to take amio. Apparently, he was placed on this recently for afib rvr and had multiple adverse effects. However, this was never documented in the EMR as an allergy. Patients nurse states that patient is now lethargic and has a headache. Will DC amio. 06/24/2024 Patient examined this morning the bedside. He is sitting in the chair. Patient currently denies chest pain or pressure. He continues to report shortness of breath. No further episodes of ventricular tachycardia. His beta-jairo was increased yesterday. Blood pressure stable. Most recent reading 95/60. 06/25/2024 Patient examined this morning at the bedside. Patient currently denies chest pain or pressure. He reports improvement in his shortness of breath. Creatinine today 3.13. Vital signs are stable. No further episodes of ventricular tachycardia. PHYSICAL EXAM: VITAL SIGNS: Reviewed. GENERAL: Well-developed in no acute distress. NECK: Supple. No JVD or thyromegaly LUNGS: Respirations even and unlabored. Lungs diminished bilaterally. HEART: Irregular rate and rhythm. S1 and S2 heard. EXTREMITIES: Normal range of motion. No clubbing or cyanosis. Peripheral pulses intact. Bilateral lower extremity edema noted. ASSESSMENT: Chronically elevated troponin due to poor renal clearance, less likely ACS Acute on chronic heart failure with reduced EF Acute on chronic kidney disease Hypotension, improving Ischemic cardiomyopathy, EF 25% Nonsustained ventricular tachycardia Permanent atrial fibrillation Coronary artery disease Hypertension Hyperlipidemia Diabetes mellitus type 2 Family history of premature coronary artery disease PLAN: Continue current cardiac medications Continue to monitor kidney function Continue telemetry monitoring Continue current dose of metoprolol succinate 50 mg daily. Do not decrease dose due to patient having runs of ventricular tachycardia yesterday. Patient unable to tolerate amiodarone Recommend eventual AICD implantation Further recommendations pending patient course Nurse practitioner note has been reviewed by physician. Signing provider agrees with the documented findings, assessment, and plan of care documented by [employer] SUPERVISOR as a scribe. Objective - Vital Signs Vital signs: Vital Signs Temp 98.2 F 06/25/24 11:24 Pulse 68 06/25/24 12:18 Resp 18 06/25/24 11:24 BP 98/63 06/25/24 11:24 Pulse Ox 98 06/25/24 07:55 FiO2 Intake & Output 06/24/24 06/25/24 06/25/24 18:59 06:59 18:59 Intake Total 240 260 10 Output Total 950 300 Balance -710 -40 10 Weight 89.1 kg Intake: IV 20 10 Invasive Line 3 20 10 Oral 240 240 Output: Urine 950 300 Other: Voiding Method External Catheter External Catheter External Catheter - Labs CBC & Chem 7: 06/25/24 07:30 06/25/24 07:30 Labs: Abnormal Lab Results - Last 24 Hours (Table) 06/24/24 06/25/24 06/25/24 Range/Units 16:08 07:30 07:30 WBC 16.9 H (3.8-10.6) k/uL MCHC 30.9 L (31.0-37.0) g/dL RDW 15.7 H (11.5-15.5) % Neutrophils # 14.8 H (1.3-7.7) k/uL Sodium 133 L (137-145) mmol/L Chloride 83 L (98-107) mmol/L Carbon Dioxide 35 H (22-30) mmol/L BUN 109 H* (9-20) mg/dL Creatinine 3.13 H (0.66-1.25) mg/dL POC Glucose (mg/dL) 282 H (70-110) mg/dL 06/25/24 Range/Units 11:50 WBC (3.8-10.6) k/uL MCHC (31.0-37.0) g/dL RDW (11.5-15.5) % Neutrophils # (1.3-7.7) k/uL Sodium (137-145) mmol/L Chloride (98-107) mmol/L Carbon Dioxide (22-30) mmol/L BUN (9-20) mg/dL Creatinine (0.66-1.25) mg/dL POC Glucose (mg/dL) 155 H (70-110) mg/dL
[2024-06-25 16:06] LABS: Glucose,Whole Blood 140 mg/dL (70-110)
[2024-06-25] MEDS: TAMSULOSIN 0.4 MG CAP.ER.24H PO SCH (17:32)
--- NOTE | 2024-06-25 17:33 | P.PN ---
Progress Note - Text Progress Note Date: 06/25/24 Chief Complaint: Increased swelling, decreased activity 78-year-old male, follows with PCP Dr. Baker with a past medical history of atrial fibrillation on anticoagulation with Eliquis, coronary disease stent replacement, hypertension, hyperlipidemia, diabetes type 2 non -insulin-dependent, CKD and prior history of CVAstatus post stent trouble remembering things and prior history of left lower extremity DVT, anxiety/depression. Chronic back pain does use a brace Patient presents with increasing swelling of the legs. Finding it difficult to walk. Decreased appetite. Recently diagnosed with UTI was given antibiotic. Does use a walker. Just weak and tired. Also short of breath. Some orthopnea. June 19: Patient seen this afternoon overflowing the ER. Remains on IV Lasix drip 10 mg an hour. Making good urine output. Some improvement in breathing. Eating some. June 20: Patient remains on IV Lasix drip. Urine output. Swelling and breathing better. Did tolerate some diet. June 21: Seen by cardiology earlier today. Switched over to IV bolus Lasix 40 every 12. About 6 L negative fluid balance. Still has significant edema. Up in recliner. Eating about 50%. June 22: Patient remains on IV Lasix 40 mg every 12. IV Diamox. Negative fluid balance. Still has significant lower extremity edema. Had BREAKFAST. Up in recliner. Tired. June 23: Up in a recliner. Edema slowly coming down. About 10 L negative fluid balance. IV Lasix discontinued per nephrology. Remains on IV Diamox. Chest x-ray done today shows improved aeration. Emery wrap lower extremity. Oral intake 25 to 50%.. Patient walked about 76 feet with a rolling walker. June 24: Up in recliner. Appetite much better-eating 100%. Remains in negative fluid balance. On IV Diamox. Accu-Cheks running high. Add Levemir 16 units daily June 25: Patient blood pressure has been running on the lower side. Sometime in the 80s. Off diuretics for couple of days. Had short runs of V. tach. Which was put on Toprol-XL. By cardiology. Received Toprol-XL this afternoon. Decreased appetite. Had some abdominal pain earlier today. Abdominal x-ray unremarkable. Renal ultrasound shows mild bilateral hydronephrosis. Bilateral some shrinkage of the kidney. Further increase in creatinine. Being followed by cardiology and nephrology. Active Medications Acetaminophen (Acetaminophen Tab 500 Mg Tab) 500 mg PO Q6HR PRN PRN Reason: Fever and/ or Pain Last Admin: 06/25/24 08:31 Dose: 500 mg Acetazolamide Sodium (Acetazolamide Sodium 500 Mg Vial) 250 mg IV Q12HR [facility] Last Admin: 06/25/24 17:12 Dose: Not Given Albuterol Sulfate (Albuterol Nebulized 2.5 Mg/3 Ml) 2.5 mg INHALATION RT-Q4H PRN PRN Reason: Shortness Of Breath Last Admin: 06/24/24 04:58 Dose: 2.5 mg Albuterol/Ipratropium (Ipratropium-Albuterol 3 Ml Neb) 3 ml INHALATION RT-TID [facility] Last Admin: 06/25/24 12:05 Dose: 3 ml Allopurinol (Allopurinol 100 Mg Tab) 100 mg PO DAILY [facility] Last Admin: 06/25/24 09:46 Dose: 100 mg Apixaban (Apixaban 2.5 Mg Tablet) 2.5 mg PO BID [facility]; Protocol Last Admin: 06/25/24 09:46 Dose: 2.5 mg Artificial Tears (Artificial Tears-Hypromellose Drops 15 Ml Btl) 2 drops BOTH EYES TID PRN PRN Reason: Dry Eye(s) Aspirin (Aspirin 81 Mg) 81 mg PO [facility] Last Admin: 06/24/24 21:14 Dose: 81 mg Atorvastatin Calcium (Atorvastatin 40 Mg Tab) 40 mg PO [facility] Last Admin: 06/24/24 21:14 Dose: 40 mg Benzocaine/Menthol (Benzocaine/Menthol Lozeng 1 Each Lozenge) 1 each MUCOUS MEM Q6HR PRN PRN Reason: Sore Throat Last Admin: 06/20/24 16:40 Dose: 1 each Budesonide/Formoterol Fumarate (Symbicort 160-4.5 Mcg Inhaler) 1 puff INHALATION RT-BID [facility] Last Admin: 06/25/24 07:52 Dose: 1 puff Buspirone HCl (Buspirone Hcl 10 Mg Tab) 10 mg PO BID [facility] Last Admin: 06/25/24 09:46 Dose: 10 mg Citalopram Hydrobromide (Citalopram Hydrobromide 20 Mg Tab) 20 mg PO [facility] Last Admin: 06/24/24 21:15 Dose: 20 mg Clotrimazole (Clotrimazole 1% Cream 30 Gm Tube) 1 applic TOPICAL BID PRN; Pr otocol PRN Reason: Skin Irritation Last Admin: 06/21/24 02:05 Dose: 1 applic Dapagliflozin (Dapagliflozin Propanediol 5 Mg Tablet) 5 mg PO DAILY [facility] Last Admin: 06/25/24 09:46 Dose: 5 mg Dextrose/Water (Dextrose 50% Syringe 50 Ml) 25 ml IVP PER PROTOCOL PRN; Protocol PRN Reason: Hypoglycemia Dextrose/Water (Dextrose 50% Syringe 50 Ml) 50 ml IVP PER PROTOCOL PRN; Protocol PRN Reason: Hypoglycemia Fluconazole (Fluconazole 100 Mg Tab) 100 mg PO DAILY [facility]; Protocol Last Admin: 06/25/24 09:46 Dose: 100 mg Glipizide (Glipizide 10 Mg Tab) 10 mg PO AC-BID [facility] Last Admin: 06/25/24 06:37 Dose: 10 mg Insulin Aspart (Insulin Aspart (Novolog) 100 Unit/Ml Vial) 0 unit SQ ACHS [facility]; Protocol Last Admin: 06/25/24 17:13 Dose: Not Given Insulin Aspart (Insulin Aspart (Novolog) 100 Unit/Ml Vial) 4 unit SQ AC-TID [facility] Last Admin: 06/25/24 17:13 Dose: Not Given Insulin Detemir (Insulin Detemir (Levemir) 100 Unit/Ml Syr) 16 unit SQ DAILY@0700 [facility] Last Admin: 06/25/24 06:36 Dose: 16 unit Isosorbide Mononitrate (Isosorbide Mononitrate Er 30 Mg Tab.Er.24h) 30 mg PO DAILY [facility] Last Admin: 06/25/24 09:47 Dose: Not Given Magnesium Oxide (Magnesium Oxide 400 Mg Tab) 400 mg PO BID [facility] Last Admin: 06/25/24 09:46 Dose: 400 mg Metoprolol Succinate (Metoprolol Succinate (Er) 50 Mg Tab.Er.24h) 50 mg PO DAILY [facility] Last Admin: 06/25/24 12:22 Dose: 50 mg Nitroglycerin (Nitroglycerin Sl Tabs 0.4 Mg Tab) 0.4 mg SUBLINGUAL Q5M PRN PRN Reason: Chest Pain Pantoprazole Sodium (Pantoprazole 40 Mg Tablet) 40 mg PO [facility] Last Admin: 06/24/24 21:15 Dose: 40 mg Senna (Sennosides 8.6 Mg Tab) 8.6 mg PO BID [facility] Last Admin: 06/25/24 09:47 Dose: 8.6 mg Tamsulosin HCl (Tamsulosin 0.4 Mg Cap.Er.24h) 0.4 mg PO PC-SUPPER [facility] 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 . Denies any history of smoking or alcohol. Physical examination: VITAL SIGNS: 98.3, 63, 17, 102/57, 95% room air GENERAL: In a recliner, a bit tired EYES: Pupils equal. Conjunctiva normal. HEENT: External appearance of nose and ears normal, oral cavity-white spots NECK: JVD not raised; masses not palpable. HEART: First and second heart sounds are normal; edema decreased LUNGS: Respiratory rate normal decreased breath sounds, ABDOMEN: Soft, nontender, liver spleen not palpable, no masses palpable. PSYCH: Alert and oriented x3; mood and affect a bit tired MUSCULOSKELETAL:No Clubbing/cyanosis;muscles-grossly intact Investigation: June 25: Sodium 133 potassium 3.7 bicarb 35 BUN 109 creatinine 3.13 white count 16.9 hemoglobin 15.8 platelets 180 June 24: Sodium 128 potassium 3.6 bicarb 38 BUN 102 creatinine 2.86 June 23: Sodium 134 potassium 4.1 BUN 102 creatinine 2.85 June 22: Sodium 131 potassium 3.4 BUN 99 creatinine 2.55 bicarb 40 AST 86 ALT 127 June 21: Sodium 133 potassium 3.9 bicarb 41 BUN 100 creatinine 2.27 June 20: Potassium 3.3 BUN 100 creatinine 2.21 June 18: White count 17 hemoglobin 15.1 platelets 197 sodium 132 potassium 4.3 BUN 102 creatinine 2.3 AST 149 ALT 187 Troponin I 0.4, 0.4 proBNP 03231 EKG tracing personally reviewed by me-atrial fibrillation. Right bundle dannielle block pattern. ST-T wave changes. Chest x-ray film personally reviewed by me-cardiomegaly. Pulm edema. Pleural effusion Recent labs June 12: Potassium 4.2 BUN 85 creatinine 2.36 Renal ultrasound: No evidence of obstructive uropathy or renal calculi 2D echocardiogram: EF 20%: Mild to moderate TR. Assessment and plan: -Acute on chronic congestive heart failure from systolic dysfunction EF 20%. Ischemic cardiomyopathy: Improving Initially Lasix drip followed by bolus Lasix,-discontinued. Diamox IV Strict I's and O's. Fluid restriction. Over 10 L negative fluid balance Follow labs closely Cardiology following -Metabolic alkalosis from volume contraction from diuresis Diamox IV -Oral candidiasis Diflucan # Acute kidney injury ATN secondary to hypotension-cardiorenal syndrome.: Slow worsening No obstructive uropathy. Nephrology following -Troponinemia is likely secondary to chronic kidney disease. No ACS #CKD stage IIIb:Likely nephrosclerosis, baseline creatinine 1.8-2 mg/dL. Follow creatinine #Persistent atrial fibrillation: Eliquis, Toprol-XL 50 mg a day Cardiology following -Run of V. tach Toprol -Hepatitis picture with intrahepatic cholestasis. Possibly with from CHF Hold Lipitor -Diabetes mellitus type 2, uncontrolled with hyperglycemia On Farxiga. . Add Levemir 16 units daily. -Type II lactic acidosis. No evidence of infection -Troponinemia: From underlying CKD. No ACS #CAD with prior stent in November 2020: Beta-jairo, aspirin #Intermittent asthma: DuoNeb. #Depression: Celexa 20 mg nightly and BuSpar 10 mg twice daily #Essential hypertension: Beta-jairo #Hyperlipidemia: Lipitor 80 mg and fenofibrate 54 mg p.o. daily-held currently because of elevated liver enzymes IV Diamox. Blood pressure running a bit on the lower side. Toprol-XL per cardio. Follow with nephrology. Past Medical History Past Medical History: Atrial Fibrillation, Asthma, Coronary Artery Disease (CAD), Chest Pain / Angina, CVA/TIA, Diabetes Mellitus, Deep Vein Thrombosis (DVT), GERD/Reflux, Hyperlipidemia, Hypertension, Myocardial Infarction (DE), O steoarthritis (OA), Renal Disease, Skin Disorder Additional Past Medical History / Comment(s): Hx CVA 11/30, had stent placed. Some trouble remembering things since. Hx left DVT. 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 Current vision problems and headaches. Psorasis. Gout. Last Myocardial Infarction Date:: 09/02 History of Any Multi-Drug Resistant Organisms: None Reported Past Surgical History: Heart Catheterization With Stent, Orthopedic Surgery Additional Past Surgical History / Comment(s): Left knee surgery, right shoulder surgery, bilateral cataract surgery. eye inplants Past Anesthesia/Blood Transfusion Reactions: No Reported Reaction, Motion Sickness Date of Last Stent Placement:: 11/2020 Past Psychological History: Anxiety, Depression Smoking Status: Never smoker Past Alcohol Use History: None Reported Past Drug Use History: None Reported
[2024-06-25 20:03] LABS: Glucose,Whole Blood 110 mg/dL (70-110)
[2024-06-26 06:17] LABS: Glucose,Whole Blood 61 mg/dL (70-110)
[2024-06-26 06:17] LABS: Glucose,Whole Blood 58 mg/dL (70-110)
[2024-06-26 06:37] LABS: Glucose,Whole Blood 130 mg/dL (70-110)
[2024-06-26 07:28] LABS: Basophils % (A) 0 %; Eosinophils # (A) 0.1 k/uL (0-0.7); Eosinophils % (A) 0 %; HCT 47.6 % (39.0-53.0); HGB 14.9 gm/dL (13.0-17.5); Hypochromasia Slight; Lymphocytes # (A) 0.7 k/uL (1.0-4.8); Lymphocytes % (A) 5 %; MCH 27.4 pg (25.0-35.0); MCHC 31.3 g/dL (31.0-37.0); MCV 87.5 fL (80.0-100.0); Mean Platelet Volume 8.3; Monocytes # (A) 0.6 k/uL (0-1.0); Monocytes % (A) 5 %; Neutrophils # (A) 12.4 k/uL (1.3-7.7); Neutrophils % (A) 89 %; Platelet Count 143 k/uL (150-450); RBC 5.44 m/uL (4.30-5.90); RDW 15.6 % (11.5-15.5)
[2024-06-26 08:28] LABS: ALT 87 U/L (4-49); AST 108 U/L (17-59); African American GFR (CKD) 26 (>60 ml/min/1.73 sqM); Albumin 3.1 g/dL (3.5-5.0); Alkaline Phosphatase 141 U/L (38-126); Anion Gap 4 mmol/L; Blood Urea Nitrogen 100 mg/dL (9-20); Calcium 8.9 mg/dL (8.4-10.2); Carbon Dioxide 38 mmol/L (22-30); Chloride 88 mmol/L (98-107); Glucose 75 mg/dL (74-99); Non-African American GFR(CKD) 23 (>60 ml/min/1.73 sqM); Potassium 3.1 mmol/L (3.5-5.1); Sodium 130 mmol/L (137-145); Total Bilirubin 1.6 mg/dL (0.2-1.3); Total Protein 5.7 g/dL (6.3-8.2)
[2024-06-26] MEDS: POTASSIUM CHLORIDE ER 20 MEQ TAB.ER PO SCH (10:22)
--- NOTE | 2024-06-26 11:01 | P.PN ---
Subjective patient is seen for follow-up for chronic kidney disease. No significant complaints today. Diuretics are on hold as renal function had deteriorated over the last 2 days however ultrasound done yesterday showed mild bilateral hydronephrosis and Lindo catheter was placed. It appears that 1000 mL of urine was obtained over the 8 hour shift. Serum creatinine has improved to 2.59 today. No complaints of chest pain or shortness of breath. Objective - Vital Signs Vital signs: Vital Signs Temp 97.5 F L 06/26/24 07:42 Pulse 60 06/26/24 09:41 Resp 14 06/26/24 07:42 BP 103/58 06/26/24 07:42 Pulse Ox 98 06/26/24 09:24 FiO2 Intake & Output 06/25/24 06/26/24 06/26/24 18:59 06:59 18:59 Intake Total 560 20 Output Total 1800 700 Balance -1240 -680 Weight 89.1 kg 89.5 kg Intake: IV 20 20 Invasive Line 3 20 20 Oral 540 Output: Urine 1800 700 Other: Voiding Method Indwelling Catheter Indwelling Catheter - Exam patient is awake, comfortable, no acute distress. Examination of the heart S1 and S2 Examination of the lungs bilateral breath sounds are heard. Decreased breath sounds at the bases Abdomen is soft nontender Examination lower extremity shows edema trace bilaterally, stable - Labs CBC & Chem 7: 06/26/24 06:45 06/26/24 06:45 Labs: Abnormal Lab Results - Last 24 Hours (Table) 06/25/24 06/25/24 06/25/24 Range/Units 07:30 11:50 16:03 WBC 16.9 H (3.8-10.6) k/uL MCHC 30.9 L (31.0-37.0) g/dL RDW 15.7 H (11.5-15.5) % Plt Count (150-450) k/uL Neutrophils # 14.8 H (1.3-7.7) k/uL Lymphocytes # (1.0-4.8) k/uL Sodium (137-145) mmol/L Potassium (3.5-5.1) mmol/L Chloride (98-107) mmol/L Carbon Dioxide (22-30) mmol/L BUN (9-20) mg/dL Creatinine (0.66-1.25) mg/dL POC Glucose (mg/dL) 155 H 140 H (70-110) mg/dL Magnesium (1.6-2.3) mg/dL Total Bilirubin (0.2-1.3) mg/dL AST (17-59) U/L ALT (4-49) U/L Alkaline Phosphatase (38-126) U/L Total Protein (6.3-8.2) g/dL Albumin (3.5-5.0) g/dL 06/26/24 06/26/24 06/26/24 Range/Units 05:39 05:58 06:13 WBC (3.8-10.6) k/uL MCHC (31.0-37.0) g/dL RDW (11.5-15.5) % Plt Count (150-450) k/uL Neutrophils # (1.3-7.7) k/uL Lymphocytes # (1.0-4.8) k/uL Sodium (137-145) mmol/L Potassium (3.5-5.1) mmol/L Chloride (98-107) mmol/L Carbon Dioxide (22-30) mmol/L BUN (9-20) mg/dL Creatinine (0.66-1.25) mg/dL POC Glucose (mg/dL) 58 L 61 L (70-110) mg/dL Magnesium 2.4 H (1.6-2.3) mg/dL Total Bilirubin (0.2-1.3) mg/dL AST (17-59) U/L ALT (4-49) U/L Alkaline Phosphatase (38-126) U/L Total Protein (6.3-8.2) g/dL Albumin (3.5-5.0) g/dL 06/26/24 06/26/24 06/26/24 Range/Units 06:36 06:45 06:45 WBC 14.0 H (3.8-10.6) k/uL MCHC (31.0-37.0) g/dL RDW 15.6 H (11.5-15.5) % Plt Count 143 L (150-450) k/uL Neutrophils # 12.4 H (1.3-7.7) k/uL Lymphocytes # 0.7 L (1.0-4.8) k/uL Sodium 130 L (137-145) mmol/L Potassium 3.1 L (3.5-5.1) mmol/L Chloride 88 L (98-107) mmol/L Carbon Dioxide 38 H (22-30) mmol/L BUN 100 H (9-20) mg/dL Creatinine 2.59 H (0.66-1.25) mg/dL POC Glucose (mg/dL) 130 H (70-110) mg/dL Magnesium (1.6-2.3) mg/dL Total Bilirubin 1.6 H (0.2-1.3) mg/dL AST 108 H (17-59) U/L ALT 87 H (4-49) U/L Alkaline Phosphatase 141 H (38-126) U/L Total Protein 5.7 L (6.3-8.2) g/dL Albumin 3.1 L (3.5-5.0) g/dL Assessment and Plan Assessment: 1. Chronic kidney disease stage IIIb secondary to diabetic kidney disease and cardiorenal syndrome. Baseline creatinine 2-2.3. GFR near baseline. Recent UA showed no proteinuria. Ultrasound from last month showed no hydronephrosis. 2. Acute on chronic systolic CHF ejection fraction of 20% with mild to moderate tricuspid regurgitation. 3. Volume overload. Improving with diuresis. 4. Coronary artery disease. 5. Diabetes mellitus. 6. Hypervolemic hyponatremia. Also component of hypertonicity from hyperglycem ia. 7. Hypertension with chronic kidney disease. Stable. 8. Hypokalemia from diuresis. Magnesium normal. Replaced. Improved. 9. Metabolic alkalosis with respiratory compensation. 10. Acute kidney injury, mostly cardiorenal and secondary to obstructive uropathy as ultrasound done yesterday showed bilateral mild hydronephrosis. Lindo catheter was placed yesterday and renal function has improved. Plan: continue off of diuretics today. Continue with Lindo catheter and Flomax okay to resume Farxiga as renal function has improved. Replace potassium Reevaluate for restarting diuretics in a.m.
--- NOTE | 2024-06-26 11:22 | P.PN ---
Subjective HISTORY OF PRESENT ILLNESS: This is a 78-year-old male patient of Dr. Juan Wellington with past medical history of paroxysmal atrial fibrillation, coronary artery disease on medical therapy, hypertension, hyperlipidemia, diabetes mellitus type 2, chronic kidney disease stage IIIb, family history of premature coronary artery disease. We have been asked to evaluate the patient for NSTEMI. Patient had a recent hospitalization 06/03 - 06/12 at which time he was seen by cardiology for persistent atrial fibrillation flat troponin secondary to hypoperfusion. Patient presented to the emergency center due to shortness of breath along with leg swelling. Symptoms have been going on for the past week. He has been taking his medications as directed at home. Blood pressure 107/74, heart rate 98, pulse ox 96% on 2 L nasal cannula. Patient has been started on Lasix drip and he is followed by nephrology. EKG: Atrial fibrillation with right bundle branch block Chest x-ray: Stable bilateral lower lobe infiltrate and small pleural effusion. Laboratory studies: WBC 17, hemoglobin 15.1. INR 1.5. Sodium 131, CO2 33, BUN 102, creatinine 2.21. Lactic acid 2.7. Troponin 0.47, 0.473, 0.468. proBNP 16,700. Home cardiac medications: Eliquis 5 mg twice daily, aspirin 81 mg daily, atorvastatin 80 mg daily, Farxiga 5 mg daily, fenofibrate 67 mg daily, Lasix 40 mg twice daily, Imdur 30 mg daily, lisinopril 10 mg at bedtime, magnesium oxide 800 mg twice daily, metoprolol succinate 50 mg daily. Lexiscan Cardiolite stress test performed 10/04/2023 in the office revealed negative stress test by EKG criteria. Abnormal nuclear scan showing evidence of inferior lateral myocardial infarction with LV systolic dysfunction and EF 40% without evidence of ischemia. Cardiac catheterization performed 09/02/2021 revealed moderate stenosis involving the right coronary artery. Echocardiogram performed 06/04/2024 revealed EF 25 %. Four-chamber enlargement. Mild mitral regurgitation. Mild to moderate tricuspid regurgitation, aortic valve sclerosis with calcification 06/22/2024 Patient examined this morning. Patient is sitting up in the chair. Patient c urrently denies chest pain or pressure. Reports shortness of breath is improving. He remains on IV Lasix and IV Diamox. Creatinine today 2.5. Patient's blood pressures have been low with a systolic in the 80s90s. 06/23/2024 Patient examined this morning at the bedside. Patient currently denies chest pain or pressure. He reports mild shortness of breath. He is maintained on IV diuretics per nephrology. Creatinine today 2.85. Patient is having runs of nonsustained ventricular tachycardia. Patient is asymptomatic with these episodes. Blood pressure is stable. Most recent reading 107/72. Addendum entered and electronically signed by Sobia Yeager NP-C 06/23/24 14:16: Notified by patients nurse that family arrived and stated patient is unable to take amio. Apparently, he was placed on this recently for afib rvr and had multiple adverse effects. However, this was never documented in the EMR as an allergy. Patients nurse states that patient is now lethargic and has a headache. Will DC amio. 06/24/2024 Patient examined this morning the bedside. He is sitting in the chair. Patient currently denies chest pain or pressure. He continues to report shortness of breath. No further episodes of ventricular tachycardia. His beta-jairo was increased yesterday. Blood pressure stable. Most recent reading 95/60. 06/25/2024 Patient examined this morning at the bedside. Patient currently denies chest pain or pressure. He reports improvement in his shortness of breath. Creatinine today 3.13. Vital signs are stable. No further episodes of ventricular tachycardia. 06/26/2024 Patient examined this morning at the bedside. Patient denies any chest pain or pressure. He states his shortness of breath is improving. He does continue to report a cough. Nursing reports patient had a 6 and 9 beat run of V. tach this morning. Potassium was 3.1 and is currently being replaced. Magnesium 2.4. Patient remains on metoprolol. Creatinine 2.59. He remains off diuretics. Nephrology is following. PHYSICAL EXAM: VITAL SIGNS: Reviewed. GENERAL: Well-developed in no acute distress. NECK: Supple. No JVD or thyromegaly LUNGS: Respirations even and unlabored. Lungs diminished bilaterally. HEART: Irregular rate and rhythm. S1 and S2 heard. EXTREMITIES: Normal range of motion. No clubbing or cyanosis. Peripheral pulses intact. Bilateral lower extremity edema noted. ASSESSMENT: Chronically elevated troponin due to poor renal clearance, less likely ACS Acute on chronic heart failure with reduced EF Acute on chronic kidney disease Hypotension, improving Ischemic cardiomyopathy, EF 25% Nonsustained ventricular tachycardia Permanent atrial fibrillation Coronary artery disease Hypertension Hyperlipidemia Diabetes mellitus type 2 Family history of premature coronary artery disease Obstructive uropathy with bilateral mild hydronephrosis PLAN: Continue current cardiac medications Replace potassium. Continue to monitor kidney function Continue telemetry monitoring Continue current dose of metoprolol succinate 50 mg daily. Do not decrease dose due to patient having runs of ventricular tachycardia. Patient unable to tolerate amiodarone Recommend eventual AICD implantation Further recommendations pending patient course Nurse practitioner note has been reviewed by physician. Signing provider agrees with the documented findings, assessment, and plan of care documented by STAGE ELECTRICIAN HELPER as a scribe. Objective - Vital Signs Vital signs: Vital Signs Temp 97.5 F L 06/26/24 07:42 Pulse 60 06/26/24 09:41 Resp 14 06/26/24 07:42 BP 103/58 06/26/24 07:42 Pulse Ox 98 06/26/24 09:24 FiO2 Intake & Output 06/25/24 06/26/24 06/26/24 18:59 06:59 18:59 Intake Total 560 20 Output Total 1800 700 Balance -1240 -680 Weight 89.1 kg 89.5 kg Intake: IV 20 20 Invasive Line 3 20 20 Oral 540 Output: Urine 1800 700 Other: Voiding Method Indwelling Catheter Indwelling Catheter - Labs CBC & Chem 7: 06/26/24 06:45 06/26/24 06:45 Labs: Abnormal Lab Results - Last 24 Hours (Table) 06/25/24 06/25/24 06/25/24 Range/Units 07:30 11:50 16:03 WBC 16.9 H (3.8-10.6) k/uL MCHC 30.9 L (31.0-37.0) g/dL RDW 15.7 H (11.5-15.5) % Plt Count (150-450) k/uL Neutrophils # 14.8 H (1.3-7.7) k/uL Lymphocytes # (1.0-4.8) k/uL Sodium (137-145) mmol/L Potassium (3.5-5.1) mmol/L Chloride (98-107) mmol/L Carbon Dioxide (22-30) mmol/L BUN (9-20) mg/dL Creatinine (0.66-1.25) mg/dL POC Glucose (mg/dL) 155 H 140 H (70-110) mg/dL Magnesium (1.6-2.3) mg/dL Total Bilirubin (0.2-1.3) mg/dL AST (17-59) U/L ALT (4-49) U/L Alkaline Phosphatase (38-126) U/L Total Protein (6.3-8.2) g/dL Albumin (3.5-5.0) g/dL 06/26/24 06/26/24 06/26/24 Range/Units 05:39 05:58 06:13 WBC (3.8-10.6) k/uL MCHC (31.0-37.0) g/dL RDW (11.5-15.5) % Plt Count (150-450) k/uL Neutrophils # (1.3-7.7) k/uL Lymphocytes # (1.0-4.8) k/uL Sodium (137-145) mmol/L Potassium (3.5-5.1) mmol/L Chloride (98-107) mmol/L Carbon Dioxide (22-30) mmol/L BUN (9-20) mg/dL Creatinine (0.66-1.25) mg/dL POC Glucose (mg/dL) 58 L 61 L (70-110) mg/dL Magnesium 2.4 H (1.6-2.3) mg/dL Total Bilirubin (0.2-1.3) mg/dL AST (17-59) U/L ALT (4-49) U/L Alkaline Phosphatase (38-126) U/L Total Protein (6.3-8.2) g/dL Albumin (3.5-5.0) g/dL 06/26/24 06/26/24 06/26/24 Range/Units 06:36 06:45 06:45 WBC 14.0 H (3.8-10.6) k/uL MCHC (31.0-37.0) g/dL RDW 15.6 H (11.5-15.5) % Plt Count 143 L (150-450) k/uL Neutrophils # 12.4 H (1.3-7.7) k/uL Lymphocytes # 0.7 L (1.0-4.8) k/uL Sodium 130 L (137-145) mmol/L Potassium 3.1 L (3.5-5.1) mmol/L Chloride 88 L (98-107) mmol/L Carbon Dioxide 38 H (22-30) mmol/L BUN 100 H (9-20) mg/dL Creatinine 2.59 H (0.66-1.25) mg/dL POC Glucose (mg/dL) 130 H (70-110) mg/dL Magnesium (1.6-2.3) mg/dL Total Bilirubin 1.6 H (0.2-1.3) mg/dL AST 108 H (17-59) U/L ALT 87 H (4-49) U/L Alkaline Phosphatase 141 H (38-126) U/L Total Protein 5.7 L (6.3-8.2) g/dL Albumin 3.1 L (3.5-5.0) g/dL
[2024-06-26 11:31] LABS: Glucose,Whole Blood 227 mg/dL (70-110)
[2024-06-26] MEDS ORDERED: Potassium Replacement Protocol 1 EACH MISC MISCELLANE PRN (13:10)
--- NOTE | 2024-06-26 13:15 | P.PN ---
Subjective Progress Note Date: 06/26/24 Interval History: 78-year-old male, follows with PCP Dr. Baker with a past medical history of atrial fibrillation on anticoagulation with Eliquis, coronary disease stent replacement, hypertension, hyperlipidemia, diabetes type 2 [id number], CKD and prior history of CVAstatus post stent trouble remembering things and prior history of left lower extremity DVT, anxiety/depression. Chronic back pain does use a brace Patient presents with increasing swelling of the legs. Finding it difficult to walk. Decreased appetite. Recently diagnosed with UTI was given antibiotic. Does use a walker. Just weak and tired. Also short of breath. Some orthopnea. June 19: Patient seen this afternoon overflowing the ER. Remains on IV Lasix drip 10 mg an hour. Making good urine output. Some improvement in breathing. Eating some. June 20: Patient remains on IV Lasix drip. Urine output. Swelling and breathing better. Did tolerate some diet. June 21: Seen by cardiology earlier today. Switched over to IV bolus Lasix 40 every 12. About 6 L negative fluid balance. Still has significant edema. Up in recliner. Eating about 50%. June 22: Patient remains on IV Lasix 40 mg every 12. IV Diamox. Negative fluid balance. Still has significant lower extremity edema. Had BREAKFAST. Up in recliner. Tired. June 23: Up in a recliner. Edema slowly coming down. About 10 L negative fluid balance. IV Lasix discontinued per nephrology. Remains on IV Diamox. Chest x-ray done today shows improved aeration. Emery wrap lower extremity. Oral intake 25 to 50%.. Patient walked about 76 feet with a rolling walker. June 24: Up in recliner. Appetite much better-eating 100%. Remains in negative fluid balance. On IV Diamox. Accu-Cheks running high. Add Levemir 16 units daily June 25: Patient blood pressure has been running on the lower side. Sometime in the 80s. Off diuretics for couple of days. Had short runs of V. tach. Which was put on Toprol-XL. By cardiology. Received Toprol-XL this afternoon. Decreased appetite. Had some abdominal pain earlier today. Abdominal x-ray unremarkable. Renal ultrasound shows mild bilateral hydronephrosis. Bilateral some shrinkage of the kidney. Further increase in creatinine. Being followed by cardiology and nephrology. 06/26/2024 Patient was seen and examined today. Patient complained of lethargic. Patient complaining of shortness of breath and congestion. Nephrology and cardiology following. Currently on IV acetazolamide for contraction alkalosis. Afebrile, heart rate 54, respiratory rate 14, blood pressure soft 92/57, saturating 97% on room air. WBCs 14.0, hemoglobin 14.9, platelet 143. Sodium 130, potassium 3.1, CO2 38, BUN 100, creatinine 2.59. AST 108 ALT 87. Assessment and plan: Acute on chronic congestive heart failure from systolic dysfunction EF 20%. Ischemic cardiomyopathy: Improving Initially Lasix drip followed by bolus Lasix,-discontinued. Diamox IV Strict I's and O's. Fluid restriction. Over 10 L negative fluid balance Follow labs closely Cardiology following -Metabolic alkalosis from volume contraction from diuresis Diamox IV -Oral candidiasis Diflucan # Acute kidney injury ATN secondary to hypotension-cardiorenal syndrome.: Slow worsening No obstructive uropathy. Nephrology following -Troponinemia is likely secondary to chronic kidney disease. No ACS #CKD stage IIIb:Likely nephrosclerosis, baseline creatinine 1.8-2 mg/dL. Follow creatinine #Persistent atrial fibrillation: Eliquis, Toprol-XL 50 mg a day Cardiology following -Run of V. tach Toprol -Hepatitis picture with intrahepatic cholestasis. Possibly with from CHF Hold Lipitor -Diabetes mellitus type 2, uncontrolled with hyperglycemia On Farxiga-- Add Levemir 16 units daily. -Type II lactic acidosis. No evidence of infection -Troponin: From underlying CKD. No ACS #CAD with prior stent in November 2020: Beta-jairo, aspirin #Intermittent asthma: DuoNeb. #Depression: Celexa 20 mg nightly and BuSpar 10 mg twice daily #Essential hypertension: Beta-jairo #Hyperlipidemia: Lipitor 80 mg and fenofibrate 54 mg p.o. daily-held currently because of elevated liver enzymes IV Diamox. Blood pressure running a bit on the lower side. Toprol-XL per cardio. Follow with nephrology. DVT prophylaxis: On Eliquis Monitor vital signs and labs Labs and medication were reviewed. Continue same treatment. Further recommendations as per clinical course of the patient PHYSICAL EXAMINATION: GENERAL: The patient is A&O x3, lethargic. HEENT: EOMI, Sclerae anicteric, Moist Mucous membranes Neck: Supple, Non tender, No JVD PULMONARY: Equal breath souds B/L, No wheezing, lateral crackles. CARDIOVASCULAR: S1, S2 present. No murmurs, rubs, or gallops. ABDOMEN: Soft, nontender, nondistended, normoactive bowel sounds. No guarding or rebound tenderness. MUSCULOSKELETAL: +edema, No cyanosis. No clubbing. Normal ROM. Intact peripheral pulses. NEUROLOGICAL: CN 2-12 grossly intact. No FND Skin: No Rash REVIEW OF SYSTEMS: CONSTITUTIONAL: No fever or chills. Complained of fatigue and weakness. CARDIOVASCULAR: No chest pain, palpitations or syncope. PULMONARY: Complains of shortness of breath, complains of more congestion today. GASTROINTESTINAL: No nausea, vomiting, diarrhea, abdominal pain. : No Dysuria, urgency, frequency. NEUROLOGICAL: No headaches, no weakness, or numbness Dictation was produced using [email or web address] dictation software. please excuse any grammatical, word or spelling errors. Objective - Vital Signs Vital signs: Vital Signs Temp 97.5 F L 06/26/24 12:01 Pulse 54 L 06/26/24 12:01 Resp 14 06/26/24 12:01 BP 92/57 06/26/24 12:01 Pulse Ox 97 06/26/24 12:01 FiO2 Intake & Output 06/25/24 06/26/24 06/26/24 18:59 06:59 18:59 Intake Total 560 20 Output Total 2045 550 3636 Balance -1240 -680 -1200 Weight 89.1 kg 89.5 kg Intake: IV 20 20 Invasive Line 3 20 20 Oral 540 Output: Urine 2216 091 7076 Other: Voiding Method Indwelling Catheter Indwelling Catheter - Labs CBC & Chem 7: 06/26/24 06:45 06/26/24 06:45 Labs: Abnormal Lab Results - Last 24 Hours (Table) 06/25/24 06/26/24 06/26/24 Range/Units 16:03 05:39 05:58 WBC (3.8-10.6) k/uL RDW (11.5-15.5) % Plt Count (150-450) k/uL Neutrophils # (1.3-7.7) k/uL Lymphocytes # (1.0-4.8) k/uL Sodium (137-145) mmol/L Potassium (3.5-5.1) mmol/L Chloride (98-107) mmol/L Carbon Dioxide (22-30) mmol/L BUN (9-20) mg/dL Creatinine (0.66-1.25) mg/dL POC Glucose (mg/dL) 140 H 58 L (70-110) mg/dL Magnesium 2.4 H (1.6-2.3) mg/dL Total Bilirubin (0.2-1.3) mg/dL AST (17-59) U/L ALT (4-49) U/L Alkaline Phosphatase (38-126) U/L Total Protein (6.3-8.2) g/dL Albumin (3.5-5.0) g/dL 06/26/24 06/26/24 06/26/24 Range/Units 06:13 06:36 06:45 WBC 14.0 H (3.8-10.6) k/uL RDW 15.6 H (11.5-15.5) % Plt Count 143 L (150-450) k/uL Neutrophils # 12.4 H (1.3-7.7) k/uL Lymphocytes # 0.7 L (1.0-4.8) k/uL Sodium (137-145) mmol/L Potassium (3.5-5.1) mmol/L Chloride (98-107) mmol/L Carbon Dioxide (22-30) mmol/L BUN (9-20) mg/dL Creatinine (0.66-1.25) mg/dL POC Glucose (mg/dL) 61 L 130 H (70-110) mg/dL Magnesium (1.6-2.3) mg/dL Total Bilirubin (0.2-1.3) mg/dL AST (17-59) U/L ALT (4-49) U/L Alkaline Phosphatase (38-126) U/L Total Protein (6.3-8.2) g/dL Albumin (3.5-5.0) g/dL 06/26/24 06/26/24 Range/Units 06:45 11:29 WBC (3.8-10.6) k/uL RDW (11.5-15.5) % Plt Count (150-450) k/uL Neutrophils # (1.3-7.7) k/uL Lymphocytes # (1.0-4.8) k/uL Sodium 130 L (137-145) mmol/L Potassium 3.1 L (3.5-5.1) mmol/L Chloride 88 L (98-107) mmol/L Carbon Dioxide 38 H (22-30) mmol/L BUN 100 H (9-20) mg/dL Creatinine 2.59 H (0.66-1.25) mg/dL POC Glucose (mg/dL) 227 H (70-110) mg/dL Magnesium (1.6-2.3) mg/dL Total Bilirubin 1.6 H (0.2-1.3) mg/dL AST 108 H (17-59) U/L ALT 87 H (4-49) U/L Alkaline Phosphatase 141 H (38-126) U/L Total Protein 5.7 L (6.3-8.2) g/dL Albumin 3.1 L (3.5-5.0) g/dL
[2024-06-26 16:27] LABS: Glucose,Whole Blood 188 mg/dL (70-110)
[2024-06-26 19:54] LABS: Glucose,Whole Blood 234 mg/dL (70-110)
[2024-06-26] MEDS: HYDROcodone/APAP 5-325MG 1 EACH TAB PO PRN (20:04)
[2024-06-26 20:31] LABS: African American GFR (CKD) 30 (>60 ml/min/1.73 sqM); Anion Gap 6 mmol/L; Blood Urea Nitrogen 91 mg/dL (9-20); Calcium 8.6 mg/dL (8.4-10.2); Carbon Dioxide 32 mmol/L (22-30); Chloride 92 mmol/L (98-107); Glucose 209 mg/dL (74-99); Non-African American GFR(CKD) 26 (>60 ml/min/1.73 sqM); Potassium 3.7 mmol/L (3.5-5.1); Sodium 130 mmol/L (137-145)
[2024-06-27 02:02] LABS: Glucose,Whole Blood 134 mg/dL (70-110)
[2024-06-27 05:56] LABS: Glucose,Whole Blood 96 mg/dL (70-110)
[2024-06-27 08:14] LABS: Basophils % (A) 0 %; Eosinophils # (A) 0.1 k/uL (0-0.7); Eosinophils % (A) 1 %; HCT 45.2 % (39.0-53.0); HGB 13.7 gm/dL (13.0-17.5); Hypochromasia Slight; Lymphocytes # (A) 0.9 k/uL (1.0-4.8); Lymphocytes % (A) 8 %; MCH 26.9 pg (25.0-35.0); MCHC 30.4 g/dL (31.0-37.0); MCV 88.6 fL (80.0-100.0); Mean Platelet Volume 8.5; Monocytes # (A) 0.4 k/uL (0-1.0); Monocytes % (A) 4 %; Neutrophils # (A) 8.7 k/uL (1.3-7.7); Neutrophils % (A) 85 %; Platelet Count 150 k/uL (150-450); RDW 15.9 % (11.5-15.5); WBC 10.2 k/uL (3.8-10.6)
[2024-06-27 09:06] LABS: ALT 73 U/L (4-49); AST 71 U/L (17-59); African American GFR (CKD) 32 (>60 ml/min/1.73 sqM); Albumin 2.9 g/dL (3.5-5.0); Alkaline Phosphatase 126 U/L (38-126); Anion Gap 8 mmol/L; Blood Urea Nitrogen 83 mg/dL (9-20); Carbon Dioxide 31 mmol/L (22-30); Chloride 94 mmol/L (98-107); Glucose 107 mg/dL (74-99); Non-African American GFR(CKD) 28 (>60 ml/min/1.73 sqM); Potassium 3.7 mmol/L (3.5-5.1); Sodium 133 mmol/L (137-145); Total Bilirubin 1.3 mg/dL (0.2-1.3); Total Protein 5.4 g/dL (6.3-8.2)
[2024-06-27 09:08] LABS: Calcium 8.6 mg/dL (8.4-10.2)
--- NOTE | 2024-06-27 10:09 | P.PN ---
Subjective 78-year-old male, follows with PCP Dr. Baker with a past medical history of atrial fibrillation on anticoagulation with Eliquis, coronary disease stent replacement, hypertension, hyperlipidemia, diabetes type 2 [id number], CKD and prior history of CVAstatus post stent trouble remembering things and prior history of left lower extremity DVT, anxiety/depression. Chronic back pain does use a brace Patient presents with increasing swelling of the legs. Finding it difficult to walk. Decreased appetite. Recently diagnosed with UTI was given antibiotic. Does use a walker. Just weak and tired. Also short of breath. Some orthopnea. June 19: Patient seen this afternoon overflowing the ER. Remains on IV Lasix drip 10 mg an hour. Making good urine output. Some improvement in breathing. Eating some. June 20: Patient remains on IV Lasix drip. Urine output. Swelling and breathing better. Did tolerate some diet. June 21: Seen by cardiology earlier today. Switched over to IV bolus Lasix 40 every 12. About 6 L negative fluid balance. Still has significant edema. Up in recliner. Eating about 50%. June 22: Patient remains on IV Lasix 40 mg every 12. IV Diamox. Negative fluid balance. Still has significant lower extremity edema. Had BREAKFAST. Up in recliner. Tired. June 23: Up in a recliner. Edema slowly coming down. About 10 L negative fluid balance. IV Lasix discontinued per nephrology. Remains on IV Diamox. Chest x-ray done today shows improved aeration. Emery wrap lower extremity. Oral intake 25 to 50%.. Patient walked about 76 feet with a rolling walker. June 24: Up in recliner. Appetite much better-eating 100%. Remains in negative fluid balance. On IV Diamox. Accu-Cheks running high. Add Levemir 16 units daily June 25: Patient blood pressure has been running on the lower side. Sometime in the 80s. Off diuretics for couple of days. Had short runs of V. tach. Which was put on Toprol-XL. By cardiology. Received Toprol-XL this afternoon. Decreased appetite. Had some abdominal pain earlier today. Abdominal x-ray unremarkable. Renal ultrasound shows mild bilateral hydronephrosis. Bilateral some shrinkage of the kidney. Further increase in creatinine. Being followed by cardiology and nephrology. 06/26/2024 Patient was seen and examined today. Patient complained of lethargic. Patient complaining of shortness of breath and congestion. Nephrology and cardiology following. Currently on IV acetazolamide for contraction alkalosis. Afebrile, heart rate 54, respiratory rate 14, blood pressure soft 92/57, saturating 97% on room air. WBCs 14.0, hemoglobin 14.9, platelet 143. Sodium 130, potassium 3.1, CO2 38, BUN 100, creatinine 2.59. AST 108 ALT 87. 06/27 Patient with no dyspnea No leg edema Patient complains from right side chest pain about 8/10 with no significant tenderness most likely musculoskeletal No other new complaint Lindo catheter is in place His back pain feels better today, it was hurting him last night Labs reviewed and all his numbers are improving. WBC back to normal at 10.4, sodium up to 133. Creatinine was at baseline and still improving down to 2.1. Liver enzymes trending down with AST 71 and ALT 73 Patient currently on Diflucan, Eliquis and aspirin Patient continued with metoprolol with fulfillment mail clerk recommended AICD upon discharge Objective - Vital Signs Vital signs: Vital Signs Temp 98.5 F 06/27/24 03:22 Pulse 70 06/27/24 08:05 Resp 16 06/27/24 08:05 BP 93/52 06/27/24 03:22 Pulse Ox 93 L 06/27/24 03:22 FiO2 Intake & Output 06/26/24 06/27/24 06/27/24 18:59 06:59 18:59 Intake Total 360 Output Total 1675 900 Balance -1315 -900 Weight 85.5 kg Intake: Oral 360 Output: Urine 1675 900 Other: Voiding Method Indwelling Catheter Indwelling Catheter # Bowel Movements 1 - Exam GENERAL: The patient is alert and oriented x3, not in any acute distress. Well developed, well nourished. HEENT: Pupils are round and equally reacting to light. EOMI. No scleral icterus. No conjunctival pallor. Normocephalic, atraumatic. No pharyngeal erythema. No thyromegaly. CARDIOVASCULAR: S1 and S2 present. No murmurs, rubs, or gallops. PULMONARY: Chest is clear to auscultation, no wheezing , no crackles. ABDOMEN: Soft, nontender, nondistended, normoactive bowel sounds. No palpable organomegaly. MUSCULOSKELETAL: No joint swelling or deformity. EXTREMITIES: No cyanosis, clubbing, or pedal edema. NEUROLOGICAL: Gross neurological examination did not reveal any focal deficits. SKIN: No rashes. no petechiae. - Labs CBC & Chem 7: 06/27/24 07:52 06/27/24 07:52 Labs: Abnormal Lab Results - Last 24 Hours (Table) 06/26/24 06/26/24 06/26/24 Range/Units 05:39 11:29 16:26 MCHC (31.0-37.0) g/dL RDW (11.5-15.5) % Neutrophils # (1.3-7.7) k/uL Lymphocytes # (1.0-4.8) k/uL Sodium (137-145) mmol/L Chloride (98-107) mmol/L Carbon Dioxide (22-30) mmol/L BUN (9-20) mg/dL Creatinine (0.66-1.25) mg/dL Glucose (74-99) mg/dL POC Glucose (mg/dL) 227 H 188 H (70-110) mg/dL Magnesium 2.4 H (1.6-2.3) mg/dL AST (17-59) U/L ALT (4-49) U/L Total Protein (6.3-8.2) g/dL Albumin (3.5-5.0) g/dL 06/26/24 06/26/24 06/27/24 Range/Units 19:53 20:02 02:00 MCHC (31.0-37.0) g/dL RDW (11.5-15.5) % Neutrophils # (1.3-7.7) k/uL Lymphocytes # (1.0-4.8) k/uL Sodium 130 L (137-145) mmol/L Chloride 92 L (98-107) mmol/L Carbon Dioxide 32 H (22-30) mmol/L BUN 91 H (9-20) mg/dL Creatinine 2.30 H (0.66-1.25) mg/dL Glucose 209 H (74-99) mg/dL POC Glucose (mg/dL) 234 H 134 H (70-110) mg/dL Magnesium (1.6-2.3) mg/dL AST (17-59) U/L ALT (4-49) U/L Total Protein (6.3-8.2) g/dL Albumin (3.5-5.0) g/dL 06/27/24 06/27/24 Range/Units 07:52 07:52 MCHC 30.4 L (31.0-37.0) g/dL RDW 15.9 H (11.5-15.5) % Neutrophils # 8.7 H (1.3-7.7) k/uL Lymphocytes # 0.9 L (1.0-4.8) k/uL Sodium 133 L (137-145) mmol/L Chloride 94 L (98-107) mmol/L Carbon Dioxide 31 H (22-30) mmol/L BUN 83 H (9-20) mg/dL Creatinine 2.19 H (0.66-1.25) mg/dL Glucose 107 H (74-99) mg/dL POC Glucose (mg/dL) (70-110) mg/dL Magnesium (1.6-2.3) mg/dL AST 71 H (17-59) U/L ALT 73 H (4-49) U/L Total Protein 5.4 L (6.3-8.2) g/dL Albumin 2.9 L (3.5-5.0) g/dL Assessment and Plan Assessment: Assessment and plan: Acute on chronic congestive heart failure from systolic dysfunction EF 20%. Ischemic cardiomyopathy: Improving Initially Lasix drip followed by bolus Lasix,-discontinued. Diamox IV Strict I's and O's. Fluid restriction. Over 10 L negative fluid balance Follow labs closely Cardiology following -Metabolic alkalosis from volume contraction from diuresis Diamox IV -Oral candidiasis Diflucan # Acute kidney injury ATN secondary to hypotension-cardiorenal syndrome.: Slow worsening No obstructive uropathy. Nephrology following -Troponinemia is likely secondary to chronic kidney disease. No ACS #CKD stage IIIb:Likely nephrosclerosis, baseline creatinine 1.8-2 mg/dL. Follow creatinine #Persistent atrial fibrillation: Eliquis, Toprol-XL 50 mg a day Cardiology following -Run of V. tach Toprol -Hepatitis picture with intrahepatic cholestasis. Possibly with from CHF Hold Lipitor -Diabetes mellitus type 2, uncontrolled with hyperglycemia On Farxiga-- Add Levemir 16 units daily. -Type II lactic acidosis. No evidence of infection -Troponin: From underlying CKD. No ACS #CAD with prior stent in November 2020: Beta-jairo, aspirin #Intermittent asthma: DuoNeb. #Depression: Celexa 20 mg nightly and BuSpar 10 mg twice daily #Essential hypertension: Beta-jairo #Hyperlipidemia: Lipitor 80 mg and fenofibrate 54 mg p.o. daily-held currently because of elevated liver enzymes IV Diamox. Blood pressure running a bit on the lower side. Toprol-XL per cardio. Follow with nephrology. DVT prophylaxis: On Eliquis
[2024-06-27] MEDS: DAPAGLIFLOZIN PROPANEDIOL 5 MG TABLET PO SCH (11:20)
[2024-06-27] MEDS: POTASSIUM CHLORIDE ER 20 MEQ TAB.ER PO STA (11:21)
[2024-06-27 11:47] LABS: Glucose,Whole Blood 276 mg/dL (70-110)
--- NOTE | 2024-06-27 12:31 | P.PN ---
Subjective HISTORY OF PRESENT ILLNESS: This is a 78-year-old male patient of Dr. Juan Wellington with past medical history of paroxysmal atrial fibrillation, coronary artery disease on medical therapy, hypertension, hyperlipidemia, diabetes mellitus type 2, chronic kidney disease stage IIIb, family history of premature coronary artery disease. We have been asked to evaluate the patient for NSTEMI. Patient had a recent hospitalization 06/03 - 06/12 at which time he was seen by cardiology for persistent atrial fibrillation flat troponin secondary to hypoperfusion. Patient presented to the emergency center due to shortness of breath along with leg swelling. Symptoms have been going on for the past week. He has been taking his medications as directed at home. Blood pressure 107/74, heart rate 98, pulse ox 96% on 2 L nasal cannula. Patient has been started on Lasix drip and he is followed by nephrology. EKG: Atrial fibrillation with right bundle branch block Chest x-ray: Stable bilateral lower lobe infiltrate and small pleural effusion. Laboratory studies: WBC 17, hemoglobin 15.1. INR 1.5. Sodium 131, CO2 33, BUN 102, creatinine 2.21. Lactic acid 2.7. Troponin 0.47, 0.473, 0.468. proBNP 16,700. Home cardiac medications: Eliquis 5 mg twice daily, aspirin 81 mg daily, atorvastatin 80 mg daily, Farxiga 5 mg daily, fenofibrate 67 mg daily, Lasix 40 mg twice daily, Imdur 30 mg daily, lisinopril 10 mg at bedtime, magnesium oxide 800 mg twice daily, metoprolol succinate 50 mg daily. Lexiscan Cardiolite stress test performed 10/04/2023 in the office revealed negative stress test by EKG criteria. Abnormal nuclear scan showing evidence of inferior lateral myocardial infarction with LV systolic dysfunction and EF 40% without evidence of ischemia. Cardiac catheterization performed 09/02/2021 revealed moderate stenosis involving the right coronary artery. Echocardiogram performed 06/04/2024 revealed EF 25 %. Four-chamber enlargement. Mild mitral regurgitation. Mild to moderate tricuspid regurgitation, aortic valve sclerosis with calcification 06/22/2024 Patient examined this morning. Patient is sitting up in the chair. Patient c urrently denies chest pain or pressure. Reports shortness of breath is improving. He remains on IV Lasix and IV Diamox. Creatinine today 2.5. Patient's blood pressures have been low with a systolic in the 80s90s. 06/23/2024 Patient examined this morning at the bedside. Patient currently denies chest pain or pressure. He reports mild shortness of breath. He is maintained on IV diuretics per nephrology. Creatinine today 2.85. Patient is having runs of nonsustained ventricular tachycardia. Patient is asymptomatic with these episodes. Blood pressure is stable. Most recent reading 107/72. Addendum entered and electronically signed by Sobia Yeager NP-C 06/23/24 14:16: Notified by patients nurse that family arrived and stated patient is unable to take amio. Apparently, he was placed on this recently for afib rvr and had multiple adverse effects. However, this was never documented in the EMR as an allergy. Patients nurse states that patient is now lethargic and has a headache. Will DC amio. 06/24/2024 Patient examined this morning the bedside. He is sitting in the chair. Patient currently denies chest pain or pressure. He continues to report shortness of breath. No further episodes of ventricular tachycardia. His beta-jairo was increased yesterday. Blood pressure stable. Most recent reading 95/60. 06/25/2024 Patient examined this morning at the bedside. Patient currently denies chest pain or pressure. He reports improvement in his shortness of breath. Creatinine today 3.13. Vital signs are stable. No further episodes of ventricular tachycardia. 06/26/2024 Patient examined this morning at the bedside. Patient denies any chest pain or pressure. He states his shortness of breath is improving. He does continue to report a cough. Nursing reports patient had a 6 and 9 beat run of V. tach this morning. Potassium was 3.1 and is currently being replaced. Magnesium 2.4. Patient remains on metoprolol. Creatinine 2.59. He remains off diuretics. Nephrology is following. 06/27/2024 Patient examined this morning at the bedside. Patient currently denies chest pain or pressure. Patient states he feels like his shortness of breath is getting worse compared to yesterday. Creatinine today is 2.19. He remains off diuretics. Potassium today 3.7. PHYSICAL EXAM: VITAL SIGNS: Reviewed. GENERAL: Well-developed in no acute distress. NECK: Supple. No JVD or thyromegaly LUNGS: Respirations even and unlabored. Lungs diminished bilaterally. HEART: Irregular rate and rhythm. S1 and S2 heard. EXTREMITIES: Normal range of motion. No clubbing or cyanosis. Peripheral pulses intact. Bilateral lower extremity edema noted. ASSESSMENT: Chronically elevated troponin due to poor renal clearance, less likely ACS Acute on chronic heart failure with reduced EF Acute on chronic kidney disease Hypotension, improving Ischemic cardiomyopathy, EF 25% Nonsustained ventricular tachycardia Permanent atrial fibrillation Coronary artery disease Hypertension Hyperlipidemia Diabetes mellitus type 2 Family history of premature coronary artery disease Obstructive uropathy with bilateral mild hydronephrosis PLAN: Continue current cardiac medications Replace potassium. Continue to monitor kidney function. Diuretic management per nephrology. Continue telemetry monitoring Continue current dose of metoprolol succinate 50 mg daily. Do not decrease dose due to patient having runs of ventricular tachycardia. Patient unable to tolerate amiodarone Recommend eventual AICD implantation Further recommendations pending patient course Nurse practitioner note has been reviewed by physician. Signing provider agrees with the documented findings, assessment, and plan of care documented by [employer] as a scribe. Objective - Vital Signs Vital signs: Vital Signs Temp 97.7 F 06/27/24 08:55 Pulse 73 06/27/24 08:55 Resp 16 06/27/24 08:55 BP 106/64 06/27/24 08:55 Pulse Ox 93 L 06/27/24 08:55 FiO2 Intake & Output 06/26/24 06/27/24 06/27/24 18:59 06:59 18:59 Intake Total 360 Output Total 1675 900 Balance -1315 -900 Weight 85.5 kg Intake: Oral 360 Output: Urine 1675 900 Other: Voiding Method Indwelling Catheter Indwelling Catheter Indwelling Catheter # Bowel Movements 1 - Labs CBC & Chem 7: 06/27/24 07:52 06/27/24 07:52 Labs: Abnormal Lab Results - Last 24 Hours (Table) 06/26/24 06/26/24 06/26/24 Range/Units 16:26 19:53 20:02 MCHC (31.0-37.0) g/dL RDW (11.5-15.5) % Neutrophils # (1.3-7.7) k/uL Lymphocytes # (1.0-4.8) k/uL Sodium 130 L (137-145) mmol/L Chloride 92 L (98-107) mmol/L Carbon Dioxide 32 H (22-30) mmol/L BUN 91 H (9-20) mg/dL Creatinine 2.30 H (0.66-1.25) mg/dL Glucose 209 H (74-99) mg/dL POC Glucose (mg/dL) 188 H 234 H (70-110) mg/dL AST (17-59) U/L ALT (4-49) U/L Total Protein (6.3-8.2) g/dL Albumin (3.5-5.0) g/dL 06/27/24 06/27/24 06/27/24 Range/Units 02:00 07:52 07:52 MCHC 30.4 L (31.0-37.0) g/dL RDW 15.9 H (11.5-15.5) % Neutrophils # 8.7 H (1.3-7.7) k/uL Lymphocytes # 0.9 L (1.0-4.8) k/uL Sodium 133 L (137-145) mmol/L Chloride 94 L (98-107) mmol/L Carbon Dioxide 31 H (22-30) mmol/L BUN 83 H (9-20) mg/dL Creatinine 2.19 H (0.66-1.25) mg/dL Glucose 107 H (74-99) mg/dL POC Glucose (mg/dL) 134 H (70-110) mg/dL AST 71 H (17-59) U/L ALT 73 H (4-49) U/L Total Protein 5.4 L (6.3-8.2) g/dL Albumin 2.9 L (3.5-5.0) g/dL 06/27/24 Range/Units 11:45 MCHC (31.0-37.0) g/dL RDW (11.5-15.5) % Neutrophils # (1.3-7.7) k/uL Lymphocytes # (1.0-4.8) k/uL Sodium (137-145) mmol/L Chloride (98-107) mmol/L Carbon Dioxide (22-30) mmol/L BUN (9-20) mg/dL Creatinine (0.66-1.25) mg/dL Glucose (74-99) mg/dL POC Glucose (mg/dL) 276 H (70-110) mg/dL AST (17-59) U/L ALT (4-49) U/L Total Protein (6.3-8.2) g/dL Albumin (3.5-5.0) g/dL
--- NOTE | 2024-06-27 12:55 | P.PN ---
Subjective Progress Note Date: 06/27/24 Patient is seen for follow-up for chronic kidney disease. Had hydronephrosis now with Lindo. No new complaints. Patient is awake, comfortable, no acute distress. Examination of the heart S1 and S2 Examination of the lungs bilateral breath sounds are heard. Decreased breath sounds at the bases Abdomen is soft nontender Examination lower extremity shows edema trace bilaterally, stable Objective - Vital Signs Vital signs: Vital Signs Temp 97.7 F 06/27/24 08:55 Pulse 73 06/27/24 08:55 Resp 16 06/27/24 08:55 BP 106/64 06/27/24 08:55 Pulse Ox 93 L 06/27/24 08:55 FiO2 Intake & Output 06/26/24 06/27/24 06/27/24 18:59 06:59 18:59 Intake Total 360 Output Total 1675 900 Balance -1315 -900 Weight 85.5 kg Intake: Oral 360 Output: Urine 1675 900 Other: Voiding Method Indwelling Catheter Indwelling Catheter Indwelling Catheter # Bowel Movements 1 - Labs CBC & Chem 7: 06/27/24 07:52 06/27/24 07:52 Labs: Abnormal Lab Results - Last 24 Hours (Table) 06/26/24 06/26/24 06/26/24 Range/Units 11:29 16:26 19:53 MCHC (31.0-37.0) g/dL RDW (11.5-15.5) % Neutrophils # (1.3-7.7) k/uL Lymphocytes # (1.0-4.8) k/uL Sodium (137-145) mmol/L Chloride (98-107) mmol/L Carbon Dioxide (22-30) mmol/L BUN (9-20) mg/dL Creatinine (0.66-1.25) mg/dL Glucose (74-99) mg/dL POC Glucose (mg/dL) 227 H 188 H 234 H (70-110) mg/dL AST (17-59) U/L ALT (4-49) U/L Total Protein (6.3-8.2) g/dL Albumin (3.5-5.0) g/dL 06/26/24 06/27/24 06/27/24 Range/Units 20:02 02:00 07:52 MCHC 30.4 L (31.0-37.0) g/dL RDW 15.9 H (11.5-15.5) % Neutrophils # 8.7 H (1.3-7.7) k/uL Lymphocytes # 0.9 L (1.0-4.8) k/uL Sodium 130 L (137-145) mmol/L Chloride 92 L (98-107) mmol/L Carbon Dioxide 32 H (22-30) mmol/L BUN 91 H (9-20) mg/dL Creatinine 2.30 H (0.66-1.25) mg/dL Glucose 209 H (74-99) mg/dL POC Glucose (mg/dL) 134 H (70-110) mg/dL AST (17-59) U/L ALT (4-49) U/L Total Protein (6.3-8.2) g/dL Albumin (3.5-5.0) g/dL 06/27/24 Range/Units 07:52 MCHC (31.0-37.0) g/dL RDW (11.5-15.5) % Neutrophils # (1.3-7.7) k/uL Lymphocytes # (1.0-4.8) k/uL Sodium 133 L (137-145) mmol/L Chloride 94 L (98-107) mmol/L Carbon Dioxide 31 H (22-30) mmol/L BUN 83 H (9-20) mg/dL Creatinine 2.19 H (0.66-1.25) mg/dL Glucose 107 H (74-99) mg/dL POC Glucose (mg/dL) (70-110) mg/dL AST 71 H (17-59) U/L ALT 73 H (4-49) U/L Total Protein 5.4 L (6.3-8.2) g/dL Albumin 2.9 L (3.5-5.0) g/dL Assessment and Plan Assessment: 1. Chronic kidney disease stage IIIb secondary to diabetic kidney disease and cardiorenal syndrome. Baseline creatinine 2-2.3. GFR near baseline. Recent UA showed no proteinuria. Ultrasound from last month showed no hydronephrosis. 2. Acute on chronic systolic CHF ejection fraction of 20% with mild to moderate tricuspid regurgitation. 3. Volume overload. Improving with diuresis. 4. Coronary artery disease. 5. Diabetes mellitus. 6. Hypervolemic hyponatremia. Also component of hypertonicity from hyperglycemia. 7. Hypertension with chronic kidney disease. Stable. 8. Hypokalemia from diuresis. Magnesium normal. Replaced. Improved. 9. Metabolic alkalosis with respiratory compensation. 10. Acute kidney injury, mostly cardiorenal and secondary to obstructive uropathy as ultrasound done yesterday showed bilateral mild hydronephrosis. Lindo catheter was placed yesterday and renal function has improved. Plan: Continue with Lindo catheter and Flomax Renal function back at baseline OK to resume diuretics as needed
[2024-06-27 16:47] LABS: Glucose,Whole Blood 135 mg/dL (70-110)
[2024-06-27 20:11] LABS: Glucose,Whole Blood 131 mg/dL (70-110)
[2024-06-28 06:07] LABS: Glucose,Whole Blood 41 mg/dL (70-110)
[2024-06-28 06:27] LABS: Glucose,Whole Blood 63 mg/dL (70-110)
[2024-06-28 06:47] LABS: Glucose,Whole Blood 90 mg/dL (70-110)
--- NOTE | 2024-06-28 09:59 | P.PN ---
Subjective 78-year-old male, follows with PCP Dr. Baker with a past medical history of atrial fibrillation on anticoagulation with Eliquis, coronary disease stent replacement, hypertension, hyperlipidemia, diabetes type 2 [id number], CKD and prior history of CVAstatus post stent trouble remembering things and prior history of left lower extremity DVT, anxiety/depression. Chronic back pain does use a brace Patient presents with increasing swelling of the legs. Finding it difficult to walk. Decreased appetite. Recently diagnosed with UTI was given antibiotic. Does use a walker. Just weak and tired. Also short of breath. Some orthopnea. June 19: Patient seen this afternoon overflowing the ER. Remains on IV Lasix drip 10 mg an hour. Making good urine output. Some improvement in breathing. Eating some. June 20: Patient remains on IV Lasix drip. Urine output. Swelling and breathing better. Did tolerate some diet. June 21: Seen by cardiology earlier today. Switched over to IV bolus Lasix 40 every 12. About 6 L negative fluid balance. Still has significant edema. Up in recliner. Eating about 50%. June 22: Patient remains on IV Lasix 40 mg every 12. IV Diamox. Negative fluid balance. Still has significant lower extremity edema. Had BREAKFAST. Up in recliner. Tired. June 23: Up in a recliner. Edema slowly coming down. About 10 L negative fluid balance. IV Lasix discontinued per nephrology. Remains on IV Diamox. Chest x-ray done today shows improved aeration. Emery wrap lower extremity. Oral intake 25 to 50%.. Patient walked about 76 feet with a rolling walker. June 24: Up in recliner. Appetite much better-eating 100%. Remains in negative fluid balance. On IV Diamox. Accu-Cheks running high. Add Levemir 16 units daily June 25: Patient blood pressure has been running on the lower side. Sometime in the 80s. Off diuretics for couple of days. Had short runs of V. tach. Which was put on Toprol-XL. By cardiology. Received Toprol-XL this afternoon. Decreased appetite. Had some abdominal pain earlier today. Abdominal x-ray unremarkable. Renal ultrasound shows mild bilateral hydronephrosis. Bilateral some shrinkage of the kidney. Further increase in creatinine. Being followed by cardiology and nephrology. 06/26/2024 Patient was seen and examined today. Patient complained of lethargic. Patient complaining of shortness of breath and congestion. Nephrology and cardiology following. Currently on IV acetazolamide for contraction alkalosis. Afebrile, heart rate 54, respiratory rate 14, blood pressure soft 92/57, saturating 97% on room air. WBCs 14.0, hemoglobin 14.9, platelet 143. Sodium 130, potassium 3.1, CO2 38, BUN 100, creatinine 2.59. AST 108 ALT 87. 06/27 Patient with no dyspnea No leg edema Patient complains from right side chest pain about 8 with no significant tenderness most likely musculoskeletal No other new complaint Lindo catheter is in place His back pain feels better today, it was hurting him last night Labs reviewed and all his numbers are improving. WBC back to normal at 10.4, sodium up to 133. Creatinine was at baseline and still improving down to 2.1. Liver enzymes trending down with AST 71 and ALT 73 Patient currently on Diflucan, Eliquis and aspirin Patient continued with metoprolol with physicist solid earth recommended AICD upon discharge 06/28 Patient awake alert Is getting breathing treatment No chest pain His sugar was low overnight down to 40s, therefore we lowered his glipizide 10 mg twice daily down to 5 mg twice daily and Levemir dose 16 units down to 12 units at bedtime with close monitoring of glucose Leukocytosis and hyponatremia improving. Creatinine level is stable Liver enzymes trending down Patient remains on Eliquis Diflucan, aspirin and diabetes medication as above Objective - Vital Signs Vital signs: Vital Signs Temp 97.9 F 06/27/24 16:25 Pulse 74 06/28/24 09:49 Resp 16 06/28/24 03:45 BP 112/72 06/28/24 03:45 Pulse Ox 94 L 06/28/24 03:45 FiO2 Intake & Output 06/27/24 06/28/24 06/28/24 18:59 06:59 18:59 Intake Total 236 10 Output Total 325 1125 Balance -89 -1115 Intake: IV 10 Invasive Line 3 10 Oral 236 Output: Urine 325 1125 Other: Voiding Method Indwelling Catheter Indwelling Catheter - Exam GENERAL: The patient is alert and oriented x3, not in any acute distress. Well developed, well nourished. HEENT: Pupils are round and equally reacting to light. EOMI. No scleral icterus. No conjunctival pallor. Normocephalic, atraumatic. No pharyngeal erythema. No thyromegaly. CARDIOVASCULAR: S1 and S2 present. No murmurs, rubs, or gallops. PULMONARY: Chest is clear to auscultation, no wheezing , no crackles. ABDOMEN: Soft, nontender, nondistended, normoactive bowel sounds. No palpable organomegaly. MUSCULOSKELETAL: No joint swelling or deformity. EXTREMITIES: No cyanosis, clubbing, or pedal edema. NEUROLOGICAL: Gross neurological examination did not reveal any focal deficits. SKIN: No rashes. no petechiae. - Labs CBC & Chem 7: 06/27/24 07:52 06/27/24 07:52 Labs: Abnormal Lab Results - Last 24 Hours (Table) 06/27/24 06/27/24 06/27/24 Range/Units 11:45 16:46 20:09 POC Glucose (mg/dL) 276 H 135 H 131 H (70-110) mg/dL 06/28/24 06/28/24 Range/Units 06:05 06:26 POC Glucose (mg/dL) 41 L* 63 L (70-110) mg/dL Assessment and Plan Assessment: Assessment and plan: Acute on chronic congestive heart failure from systolic dysfunction EF 20%. Ischemic cardiomyopathy: Improving Initially Lasix drip followed by bolus Lasix,-discontinued. Diamox IV Strict I's and O's. Fluid restriction. Over 10 L negative fluid balance Follow labs closely Cardiology following -Metabolic alkalosis from volume contraction from diuresis Diamox IV -Oral candidiasis Diflucan # Acute kidney injury ATN secondary to hypotension-cardiorenal syndrome.: Slow worsening No obstructive uropathy. Nephrology following -Troponinemia is likely secondary to chronic kidney disease. No ACS #CKD stage IIIb:Likely nephrosclerosis, baseline creatinine 1.8-2 mg/dL. Follow creatinine #Persistent atrial fibrillation: Eliquis, Toprol-XL 50 mg a day Cardiology following -Run of V. tach Toprol -Hepatitis picture with intrahepatic cholestasis. Possibly with from CHF Hold Lipitor -Diabetes mellitus type 2, uncontrolled with hyperglycemia On Farxiga-- Add Levemir 16 units daily. -Type II lactic acidosis. No evidence of infection -Troponin: From underlying CKD. No ACS #CAD with prior stent in November 2020: Beta-jairo, aspirin #Intermittent asthma: DuoNeb. #Depression: Celexa 20 mg nightly and BuSpar 10 mg twice daily #Essential hypertension: Beta-jairo #Hyperlipidemia: Lipitor 80 mg and fenofibrate 54 mg p.o. daily-held currently because of elevated liver enzymes IV Diamox. Blood pressure running a bit on the lower side. Toprol-XL per cardio. Follow with nephrology. DVT prophylaxis: On Eliquis
--- NOTE | 2024-06-28 10:45 | P.PN ---
Subjective Progress Note Date: 06/28/24 Patient is seen for follow-up for chronic kidney disease. Had hydronephrosis now with Lindo. No new complaints. Patient is awake, comfortable, no acute distress. Examination of the heart S1 and S2 Examination of the lungs bilateral breath sounds are heard. Decreased breath sounds at the bases Abdomen is soft nontender Examination lower extremity shows edema trace bilaterally, stable Objective - Vital Signs Vital signs: Vital Signs Temp 97.9 F 06/27/24 16:25 Pulse 74 06/28/24 09:49 Resp 16 06/28/24 03:45 BP 112/72 06/28/24 03:45 Pulse Ox 94 L 06/28/24 03:45 FiO2 Intake & Output 06/27/24 06/28/24 06/28/24 18:59 06:59 18:59 Intake Total 236 10 Output Total 325 1125 Balance -89 -1115 Intake: IV 10 Invasive Line 3 10 Oral 236 Output: Urine 325 1125 Other: Voiding Method Indwelling Catheter Indwelling Catheter - Labs CBC & Chem 7: 06/27/24 07:52 06/27/24 07:52 Labs: Abnormal Lab Results - Last 24 Hours (Table) 06/27/24 06/27/24 06/27/24 Range/Units 11:45 16:46 20:09 POC Glucose (mg/dL) 276 H 135 H 131 H (70-110) mg/dL 06/28/24 06/28/24 Range/Units 06:05 06:26 POC Glucose (mg/dL) 41 L* 63 L (70-110) mg/dL Assessment and Plan Assessment: 1. Chronic kidney disease stage IIIb secondary to diabetic kidney disease and cardiorenal syndrome. Baseline creatinine 2-2.3. GFR near baseline. Recent UA showed no proteinuria. Ultrasound from last month showed no hydronephrosis. 2. Acute on chronic systolic CHF ejection fraction of 20% with mild to moderate tricuspid regurgitation. 3. Volume overload. Improving with diuresis. 4. Coronary artery disease. 5. Diabetes mellitus. 6. Hypervolemic hyponatremia. Also component of hypertonicity from hyperglycemia. 7. Hypertension with chronic kidney disease. Stable. 8. Hypokalemia from diuresis. Magnesium normal. Replaced. Improved. 9. Metabolic alkalosis with respiratory compensation. 10. Acute kidney injury, mostly cardiorenal and secondary to obstructive uropathy as ultrasound done yesterday showed bilateral mild hydronephrosis. Lindo catheter was placed yesterday and renal function has improved. Plan: Continue with Lindo catheter and Flomax Renal function back at baseline OK to resume diuretics as needed
[2024-06-28 11:32] LABS: Glucose,Whole Blood 275 mg/dL (70-110)
--- NOTE | 2024-06-28 13:00 | P.PN ---
Subjective HISTORY OF PRESENT ILLNESS: This is a 78-year-old male patient of Dr. Juan Wellington with past medical history of paroxysmal atrial fibrillation, coronary artery disease on medical therapy, hypertension, hyperlipidemia, diabetes mellitus type 2, chronic kidney disease stage IIIb, family history of premature coronary artery disease. We have been asked to evaluate the patient for NSTEMI. Patient had a recent hospitalization 06/03 - 06/12 at which time he was seen by cardiology for persistent atrial fibrillation flat troponin secondary to hypoperfusion. Patient presented to the emergency center due to shortness of breath along with leg swelling. Symptoms have been going on for the past week. He has been taking his medications as directed at home. Blood pressure 107/74, heart rate 98, pulse ox 96% on 2 L nasal cannula. Patient has been started on Lasix drip and he is followed by nephrology. EKG: Atrial fibrillation with right bundle branch block Chest x-ray: Stable bilateral lower lobe infiltrate and small pleural effusion. Laboratory studies: WBC 17, hemoglobin 15.1. INR 1.5. Sodium 131, CO2 33, BUN 102, creatinine 2.21. Lactic acid 2.7. Troponin 0.47, 0.473, 0.468. proBNP 16,700. Home cardiac medications: Eliquis 5 mg twice daily, aspirin 81 mg daily, atorvastatin 80 mg daily, Farxiga 5 mg daily, fenofibrate 67 mg daily, Lasix 40 mg twice daily, Imdur 30 mg daily, lisinopril 10 mg at bedtime, magnesium oxide 800 mg twice daily, metoprolol succinate 50 mg daily. Lexiscan Cardiolite stress test performed 10/04/2023 in the office revealed negative stress test by EKG criteria. Abnormal nuclear scan showing evidence of inferior lateral myocardial infarction with LV systolic dysfunction and EF 40% without evidence of ischemia. Cardiac catheterization performed 09/02/2021 revealed moderate stenosis involving the right coronary artery. Echocardiogram performed 06/04/2024 revealed EF 25 %. Four-chamber enlargement. Mild mitral regurgitation. Mild to moderate tricuspid regurgitation, aortic valve sclerosis with calcification 06/22/2024 Patient examined this morning. Patient is sitting up in the chair. Patient c urrently denies chest pain or pressure. Reports shortness of breath is improving. He remains on IV Lasix and IV Diamox. Creatinine today 2.5. Patient's blood pressures have been low with a systolic in the 80s90s. 06/23/2024 Patient examined this morning at the bedside. Patient currently denies chest pain or pressure. He reports mild shortness of breath. He is maintained on IV diuretics per nephrology. Creatinine today 2.85. Patient is having runs of nonsustained ventricular tachycardia. Patient is asymptomatic with these episodes. Blood pressure is stable. Most recent reading 107/72. Addendum entered and electronically signed by Sobia Yeager NP-C 06/23/24 14:16: Notified by patients nurse that family arrived and stated patient is unable to take amio. Apparently, he was placed on this recently for afib rvr and had multiple adverse effects. However, this was never documented in the EMR as an allergy. Patients nurse states that patient is now lethargic and has a headache. Will DC amio. 06/24/2024 Patient examined this morning the bedside. He is sitting in the chair. Patient currently denies chest pain or pressure. He continues to report shortness of breath. No further episodes of ventricular tachycardia. His beta-jairo was increased yesterday. Blood pressure stable. Most recent reading 95/60. 06/25/2024 Patient examined this morning at the bedside. Patient currently denies chest pain or pressure. He reports improvement in his shortness of breath. Creatinine today 3.13. Vital signs are stable. No further episodes of ventricular tachycardia. 06/26/2024 Patient examined this morning at the bedside. Patient denies any chest pain or pressure. He states his shortness of breath is improving. He does continue to report a cough. Nursing reports patient had a 6 and 9 beat run of V. tach this morning. Potassium was 3.1 and is currently being replaced. Magnesium 2.4. Patient remains on metoprolol. Creatinine 2.59. He remains off diuretics. Nephrology is following. 06/27/2024 Patient examined this morning at the bedside. Patient currently denies chest pain or pressure. Patient states he feels like his shortness of breath is getting worse compared to yesterday. Creatinine today is 2.19. He remains off diuretics. Potassium today 3.7. 06/28/2024 Patient examined this morning at the bedside. Patient currently denies chest pain or pressure. He states his breathing feels about the same today. Vital signs are stable. Patient did have an episode of hypoglycemia this morning. Nephrology is following and managing diuretics. PHYSICAL EXAM: VITAL SIGNS: Reviewed. GENERAL: Well-developed in no acute distress. NECK: Supple. No JVD or thyromegaly LUNGS: Respirations even and unlabored. Lungs diminished bilaterally. HEART: Irregular rate and rhythm. S1 and S2 heard. EXTREMITIES: Normal range of motion. No clubbing or cyanosis. Peripheral pulses intact. Bilateral lower extremity edema noted. ASSESSMENT: Chronically elevated troponin due to poor renal clearance, less likely ACS Acute on chronic heart failure with reduced EF Acute on chronic kidney disease Hypotension, improving Ischemic cardiomyopathy, EF 25% Nonsustained ventricular tachycardia Permanent atrial fibrillation Coronary artery disease Hypertension Hyperlipidemia Diabetes mellitus type 2 Family history of premature coronary artery disease Obstructive uropathy with bilateral mild hydronephrosis PLAN: Continue current cardiac medications Continue to monitor kidney function. Diuretic management per nephrology. Continue telemetry monitoring Continue current dose of metoprolol succinate 50 mg daily. Do not decrease dose due to patient having runs of ventricular tachycardia. Patient unable to tolerate amiodarone Recommend eventual AICD implantation Further recommendations pending patient course Nurse practitioner note has been reviewed by physician. Signing provider agrees with the documented findings, assessment, and plan of care documented by [employer] as a scribe. Objective - Vital Signs Vital signs: Vital Signs Temp 97.2 F L 06/28/24 08:25 Pulse 53 L 06/28/24 11:05 Resp 16 06/28/24 11:05 BP 115/82 06/28/24 11:05 Pulse Ox 99 06/28/24 11:05 FiO2 Intake & Output 06/27/24 06/28/24 06/28/24 18:59 06:59 18:59 Intake Total 236 10 Output Total 325 1125 425 Balance -89 -1115 -425 Intake: IV 10 Invasive Line 3 10 Oral 236 Output: Urine 325 1125 425 Other: Voiding Method Indwelling Catheter Indwelling Catheter Indwelling Catheter - Labs CBC & Chem 7: 06/27/24 07:52 06/27/24 07:52 Labs: Abnormal Lab Results - Last 24 Hours (Table) 06/27/24 06/27/24 06/28/24 Range/Units 16:46 20:09 06:05 POC Glucose (mg/dL) 135 H 131 H 41 L* (70-110) mg/dL 06/28/24 06/28/24 Range/Units 06:26 11:29 POC Glucose (mg/dL) 63 L 275 H (70-110) mg/dL
[2024-06-28 16:37] LABS: Glucose,Whole Blood 237 mg/dL (70-110)
[2024-06-28 20:00] LABS: Glucose,Whole Blood 272 mg/dL (70-110)
[2024-06-29 06:15] LABS: Glucose,Whole Blood 112 mg/dL (70-110)
[2024-06-29] MEDS: INSULIN DETEMIR (LEVEMIR) 100 UNIT/ML SYR SQ SCH (06:29)
[2024-06-29] MEDS: glipiZIDE 5 MG TAB PO SCH (06:29)
--- NOTE | 2024-06-29 09:29 | P.PN ---
Subjective Patient is seen in follow-up for chronic kidney disease. Renal function improving of the last 2 to 3 days with creatinine 2.19 yesterday. Nonoliguric. Has Lindo catheter. Receiving a breathing treatment. Vital signs are stable. General: No acute distress. HEENT: Head exam is unremarkable. LUNGS: Scattered rhonchi. HEART: Rate and Rhythm are regular. ABDOMEN: Nontender. EXTREMITITES: Trace edema. Objective - Vital Signs Vital signs: Vital Signs Temp 98 F 06/29/24 04:00 Pulse 72 06/29/24 08:30 Resp 18 06/29/24 04:00 BP 111/64 06/29/24 04:00 Pulse Ox 95 06/29/24 08:21 FiO2 Intake & Output 06/28/24 06/29/24 06/29/24 18:59 06:59 18:59 Intake Total 240 240 Output Total 1075 400 Balance -835 -400 240 Weight 88 kg Intake: Oral 240 240 Output: Urine 1075 400 Other: Voiding Method Indwelling Catheter Indwelling Catheter - Labs CBC & Chem 7: 06/27/24 07:52 06/27/24 07:52 Labs: Abnormal Lab Results - Last 24 Hours (Table) 06/28/24 06/28/24 06/28/24 Range/Units 11:29 16:34 19:59 POC Glucose (mg/dL) 275 H 237 H 272 H (70-110) mg/dL 06/29/24 Range/Units 06:13 POC Glucose (mg/dL) 112 H (70-110) mg/dL Assessment and Plan Plan: Assessment: 1. Chronic kidney disease stage IIIb secondary to diabetic kidney disease and cardiorenal syndrome. Baseline creatinine 2-2.3. GFR near baseline. Recent UA showed no proteinuria. Ultrasound from last month showed no hydronephrosis. 2. Acute on chronic systolic CHF ejection fraction of 20% with mild to moderate tricuspid regurgitation. 3. Volume overload. Status post diuresis. Improved. 4. Coronary artery disease. 5. Diabetes mellitus. 6. Hypervolemic hyponatremia. Also component of hypertonicity from hyperglycemia. Improved. 7. Hypertension with chronic kidney disease. Controlled. 8. Hypokalemia from diuresis. Magnesium normal. Replaced. Improved. 9. Metabolic alkalosis with respiratory compensation. Status post Diamox. Improved. 10. Acute kidney injury secondary to cardiorenal syndrome and obstructive uropathy. Creatinine peaked at 3.1 this admission and was 2.19 yesterday. 11. Urinary retention with bilateral hydronephrosis. Has Lindo catheter. On Flomax. Urology consulted. Plan: Add oral Lasix 40 mg once daily. Maintain Farxiga. Strict I's and O's. Low-salt diet and 1500 cc fluid restriction. Blood glucose control. Continue to monitor renal function and urine output. Repeat labs in the morning.
[2024-06-29] MEDS: FUROSEMIDE 40 MG TAB PO SCH (09:37)
[2024-06-29 11:55] LABS: Glucose,Whole Blood 287 mg/dL (70-110)
[2024-06-29 12:36] VITALS: BMI 27.8
--- NOTE | 2024-06-29 14:36 | P.PN ---
Subjective Progress Note Date: 06/29/24 HISTORY OF PRESENT ILLNESS: This is a 78-year-old male patient of Dr. Juan Wellington with past medical history of paroxysmal atrial fibrillation, coronary artery disease on medical therapy, hypertension, hyperlipidemia, diabetes mellitus type 2, chronic kidney disease stage IIIb, family history of premature coronary artery disease. We have been asked to evaluate the patient for NSTEMI. Patient had a recent hospitalization 06/03 - 06/12 at which time he was seen by cardiology for persistent atrial fibrillation flat troponin secondary to hypoperfusion. Patient presented to the emergency center due to shortness of breath along with leg swelling. Symptoms have been going on for the past week. He has been taking his medications as directed at home. Blood pressure 107/74, heart rate 98, pulse ox 96% on 2 L nasal cannula. Patient has been started on Lasix drip and he is followed by nephrology. EKG: Atrial fibrillation with right bundle branch block Chest x-ray: Stable bilateral lower lobe infiltrate and small pleural effusion. Laboratory studies: WBC 17, hemoglobin 15.1. INR 1.5. Sodium 131, CO2 33, BUN 102, creatinine 2.21. Lactic acid 2.7. Troponin 0.47, 0.473, 0.468. proBNP 16,700. Home cardiac medications: Eliquis 5 mg twice daily, aspirin 81 mg daily, atorvastatin 80 mg daily, Farxiga 5 mg daily, fenofibrate 67 mg daily, Lasix 40 mg twice daily, Imdur 30 mg daily, lisinopril 10 mg at bedtime, magnesium oxide 800 mg twice daily, metoprolol succinate 50 mg daily. Lexiscan Cardiolite stress test performed 10/04/2023 in the office revealed negative stress test by EKG criteria. Abnormal nuclear scan showing evidence of inferior lateral myocardial infarction with LV systolic dysfunction and EF 40% without evidence of ischemia. Cardiac catheterization performed 09/02/2021 revealed moderate stenosis involving the right coronary artery. Echocardiogram performed 06/04/2024 revealed EF 25 %. Four-chamber enlargement. Mild mitral regurgitation. Mild to moderate tricuspid regurgitation, aortic valve sclerosis with calcification 06/22/2024 Patient examined this morning. Patient is sitting up in the chair. Patient currently denies chest pain or pressure. Reports shortness of breath is improving. He remains on IV Lasix and IV Diamox. Creatinine today 2.5. Patient's blood pressures have been low with a systolic in the 80s90s. 06/23/2024 Patient examined this morning at the bedside. Patient currently denies chest pain or pressure. He reports mild shortness of breath. He is maintained on IV diuretics per nephrology. Creatinine today 2.85. Patient is having runs of nonsustained ventricular tachycardia. Patient is asymptomatic with these episodes. Blood pressure is stable. Most recent reading 107/72. Addendum entered and electronically signed by Sobia Yeager NP-C 06/23/24 14:16: Notified by patients nurse that family arrived and stated patient is unable to take amio. Apparently, he was placed on this recently for afib rvr and had multiple adverse effects. However, this was never documented in the EMR as an allergy. Patients nurse states that patient is now lethargic and has a headache. Will DC amio. 06/24/2024 Patient examined this morning the bedside. He is sitting in the chair. Patient currently denies chest pain or pressure. He continues to report shortness of breath. No further episodes of ventricular tachycardia. His beta-jairo was increased yesterday. Blood pressure stable. Most recent reading 95/60. 06/25/2024 Patient examined this morning at the bedside. Patient currently denies chest p ain or pressure. He reports improvement in his shortness of breath. Creatinine today 3.13. Vital signs are stable. No further episodes of ventricular tachycardia. 06/26/2024 Patient examined this morning at the bedside. Patient denies any chest pain or pressure. He states his shortness of breath is improving. He does continue to report a cough. Nursing reports patient had a 6 and 9 beat run of V. tach this morning. Potassium was 3.1 and is currently being replaced. Magnesium 2.4. Patient remains on metoprolol. Creatinine 2.59. He remains off diuretics. Nephrology is following. 06/27/2024 Patient examined this morning at the bedside. Patient currently denies chest pain or pressure. Patient states he feels like his shortness of breath is getting worse compared to yesterday. Creatinine today is 2.19. He remains off diuretics. Potassium today 3.7. 06/28/2024 Patient examined this morning at the bedside. Patient currently denies chest pain or pressure. He states his breathing feels about the same today. Vital signs are stable. Patient did have an episode of hypoglycemia this morning. Nephrology is following and managing diuretics. 06/29/2024 Patient seen and examined. He is complaining of congestion in his chest today. Otherwise he is feeling okay. A little edema, no palpitations now but he has had yesterday. Daughter is at the bedside and concerned that he has had some hallucinations or confusion today. Plan is for discharge to [facility] in [facility]. Blood pressure 106/60, heart rate 60, pulse ox 98% on room air. PHYSICAL EXAM: VITAL SIGNS: Reviewed. GENERAL: Well-developed in no acute distress. NECK: Supple. No JVD or thyromegaly LUNGS: Respirations even and unlabored. Lungs diminished bilaterally. HEART: Irregular rate and rhythm. S1 and S2 heard. EXTREMITIES: No clubbing or cyanosis. Peripheral pulses intact. Bilateral lower extremity edema noted. ASSESSMENT: Chronically elevated troponin due to poor renal clearance, less likely ACS Acute on chronic heart failure with reduced EF Acute on chronic kidney disease Hypotension, improving Ischemic cardiomyopathy, EF 25% Nonsustained ventricular tachycardia Permanent atrial fibrillation Coronary artery disease Hypertension Hyperlipidemia Diabetes mellitus type 2 Family history of premature coronary artery disease Obstructive uropathy with bilateral mild hydronephrosis PLAN: Continue current cardiac medications: Eliquis 2.5 mg twice daily, aspirin 81 mg daily, atorvastatin 40 mg at bedtime, Farxiga 5 mg daily, Imdur 30 mg daily, magnesium oxide 400 mg twice daily, Toprol-XL 50 mg daily Continue to monitor kidney function. Diuretic management per nephrology, currently at oral Lasix 40 mg daily. Continue telemetry monitoring Continue current dose of metoprolol succinate 50 mg daily. Do not decrease dose due to patient having runs of ventricular tachycardia. Patient unable to tolerate amiodarone Recommend eventual AICD implantation Further recommendations pending patient course Nurse practitioner note has been reviewed by physician. Signing provider agrees with the documented findings, assessment, and plan of care documented by [employer] as a scribe. Objective - Vital Signs Vital signs: Vital Signs Temp 97.8 F 06/29/24 08:00 Pulse 72 06/29/24 08:30 Resp 16 06/29/24 08:00 BP 106/60 06/29/24 08:00 Pulse Ox 95 06/29/24 08:21 FiO2 Intake & Output 06/28/24 06/29/24 06/29/24 18:59 06:59 18:59 Intake Total 240 480 Output Total 1075 400 Balance -835 -400 480 Weight 88 kg Intake: Oral 240 480 Output: Urine 1075 400 Other: Voiding Method Indwelling Catheter Indwelling Catheter Indwelling Catheter - Labs CBC & Chem 7: 06/27/24 07:52 06/27/24 07:52 Labs: Abnormal Lab Results - Last 24 Hours (Table) 06/28/24 06/28/24 06/29/24 Range/Units 16:34 19:59 06:13 POC Glucose (mg/dL) 237 H 272 H 112 H (70-110) mg/dL
[2024-06-29 16:17] LABS: Glucose,Whole Blood 119 mg/dL (70-110)
[2024-06-29 20:19] LABS: Glucose,Whole Blood 129 mg/dL (70-110)
[2024-06-30 06:17] LABS: Glucose,Whole Blood 54 mg/dL (70-110)
[2024-06-30 06:29] LABS: Glucose,Whole Blood 68 mg/dL (70-110)
[2024-06-30 06:43] LABS: Glucose,Whole Blood 98 mg/dL (70-110)
[2024-06-30 06:54] LABS: Anisocytosis Slight; Basophils % (A) 0 %; Eosinophils # (A) 0.1 k/uL (0-0.7); Eosinophils % (A) 1 %; HCT 45.3 % (39.0-53.0); HGB 14.3 gm/dL (13.0-17.5); Hypochromasia Slight; Lymphocytes # (A) 1.2 k/uL (1.0-4.8); Lymphocytes % (A) 11 %; MCH 27.8 pg (25.0-35.0); MCHC 31.6 g/dL (31.0-37.0); MCV 87.8 fL (80.0-100.0); Mean Platelet Volume 7.9; Monocytes # (A) 0.4 k/uL (0-1.0); Monocytes % (A) 4 %; Neutrophils # (A) 8.8 k/uL (1.3-7.7); Neutrophils % (A) 82 %; Platelet Count 167 k/uL (150-450); RBC 5.16 m/uL (4.30-5.90); RDW 16.2 % (11.5-15.5); WBC 10.7 k/uL (3.8-10.6)
[2024-06-30 07:10] LABS: African American GFR (CKD) 50 (>60 ml/min/1.73 sqM); Anion Gap 7 mmol/L; Blood Urea Nitrogen 58 mg/dL (9-20); Calcium 8.6 mg/dL (8.4-10.2); Carbon Dioxide 28 mmol/L (22-30); Chloride 98 mmol/L (98-107); Glucose 79 mg/dL (74-99); Non-African American GFR(CKD) 44 (>60 ml/min/1.73 sqM); Potassium 3.8 mmol/L (3.5-5.1); Sodium 133 mmol/L (137-145)
[2024-06-30 08:36] LABS: Glucose,Whole Blood 190 mg/dL (70-110)
--- NOTE | 2024-06-30 10:22 | P.PN ---
Subjective Patient is seen in follow-up for chronic kidney disease. Renal function continues to improve. Nonoliguric. Has Lindo catheter. Denies chest pain or shortness of breath. Vital signs are stable. General: No acute distress. HEENT: Head exam is unremarkable. On room air. LUNGS: Scattered rhonchi. HEART: Rate and Rhythm are regular. ABDOMEN: Nontender. EXTREMITITES: Trace edema. Objective - Vital Signs Vital signs: Vital Signs Temp 97.8 F 06/30/24 04:18 Pulse 72 06/30/24 10:08 Resp 18 06/30/24 04:18 BP 113/74 06/30/24 04:18 Pulse Ox 97 06/30/24 04:18 FiO2 Intake & Output 06/29/24 06/30/24 06/30/24 18:59 06:59 18:59 Intake Total 840 240 180 Output Total 850 800 Balance -10 -560 180 Weight 88 kg 77.1 kg Intake: Oral 840 240 180 Output: Urine 850 800 Other: Voiding Method Indwelling Catheter Indwelling Catheter # Bowel Movements 1 - Labs CBC & Chem 7: 06/30/24 06:37 06/30/24 06:37 Labs: Abnormal Lab Results - Last 24 Hours (Table) 06/29/24 06/29/24 06/29/24 Range/Units 11:53 16:16 20:17 WBC (3.8-10.6) k/uL RDW (11.5-15.5) % Neutrophils # (1.3-7.7) k/uL Sodium (137-145) mmol/L BUN (9-20) mg/dL Creatinine (0.66-1.25) mg/dL POC Glucose (mg/dL) 287 H 119 H 129 H (70-110) mg/dL 06/30/24 06/30/24 06/30/24 Range/Units 06:11 06:27 06:37 WBC 10.7 H (3.8-10.6) k/uL RDW 16.2 H (11.5-15.5) % Neutrophils # 8.8 H (1.3-7.7) k/uL Sodium (137-145) mmol/L BUN (9-20) mg/dL Creatinine (0.66-1.25) mg/dL POC Glucose (mg/dL) 54 L 68 L (70-110) mg/dL 06/30/24 06/30/24 Range/Units 06:37 08:34 WBC (3.8-10.6) k/uL RDW (11.5-15.5) % Neutrophils # (1.3-7.7) k/uL Sodium 133 L (137-145) mmol/L BUN 58 H (9-20) mg/dL Creatinine 1.52 H (0.66-1.25) mg/dL POC Glucose (mg/dL) 190 H (70-110) mg/dL Assessment and Plan Plan: Assessment: 1. Chronic kidney disease stage IIIb secondary to diabetic kidney disease and cardiorenal syndrome. Baseline creatinine 2-2.3. GFR at baseline. Recent UA showed no proteinuria. Ultrasound from last month showed no hydronephrosis. 2. Acute on chronic systolic CHF ejection fraction of 20% with mild to moderate tricuspid regurgitation. 3. Volume overload. Improved with diuresis. 4. Coronary artery disease. 5. Diabetes mellitus. 6. Hypervolemic hyponatremia. Also component of hypertonicity from hyperglycemia. Improved. 7. Hypertension with chronic kidney disease. Controlled. 8. Hypokalemia from diuresis. Magnesium normal. Replaced. Improved. 9. Metabolic alkalosis with respiratory compensation. Status post Diamox. Improved. 10. Acute kidney injury secondary to cardiorenal syndrome and obstructive uropathy. Creatinine peaked at 3.1 this admission and is 1.52 today. 11. Urinary retention with bilateral hydronephrosis. Has Lindo catheter. On Flomax. Urology following. Plan: Maintain Lasix. Maintain Farxiga. Strict I's and O's. Lindo per Urology recs. Low-salt diet and 1500 cc fluid restriction. Blood glucose control. Continue to monitor renal function and urine output. Repeat labs in the morning.
[2024-06-30 11:16] LABS: Glucose,Whole Blood 194 mg/dL (70-110)
--- NOTE | 2024-06-30 11:52 | P.GSCN ---
History of Present Illness Consult date: 06/30/24 Reason for Consult: Bilateral hydronephrosis History of present illness: This is a 79-year-old male admitted to the hospital with NSTEMI, urology is consulted for incidental finding of bilateral hydronephrosis. Patient does have history of recurrent kidney stones, per patient family he has recently passed a kidney stone, and has required intervention previously for his kidney stones. There is a strong family history of kidney stones. He denies any flank pain or gross hematuria. Denies any dysuria or any voiding symptoms. He underwent a renal bladder ultrasound that showed evidence of mild bilateral hydronephrosis Review of Systems ROS unobtainable: due to mental status Past Medical History Past Medical History: Atrial Fibrillation, Asthma, Coronary Artery Disease (CAD), Chest Pain / Angina, CVA/TIA, Diabetes Mellitus, Deep Vein Thrombosis (DVT), GERD/Reflux, Hyperlipidemia, Hypertension, Myocardial Infarction (NE), Osteoarthritis (OA), Renal Disease, Skin Disorder Additional Past Medical History / Comment(s): Hx CVA 11/30, had stent placed. Some trouble remembering things since. Hx left DVT. 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 Current vision problems and headaches. Psorasis. Gout. Last Myocardial Infarction Date:: 09/02 History of Any Multi-Drug Resistant Organisms: None Reported Past Surgical History: Heart Catheterization With Stent, Orthopedic Surgery Additional Past Surgical History / Comment(s): Left knee surgery, right shoulder surgery, bilateral cataract surgery. eye inplants Past Anesthesia/Blood Transfusion Reactions: No Reported Reaction, Motion Sickness Date of Last Stent Placement:: 11/2020 Past Psychological History: Anxiety, Depression Smoking Status: Never smoker Past Alcohol Use History: None Reported Past Drug Use History: None Reported - Past Family History Mother Family Medical History: Dementia Additional Family Medical History / Comment(s): at 58 years old of Alzheimer disease. Brother(s) Family Medical History: CVA/TIA, Dementia Father Family Medical History: Diabetes Mellitus Additional Family Medical History / Comment(s): of old age at 92 years old. Sister(s) Family Medical History: Cancer, Coronary Artery Disease (CAD) Additional Family Medical History / Comment(s): of lung cancer. Medications and Allergies Home Medications Medication Instructions Recorded Confirmed Type Albuterol Sulfate [Albuterol 2 puff INHALATION RT-Q4H PRN 09/02/21 06/18/24 History Sulfate Hfa] Apixaban [Eliquis] 5 mg PO BID 09/02/21 06/18/24 History Atorvastatin [Lipitor] 80 mg PO DAILY 09/02/21 06/18/24 History Citalopram Hydrobromide [CeleXA] 20 mg PO HS 09/02/21 06/18/24 History Fenofibrate,Micronized 67 mg PO DAILY 09/02/21 06/18/24 History [Fenofibrate] Omeprazole 20 mg PO HS 09/02/21 06/18/24 History allopurinoL [Zyloprim] 100 mg PO DAILY 09/02/21 06/18/24 History busPIRone HCL 10 mg PO BID 09/02/21 06/18/24 History metFORMIN HCL ER [Glucophage XR] 500 mg PO HS 09/02/21 06/18/24 History Aspirin [Children's Aspirin] 81 mg PO HS 06/13/22 06/18/24 History Isosorbide Mononitrate ER [Imdur] 30 mg PO DAILY 06/16/23 06/18/24 History Dapagliflozin Propanediol [Farxiga] 5 mg PO DAILY 12/05/23 06/18/24 History Clotrimazole Cream [Lotrimin Cream] 1 applic TOPICAL BID PRN 06/03/24 06/18/24 History Furosemide [Lasix] 40 mg PO BID #60 06/12/24 06/18/24 Rx Ipratropium-Albuterol Nebulize 3 ml INHALATION RT-TID #90 each 06/12/24 06/18/24 Rx [Duoneb 0.5 mg-3 mg/3 ml Soln] Magnesium Oxide [Mag-Ox] 400 mg PO BID #0 06/12/24 06/18/24 Rx Metoprolol Succinate (ER) [Toprol 50 mg PO DAILY #30 tab 06/12/24 06/18/24 Rx XL] Budesonide/Formoterol Fumarate 1 puff INHALATION RT-BID 06/18/24 06/18/24 History [Symbicort 160-4.5 Mcg Inhaler] predniSONE See Taper PO DIRECTED 06/18/24 06/18/24 History Allergies Allergy/AdvReac Type Severity Reaction Status Date / Time amiodarone Allergy Severe Headache, Verified 06/23/24 14:21 weakness, fatigue Surgical - Exam Vital Signs Temp Pulse Resp BP Pulse Ox 97.7 F 81 20 112/79 97 06/18/24 12:35 06/18/24 12:35 06/18/24 12:35 06/18/24 12:35 06/18/24 12:35 - General no distress, no pain - Eyes normal ocular movement, no pale - ENT normal nares, normal mucosa - Respiratory normal expansion, normal respiratory effort - Abdomen Abdomen: soft, non tender Results - Labs 06/30/24 06:37 06/30/24 06:37 Abnormal Lab Results - Last 24 Hours (Table) 06/29/24 06/29/24 06/29/24 Range/Units 11:53 16:16 20:17 WBC (3.8-10.6) k/uL RDW (11.5-15.5) % Neutrophils # (1.3-7.7) k/uL Sodium (137-145) mmol/L BUN (9-20) mg/dL Creatinine (0.66-1.25) mg/dL POC Glucose (mg/dL) 287 H 119 H 129 H (70-110) mg/dL 06/30/24 06/30/24 06/30/24 Range/Units 06:11 06:27 06:37 WBC 10.7 H (3.8-10.6) k/uL RDW 16.2 H (11.5-15.5) % Neutrophils # 8.8 H (1.3-7.7) k/uL Sodium (137-145) mmol/L BUN (9-20) mg/dL Creatinine (0.66-1.25) mg/dL POC Glucose (mg/dL) 54 L 68 L (70-110) mg/dL 06/30/24 06/30/24 06/30/24 Range/Units 06:37 08:34 11:14 WBC (3.8-10.6) k/uL RDW (11.5-15.5) % Neutrophils # (1.3-7.7) k/uL Sodium 133 L (137-145) mmol/L BUN 58 H (9-20) mg/dL Creatinine 1.52 H (0.66-1.25) mg/dL POC Glucose (mg/dL) 190 H 194 H (70-110) mg/dL Diabetes panel 06/30/24 Range/Units 06:37 Sodium 133 L (137-145) mmol/L Potassium 3.8 (3.5-5.1) mmol/L Chloride 98 (98-107) mmol/L Carbon Dioxide 28 (22-30) mmol/L BUN 58 H (9-20) mg/dL Creatinine 1.52 H (0.66-1.25) mg/dL Glucose 79 (74-99) mg/dL Calcium 8.6 (8.4-10.2) mg/dL Calcium panel 06/30/24 Range/Units 06:37 Calcium 8.6 (8.4-10.2) mg/dL Pituitary panel 06/30/24 Range/Units 06:37 Sodium 133 L (137-145) mmol/L Potassium 3.8 (3.5-5.1) mmol/L Chloride 98 (98-107) mmol/L Carbon Dioxide 28 (22-30) mmol/L BUN 58 H (9-20) mg/dL Creatinine 1.52 H (0.66-1.25) mg/dL Glucose 79 (74-99) mg/dL Calcium 8.6 (8.4-10.2) mg/dL Adrenal panel 06/30/24 Range/Units 06:37 Sodium 133 L (137-145) mmol/L Potassium 3.8 (3.5-5.1) mmol/L Chloride 98 (98-107) mmol/L Carbon Dioxide 28 (22-30) mmol/L BUN 58 H (9-20) mg/dL Creatinine 1.52 H (0.66-1.25) mg/dL Glucose 79 (74-99) mg/dL Calcium 8.6 (8.4-10.2) mg/dL Assessment and Plan Assessment: 79-year-old male strong history of kidney stones, and evidence of bilateral hydronephrosis. Creatinine is at baseline. Discussed given the strong history of kidney stones in the bilateral hydronephrosis, we will obtain a CT renal stone protocol to rule out obstructive stone as the cause of the hydro
--- NOTE | 2024-06-30 12:40 | CT ---
EXAMINATION TYPE: CT renal stones wo con CT DLP: 744.1 mGycm, Automated exposure control for dose reduction was used. DATE OF EXAM: 06/30/2024 12:32 PM COMPARISON: Renal ultrasound 08/25/2023, 05/31/2024, 09/03/2021 CLINICAL INDICATION:Male, 79 years old with history of Hydronephrosis; Hydronephrosis TECHNIQUE: Renal stone protocol CT of the abdomen and pelvis without IV or oral contrast. Lack of IV or oral contrast limits evaluation of solid and hollow organ viscera. Coronal and sagittal reformats were performed. FINDINGS: LOWER CHEST: Trace left pleural effusion. Bibasilar punctate calcific granulomas. Aortic valvular rere cifications. Coronary artery calcifications. ABDOMEN LIVER: Unremarkable noncontrast appearance GALLBLADDER AND BILE DUCTS: Unremarkable noncontrast appearance PANCREAS: Unremarkable noncontrast appearance SPLEEN: Unremarkable noncontrast appearance ADRENAL GLANDS: Unremarkable noncontrast appearance. KIDNEYS AND URETERS: No evidence of hydronephrosis or renal calculi. Nonspecific bilateral perinephri c fat stranding. PELVIS BLADDER: Nondistended with Lindo catheter in place. REPRODUCTIVE: Coarse calcifications of the prostate gland are identified. ABDOMEN & PELVIS STOMACH AND BOWEL: Stomach and duodenum are unremarkable. Redundant sigmoid colon. Distal colonic div erticulosis without evidence for acute diverticulitis. The appendix is within normal limits. Distende d sigmoid colon and rectum with stool. The rectum measures up to 7.6 cm. There is some fat stranding surrounding the sigmoid colon without wall thickening. No pneumatosis. No evidence of bowel obstructi on. PERITONEUM: No evidence of pneumoperitoneum or free fluid. VASCULATURE: Moderate atherosclerotic calcifications are present throughout the abdominal aorta and i ts branches. No evidence of aortic aneurysm. MUSCULOSKELETAL: No acute osseous abnormalities. Degenerative changes of the right SI joint with ante rior bridging. Moderate multilevel degenerative disc disease. Chronic-appearing superior endplate com pression deformity involving the L1 vertebral body. LYMPH NODES: No gross evidence for lymphadenopathy. SOFT TISSUE/ABDOMINAL WALL: Mild diffuse anasarca. IMPRESSION: 1. No evidence for hydronephrosis or nephrolithiasis. 2. Moderate amount of stool present within the sigmoid colon and rectum with inflammatory changes inv olving the sigmoid colon. Raises concern for possible stercoral colitis. Correlate clinically. 3. Trace left pleural effusion. 4. Sequelae of prior granulomatous disease. [facility], , 06/30/2024 12:38 PM
--- NOTE | 2024-06-30 13:32 | P.CONS ---
History of Present Illness - Reason for Consult Consult date: 06/30/24 Positive occult blood in stool, streaks of blood in stool Requesting physician: Autumn Adames - Chief Complaint Shortness of breath, swelling in his legs and weakness - History of Present Illness This a pleasant 79-year-old male with a significant past medical history inc luding atrial fibrillation on Eliquis, asthma, coronary artery disease, diabetes mellitus, CVA, DVT, GERD, hyperlipidemia, hypertension, acute on chronic kidney disorder who was admitted to the hospital as a NSTEMI, with acute kidney injury. Patient has been here for 11 days with multiple consultants following. Patient states yesterday he had a bowel movement and there was a little bit of streak of blood in his stool. Currently nursing was concerned and they did a stool for occult blood which was positive. Gastroenterology was consulted for blood in stool. Patient denies any history of GI bleed. States that he is straining to have bowel movements. He only had 1 episode with a little blood in his stool. Today he had a bowel movement with straining but no blood. Hemoglobin is stable at 14.3. Last colonoscopy was about 5 years ago. He denies any abdominal pain, nausea or vomiting. Review of Systems REVIEW OF SYSTEMS: CARDIOPULMONARY: No chest pain or shortness of breath. Gastrointestinal: No abdominal pain. No nausea or vomiting. No hematemesis, coffee-ground emesis. No rectal bleeding, or melena. Reported streaks of blood in stool. GENITOURINARY: No dysuria or hematuria. MUSCULOSKELETAL: Reports normal range of motion., Joint pain. SKIN: No rashes. No jaundice. ENDOCRINE: No chills, fevers. No excessive weight gain or loss. No polydipsia or polyuria. PSYCHIATRIC: Unremarkable. NEUROLOGY: No change in mental status. Denies dizziness, headache. ENT: Vision unremarkable. CONSTITUTIONAL: No recent weight loss. No fever, chills, night sweats. Past Medical History Past Medical History: Atrial Fibrillation, Asthma, Coronary Artery Disease (CAD), Chest Pain / Angina, CVA/TIA, Diabetes Mellitus, Deep Vein Thrombosis (DVT), GERD/Reflux, Hyperlipidemia, Hypertension, Myocardial Infarction (NE), Osteoarthritis (OA), Renal Disease, Skin Disorder Additional Past Medical History / Comment(s): Hx CVA 11/30, had stent placed. Some trouble remembering things since. Hx left DVT. 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 Current vision problems and headaches. Psorasis. Gout. Last Myocardial Infarction Date:: 09/02 History of Any Multi-Drug Resistant Organisms: None Reported Past Surgical History: Heart Catheterization With Stent, Orthopedic Surgery Additional Past Surgical History / Comment(s): Left knee surgery, right shoulder surgery, bilateral cataract surgery. eye inplants Past Anesthesia/Blood Transfusion Reactions: No Reported Reaction, Motion Sickness Date of Last Stent Placement:: 11/2020 Past Psychological History: Anxiety, Depression Smoking Status: Never smoker Past Alcohol Use History: None Reported Past Drug Use History: None Reported - Past Family History Mother Family Medical History: Dementia Additional Family Medical History / Comment(s): at 58 years old of Alzheimer disease. Brother(s) Family Medical History: CVA/TIA, Dementia Father Family Medical History: Diabetes Mellitus Additional Family Medical History / Comment(s): of old age at 92 years old. Sister(s) Family Medical History: Cancer, Coronary Artery Disease (CAD) Additional Family Medical History / Comment(s): of lung cancer. Medications and Allergies Home Medications Medication Instructions Recorded Confirmed Type Albuterol Sulfate [Albuterol 2 puff INHALATION RT-Q4H PRN 09/02/21 06/18/24 History Sulfate Hfa] Apixaban [Eliquis] 5 mg PO BID 09/02/21 06/18/24 History Atorvastatin [Lipitor] 80 mg PO DAILY 09/02/21 06/18/24 History Citalopram Hydrobromide [CeleXA] 20 mg PO HS 09/02/21 06/18/24 History Fenofibrate,Micronized 67 mg PO DAILY 09/02/21 06/18/24 History [Fenofibrate] Omeprazole 20 mg PO HS 09/02/21 06/18/24 History allopurinoL [Zyloprim] 100 mg PO DAILY 09/02/21 06/18/24 History busPIRone HCL 10 mg PO BID 09/02/21 06/18/24 History metFORMIN HCL ER [Glucophage XR] 500 mg PO HS 09/02/21 06/18/24 History Aspirin [Children's Aspirin] 81 mg PO HS 06/13/22 06/18/24 History Isosorbide Mononitrate ER [Imdur] 30 mg PO DAILY 06/16/23 06/18/24 History Dapagliflozin Propanediol [Farxiga] 5 mg PO DAILY 12/05/23 06/18/24 History Clotrimazole Cream [Lotrimin Cream] 1 applic TOPICAL BID PRN 06/03/24 06/18/24 History Furosemide [Lasix] 40 mg PO BID #60 06/12/24 06/18/24 Rx Ipratropium-Albuterol Nebulize 3 ml INHALATION RT-TID #90 each 06/12/24 06/18/24 Rx [Duoneb 0.5 mg-3 mg/3 ml Soln] Magnesium Oxide [Mag-Ox] 400 mg PO BID #0 06/12/24 06/18/24 Rx Metoprolol Succinate (ER) [Toprol 50 mg PO DAILY #30 tab 06/12/24 06/18/24 Rx XL] Budesonide/Formoterol Fumarate 1 puff INHALATION RT-BID 06/18/24 06/18/24 History [Symbicort 160-4.5 Mcg Inhaler] predniSONE See Taper PO DIRECTED 06/18/24 06/18/24 History Allergies Allergy/AdvReac Type Severity Reaction Status Date / Time amiodarone Allergy Severe Headache, Verified 06/23/24 14:21 weakness, fatigue Physical Exam Vitals: Vital Signs Temp Pulse Pulse Resp BP BP Pulse Ox 06/30/24 04:18 97.8 F 64 18 113/74 97 06/29/24 23:23 97.9 F 65 16 107/69 96 06/29/24 20:00 97.6 F 67 18 128/68 88/58 96 06/29/24 19:49 95 18 06/29/24 19:43 97 18 06/29/24 16:00 66 97/64 99 06/29/24 15:52 78 06/29/24 15:43 78 06/29/24 14:00 66 16 06/29/24 12:00 64 94/63 97 Intake and Output 06/29/24 06/30/24 06/30/24 22:59 06:59 14:59 Intake Total 360 240 180 Output Total 850 800 Balance -490 -560 180 Intake: Oral 360 240 180 Output: Urine 850 800 Other: Voiding Method Indwelling Catheter Indwelling Catheter # Bowel Movements 1 Weight 77.1 kg General appearance: The patient is alert, oriented, appears in no acute distress. HET: Head is normocephalic and atraumatic. Conjunctiva pink. Sclera anicteric. Neck: Supple without lymphadenopathy. Trachea midline. Heart: Regular. Lungs: Equal expansion, normal respiratory effort. Abdomen: Soft, nontender, nondistended. Skin: No rashes. No jaundice. Extremities: Normal skin color and turgor. Lower extremity edema. Neurological: No focal deficits. Alert and oriented x3. Results CBC & Chem 7: 06/30/24 06:37 06/30/24 06:37 Labs: Abnormal Lab Results - Last 24 Hours (Table) 06/29/24 06/29/24 06/29/24 Range/Units 11:53 16:16 20:17 WBC (3.8-10.6) k/uL RDW (11.5-15.5) % Neutrophils # (1.3-7.7) k/uL Sodium (137-145) mmol/L BUN (9-20) mg/dL Creatinine (0.66-1.25) mg/dL POC Glucose (mg/dL) 287 H 119 H 129 H (70-110) mg/dL 06/30/24 06/30/24 06/30/24 Range/Units 06:11 06:27 06:37 WBC 10.7 H (3.8-10.6) k/uL RDW 16.2 H (11.5-15.5) % Neutrophils # 8.8 H (1.3-7.7) k/uL Sodium (137-145) mmol/L BUN (9-20) mg/dL Creatinine (0.66-1.25) mg/dL POC Glucose (mg/dL) 54 L 68 L (70-110) mg/dL 06/30/24 06/30/24 Range/Units 06:37 08:34 WBC (3.8-10.6) k/uL RDW (11.5-15.5) % Neutrophils # (1.3-7.7) k/uL Sodium 133 L (137-145) mmol/L BUN 58 H (9-20) mg/dL Creatinine 1.52 H (0.66-1.25) mg/dL POC Glucose (mg/dL) 190 H (70-110) mg/dL Comments: Renal CAT scan reports no evidence for hydronephrosis or nephrolithiasis. Moderate amount of stool present within the sigmoid colon and rectum with inflammatory changes involving the sigmoid colon. Raises concern for possible sterile coral colitis. Correlate clinically. Trace left pleural effusion. Sequela of prior granulomatous disease. Assessment and Plan (1) Positive fecal occult blood test Narrative/Plan: 79-year-old with multiple comorbidities hospitalized for last 11 days duration. States he is issues with straining and some constipation. Yesterday had a little bit of blood in his stool. He had a renal CT done that did show significant stool burden in the sigmoid colon and rectum with inflammatory changes possible sterile coral colitis. This is likely cause of bleeding. Will treat with enemas and laxatives. Then patient will need to be on a regular bowel regimen. No plans on endoscopic evaluation at this time. Current Visit: Yes Status: Acute Code(s): R19.5 - OTHER FECAL ABNORMALITIES SNOMED Code(s): 30757140 (2) Constipation Current Visit: Yes Status: Acute Code(s): K59.00 - CONSTIPATION, UNSPECIFIED SNOMED Code(s): 64678564 (3) Chronic renal disease Current Visit: Yes Status: Acute Code(s): N18.9 - CHRONIC KIDNEY DISEASE, UNSPECIFIED SNOMED Code(s): 408610568 (4) NSTEMI (non-ST elevated myocardial infarction) Current Visit: Yes Status: Acute Code(s): I21.4 - NON-ST ELEVATION (NSTEMI) MYOCARDIAL INFARCTION SNOMED Code(s): 20443918 (5) Atrial fibrillation Current Visit: No Status: Acute Code(s): I48.91 - UNSPECIFIED ATRIAL FIBRILLATION SNOMED Code(s): 38841818 (6) Coronary artery disease Current Visit: No Status: Acute Code(s): I25.10 - ATHSCL HEART DISEASE OF [place] CORONARY ARTERY W/O ANG PCTRS SNOMED Code(s): 45788843 (7) Hyperlipidemia Current Visit: No Status: Acute Code(s): E78.5 - HYPERLIPIDEMIA, UNSPECIFIED SNOMED Code(s): 94738632 (8) Hypertension Current Visit: No Status: Acute Code(s): I10 - ESSENTIAL (PRIMARY) HYPERTENSION SNOMED Code(s): 88266453 Plan: 1. Continue symptomatic and supportive care 2. Diet as tolerated 3. Agree with enema administration, may repeat 4. Consider dose of magnesium citrate if no results with enema 5. Recommend MiraLAX daily for regular bowel regimen 6. No plans on endoscopic evaluation at this time Thank you for this consultation, we will continue to follow. Dr. Namita Wellington I agree with the dictator's note, documented as a scribe by Pat Shah.
--- NOTE | 2024-06-30 13:54 | PN ---
PROGRESS NOTE DATE OF SERVICE: 06/29/2024 HISTORY OF PRESENT ILLNESS: This 79-year-old gentleman, who was admitted with multiple complex medical issues including acute CHF, acute exacerbation, also had some confusion today. The patient also had metabolic alkalosis, oral candidiasis, and acute kidney injury also. PAST MEDICAL HISTORY: Reviewed. REVIEW OF SYSTEMS: Negative except mentioned above. CURRENT MEDICATIONS: Reviewed. PHYSICAL EXAMINATION: VITAL SIGNS: Pulse is 64, blood pressure 94/63, respiration 20. CHEST: A few scattered rhonchi. ABDOMEN: Soft. NERVOUS SYSTEM: Nonfocal. LABORATORY DATA: Creatinine is 2.19. The most recent labs are not available. ASSESSMENT: 1. Congestive heart failure acute exacerbation, ejection fraction 20%. 2. Acute on chronic kidney disease. 3. Metabolic encephalopathy. 4. Oral candidiasis. 5. Multiple complex medical issues. 6. Gait dysfunction. RECOMMENDATIONS AND DISCUSSION: Recommend to continue current management and continue symptomatic treatment. Otherwise, recommend labs. Monitor blood sugars closely. I will adjust the medications. Guarded prognosis. Discussed with the family. Further recommendations to follow. Dr. Dominguez will follow tomorrow. [id number] / VIVIANN: [id number] /
[2024-06-30 16:17] LABS: Glucose,Whole Blood 169 mg/dL (70-110)
[2024-06-30] MEDS: ZINC OXIDE PASTE (Z-GUARD) 1 APPLIC TOPICAL PRN (16:50)
--- NOTE | 2024-06-30 17:09 | P.PN ---
Progress Note - Text Progress Note Date: 06/30/24 Chief Complaint: Increased swelling, decreased activity 78-year-old male, follows with PCP Dr. Baker with a past medical history of atrial fibrillation on anticoagulation with Eliquis, coronary disease stent replacement, hypertension, hyperlipidemia, diabetes type 2 non -insulin-dependent, CKD and prior history of CVAstatus post stent trouble remembering things and prior history of left lower extremity DVT, anxiety/depression. Chronic back pain does use a brace Patient presents with increasing swelling of the legs. Finding it difficult to walk. Decreased appetite. Recently diagnosed with UTI was given antibiotic. Does use a walker. Just weak and tired. Also short of breath. Some orthopnea. June 19: Patient seen this afternoon overflowing the ER. Remains on IV Lasix drip 10 mg an hour. Making good urine output. Some improvement in breathing. Eating some. June 20: Patient remains on IV Lasix drip. Urine output. Swelling and breathing better. Did tolerate some diet. June 21: Seen by cardiology earlier today. Switched over to IV bolus Lasix 40 every 12. About 6 L negative fluid balance. Still has significant edema. Up in recliner. Eating about 50%. June 22: Patient remains on IV Lasix 40 mg every 12. IV Diamox. Negative fluid balance. Still has significant lower extremity edema. Had BREAKFAST. Up in recliner. Tired. June 23: Up in a recliner. Edema slowly coming down. About 10 L negative fluid balance. IV Lasix discontinued per nephrology. Remains on IV Diamox. Chest x-ray done today shows improved aeration. Emery wrap lower extremity. Oral intake 25 to 50%.. Patient walked about 76 feet with a rolling walker. June 24: Up in recliner. Appetite much better-eating 100%. Remains in negative fluid balance. On IV Diamox. Accu-Cheks running high. Add Levemir 16 units daily June 25: Patient blood pressure has been running on the lower side. Sometime in the 80s. Off diuretics for couple of days. Had short runs of V. tach. Which was put on Toprol-XL. By cardiology. Received Toprol-XL this afternoon. Decreased appetite. Had some abdominal pain earlier today. Abdominal x-ray unremarkable. Renal ultrasound shows mild bilateral hydronephrosis. Bilateral some shrinkage of the kidney. Further increase in creatinine. Being followed by cardiology and nephrology. 06/26/2024 Patient was seen and examined today. Patient complained of lethargic. Patient complaining of shortness of breath and congestion. Nephrology and cardiology following. Currently on IV acetazolamide for contraction alkalosis. Afebrile, heart rate 54, respiratory rate 14, blood pressure soft 92/57, saturating 97% on room air. WBCs 14.0, hemoglobin 14.9, platelet 143. Sodium 130, potassium 3.1, CO2 38, BUN 100, creatinine 2.59. AST 108 ALT 87. 06/27 Patient with no dyspnea No leg edema Patient complains from right side chest pain about 8/10 with no significant tenderness most likely musculoskeletal No other new complaint Lindo catheter is in place His back pain feels better today, it was hurting him last night Labs reviewed and all his numbers are improving. WBC back to normal at 10.4, sodium up to 133. Creatinine was at baseline and still improving down to 2.1. Liver enzymes trending down with AST 71 and ALT 73 Patient currently on Diflucan, Eliquis and aspirin Patient continued with metoprolol with coder operator recommended AICD upon discharge 06/28 Patient awake alert Is getting breathing treatment No chest pain His sugar was low overnight down to 40s, therefore we lowered his glipizide 10 mg twice daily down to 5 mg twice daily and Levemir dose 16 units down to 12 units at bedtime with close monitoring of glucose Leukocytosis and hyponatremia improving. Creatinine level is stable Liver enzymes trending down Patient remains on Eliquis Diflucan, aspirin and diabetes medication as above June 30, 2024: Patient up in the bed. Was having some lower abdominal discomfort cramping. Lindo catheter in place. Renal CT scan was ordered by urology.: Showed distended sigmoid colon and rectum with stool. Rectum measures up to 7.6 cm. Some fat stranding surrounding the sigmoid colon. DJD noted. No evidence of hydronephrosis or nephrolithiasis. Spoke to nurse and mag citrate ordered. Spoke to patient's family, including daughter at the bedside. Patient is currently full code. Patient is eating fair. Some delirium noted. Hold off discharge until patient had a good bowel movement. Lindo catheter in place Active Medications Acetaminophen (Acetaminophen Tab 500 Mg Tab) 500 mg PO Q6HR PRN PRN Reason: Fever and/ or Pain Last Admin: 06/28/24 20:21 Dose: 500 mg Hydrocodone Bitart/Acetaminophen (Hydrocodone/Apap 5-325mg 1 Each Tab) 1 each PO Q6HR PRN PRN Reason: Pain Last Admin: 06/30/24 16:10 Dose: 1 each Albuterol Sulfate (Albuterol Nebulized 2.5 Mg/3 Ml) 2.5 mg INHALATION RT-Q4H PRN PRN Reason: Shortness Of Breath Last Admin: 06/24/24 04:58 Dose: 2.5 mg Albuterol/Ipratropium (Ipratropium-Albuterol 3 Ml Neb) 3 ml INHALATION RT-TID [facility] Last Admin: 06/30/24 16:38 Dose: Not Given Allopurinol (Allopurinol 100 Mg Tab) 100 mg PO DAILY [facility] Last Admin: 06/30/24 08:59 Dose: 100 mg Apixaban (Apixaban 2.5 Mg Tablet) 2.5 mg PO BID [facility]; Protocol Last Admin: 06/30/24 08:58 Dose: 2.5 mg Artificial Tears (Artificial Tears-Hypromellose Drops 15 Ml Btl) 2 drops BOTH EYES TID PRN PRN Reason: Dry Eye(s) Aspirin (Aspirin 81 Mg) 81 mg PO HS [facility] Last Admin: 06/29/24 20:59 Dose: 81 mg Atorvastatin Calcium (Atorvastatin 40 Mg Tab) 40 mg PO HS [facility] Last Admin: 06/29/24 20:59 Dose: 40 mg Benzocaine/Menthol (Benzocaine/Menthol Lozeng 1 Each Lozenge) 1 each MUCOUS MEM Q6HR PRN PRN Reason: Sore Throat Last Admin: 06/20/24 16:40 Dose: 1 each Budesonide/Formoterol Fumarate (Symbicort 160-4.5 Mcg Inhaler) 1 puff INHALATION RT-BID [facility] Last Admin: 06/30/24 09:57 Dose: 1 puff Buspirone HCl (Buspirone Hcl 10 Mg Tab) 10 mg PO BID [facility] Last Admin: 06/30/24 08:58 Dose: 10 mg Citalopram Hydrobromide (Citalopram Hydrobromide 20 Mg Tab) 20 mg PO HS [facility] Last Admin: 06/29/24 20:59 Dose: 20 mg Clotrimazole (Clotrimazole 1% Cream 30 Gm Tube) 1 applic TOPICAL BID PRN; Pro tocol PRN Reason: Skin Irritation Last Admin: 06/21/24 02:05 Dose: 1 applic Dapagliflozin (Dapagliflozin Propanediol 5 Mg Tablet) 5 mg PO DAILY [facility] Last Admin: 06/30/24 08:58 Dose: 5 mg Dextrose/Water (Dextrose 50% Syringe 50 Ml) 25 ml IVP PER PROTOCOL PRN; Protocol PRN Reason: Hypoglycemia Dextrose/Water (Dextrose 50% Syringe 50 Ml) 50 ml IVP PER PROTOCOL PRN; Protocol PRN Reason: Hypoglycemia Fluconazole (Fluconazole 100 Mg Tab) 100 mg PO DAILY [facility]; Protocol Last Admin: 06/30/24 08:58 Dose: 100 mg Furosemide (Furosemide 40 Mg Tab) 40 mg PO DAILY [facility] Last Admin: 06/30/24 08:59 Dose: 40 mg Glipizide (Glipizide 5 Mg Tab) 5 mg PO AC-BID [facility] Last Admin: 06/30/24 08:58 Dose: 5 mg Insulin Aspart (Insulin Aspart (Novolog) 100 Unit/Ml Vial) 0 unit SQ ACHS [facility]; Protocol Last Admin: 06/30/24 12:43 Dose: 1 unit Insulin Aspart (Insulin Aspart (Novolog) 100 Unit/Ml Vial) 4 unit SQ AC-TID [facility] Last Admin: 06/30/24 12:42 Dose: 4 unit Insulin Detemir (Insulin Detemir (Levemir) 100 Unit/Ml Syr) 12 unit SQ DAILY@0700 [facility] Last Admin: 06/30/24 08:58 Dose: 12 unit Isosorbide Mononitrate (Isosorbide Mononitrate Er 30 Mg Tab.Er.24h) 30 mg PO DAILY [facility] Last Admin: 06/30/24 08:58 Dose: 30 mg Magnesium Oxide (Magnesium Oxide 400 Mg Tab) 400 mg PO BID [facility] Last Admin: 06/30/24 08:58 Dose: 400 mg Metoprolol Succinate (Metoprolol Succinate (Er) 50 Mg Tab.Er.24h) 50 mg PO DAILY [facility] Last Admin: 06/30/24 08:59 Dose: 50 mg Miscellaneous Information (Potassium Replacement Protocol 1 Each Misc) 1 each MISCELLANE DAILY PRN; Protocol PRN Reason: Per Protocol Nitroglycerin (Nitroglycerin Sl Tabs 0.4 Mg Tab) 0.4 mg SUBLINGUAL Q5M PRN PRN Reason: Chest Pain Pantoprazole Sodium (Pantoprazole 40 Mg Tablet) 40 mg PO HS [facility] Last Admin: 06/29/24 20:59 Dose: 40 mg Petrolatum (Zinc Oxide Paste (Z-Guard) 1 Applic) 1 applic TOPICAL Q2HR PRN; Protocol PRN Reason: Wound Healing Last Admin: 06/30/24 16:50 Dose: 1 applic Polyethylene Glycol (Polyethylene Glycol 3350 17 Gm Powd.Pack) 17 gm PO DAILY [facility] Senna (Sennosides 8.6 Mg Tab) 8.6 mg PO BID [facility] Last Admin: 06/30/24 08:58 Dose: 8.6 mg Tamsulosin HCl (Tamsulosin 0.4 Mg Cap.Er.24h) 0.4 mg PO PC-SUPPER [facility] Last Admin: 06/29/24 17:35 Dose: 0.4 mg 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 . Denies any history of smoking or alcohol. Physical examination: VITAL SIGNS: 97.7, 76, 18, 99 x 61, 100% room air GENERAL: Reclining in bed, eating lunch EYES: Pupils equal. Conjunctiva normal. HEENT: External appearance of nose and ears normal, oral cavity-white spots NECK: JVD not raised; masses not palpable. HEART: First and second heart sounds are normal; edema decreased LUNGS: Respiratory rate normal decreased breath sounds, ABDOMEN: Soft, nontender, liver spleen not palpable, no masses palpable. Lindo catheter PSYCH: Answering questions, sometimes forgetful MUSCULOSKELETAL:No Clubbing/cyanosis;muscles-grossly intact Investigation: Renal CT [June 30] dilated rectum and sigmoid with stool. DJD. No hydronephrosis no renal stones June 30: Sodium 133 potassium 3.8 BUN 58 creatinine 1.52 white count 10.7 hemoglobin 14.3 platelets 167 June 25: Sodium 133 potassium 3.7 bicarb 35 BUN 109 creatinine 3.13 white count 16.9 hemoglobin 15.8 platelets 180 June 24: Sodium 128 potassium 3.6 bicarb 38 BUN 102 creatinine 2.86 June 23: Sodium 134 potassium 4.1 BUN 102 creatinine 2.85 June 22: Sodium 131 potassium 3.4 BUN 99 creatinine 2.55 bicarb 40 AST 86 ALT 127 June 21: Sodium 133 potassium 3.9 bicarb 41 BUN 100 creatinine 2.27 June 20: Potassium 3.3 BUN 100 creatinine 2.21 June 18: White count 17 hemoglobin 15.1 platelets 197 sodium 132 potassium 4.3 BUN 102 creatinine 2.3 AST 149 ALT 187 Troponin I 0.4, 0.4 proBNP 88591 EKG tracing personally reviewed by me-atrial fibrillation. Right bundle dannielle block pattern. ST-T wave changes. Chest x-ray film personally reviewed by me-cardiomegaly. Pulm edema. Pleural effusion Recent labs June 12: Potassium 4.2 BUN 85 creatinine 2.36 Renal ultrasound: No evidence of obstructive uropathy or renal calculi 2D echocardiogram: EF 20%: Mild to moderate TR. Assessment and plan: -Acute on chronic congestive heart failure from systolic dysfunction EF 20%. Ischemic cardiomyopathy: Improving Initially Lasix drip followed by bolus Lasix,-discontinued. Diamox IV Strict I's and O's. Fluid restriction. Over 10 L negative fluid balance Currently on Lasix 40 mg daily Cardiology following -Metabolic alkalosis from volume contraction from diuresis: Improved Received Diamox IV -Oral candidiasis Stop Diflucan today # Acute kidney injury ATN secondary to hypotension-cardiorenal syndrome.: Improvement Creatinine had peaked at 3.13. Now down to 1.52 -Severe constipation with dilated rectum and sigmoid Mag citrate ordered -Troponinemia is likely secondary to chronic kidney disease. No ACS #CKD stage IIIb:Likely nephrosclerosis, baseline creatinine 1.8-2 mg/dL. Follow creatinine #Persistent atrial fibrillation: Eliquis, Toprol-XL 50 mg a day Cardiology following -Run of V. tach Toprol -Hepatitis picture with intrahepatic cholestasis. Possibly with from CHF Hold Lipitor -Diabetes mellitus type 2, uncontrolled with hyperglycemia On Farxiga. . Add Levemir 16 units daily. -Type II lactic acidosis. No evidence of infection -Troponinemia: From underlying CKD. No ACS #CAD with prior stent in November 2020: Beta-jairo, aspirin #Intermittent asthma: DuoNeb. -Delirium, multifactorial including severe constipation #Depression: Celexa 20 mg nightly and BuSpar 10 mg twice daily #Essential hypertension: Beta-jairo #Hyperlipidemia: Lipitor 80 mg and fenofibrate 54 mg p.o. daily-held currently because of elevated liver enzymes -Full code Ordered mag citrate. Will also add Metamucil. Discussed with patient's family at the bedside. Discussed with the family to discuss about code. Hold discharge today. Past Medical History Past Medical History: Atrial Fibrillation, Asthma, Coronary Artery Disease (CAD), Chest Pain / Angina, CVA/TIA, Diabetes Mellitus, Deep Vein Thrombosis (DVT), GERD/Reflux, Hyperlipidemia, Hypertension, Myocardial Infarction ([place]), Osteoarthritis (OA), Renal Disease, Skin Disorder Additional Past Medical History / Comment(s): Hx CVA 11/30, had stent placed. Some trouble remembering things since. Hx left DVT. 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 Current vision problems and headaches. Psorasis. Gout. Last Myocardial Infarction Date:: 09/02 History of Any Multi-Drug Resistant Organisms: None Reported Past Surgical History: Heart Catheterization With Stent, Orthopedic Surgery Additional Past Surgical History / Comment(s): Left knee surgery, right shoulder surgery, bilateral cataract surgery. eye inplants Past Anesthesia/Blood Transfusion Reactions: No Reported Reaction, Motion Sickness Date of Last Stent Placement:: 11/2020 Past Psychological History: Anxiety, Depression Smoking Status: Never smoker Past Alcohol Use History: None Reported Past Drug Use History: None Reported
[2024-06-30] MEDS: MAGNESIUM CITRATE 296 ML BOTTLE PO ONE (17:41)
[2024-06-30] MEDS: PSYLLIUM HUSK 100% 6 GM PACKET PO SCH (17:44)
[2024-06-30 20:08] LABS: Glucose,Whole Blood 59 mg/dL (70-110)
[2024-06-30 20:30] LABS: Glucose,Whole Blood 52 mg/dL (70-110)
[2024-06-30] MEDS: DEXTROSE 50% SYRINGE 50 ML IVP PRN (20:32)
[2024-06-30 21:02] LABS: Glucose,Whole Blood 184 mg/dL (70-110)
[2024-07-01 04:46] VITALS: RESP 16
[2024-07-01 05:43] LABS: Glucose,Whole Blood 65 mg/dL (70-110)
[2024-07-01 05:59] LABS: Glucose,Whole Blood 93 mg/dL (70-110)
[2024-07-01 07:13] LABS: ALT 94 U/L (4-49); AST 81 U/L (17-59); African American GFR (CKD) 47 (>60 ml/min/1.73 sqM); Albumin 3.3 g/dL (3.5-5.0); Alkaline Phosphatase 186 U/L (38-126); Anion Gap 7 mmol/L; Blood Urea Nitrogen 59 mg/dL (9-20); Carbon Dioxide 34 mmol/L (22-30); Chloride 93 mmol/L (98-107); Glucose 77 mg/dL (74-99); Magnesium 2.4 mg/dL (1.6-2.3); Non-African American GFR(CKD) 41 (>60 ml/min/1.73 sqM); Potassium 4.6 mmol/L (3.5-5.1); Sodium 134 mmol/L (137-145); Total Bilirubin 1.4 mg/dL (0.2-1.3); Total Protein 6.2 g/dL (6.3-8.2)
[2024-07-01 07:54] LABS: Glucose,Whole Blood 97 mg/dL (70-110)
[2024-07-01] MEDS: polyethylene glycoL 3350 17 GM POWD.PACK PO SCH (09:53)
--- NOTE | 2024-07-01 10:38 | P.PN ---
Subjective Patient is seen in follow-up for chronic kidney disease. Renal function stable. Nonoliguric. Lindo catheter removed. Has been voiding on his own. Denies chest pain or shortness of breath. Vital signs are stable. General: No acute distress. HEENT: Head exam is unremarkable. On room air. LUNGS: Scattered rhonchi. HEART: Rate and Rhythm are regular. ABDOMEN: Nontender. EXTREMITITES: Trace edema. Lower extremities wrapped. Objective - Vital Signs Vital signs: Vital Signs Temp 97.8 F 07/01/24 08:00 Pulse 61 07/01/24 08:00 Resp 16 07/01/24 08:00 BP 120/73 07/01/24 08:00 Pulse Ox 98 07/01/24 08:00 FiO2 Intake & Output 06/30/24 07/01/24 07/01/24 18:59 06:59 18:59 Intake Total 360 1106 10 Output Total 850 550 Balance -490 556 10 Weight 89.5 kg Intake: IV 10 Invasive Line 5 10 Oral 360 1106 Output: Urine 850 550 Other: Voiding Method Indwelling Catheter Indwelling Catheter # Bowel Movements 2 - Labs CBC & Chem 7: 06/30/24 06:37 07/01/24 06:37 Labs: Abnormal Lab Results - Last 24 Hours (Table) 06/30/24 06/30/24 06/30/24 Range/Units 11:14 16:15 20:07 Sodium (137-145) mmol/L Chloride (98-107) mmol/L Carbon Dioxide (22-30) mmol/L BUN (9-20) mg/dL Creatinine (0.66-1.25) mg/dL POC Glucose (mg/dL) 194 H 169 H 59 L (70-110) mg/dL Magnesium (1.6-2.3) mg/dL Total Bilirubin (0.2-1.3) mg/dL AST (17-59) U/L ALT (4-49) U/L Alkaline Phosphatase (38-126) U/L Total Protein (6.3-8.2) g/dL Albumin (3.5-5.0) g/dL 06/30/24 06/30/24 07/01/24 Range/Units 20:28 21:01 05:42 Sodium (137-145) mmol/L Chloride (98-107) mmol/L Carbon Dioxide (22-30) mmol/L BUN (9-20) mg/dL Creatinine (0.66-1.25) mg/dL POC Glucose (mg/dL) 52 L 184 H 65 L (70-110) mg/dL Magnesium (1.6-2.3) mg/dL Total Bilirubin (0.2-1.3) mg/dL AST (17-59) U/L ALT (4-49) U/L Alkaline Phosphatase (38-126) U/L Total Protein (6.3-8.2) g/dL Albumin (3.5-5.0) g/dL 07/01/24 Range/Units 06:37 Sodium 134 L (137-145) mmol/L Chloride 93 L (98-107) mmol/L Carbon Dioxide 34 H (22-30) mmol/L BUN 59 H (9-20) mg/dL Creatinine 1.60 H (0.66-1.25) mg/dL POC Glucose (mg/dL) (70-110) mg/dL Magnesium 2.4 H (1.6-2.3) mg/dL Total Bilirubin 1.4 H (0.2-1.3) mg/dL AST 81 H (17-59) U/L ALT 94 H (4-49) U/L Alkaline Phosphatase 186 H (38-126) U/L Total Protein 6.2 L (6.3-8.2) g/dL Albumin 3.3 L (3.5-5.0) g/dL Assessment and Plan Plan: Assessment: 1. Chronic kidney disease stage IIIb secondary to diabetic kidney disease and cardiorenal syndrome. Baseline creatinine 2-2.3. GFR at baseline. Recent UA showed no proteinuria. Ultrasound from last month showed no hydronephrosis. 2. Acute on chronic systolic CHF ejection fraction of 20% with mild to moderate tricuspid regurgitation. 3. Volume overload. Improved with diuresis. 4. Coronary artery disease. 5. Diabetes mellitus. 6. Hypervolemic hyponatremia. Also component of hypertonicity from hyperglycemia. Improved. 7. Hypertension with chronic kidney disease. Controlled. 8. Hypokalemia from diuresis. Magnesium normal. Replaced. Improved. 9. Metabolic alkalosis with respiratory compensation. Status post Diamox. 10. Acute kidney injury secondary to cardiorenal syndrome and obstructive uropathy. Creatinine peaked at 3.1 this admission and is 1.6 today. 11. Urinary retention with bilateral hydronephrosis. Lindo catheter removed. On Flomax. Urology following. CT scan showed no evidence of hydronephrosis. Plan: Maintain Lasix. Maintain Farxiga. Strict I's and O's. Low-salt diet and 1500 cc fluid restriction. Blood glucose control. Continue to monitor renal function and urine output. Repeat labs in the morning. Stop magnesium supplementation.
[2024-07-01 11:28] LABS: Glucose,Whole Blood 75 mg/dL (70-110)
[2024-07-01] MEDS: MAGNESIUM CITRATE 296 ML BOTTLE PO STA (11:56)
[2024-07-01 11:59] VITALS: BP 115/76; TEMP 98
[2024-07-01 12:01] VITALS: PULSE 80
--- NOTE | 2024-07-01 12:10 | P.PN ---
Subjective Progress Note Date: 06/30/24 HISTORY OF PRESENT ILLNESS: This is a 78-year-old male patient of Dr. Juan Wellington with past medical history of paroxysmal atrial fibrillation, coronary artery disease on medical therapy, hypertension, hyperlipidemia, diabetes mellitus type 2, chronic kidney disease stage IIIb, family history of premature coronary artery disease. We have been asked to evaluate the patient for NSTEMI. Patient had a recent hospitalization 06/03 - 06/12 at which time he was seen by cardiology for persistent atrial fibrillation flat troponin secondary to hypoperfusion. Patient presented to the emergency center due to shortness of breath along with leg swelling. Symptoms have been going on for the past week. He has been taking his medications as directed at home. Blood pressure 107/74, heart rate 98, pulse ox 96% on 2 L nasal cannula. Patient has been started on Lasix drip and he is followed by nephrology. EKG: Atrial fibrillation with right bundle branch block Chest x-ray: Stable bilateral lower lobe infiltrate and small pleural effusion. Laboratory studies: WBC 17, hemoglobin 15.1. INR 1.5. Sodium 131, CO2 33, BUN 102, creatinine 2.21. Lactic acid 2.7. Troponin 0.47, 0.473, 0.468. proBNP 16,700. Home cardiac medications: Eliquis 5 mg twice daily, aspirin 81 mg daily, atorvastatin 80 mg daily, Farxiga 5 mg daily, fenofibrate 67 mg daily, Lasix 40 mg twice daily, Imdur 30 mg daily, lisinopril 10 mg at bedtime, magnesium oxide 800 mg twice daily, metoprolol succinate 50 mg daily. Lexiscan Cardiolite stress test performed 10/04/2023 in the office revealed negative stress test by EKG criteria. Abnormal nuclear scan showing evidence of inferior lateral myocardial infarction with LV systolic dysfunction and EF 40% without evidence of ischemia. Cardiac catheterization performed 09/02/2021 revealed moderate stenosis involving the right coronary artery. Echocardiogram performed 06/04/2024 revealed EF 25 %. Four-chamber enlargement. Mild mitral regurgitation. Mild to moderate tricuspid regurgitation, aortic valve sclerosis with calcification 06/22/2024 Patient examined this morning. Patient is sitting up in the chair. Patient currently denies chest pain or pressure. Reports shortness of breath is improving. He remains on IV Lasix and IV Diamox. Creatinine today 2.5. Patient's blood pressures have been low with a systolic in the 80s90s. 06/23/2024 Patient examined this morning at the bedside. Patient currently denies chest pain or pressure. He reports mild shortness of breath. He is maintained on IV diuretics per nephrology. Creatinine today 2.85. Patient is having runs of nonsustained ventricular tachycardia. Patient is asymptomatic with these episodes. Blood pressure is stable. Most recent reading 107/72. Addendum entered and electronically signed by Sobia Yeager NP-C 06/23/24 14:16: Notified by patients nurse that family arrived and stated patient is unable to take amio. Apparently, he was placed on this recently for afib rvr and had multiple adverse effects. However, this was never documented in the EMR as an allergy. Patients nurse states that patient is now lethargic and has a headache. Will DC amio. 06/24/2024 Patient examined this morning the bedside. He is sitting in the chair. Patient currently denies chest pain or pressure. He continues to report shortness of breath. No further episodes of ventricular tachycardia. His beta-jairo was increased yesterday. Blood pressure stable. Most recent reading 95/60. 06/25/2024 Patient examined this morning at the bedside. Patient currently denies chest p ain or pressure. He reports improvement in his shortness of breath. Creatinine today 3.13. Vital signs are stable. No further episodes of ventricular tachycardia. 06/26/2024 Patient examined this morning at the bedside. Patient denies any chest pain or pressure. He states his shortness of breath is improving. He does continue to report a cough. Nursing reports patient had a 6 and 9 beat run of V. tach this morning. Potassium was 3.1 and is currently being replaced. Magnesium 2.4. Patient remains on metoprolol. Creatinine 2.59. He remains off diuretics. Nephrology is following. 06/27/2024 Patient examined this morning at the bedside. Patient currently denies chest pain or pressure. Patient states he feels like his shortness of breath is getting worse compared to yesterday. Creatinine today is 2.19. He remains off diuretics. Potassium today 3.7. 06/28/2024 Patient examined this morning at the bedside. Patient currently denies chest pain or pressure. He states his breathing feels about the same today. Vital signs are stable. Patient did have an episode of hypoglycemia this morning. Nephrology is following and managing diuretics. 06/29/2024 Patient seen and examined. He is complaining of congestion in his chest today. Otherwise he is feeling okay. A little edema, no palpitations now but he has had yesterday. Daughter is at the bedside and concerned that he has had some hallucinations or confusion today. Plan is for discharge to [facility] in [facility]. Blood pressure 106/60, heart rate 60, pulse ox 98% on room air. 06/30/24 Patient seen and examined. He is complaining of swelling in his hands and not feeling well in general. He also complains of wheezing. Patient is not noted to have any concerning edema. He is currently on oral Lasix 40 mg daily per nephrology. Repeat blood work reveals hemoglobin 14.3, BUN 58 creatinine 1.52. Blood pressure 105/59, heart rate 77, pulse ox 90% on room air. PHYSICAL EXAM: VITAL SIGNS: Reviewed. GENERAL: Well-developed in no acute distress. NECK: Supple. No JVD or thyromegaly LUNGS: Respirations even and unlabored. Lungs diminished bilaterally. HEART: Irregular rate and rhythm. S1 and S2 heard. EXTREMITIES: No clubbing or cyanosis. Peripheral pulses intact. No lower extremity edema noted. ASSESSMENT: Chronically elevated troponin due to poor renal clearance, less likely ACS Acute on chronic heart failure with reduced EF Acute on chronic kidney disease Hypotension, improving Ischemic cardiomyopathy, EF 25% Nonsustained ventricular tachycardia Permanent atrial fibrillation Coronary artery disease Hypertension Hyperlipidemia Diabetes mellitus type 2 Family history of premature coronary artery disease Obstructive uropathy with bilateral mild hydronephrosis PLAN: Continue current cardiac medications: Eliquis 2.5 mg twice daily, aspirin 81 mg daily, atorvastatin 40 mg at bedtime, Farxiga 5 mg daily, Imdur 30 mg daily, magnesium oxide 400 mg twice daily, Toprol-XL 50 mg daily Continue to monitor kidney function. Diuretic management per nephrology, currently at oral Lasix 40 mg daily. Continue telemetry monitoring Continue current dose of metoprolol succinate 50 mg daily. Do not decrease dose due to patient having runs of ventricular tachycardia. Patient unable to tolerate amiodarone Recommend eventual AICD implantation Further recommendations pending patient course Nurse practitioner note has been reviewed by physician. Signing provider agrees with the documented findings, assessment, and plan of care documented by [employer] as a scribe. Objective - Vital Signs Vital signs: Vital Signs Temp 97.8 F 06/30/24 04:18 Pulse 72 06/30/24 10:08 Resp 18 06/30/24 04:18 BP 113/74 06/30/24 04:18 Pulse Ox 97 06/30/24 04:18 FiO2 Intake & Output 06/29/24 06/30/24 06/30/24 18:59 06:59 18:59 Intake Total 840 240 180 Output Total 850 800 Balance -10 -560 180 Weight 88 kg 77.1 kg Intake: Oral 840 240 180 Output: Urine 850 800 Other: Voiding Method Indwelling Catheter Indwelling Catheter # Bowel Movements 1 - Labs CBC & Chem 7: 06/30/24 06:37 07/01/24 06:37 Labs: Abnormal Lab Results - Last 24 Hours (Table) 06/29/24 06/29/24 06/29/24 Range/Units 11:53 16:16 20:17 WBC (3.8-10.6) k/uL RDW (11.5-15.5) % Neutrophils # (1.3-7.7) k/uL Sodium (137-145) mmol/L BUN (9-20) mg/dL Creatinine (0.66-1.25) mg/dL POC Glucose (mg/dL) 287 H 119 H 129 H (70-110) mg/dL 06/30/24 06/30/24 06/30/24 Range/Units 06:11 06:27 06:37 WBC 10.7 H (3.8-10.6) k/uL RDW 16.2 H (11.5-15.5) % Neutrophils # 8.8 H (1.3-7.7) k/uL Sodium (137-145) mmol/L BUN (9-20) mg/dL Creatinine (0.66-1.25) mg/dL POC Glucose (mg/dL) 54 L 68 L (70-110) mg/dL 06/30/24 06/30/24 Range/Units 06:37 08:34 WBC (3.8-10.6) k/uL RDW (11.5-15.5) % Neutrophils # (1.3-7.7) k/uL Sodium 133 L (137-145) mmol/L BUN 58 H (9-20) mg/dL Creatinine 1.52 H (0.66-1.25) mg/dL POC Glucose (mg/dL) 190 H (70-110) mg/dL
--- NOTE | 2024-07-01 12:44 | P.DS ---
Providers Date of admission: 06/18/24 16:01 Expected date of discharge: 07/01/24 Attending physician: Vidal Dominguez Consults: 06/18/24 15:50 Consult Physician Urgent Consulting Provider: [facility] Consult Reason/Comments: NSTEMI Do you want consulting provider notified?: Yes 06/18/24 15:55 Consult Physician Urgent Consulting Provider: Fred De La Vega Consult Reason/Comments: Uremia Do you want consulting provider notified?: Yes 06/29/24 08:24 Consult Physician Urgent Consulting Provider: Zacarias Miranda Consult Reason/Comments: hydronephrosis Do you want consulting provider notified?: Yes 06/29/24 22:52 Consult Physician Routine Consulting Provider: Rohini Wellington Consult Reason/Comments: + occult stool. Blood streaks visible in stool on eliquis Do you want consulting provider notified?: Yes Primary care physician: [facility] Course: Chief Complaint: Increased swelling, decreased activity 78-year-old male, follows with PCP Dr. Baker with a past medical history of atrial fibrillation on anticoagulation with Eliquis, coronary disease stent replacement, hypertension, hyperlipidemia, diabetes type 2 non-insulin- dependent, CKD and prior history of CVAstatus post stent trouble remembering things and prior history of left lower extremity DVT, anxiety/depression. Chronic back pain does use a brace Patient presents with increasing swelling of the legs. Finding it difficult to walk. Decreased appetite. Recently diagnosed with UTI was given antibiotic. Does use a walker. Just weak and tired. Also short of breath. Some orthopnea. June 19: Patient seen this afternoon overflowing the ER. Remains on IV Lasix drip 10 mg an hour. Making good urine output. Some improvement in breathing. Eating some. June 20: Patient remains on IV Lasix drip. Urine output. Swelling and breathing better. Did tolerate some diet. June 21: Seen by cardiology earlier today. Switched over to IV bolus Lasix 40 every 12. About 6 L negative fluid balance. Still has significant edema. Up in recliner. Eating about 50%. June 22: Patient remains on IV Lasix 40 mg every 12. IV Diamox. Negative fluid balance. Still has significant lower extremity edema. Had BREAKFAST. Up in recliner. Tired. June 23: Up in a recliner. Edema slowly coming down. About 10 L negative fluid balance. IV Lasix discontinued per nephrology. Remains on IV Diamox. Chest x-ray done today shows improved aeration. Emery wrap lower extremity. Oral intake 25 to 50%.. Patient walked about 76 feet with a rolling walker. June 24: Up in recliner. Appetite much better-eating 100%. Remains in negative fluid balance. On IV Diamox. Accu-Cheks running high. Add Levemir 16 units daily June 25: Patient blood pressure has been running on the lower side. Sometime in the 80s. Off diuretics for couple of days. Had short runs of V. tach. Which was put on Toprol-XL. By cardiology. Received Toprol-XL this afternoon. Decreased appetite. Had some abdominal pain earlier today. Abdominal x-ray unremarkable. Renal ultrasound shows mild bilateral hydronephrosis. Bilateral some shrinkage of the kidney. Further increase in creatinine. Being followed by cardiology and nephrology. 06/26/2024 Patient was seen and examined today. Patient complained of lethargic. Patient complaining of shortness of breath and congestion. Nephrology and cardiology following. Currently on IV acetazolamide for contraction alkalosis. Afebrile, heart rate 54, respiratory rate 14, blood pressure soft 92/57, saturating 97% on room air. WBCs 14.0, hemoglobin 14.9, platelet 143. Sodium 130, potassium 3.1, CO2 38, BUN 100, creatinine 2.59. AST 108 ALT 87. 06/27 Patient with no dyspnea No leg edema Patient complains from right side chest pain about 8/10 with no significant tenderness most likely musculoskeletal No other new complaint Lindo catheter is in place His back pain feels better today, it was hurting him last night Labs reviewed and all his numbers are improving. WBC back to normal at 10.4, sodium up to 133. Creatinine was at baseline and still improving down to 2.1. 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 Creatinine level is stable Liver enzymes trending down Patient remains on Eliquis Diflucan, aspirin and diabetes medication as above June 30, 2024: Patient up in the bed. Was having some lower abdominal discomfort cramping. Lindo catheter in place. Renal CT scan was ordered by urology.: Showed distended sigmoid colon and rectum with stool. Rectum measures up to 7.6 cm. Some fat stranding surrounding the sigmoid colon. DJD noted. No evidence of hydronephrosis or nephrolithiasis. Spoke to nurse and mag citrate ordered. Spoke to patient's family, including daughter at the bedside. Patient is currently full code. Patient is eating fair. Some delirium noted. Hold off discharge until patient had a good bowel movement. Lindo catheter in place July 01, 2024: Patient received mag citrate Metamucil yesterday. Had some bowel movement overnight. Not too much. Today another mag citrate was ordered. Patient is currently having a bowel movement. Lindo catheter was discontinued this morning. Awaited to make urine. Oral intake fair. Will going to rehab today. Discussed with patient, nurse, social economist. 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 . Denies any history of smoking or alcohol. Physical examination: VITAL SIGNS: 98, 67, 16, 115/76, 99% room air GENERAL: Reclining in bed, comfortable EYES: Pupils equal. Conjunctiva normal. HEENT: External appearance of nose and ears normal, oral cavity-white spots NECK: JVD not raised; masses not palpable. HEART: First and second heart sounds are normal; edema decreased LUNGS: Respiratory rate normal decreased breath sounds, ABDOMEN: Soft, nontender, liver spleen not palpable, no masses palpable. Lindo catheter-discontinued PSYCH: Answering questions, sometimes forgetful MUSCULOSKELETAL:No Clubbing/cyanosis;muscles-grossly intact Investigation: July 01: Sodium 134 potassium 4.6 BUN 59 creatinine 1.6 AST [address] [June 30] dilated rectum and sigmoid with stool. DJD. No hydronephrosis no renal stones June 30: Sodium 133 potassium 3.8 BUN 58 creatinine 1.52 white count 10.7 hemoglobin 14.3 platelets 167 June 20: Potassium 3.3 BUN 100 creatinine 2.21 June 18: White count 17 hemoglobin 15.1 platelets 197 sodium 132 potassium 4.3 BUN 102 creatinine 2.3 AST 149 ALT 187 Troponin I 0.4, 0.4 proBNP 06015 EKG tracing personally reviewed by me-atrial fibrillation. Right bundle dannielle block pattern. ST-T wave changes. Chest x-ray film personally reviewed by me-cardiomegaly. Pulm edema. Pleural e ffusion Recent labs June 12: Potassium 4.2 BUN 85 creatinine 2.36 Renal ultrasound: No evidence of obstructive uropathy or renal calculi 2D echocardiogram: EF 20%: Mild to moderate TR. Assessment and plan: -Acute on chronic congestive heart failure from systolic dysfunction EF 20%. Ischemic cardiomyopathy: Improving Initially Lasix drip followed by bolus Lasix,-discontinued. Diamox IV Currently on Lasix 40 mg daily Cardiology following -Metabolic alkalosis from volume contraction from diuresis: Improved Received Diamox IV -Oral candidiasis Diflucan dose completed # Acute kidney injury ATN secondary to hypotension-cardiorenal syndrome.: Improvement Creatinine had peaked at 3.13. Now down to 1.52 -Severe constipation with dilated rectum and sigmoid: Responding Mag citrate ordered -Troponinemia is likely secondary to chronic kidney disease. No ACS #CKD stage IIIb:Likely nephrosclerosis, baseline creatinine 1.8-2 mg/dL. Follow creatinine #Persistent atrial fibrillation: Eliquis, Toprol-XL 50 mg a day Cardiology following -Run of V. tach Toprol -Hepatitis picture with intrahepatic cholestasis. Possibly with from CHF: Better Lipitor being resumed at 40 mg nightly -Diabetes mellitus type 2, uncontrolled with hyperglycemia On Farxiga. . Glipizide 5 mg twice daily added. Follow Accu-Cheks -Type II lactic acidosis. No evidence of infection -Troponinemia: From underlying CKD. No ACS #CAD with prior stent in November 2020: Beta-jairo, aspirin #Intermittent asthma: DuoNeb. -Delirium, multifactorial including severe constipation #Depression: Celexa 20 mg nightly and BuSpar 10 mg twice daily #Essential hypertension: Beta-jairo #Hyperlipidemia: Lipitor 80 mg and fenofibrate 54 mg p.o. daily-held currently because of elevated liver enzymes -Full code Disposition: [facility] for rehab Labs: CBC CMP 5 days Follow-up: Dr. De La Vega from nephrology-[address] Ochoa from cardiology-[address] Fernando Baker-3 weeks Past Medical History Past Medical History: Atrial Fibrillation, Asthma, Coronary Artery Disease (CAD), Chest Pain / Angina, CVA/TIA, Diabetes Mellitus, Deep Vein Thrombosis (DVT), GERD/Reflux, Hyperlipidemia, Hypertension, Myocardial Infarction ([place]), Osteoarthritis (OA), Renal Disease, Skin Disorder Additional Past Medical History / Comment(s): Hx CVA 11/30, had stent placed. Some trouble remembering things since. Hx left DVT. 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 Current vision problems and headaches. Psorasis. Gout. Last Myocardial Infarction Date:: 09/02 History of Any Multi-Drug Resistant Organisms: None Reported Past Surgical History: Heart Catheterization With Stent, Orthopedic Surgery Additional Past Surgical History / Comment(s): Left knee surgery, right shoulder surgery, bilateral cataract surgery. eye inplants Past Anesthesia/Blood Transfusion Reactions: No Reported Reaction, Motion Sickness Date of Last Stent Placement:: 11/2020 Past Psychological History: Anxiety, Depression Smoking Status: Never smoker Past Alcohol Use History: None Reported Past Drug Use History: None Reported Plan - Discharge Summary Discharge Rx Participant: No New Discharge Prescriptions: New Tamsulosin [Flomax] 0.4 mg PO PC-SUPPER cap glipiZIDE [Glucotrol] 5 mg PO AC-BID tab Artificial Tears-Hypromellose [Artificial Tear Drops] 2 drops BOTH EYES TID PRN ml PRN Reason: Dry Eye(S) Atorvastatin [Lipitor] 40 mg PO HS tab Psyllium Husk 100% [Metamucil Packet] 6 gm PO BID packet Nitroglycerin Sl Tabs [Nitrostat] 0.4 mg SUBLINGUAL Q5M PRN tab PRN Reason: Chest Pain INSULIN ASPART (NovoLOG) [NovoLOG (formulary)] 0 unit SQ ACHS each Acetaminophen Tab [Tylenol Tab] 500 mg PO Q4H PRN #1 tablet PRN Reason: Pain Continue allopurinoL [Zyloprim] 100 mg PO DAILY Isosorbide Mononitrate ER [Imdur] 30 mg PO DAILY Clotrimazole Cream [Lotrimin Cream] 1 applic TOPICAL BID PRN PRN Reason: Skin Irritation Ipratropium-Albuterol Nebulize [Duoneb 0.5 mg-3 mg/3 ml Soln] 3 ml INHALATION RT-TID #90 each Budesonide/Formoterol Fumarate [Symbicort 160-4.5 Mcg Inhaler] 1 puff INHALATION RT-BID Apixaban [Eliquis] 5 mg PO BID busPIRone HCL 10 mg PO BID Citalopram Hydrobromide [CeleXA] 20 mg PO HS Albuterol Sulfate [Albuterol Sulfate Hfa] 2 puff INHALATION RT-Q4H PRN PRN Reason: Shortness Of Breath Omeprazole 20 mg PO HS Aspirin [Children's Aspirin] 81 mg PO HS Dapagliflozin Propanediol [Farxiga] 5 mg PO DAILY Metoprolol Succinate (ER) [Toprol XL] 50 mg PO DAILY #30 tab Changed Furosemide [Lasix] 40 mg PO DAILY #1 Discontinued metFORMIN HCL ER [Glucophage XR] 500 mg PO HS Fenofibrate,Micronized [Fenofibrate] 67 mg PO DAILY Atorvastatin [Lipitor] 80 mg PO DAILY Magnesium Oxide [Mag-Ox] 400 mg PO BID #0 predniSONE See Taper PO DIRECTED Discharge Medication List Albuterol Sulfate [Albuterol Sulfate Hfa] 2 puff INHALATION RT-Q4H PRN 09/02/21 [History] Apixaban [Eliquis] 5 mg PO BID 09/02/21 [History] Citalopram Hydrobromide [CeleXA] 20 mg PO HS 09/02/21 [History] Omeprazole 20 mg PO HS 09/02/21 [History] allopurinoL [Zyloprim] 100 mg PO DAILY 09/02/21 [History] busPIRone HCL 10 mg PO BID 09/02/21 [History] Aspirin [Children's Aspirin] 81 mg PO HS 06/13/22 [History] Isosorbide Mononitrate ER [Imdur] 30 mg PO DAILY 06/16/23 [History] Dapagliflozin Propanediol [Farxiga] 5 mg PO DAILY 12/05/23 [History] Clotrimazole Cream [Lotrimin Cream] 1 applic TOPICAL BID PRN 06/03/24 [History] Ipratropium-Albuterol Nebulize [Duoneb 0.5 mg-3 mg/3 ml Soln] 3 ml INHALATION RT-TID #90 each 06/12/24 [Rx] Metoprolol Succinate (ER) [Toprol XL] 50 mg PO DAILY #30 tab 06/12/24 [Rx] Budesonide/Formoterol Fumarate [Symbicort 160-4.5 Mcg Inhaler] 1 puff INHALATION RT-BID 06/18/24 [History] Acetaminophen Tab [Tylenol Tab] 500 mg PO Q4H PRN #1 tablet 07/01/24 [Rx] Artificial Tears-Hypromellose [Artificial Tear Drops] 2 drops BOTH EYES TID PRN ml 07/01/24 [Rx] Atorvastatin [Lipitor] 40 mg PO HS tab 07/01/24 [Rx] Furosemide [Lasix] 40 mg PO DAILY #1 07/01/24 [Rx] INSULIN ASPART (NovoLOG) [NovoLOG (formulary)] 0 unit SQ ACHS each 07/01/24 [Rx] Nitroglycerin Sl Tabs [Nitrostat] 0.4 mg SUBLINGUAL Q5M PRN tab 07/01/24 [Rx] Psyllium Husk 100% [Metamucil Packet] 6 gm PO BID packet 07/01/24 [Rx] Tamsulosin [Flomax] 0.4 mg PO PC-SUPPER cap 07/01/24 [Rx] glipiZIDE [Glucotrol] 5 mg PO AC-BID tab 07/01/24 [Rx] Follow up Appointment(s)/Referral(s): Fernando Baker MD [Primary Care Provider] - 1-2 days [facility], [NON-STAFF] - Activity/Diet/Wound Care/Special Instructions: Renal diet Fluid restriction 1800 cc a day
--- NOTE | 2024-07-01 13:50 | P.PN ---
Subjective Progress Note Date: 07/01/24 Principal diagnosis: Constipation, rectal bleeding This a pleasant 79-year-old male with a significant past medical history including atrial fibrillation on Eliquis, asthma, coronary artery disease, diabetes mellitus, CVA, DVT, GERD, hyperlipidemia, hypertension, acute on chroni c kidney disorder who was admitted to the hospital as a NSTEMI, with acute kidney injury. Patient has been here for 11 days with multiple consultants following. Patient states yesterday he had a bowel movement and there was a little bit of streak of blood in his stool. Currently nursing was concerned and they did a stool for occult blood which was positive. Gastroenterology was consulted for blood in stool. Patient denies any history of GI bleed. States that he is straining to have bowel movements. He only had 1 episode with a little blood in his stool. Today he had a bowel movement with straining but no blood. Hemoglobin is stable at 14.3. Last colonoscopy was about 5 years ago. He denies any abdominal pain, nausea or vomiting. 07/01/2024 Patient seen and examined today as a follow-up. He was given an enema yesterday and has had 3-4 bowel movements since then. Nursing reports no blood in stool or rectal bleeding. He denies any abdominal pain, nausea or vomiting. No rep eat hemoglobin today. Patient had elevated LFTs on admission and are continuing to trend down, could be secondary to recent antibiotics, has cholestatic pattern however no abdominal pain. Liver unremarkable on recent renal CT. Objective - Vital Signs Vital signs: Vital Signs Temp 97.8 F 07/01/24 08:00 Pulse 61 07/01/24 08:00 Resp 16 07/01/24 08:00 BP 120/73 07/01/24 08:00 Pulse Ox 98 07/01/24 08:00 FiO2 Intake & Output 06/30/24 07/01/24 07/01/24 18:59 06:59 18:59 Intake Total 360 1106 10 Output Total 850 550 Balance -490 556 10 Weight 89.5 kg Intake: IV 10 Invasive Line 5 10 Oral 360 1106 Output: Urine 850 550 Other: Voiding Method Indwelling Catheter Indwelling Catheter # Bowel Movements 2 - Exam General appearance: The patient is alert, oriented, appears in no acute distress. HET: Head is normocephalic and atraumatic. Conjunctiva pink. Sclera anicteric. Neck: Supple without lymphadenopathy. Abdomen: Soft, nontender, nondistended. Extremities: Normal skin color and turgor. No pedal edema Skin: No rashes, no jaundice Neurological: No focal deficits. Alert and oriented. - Labs CBC & Chem 7: 06/30/24 06:37 07/01/24 06:37 Labs: Abnormal Lab Results - Last 24 Hours (Table) 06/30/24 06/30/24 06/30/24 Range/Units 11:14 16:15 20:07 Sodium (137-145) mmol/L Chloride (98-107) mmol/L Carbon Dioxide (22-30) mmol/L BUN (9-20) mg/dL Creatinine (0.66-1.25) mg/dL POC Glucose (mg/dL) 194 H 169 H 59 L (70-110) mg/dL Magnesium (1.6-2.3) mg/dL Total Bilirubin (0.2-1.3) mg/dL AST (17-59) U/L ALT (4-49) U/L Alkaline Phosphatase (38-126) U/L Total Protein (6.3-8.2) g/dL Albumin (3.5-5.0) g/dL 06/30/24 06/30/24 07/01/24 Range/Units 20:28 21:01 05:42 Sodium (137-145) mmol/L Chloride (98-107) mmol/L Carbon Dioxide (22-30) mmol/L BUN (9-20) mg/dL Creatinine (0.66-1.25) mg/dL POC Glucose (mg/dL) 52 L 184 H 65 L (70-110) mg/dL Magnesium (1.6-2.3) mg/dL Total Bilirubin (0.2-1.3) mg/dL AST (17-59) U/L ALT (4-49) U/L Alkaline Phosphatase (38-126) U/L Total Protein (6.3-8.2) g/dL Albumin (3.5-5.0) g/dL 07/01/24 Range/Units 06:37 Sodium 134 L (137-145) mmol/L Chloride 93 L (98-107) mmol/L Carbon Dioxide 34 H (22-30) mmol/L BUN 59 H (9-20) mg/dL Creatinine 1.60 H (0.66-1.25) mg/dL POC Glucose (mg/dL) (70-110) mg/dL Magnesium 2.4 H (1.6-2.3) mg/dL Total Bilirubin 1.4 H (0.2-1.3) mg/dL AST 81 H (17-59) U/L ALT 94 H (4-49) U/L Alkaline Phosphatase 186 H (38-126) U/L Total Protein 6.2 L (6.3-8.2) g/dL Albumin 3.3 L (3.5-5.0) g/dL Assessment and Plan (1) Positive fecal occult blood test Narrative/Plan: 79-year-old with multiple comorbidities hospitalized for last 11 days duration. States he is issues with straining and some constipation. Yesterday had a little bit of blood in his stool. He had a renal CT done that did show significant stool burden in the sigmoid colon and rectum with inflammatory changes possible sterile coral colitis. This is likely cause of bleeding. Will treat with enemas and laxatives. Then patient will need to be on a regular bowel regimen. No plans on endoscopic evaluation at this time. Current Visit: Yes Status: Acute Code(s): R19.5 - OTHER FECAL ABNORMALITIES SNOMED Code(s): 79299776 (2) Constipation Current Visit: Yes Status: Acute Code(s): K59.00 - CONSTIPATION, UNSPECIFIED SNOMED Code(s): 93216165 (3) Chronic renal disease Current Visit: Yes Status: Acute Code(s): N18.9 - CHRONIC KIDNEY DISEASE, UNSPECIFIED SNOMED Code(s): 509726989 (4) NSTEMI (non-ST elevated myocardial infarction) Current Visit: Yes Status: Acute Code(s): I21.4 - NON-ST ELEVATION (NSTEMI) MYOCARDIAL INFARCTION SNOMED Code(s): 19416321 (5) Atrial fibrillation Current Visit: No Status: Acute Code(s): I48.91 - UNSPECIFIED ATRIAL FIBRILLATION SNOMED Code(s): 76987653 (6) Coronary artery disease Current Visit: No Status: Acute Code(s): I25.10 - ATHSCL HEART DISEASE OF [place] CORONARY ARTERY W/O ANG PCTRS SNOMED Code(s): 40325630 (7) Hyperlipidemia Current Visit: No Status: Acute Code(s): E78.5 - HYPERLIPIDEMIA, UNSPECIFIED SNOMED Code(s): 51813224 (8) Hypertension Current Visit: No Status: Acute Code(s): I10 - ESSENTIAL (PRIMARY) HYPERTENSION SNOMED Code(s): 26456440 (9) Elevated LFTs Narrative/Plan: Elevated LFTs on admission likely multifactorial has cholestatic pattern however no abdominal pain no evidence underlying liver disease or gallbladder disease on the CT of the abdomen pelvis. Could be medication induced secondary to recent antibiotics for UTI or possible acute ischemic hepatitis which is now resolving. Current Visit: Yes Status: Acute Code(s): R79.89 - OTHER SPECIFIED ABNORMAL FINDINGS OF BLOOD CHEMISTRY SNOMED Code(s): 740352607 Plan: 1. Continue symptomatic and supportive care 2. Continue MiraLAX daily 3. Patient is status post enema with 3-4 bowel movements following 4. No plans on endoscopic evaluation 5. Recommend outpatient labs to trend LFTs 6. Diet as tolerated 7. May continue anticoagulation Thank you for this consultation, patient is cleared from gastroenterology for discharge. Dr. Namita Wellington I agree with the dictator's note, documented as a scribe by Pat Shah.
--- NOTE | 2024-07-01 15:20 | P.PN ---
Subjective Progress Note Date: 07/01/24 HISTORY OF PRESENT ILLNESS: This is a 78-year-old male patient of Dr. Juan Wellington with past medical history of paroxysmal atrial fibrillation, coronary artery disease on medical therapy, hypertension, hyperlipidemia, diabetes mellitus type 2, chronic kidney disease stage IIIb, family history of premature coronary artery disease. We have been asked to evaluate the patient for NSTEMI. Patient had a recent hospitalization 06/03 - 06/12 at which time he was seen by cardiology for persistent atrial fibrillation flat troponin secondary to hypoperfusion. Patient presented to the emergency center due to shortness of breath along with leg swelling. Symptoms have been going on for the past week. He has been taking his medications as directed at home. Blood pressure 107/74, heart rate 98, pulse ox 96% on 2 L nasal cannula. Patient has been started on Lasix drip and he is followed by nephrology. EKG: Atrial fibrillation with right bundle branch block Chest x-ray: Stable bilateral lower lobe infiltrate and small pleural effusion. Laboratory studies: WBC 17, hemoglobin 15.1. INR 1.5. Sodium 131, CO2 33, BUN 102, creatinine 2.21. Lactic acid 2.7. Troponin 0.47, 0.473, 0.468. proBNP 16,700. Home cardiac medications: Eliquis 5 mg twice daily, aspirin 81 mg daily, atorvastatin 80 mg daily, Farxiga 5 mg daily, fenofibrate 67 mg daily, Lasix 40 mg twice daily, Imdur 30 mg daily, lisinopril 10 mg at bedtime, magnesium oxide 800 mg twice daily, metoprolol succinate 50 mg daily. Lexiscan Cardiolite stress test performed 10/04/2023 in the office revealed negative stress test by EKG criteria. Abnormal nuclear scan showing evidence of inferior lateral myocardial infarction with LV systolic dysfunction and EF 40% without evidence of ischemia. Cardiac catheterization performed 09/02/2021 revealed moderate stenosis involving the right coronary artery. Echocardiogram performed 06/04/2024 revealed EF 25 %. Four-chamber enlargement. Mild mitral regurgitation. Mild to moderate tricuspid regurgitation, aortic valve sclerosis with calcification 06/22/2024 Patient examined this morning. Patient is sitting up in the chair. Patient currently denies chest pain or pressure. Reports shortness of breath is improving. He remains on IV Lasix and IV Diamox. Creatinine today 2.5. Patient's blood pressures have been low with a systolic in the 80s90s. 06/23/2024 Patient examined this morning at the bedside. Patient currently denies chest pain or pressure. He reports mild shortness of breath. He is maintained on IV diuretics per nephrology. Creatinine today 2.85. Patient is having runs of nonsustained ventricular tachycardia. Patient is asymptomatic with these episodes. Blood pressure is stable. Most recent reading 107/72. Addendum entered and electronically signed by Sobia Yeager NP-C 06/23/24 14:16: Notified by patients nurse that family arrived and stated patient is unable to take amio. Apparently, he was placed on this recently for afib rvr and had multiple adverse effects. However, this was never documented in the EMR as an allergy. Patients nurse states that patient is now lethargic and has a headache. Will DC amio. 06/24/2024 Patient examined this morning the bedside. He is sitting in the chair. Patient currently denies chest pain or pressure. He continues to report shortness of breath. No further episodes of ventricular tachycardia. His beta-jairo was increased yesterday. Blood pressure stable. Most recent reading 95/60. 06/25/2024 Patient examined this morning at the bedside. Patient currently denies chest p ain or pressure. He reports improvement in his shortness of breath. Creatinine today 3.13. Vital signs are stable. No further episodes of ventricular tachycardia. 06/26/2024 Patient examined this morning at the bedside. Patient denies any chest pain or pressure. He states his shortness of breath is improving. He does continue to report a cough. Nursing reports patient had a 6 and 9 beat run of V. tach this morning. Potassium was 3.1 and is currently being replaced. Magnesium 2.4. Patient remains on metoprolol. Creatinine 2.59. He remains off diuretics. Nephrology is following. 06/27/2024 Patient examined this morning at the bedside. Patient currently denies chest pain or pressure. Patient states he feels like his shortness of breath is getting worse compared to yesterday. Creatinine today is 2.19. He remains off diuretics. Potassium today 3.7. 06/28/2024 Patient examined this morning at the bedside. Patient currently denies chest pain or pressure. He states his breathing feels about the same today. Vital signs are stable. Patient did have an episode of hypoglycemia this morning. Nephrology is following and managing diuretics. 06/29/2024 Patient seen and examined. He is complaining of congestion in his chest today. Otherwise he is feeling okay. A little edema, no palpitations now but he has had yesterday. Daughter is at the bedside and concerned that he has had some hallucinations or confusion today. Plan is for discharge to [facility] in [facility]. Blood pressure 106/60, heart rate 60, pulse ox 98% on room air. 06/30/24 Patient seen and examined. He is complaining of swelling in his hands and not feeling well in general. He also complains of wheezing. Patient is not noted to have any concerning edema. He is currently on oral Lasix 40 mg daily per nephrology. Repeat blood work reveals hemoglobin 14.3, BUN 58 creatinine 1.52. Blood pressure 105/59, heart rate 77, pulse ox 90% on room air. 07/01/2024 Patient is scheduled for discharge today and family is transporting to [facility]. He denies having any chest pain. He does have some sputum production. He is off oxygen. He has minimal lower extremity edema which is improved. on room air.Blood pressure 115/76, heart rate 67, pulse ox 99% PHYSICAL EXAM: VITAL SIGNS: Reviewed. GENERAL: Well-developed . Repeat blood work reveals BUN 59 creatinine 1.6.in no acute distress. NECK: Supple. No JVD or thyromegaly LUNGS: Respirations even and unlabored. Lungs diminished bilaterally. HEART: Irregular rate and rhythm. S1 and S2 heard. EXTREMITIES: No clubbing or cyanosis. Peripheral pulses intact. No lower extremity edema noted. ASSESSMENT: Chronically elevated troponin due to poor renal clearance, less likely ACS Acute on chronic heart failure with reduced EF Acute on chronic kidney disease Hypotension, improving Ischemic cardiomyopathy, EF 25% Nonsustained ventricular tachycardia Permanent atrial fibrillation Coronary artery disease Hypertension Hyperlipidemia Diabetes mellitus type 2 Family history of premature coronary artery disease Obstructive uropathy with bilateral mild hydronephrosis PLAN: Continue current cardiac medications: Eliquis 2.5 mg twice daily, aspirin 81 mg daily, atorvastatin 40 mg at bedtime, Farxiga 5 mg daily, Imdur 30 mg daily, mag nesium oxide 400 mg twice daily, Toprol-XL 50 mg daily Continue to monitor kidney function. Diuretic management per nephrology, currently at oral Lasix 40 mg daily. Continue telemetry monitoring Continue current dose of metoprolol succinate 50 mg daily. Do not decrease dose due to patient having runs of ventricular tachycardia. Patient unable to tolerate amiodarone Recommend eventual AICD implantation Patient is cleared for discharge and recommend follow-up with a certified pesticide applicator in 1 to 2 weeks. Nurse practitioner note has been reviewed by physician. Signing provider agrees with the documented findings, assessment, and plan of care documented by [employer]ER as a scribe. Objective - Vital Signs Vital signs: Vital Signs Temp 98 F 07/01/24 11:58 Pulse 67 07/01/24 11:58 Resp 16 07/01/24 11:58 BP 115/76 07/01/24 11:58 Pulse Ox 99 07/01/24 11:58 FiO2 Intake & Output 06/30/24 07/01/24 07/01/24 18:59 06:59 18:59 Intake Total 360 1106 10 Output Total 850 550 Balance -490 556 10 Weight 89.5 kg Intake: IV 10 Invasive Line 5 10 Oral 360 1106 Output: Urine 850 550 Other: Voiding Method Indwelling Catheter Indwelling Catheter # Bowel Movements 2 - Labs CBC & Chem 7: 06/30/24 06:37 07/01/24 06:37 Labs: Abnormal Lab Results - Last 24 Hours (Table) 06/30/24 06/30/24 06/30/24 Range/Units 16:15 20:07 20:28 Sodium (137-145) mmol/L Chloride (98-107) mmol/L Carbon Dioxide (22-30) mmol/L BUN (9-20) mg/dL Creatinine (0.66-1.25) mg/dL POC Glucose (mg/dL) 169 H 59 L 52 L (70-110) mg/dL Magnesium (1.6-2.3) mg/dL Total Bilirubin (0.2-1.3) mg/dL AST (17-59) U/L ALT (4-49) U/L Alkaline Phosphatase (38-126) U/L Total Protein (6.3-8.2) g/dL Albumin (3.5-5.0) g/dL 06/30/24 07/01/24 07/01/24 Range/Units 21:01 05:42 06:37 Sodium 134 L (137-145) mmol/L Chloride 93 L (98-107) mmol/L Carbon Dioxide 34 H (22-30) mmol/L BUN 59 H (9-20) mg/dL Creatinine 1.60 H (0.66-1.25) mg/dL POC Glucose (mg/dL) 184 H 65 L (70-110) mg/dL Magnesium 2.4 H (1.6-2.3) mg/dL Total Bilirubin 1.4 H (0.2-1.3) mg/dL AST 81 H (17-59) U/L ALT 94 H (4-49) U/L Alkaline Phosphatase 186 H (38-126) U/L Total Protein 6.2 L (6.3-8.2) g/dL Albumin 3.3 L (3.5-5.0) g/dL
--- NOTE | 2024-07-01 17:47 | P.PN ---
Subjective Progress Note Date: 07/01/24 No acute overnight event, denies any flank pain. CT abdomen and pelvis showed no hydronephrosis or any ureteral or renal stones Objective - Vital Signs Vital signs: Vital Signs Temp 98 F 07/01/24 11:58 Pulse 67 07/01/24 11:58 Resp 16 07/01/24 11:58 BP 115/76 07/01/24 11:58 Pulse Ox 99 07/01/24 11:58 FiO2 Intake & Output 06/30/24 07/01/24 07/01/24 18:59 06:59 18:59 Intake Total 360 1106 10 Output Total 850 550 400 Balance -490 556 -390 Weight 89.5 kg Intake: IV 10 Invasive Line 5 10 Oral 360 1106 Output: Urine 850 550 400 Uretheral (Lindo) 400 Other: Voiding Method Indwelling Catheter Indwelling Catheter # Bowel Movements 2 - Labs CBC & Chem 7: 06/30/24 06:37 07/01/24 06:37 Labs: Abnormal Lab Results - Last 24 Hours (Table) 06/30/24 06/30/24 06/30/24 Range/Units 20:07 20:28 21:01 Sodium (137-145) mmol/L Chloride (98-107) mmol/L Carbon Dioxide (22-30) mmol/L BUN (9-20) mg/dL Creatinine (0.66-1.25) mg/dL POC Glucose (mg/dL) 59 L 52 L 184 H (70-110) mg/dL Magnesium (1.6-2.3) mg/dL Total Bilirubin (0.2-1.3) mg/dL AST (17-59) U/L ALT (4-49) U/L Alkaline Phosphatase (38-126) U/L Total Protein (6.3-8.2) g/dL Albumin (3.5-5.0) g/dL 07/01/24 07/01/24 Range/Units 05:42 06:37 Sodium 134 L (137-145) mmol/L Chloride 93 L (98-107) mmol/L Carbon Dioxide 34 H (22-30) mmol/L BUN 59 H (9-20) mg/dL Creatinine 1.60 H (0.66-1.25) mg/dL POC Glucose (mg/dL) 65 L (70-110) mg/dL Magnesium 2.4 H (1.6-2.3) mg/dL Total Bilirubin 1.4 H (0.2-1.3) mg/dL AST 81 H (17-59) U/L ALT 94 H (4-49) U/L Alkaline Phosphatase 186 H (38-126) U/L Total Protein 6.2 L (6.3-8.2) g/dL Albumin 3.3 L (3.5-5.0) g/dL Assessment and Plan Assessment: 79-year-old male strong history of kidney stones, and evidence of bilateral hydronephrosis. Creatinine is at baseline. Underwent a CT which showed no evidence of hydronephrosis or any stones. I reviewed the CT and agree with the radiologist finding. From urology standpoint no further evaluation is needed, he can follow-up with urology on as-needed basis
== END 2024-07-01 14:52 | disposition home or self-care (01) | DRG 291 ==
LOC: EC 12:34 → 3SCARD 16:01
PROVIDERS: ADMIT Hospitalist; ATTEND Hospitalist
DX: I13.0 Hypertensive heart and chronic kidney disease with heart failure and stage 1 through stage 4 chronic kidney disease, or unspecified chronic kidney disease (principal); G93.41 Metabolic encephalopathy; I50.23 Acute on chronic systolic (congestive) heart failure; K83.1 Obstruction of bile duct; N17.0 Acute kidney failure with tubular necrosis; B37.0 Candidal stomatitis; E87.1 Hypo-osmolality and hyponatremia; E87.4 Mixed disorder of acid-base balance; F05 Delirium due to known physiological condition; I47.20 Ventricular tachycardia, unspecified; I48.21 Permanent atrial fibrillation; K92.1 Melena; K75.9 Inflammatory liver disease, unspecified; E11.22 Type 2 diabetes mellitus with diabetic chronic kidney disease; I95.9 Hypotension, unspecified; E11.65 Type 2 diabetes mellitus with hyperglycemia; E11.649 Type 2 diabetes mellitus with hypoglycemia without coma; F32.A Depression, unspecified; Z79.01 Long term (current) use of anticoagulants; J45.20 Mild intermittent asthma, uncomplicated; N18.32 Chronic kidney disease, stage 3b; I08.3 Combined rheumatic disorders of mitral, aortic and tricuspid valves; I25.10 Atherosclerotic heart disease of native coronary artery without angina pectoris; I25.2 Old myocardial infarction; I25.5 Ischemic cardiomyopathy; F41.9 Anxiety disorder, unspecified; I45.10 Unspecified right bundle-branch block; K59.00 Constipation, unspecified; G89.29 Other chronic pain; R79.89 Other specified abnormal findings of blood chemistry; M10.9 Gout, unspecified; R26.9 Unspecified abnormalities of gait and mobility; L40.9 Psoriasis, unspecified; M19.90 Unspecified osteoarthritis, unspecified site; E78.5 Hyperlipidemia, unspecified; E87.6 Hypokalemia; M54.9 Dorsalgia, unspecified; K21.9 Gastro-esophageal reflux disease without esophagitis; Z79.4 Long term (current) use of insulin; Z79.51 Long term (current) use of inhaled steroids; Z79.82 Long term (current) use of aspirin; Z79.84 Long term (current) use of oral hypoglycemic drugs; Z79.899 Other long term (current) drug therapy; Z86.718 Personal history of other venous thrombosis and embolism; Z86.73 Personal history of transient ischemic attack (TIA), and cerebral infarction without residual deficits; Z87.442 Personal history of urinary calculi; Z95.5 Presence of coronary angioplasty implant and graft
CPT/HCPCS: 36415; 36600; 71045; 71046; 74019; 74150; 76770; 80048; 80053; 80061; 81001; 82272; 82805; 82947; 83036; 83605; 83735; 83880; 84132; 84484; 85025; 85610; 85730; 93005; 94640; 94760; 96365; 96366; 99285